=== PATIENT | female | born 1935 | race Caucasian/White ===

== ENCOUNTER 2017-02-15 19:11 | Inpatient (IN) | payer MEDICARE ==
[2017-02-15] MEDS ORDERED: SODIUM CHLORIDE 0.9% 1,000 ML IV ONE ×3 (19:53→21:36)
[2017-02-15 20:24] LABS: Anisocytosis Slight; Basophils % (A) 0 %; CH 28.4; CHCM 32.6; Eosinophils % (A) 0 %; HCT 46.2 % (34.0-46.0); HDW 2.64; HGB 14.6 gm/dL (11.4-16.0); Luc % (Auto) 2; Lymphocytes % (A) 6 %; MCH 27.6 pg (25.0-35.0); MCHC 31.5 g/dL (31.0-37.0); MCV 87.7 fL (80.0-100.0); Mean Platelet Volume 8.2; Monocytes % (A) 6 %; Neutrophils # (A) 14.2 k/uL (1.3-7.7); Neutrophils % (A) 86 %; RBC 5.27 m/uL (3.80-5.40); RDW 16.7 % (11.5-15.5); WBC 16.5 k/uL (3.8-10.6); WBC (Perox) 15.99
[2017-02-15 20:32] LABS: INR 1.3 (<1.2); Prothrombin Time 12.4 sec (9.0-12.0)
[2017-02-15 20:34] LABS: Calcium 10.7 mg/dL (8.4-10.2); Magnesium 2.3 mg/dL (1.6-2.3); Potassium 3.7 mmol/L (3.5-5.1); Total Bilirubin 1.1 mg/dL (0.2-1.3); Total Protein 6.6 g/dL (6.3-8.2)
--- NOTE | 2017-02-15 20:35 | CT ---
EXAMINATION TYPE: CT brain lety ni DATE OF EXAM: 02/15/2017 COMPARISON: NONE HISTORY: Fall CT DLP: 1633 mGycm Automated exposure control for dose reduction was used. TECHNIQUE: CT scan of the head and cervical spine are performed without contrast. FINDINGS: There is cerebral cortical atrophy. There is no mass effect nor midline shift. There is n o sign of intracranial hemorrhage. The calvarium is intact. There is mucosal thickening in the maxill jennifer sinuses. There is deformity of the right lobe. There is a few millimeter anterior subluxation of C3 in relation to C4. There is moderate narrowing o f C3-4 C4-5 disc spaces with spurring of the endplates. There is mild hypertrophic facet arthropathy. The skull base is intact. Posterior elements are intact. IMPRESSION: Cerebral atrophy. No acute intracranial abnormality. Mild chronic small vessel ischemia. Sinusitis. Spondylotic changes in the cervical spine. No fracture.
--- NOTE | 2017-02-15 20:36 | XR ---
EXAMINATION TYPE: XR pelvis AP view DATE OF EXAM: 02/15/2017 COMPARISON: NONE HISTORY: Pain TECHNIQUE: Single view FINDINGS: Pelvic ring is intact. Proximal femurs are intact. I see no fracture. Sacroiliac joints are intact. IMPRESSION: No fracture.
--- NOTE | 2017-02-15 20:37 | XR ---
EXAMINATION TYPE: XR chest 2V DATE OF EXAM: 02/15/2017 COMPARISON: NONE HISTORY: Fall. Chest pain. TECHNIQUE: Frontal and lateral views of the chest are obtained. FINDINGS: There is hiatal hernia. There is no heart failure. Heart size is normal. Costophrenic angl es are clear. There is no sign of pleural effusion or pneumothorax. There is severe right shoulder ten int subacromial joint space narrowing. IMPRESSION: Hiatal hernia. No active cardiopulmonary disease.
[2017-02-15 20:48] LABS: Partial Thromboplastin Time 21.7 sec (22.0-30.0)
[2017-02-15 20:56] LABS: Creatine Kinase MB 2.9 ng/mL (0.0-2.4); Troponin I 0.071 ng/mL (0.000-0.034)
[2017-02-15 21:09] LABS: Appearance,Urine Turbid (Clear); Bacteria,Urine Many /hpf; Bilirubin,Urine Negative (Negative); Glucose,Urine (UA) Negative (Negative); Ketones,Urine Negative (Negative); Leukocyte Esterase,Urine Large (Negative); Nitrite,Urine Negative (Negative); PH, Urine 5.5 (5.0-8.0); Particle Count 18113; Protein,Urine 2+ (Negative); RBC,Urine 3 /hpf (0-5); Specific Gravity,Urine 1.012 (1.001-1.035); Squamous Epithelial Cell,Urine 2 /hpf (0-4); UA Billing (MACRO vs. MICRO) MICRO; Urobilinogen,Urine <2.0 mg/dL (<2.0); WBC,Urine >182 /hpf (0-5)
[2017-02-15] MEDS ORDERED: SODIUM CHLORIDE 0.9% 1,000 ML IV SCH (21:45)
[2017-02-15] MEDS ORDERED: ASPIRIN 81 MG PO STA (22:07)
[2017-02-15] MEDS ORDERED: LEVOFLOXACIN 750MG-D5W PMX 750 MG in DEXTROSE/WATER 1 150ML.BAG IVPB STA (22:07)
[2017-02-15] MEDS ORDERED: HEPARIN SODIUM,PORCINE 5,000 UNIT/ML 1 ML VIAL IV ONE (22:07)
[2017-02-15] MEDS ORDERED: HEPARIN SODIUM,PORCINE/D5W PMX 25,000 UNIT in DEXTROSE/WATER 1 500ML.BAG IV SCH (22:15)
--- NOTE | 2017-02-15 22:31 | ED ---
Fall HPI - General Chief Complaint: Fall Stated Complaint: Fall Time Seen by Provider: 02/15/17 19:20 Source: EMS, RN notes reviewed, old records reviewed Mode of arrival: EMS - History of Present Illness Initial Comments: This is an 81-year-old female presenting to emergency Department after being found by her daughter after laying in her living room for the past 2 days. Apparently patient fell. She was found with her head resting on the back of her recliner. Patient started reports that she laid down her and did laying in her feces and urine. Patient's daughter reports she is extremely dehydrated and thirsty when they arrived. Patient denies any pain. She is extremely hard of hearing. Known history of kidney disease. She states that she's had no cardiac abnormalities. She denies any chest pain shortness of breath, denies any leg or hip pain or headache. - Related Data Home Medications Medication Instructions Recorded Confirmed Loratadine [Claritin] 10 mg PO DAILY 02/15/17 02/15/17 ALPRAZolam [Xanax] 0.5 mg PO TID 02/16/17 02/16/17 Albuterol Inhaler [Ventolin Hfa 2 puff INHALATION RT-Q4H PRN 02/16/17 02/16/17 Inhaler] Allopurinol [Zyloprim] 300 mg PO DAILY 02/16/17 02/16/17 Dicyclomine HCl 10 mg PO QID 02/16/17 02/16/17 Fluticasone Nasal [place] [Flonase 1 spray EA NOSTRIL DAILY 02/16/17 02/16/17 Nasal [place]] Hydrocodone/Acetaminophen [[place] 1 tab PO Q6HR PRN 02/16/17 02/16/17 5-325] Levothyroxine Sodium [Synthroid] 25 mcg PO DAILY 02/16/17 02/16/17 Potassium Chloride [K-Tab ER] 10 meq PO DAILY 02/16/17 02/16/17 Ranitidine HCl [Zantac] 150 mg PO BID 02/16/17 02/16/17 Allergies Allergy/AdvReac Type Severity Reaction Status Date / Time No Known Allergies Allergy Verified 02/15/17 20:23 Review of Systems ROS Statement: Those systems with pertinent positive or pertinent negative responses have been documented in the HPI. ROS Other: All systems not noted in ROS Statement are negative. Past Medical History Past Medical History: Dementia History of Any Multi-Drug Resistant Organisms: None Reported Past Surgical History: No Surgical Hx Reported Past Psychological History: No Psychological Hx Reported Smoking Status: Never smoker Past Alcohol Use History: None Reported Past Drug Use History: None Reported - Past Family History Father Family Medical History: No Reported History Mother Family Medical History: No Reported History, Osteoarthritis (OA), Rheumatoid Arthritis (RA) Additional Family Medical History / Comment(s): kidney problems, specific type unknown General Exam - General Exam Comments Initial Comments: Pleasant 81-year-old female. Patient is extremely hard of hearing. Limitations: no limitations General appearance: alert, in no apparent distress Head exam: Present: atraumatic, normocephalic, normal inspection Eye exam: Present: normal appearance, PERRL, EOMI. Absent: scleral icterus, conjunctival injection, periorbital swelling ENT exam: Present: normal exam, mucous membranes moist Neck exam: Present: normal inspection. Absent: tenderness, meningismus, lymphadenopathy Respiratory exam: Present: normal lung sounds bilaterally. Absent: respiratory distress, wheezes, rales, rhonchi, stridor Course Vital Signs 02/15/17 02/15/17 19:14 23:07 Temperature 97.8 F 97.8 F Pulse Rate 78 78 Respiratory 18 16 Rate Blood Pressure 101/58 125/79 O2 Sat by Pulse 98 99 Oximetry Medical Decision Making - Medical Decision Making 9-year-old female presents or urgency department on her living room laying on the floor for 2 days. She is lingering her own feces and stool. Patient has a known history of kidney disease. Patient labwork was reviewed, evidence of urinary tract infection, pelvis of leukocytosis. Patient's chest x-ray KUB completed CT brain and C-spine were negative for any acute process. Patient also had elevated lactic acid. Patient does appear to be very dehydrated elevated BUN/creatinine. Patient was given 2 L fluids, started on Rocephin for her urinary tract infection, as well as noted elevated troponin. We'll repeat the troponin care. Patient be admitted at this time. - Lab Data Result diagrams: 02/17/17 06:02 02/17/17 06:02 Lab Results 02/15/17 02/15/17 02/15/17 Range/Units 20:05 20:05 20:05 WBC 16.5 H (3.8-10.6) k/uL RBC 5.27 (3.80-5.40) m/uL Hgb 14.6 (11.4-16.0) gm/dL Hct 46.2 H (34.0-46.0) % MCV 87.7 (80.0-100.0) fL MCH 27.6 (25.0-35.0) pg MCHC 31.5 (31.0-37.0) g/dL RDW 16.7 H (11.5-15.5) % Plt Count 359 (150-450) k/uL Neutrophils % 86 % Lymphocytes % 6 % Monocytes % 6 % Eosinophils % 0 % Basophils % 0 % Neutrophils # 14.2 H (1.3-7.7) k/uL Lymphocytes # 1.0 (1.0-4.8) k/uL Monocytes # 1.0 (0-1.0) k/uL Eosinophils # 0.0 (0-0.7) k/uL Basophils # 0.0 (0-0.2) k/uL Anisocytosis Slight PT 12.4 H (9.0-12.0) sec INR 1.3 H (<1.2) APTT 21.7 L (22.0-30.0) sec Sodium 146 H (137-145) mmol/L Potassium 3.7 (3.5-5.1) mmol/L Chloride 103 (98-107) mmol/L Carbon Dioxide 29 (22-30) mmol/L Anion Gap 14 mmol/L BUN 91 H* (7-17) mg/dL Creatinine 2.80 H (0.52-1.04) mg/dL Est GFR (MDRD) Af Amer 20 (>60 ml/min/1.73 sqM) Est GFR (MDRD) Non-Af 16 (>60 ml/min/1.73 sqM) Glucose 120 H (74-99) mg/dL Lactic Ac Sepsis Rflx Plasma Lactic Acid Kuldip (0.7-2.0) mmol/L Calcium 10.7 H (8.4-10.2) mg/dL Magnesium 2.3 (1.6-2.3) mg/dL Total Bilirubin 1.1 (0.2-1.3) mg/dL AST 58 H (14-36) U/L ALT 27 (9-52) U/L Alkaline Phosphatase 82 (38-126) U/L Creatine Kinase 389 H (30-135) U/L Total Creatine Kinase (30-135) U/L CK-MB (CK-2) (0.0-2.4) ng/mL CK-MB (CK-2) Rel Index Troponin I (0.000-0.034) ng/mL Total Protein 6.6 (6.3-8.2) g/dL Albumin 3.6 (3.5-5.0) g/dL Urine Color Urine Appearance (Clear) Urine pH (5.0-8.0) Ur Specific [place] (1.001-1.035) Urine Protein (Negative) Urine Glucose (UA) (Negative) Urine Ketones (Negative) Urine Blood (Negative) Urine Nitrite (Negative) Urine Bilirubin (Negative) Urine Urobilinogen (<2.0) mg/dL Ur Leukocyte Esterase (Negative) Urine RBC (0-5) /hpf Urine WBC (0-5) /hpf Urine WBC Clumps (None) /hpf Ur Squamous Epith Cells (0-4) /hpf Urine Bacteria (None) /hpf Hyaline Casts (0-2) /lpf Urine Yeast (Budding) (None) /hpf 02/15/17 02/15/17 02/15/17 Range/Units 20:05 20:05 20:47 WBC (3.8-10.6) k/uL RBC (3.80-5.40) m/uL Hgb (11.4-16.0) gm/dL Hct (34.0-46.0) % MCV (80.0-100.0) fL MCH (25.0-35.0) pg MCHC (31.0-37.0) g/dL RDW (11.5-15.5) % Plt Count (150-450) k/uL Neutrophils % % Lymphocytes % % Monocytes % % Eosinophils % % Basophils % % Neutrophils # (1.3-7.7) k/uL Lymphocytes # (1.0-4.8) k/uL Monocytes # (0-1.0) k/uL Eosinophils # (0-0.7) k/uL Basophils # (0-0.2) k/uL Anisocytosis PT (9.0-12.0) sec INR (<1.2) APTT (22.0-30.0) sec Sodium (137-145) mmol/L Potassium (3.5-5.1) mmol/L Chloride (98-107) mmol/L Carbon Dioxide (22-30) mmol/L Anion Gap mmol/L BUN (7-17) mg/dL Creatinine (0.52-1.04) mg/dL Est GFR (MDRD) Af Amer (>60 ml/min/1.73 sqM) Est GFR (MDRD) Non-Af (>60 ml/min/1.73 sqM) Glucose (74-99) mg/dL Lactic Ac Sepsis Rflx Y Plasma Lactic Acid Kuldip 3.0 H* (0.7-2.0) mmol/L Calcium (8.4-10.2) mg/dL Magnesium (1.6-2.3) mg/dL Total Bilirubin (0.2-1.3) mg/dL AST (14-36) U/L ALT (9-52) U/L Alkaline Phosphatase (38-126) U/L Creatine Kinase (30-135) U/L Total Creatine Kinase 368 H (30-135) U/L CK-MB (CK-2) 2.9 H* (0.0-2.4) ng/mL CK-MB (CK-2) Rel Index 0.8 Troponin I 0.071 H* (0.000-0.034) ng/mL Total Protein (6.3-8.2) g/dL Albumin (3.5-5.0) g/dL Urine Color Urine Appearance (Clear) Urine pH (5.0-8.0) Ur Specific [place] (1.001-1.035) Urine Protein (Negative) Urine Glucose (UA) (Negative) Urine Ketones (Negative) Urine Blood (Negative) Urine Nitrite (Negative) Urine Bilirubin (Negative) Urine Urobilinogen (<2.0) mg/dL Ur Leukocyte Esterase (Negative) Urine RBC (0-5) /hpf Urine WBC (0-5) /hpf Urine WBC Clumps (None) /hpf Ur Squamous Epith Cells (0-4) /hpf Urine Bacteria (None) /hpf Hyaline Casts (0-2) /lpf Urine Yeast (Budding) (None) /hpf 02/15/17 Range/Units 20:50 WBC (3.8-10.6) k/uL RBC (3.80-5.40) m/uL Hgb (11.4-16.0) gm/dL Hct (34.0-46.0) % MCV (80.0-100.0) fL MCH (25.0-35.0) pg MCHC (31.0-37.0) g/dL RDW (11.5-15.5) % Plt Count (150-450) k/uL Neutrophils % % Lymphocytes % % Monocytes % % Eosinophils % % Basophils % % Neutrophils # (1.3-7.7) k/uL Lymphocytes # (1.0-4.8) k/uL Monocytes # (0-1.0) k/uL Eosinophils # (0-0.7) k/uL Basophils # (0-0.2) k/uL Anisocytosis PT (9.0-12.0) sec INR (<1.2) APTT (22.0-30.0) sec Sodium (137-145) mmol/L Potassium (3.5-5.1) mmol/L Chloride (98-107) mmol/L Carbon Dioxide (22-30) mmol/L Anion Gap mmol/L BUN (7-17) mg/dL Creatinine (0.52-1.04) mg/dL Est GFR (MDRD) Af Amer (>60 ml/min/1.73 sqM) Est GFR (MDRD) Non-Af (>60 ml/min/1.73 sqM) Glucose (74-99) mg/dL Lactic Ac Sepsis Rflx Plasma Lactic Acid Kuldip (0.7-2.0) mmol/L Calcium (8.4-10.2) mg/dL Magnesium (1.6-2.3) mg/dL Total Bilirubin (0.2-1.3) mg/dL AST (14-36) U/L ALT (9-52) U/L Alkaline Phosphatase (38-126) U/L Creatine Kinase (30-135) U/L Total Creatine Kinase (30-135) U/L CK-MB (CK-2) (0.0-2.4) ng/mL CK-MB (CK-2) Rel Index Troponin I (0.000-0.034) ng/mL Total Protein (6.3-8.2) g/dL Albumin (3.5-5.0) g/dL Urine Color Yellow Urine Appearance Turbid H (Clear) Urine pH 5.5 (5.0-8.0) Ur Specific [place] 1.012 (1.001-1.035) Urine Protein 2+ H (Negative) Urine Glucose (UA) Negative (Negative) Urine Ketones Negative (Negative) Urine Blood Small H (Negative) Urine Nitrite Negative (Negative) Urine Bilirubin Negative (Negative) Urine Urobilinogen <2.0 (<2.0) mg/dL Ur Leukocyte Esterase Large H (Negative) Urine RBC 3 (0-5) /hpf Urine WBC >182 H (0-5) /hpf Urine WBC Clumps Many H (None) /hpf Ur Squamous Epith Cells 2 (0-4) /hpf Urine Bacteria Many H (None) /hpf Hyaline Casts 15 H (0-2) /lpf Urine Yeast (Budding) Few H (None) /hpf 02/15/17 22:31 EKG performed at 1924 shows normal sinus rhythm. Evidence of inferior infarct. Ventricular rate 78 beats were noted. AK interval 1:30. To ascertain 6 segs. QT QTc is 41 seconds. - Radiology Data Radiology results: report reviewed Chest x-ray was reviewed and negative for any acute process, pelvis x-ray was negative for any fracture. CT brainand showed no acute abnormality's, evidence of spinal changes. Disposition Clinical Impression: Fall, Renal insufficiency, Elevated troponin, [place] (hard of hearing), Dehydration, UTI (urinary tract infection) Disposition: ADMITTED IP TO THIS [facility] Time of Disposition: 22:31
[2017-02-15] MEDS ORDERED: NALOXONE 0.4 MG/ML 1 ML VIAL IV PRN (22:34)
[2017-02-16] MEDS ORDERED: MELATONIN 3 MG TABLET PO PRN (00:02)
[2017-02-16] MEDS ORDERED: ACETAMINOPHEN TAB 325 MG TAB PO PRN (00:02)
[2017-02-16 00:25] VITALS: BMI 28.0
--- NOTE | 2017-02-16 00:26 | P.HPIM ---
History of Present Illness H&P Date: 02/16/17 Chief Complaint: Fall This is a 9-year-old female with history of dementia no home medications Colazal and her home. Patient is very hard of hearing so is being quite a few difficulties obtaining history from her. Apparently patient was brought in by family will follow patient at her house on the floor. Last time they contacted the patient most 2 days prior to this admission and apparently she was in her usual state of health. Today when they come over to her home to take her out she was sitting down on the floor but urine all over and not able to get up but nothing apparent distress and awake. Patient states that she fell down on the floor may be even slowly lower herself and she cannot describe any circumstances or with her happened. Patient is currently in no any apparent distress. She denies any headache, shortness of breath or cough, chest pain, abdominal pain, diarrhea, dysuria, fever or chills. In the emergency department blood work was significant for leukocytosis elevated creatinine and BUNs and more than 100 of 80 WBCs in her urine with large leukocyte esterase. Patient vital signs were stable she was afebrile on admission but she did have elevated lactic acid up to 3 and mild elevation in her troponin. Patient states that she lives alone in her house with her family occasionally visiting. Review of Systems Constitutional: Denies chills, Denies fever Ears: bilateral: decreased hearing Cardiovascular: Denies chest pain, Denies shortness of breath Respiratory: Denies cough Gastrointestinal: Denies abdominal pain, Denies diarrhea, Denies nausea, Denies vomiting Genitourinary: Denies dysuria, Denies flank pain, Denies hematuria, Denies urgency, Denies urinary frequency Integumentary: Denies rash Neurological: Reports hearing difficulties Psychiatric: Reports memory loss, Denies anxiety Endocrine: Denies cold intolerance, Denies heat intolerance, Denies polyuria Past Medical History Past Medical History: Dementia History of Any Multi-Drug Resistant Organisms: None Reported Past Surgical History: No Surgical Hx Reported Past Psychological History: No Psychological Hx Reported Smoking Status: Never smoker Past Alcohol Use History: None Reported Past Drug Use History: None Reported Medications and Allergies Home Medications Medication Instructions Recorded Confirmed Type Loratadine [Claritin] 10 mg PO DAILY 02/15/17 02/15/17 History Allergies Allergy/AdvReac Type Severity Reaction Status Date / Time No Known Allergies Allergy Verified 02/15/17 20:23 Physical Exam Vitals: Vital Signs Temp Pulse Resp BP Pulse Ox 02/15/17 23:07 97.8 F 78 16 125/79 99 02/15/17 19:14 97.8 F 78 18 101/58 98 Intake and Output 02/15/17 02/15/17 02/16/17 14:59 22:59 06:59 Other: Weight 72.575 kg Patient Weight 02/16/17 06:59 Weight 72.575 kg - Constitutional General appearance: cooperative, no acute distress - EENT Right eye cataract Eyes: no scleral icterus ENT: hard of hearing, normal oropharynx - Neck Neck: no lymphadenopathy, normal ROM, no thyromegaly - Respiratory Respiratory: bilateral: CTA - Cardiovascular Rhythm: regular Heart sounds: normal: S1, S2 - Gastrointestinal Right costal vertebral angle tenderness present General gastrointestinal: normal bowel sounds, no organomegaly, soft, no tenderness - Integumentary Integumentary: no cellulitis, no rash - Neurologic Neurologic: CNII-XII intact - Musculoskeletal Musculoskeletal: no generalized weakness, strength equal bilaterally Neurological examination cranial nerves seem to be intact with limitation of patient level of cooperation Motor in upper and lower extremities 5 out of 5 proximally and distally DTRs are 1+ and symmetrical in patellar No clonus Plantar is flexor Results CBC & Chem 7: 02/15/17 20:05 02/15/17 20:05 Labs: Abnormal Lab Results - Last 24 Hours (Table) 02/15/17 02/15/17 02/15/17 Range/Units 20:05 20:05 20:05 WBC 16.5 H (3.8-10.6) k/uL Hct 46.2 H (34.0-46.0) % RDW 16.7 H (11.5-15.5) % Neutrophils # 14.2 H (1.3-7.7) k/uL PT 12.4 H (9.0-12.0) sec INR 1.3 H (<1.2) APTT 21.7 L (22.0-30.0) sec Sodium 146 H (137-145) mmol/L BUN 91 H* (7-17) mg/dL Creatinine 2.80 H (0.52-1.04) mg/dL Glucose 120 H (74-99) mg/dL Plasma Lactic Acid Kuldip (0.7-2.0) mmol/L Calcium 10.7 H (8.4-10.2) mg/dL AST 58 H (14-36) U/L Creatine Kinase 389 H (30-135) U/L Total Creatine Kinase (30-135) U/L CK-MB (CK-2) (0.0-2.4) ng/mL Troponin I (0.000-0.034) ng/mL Urine Appearance (Clear) Urine Protein (Negative) Urine Blood (Negative) Ur Leukocyte Esterase (Negative) Urine WBC (0-5) /hpf Urine WBC Clumps (None) /hpf Urine Bacteria (None) /hpf Hyaline Casts (0-2) /lpf Urine Yeast (Budding) (None) /hpf 02/15/17 02/15/17 02/15/17 Range/Units 20:05 20:05 20:50 WBC (3.8-10.6) k/uL Hct (34.0-46.0) % RDW (11.5-15.5) % Neutrophils # (1.3-7.7) k/uL PT (9.0-12.0) sec INR (<1.2) APTT (22.0-30.0) sec Sodium (137-145) mmol/L BUN (7-17) mg/dL Creatinine (0.52-1.04) mg/dL Glucose (74-99) mg/dL Plasma Lactic Acid Kuldip 3.0 H* (0.7-2.0) mmol/L Calcium (8.4-10.2) mg/dL AST (14-36) U/L Creatine Kinase (30-135) U/L Total Creatine Kinase 368 H (30-135) U/L CK-MB (CK-2) 2.9 H* (0.0-2.4) ng/mL Troponin I 0.071 H* (0.000-0.034) ng/mL Urine Appearance Turbid H (Clear) Urine Protein 2+ H (Negative) Urine Blood Small H (Negative) Ur Leukocyte Esterase Large H (Negative) Urine WBC >182 H (0-5) /hpf Urine WBC Clumps Many H (None) /hpf Urine Bacteria Many H (None) /hpf Hyaline Casts 15 H (0-2) /lpf Urine Yeast (Budding) Few H (None) /hpf Thrombosis Risk Factor Assmnt - DVT/VTE Prophylaxis DVT/VTE Prophylaxis: Pharmacologic Prophylaxis ordered Assessment and Plan (1) UTI (urinary tract infection) Narrative/Plan: Patient exhibits evidence of urinary tract infection with 30 for leukocytosis and elevated lactic acid consistent with sepsis She has a right CVA tenderness and I'm worried about acute pyelonephritis She was given levofloxacin in the emergency department Plan he is to start her on ceftriaxone I will also obtain urine and blood cultures Repeat lactic acid Continue IV fluids Check postvoiding residuals to rule out urinary retention as etiology of urinary tract infection Status: Acute (2) AVERY (acute kidney injury) Narrative/Plan: Favor pre-renal nonoliguric C PK mildly elevated and does not explain Check post voiding residuals to rule out urinary retention Monitor urine output and recheck BUNs/creatinine the morning Status: Acute (3) Elevated troponin Narrative/Plan: Suspect due to acute kidney injury No complaint of chest pain or shortness of breath Repeat troponin has been ordered and pending Status: Acute (4) Fall Narrative/Plan: Fall with dementia and home situation Patient definitely needs more support and likely will need penitentiary placement at the time of discharge Consults social work Consult physical and occupational therapy Status: Acute Time with Patient: Greater than 30
[2017-02-16 01:34] LABS: Cholesterol 106 mg/dL (<200); HDL Cholesterol 52 mg/dL (40-60)
[2017-02-16 02:21] LABS: Creatine Kinase MB 3.2 ng/mL (0.0-2.4); Troponin I 0.054 ng/mL (0.000-0.034)
[2017-02-16] MEDS ORDERED: SODIUM CHLORIDE 0.45% 1,000 ML IV SCH (06:30)
[2017-02-16 08:20] LABS: CH 27.3; CHCM 30.7; HCT 41.1 % (34.0-46.0); Hypochromasia Slight; MCH 28.3 pg (25.0-35.0); MCHC 31.6 g/dL (31.0-37.0); MCV 89.5 fL (80.0-100.0); Mean Platelet Volume 7.1; RBC 4.59 m/uL (3.80-5.40); RDW 15.5 % (11.5-15.5); WBC 12.7 k/uL (3.8-10.6)
[2017-02-16 08:24] LABS: Calcium 9.4 mg/dL (8.4-10.2); Magnesium 1.8 mg/dL (1.6-2.3); Total Bilirubin 0.5 mg/dL (0.2-1.3); Total Protein 5.5 g/dL (6.3-8.2)
[2017-02-16 08:49] LABS: Creatine Kinase MB 4.5 ng/mL (0.0-2.4); Troponin I 0.064 ng/mL (0.000-0.034)
--- NOTE | 2017-02-16 10:07 | P.PN ---
Subjective Principal diagnosis: Fall, weakness Patient is an 81-year-old female with history of dementia and ALLERGIC rhinitis who was brought in by family after being found covered in urine and feces on the floor for house. Her last known normal had been 2 days prior. In the emergency department she underwent an extensive evaluation. She was found to have a urinary tract infection with elevated lactic acid and was started on IV fluids and antibiotics. Her troponin was found to be slightly elevated. Arrangements were made for her to get admitted to the selective care unit. Upon admission her antibiotics were maintained. She was found to have a candidal infection of the left abdominal fold and nystatin was ordered. Patient seen and examined at bedside. She is extremely hard of hearing conversation is difficult. She states she has had diarrhea for a few days. She is also recently been treated for an urinary tract infection with antibiotics. She thought her urinary tract infection may not have been resolved and called her PCP but he was out of the office for one week. She denies any chest pain, shortness of breath, or nausea. Objective - Vital Signs Vital signs: Vital Signs Temp 98.6 F 02/16/17 04:00 Pulse 82 02/16/17 04:00 Resp 18 02/16/17 04:00 BP 120/59 02/16/17 04:00 Pulse Ox 97 02/16/17 04:00 Intake & Output 02/15/17 02/16/17 02/16/17 18:59 06:59 18:59 Intake Total 300 Balance 300 Weight 71.5 kg Intake: Oral 300 Other: Voiding Method Bedpan - Exam General: non toxic, no distress, appears at stated age Derm: no rashes, no lesions Head: atraumatic, normocephalic, symmetric Eyes: EOMI, no lid lag, anicteric sclera ENT: no post nasal drip, no thrush Mouth: no lip lesion, dry membranes moist Cardiovascular: S1S2 reg, no murmur, positive posterior tibial pulse bilateral, Lungs: CTA bilateral, no rhonchi, no rales , no accessory muscle use Abdominal: soft, nontender to palpation, no guarding, no appreciable organomegaly Ext: no gross muscle atrophy, no edema, no contractures Neuro: CN II-XI grossly intact, no focal neuro deficits Psych: Alert, oriented, appropriate affect - Labs CBC & Chem 7: 02/16/17 07:54 02/16/17 07:54 Labs: Abnormal Lab Results - Last 24 Hours (Table) 02/15/17 02/15/17 02/15/17 Range/Units 20:05 20:05 20:05 WBC 16.5 H (3.8-10.6) k/uL Hct 46.2 H (34.0-46.0) % RDW 16.7 H (11.5-15.5) % Neutrophils # 14.2 H (1.3-7.7) k/uL PT 12.4 H (9.0-12.0) sec INR 1.3 H (<1.2) APTT 21.7 L (22.0-30.0) sec Sodium 146 H (137-145) mmol/L Potassium (3.5-5.1) mmol/L BUN 91 H* (7-17) mg/dL Creatinine 2.80 H (0.52-1.04) mg/dL Glucose 120 H (74-99) mg/dL Plasma Lactic Acid Kuldip (0.7-2.0) mmol/L Calcium 10.7 H (8.4-10.2) mg/dL AST 58 H (14-36) U/L Creatine Kinase 389 H (30-135) U/L Total Creatine Kinase (30-135) U/L CK-MB (CK-2) (0.0-2.4) ng/mL Troponin I (0.000-0.034) ng/mL Total Protein (6.3-8.2) g/dL Albumin (3.5-5.0) g/dL Urine Appearance (Clear) Urine Protein (Negative) Urine Blood (Negative) Ur Leukocyte Esterase (Negative) Urine WBC (0-5) /hpf Urine WBC Clumps (None) /hpf Urine Bacteria (None) /hpf Hyaline Casts (0-2) /lpf Urine Yeast (Budding) (None) /hpf 02/15/17 02/15/17 02/15/17 Range/Units 20:05 20:05 20:50 WBC (3.8-10.6) k/uL Hct (34.0-46.0) % RDW (11.5-15.5) % Neutrophils # (1.3-7.7) k/uL PT (9.0-12.0) sec INR (<1.2) APTT (22.0-30.0) sec Sodium (137-145) mmol/L Potassium (3.5-5.1) mmol/L BUN (7-17) mg/dL Creatinine (0.52-1.04) mg/dL Glucose (74-99) mg/dL Plasma Lactic Acid Kuldip 3.0 H* (0.7-2.0) mmol/L Calcium (8.4-10.2) mg/dL AST (14-36) U/L Creatine Kinase (30-135) U/L Total Creatine Kinase 368 H (30-135) U/L CK-MB (CK-2) 2.9 H* (0.0-2.4) ng/mL Troponin I 0.071 H* (0.000-0.034) ng/mL Total Protein (6.3-8.2) g/dL Albumin (3.5-5.0) g/dL Urine Appearance Turbid H (Clear) Urine Protein 2+ H (Negative) Urine Blood Small H (Negative) Ur Leukocyte Esterase Large H (Negative) Urine WBC >182 H (0-5) /hpf Urine WBC Clumps Many H (None) /hpf Urine Bacteria Many H (None) /hpf Hyaline Casts 15 H (0-2) /lpf Urine Yeast (Budding) Few H (None) /hpf 02/16/17 02/16/17 02/16/17 Range/Units 01:09 07:33 07:54 WBC (3.8-10.6) k/uL Hct (34.0-46.0) % RDW (11.5-15.5) % Neutrophils # (1.3-7.7) k/uL PT (9.0-12.0) sec INR (<1.2) APTT (22.0-30.0) sec Sodium (137-145) mmol/L Potassium 3.0 L* (3.5-5.1) mmol/L BUN 68 H (7-17) mg/dL Creatinine 2.30 H (0.52-1.04) mg/dL Glucose (74-99) mg/dL Plasma Lactic Acid Kuldip (0.7-2.0) mmol/L Calcium (8.4-10.2) mg/dL AST 41 H (14-36) U/L Creatine Kinase (30-135) U/L Total Creatine Kinase 342 H 337 H (30-135) U/L CK-MB (CK-2) 3.2 H* 4.5 H* (0.0-2.4) ng/mL Troponin I 0.054 H* 0.064 H* (0.000-0.034) ng/mL Total Protein 5.5 L (6.3-8.2) g/dL Albumin 2.9 L (3.5-5.0) g/dL Urine Appearance (Clear) Urine Protein (Negative) Urine Blood (Negative) Ur Leukocyte Esterase (Negative) Urine WBC (0-5) /hpf Urine WBC Clumps (None) /hpf Urine Bacteria (None) /hpf Hyaline Casts (0-2) /lpf Urine Yeast (Budding) (None) /hpf 02/16/17 Range/Units 07:54 WBC 12.7 H (3.8-10.6) k/uL Hct (34.0-46.0) % RDW (11.5-15.5) % Neutrophils # (1.3-7.7) k/uL PT (9.0-12.0) sec INR (<1.2) APTT (22.0-30.0) sec Sodium (137-145) mmol/L Potassium (3.5-5.1) mmol/L BUN (7-17) mg/dL Creatinine (0.52-1.04) mg/dL Glucose (74-99) mg/dL Plasma Lactic Acid Kuldip (0.7-2.0) mmol/L Calcium (8.4-10.2) mg/dL AST (14-36) U/L Creatine Kinase (30-135) U/L Total Creatine Kinase (30-135) U/L CK-MB (CK-2) (0.0-2.4) ng/mL Troponin I (0.000-0.034) ng/mL Total Protein (6.3-8.2) g/dL Albumin (3.5-5.0) g/dL Urine Appearance (Clear) Urine Protein (Negative) Urine Blood (Negative) Ur Leukocyte Esterase (Negative) Urine WBC (0-5) /hpf Urine WBC Clumps (None) /hpf Urine Bacteria (None) /hpf Hyaline Casts (0-2) /lpf Urine Yeast (Budding) (None) /hpf Assessment and Plan Plan: #UTI, present on admission, not related to Urban catheter -Continue with Rocephin -Await blood and urine cultures -IV fluids #Elevated lactic acid, improved -Continue with IV fluids #Acute kidney injury with probable baseline chronic kidney disease -Avoid nephrotoxic agents -Related to dehydration -IV fluids -Follow basic metabolic profile #Elevated troponin -Secondary to acute kidney injury, flat, no EKG changes -Check echocardiogram, if normal no additional investigation needed #Hypercalcemia, likely secondary to dehydration -Improved after IV fluid resuscitation #Hypokalemia -Replace and recheck #Fall -PT/OT evaluation, may need placement on discharge #Possible dementia -Safe and supportive environment DVT prophylaxis: Heparin Discussed with: Patient, nursing, awaiting for family to arrive Anticipated discharge: 48-[address] A total of 45 minutes was spent on the care of this complex patient more than 50 % of the time was spent in counseling and care coordination.
[2017-02-16] MEDS: POTASSIUM CHLORIDE 20 MEQ, LIDOCAINE 2% INJ 20 MG in SODIUM CHLORIDE 0.9% 100 ML IVPB SCH ×2 (10:31→12:51)
[2017-02-16] MEDS ORDERED: ONDANSETRON 4 MG/2 ML VIAL IVP PRN (11:34)
[2017-02-16] MEDS: HEPARIN SODIUM,PORCINE 5,000 UNIT/ML 1 ML VIAL SQ SCH ×2 (12:51→21:05)
[2017-02-16] MEDS ORDERED: ALBUTEROL NEBULIZED 2.5 MG/3 ML INHALATION PRN (13:31)
[2017-02-16] MEDS ORDERED: HYDROcodone/APAP 5-325MG 1 EACH TAB PO PRN (13:31)
[2017-02-16] MEDS: DICYCLOMINE 10 MG CAP PO SCH ×2 (17:44→21:04)
[2017-02-16] MEDS: LORATADINE 10 MG TAB PO SCH (17:44)
[2017-02-16] MEDS: ALPRAZolam 0.5 MG TAB PO SCH ×2 (17:45→21:04)
[2017-02-16] MEDS: NYSTATIN 100,000 UNIT/GM POWD 15 GM TOPICAL SCH (21:04)
[2017-02-17 06:15] LABS: Anisocytosis Slight; CH 28.3; CHCM 32.1; HDW 2.61; HGB 11.4 gm/dL (11.4-16.0); MCH 27.2 pg (25.0-35.0); MCHC 30.7 g/dL (31.0-37.0); MCV 88.7 fL (80.0-100.0); Mean Platelet Volume 8.7; RBC 4.18 m/uL (3.80-5.40); RDW 16.6 % (11.5-15.5); WBC 9.2 k/uL (3.8-10.6)
[2017-02-17] MEDS: LEVOTHYROXINE 25 MCG TAB PO SCH (06:17)
[2017-02-17 06:21] LABS: Calcium 9.4 mg/dL (8.4-10.2); Magnesium 1.7 mg/dL (1.6-2.3); Potassium 3.3 mmol/L (3.5-5.1); Total Bilirubin 0.3 mg/dL (0.2-1.3); Total Protein 4.9 g/dL (6.3-8.2)
[2017-02-17] MEDS ORDERED: POTASSIUM CHLORIDE ORAL LIQUID 40 MEQ/30 ML CUP PO ONE (08:00)
--- NOTE | 2017-02-17 08:56 | P.PN ---
Subjective Principal diagnosis: Fall, weakness Patient is an 81-year-old female with history of dementia, HTN, CHF, and allergic rhinitis who was brought in by family after being found covered in urine and feces on the floor of her house. Her last known normal had been 2 days prior. In the emergency department she underwent an extensive evaluation. She was found to have a urinary tract infection with elevated lactic acid and was started on IV fluids and antibiotics. Her troponin was found to be slightly elevated. She was admitted to the selective care unit. Upon admission her antibiotics were maintained. She was found to have a candidal infection of the left abdominal fold and nystatin was ordered. She had a rapid improvement in her WBC count. She only wanted to be seen for 1 thing and did not want a more thorough investigation, she did not want to discuss code status. Patient seen and examined at bedside. She is extremely hard of hearing conversation is difficult, everything is communicated in writing. No nausea, no vomiting, diarrhea is getting better, no sob. Objective - Vital Signs Vital signs: Vital Signs Temp 98.3 F 02/17/17 04:00 Pulse 103 H 02/17/17 08:00 Resp 18 02/17/17 08:00 BP 137/78 02/17/17 08:00 Pulse Ox 99 02/17/17 08:00 Intake & Output 02/16/17 02/17/17 02/17/17 18:59 06:59 18:59 Intake Total 772 1200 Output Total 500 Balance 772 700 Weight 71.5 kg 72.5 kg 72.5 kg Intake: IV 1200 Sodium Chloride 0.45% 1, 1200 000 ml @ 75 mls/hr IV . [id number] [facility] Rx#:[id number] Oral 772 Output: Urine 500 Other: Voiding Method Bedpan Bedpan Bedpan Incontinent Incontinent # Voids 3 1 - Exam General: non toxic, no distress, appears at stated age Derm: rash left groin with erythema, excoriation and cream discharge. Head: atraumatic, normocephalic, symmetric Eyes: EOMI, no lid lag, anicteric sclera ENT: [place] [facility], no post nasal drip, no thrush Mouth: no lip lesion, dry membranes moist Cardiovascular: S1S2 reg, no murmur, positive posterior tibial pulse bilateral, Lungs: CTA bilateral, no rhonchi, no rales , no accessory muscle use Abdominal: soft, nontender to palpation, no guarding, no appreciable organomegaly Ext: no gross muscle atrophy, no edema, no contractures Neuro: CN II-XI grossly intact, no focal neuro deficits Psych: Alert, oriented, appropriate affect - Labs CBC & Chem 7: 02/17/17 06:02 02/17/17 06:02 Labs: Abnormal Lab Results - Last 24 Hours (Table) 02/17/17 02/17/17 Range/Units 06:02 06:02 MCHC 30.7 L (31.0-37.0) g/dL RDW 16.6 H (11.5-15.5) % Potassium 3.3 L (3.5-5.1) mmol/L Chloride 108 H (98-107) mmol/L BUN 52 H (7-17) mg/dL Creatinine 2.00 H (0.52-1.04) mg/dL Total Protein 4.9 L (6.3-8.2) g/dL Albumin 2.5 L (3.5-5.0) g/dL Microbiology - Last 24 Hours (Table) 02/16/17 13:00 Urine Culture - Preliminary Urine,Voided Assessment and Plan Plan: #UTI, present on admission, not related to Urban catheter -Continue with Rocephin -Await blood and urine cultures -IV fluids #Niya intertrigo - Nystatin powder #Acute kidney injury with probable baseline chronic kidney disease -Avoid nephrotoxic agents -Related to dehydration -IV fluids -Follow basic metabolic profile, following with Dr. Can has CKD Stage IV per daughter #Elevated troponin -Secondary to acute kidney injury, flat, no EKG changes -Check echocardiogram 02/18, if normal no additional investigation needed #Hypokalemia -Replace and recheck #Fall -PT/OT evaluation, may need placement on discharge and social work is consulted #Possible dementia -Safe and supportive environment Resolved: Elevated lactic acid Hypercalcemia Transfer to medical floor DVT prophylaxis: Heparin Discussed with: Patient, nursing, Anticipated discharge: 48-[address]: senior living facility A total of 45 minutes was spent on the care of this complex patient more than 50 % of the time was spent in counseling and care coordination.
[2017-02-17] MEDS: ALPRAZolam 0.5 MG TAB PO SCH ×3 (10:41→21:56)
[2017-02-17] MEDS: FAMOTIDINE 20 MG TAB PO SCH (10:42)
[2017-02-17] MEDS: DICYCLOMINE 10 MG CAP PO SCH ×4 (10:42→21:56)
[2017-02-17] MEDS: ALLOPURINOL 300 MG TAB PO SCH (10:42)
[2017-02-17] MEDS: HEPARIN SODIUM,PORCINE 5,000 UNIT/ML 1 ML VIAL SQ SCH ×2 (10:42→21:56)
[2017-02-17] MEDS: LORATADINE 10 MG TAB PO SCH (10:42)
[2017-02-17] MEDS: POTASSIUM CHLORIDE ER 10 MEQ TAB.ER.PRT PO SCH (10:43)
[2017-02-17] MEDS: FLUTICASONE 50MCG/SPRAY NASAL 16GM EA NOSTRIL SCH (10:44)
[2017-02-17] MEDS: NYSTATIN 100,000 UNIT/GM POWD 15 GM TOPICAL SCH ×2 (10:45→21:56)
[2017-02-18] MEDS: LEVOTHYROXINE 25 MCG TAB PO SCH (06:58)
[2017-02-18 07:08] LABS: CHCM 30.3; HCT 35.4 % (34.0-46.0); HDW 2.52; HGB 11.3 gm/dL (11.4-16.0); Hypochromasia Moderate; MCH 28.6 pg (25.0-35.0); MCHC 31.8 g/dL (31.0-37.0); MCV 89.8 fL (80.0-100.0); Mean Platelet Volume 7.6; RBC 3.94 m/uL (3.80-5.40); RDW 15.8 % (11.5-15.5); WBC 8.2 k/uL (3.8-10.6)
[2017-02-18 07:29] LABS: Calcium 9.8 mg/dL (8.4-10.2); Magnesium 1.6 mg/dL (1.6-2.3); Potassium 4.6 mmol/L (3.5-5.1); Total Bilirubin 0.3 mg/dL (0.2-1.3); Total Protein 5.2 g/dL (6.3-8.2)
[2017-02-18] MEDS: POTASSIUM CHLORIDE ER 10 MEQ TAB.ER.PRT PO SCH (08:49)
[2017-02-18] MEDS: DICYCLOMINE 10 MG CAP PO SCH ×4 (08:49→21:06)
[2017-02-18] MEDS: LORATADINE 10 MG TAB PO SCH (08:49)
[2017-02-18] MEDS: HEPARIN SODIUM,PORCINE 5,000 UNIT/ML 1 ML VIAL SQ SCH ×2 (08:49→21:05)
[2017-02-18] MEDS: FAMOTIDINE 20 MG TAB PO SCH (08:49)
[2017-02-18] MEDS: ALLOPURINOL 300 MG TAB PO SCH (08:49)
[2017-02-18] MEDS: FLUTICASONE 50MCG/SPRAY NASAL 16GM EA NOSTRIL SCH (08:49)
[2017-02-18] MEDS: NYSTATIN 100,000 UNIT/GM POWD 15 GM TOPICAL SCH ×2 (08:49→21:06)
[2017-02-18] MEDS: ALPRAZolam 0.5 MG TAB PO SCH ×3 (08:53→23:17)
--- NOTE | 2017-02-18 18:08 | P.PN ---
Subjective Principal diagnosis: patient is seen and examined , in follow up for UTI 81 year old female with history of dementia, CHF, HTN presented after being found at home covered in urine and feces on the floor. She was found to have urinary tract infection and started on empiric antibiotics. patient is hard of hearing and communication carried on with writing. she denies any new complaint, doing well, denies any chest pain or trouble breathing. patient requests to be sent home. . Objective - Vital Signs Vital signs: Vital Signs Temp 97.4 F L 02/18/17 15:00 Pulse 101 H 02/18/17 16:00 Resp 16 02/18/17 16:00 BP 154/94 02/18/17 15:00 Pulse Ox 97 02/18/17 15:00 Intake & Output 02/17/17 02/18/17 02/18/17 18:59 06:59 18:59 Intake Total 240 840 710 Output Total 500 Balance 240 840 210 Weight 72.5 kg 74.5 kg 74.5 kg Intake: Intake, IV Titration 50 100 Amount cefTRIAXone 1,000 mg In 50 100 Sodium Chloride 0.9% 50 ml @ 100 mls/hr IVPB Q24H [facility] Rx#:[id number] Oral 240 790 610 Output: Urine 500 Other: Voiding Method Bedpan Bedpan Incontinent Incontinent Incontinent # Voids 1 2 3 - Exam Constitutional: vital signs stable, Not in acute distress, pleasant, conversant Lungs: Clear to auscultation bilaterally, clear to percussion, normal respiratory effort no use of accessory muscles Cardiovascular: Regular rate and rhythm, no murmurs, no gallops, no rubs, no peripheral edema Gastrointestinal: Soft, no tenderness to palpation, no palpable hepatosplenomegally, bowel sounds positive Extremities: No digital cyanosis or clubbing, peripheral pulses palpable and equal over bilateral radial arteries and dorsalis pedis artery, no calf muscle tenderness Psych: Alert , deaf - Labs CBC & Chem 7: 02/18/17 06:28 02/18/17 06:28 Labs: Abnormal Lab Results - Last 24 Hours (Table) 02/18/17 02/18/17 Range/Units 06:28 06:28 Hgb 11.3 L (11.4-16.0) gm/dL RDW 15.8 H (11.5-15.5) % Chloride 111 H (98-107) mmol/L BUN 42 H (7-17) mg/dL Creatinine 2.01 H (0.52-1.04) mg/dL Total Protein 5.2 L (6.3-8.2) g/dL Albumin 2.7 L (3.5-5.0) g/dL Microbiology - Last 24 Hours (Table) 02/16/17 12:34 Blood Culture - Preliminary Blood No Growth after 48 hours 02/16/17 13:00 Urine Culture - Final Urine,Voided Assessment and Plan (1) UTI (urinary tract infection) Status: Acute (2) Dementia Status: Acute (3) AVERY (acute kidney injury) Status: Acute (4) Elevated troponin Status: Acute (5) Fall Status: Acute Plan: patient with UTI present with admission , no parmar catheter cultures negative to date on rocephine , will discontinue, patient received 3 days elevated trops most likely 2/2 CKD and AVERY denies any chest pain or trouble breathing AVERY on CKD avoid nephrotoxic meds patient lives alone and was found on the floor covered with feces and urine, dehydrated dementia, frailty and advanced age patient evaluated by PT/OT I recommend placement, foster care social worker assisting in that matter, await placement for discharge DVT PPX on heparin sc continue with supportive care
[2017-02-19] MEDS: LEVOTHYROXINE 25 MCG TAB PO SCH (07:04)
[2017-02-19 08:26] LABS: Basophils % (A) 0 %; CH 26.8; CHCM 30.6; Eosinophils # (A) 0.3 k/uL (0-0.7); Eosinophils % (A) 4 %; HCT 38.1 % (34.0-46.0); HDW 2.58; HGB 12.1 gm/dL (11.4-16.0); Hypochromasia Moderate; Luc # (Auto) 0.15; Luc % (Auto) 2; Lymphocytes % (A) 12 %; MCH 28.1 pg (25.0-35.0); MCHC 31.9 g/dL (31.0-37.0); MCV 88.2 fL (80.0-100.0); Mean Platelet Volume 7.3; Monocytes # (A) 0.4 k/uL (0-1.0); Monocytes % (A) 4 %; Neutrophils # (A) 6.3 k/uL (1.3-7.7); Neutrophils % (A) 78 %; RBC 4.32 m/uL (3.80-5.40); RDW 15.9 % (11.5-15.5); WBC 8.1 k/uL (3.8-10.6); WBC (Perox) 8.58
[2017-02-19] MEDS: ALPRAZolam 0.5 MG TAB PO SCH ×3 (08:26→23:33)
[2017-02-19] MEDS: ALLOPURINOL 300 MG TAB PO SCH (08:27)
[2017-02-19] MEDS: FAMOTIDINE 20 MG TAB PO SCH (08:27)
[2017-02-19] MEDS: DICYCLOMINE 10 MG CAP PO SCH ×3 (08:27→23:32)
[2017-02-19] MEDS: POTASSIUM CHLORIDE ER 10 MEQ TAB.ER.PRT PO SCH (08:27)
[2017-02-19 08:29] LABS: Calcium 9.6 mg/dL (8.4-10.2); Magnesium 1.8 mg/dL (1.6-2.3); Total Bilirubin 0.6 mg/dL (0.2-1.3); Total Protein 5.7 g/dL (6.3-8.2)
[2017-02-19] MEDS: LORATADINE 10 MG TAB PO SCH (08:29)
[2017-02-19] MEDS: FLUTICASONE 50MCG/SPRAY NASAL 16GM EA NOSTRIL SCH (08:29)
[2017-02-19] MEDS: NYSTATIN 100,000 UNIT/GM POWD 15 GM TOPICAL SCH ×2 (08:31→23:34)
[2017-02-19] MEDS: HEPARIN SODIUM,PORCINE 5,000 UNIT/ML 1 ML VIAL SQ SCH ×2 (08:32→23:32)
[2017-02-19 08:33] LABS: Potassium 4.9 mmol/L (3.5-5.1)
--- NOTE | 2017-02-19 10:32 | P.CRDCN ---
History of Present Illness History of present illness: Patient interviewed. She is deaf. I had to write out my questions. She denied chest discomfort shortness of breath dizziness. She remains in atrial flutter with RVR vitals stable high risk for anticoagulation she had recent falls did discussed with the hospitalist. Suggest oral beta blockers, transferred to 6 E. for rate control final decision regarding anticoagulation per admitting physicians, TSH level check. Please see full dictation by nurse practitioner Past Medical History Past Medical History: Dementia History of Any Multi-Drug Resistant Organisms: None Reported Past Surgical History: No Surgical Hx Reported Additional Past Surgical History / Comment(s): pt states hse has a lot of problems with her ears, nose and throat. Past Anesthesia/Blood Transfusion Reactions: No Reported Reaction Past Psychological History: No Psychological Hx Reported Smoking Status: Never smoker Past Alcohol Use History: None Reported Past Drug Use History: None Reported - Past Family History Father Family Medical History: No Reported History Mother Family Medical History: No Reported History, Osteoarthritis (OA), Rheumatoid Arthritis (RA) Additional Family Medical History / Comment(s): kidney problems, specific type unknown Medications and Allergies Home Medications Medication Instructions Recorded Confirmed Type Loratadine [Claritin] 10 mg PO DAILY 02/15/17 02/15/17 History ALPRAZolam [Xanax] 0.5 mg PO TID 02/16/17 02/16/17 History Albuterol Inhaler [Ventolin Hfa 2 puff INHALATION RT-Q4H PRN 02/16/17 02/16/17 History Inhaler] Allopurinol [Zyloprim] 300 mg PO DAILY 02/16/17 02/16/17 History Dicyclomine HCl 10 mg PO QID 02/16/17 02/16/17 History Fluticasone Nasal [place] [Flonase 1 spray EA NOSTRIL DAILY 02/16/17 02/16/17 History Nasal [place]] Hydrocodone/Acetaminophen [Alma 1 tab PO Q6HR PRN 02/16/17 02/16/17 History 5-325] Levothyroxine Sodium [Synthroid] 25 mcg PO DAILY 02/16/17 02/16/17 History Potassium Chloride [K-Tab ER] 10 meq PO DAILY 02/16/17 02/16/17 History Ranitidine HCl [Zantac] 150 mg PO BID 02/16/17 02/16/17 History Allergies Allergy/AdvReac Type Severity Reaction Status Date / Time No Known Allergies Allergy Verified 02/15/17 20:23 Physical Exam Vitals: Vital Signs Temp Pulse Resp BP Pulse Ox 02/19/17 08:00 114 H 02/19/17 07:00 97.8 F 114 H 20 146/72 92 L 02/18/17 21:52 97.2 F L 109 H 20 156/76 96 02/18/17 16:00 101 H 16 02/18/17 15:00 97.4 F L 101 H 16 154/94 97 Intake and Output 02/18/17 02/19/17 02/19/17 22:59 06:59 14:59 Intake Total 50 Output Total 500 Balance -500 50 Intake: Intake, IV Titration 50 Amount cefTRIAXone 1,000 mg In 50 Sodium Chloride 0.9% 50 ml @ 100 mls/hr IVPB Q24H [facility] Rx#:[id number] Output: Urine 500 Other: Voiding Method Incontinent Incontinent Diaper Incontinent # Voids 1 1 Weight 74.5 kg 76 kg Results 02/19/17 07:35 02/19/17 07:35 Cardiac Enzymes 02/19/17 Range/Units 07:35 AST 29 (14-36) U/L CBC 02/19/17 Range/Units 07:35 WBC 8.1 (3.8-10.6) k/uL RBC 4.32 (3.80-5.40) m/uL Hgb 12.1 (11.4-16.0) gm/dL Hct 38.1 (34.0-46.0) % Plt Count 209 (150-450) k/uL Comprehensive Metabolic Panel 02/19/17 Range/Units 07:35 Sodium 137 (137-145) mmol/L Potassium 4.9 (3.5-5.1) mmol/L Chloride 107 (98-107) mmol/L Carbon Dioxide 19 L (22-30) mmol/L BUN 34 H (7-17) mg/dL Creatinine 1.75 H (0.52-1.04) mg/dL Glucose 79 (74-99) mg/dL Calcium 9.6 (8.4-10.2) mg/dL AST 29 (14-36) U/L ALT 24 (9-52) U/L Alkaline Phosphatase 68 (38-126) U/L Total Protein 5.7 L (6.3-8.2) g/dL Albumin 2.8 L (3.5-5.0) g/dL Current Medications Generic Name Dose Route Start Last Admin Trade Name Freq PRN Reason Stop Dose Admin Acetaminophen 650 mg 02/16/17 00:02 02/17/17 17:45 Tylenol Tab PO 650 mg Q6HR PRN Administration Mild Pain or Fever > 100.5 Hydrocodone Bitart/Acetaminophen 1 each 02/16/17 13:31 02/17/17 14:36 Alma 5-325 PO 1 each Q6HR PRN Administration Moderate Pain Albuterol Sulfate 2.5 mg 02/16/17 13:31 Ventolin Nebulized INHALATION RT-Q4H PRN Shortness Of Breath Allopurinol 300 mg 02/17/17 09:00 02/19/17 08:27 Zyloprim PO 300 mg DAILY DEEPTI Administration Alprazolam 0.5 mg 02/16/17 16:00 02/19/17 08:26 Xanax PO 0.5 mg TID DEEPTI Administration Dicyclomine HCl 10 mg 02/16/17 18:00 02/19/17 08:27 Bentyl PO 10 mg QID DEEPTI Administration Famotidine 20 mg 02/17/17 09:00 02/19/17 08:27 Pepcid PO 20 mg DAILY DEEPTI Administration Fluticasone Propionate 1 spray 02/17/17 09:00 02/19/17 08:29 Flonase Nasal [place] EA NOSTRIL 1 spray DAILY DEEPTI Administration Heparin Sodium (Porcine) 5,000 unit 02/16/17 09:00 02/19/17 08:32 Heparin SQ 5,000 unit Q12HR DEEPTI Administration Ceftriaxone Sodium 1,000 mg/ 50 mls @ 100 mls/hr 02/16/17 22:00 02/18/17 21: 06 Sodium Chloride IVPB 100 mls/hr Q24H DEEPTI Administration Levothyroxine Sodium 25 mcg 02/17/17 06:30 02/19/17 07:04 Synthroid PO 25 mcg DAILY@0630 DEEPTI Administration Loratadine 10 mg 02/16/17 13:45 02/19/17 08:29 Claritin PO 10 mg DAILY DEEPTI Administration Melatonin 3 mg 02/16/17 00:02 Melatonin PO HS PRN Insomnia Metoprolol Tartrate 50 mg 02/19/17 10:15 Lopressor PO BID DEEPTI Naloxone HCl 0.2 mg 02/15/17 22:34 Narcan IV Q2M PRN Opioid Reversal Nystatin 1 applic 02/16/17 21:00 02/19/17 08:31 Mycostatin Powder TOPICAL 1 applic BID DEEPTI Administration Ondansetron HCl 4 mg 02/16/17 11:34 Zofran IVP Q6HR PRN Nausea And Vomiting Potassium Chloride 10 meq 02/17/17 09:00 02/19/17 08:27 K-Dur 10 PO 10 meq DAILY DEEPTI Administration Intake and Output 02/18/17 02/19/17 02/19/17 22:59 06:59 14:59 Intake Total 50 Output Total 500 Balance -500 50 Intake: Intake, IV Titration 50 Amount cefTRIAXone 1,000 mg In 50 Sodium Chloride 0.9% 50 ml @ 100 mls/hr IVPB Q24H [facility] Rx#:[id number] Output: Urine 500 Other: Voiding Method Incontinent Incontinent Diaper Incontinent # Voids 1 1 Weight 74.5 kg 76 kg 02/19/17 07:35 02/19/17 07:35
[2017-02-19] MEDS: METOPROLOL TARTRATE 50 MG TAB PO SCH ×2 (10:49→23:35)
--- NOTE | 2017-02-19 12:15 | P.CRDCN ---
History of Present Illness Consult date: 02/19/17 History of present illness: This is a 81-year-old pleasant female. Patient presented to the hospital on the after her daughter found her laying in the living room. They last saw her 2 days prior. She was found saturated in urine and feces and unable to get up. We have been asked to see this patient in consultation because of atrial flutter with a rapid ventricular response noticed this morning on the electronic device monitor. Patient is an extremely poor historian and deaf. Communication is done through writing. Review of the previous notes indicate she has a past medical history significant for kidney disease and dementia. She is currently being treated for urinary tract infection leading to sepsis and was found to have mildly elevated troponins. His troponin values have remained flat with no acute ST or T wave abnormalities noted on admission EKG. This is most likely secondary to chronic kidney disease not indicative of an acute coronary event. There are no previous records within the last Hospital system to evaluate nor is this patient ever been seen at our office. She denies chest pain, shortness of breath, palpitations or dizziness. She is seen sitting up in bed reading a magazine in no acute distress. EKG done this morning shows atrial flutter with rapid ventricular rate. Review of Systems Extensive review of systems performed, negative except mentioned in HPI. Past Medical History Past Medical History: Dementia History of Any Multi-Drug Resistant Organisms: None Reported Past Surgical History: No Surgical Hx Reported Additional Past Surgical History / Comment(s): pt states hse has a lot of problems with her ears, nose and throat. Past Anesthesia/Blood Transfusion Reactions: No Reported Reaction Past Psychological History: No Psychological Hx Reported Smoking Status: Never smoker Past Alcohol Use History: None Reported Past Drug Use History: None Reported - Past Family History Father Family Medical History: No Reported History Mother Family Medical History: No Reported History, Osteoarthritis (OA), Rheumatoid Arthritis (RA) Additional Family Medical History / Comment(s): kidney problems, specific type unknown Medications and Allergies Home Medications Medication Instructions Recorded Confirmed Type Loratadine [Claritin] 10 mg PO DAILY 02/15/17 02/15/17 History ALPRAZolam [Xanax] 0.5 mg PO TID 02/16/17 02/16/17 History Albuterol Inhaler [Ventolin Hfa 2 puff INHALATION RT-Q4H PRN 02/16/17 02/16/17 History Inhaler] Allopurinol [Zyloprim] 300 mg PO DAILY 02/16/17 02/16/17 History Dicyclomine HCl 10 mg PO QID 02/16/17 02/16/17 History Fluticasone Nasal Rush [Flonase 1 spray EA NOSTRIL DAILY 02/16/17 02/16/17 History Nasal Rush] Hydrocodone/Acetaminophen [[place] 1 tab PO Q6HR PRN 02/16/17 02/16/17 History 5-325] Levothyroxine Sodium [Synthroid] 25 mcg PO DAILY 02/16/17 02/16/17 History Potassium Chloride [K-Tab ER] 10 meq PO DAILY 02/16/17 02/16/17 History Ranitidine HCl [Zantac] 150 mg PO BID 02/16/17 02/16/17 History Allergies Allergy/AdvReac Type Severity Reaction Status Date / Time No Known Allergies Allergy Verified 02/15/17 20:23 Physical Exam Vitals: Vital Signs Temp Pulse Resp BP Pulse Ox 02/19/17 08:00 114 H 02/19/17 07:00 97.8 F 114 H 20 146/72 92 L 02/18/17 21:52 97.2 F L 109 H 20 156/76 96 02/18/17 16:00 101 H 16 02/18/17 15:00 97.4 F L 101 H 16 154/94 97 Intake and Output 02/18/17 02/19/17 02/19/17 22:59 06:59 14:59 Intake Total 50 Output Total 500 Balance -500 50 Intake: Intake, IV Titration 50 Amount cefTRIAXone 1,000 mg In 50 Sodium Chloride 0.9% 50 ml @ 100 mls/hr IVPB Q24H [facility] Rx#:[id number] Output: Urine 500 Other: Voiding Method Incontinent Incontinent Diaper Incontinent # Voids 1 1 Weight 74.5 kg 76 kg GENERAL: This is a 81-year-old female in no apparent distress at the time of my examination. HEENT: Head is atraumatic, normocephalic. Right eye cloudy. Sclerae anicteric. Mucous membranes of the mouth are moist. Neck is supple. There is no jugular venous distention. No carotid bruit is heard. LUNGS: Clear to auscultation no wheezes, rales or rhonchi. No chest wall tenderness is noted on palpation or with deep breathing. HEART: Regular rate. Tachy rhythm without murmurs, rubs or gallops. S1 and S2 heard. ABDOMEN: Soft, nontender. Bowel sounds are heard. No organomegaly noted. EXTREMITIES: 2+ peripheral pulses with no evidence of peripheral edema and no calf tenderness noted. NEUROLOGIC: Patient is awake, alert and oriented x3. Results 02/19/17 07:35 02/19/17 07:35 Cardiac Enzymes 02/19/17 Range/Units 07:35 AST 29 (14-36) U/L CBC 02/19/17 Range/Units 07:35 WBC 8.1 (3.8-10.6) k/uL RBC 4.32 (3.80-5.40) m/uL Hgb 12.1 (11.4-16.0) gm/dL Hct 38.1 (34.0-46.0) % Plt Count 209 (150-450) k/uL Comprehensive Metabolic Panel 02/19/17 Range/Units 07:35 Sodium 137 (137-145) mmol/L Potassium 4.9 (3.5-5.1) mmol/L Chloride 107 (98-107) mmol/L Carbon Dioxide 19 L (22-30) mmol/L BUN 34 H (7-17) mg/dL Creatinine 1.75 H (0.52-1.04) mg/dL Glucose 79 (74-99) mg/dL Calcium 9.6 (8.4-10.2) mg/dL AST 29 (14-36) U/L ALT 24 (9-52) U/L Alkaline Phosphatase 68 (38-126) U/L Total Protein 5.7 L (6.3-8.2) g/dL Albumin 2.8 L (3.5-5.0) g/dL Current Medications Generic Name Dose Route Start Last Admin Trade Name Freq PRN Reason Stop Dose Admin Acetaminophen 650 mg 02/16/17 00:02 02/17/17 17:45 Tylenol Tab PO 650 mg Q6HR PRN Administration Mild Pain or Fever > 100.5 Hydrocodone Bitart/Acetaminophen 1 each 02/16/17 13:31 02/17/17 14:36 [place] 5-325 PO 1 each Q6HR PRN Administration Moderate Pain Albuterol Sulfate 2.5 mg 02/16/17 13:31 Ventolin Nebulized INHALATION RT-Q4H PRN Shortness Of Breath Allopurinol 300 mg 02/17/17 09:00 02/19/17 08:27 Zyloprim PO 300 mg DAILY [facility]EE[facility] Administration Alprazolam 0.5 mg 02/16/17 16:00 02/19/17 08:26 Xanax PO 0.5 mg TID DEEPTI Administration Dicyclomine HCl 10 mg 02/16/17 18:00 02/19/17 08:27 Bentyl PO 10 mg QID DEEPTI Administration Famotidine 20 mg 02/17/17 09:00 02/19/17 08:27 Pepcid PO 20 mg DAILY DEEPTI Administration Fluticasone Propionate 1 spray 02/17/17 09:00 02/19/17 08:29 Flonase Nasal Rush EA NOSTRIL 1 spray DAILY DEEPTI Administration Heparin Sodium (Porcine) 5,000 unit 02/16/17 09:00 02/19/17 08:32 Heparin SQ 5,000 unit Q12HR [facility] Administration Ceftriaxone Sodium 1,000 mg/ 50 mls @ 100 mls/hr 02/16/17 22:00 02/18/17 21: 06 Sodium Chloride IVPB 100 mls/hr Q24H [facility]EE[facility] Administration Levothyroxine Sodium 25 mcg 02/17/17 06:30 02/19/17 07:04 Synthroid PO 25 mcg DAILY@0630 DEEPTI Administration Loratadine 10 mg 02/16/17 13:45 02/19/17 08:29 Claritin PO 10 mg DAILY DEEPTI Administration Melatonin 3 mg 02/16/17 00:02 Melatonin PO HS PRN Insomnia Metoprolol Tartrate 50 mg 02/19/17 10:15 02/19/17 10:49 Lopressor PO 50 mg BID DEEPTI Administration Naloxone HCl 0.2 mg 02/15/17 22:34 Narcan IV Q2M PRN Opioid Reversal Nystatin 1 applic 02/16/17 21:00 02/19/17 08:31 Mycostatin Powder TOPICAL 1 applic BID DEEPTI Administration Ondansetron HCl 4 mg 02/16/17 11:34 Zofran IVP Q6HR PRN Nausea And Vomiting Potassium Chloride 10 meq 02/17/17 09:00 02/19/17 08:27 K-Dur 10 PO 10 meq DAILY DEEPTI Administration Intake and Output 02/18/17 02/19/17 02/19/17 22:59 06:59 14:59 Intake Total 50 Output Total 500 Balance -500 50 Intake: Intake, IV Titration 50 Amount cefTRIAXone 1,000 mg In 50 Sodium Chloride 0.9% 50 ml @ 100 mls/hr IVPB Q24H [facility] Rx#:[id number] Output: Urine 500 Other: Voiding Method Incontinent Incontinent Diaper Incontinent # Voids 1 1 Weight 74.5 kg 76 kg 02/19/17 07:35 02/19/17 07:35 EKG Interpretations (text) EKG indicates atrial flutter with a rapid ventricular response. Assessment and Plan Plan: ASSESSMENT 1. New-onset atrial flutter with a rapid ventricular response 2. Sepsis secondary to urinary tract infection 3. Elevated troponin 4. Chronic kidney disease PLAN Obtain 2-D echocardiogram to assess left ventricular function. TSH level. Begin metoprolol 50 mg by mouth twice a day. Long-term anticoagulation will not be initiated at this time due to patient's history of falls. She should be transferred to [facility] care for closer cardiac monitoring. Thank you kindly for this consultation. We will follow closely with this patient and further recommendations will be based upon clinical course. Nurse Practitioner note has been reviewed, I agree with a documented findings and plan of care. Patient was seen and examined.
--- NOTE | 2017-02-19 12:48 | P.PN ---
Subjective Principal diagnosis: patient is seen and examined in follow up for UTI, new onset atrial flutter 81 year old female with history of dementia, CHF, HTN presented after being found at home covered in urine and feces on the floor. Patient lives alone in her small apartment and has two daughters that visit couple times a week. She was last seen normal about 2 days prior to being found down at home soiled with her own urine and feces. Patient does remember the event, and reports that she remained down as no one was visiting her. She was found to have urinary tract infection and started on empiric antibiotics. This morning she was found to be in atrial flutter with rapid ventricular response, she reported some associated chest heaviness but no trouble breathing at that time, at the time of my interview , she denies any chest pain or trouble breathing at this time. patient is hard of hearing and communication carried on with writing. Despite my counseling, patient requests to be sent home and reports that she will hire aids to help her out. demand planning manager discussed with the daughter our recommendations to be placed at rehab and that possibly patient would benefit from permanent placement, she seems to be in agreement but will discuss with the rest of the family Objective - Vital Signs Vital signs: Vital Signs Temp 97.8 F 02/19/17 07:00 Pulse 114 H 02/19/17 08:00 Resp 20 02/19/17 07:00 BP 146/72 02/19/17 07:00 Pulse Ox 92 L 02/19/17 07:00 Intake & Output 02/18/17 02/19/17 02/19/17 18:59 06:59 18:59 Intake Total 710 50 Output Total 500 Balance 210 50 Weight 74.5 kg 76 kg Intake: Intake, IV Titration 100 50 Amount cefTRIAXone 1,000 mg In 100 50 Sodium Chloride 0.9% 50 ml @ 100 mls/hr IVPB Q24H [facility] Rx#:[id number] Oral 610 Output: Urine 500 Other: Voiding Method Incontinent Incontinent Diaper Incontinent # Voids 3 1 - Exam Constitutional: Not in acute distress, pleasant, conversant Lungs: Clear to auscultation bilaterally, clear to percussion, normal respiratory effort no use of accessory muscles Cardiovascular: Regular rate and rhythm, no murmurs, no gallops, no rubs, no peripheral edema Gastrointestinal: Soft, no tenderness to palpation, no palpable hepatosplenomegally, bowel sounds positive Extremities: No digital cyanosis or clubbing, peripheral pulses palpable and equal over bilateral radial arteries and dorsalis pedis artery, no calf muscle tenderness Psych: Alert , deaf - Labs CBC & Chem 7: 02/19/17 07:35 02/19/17 07:35 Labs: Abnormal Lab Results - Last 24 Hours (Table) 02/19/17 02/19/17 Range/Units 07:35 07:35 RDW 15.9 H (11.5-15.5) % Carbon Dioxide 19 L (22-30) mmol/L BUN 34 H (7-17) mg/dL Creatinine 1.75 H (0.52-1.04) mg/dL Total Protein 5.7 L (6.3-8.2) g/dL Albumin 2.8 L (3.5-5.0) g/dL Microbiology - Last 24 Hours (Table) 02/16/17 12:34 Blood Culture - Preliminary Blood No Growth after 48 hours Assessment and Plan (1) Atrial flutter with rapid ventricular response Narrative/Plan: new onset check TSH check 2 D echo denies any chest pain or trouble breathing cardiology consulted started on metoprolol 50 mg BID not a good candidate for oral anticoagulation due to fall risk and advanced age check electrolytes Status: Acute (2) UTI (urinary tract infection) Narrative/Plan: currently afebrile , urine cultures negative , will discontinue antibiotics Status: Acute (3) Dementia Status: Chronic (4) AVERY (acute kidney injury) Narrative/Plan: with history of CKD prerenal ATN 2/2 dehydration improving avoid nephrotoxic meds monitor urine output Status: Acute (5) Elevated troponin Narrative/Plan: stable , no chest pain , no EKG changes cardiology following this was thougth to be most likely 2/2 CKD Status: Acute (6) Fall Narrative/Plan: PT/OT recommendation for placement at rehab , and possibly to consider permanent placement Status: Acute Plan: ocial worker assisting with placement for discharge DVT PPX on heparin sc continue with supportive care patient transferred to [facility] care, for close cardiac monitoring I anticipate patient to remain hospitalized for another 48 hours to get all workup done and heart rate under control
--- NOTE | 2017-02-19 18:35 | ECHOF ---
Referral Reason:new arrhythmia MEASUREMENTS -------- HEIGHT: 160.0 cm WEIGHT: 75.8 kg BP: 136/74 RVIDd: 2.7 cm (< 3.3) IVSd: 1.2 cm (0.6 - 1.1) LVIDd: 3.4 cm (3.9 - 5.3) LVPWd: 1.3 cm (0.6 - 1.1) IVSs: 1.6 cm LVIDs: 2.2 cm LVPWs: 1.4 cm LA Diam: 2.9 cm (2.7 - 3.8) LAESV Index (A-L): 33.69 ml/m Ao Diam: 3.0 cm (2.0 - 3.7) AV Cusp: 1.8 cm (1.5 - 2.6) MV EXCURSION: 13.970 mm (> 18.000) MV EF SLOPE: 25 mm/s (70 - 150) EPSS: 0.4 cm MV E Dilan: 1.00 m/s MV DecT: 246 ms MV A Dilan: 1.20 m/s MV E/A Ratio: 0.84 RAP: 5.00 mmHg RVSP: 21.56 mmHg FINDINGS -------- Sinus rhythm. This was a technically adequate study. The left ventricular size is normal. There is mild concentric left ventricular hypertrophy. Overall left ventricular systolic function is normal with, an EF between 60 - 65 %. The right ventricle is normal in size. LA is midly dilated 29-33ml/m2. The right atrium is normal in size. There is mild aortic valve sclerosis. Moderate mitral annular calcification present. Mild tricuspid regurgitation present. Right ventricular systolic pressure is normal at < 35 mmHg. Trace/mild (physiologic) pulmonic regurgitation. The aortic root size is normal. The inferior vena cava is mildly dilated. There is no pericardial effusion. CONCLUSIONS -------- 1. Sinus rhythm. 2. Moderate mitral annular calcification present. 3. Mild tricuspid regurgitation present. 4. Right ventricular systolic pressure is normal at < 35 mmHg. 5. Trace/mild (physiologic) pulmonic regurgitation. 6. The aortic root size is normal. 7. The inferior vena cava is mildly dilated. 8. There is no pericardial effusion. 9. This was a technically adequate study. 10. The left ventricular size is normal. 11. There is mild concentric left ventricular hypertrophy. 12. Overall left ventricular systolic function is normal with, an EF between 60 - 65 %. 13. The right ventricle is normal in size. 14. LA is midly dilated 29-33ml/m2. 15. The right atrium is normal in size. 16. There is mild aortic valve sclerosis. INFANTRY ASSAULTMAN: Shasha Kuhn RDCS
[2017-02-20 06:34] LABS: Calcium 9.9 mg/dL (8.4-10.2); Magnesium 1.9 mg/dL (1.6-2.3); Potassium 4.9 mmol/L (3.5-5.1)
[2017-02-20] MEDS: DICYCLOMINE 10 MG CAP PO SCH ×5 (06:40→21:00)
[2017-02-20] MEDS: LEVOTHYROXINE 25 MCG TAB PO SCH (06:41)
[2017-02-20] MEDS: METOPROLOL TARTRATE 50 MG TAB PO SCH ×2 (08:38→21:01)
[2017-02-20] MEDS: FAMOTIDINE 20 MG TAB PO SCH (08:38)
[2017-02-20] MEDS: LORATADINE 10 MG TAB PO SCH (08:38)
[2017-02-20] MEDS: POTASSIUM CHLORIDE ER 10 MEQ TAB.ER.PRT PO SCH (08:38)
[2017-02-20] MEDS: FLUTICASONE 50MCG/SPRAY NASAL 16GM EA NOSTRIL SCH (08:38)
[2017-02-20] MEDS: HEPARIN SODIUM,PORCINE 5,000 UNIT/ML 1 ML VIAL SQ SCH ×2 (08:38→21:01)
[2017-02-20] MEDS: ALLOPURINOL 300 MG TAB PO SCH (08:38)
[2017-02-20] MEDS: ALPRAZolam 0.5 MG TAB PO SCH ×3 (08:38→21:00)
[2017-02-20] MEDS: NYSTATIN 100,000 UNIT/GM POWD 15 GM TOPICAL SCH ×2 (08:41→21:01)
--- NOTE | 2017-02-20 10:30 | P.DS ---
Providers Date of admission: 02/15/17 23:07 Expected date of discharge: 02/20/17 Attending physician: Serge Corbett MD Consults: 02/19/17 07:44 Consult Physician Urgent Consulting Provider: Peña Jane Consult Reason/Comments: new onset AFIB Do you want consulting provider notified?: Yes Primary care physician: Howard Banda - Discharge Diagnosis(es) (1) Atrial flutter with rapid ventricular response Current Visit: Yes Status: Acute (2) UTI (urinary tract infection) Current Visit: Yes Status: Suspected Priority: High (3) Dementia Current Visit: Yes Status: Chronic (4) AVERY (acute kidney injury) Current Visit: Yes Status: Acute Priority: High (5) Elevated troponin Current Visit: Yes Status: Acute Priority: High (6) Fall Current Visit: Yes Status: Acute Priority: High Hospital Course: 81 year old female with PMHx of dementia, Hypertension and diastolic CHF. patient presented to the hospital after being found down at home covered with urine and stool. She lives alone and her family checks on her every 2-3 days. she was last seen normal 2 days prior to this incident. Upon presentation to the hospital she was suspected to have a urinary tract infection and was started on ABx however, urine cultures turned out to be negative. She was also found to have acute kidney injury due to dehydration which has improved with rehydration. Elevated troponins which thought to be due to CKD, and was trending down, without any chest pain or trouble breathing. patient also developed new onset atrial flutter with rapid ventricular response cardiology evaluated the patient and she was transferred to critical care unit for close monitoring , electrolytes and TSH were unremarkable. 2 D echocardiogram was unremarkable with LVEF 60-65%. patient heart rate was controlled with metoprolol. Patient is not a good candidate for blood thinners and anticoagulation for stroke prophylaxis due to fall risk. patient was seen and examined, she is doing well, no new complaints, denies any dizziness, ,chest pain, or trouble breathing Constitutional: vital signs stable, Not in acute distress, pleasant, conversant Lungs: Clear to auscultation bilaterally, clear to percussion, normal respiratory effort Cardiovascular: Regular rate and rhythm, no murmurs, no gallops, no rubs, no peripheral edema Extremities: No digital cyanosis or clubbing, peripheral pulses palpable and equal over bilateral radial arteries , no calf muscle tenderness Psych: Alert, oriented to place, person and time patient would benefit from short term rehab, our recommendations is to consider 24/ supervision with permanent placement More than 35 minutes were spent discharging this patient, and more than 50% of the time was spent in counseling the patient and family and in coordinating care. The Plan - Discharge Summary New Discharge Prescriptions: New Acetaminophen Tab [Tylenol] 650 mg PO Q6HR PRN tab PRN Reason: Mild Pain Or Fever > 100.5 Famotidine [Pepcid] 20 mg PO DAILY tab Heparin Sodium,Porcine [Heparin Sodium] 5,000 unit SQ Q12HR vial Metoprolol Tartrate [Lopressor] 50 mg PO BID tab Nystatin 100,000 Unit/gm Powd [Mycostatin Powder] 1 applic TOPICAL BID dose Continue Potassium Chloride [K-Tab ER] 10 meq PO DAILY Levothyroxine Sodium [Synthroid] 25 mcg PO DAILY ALPRAZolam [Xanax] 0.5 mg PO TID Dicyclomine HCl 10 mg PO QID Allopurinol [Zyloprim] 300 mg PO DAILY Fluticasone Nasal [place] [Flonase Nasal [place]] 1 spray EA NOSTRIL DAILY Albuterol Inhaler [Ventolin Hfa Inhaler] 2 puff INHALATION RT-Q4H PRN PRN Reason: Shortness Of Breath Discontinued Loratadine [Claritin] 10 mg PO DAILY Hydrocodone/Acetaminophen [[place] 5-325] 1 tab PO Q6HR PRN PRN Reason: Pain Ranitidine HCl [Zantac] 150 mg PO BID Discharge Medication List ALPRAZolam [Xanax] 0.5 mg PO TID 02/16/17 [History] Albuterol Inhaler [Ventolin Hfa Inhaler] 2 puff INHALATION RT-Q4H PRN 02/16/17 [ History] Allopurinol [Zyloprim] 300 mg PO DAILY 02/16/17 [History] Dicyclomine HCl 10 mg PO QID 02/16/17 [History] Fluticasone Nasal [place] [Flonase Nasal [place]] 1 spray EA NOSTRIL DAILY 02/16/17 [History] Levothyroxine Sodium [Synthroid] 25 mcg PO DAILY 02/16/17 [History] Potassium Chloride [K-Tab ER] 10 meq PO DAILY 02/16/17 [History] Acetaminophen Tab [Tylenol] 650 mg PO Q6HR PRN tab 02/20/17 [Rx] Famotidine [Pepcid] 20 mg PO DAILY tab 02/20/17 [Rx] Heparin Sodium,Porcine [Heparin Sodium] 5,000 unit SQ Q12HR vial 02/20/17 [Rx] Metoprolol Tartrate [Lopressor] 50 mg PO BID tab 02/20/17 [Rx] Nystatin 100,000 Unit/gm Powd [Mycostatin Powder] 1 applic TOPICAL BID dose [Rx] Follow up Appointment(s)/Referral(s): Peña Jane MD [STAFF PHYSICIAN] - 1 Week Howard Banda DO [Primary Care Provider] - 1-2 days Patient Instructions/Handouts: Atrial Flutter (GEN), Urinary Tract Infection in Women (GEN), Fall Prevention for Older Adults (GEN), Fall Prevention (GEN) Activity/Diet/Wound Care/Special Instructions: resume pre admission diet activity as tolerated patient would benefit from permanent placement, as she is a fall risk and would be unsafe for her to live alone, she requires 24/ supervision Discharge Disposition: TRANSFER TO SNF/ECF
--- NOTE | 2017-02-20 12:01 | P.PN ---
Subjective Principal diagnosis: Atrial flutter This is an 81-year-old female who initially was brought to the hospital after being found on the floor by her daughter. Cardiology consultation was requested because of atrial flutter with rapid ventricular response. She was transferred to the telemetry unit, currently in normal sinus rhythm this morning. Patient does have history of dementia as well as the fact that she is deaf. We are currently treating her for urinary tract infection, she was also noted to have mildly abnormal troponins not consistent with acute coronary syndrome. Patient was recommended by the primary care doctor to go to extended care facility for a period of time however she requested to be sent home. Plan is for her to be discharged home today. Echocardiogram with Doppler study was performed which revealed normal left ventricular systolic function. Objective - Vital Signs Vital signs: Vital Signs Temp 96.7 F L 02/20/17 08:38 Pulse 102 H 02/20/17 08:38 Resp 18 02/20/17 08:38 BP 142/72 02/20/17 09:52 Pulse Ox 97 02/20/17 08:38 Intake & Output 02/19/17 02/20/17 02/20/17 18:59 06:59 18:59 Intake Total 354 200 118 Balance 354 200 118 Intake: Oral 354 200 118 Other: Voiding Method Diaper Diaper Diaper Incontinent Incontinent Incontinent # Voids 1 4 # Bowel Movements 1 - Exam PHYSICAL EXAMINATION: HEENT: Head is atraumatic, normocephalic. Right eye cloudy. Sclerae intact. Neck is supple. There is no elevated jugular venous pressure. HEART EXAMINATION: Heart S1, S2 normal. No murmur or gallop heard. CHEST EXAMINATION: Lungs are clear to auscultation and precussion. No chest wall tenderness is noted on palpation or with deep breathing. ABDOMEN: Soft, nontender. Bowel sounds are heard. No organomegaly noted. EXTREMITIES: 2+ peripheral pulses with no evidence of peripheral edema and no calf tenderness noted. NEUROLOGIC patient is awake, alert and oriented -3. . - Labs CBC & Chem 7: 02/19/17 07:35 02/20/17 05:49 Labs: Abnormal Lab Results - Last 24 Hours (Table) 02/20/17 Range/Units 05:49 Chloride 111 H (98-107) mmol/L BUN 35 H (7-17) mg/dL Creatinine 1.90 H (0.52-1.04) mg/dL Microbiology - Last 24 Hours (Table) 02/16/17 12:34 Blood Culture - Preliminary Blood No Growth after 72 hours Assessment and Plan (1) Atrial flutter, paroxysmal Status: Acute (2) Atypical atrial flutter Status: Acute (3) Chronic kidney disease Status: Acute (4) Elevated troponin Status: Acute (5) Fall Status: Acute (6) Renal insufficiency Status: Acute (7) Dementia Status: Chronic (8) UTI (urinary tract infection) Status: Suspected Plan: Arrangements are being made for the patient to be discharged home today. SHe' ll follow-up with her primary care doctor post discharge. We will make her a follow-up appointment in the office post discharge as well. Is not a candidate for anticoagulation because of frequent falls. DNP note has been reviewed, I agree with a documented findings and plan of care. Patient was seen and examined.
[2017-02-21] MEDS: LEVOTHYROXINE 25 MCG TAB PO SCH (06:36)
[2017-02-21 07:54] VITALS: BP 128/67; PULSE 74; RESP 16; TEMP 97.6
[2017-02-21] MEDS: ALPRAZolam 0.5 MG TAB PO SCH (08:06)
[2017-02-21] MEDS: ALLOPURINOL 300 MG TAB PO SCH (08:06)
[2017-02-21] MEDS: LORATADINE 10 MG TAB PO SCH (08:06)
[2017-02-21] MEDS: DICYCLOMINE 10 MG CAP PO SCH ×2 (08:06→12:34)
[2017-02-21] MEDS: POTASSIUM CHLORIDE ER 10 MEQ TAB.ER.PRT PO SCH (08:06)
[2017-02-21] MEDS: METOPROLOL TARTRATE 50 MG TAB PO SCH (08:06)
[2017-02-21] MEDS: HEPARIN SODIUM,PORCINE 5,000 UNIT/ML 1 ML VIAL SQ SCH (08:06)
[2017-02-21] MEDS: FLUTICASONE 50MCG/SPRAY NASAL 16GM EA NOSTRIL SCH (08:06)
[2017-02-21] MEDS: FAMOTIDINE 20 MG TAB PO SCH (08:06)
[2017-02-21] MEDS: NYSTATIN 100,000 UNIT/GM POWD 15 GM TOPICAL SCH (08:07)
[2017-02-22] MEDS ORDERED: ALLOPURINOL 100 MG TAB PO SCH (09:00)
--- NOTE | 2017-02-25 08:51 | CDI ---
In responding to this query, please exercise your independent professional judgment. The [facility] Coding Staff and Clinical Documentation Specialists appreciate your assistance in clarifying documentation, maintaining compliance with coding guidelines, accurately documenting patients condition and capturing severity of illness. The fact that a question is asked does not imply that any particular answer is desired or expected. Communication forms are a method of clarifying documentation and are not made part of the Legal Health Record. Thank you in advance for your clarification. Last Revision, April 2015 Saundra Cline [address] [facility] [place] [address] Documentation Clarification Form Date: 02/25/2017 8:36:00 AM From: Brittany Mitchell Admit Date: 02/15/2017 11:07:00 PM Patient Name: Franko Sawyer Visit Number: [id number] Discharge Date: 02/25/17 Dr. Margot Regan, Conflicting documentation has been found in the medical record. In H&P by Dr Hendricks and 02/19 consult by Reinaldo Garibay - all document that patient had sepsis. Clinical Indicators: lactic acid Rflx Y - 3.0 (H), WBC 16.2 (H), neutrophils 14.2 (H), BP 101/58 on 02/15 Treatment: IV Rocephin, IV Levaquin Please clarify if the patient had sepsis? Sepsis on admission Sepsis ruled out OTHER explanation of clinical findings Unable to determine (no explanation for clinical findings) Please document addendum in your discharge summary in order to capture severity of illness and risk of mortality. Include clinical findings that support your diagnosis. FYI: Press F11 to launch patient chart. If you have a question about this query, please contact Tamiko Ray, Quantitative Researcher, Saundra Cline at [phone] between 8am and 5pm. KELLIE
--- NOTE | 2017-03-07 08:48 | CDI ---
In responding to this query, please exercise your independent professional judgment. The [facility] Coding Staff and Clinical Documentation Specialists appreciate your assistance in clarifying documentation, maintaining compliance with coding guidelines, accurately documenting patients condition and capturing severity of illness. The fact that a question is asked does not imply that any particular answer is desired or expected. Communication forms are a method of clarifying documentation and are not made part of the Legal Health Record. Thank you in advance for your clarification. Last Revision, April 2015 Saundra Cline [address] [facility] [place] [address] Documentation Clarification Form Date: 02/25/2017 8:36:00 AM From: Brittany Mitchell Admit Date: 02/15/2017 11:07:00 PM Patient Name: Franko Sawyer Visit Number: [id number] Discharge Date: 02/21/17 Dr. Margot Regan Conflicting documentation has been found in the medical record. In H&P by Dr Hendricks and 02/19 consult by Reinaldo Garibay - all document that patient had sepsis. Clinical Indicators: lactic acid Rflx Y - 3.0 (H), WBC 16.2 (H), neutrophils 14.2 (H), BP 101/58 on 02/15 Treatment: IV Rocephin, IV Levaquin Please clarify if the patient had sepsis? Sepsis on admission Sepsis ruled out OTHER explanation of clinical findings Unable to determine (no explanation for clinical findings) Please document addendum in your discharge summary in order to capture severity of illness and risk of mortality. Include clinical findings that support your diagnosis. FYI: Press F11 to launch patient chart. If you have a question about this query, please contact Tamiko Ray, Slicing Machine Operator/Tender, Saundra Cline at [phone] between 8am and 5pm. KELLIE
== END 2017-02-21 14:05 | DRG 689 ==
LOC: EC 19:11 → 6SEL 23:07 → 5MS5E 02-17 13:14 → 6SEL 02-19 10:37 → 4MS4W 02-20 15:04
PROVIDERS: ADMIT Hospitalist; ATTEND Hospitalist
DX: N39.0 Urinary tract infection, site not specified (principal); N17.0 Acute kidney failure with tubular necrosis; I13.0 Hypertensive heart and chronic kidney disease with heart failure and stage 1 through stage 4 chronic kidney disease, or unspecified chronic kidney disease; I50.32 Chronic diastolic (congestive) heart failure; I48.4 Atypical atrial flutter; N18.4 Chronic kidney disease, stage 4 (severe); E83.52 Hypercalcemia; E86.0 Dehydration; F03.90 Unspecified dementia, unspecified severity, without behavioral disturbance, psychotic disturbance, mood disturbance, and anxiety; B37.2 Candidiasis of skin and nail; E87.6 Hypokalemia; H91.90 Unspecified hearing loss, unspecified ear; J30.9 Allergic rhinitis, unspecified; W19.XXXA Unspecified fall, initial encounter; Y92.009 Unspecified place in unspecified non-institutional (private) residence as the place of occurrence of the external cause
CPT/HCPCS: 36415; 70450; 71020; 72125; 72170; 80048; 80053; 80061; 81001; 82550; 82553; 83605; 83735; 84443; 84484; 85025; 85027; 85610; 85730; 87040; 87086; 93005; 93306; 96361; 96365; 96367; 99285

== ENCOUNTER 2017-04-12 07:50 | Inpatient (IN) | payer MEDICARE ==
[2017-04-12] MEDS: HYDROmorphone 1 MG/ML 1 ML SYRINGE IVP STA ×2 (08:15→10:04)
--- NOTE | 2017-04-12 08:17 | ED ---
General Adult HPI - General Stated complaint: FALL, POSS LEFT HIP Fx Time Seen by Provider: 04/12/17 07:50 Source: patient, RN notes reviewed Mode of arrival: EMS Limitations: no limitations - History of Present Illness Initial comments: This is a 81-year-old female with a history of multiple medical problems was seen in this emergency department 2 weeks ago after a fall who is sent back today because of a reported left hip fracture was found on x-rays done in a residential. Patient is complaining of left-sided hip pain she denies any fevers chills or sweats she is hard of hearing can only hear out of her left ear. Workup at the time of the initial emergency department visit including CAT scans of the head neck and x-rays of the pelvis. - Related Data Home Medications Medication Instructions Recorded Confirmed Allopurinol [Zyloprim] 300 mg PO DAILY 02/16/17 04/12/17 Dicyclomine HCl 10 mg PO Q6H 02/16/17 04/12/17 Fluticasone Nasal [place] [Flonase 1 spray EA NOSTRIL DAILY 02/16/17 04/12/17 Nasal [place]] Levothyroxine Sodium [Synthroid] 25 mcg PO DAILY 02/16/17 04/12/17 ALPRAZolam [Xanax] 0.25 mg PO BID PRN 04/12/17 04/12/17 Albuterol Nebulized [Ventolin 2.5 mg INHALATION RT-Q4H PRN 04/12/17 04/12/17 Nebulized] Atorvastatin [Lipitor] 10 mg PO HS 04/12/17 04/12/17 Buprenorphine [Butrans 10 MCG/HOUR] 1 patch TRANSDERM TU 04/12/17 04/12/17 Clotrimazole/Betamethasone Dip 1 applic TOPICAL BID 04/12/17 04/12/17 [Lotrisone Cream] Ergocalciferol (Vitamin D2) 50,000 unit PO Q90D 04/12/17 04/12/17 [Vitamin D2] Furosemide [Lasix] 40 mg PO BID 04/12/17 04/12/17 HYDROcodone/APAP 5-325MG [[place] 1 tab PO Q4HR PRN 04/12/17 04/12/17 5-325] Lactose-Reduced Food [Ensure Plus] 1 can PO BID 04/12/17 04/12/17 Loratadine [Claritin] 10 mg PO DAILY PRN 04/12/17 04/12/17 Metolazone [Zaroxolyn] 5 mg PO MOTH 04/12/17 04/12/17 Metoprolol Tartrate [Lopressor] 50 mg PO DAILY 04/12/17 04/12/17 Potassium Chloride [Klor-Con 20] 20 meq PO BID 04/12/17 04/12/17 Ranitidine HCl [Zantac] 150 mg PO BID 04/12/17 04/12/17 guaiFENesin [guaiFENesin Oral 200 mg PO Q4HR PRN 04/12/17 04/12/17 Solution] hydrALAZINE HCL [Apresoline] 50 mg PO TID 04/12/17 04/12/17 prednisoLONE ACETATE [Pred Forte 2 drop LEFT EYE DAILY 04/12/17 04/12/17 1%] Previous Rx's Medication Instructions Recorded Acetaminophen Tab [Tylenol] 650 mg PO Q6HR PRN tab 02/20/17 Allergies Allergy/AdvReac Type Severity Reaction Status Date / Time No Known Allergies Allergy Verified 04/12/17 07:55 Review of Systems ROS Statement: Those systems with pertinent positive or pertinent negative responses have been documented in the HPI. ROS Other: All systems not noted in ROS Statement are negative. Past Medical History Past Medical History: Dementia, Myocardial Infarction ([place]) Additional Past Medical History / Comment(s): blind in the right eye, hard of hearing. History of Any Multi-Drug Resistant Organisms: None Reported Past Surgical History: No Surgical Hx Reported Additional Past Surgical History / Comment(s): pt states hse has a lot of problems with her ears, nose and throat. Past Anesthesia/Blood Transfusion Reactions: No Reported Reaction Past Psychological History: No Psychological Hx Reported Smoking Status: Never smoker Past Alcohol Use History: None Reported Past Drug Use History: None Reported - Past Family History Father Family Medical History: No Reported History Mother Family Medical History: No Reported History, Osteoarthritis (OA), Rheumatoid Arthritis (RA) Additional Family Medical History / Comment(s): kidney problems, specific type unknown General Exam - General Exam Comments Initial Comments: This is a well-developed well-nourished awake alert female she can only hear out of her left ear. She does demonstrate ecchymosis over the entire face especially inferior orbits she also demonstrates some drainage from the right eye which is somewhat. In nature yellow in color. Limitations: no limitations General appearance: alert, in no apparent distress Head exam: Present: normocephalic (Multiple bruises noted over the face as described the air in the very states of healing.) ENT exam: Present: normal oropharynx, mucous membranes moist, other (The patient is blind in the right eye there is exudate mentioned above.) Neck exam: Present: normal inspection. Absent: tenderness, meningismus, lymphadenopathy Respiratory exam: Present: normal lung sounds bilaterally. Absent: respiratory distress, wheezes, rales, rhonchi, stridor Cardiovascular Exam: Present: regular rate, normal rhythm, normal heart sounds. Absent: systolic murmur, diastolic murmur, rubs, gallop, clicks GI/Abdominal exam: Present: soft, normal bowel sounds. Absent: distended, tenderness, guarding, rebound, rigid Extremities exam: Present: tenderness, normal capillary refill, other ( Tenderness over the left hip. Is evidence of shortening and lateral rotation left lower extremity patient does have wraps on both lower extremities). Absent : full ROM Neurological exam: Present: alert, oriented X3, other (Right eye blindness and inability here of the right ear otherwise unremarkable) Psychiatric exam: Present: normal affect, normal mood Skin exam: Present: warm, dry, other (Patient does demonstrate pressure sores to the coccyx and left buttock erythema to the coccyx region likely stage II the left buttock.) Course Vital Signs 04/12/17 04/12/17 04/12/17 08:03 08:54 10:07 Temperature 98.0 F Pulse Rate 91 104 H 101 H Respiratory 18 20 18 Rate Blood Pressure 168/77 166/69 O2 Sat by Pulse 94 L 95 98 Oximetry 04/12/17 10:24 Temperature Pulse Rate 103 H Respiratory 18 Rate Blood Pressure 170/70 O2 Sat by Pulse 98 Oximetry Medical Decision Making - Medical Decision Making I did discuss findings with the patient and with a family member was present. Patient will be admitted I did discuss the case with Leila Linder who is covering for Dr. Mcguire I also did discuss the case with Juhi who is covering Dr. Diehl who normally sees Dr. Carroll's patients. Patient will be admitted with consultation for clearance for surgery. - Lab Data Result diagrams: 04/12/17 08:09 04/12/17 08:09 Lab Results 04/12/17 04/12/17 04/12/17 Range/Units 08:09 08:09 08:09 WBC 7.3 (3.8-10.6) k/uL RBC 4.25 (3.80-5.40) m/uL Hgb 11.4 (11.4-16.0) gm/dL Hct 37.2 (34.0-46.0) % MCV 87.7 (80.0-100.0) fL MCH 26.8 (25.0-35.0) pg MCHC 30.6 L (31.0-37.0) g/dL RDW 15.5 (11.5-15.5) % Plt Count 292 (150-450) k/uL Neutrophils % 78 % Lymphocytes % 9 % Monocytes % 7 % Eosinophils % 3 % Basophils % 0 % Neutrophils # 5.7 (1.3-7.7) k/uL Lymphocytes # 0.7 L (1.0-4.8) k/uL Monocytes # 0.5 (0-1.0) k/uL Eosinophils # 0.2 (0-0.7) k/uL Basophils # 0.0 (0-0.2) k/uL Hypochromasia Moderate PT 9.8 (9.0-12.0) sec INR 1.0 (<1.2) APTT 20.8 L (22.0-30.0) sec Sodium (137-145) mmol/L Potassium (3.5-5.1) mmol/L Chloride (98-107) mmol/L Carbon Dioxide (22-30) mmol/L Anion Gap mmol/L BUN (7-17) mg/dL Creatinine (0.52-1.04) mg/dL Est GFR (MDRD) Af Amer (>60 ml/min/1.73 sqM) Est GFR (MDRD) Non-Af (>60 ml/min/1.73 sqM) Glucose (74-99) mg/dL Calcium (8.4-10.2) mg/dL Magnesium (1.6-2.3) mg/dL Total Bilirubin (0.2-1.3) mg/dL AST (14-36) U/L ALT (9-52) U/L Alkaline Phosphatase (38-126) U/L Total Creatine Kinase 22 L (30-135) U/L CK-MB (CK-2) 0.5 (0.0-2.4) ng/mL CK-MB (CK-2) Rel Index 2.3 Total Protein (6.3-8.2) g/dL Albumin (3.5-5.0) g/dL 04/12/17 Range/Units 08:09 WBC (3.8-10.6) k/uL RBC (3.80-5.40) m/uL Hgb (11.4-16.0) gm/dL Hct (34.0-46.0) % MCV (80.0-100.0) fL MCH (25.0-35.0) pg MCHC (31.0-37.0) g/dL RDW (11.5-15.5) % Plt Count (150-450) k/uL Neutrophils % % Lymphocytes % % Monocytes % % Eosinophils % % Basophils % % Neutrophils # (1.3-7.7) k/uL Lymphocytes # (1.0-4.8) k/uL Monocytes # (0-1.0) k/uL Eosinophils # (0-0.7) k/uL Basophils # (0-0.2) k/uL Hypochromasia PT (9.0-12.0) sec INR (<1.2) APTT (22.0-30.0) sec Sodium 135 L (137-145) mmol/L Potassium 3.7 (3.5-5.1) mmol/L Chloride 89 L (98-107) mmol/L Carbon Dioxide 35 H (22-30) mmol/L Anion Gap 11 mmol/L BUN 60 H (7-17) mg/dL Creatinine 2.12 H (0.52-1.04) mg/dL Est GFR (MDRD) Af Amer 27 (>60 ml/min/1.73 sqM) Est GFR (MDRD) Non-Af 22 (>60 ml/min/1.73 sqM) Glucose 97 (74-99) mg/dL Calcium 11.0 H (8.4-10.2) mg/dL Magnesium 1.4 L (1.6-2.3) mg/dL Total Bilirubin 0.6 (0.2-1.3) mg/dL AST 26 (14-36) U/L ALT 33 (9-52) U/L Alkaline Phosphatase 107 (38-126) U/L Total Creatine Kinase (30-135) U/L CK-MB (CK-2) (0.0-2.4) ng/mL CK-MB (CK-2) Rel Index Total Protein 6.5 (6.3-8.2) g/dL Albumin 3.3 L (3.5-5.0) g/dL - Radiology Data Radiology results: report reviewed (I did review the imaging and report and discussed this with radiologist patient does demonstrate a left hip fracture.), image reviewed Disposition Clinical Impression: Fracture of hip, Renal insufficiency syndrome, Hypomagnesemia Disposition: ADMITTED IP TO THIS [facility] Condition: Stable Referrals: Howard Banda DO [Primary Care Provider] - 1-2 days
[2017-04-12 08:20] LABS: Basophils % (A) 0 %; CHCM 30.8; Eosinophils # (A) 0.2 k/uL (0-0.7); Eosinophils % (A) 3 %; HCT 37.2 % (34.0-46.0); HDW 2.64; HGB 11.4 gm/dL (11.4-16.0); Hypochromasia Moderate; Luc # (Auto) 0.18; Luc % (Auto) 2; Lymphocytes # (A) 0.7 k/uL (1.0-4.8); Lymphocytes % (A) 9 %; MCH 26.8 pg (25.0-35.0); MCHC 30.6 g/dL (31.0-37.0); MCV 87.7 fL (80.0-100.0); Monocytes # (A) 0.5 k/uL (0-1.0); Monocytes % (A) 7 %; Neutrophils # (A) 5.7 k/uL (1.3-7.7); Neutrophils % (A) 78 %; RBC 4.25 m/uL (3.80-5.40); RDW 15.5 % (11.5-15.5); WBC 7.3 k/uL (3.8-10.6); WBC (Perox) 7.54
[2017-04-12 08:29] LABS: Prothrombin Time 9.8 sec (9.0-12.0)
[2017-04-12 08:32] LABS: Magnesium 1.4 mg/dL (1.6-2.3); Potassium 3.7 mmol/L (3.5-5.1); Total Bilirubin 0.6 mg/dL (0.2-1.3); Total Protein 6.5 g/dL (6.3-8.2)
[2017-04-12 08:46] LABS: Partial Thromboplastin Time 20.8 sec (22.0-30.0)
[2017-04-12 08:49] LABS: Creatine Kinase MB 0.5 ng/mL (0.0-2.4)
--- NOTE | 2017-04-12 09:05 | XR ---
EXAMINATION TYPE: XR chest 1V portable DATE OF EXAM: 04/12/2017 COMPARISON: Prior chest x-ray 03/28/2017 HISTORY: Pain, trauma, shortness of breath TECHNIQUE: Single frontal view of the chest is obtained. FINDINGS: Patient is rotated. High riding right shoulder persists. No evident pneumothorax or sizabl e effusion. The heart is enlarged. Interstitium is increased. Pulmonary artery is prominent, central vascularity increased. IMPRESSION: Correlate for pulmonary venous hypertension and interstitial edema. There may be underly ing pulmonary artery hypertension.
--- NOTE | 2017-04-12 10:01 | CT ---
EXAMINATION TYPE: CT pelvis wo con DATE OF EXAM: 04/12/2017 COMPARISON: Left hip radiographs dated 04/12/2017 HISTORY: Fall CT DLP: 388.3 mGycm Automated exposure control for dose reduction was used. FINDINGS: There is a transcervical left femoral hip fracture with cephalad displacement of the distal fracture fragment of approximately 2.4 cm and Vertex anterior angulation. There is also approximately 4 mm imp action without comminution. Bony productive changes seen around the left hip joint from osteoarthropa thy. There is also joint space loss and subchondral cartilaginous loss in the posterior cephalad posi tion of both hips without subchondral cysts compatible with mild arthropathy. Surrounding the left hi p fracture there is a small joint effusion and surrounding inflammatory change. Muscle volume appears relatively symmetric to the right with no evidence of intramuscular hematoma although myositis is red spected as there is slight difference in attenuation. Sigmoid diverticula are noted although the bowel is nonenlarged. Urinary bladder and prostate gland a re unremarkable. No adenopathy is appreciated within the visualized pelvis. Moderate calcific changes are seen of the abdominal aorta and its branches. Degenerative changes of the lumbosacral junction a re present. There is no evidence of dislocation of the left hip. Acetabulum appears intact. Sacroilia c joints are symmetric. There is mild osseous demineralization throughout. IMPRESSION: MINIMALLY IMPACTED, CEPHALAD DISTRACTED, NONCOMMINUTED LEFT TRANSCERVICAL ACUTE FEMORAL HIP FRACTURE WITH SMALL SURROUNDING HEMARTHROSIS AND MYOSITIS OF THE SURROUNDING MUSCULATURE. Findings were communicating to the ordering physician Dr. Headley at 9:58 AM on 04/12/[address] Chester.
[2017-04-12] MEDS ORDERED: SODIUM CHLORIDE 0.9% 1,000 ML IV STA (10:05)
[2017-04-12] MEDS ORDERED: MAGNESIUM SULFATE-D5W PMX 1 GM in DEXTROSE/WATER 1 100ML.BAG IVPB ONE (10:05)
[2017-04-12] MEDS ORDERED: SODIUM CHLORIDE 0.9% 500 ML IV STA (10:05)
[2017-04-12] MEDS ORDERED: ONDANSETRON 4 MG/2 ML VIAL IVP PRN (10:48)
[2017-04-12] MEDS ORDERED: NALOXONE 0.4 MG/ML 1 ML VIAL IV PRN (10:48)
[2017-04-12 10:57] LABS: Appearance,Urine Cloudy (Clear); Bacteria,Urine Rare /hpf; Bilirubin,Urine Negative (Negative); Glucose,Urine (UA) Negative (Negative); Ketones,Urine Negative (Negative); Leukocyte Esterase,Urine Large (Negative); Nitrite,Urine Negative (Negative); Particle Count 4161; Protein,Urine Trace (Negative); Specific Gravity,Urine 1.006 (1.001-1.035); UA Billing (MACRO vs. MICRO) MICRO; Urobilinogen,Urine <2.0 mg/dL (<2.0); WBC,Urine >182 /hpf (0-5)
[2017-04-12 11:58] LABS: Appearance,Urine Turbid (Clear); Bacteria,Urine Rare /hpf; Bilirubin,Urine Negative (Negative); Glucose,Urine (UA) Negative (Negative); Ketones,Urine Negative (Negative); Leukocyte Esterase,Urine Large (Negative); Nitrite,Urine Negative (Negative); Particle Count 24718; Protein,Urine 2+ (Negative); RBC,Urine 23 /hpf (0-5); UA Billing (MACRO vs. MICRO) MICRO; Urobilinogen,Urine <2.0 mg/dL (<2.0); WBC,Urine >182 /hpf (0-5)
[2017-04-12 12:01] LABS: Specific Gravity,Urine 1.006 (1.001-1.035)
--- NOTE | 2017-04-12 12:21 | P.HPOR ---
History of Present Illness H&P Date: 04/12/17 Chief Complaint: Left hip fracture This is a 81 year old white female who presents with left hip fracture. The patient lives in an extended care facility and fell a few weeks ago. At this time, x-rays were negative for a fracture. The patient has been ambulating with pain. Past Medical History Past Medical History: Heart Failure, COPD, Dementia, GERD/Reflux, Hyperlipidemia , Hypertension, Renal Disease, Respiratory Disorder, Thyroid Disorder Additional Past Medical History / Comment(s): Pt was born with cleft palate and other physical problems with facial structures including nasal passages and ear canals and festus at bedside states that the ear canals are collapsing. 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 Last Myocardial Infarction Date:: unknown History of Any Multi-Drug Resistant Organisms: None Reported Past Surgical History: Bladder Surgery, Joint Replacement, Orthopedic Surgery Additional Past Surgical History / Comment(s): Pt has had multiple surgeries for defects affecting mouth, nose and ears, total L knee arthroplasty, bladder sling, fistula L arm. Past Anesthesia/Blood Transfusion Reactions: No Reported Reaction Past Psychological History: No Psychological Hx Reported Additional Psychological History / Comment(s): Pt now resides at [facility]. She was getting around in a wheelchair. She wears O2 at 3L/NC. She gets updraft treatments 4 times a day. She is on a regular thin consistency diet and ensure plus bwice a day. Smoking Status: Former smoker Past Alcohol Use History: None Reported Additional Past Alcohol Use History / Comment(s): Pt quit smoking in 1966. Past Drug Use History: None Reported - Past Family History Father Family Medical History: Cancer Additional Family Medical History / Comment(s): Father prior to age 60 yrs with esophageal cancer. He was a smoker and a drinker. Mother Family Medical History: Osteoarthritis (OA), Renal Disease, Rheumatoid Arthritis (RA) Additional Family Medical History / Comment(s): kidney problems, specific type unknown Medications and Allergies Home Medications Medication Instructions Recorded Confirmed Type Allopurinol [Zyloprim] 300 mg PO DAILY 02/16/17 04/12/17 History Dicyclomine HCl 10 mg PO Q6H 02/16/17 04/12/17 History Fluticasone Nasal [place] [Flonase 1 spray EA NOSTRIL DAILY 02/16/17 04/12/17 History Nasal [place]] Levothyroxine Sodium [Synthroid] 25 mcg PO DAILY 02/16/17 04/12/17 History Acetaminophen Tab [Tylenol] 650 mg PO Q6HR PRN tab 02/20/17 04/12/17 Rx ALPRAZolam [Xanax] 0.25 mg PO BID PRN 04/12/17 04/12/17 History Albuterol Nebulized [Ventolin 2.5 mg INHALATION RT-Q4H PRN 04/12/17 04/12/17 History Nebulized] Atorvastatin [Lipitor] 10 mg PO HS 04/12/17 04/12/17 History Buprenorphine [Butrans 10 MCG/HOUR] 1 patch TRANSDERM TU 04/12/17 04/12/17 History Clotrimazole/Betamethasone Dip 1 applic TOPICAL BID 04/12/17 04/12/17 History [Lotrisone Cream] Ergocalciferol (Vitamin D2) 50,000 unit PO Q90D 04/12/17 04/12/17 History [Vitamin D2] Furosemide [Lasix] 40 mg PO BID 04/12/17 04/12/17 History HYDROcodone/APAP 5-325MG [[place] 1 tab PO Q4HR PRN 04/12/17 04/12/17 History 5-325] Lactose-Reduced Food [Ensure Plus] 1 can PO BID 04/12/17 04/12/17 History Loratadine [Claritin] 10 mg PO DAILY PRN 04/12/17 04/12/17 History Metolazone [Zaroxolyn] 5 mg PO MOTH 04/12/17 04/12/17 History Metoprolol Tartrate [Lopressor] 50 mg PO DAILY 04/12/17 04/12/17 History Potassium Chloride [Klor-Con 20] 20 meq PO BID 04/12/17 04/12/17 History Ranitidine HCl [Zantac] 150 mg PO BID 04/12/17 04/12/17 History guaiFENesin [guaiFENesin Oral 200 mg PO Q4HR PRN 04/12/17 04/12/17 History Solution] hydrALAZINE HCL [Apresoline] 50 mg PO TID 04/12/17 04/12/17 History prednisoLONE ACETATE [Pred Forte 2 drop LEFT EYE DAILY 04/12/17 04/12/17 History 1%] Allergies Allergy/AdvReac Type Severity Reaction Status Date / Time No Known Allergies Allergy Verified 04/12/17 07:55 Physical Examination This is an 81 year old female in no acute distress. She is alert and oriented but significantly hearing impaired. Skin: Periorbital ecchymosis noted bilaterally and worse surrounding left eye. There is swelling on the medial forehead. HEENT: The patient is unable to hear without hearing aids. Musculoskeletal: Neck, bilateral wrists and arms have full ROM. The left leg is shorter than the right. Pain at hip with movement of left leg. No lower extremity edema or other extremity deformities noted. Vascular: Grossly intact. Dorsalis pedis pulses equal and 2+ bilaterally. Neurologic: Grossly intact. Results CT scan of pelvis and left hip reveal a displaced subcapital fracture of left hip. No other acute findings noted. - Labs Labs: Abnormal Lab Results - Last 24 Hours (Table) 04/12/17 04/12/17 04/12/17 Range/Units 08:09 08:09 08:09 MCHC 30.6 L (31.0-37.0) g/dL Lymphocytes # 0.7 L (1.0-4.8) k/uL APTT 20.8 L (22.0-30.0) sec Sodium (137-145) mmol/L Chloride (98-107) mmol/L Carbon Dioxide (22-30) mmol/L BUN (7-17) mg/dL Creatinine (0.52-1.04) mg/dL Calcium (8.4-10.2) mg/dL Magnesium (1.6-2.3) mg/dL Total Creatine Kinase 22 L (30-135) U/L Albumin (3.5-5.0) g/dL Urine Appearance (Clear) Urine Protein (Negative) Urine Blood (Negative) Ur Leukocyte Esterase (Negative) Urine RBC (0-5) /hpf Urine WBC (0-5) /hpf Urine WBC Clumps (None) /hpf Urine Bacteria (None) /hpf 04/12/17 04/12/17 04/12/17 Range/Units 08:09 10:10 11:30 MCHC (31.0-37.0) g/dL Lymphocytes # (1.0-4.8) k/uL APTT (22.0-30.0) sec Sodium 135 L (137-145) mmol/L Chloride 89 L (98-107) mmol/L Carbon Dioxide 35 H (22-30) mmol/L BUN 60 H (7-17) mg/dL Creatinine 2.12 H (0.52-1.04) mg/dL Calcium 11.0 H (8.4-10.2) mg/dL Magnesium 1.4 L (1.6-2.3) mg/dL Total Creatine Kinase (30-135) U/L Albumin 3.3 L (3.5-5.0) g/dL Urine Appearance Cloudy H Turbid H (Clear) Urine Protein Trace H 2+ H (Negative) Urine Blood Moderate H (Negative) Ur Leukocyte Esterase Large H Large H (Negative) Urine RBC 23 H (0-5) /hpf Urine WBC >182 H >182 H (0-5) /hpf Urine WBC Clumps Many H Many H (None) /hpf Urine Bacteria Rare H Rare H (None) /hpf H & H 04/12/17 Range/Units 08:09 Hgb 11.4 (11.4-16.0) gm/dL Hct 37.2 (34.0-46.0) % Coagulation 04/12/17 Range/Units 08:09 INR 1.0 (<1.2) Result Diagrams: 04/12/17 08:09 04/12/17 08:09 Assessment and Plan (1) Fracture of femoral neck, left Current Visit: Yes Status: Acute Code(s): S72.002A - FRACTURE OF UNSP PART OF NECK OF LEFT FEMUR, INIT SNOMED Code(s): 6201502 (2) Fracture of hip Current Visit: Yes Status: Acute Code(s): S72.009A - FRACTURE OF UNSP PART OF NECK OF UNSP FEMUR, INIT SNOMED Code(s): 267785854 Plan: The clinical and x-ray findings are discussed with the patient and her daughters. It is recommended that she undergo hemiarthroplasty of the left hip. The surgical procedure was discussed in detail including the possible risks associated with the procedure and anesthesia. After discussion and consideration , they elect to proceed with surgery. Pre-surgical clearance is pending.
[2017-04-12] MEDS ORDERED: METOPROLOL TARTRATE 25 MG TAB PO STA (13:16)
[2017-04-12] MEDS ORDERED: METOPROLOL TARTRATE 50 MG TAB PO SCH (13:30)
[2017-04-12] MEDS: hydrALAZINE HCL 50 MG TAB PO SCH ×3 (13:54→21:56)
--- NOTE | 2017-04-12 13:55 | CONS ---
CONSULTATION DATE OF CONSULTATION: 04/12/2017 REASON FOR CONSULTATION: Medical management requested by Dr. Tolliver. CONSULTATION: This is a 81-year-old patient followed by Dr. Howard Carroll. Chronic stable medical conditions include atrial fibrillation, dementia, COPD, hyperlipidemia, hypertension. The patient is deaf in the right ear and also got chronic kidney disease. The patient is on home oxygen 3 L. The patient's daughter, Corinne Cabrera is at the bedside is also patient's POA. States the patient fell about 2 weeks ago, is complaining of pain in the left hip and it was discovered that she has a left femoral neck fracture and is going to proceed for surgery. The patient has known atrial fibrillation and patient bruises very easily. Hence, because of falls, it was decided not to anticoagulate the patient. The patient normally uses a wheelchair to get about. Her appetite has not been very good. The patient is able to answer simple questions. 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 Patient also got bruising on the left side of the face from the fall 10 days ago. REVIEW OF SYSTEMS: Difficult to obtain as the patient does not speak too well. PAST MEDICAL HISTORY: Atrial fibrillation, not for anticoagulation because of heavy bruising, dementia, COPD, hyperlipidemia, hypertension, deaf in the right ear, chronic kidney disease, left arm fistula, home oxygen 3 L, hypothyroid, gait dysfunction. PAST SURGICAL HISTORY: Bladder surgery, joint replacement, multiple surgery for defect affecting the mouth, nose and ears, total left knee arthroplasty, bladder sling, fistula in the left arm. SOCIAL HISTORY: Patient is a resident of [facility]. Uses a wheelchair and oxygen 3 L. The patient is on a thin consistency diet, Ensure Plus twice a day. FAMILY HISTORY: Father had esophageal cancer, age of 60. HOME MEDICATIONS: 1. Prednisone Forte 1% 2 drops left eye daily. 2. Hydralazine 50 mg p.o. t.i.d. 3. Guaifenesin 200 mg p.o. q.8h p.r.n. 4. Zantac 150 mg p.o. b.i.d. 5. Potassium 20 mEq p.o. b.i.d. 6. Lopressor 50 mg p.o. daily. 7. Zaroxolyn 5 mg p.o. Mondays and . 8. Claritin 10 mg p.o. daily p.r.n. 9. Synthroid 25 mcg p.o. daily. 10.Ensure Plus 1 can p.o. b.i.d. 11.[place] 5 one tab q.4 p.r.n. 12.Lasix 40 mg p.o. b.i.d. 13.Flonase 1 spray each nostril daily. 14.Vitamin D2 50,000 units p.o. q.90 days. 15.Dicyclomine 10 mg p.o. q.6. 16.Lotrisone cream topical b.i.d. 17.Butrans 10 mcg an hour 1 patch on Tuesdays. 18.Lipitor 10 mg p.o. q.h.s. 19.Allopurinol 10 mg p.o. daily. 20.Ventolin 2.5 nebulizer q.4h p.r.n. 21.Tylenol 650 mg q.6h p.r.n. 22.Xanax 0.25 p.o. b.i.d. p.r.n. ALLERGIES: None. PHYSICAL EXAMINATION: Temperature 97.6, pulse 115, respirations 16, blood pressure 150/74, pulse ox 97% on 2 L. GENERAL APPEARANCE: Average built, BMI 32.4, lying in bed, tired appearing. EYES: Pupils equal, conjunctivae normal. HEENT: Extensive bruising on the left side of the face. Patient also wearing eyeglasses. Oral cavity missing dentition. Decreased hearing. NECK: JVD unable to assess. Mass not palpable. RESPIRATORY: Effort normal. Lungs, diminished breath sounds. CARDIOVASCULAR: Heart sounds irregular, no edema. ABDOMEN: Soft, nontender. Liver and spleen not palpable. LYMPHATIC: No lymph nodes palpable in neck or axillae. PSYCHIATRY: Patient able answer simple questions. Mood and affect slightly low. NEUROLOGICAL: Pupils equal. Cranial nerves grossly intact. Limited range of motion of the left hip at the fracture site. MUSCULOSKELETAL: Again limited range of motion of the left hip. 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 INVESTIGATIONS: White count 7.3, hemoglobin 11.4, potassium 1, BUN 60, creatinine 2.12. UA positive for leuko esterase, WBC. Pelvic x-ray shows minimally impacted cephalad distracted noncommunicated left transcervical femoral neck fracture. Chest x-ray, no specific findings. ASSESSMENT: 1. Acute femoral neck fracture from a fall about 10 days ago. 2. Excessive bruising on the left side of the face from a fall recently. 3. Atrial flutter fibrillation, chronic, persistent, not a candidate for anticoagulation. Patient bruises very easily. 4. Alzheimer's dementia with psychosis. 5. Chronic obstructive pulmonary disease. 6. Hyperlipidemia. 7. Essential hypertension. 8. Deaf in the right ear and decreased hearing in the left ear. 9. Chronic kidney disease, stage 4, probably from hypertensive nephrosclerosis. 10.Chronic hypoxic respiratory failure on 3 L of oxygen. 11.Hypothyroid. 12.Acute urinary tract infection. 13.Chronic hypoxic respiratory failure, probably from underlying chronic obstructive pulmonary disease. 14.Patient's code status DNR as discussed with the daughter. PLAN: Spoke to the patient's daughter at the bedside. She does understand the patient is a high risk for surgery given her multiple comorbidities, but she understands the same. I also conveyed this to Dr. Tolliver's PA. Patient meantime is to continue with the medications. We will give the patient IV ceftriaxone for the UTI. MMODL / IJN: [id number] /
[2017-04-12] MEDS: ATORVASTATIN 10 MG TAB PO SCH (20:28)
[2017-04-13] MEDS: HYDROmorphone 1 MG/ML 1 ML SYRINGE IVP PRN ×4 (02:18→22:40)
[2017-04-13] MEDS: LEVOTHYROXINE 25 MCG TAB PO SCH (05:37)
[2017-04-13] MEDS: hydrALAZINE HCL 50 MG TAB PO SCH ×3 (08:47→20:22)
[2017-04-13] MEDS: TRANEXAMIC ACID 1,000 MG in SODIUM CHLORIDE 0.9% 100 ML IVPB SCH (08:48)
[2017-04-13] MEDS ORDERED: METOPROLOL TARTRATE 50 MG TAB PO SCH (09:00)
[2017-04-13] MEDS: FLUTICASONE 50MCG/SPRAY NASAL 16GM EA NOSTRIL SCH (09:56)
[2017-04-13] MEDS ORDERED: DILTIAZEM 125 MG in SODIUM CHLORIDE 0.9% 100 ML IV SCH (10:00)
[2017-04-13] MEDS ORDERED: HYDROmorphone 1 MG/ML 1 ML SYRINGE IVP PRN ×3 (11:52)
[2017-04-13] MEDS ORDERED: NALOXONE 0.4 MG/ML 1 ML VIAL IV PRN (11:52)
[2017-04-13] MEDS ORDERED: MAGNESIUM HYDROXIDE 2,400 MG/10 ML CUP PO PRN (11:52)
[2017-04-13] MEDS ORDERED: PHENYLEPHRINE-0.9% NACL SYG 1 MG/10 ML SYRINGE ONE (11:55)
[2017-04-13] MEDS ORDERED: TRANEXAMIC ACID 1,000 MG/10 ML VIAL ONE (11:55)
[2017-04-13] MEDS ORDERED: SODIUM CHLORIDE 0.9% 100 ML BAG ONE (11:55)
[2017-04-13] MEDS ORDERED: MIDAZOLAM 2 MG/2 ML VIAL ONE (11:55)
[2017-04-13] MEDS ORDERED: IV FLUID CONTINUATION 1,000 ML IV ONE (11:55)
[2017-04-13] MEDS ORDERED: KETAMINE 10 MG/ML 20 ML VIAL ONE (11:55)
[2017-04-13] MEDS ORDERED: SODIUM CHLORIDE 0.9% 100 ML with ceFAZolin 2,000 MG IV ONE ×2 (12:30)
[2017-04-13 12:36] VITALS: BMI 32.4
[2017-04-13] MEDS ORDERED: ceFAZolin 3,000 MG in SODIUM CHLORIDE 0.9% IRRIGATIO 3,000 ML IRRIGATION ONE (12:44)
--- NOTE | 2017-04-13 12:44 | CONS ---
CONSULTATION This is an 81-year-old lady with a history of atrial fibrillation and uncontrolled ventricular rate, dementia, COPD, who is also hard of hearing. She was here in February, seen by Dr. aJne. At that time, she was found to be in atrial flutter fibrillation, rate control was advised but because she was a fall risk, she was not anticoagulated. They were trying to find a placement for her, and again in March, she had a episode of fall with her oxygen tube and she got tangled with it and she fell down on her face and she hurt herself and also fell on her left side as well. At that time, she had a femoral neck fracture, which was discovered somewhat late and she was sent to the ER yesterday. She has a normal systolic function by echo in February. We do not know of any details about her a stress test in the recent or remote past. Patient is quite sedentary, but with her limited activity. She does not have any symptoms of chest pain. This patient is very hard of hearing and history was obtained through her daughter with written messages. She is comfortable, hemodynamically stable. Denies any chest discomfort at the time of my evaluation. She remains in atrial fibrillation. The rate is about 120 per minute. PAST MEDICAL HISTORY: 1. History of atrial fibrillation, rapid ventricular rate, without anticoagulation because of fall risk. 2. Chronic kidney disease. 3. Dementia. 4. COPD. 5. History of gait dysfunction. 6. Patient is hard of hearing. MEDICATIONS AT HOME: Include prednisone drops, hydralazine, potassium supplements, Lopressor, Zaroxolyn, Lasix, Ensure, Flonase, Lipitor, Tylenol. ALLERGIES: None. PHYSICAL EXAMINATION: On examination, blood pressure is 140/80, pulse rate is about 120, irregular. HEENT reveals multiple bruises on the face. There is extensive bruising noted and there is also some tenderness. NECK: Supple. I cannot appreciate JVD. I cannot assess JVD. There is no carotid bruit. Heart exam reveals S1, S2 with tachycardia. No significant murmurs. Lungs revealed decent air entry. Abdomen is soft, nontender. Lower extremities reveal palpable pulses. No significant edema. Detailed exam was not performed. EKG revealed atrial fib, moderately rapid ventricular rate, nonspecific ST-T changes. IMPRESSION: 1. History of fall and fracture about 2 weeks ago of the left femoral neck, going for surgery today. 2. Extensive bruising on the face from a recent fall. 3. Atrial fib with rapid rate, not a candidate for anticoagulation. 4. Patient is hard of hearing. 5. Hypertension. 6. History of chronic hypoxemia. 7. Chronic kidney disease. RECOMMENDATION: I am recommending that we a continue the beta ulysses, Lopressor 50 mg b.i.d. I also advised that we should use intravenous Cardizem if necessary preoperatively. Her LV function was normal in February. The overall risk is high given her multiple comorbid conditions. Advised cautious fluid administration and optimal blood pressure control perioperatively and rate control with IV Cardizem. Prognosis remains guarded. Risk is high and patient and daughter are fully aware of this. Thank you very much for the consult. CLAUDIA / MEGHANNN: [id number] /
[2017-04-13] MEDS ORDERED: SODIUM CHLORIDE 0.9% 500 ML IV ONE (14:15)
--- NOTE | 2017-04-13 14:28 | P.OP ---
Date of Procedure: 04/13/17 Procedure(s) Performed: PREOPERATIVE DIAGNOSIS: Left hip femoral neck fracture POSTOPERATIVE DIAGNOSIS: Left hip femoral neck fracture OPERATION: Left hip cemented unipolar hemiarthroplasty, metallic femoral head. ANESTHESIA: Spinal ESTIMATED BLOOD LOSS: 150 ml. CAR DRIVER: none COMPLICATIONS: None apparent. COMPONENTS IMPLANTED: Gabriel LDFx cemented femoral stem; unipolar femoral head; neck extension augments as needed. INDICATIONS: Mrs. Sawyer is an 81 year old female with a history of dementia and kidney disease with a history of falling and sustaining a femoral neck fracture. This fracture may have actually started in February but was not detected until recently. I have recommended surgical treatment with a cemented unipolar hemiarthroplasty. I have discussed this procedure in detail and explained the potential risks and complications as being inclusive of, but not limited to: Bleeding, infection, scarring, discomfort, blood vessel and/or nerve damage, limb length inequality, gait disturbance, blood clot, pulmonary embolism, , and other risks. The consent form has been signed. PROCEDURE: After appropriate consent was obtained, the patient was taken to the operating room and placed in supine position. Spinal anesthetic was administered and after confirmation of adequate anesthesia, the patient was placed into the lateral decubitus position with the affected side up. Care was taken to make sure that all pressure points were adequately padded and a [place] hip positioner was utilized for positioning. The hip was prepped and draped in the usual aseptic fashion using a combination of Chloraprep and alcohol. [place] drape was used for the case and the patient received intravenous antibiotics prior to the incision. The incision was created directly over the greater trochanter and carried slightly posteriorly for a posterior approach to the hip. The incision was then deepened down to subcutaneous tissue and fascia angel. Fascia angel was split in line with the incision and split proximally along the fibers of the gluteus venkat. The underlying fibers of the muscle were teased apart using finger dissection and bleeding vessels were picked up and coagulated. Retractor was then placed posteriorly consisting of a blunt [place]. The short external rotators and capsule were exposed and good visualization of the attachment of the external rotators to the femur was established. The short external rotators and capsule were released using electrocautery from their femoral attachments. A hockey stick shaped incision was created in the capsule. Joint fluid and hemarthrosis was evacuated and the patient's hip was internally rotated to expose the fracture site. The femoral neck cut was created approximately 1 cm superior to the lesser trochanter using a reciprocating saw. The femoral head and neck fragment was removed and visualization and palpation of the acetabular vault showed intact hyaline cartilage with no bone exposure or significant degeneration. Attention was then directed back to the proximal femur. Retractors were placed around the proximal femur and box osteotome was used followed by canal finder and trochanteric reamer. Cylindrical reaming was performed. Progressive broaching was then performed starting with a #10 broach and progressing final size, in a position of 10-15 degrees anteversion. [place] anteversion was within 5 degrees of stem position. The final size broach had excellent fit and fill of the patient's metaphysis and diaphysis. Calcar planing was performed. Trial reduction was then performed starting with appropriately sized femoral head and various neck extensions to evaluate stability, limb length equality, and soft tissue tension. Once these parameters were satisfactory, the corresponding final components were then called for. Trial components were removed. The femoral canal was sized for the centralizer and cement plug. Once the cement plug had been inserted distal to the planned length of the femoral component, the canal was pulse lavaged and brushed to remove any unstable bone. It was then dried with a lap sponge. Cement was mixed under vacuum conditions to decrease porosity and inserted into a cement gun. Distal centralizer was placed onto the femoral component with a bit of cement. The cement was allowed to reach a slightly doughy consistency and then the canal was filled retrograde with the cement gun. Thumb pressurization was performed three times. The femoral component was then inserted with the previously determined degree of anteversion. Excess cement was removed before it hardened completely. The femoral head was then impacted onto the [place] taper. Blood and debris were removed from the acetabular socket and the hip was then reduced and checked for stability, limb length and soft tissue tension. These parameters were found to be satisfactory; the wound was then thoroughly irrigated with normal saline. Final hemostasis was obtained using electrocautery and IV tranexamic acid, 1 g given at the time of prepping and draping, and another 1 g given at the time of closure. Closure of the capsule was performed meticulously using #3 Vicryl suture. Four [id number] sutures were placed in the posterior capsule along with repair of the external rotators. The fascia angel was then repaired using combination of #3 Vicryl suture in interrupted fashion and [place] and running fashion. 2-0 Vicryl suture was used for the subcutaneous tissues and 3-0 strata fix for the skin. Dermabond tape was then applied. The patient tolerated the procedure well. There were no complications and the wound bed was dry and there was no need for drain placement. Sterile dressing was then applied and the patient was carefully removed from the operating room table, placed on the stretcher and was taken to the recovery room in stable condition. Sponge and needle counts were correct.
--- NOTE | 2017-04-13 14:47 | XR ---
EXAMINATION TYPE: XR Hip Limited LT DATE OF EXAM: 04/13/2017 COMPARISON: 03/28/2017 HISTORY: Postop TECHNIQUE: Single view FINDINGS: There is a left hip prosthesis. Components appear in anatomic position. IMPRESSION: Left hip prosthesis. No complicating process seen.
[2017-04-13] MEDS: ceFAZolin IN SWFI 2 GM/20 ML SYRINGE IVP SCH ×2 (16:15→23:07)
[2017-04-13 16:27] LABS: Basophils % (A) 0 %; CH 26.9; CHCM 30.8; Eosinophils # (A) 0.2 k/uL (0-0.7); Eosinophils % (A) 2 %; HDW 2.65; HGB 11.7 gm/dL (11.4-16.0); Hypochromasia Moderate; Luc # (Auto) 0.18; Luc % (Auto) 2; Lymphocytes # (A) 0.7 k/uL (1.0-4.8); Lymphocytes % (A) 5 %; MCH 26.3 pg (25.0-35.0); MCHC 30.1 g/dL (31.0-37.0); MCV 87.6 fL (80.0-100.0); Mean Platelet Volume 7.1; Monocytes # (A) 1.1 k/uL (0-1.0); Monocytes % (A) 9 %; Neutrophils # (A) 9.9 k/uL (1.3-7.7); Neutrophils % (A) 82 %; RBC 4.45 m/uL (3.80-5.40); RDW 15.4 % (11.5-15.5); WBC 12.1 k/uL (3.8-10.6); WBC (Perox) 12.41
[2017-04-13] MEDS ORDERED: WARFARIN 5 MG TAB PO ONE (18:00)
[2017-04-13] MEDS: LACTATED RINGERS 1,000 ML IV SCH ×2 (18:18→22:21)
--- NOTE | 2017-04-13 18:20 | P.PN ---
Progress Note - Text Progress Note Date: 04/13/17 DATE OF SERVICE: 04/13/2017 PRESENTING COMPLAINT: Hip fracture HISTORY OF PRESENT ILLNESS: 81-year-old female who fell about 2 weeks ago complaining of pain in her left hip discovered she had a left femoral neck fracture and is now status post left unipolar hemiarthroplasty. INTERVAL HISTORY: 04/13/2017: Patient was seen in the PACU holding area, appears comfortable lying flat not very communicative as she doesn't have her hearing aids in. Vital signs are stable, REVIEW OF SYSTEMS: Unable to assess due to patient's current condition CURRENT MEDICATIONS [place], Lipitor,, hydralazine 50 mg by mouth 3 times a day, Dilaudid, Synthroid 25 g by mouth daily, milk of magnesia, Lopressor 50 by mouth twice a day, ondansetron 4 mg IV push every 8 hours, Senokot S2 tablets by mouth at bedtime. PHYSICAL EXAM VITAL SIGNS: Temperature 98.8, pulse 88, respiratory rate 14, blood pressure 124/66, oxygen saturation 96% on 3 L area GENERAL APPEARANCE: Lying in bed, not in distress. EYES: Pupils equal. Conjunctiva normal. NECK: JVD not raised. Mass not palpable. RESPIRATORY: Respiratory effort normal. Lungs diminished to auscultation. CARDIOVASCULAR: First and second sounds normal. No edema. ABDOMEN: Soft. Liver and spleen not palpable. No tenderness. No mass palpable. PSYCHIATRY: Unable to assess due to patient's current condition INTEGUMENT: Multiple ecchymoses noted to the patient's face left eye, right eye forehead severely ecchymotic. Left hip incision covered with a dry surgical dressing no drainage noted. INVESTIGATIONS: White blood cell count 12.1, ASSESSMENT: -Acute femoral neck fracture from a fall about 10 days ago. -Excessive bruising on the left side of the face from fall recently. -Atrial flutter fibrillation chronic persistent not a candidate for anticoagulation. Patient bruises very easily. -Alzheimer's dementia with psychoses. -Chronic obstructive pulmonary disease. -Hyperlipidemia. -Essential hypertension. 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 -Chronic kidney disease, stage IV probably from hypertensive nephrosclerosis. -Chronic hypoxic respiratory failure on 3 L of oxygen. -Hypothyroidism. -Acute urinary tract infection -Chronic hypoxic respiratory failure probably from underlying chronic obstructive pulmonary disease. -Patient CODE STATUS DO NOT RESUSCITATE as discussed with the daughter. PLAN: Continue IV ceftriaxone for patient's UTI. Continue current medication and treatment plan, Continue supportive care in the postoperative period. We will continue to monitor closely. IT SALES EXECUTIVE statement: Patient was seen and examined by nurse practitioner Juhi Richard and all elements of the case discussed with attending Dr. Diehl
[2017-04-13] MEDS: HYDROcodone/APAP 5-325MG 1 EACH TAB PO PRN (18:23)
[2017-04-13] MEDS: METOPROLOL TARTRATE 50 MG TAB PO SCH (20:22)
[2017-04-13] MEDS: ATORVASTATIN 10 MG TAB PO SCH (20:22)
[2017-04-13] MEDS: SENNOSIDES-DOCUSATE SODIUM 1 EACH TAB PO SCH (20:23)
[2017-04-13] MEDS: cefTRIAXone IN SWFI 1,000 MG/10 ML SYRINGE IVP SCH (20:53)
--- NOTE | 2017-04-13 23:02 | PN ---
PROGRESS NOTE DATE OF SERVICE: 04/13/17 ATTENDING NOTE: The patient was seen and examined by me. I discussed with nurse practitioner Ms. Richard. The patient is status post left hip hemiarthroplasty. Tired. Lying in bed. EXAM: Lungs decreased breath sounds. Cardiovascular heart sounds irregular. ABDOMEN: Soft. White count 12.1. Urine culture growing gram-negative bacilli. ASSESSMENT: 1. Status post left hip surgery. 2. . PLAN: Continue current medication and treatment plan including antibiotics. MMODL / IJN: [id number] /
[2017-04-14] MEDS: HYDROcodone/APAP 5-325MG 1 EACH TAB PO PRN ×3 (04:17→17:25)
[2017-04-14] MEDS: LEVOTHYROXINE 25 MCG TAB PO SCH (04:27)
[2017-04-14 07:36] LABS: INR 1.4 (<1.2); Prothrombin Time 13.9 sec (9.0-12.0)
[2017-04-14] MEDS: FLUTICASONE 50MCG/SPRAY NASAL 16GM EA NOSTRIL SCH (08:50)
[2017-04-14] MEDS: METOPROLOL TARTRATE 50 MG TAB PO SCH ×2 (08:51→21:16)
[2017-04-14] MEDS: hydrALAZINE HCL 50 MG TAB PO SCH ×3 (08:51→22:56)
--- NOTE | 2017-04-14 10:32 | PN ---
PROGRESS NOTE Mrs. Sawyer has her hip surgery uneventfully. She is resting comfortably without symptoms. Blood pressure today is 118/70, pulse rate is about 90, irregular. No JVD. S1-S2 heard normally. Short systolic murmur noted. Regular rate and rhythm noted. Lungs reveal improved air entry. Abdomen is soft. Lower extremity exam was deferred. Plan is decrease IV fluids to 75 mL/hour. Continue all other medications including beta blockers. I will continue to see her during her hospitalization as needed. MMODL / IJN: [id number] /
[2017-04-14] MEDS: LACTATED RINGERS 1,000 ML IV SCH (10:35)
--- NOTE | 2017-04-14 10:55 | P.PN ---
Subjective Progress Note Date: 04/14/17 Principal diagnosis: Femoral neck fracture left hip. Status post hemiarthroplasty left hip. This is an 81-year-old female who is status post hemiarthroplasty of the left hip for femoral neck fracture. She is doing well from an orthopedic standpoint. She has no new complaints or concerns today. Vital signs are stable. Objective - Vital Signs Vital signs: Vital Signs Temp 98.1 F 04/14/17 08:47 Pulse 97 04/14/17 08:47 Resp 16 04/14/17 08:47 BP 114/63 04/14/17 08:47 Pulse Ox 92 L 04/14/17 08:47 Intake & Output 04/13/17 04/14/17 04/14/17 18:59 06:59 18:59 Intake Total 551 1600 720 Output Total 675 325 Balance -124 1275 720 Weight 75.296 kg Intake: IV 551 Intake, IV Titration 1600 Amount Lactated Ringers 1,000 ml 1600 @ 100 mls/hr IV .Q10H DEEPTI Rx#:[id number] Oral 720 Output: Urine 525 325 Estimated Blood Loss 150 Other: Voiding Method Indwelling Catheter Indwelling Catheter Indwelling Catheter - Exam This is a pleasant 81-year-old female in no acute distress. She is alert and oriented at this time. She is significantly hearing-impaired with no hearing in place. Her daughter is present at bedside. Exam of the left hip reveals that the dressing is clean, dry and intact. She has full foot and ankle motion without difficulty or pain. Neurovascular status to the lower extremity is intact. - Labs CBC & Chem 7: 04/13/17 16:02 04/12/17 08:09 Labs: Abnormal Lab Results - Last 24 Hours (Table) 04/13/17 04/14/17 Range/Units 16:02 06:55 WBC 12.1 H (3.8-10.6) k/uL MCHC 30.1 L (31.0-37.0) g/dL Neutrophils # 9.9 H (1.3-7.7) k/uL Lymphocytes # 0.7 L (1.0-4.8) k/uL Monocytes # 1.1 H (0-1.0) k/uL PT 13.9 H (9.0-12.0) sec INR 1.4 H (<1.2) Microbiology - Last 24 Hours (Table) 04/12/17 11:30 Urine Culture - Preliminary Urine,Catheterized Gram Neg Bacilli Assessment and Plan (1) Fracture of femoral neck, left Current Visit: Yes Status: Acute Code(s): S72.002A - FRACTURE OF UNSP PART OF NECK OF LEFT FEMUR, INIT SNOMED Code(s): 4244117 (2) Fracture of hip Current Visit: Yes Status: Acute Code(s): S72.009A - FRACTURE OF UNSP PART OF NECK OF UNSP FEMUR, INIT SNOMED Code(s): 825098637 Plan: The clinical and x-ray findings are discussed with the patient and her daughter. We will continue physical therapy. We're planning discharge to inpatient rehab Saturday versus Saturday if cleared medically.
[2017-04-14] MEDS: SODIUM CHLORIDE 0.9% 1,000 ML IV SCH ×2 (17:25→22:56)
[2017-04-14] MEDS ORDERED: WARFARIN 5 MG TAB PO ONE (18:00)
--- NOTE | 2017-04-14 18:35 | PN ---
PROGRESS NOTE DATE OF SERVICE: 04/14/17 The patient is seen and examined by me. I discussed with my nurse practitioner, Ms. Richard. The patient is status post left hip hemiarthroplasty, awake, talking. The patient did throw up once. Some pain at the operative site noted at the bedside. PHYSICAL EXAMINATION: Temperature 98.1, pulse 92, respiration 17, blood pressure 95/56. Lying in bed, awake. LUNGS: Decreased breath sounds. Cardiovascular first and second sounds irregular. Facial bruising present on admission. INVESTIGATIONS: INR 1.4. Urine culture, gram-negative bacilli. ASSESSMENT: 1. Status post left hip surgery. 2. Acute urinary tract infection from E coli. Care was discussed with the daughter at the bedside. The patient is already on IV ceftriaxone. Follow. MMODL / IJN: [id number] /
--- NOTE | 2017-04-14 19:54 | P.PN ---
Progress Note - Text Progress Note Date: 04/14/17 DATE OF SERVICE: 04/14/2017 PRESENTING COMPLAINT: Hip fracture HISTORY OF PRESENT ILLNESS: 81-year-old female who fell about 2 weeks ago complaining of pain in her left hip discovered she had a left femoral neck fracture and is now status post left hip hemiarthroplasty. INTERVAL HISTORY: 04/14/2017: Patient seen in follow-up, has some difficulty communicating and she's continues to not be able to hear hearing aid is missing. Left leg hurts her, pain medications do seem to work but causing nausea. Is tolerating a little bit of her diet, has not been out of bed yet. Family at the bedside. 04/13/2017: Patient was seen in the PACU holding area, appears comfortable lying flat not very communicative as she doesn't have her hearing aids in. Vital signs are stable, Vomited once, has some pain at the operative site. REVIEW OF SYSTEMS: Unable to assess patient is very hard of hearing and hearing answer not currently in CURRENT MEDICATIONS [place], Lipitor,, hydralazine 50 mg by mouth 3 times a day, Dilaudid, Synthroid 25 g by mouth daily, milk of magnesia, Lopressor 50 by mouth twice a day, ondansetron 4 mg IV push every 8 hours, Senokot S2 tablets by mouth at bedtime. PHYSICAL EXAM VITAL SIGNS: Temperature 98.1, pulse 97, respirations 16, blood pressure 114/63, oxygen saturation 92% on 2 L. GENERAL APPEARANCE: Lying in bed, not in distress. EYES: Pupils equal. Conjunctiva normal. NECK: JVD not raised. Mass not palpable. RESPIRATORY: Respiratory effort normal. Lungs diminished to auscultation. CARDIOVASCULAR: First and second sounds normal. No edema. ABDOMEN: Soft. Liver and spleen not palpable. No tenderness. No mass palpable. PSYCHIATRY: Unable to assess due to patient's current condition INTEGUMENT: Multiple ecchymoses noted to the patient's face left eye, right eye forehead severely ecchymotic. Left hip incision covered with a dry surgical dressing no drainage noted. INVESTIGATIONS: INR 1.4 ASSESSMENT: -Acute femoral neck fracture from a fall about 10 days ago. -Acute urinary tract infection from E. coli -Excessive bruising on the left side of the face from fall recently. -Atrial flutter fibrillation chronic persistent not a candidate for anticoagulation. Patient bruises very easily. -Alzheimer's dementia with psychoses. -Chronic obstructive pulmonary disease. -Hyperlipidemia. -Essential hypertension. 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 -Chronic kidney disease, stage IV probably from hypertensive nephrosclerosis. -Chronic hypoxic respiratory failure on 3 L of oxygen. -Hypothyroidism. -Acute urinary tract infection -Chronic hypoxic respiratory failure probably from underlying chronic obstructive pulmonary disease. -Patient CODE STATUS DO NOT RESUSCITATE as discussed with the daughter. PLAN: Continue IV ceftriaxone for patient's UTI. Continue current medication and treatment plan, Continue supportive care in the postoperative period. We will continue to monitor closely. [employer] P[employer] statement: Patient was seen and examined by nurse practitioner Juhi Richard and all elements of the case discussed with attending Dr. Diehl
[2017-04-14] MEDS: cefTRIAXone IN SWFI 1,000 MG/10 ML SYRINGE IVP SCH (21:16)
[2017-04-14] MEDS: ATORVASTATIN 10 MG TAB PO SCH (21:16)
[2017-04-14] MEDS: SENNOSIDES-DOCUSATE SODIUM 1 EACH TAB PO SCH (21:17)
[2017-04-15] MEDS: LEVOTHYROXINE 25 MCG TAB PO SCH (05:31)
[2017-04-15 07:07] LABS: Calcium 10.2 mg/dL (8.4-10.2); Potassium 3.1 mmol/L (3.5-5.1)
[2017-04-15 07:35] LABS: Basophils % (A) 0 %; CH 26.8; Eosinophils # (A) 0.1 k/uL (0-0.7); Eosinophils % (A) 1 %; HCT 31.9 % (34.0-46.0); HDW 2.52; Hypochromasia Marked; Luc # (Auto) 0.15; Luc % (Auto) 2; Lymphocytes # (A) 0.5 k/uL (1.0-4.8); Lymphocytes % (A) 7 %; MCH 26.3 pg (25.0-35.0); MCHC 29.3 g/dL (31.0-37.0); MCV 89.6 fL (80.0-100.0); Monocytes # (A) 0.4 k/uL (0-1.0); Monocytes % (A) 5 %; Neutrophils % (A) 84 %; RBC 3.56 m/uL (3.80-5.40); RDW 15.4 % (11.5-15.5); WBC 7.2 k/uL (3.8-10.6); WBC (Perox) 7.14
[2017-04-15 07:43] LABS: HGB 9.3 gm/dL (11.4-16.0)
--- NOTE | 2017-04-15 07:52 | P.PN ---
Subjective Progress Note Date: 04/15/17 Principal diagnosis: Femoral neck fracture left hip. Status post hemiarthroplasty left hip. This is an 81-year-old female who is status post hemiarthroplasty of the left hip for femoral neck fracture. She is doing well from an orthopedic standpoint. She has no new complaints or concerns today. Vital signs are stable. Objective - Vital Signs Vital signs: Vital Signs Temp 97.7 F 04/15/17 01:51 Pulse 93 04/15/17 01:51 Resp 16 04/15/17 01:51 BP 129/73 04/15/17 01:51 Pulse Ox 98 04/15/17 01:51 Intake & Output 04/14/17 04/15/17 04/15/17 18:59 06:59 18:59 Intake Total 1360 Output Total 325 Balance 1035 Weight 75.296 kg Intake: Intake, IV Titration 400 Amount Sodium Chloride 0.9% 1, 400 000 ml @ 75 mls/hr IV . [id number] Rx#:[id number] Oral 960 Output: Urine 325 Other: Voiding Method Indwelling Catheter Incontinent # Voids 1 - Exam This is a pleasant 81-year-old female in no acute distress. She is alert and oriented at this time. She is significantly hearing-impaired with no hearing in place. Exam of the left hip reveals that the dressing is clean, dry and intact. She has full foot and ankle motion without difficulty or pain. Neurovascular status to the lower extremity is intact. - Labs CBC & Chem 7: 04/15/17 06:33 04/15/17 06:33 Labs: Abnormal Lab Results - Last 24 Hours (Table) 04/15/17 04/15/17 Range/Units 06:33 06:33 RBC 3.56 L (3.80-5.40) m/uL Hgb 9.3 L D (11.4-16.0) gm/dL Hct 31.9 L (34.0-46.0) % MCHC 29.3 L (31.0-37.0) g/dL Lymphocytes # 0.5 L (1.0-4.8) k/uL Sodium 133 L (137-145) mmol/L Potassium 3.1 L (3.5-5.1) mmol/L Chloride 94 L (98-107) mmol/L Carbon Dioxide 33 H (22-30) mmol/L BUN 41 H (7-17) mg/dL Creatinine 1.60 H (0.52-1.04) mg/dL Assessment and Plan (1) Fracture of femoral neck, left Current Visit: Yes Status: Acute Code(s): S72.002A - FRACTURE OF UNSP PART OF NECK OF LEFT FEMUR, INIT SNOMED Code(s): 8307194 (2) Fracture of hip Current Visit: Yes Status: Acute Code(s): S72.009A - FRACTURE OF UNSP PART OF NECK OF UNSP FEMUR, INIT SNOMED Code(s): 384359310
[2017-04-15] MEDS: METOPROLOL TARTRATE 50 MG TAB PO SCH ×2 (09:21→22:11)
[2017-04-15] MEDS: hydrALAZINE HCL 50 MG TAB PO SCH ×3 (09:22→22:12)
[2017-04-15] MEDS: FLUTICASONE 50MCG/SPRAY NASAL 16GM EA NOSTRIL SCH (09:22)
[2017-04-15] MEDS ORDERED: Potassium Replacement Protocol 1 EACH MISC MISCELLANE PRN (10:31)
[2017-04-15] MEDS: POTASSIUM CHLORIDE ER 20 MEQ TAB.ER PO SCH ×2 (11:35→13:19)
[2017-04-15] MEDS: SODIUM CHLORIDE 0.9% 1,000 ML IV SCH (15:50)
--- NOTE | 2017-04-15 16:28 | P.DS ---
Providers Date of admission: 04/12/17 10:50 Expected date of discharge: 04/15/17 Attending physician: Martinez Tolliver Consults: 04/12/17 10:49 Consult Physician Urgent Consulting Provider: Tony Diehl Consult Reason/Comments: Medical clearance for surgery Do you want consulting provider notified?: Already Contacted Primary care physician: Howard Banda - Discharge Diagnosis(es) (1) Fracture of femoral neck, left Current Visit: Yes Status: Acute (2) Fracture of hip Current Visit: Yes Status: Acute Hospital Course: This is an 81-year-old female admitted on 04/12/17 with a femoral neck fracture of the left hip. There is suspicion that her fracture was old. She has had a couple of falls within the last month. She was admitted to our service for surgical intervention and care. The patient was taken to surgery on 04/13/17 for hemiarthroplasty of the left hip. The procedure was performed without complication or sequela. She is doing well on post op day #2 and is stable for discharge. The patient is [facility] to [facility] in stable condition. Please see med rec for accurate list of home meds. Patient Condition at Discharge: Stable Plan - Discharge Summary Discharge Rx Participant: No New Discharge Prescriptions: New HYDROcodone/APAP 5-325MG [[place] 5-325] 1 - 2 each PO Q4-6H PRN #90 tab PRN Reason: Pain Sennosides-Docusate Sodium [Senokot-S] 1 tab PO BID #60 tablet Warfarin [Coumadin] 2.5 mg PO DAILY #30 tab Magnesium Hydroxide [Milk of Magnesia Concentrate] 2,400 mg PO DAILY PRN ml PRN Reason: Constipation Cefuroxime Axetil [Ceftin] 500 mg PO DAILY #10 tab Continue Levothyroxine Sodium [Synthroid] 25 mcg PO DAILY Dicyclomine HCl 10 mg PO Q6H Allopurinol [Zyloprim] 300 mg PO DAILY Fluticasone Nasal [place] [Flonase Nasal [place]] 1 spray EA NOSTRIL DAILY Acetaminophen Tab [Tylenol] 650 mg PO Q6HR PRN tab PRN Reason: Mild Pain Or Fever > 100.5 ALPRAZolam [Xanax] 0.25 mg PO BID PRN PRN Reason: Anxiety guaiFENesin [guaiFENesin Oral Solution] 200 mg PO Q4HR PRN PRN Reason: Cough Loratadine [Claritin] 10 mg PO DAILY PRN PRN Reason: Allergy Symptoms Albuterol Nebulized [Ventolin Nebulized] 2.5 mg INHALATION RT-Q4H PRN PRN Reason: COPD hydrALAZINE HCL [Apresoline] 50 mg PO TID Ranitidine HCl [Zantac] 150 mg PO BID Potassium Chloride [Klor-Con 20] 20 meq PO BID Furosemide [Lasix] 40 mg PO BID prednisoLONE ACETATE [Pred Forte 1%] 2 drop LEFT EYE DAILY Lactose-Reduced Food [Ensure Plus] 1 can PO BID Metoprolol Tartrate [Lopressor] 50 mg PO DAILY Metolazone [Zaroxolyn] 5 mg PO MOTH Buprenorphine [Butrans 10 MCG/HOUR] 1 patch TRANSDERM TU Atorvastatin [Lipitor] 10 mg PO HS Clotrimazole/Betamethasone Dip [Lotrisone Cream] 1 applic TOPICAL BID Discontinued HYDROcodone/APAP 5-325MG [[place] 5-325] 1 tab PO Q4HR PRN PRN Reason: Pain No Action Ergocalciferol (Vitamin D2) [Vitamin D2] 50,000 unit PO Q90D Discharge Medication List Allopurinol [Zyloprim] 300 mg PO DAILY 02/16/17 [History] Dicyclomine HCl 10 mg PO Q6H 02/16/17 [History] Fluticasone Nasal [place] [Flonase Nasal [place]] 1 spray EA NOSTRIL DAILY 02/16/17 [History] Levothyroxine Sodium [Synthroid] 25 mcg PO DAILY 02/16/17 [History] Acetaminophen Tab [Tylenol] 650 mg PO Q6HR PRN tab 02/20/17 [Rx] ALPRAZolam [Xanax] 0.25 mg PO BID PRN 04/12/17 [History] Albuterol Nebulized [Ventolin Nebulized] 2.5 mg INHALATION RT-Q4H PRN 04/12/17 [ History] Atorvastatin [Lipitor] 10 mg PO HS 04/12/17 [History] Buprenorphine [Butrans 10 MCG/HOUR] 1 patch TRANSDERM TU 04/12/17 [History] Clotrimazole/Betamethasone Dip [Lotrisone Cream] 1 applic TOPICAL BID 04/12/17 [ History] Ergocalciferol (Vitamin D2) [Vitamin D2] 50,000 unit PO Q90D 04/12/17 [History] Furosemide [Lasix] 40 mg PO BID 04/12/17 [History] Lactose-Reduced Food [Ensure Plus] 1 can PO BID 04/12/17 [History] Loratadine [Claritin] 10 mg PO DAILY PRN 04/12/17 [History] Metolazone [Zaroxolyn] 5 mg PO MOTH 04/12/17 [History] Metoprolol Tartrate [Lopressor] 50 mg PO DAILY 04/12/17 [History] Potassium Chloride [Klor-Con 20] 20 meq PO BID 04/12/17 [History] Ranitidine HCl [Zantac] 150 mg PO BID 04/12/17 [History] guaiFENesin [guaiFENesin Oral Solution] 200 mg PO Q4HR PRN 04/12/17 [History] hydrALAZINE HCL [Apresoline] 50 mg PO TID 04/12/17 [History] prednisoLONE ACETATE [Pred Forte 1%] 2 drop LEFT EYE DAILY 04/12/17 [History] Cefuroxime Axetil [Ceftin] 500 mg PO DAILY #10 tab 04/15/17 [Rx] HYDROcodone/APAP 5-325MG [[place] 5-325] 1 - 2 each PO Q4-6H PRN #90 tab 04/15/17 [Rx] Magnesium Hydroxide [Milk of Magnesia Concentrate] 2,400 mg PO DAILY PRN ml [Rx] Sennosides-Docusate Sodium [Senokot-S] 1 tab PO BID #60 tablet 04/15/17 [Rx] Warfarin [Coumadin] 2.5 mg PO DAILY #30 tab 04/15/17 [Rx] Follow up Appointment(s)/Referral(s): Howard Banda DO [Primary Care Provider] - As Needed [facility] [place], [NON-STAFF] - As Needed Martinez Tolliver MD [STAFF PHYSICIAN] - 4 Weeks Ambulatory/Diagnostic Orders: Prothrombin Time INR [LAB.AMB] Location: Determined By Patient Activity/Diet/Wound Care/Special Instructions: May bear weight as tolerated with walker. May shower if no drainage from incision. Maintain hip precautions. Discharge Disposition: TRANSFER TO SNF/ECF
--- NOTE | 2017-04-15 17:31 | PN ---
PROGRESS NOTE DATE OF SERVICE: April 15, 2017. ATTENDING NOTE: This patient was seen and examined by me. I discussed with nurse practitioner, Ms. Richard. The patient is lying in bed, did tolerate some diet. Pain is controlled. PHYSICAL EXAMINATION: Temperature 98.3. Pulse 94, respiration 16, blood pressure 117/54. Pulse ox 97% on 3 L. Lying in bed, awake, appears comfortable. Residual bruising on the left side of the face present. Lungs decreased breath sounds. Cardiovascular first and second sounds normal. ABDOMEN: Soft. The patient is answering following commands. INVESTIGATIONS: Hemoglobin 9.3, white count 7.2, potassium 3.1, repeat 3.7, creatinine 1.60. Urine culture is growing E coli that is ESBL. Cultures are pending. Care was discussed with the daughter at the bedside. The patient is doing rather good for what she has gone through. Will DC the IV fluids. MMODL / IJN: [id number] /
[2017-04-15] MEDS: HYDROcodone/APAP 5-325MG 1 EACH TAB PO PRN (17:51)
[2017-04-15] MEDS ORDERED: WARFARIN 5 MG TAB PO ONE (18:00)
[2017-04-15] MEDS ORDERED: POTASSIUM CHLORIDE ER 20 MEQ TAB.ER PO STA (18:54)
--- NOTE | 2017-04-15 19:03 | P.PN ---
Progress Note - Text Progress Note Date: 04/15/17 DATE OF SERVICE: 04/15/2017 PRESENTING COMPLAINT: Hip fracture HISTORY OF PRESENT ILLNESS: 81-year-old female who fell about 2 weeks ago complaining of pain in her left hip discovered she had a left femoral neck fracture and is now status post left hip hemiarthroplasty. INTERVAL HISTORY: 04/15/2017: Patient seen in follow-up continues to have difficulty Indicating due to her missing hearing aid. Left leg continues to pain her pain medication does help. No further nausea. Tolerating about 20-30% of her diet work with physical therapy today. Family at the bedside. Tentative plan for discharge today. 04/14/2017: Patient seen in follow-up, has some difficulty communicating and she's continues to not be able to hear hearing aid is missing. Left leg hurts her, pain medications do seem to work but causing nausea. Is tolerating a little bit of her diet, has not been out of bed yet. Family at the bedside. 04/13/2017: Patient was seen in the PACU holding area, appears comfortable lying flat not very communicative as she doesn't have her hearing aids in. Vital signs are stable, Vomited once, has some pain at the operative site. REVIEW OF SYSTEMS: Unable to assess patient is very hard of hearing and hearing answer not currently in CURRENT MEDICATIONS [place], Lipitor,, hydralazine 50 mg by mouth 3 times a day, Dilaudid, Synthroid 25 g by mouth daily, milk of magnesia, Lopressor 50 by mouth twice a day, ondansetron 4 mg IV push every 8 hours, Senokot S2 tablets by mouth at bedtime. PHYSICAL EXAM VITAL SIGNS: Temperature 98.3, pulse 94, respiratory rate 16, blood pressure 117/64, oxygen saturation 97% on 3 L. GENERAL APPEARANCE: Lying in bed, not in distress. EYES: Pupils equal. Conjunctiva normal. NECK: JVD not raised. Mass not palpable. RESPIRATORY: Respiratory effort normal. Lungs diminished to auscultation. CARDIOVASCULAR: First and second sounds normal. No edema. ABDOMEN: Soft. Liver and spleen not palpable. No tenderness. No mass palpable. PSYCHIATRY: Awake and alert, can answer some questions that are written down. INTEGUMENT: Multiple ecchymoses noted to the patient's face left eye, right eye forehead severely ecchymotic. Left hip incision covered with a dry surgical dressing no drainage noted. INVESTIGATIONS: Hemoglobin 9.3, sodium 133, potassium 3.1, BUN 41, creatinine 1.60, ASSESSMENT: -Acute femoral neck fracture from a fall about 10 days ago. -Acute urinary tract infection from E. coli -Excessive bruising on the left side of the face from fall recently. -Atrial flutter fibrillation chronic persistent not a candidate for anticoagulation. Patient bruises very easily. -Alzheimer's dementia with psychoses. -Chronic obstructive pulmonary disease. -Hyperlipidemia. -Essential hypertension. 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 -Chronic kidney disease, stage IV probably from hypertensive nephrosclerosis. -Chronic hypoxic respiratory failure on 3 L of oxygen. -Hypothyroidism. -Acute urinary tract infection -Chronic hypoxic respiratory failure probably from underlying chronic obstructive pulmonary disease. -Patient CODE STATUS DO NOT RESUSCITATE as discussed with the daughter. PLAN: Switched IV ceftriaxone to Ceftin 500 mg daily for 10 days for patient's UTI, continue to await sensitivities. Tentative discharge plan for tomorrow to [facility]. LOTUS NOTES ADMINISTRATOR statement: Patient was seen and examined by nurse practitioner Juhi Richard and all elements of the case discussed with attending Dr. Diehl
[2017-04-15] MEDS: cefTRIAXone IN SWFI 1,000 MG/10 ML SYRINGE IVP SCH (21:57)
[2017-04-15] MEDS: SENNOSIDES-DOCUSATE SODIUM 1 EACH TAB PO SCH (22:04)
[2017-04-15] MEDS: ATORVASTATIN 10 MG TAB PO SCH (22:05)
[2017-04-16] MEDS: HYDROcodone/APAP 5-325MG 1 EACH TAB PO PRN ×3 (01:23→15:32)
[2017-04-16] MEDS: LEVOTHYROXINE 25 MCG TAB PO SCH (06:17)
[2017-04-16 07:47] LABS: Calcium 10.5 mg/dL (8.4-10.2)
[2017-04-16] MEDS: hydrALAZINE HCL 50 MG TAB PO SCH ×2 (08:30→15:32)
[2017-04-16] MEDS: FLUTICASONE 50MCG/SPRAY NASAL 16GM EA NOSTRIL SCH (08:30)
[2017-04-16] MEDS: METOPROLOL TARTRATE 50 MG TAB PO SCH (08:30)
[2017-04-16] MEDS ORDERED: NITROFURANTOIN MONOHYD/M-CRYST 100 MG CAP PO SCH (12:00)
--- NOTE | 2017-04-16 12:53 | PN ---
PROGRESS NOTE DATE OF SERVICE: 04/16/2017 PRESENTING COMPLAINT: Hip surgery. INTERVAL HISTORY: Patient is status post hip surgery, is lying in bed. Daughter is at the bedside. Patient tolerated most of her breakfast. Pain is reasonably controlled. No new issues. REVIEW OF SYSTEMS: Review of systems done for constitutional, cardiovascular, GI, pulmonary; relevant findings as above. CURRENT MEDICATIONS: Current medications are reviewed that include IV ceftriaxone. PHYSICAL EXAMINATION: On examination, temperature 98.3, pulse 98, respiration 14, blood pressure 100/68, pulse ox 95% on 3 L. GENERAL APPEARANCE: Lying in bed, awake. EYES: Pupils equal. Conjunctivae normal. FACE: Bruising on the left side of the face. RESPIRATOR: Effort normal. LUNGS: Decreased breath sounds. CARDIOVASCULAR: Heart sounds irregular. No edema. ABDOMEN: Soft, nontender. Liver and spleen not palpable. PSYCHIATRY: Awake, answering questions. NEUROLOGICAL: Patient has got a nasal tone to her voice at the baseline. INVESTIGATIONS: Potassium 4. BUN 49, creatinine 1.73. Urine cultures growing ESBL. ASSESSMENT: 1. Acute left femoral neck fracture followed by hemiarthroplasty. 2. Acute urinary tract infection from ESBL/Escherichia coli. 3. Extensive bruising on the left side of the face, slowly improving from a fall recently. 4. Persistent atrial flutter, fibrillation. 5. Alzheimer's dementia, late onset type. 6. Chronic obstructive pulmonary disease. 7. Hyperlipidemia. 8. Essential hypertension. 9. 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 10.Chronic kidney disease stage 4 probably from hypertensive nephrosclerosis. 11.Chronic hypoxic respiratory failure on 3 L of oxygen. 12.Hypothyroidism. 13.CODE STATUS: DNR. The patient will be treated for the ESBL with nitrofurantoin 100 mg p.o. b.i.d. for next seven days. MMODL / IJN: [id number] /
[2017-04-16 15:29] VITALS: RESP 16; TEMP 98.7
[2017-04-16 19:46] VITALS: BP 138/69; PULSE 104
== END 2017-04-16 19:49 | DRG 470 ==
LOC: EC 07:50 → 3SUR 10:50
PROVIDERS: ADMIT Orthopaedic Surgery; ATTEND Orthopaedic Surgery
PROC: 0SRS019 Replacement of Left Hip Joint, Femoral Surface with Metal Synthetic Substitute, Cemented, Open Approach (ICD-10-PCS; principal; 2017-04-12)
DX: S72.002A Fracture of unspecified part of neck of left femur, initial encounter for closed fracture (principal); J96.11 Chronic respiratory failure with hypoxia; N18.4 Chronic kidney disease, stage 4 (severe); I48.92 Unspecified atrial flutter; I13.0 Hypertensive heart and chronic kidney disease with heart failure and stage 1 through stage 4 chronic kidney disease, or unspecified chronic kidney disease; I50.9 Heart failure, unspecified; M25.00 Hemarthrosis, unspecified joint; N39.0 Urinary tract infection, site not specified; E83.42 Hypomagnesemia; G30.1 Alzheimer's disease with late onset; F02.80 Dementia in other diseases classified elsewhere, unspecified severity, without behavioral disturbance, psychotic disturbance, mood disturbance, and anxiety; B96.20 Unspecified Escherichia coli [E. coli] as the cause of diseases classified elsewhere; W19.XXXA Unspecified fall, initial encounter; E03.9 Hypothyroidism, unspecified; E78.5 Hyperlipidemia, unspecified; F06.30 Mood disorder due to known physiological condition, unspecified; H40.9 Unspecified glaucoma; H54.61 Unqualified visual loss, right eye, normal vision left eye; H91.91 Unspecified hearing loss, right ear; I48.91 Unspecified atrial fibrillation; J44.9 Chronic obstructive pulmonary disease, unspecified; K21.9 Gastro-esophageal reflux disease without esophagitis; S00.83XA Contusion of other part of head, initial encounter; Z66 Do not resuscitate; Z79.899 Other long term (current) drug therapy; Z80.0 Family history of malignant neoplasm of digestive organs; Z87.730 Personal history of (corrected) cleft lip and palate; I25.2 Old myocardial infarction; Z87.891 Personal history of nicotine dependence; Z91.81 History of falling; Z99.81 Dependence on supplemental oxygen; Z16.12 Extended spectrum beta lactamase (ESBL) resistance
CPT/HCPCS: 36415; 71010; 72192; 73501; 80048; 80053; 81001; 82550; 82553; 83735; 84132; 85025; 85610; 85730; 87077; 87086; 87186; 88305; 88311; 93005; 94760; 96360; 96365; 96375; 99285

== ENCOUNTER → 2017-09-25 | Outpatient (CLI) | payer MEDICARE ==
--- NOTE | 2017-09-25 12:09 | FL ---
EXAMINATION TYPE: FL barium swallow w video DATE OF EXAM: 09/25/2017 MODIFIED SWALLOW / DEGLUTITION STUDY CLINICAL HISTORY: Dysphagia with wet cough and choking sensation. Abnormal weight loss. TECHNIQUE: Deglutition study is performed utilizing cracker, nectar, honey, and thin barium. 1 minut e and 54 seconds of fluoroscopy time was utilized with 0 images saved as the exam was video recorded. COMPARISON: None. FINDINGS: The oral and pharyngeal phases show satisfactory initiation and propagation with all modali ties tested. Normal mastication is seen with solid modalities tested within the limitations of this edentulous patient. Persistent large or penetration is seen with the thin barium consistency, deep a nd the second trial. This resolves with the chin tuck maneuver. There is no evidence of aspiration wi th any modality tested. Vallecular retention with solid consistency and vallecular/piriform retentio n with remaining administered consistencies was then applied. No significant pharyngeal residue was a ppreciated. IMPRESSION: 1. Persistent laryngeal penetration with the thin barium consistency resolved with the chin tuck charley uver. 2. Vallecular and piriform retention throughout the examination. Please refer to speech therapist not es for further details if necessary.
== END | disposition home or self-care (01) ==
LOC: RADFLMAIN 10:19
PROVIDERS: ATTEND Family Medicine
DX: R93.8 Abnormal findings on diagnostic imaging of other specified body structures (principal)
CPT/HCPCS: 74230

== ENCOUNTER 2017-09-29 16:58 | Inpatient (IN) | payer MEDICARE ==
--- NOTE | 2017-09-29 17:16 | ED ---
Fever HPI - General Stated Complaint: Sepsis Time Seen by Provider: 09/29/17 17:07 Source: patient Limitations: altered mental status - History of Present Illness Initial Comments: This patient is an 81-year-old woman [facility] after she had developed fever. It is reported that the patient also was appearing agitated, and that her heart rate was elevated. Here the patient is not able to give much in the way of useful history. I suspect that there is some underlying dementia and that the patient is delirious as well. She is denying pain. She denies dyspnea. Otherwise, patient is not really answering questions. MD Complaint: fever -: unknown - Related Data Home Medications Medication Instructions Recorded Confirmed Allopurinol [Zyloprim] 300 mg PO DAILY 02/16/17 04/12/17 Dicyclomine HCl 10 mg PO Q6H 02/16/17 04/12/17 Fluticasone Nasal [place] [Flonase 1 spray EA NOSTRIL DAILY 02/16/17 04/12/17 Nasal [place]] Levothyroxine Sodium [Synthroid] 25 mcg PO DAILY 02/16/17 04/12/17 ALPRAZolam [Xanax] 0.25 mg PO BID PRN 04/12/17 04/12/17 Albuterol Nebulized [Ventolin 2.5 mg INHALATION RT-Q4H PRN 04/12/17 04/12/17 Nebulized] Atorvastatin [Lipitor] 10 mg PO HS 04/12/17 04/12/17 Buprenorphine [Butrans 10 MCG/HOUR] 1 patch TRANSDERM TU 04/12/17 04/12/17 Clotrimazole/Betamethasone Dip 1 applic TOPICAL BID 04/12/17 04/12/17 [Lotrisone Cream] Ergocalciferol (Vitamin D2) 50,000 unit PO Q90D 04/12/17 04/12/17 [Vitamin D2] Furosemide [Lasix] 40 mg PO BID 04/12/17 04/12/17 Lactose-Reduced Food [Ensure Plus] 1 can PO BID 04/12/17 04/12/17 Loratadine [Claritin] 10 mg PO DAILY PRN 04/12/17 04/12/17 Metolazone [Zaroxolyn] 5 mg PO MOTH 04/12/17 04/12/17 Metoprolol Tartrate [Lopressor] 50 mg PO DAILY 04/12/17 04/12/17 Potassium Chloride [Klor-Con 20] 20 meq PO BID 04/12/17 04/12/17 Ranitidine HCl [Zantac] 150 mg PO BID 04/12/17 04/12/17 guaiFENesin [guaiFENesin Oral 200 mg PO Q4HR PRN 04/12/17 04/12/17 Solution] hydrALAZINE HCL [Apresoline] 50 mg PO TID 04/12/17 04/12/17 prednisoLONE ACETATE [Pred Forte 2 drop LEFT EYE DAILY 04/12/17 04/12/17 1%] Previous Rx's Medication Instructions Recorded Acetaminophen Tab [Tylenol] 650 mg PO Q6HR PRN tab 02/20/17 HYDROcodone/APAP 5-325MG [Globe 1 - 2 each PO Q4-6H PRN #90 tab 04/15/17 5-325] Magnesium Hydroxide [Milk of 2,400 mg PO DAILY PRN ml 04/15/17 Magnesia Concentrate] Sennosides-Docusate Sodium 1 tab PO BID #60 tablet 04/15/17 [Senokot-S] Warfarin [Coumadin] 2.5 mg PO DAILY #30 tab 04/15/17 Nitrofurantoin Monohyd/M-Cryst 100 mg PO BID #14 cap 04/16/17 [Macrobid] Allergies Allergy/AdvReac Type Severity Reaction Status Date / Time No Known Allergies Allergy Verified 04/12/17 07:55 Review of Systems ROS Statement: Those systems with pertinent positive or pertinent negative responses have been documented in the HPI. ROS Other: All systems not noted in ROS Statement are negative. Limitations: ROS unobtainable due to patients medical condition Constitutional: Reports: as per HPI, fever Respiratory: Denies: dyspnea Cardiovascular: Denies: chest pain Gastrointestinal: Denies: abdominal pain Neurological: Denies: headache Past Medical History Past Medical History: Heart Failure, COPD, Dementia, GERD/Reflux, Hyperlipidemia , Hypertension, Renal Disease, Respiratory Disorder, Thyroid Disorder Additional Past Medical History / Comment(s): Pt was born with cleft palate and other physical problems with facial structures including nasal passages and ear canals and festus at bedside states that the ear canals are collapsing. 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 Last Myocardial Infarction Date:: unknown History of Any Multi-Drug Resistant Organisms: ESBL Date of last positivie culture/infection: 08/03/17 MDRO Source:: ESBL URINE Past Surgical History: Bladder Surgery, Joint Replacement, Orthopedic Surgery Additional Past Surgical History / Comment(s): Pt has had multiple surgeries for defects affecting mouth, nose and ears, total L knee arthroplasty, bladder sling, fistula L arm. Past Anesthesia/Blood Transfusion Reactions: No Reported Reaction Past Psychological History: No Psychological Hx Reported Additional Psychological History / Comment(s): Pt now resides at [facility] on [facility]. She was getting around in a wheelchair. She wears O2 at 3L/NC. She gets updraft treatments 4 times a day. She is on a regular thin consistency diet and ensure plus bwice a day. Smoking Status: Former smoker Past Alcohol Use History: None Reported Additional Past Alcohol Use History / Comment(s): Pt quit smoking in 1966. Past Drug Use History: None Reported - Past Family History Father Family Medical History: Cancer Additional Family Medical History / Comment(s): Father prior to age 60 yrs with esophageal cancer. He was a smoker and a drinker. Mother Family Medical History: Osteoarthritis (OA), Renal Disease, Rheumatoid Arthritis (RA) Additional Family Medical History / Comment(s): kidney problems, specific type unknown General Exam General appearance: alert, in distress Head exam: Present: atraumatic, normocephalic Eye exam: Present: EOMI, other (Right cornea clouded). Absent: scleral icterus , conjunctival injection ENT exam: Present: mucous membranes dry Neck exam: Present: full ROM. Absent: tenderness, meningismus Respiratory exam: Present: respiratory distress (Tachypnea), rhonchi. Absent: wheezes, rales, chest wall tenderness, accessory muscle use, decreased breath sounds, prolonged expiratory Cardiovascular Exam: Present: normal rhythm, tachycardia, normal heart sounds. Absent: systolic murmur, diastolic murmur, rubs, gallop GI/Abdominal exam: Present: soft. Absent: distended, tenderness, guarding, rebound, mass Extremities exam: Present: normal inspection, normal capillary refill. Absent: pedal edema, calf tenderness Back exam: Absent: CVA tenderness (R), CVA tenderness (L) Neurological exam: Present: alert, CN II-XII intact, other (Patient is alert, but only oriented to person. GCS 14 (E=4, V=4, M=6). She is not able to comply with the neurologic exam but is moving 4 extremities without focal deficit.). Absent: oriented X3, motor sensory deficit Skin exam: Present: warm, dry, intact, normal color Course Vital Signs 09/29/17 09/29/17 09/29/17 17:02 17:59 19:11 Temperature 97.2 F L 101.8 F H Pulse Rate 144 H 136 H 128 H Respiratory 28 H 22 18 Rate Blood Pressure 161/74 181/94 154/68 O2 Sat by Pulse 91 L 98 98 Oximetry 09/29/17 09/29/17 20:00 20:53 Temperature 100.5 F H 96.7 F L Pulse Rate 106 H 110 H Respiratory 18 18 Rate Blood Pressure 107/53 110/89 O2 Sat by Pulse 98 96 Oximetry Medical Decision Making - Lab Data Result diagrams: 09/29/17 17:30 09/29/17 17:30 Lab Results 09/29/17 09/29/17 09/29/17 Range/Units 17:30 17:30 17:30 WBC 13.4 H (3.8-10.6) k/uL RBC 4.78 (3.80-5.40) m/uL Hgb 13.2 (11.4-16.0) gm/dL Hct 41.3 (34.0-46.0) % MCV 86.5 (80.0-100.0) fL MCH 27.6 (25.0-35.0) pg MCHC 31.9 (31.0-37.0) g/dL RDW 17.0 H (11.5-15.5) % Plt Count 219 (150-450) k/uL Neutrophils % 95 % Lymphocytes % 1 % Monocytes % 3 % Eosinophils % 1 % Basophils % 0 % Neutrophils # 12.7 H (1.3-7.7) k/uL Lymphocytes # 0.2 L (1.0-4.8) k/uL Monocytes # 0.4 (0-1.0) k/uL Eosinophils # 0.1 (0-0.7) k/uL Basophils # 0.0 (0-0.2) k/uL Manual Slide Review Performed Anisocytosis Slight PT (9.0-12.0) sec INR (<1.2) APTT (22.0-30.0) sec Sodium 138 (137-145) mmol/L Potassium 4.4 (3.5-5.1) mmol/L Chloride 101 (98-107) mmol/L Carbon Dioxide 24 (22-30) mmol/L Anion Gap 13 mmol/L BUN 41 H (7-17) mg/dL Creatinine 1.53 H (0.52-1.04) mg/dL Est GFR (CKD-EPI)AfAm 37 (>60 ml/min/1.73 sqM) Est GFR (CKD-EPI)NonAf 32 (>60 ml/min/1.73 sqM) Glucose 122 H (74-99) mg/dL Plasma Lactic Acid Kuldip 1.5 (0.7-2.0) mmol/L Calcium 10.2 (8.4-10.2) mg/dL Total Bilirubin 0.9 (0.2-1.3) mg/dL AST 164 H (14-36) U/L ALT 158 H (9-52) U/L Alkaline Phosphatase 255 H (38-126) U/L Troponin I (0.000-0.034) ng/mL NT-Pro-B Natriuret Pep pg/mL Total Protein 6.0 L (6.3-8.2) g/dL Albumin 3.4 L (3.5-5.0) g/dL Urine Color Urine Appearance (Clear) Urine pH (5.0-8.0) Ur Specific [place] (1.001-1.035) Urine Protein (Negative) Urine Glucose (UA) (Negative) Urine Ketones (Negative) Urine Blood (Negative) Urine Nitrite (Negative) Urine Bilirubin (Negative) Urine Urobilinogen (<2.0) mg/dL Ur Leukocyte Esterase (Negative) Urine RBC (0-5) /hpf Urine WBC (0-5) /hpf Urine WBC Clumps (None) /hpf Ur Squamous Epith Cells (0-4) /hpf Amorphous Sediment (None) /hpf Urine Bacteria (None) /hpf 09/29/17 09/29/17 09/29/17 Range/Units 17:30 17:30 17:30 WBC (3.8-10.6) k/uL RBC (3.80-5.40) m/uL Hgb (11.4-16.0) gm/dL Hct (34.0-46.0) % MCV (80.0-100.0) fL MCH (25.0-35.0) pg MCHC (31.0-37.0) g/dL RDW (11.5-15.5) % Plt Count (150-450) k/uL Neutrophils % % Lymphocytes % % Monocytes % % Eosinophils % % Basophils % % Neutrophils # (1.3-7.7) k/uL Lymphocytes # (1.0-4.8) k/uL Monocytes # (0-1.0) k/uL Eosinophils # (0-0.7) k/uL Basophils # (0-0.2) k/uL Manual Slide Review Anisocytosis PT 49.9 H (9.0-12.0) sec INR 5.5 H* (<1.2) APTT 30.9 H (22.0-30.0) sec Sodium (137-145) mmol/L Potassium (3.5-5.1) mmol/L Chloride (98-107) mmol/L Carbon Dioxide (22-30) mmol/L Anion Gap mmol/L BUN (7-17) mg/dL Creatinine (0.52-1.04) mg/dL Est GFR (CKD-EPI)AfAm (>60 ml/min/1.73 sqM) Est GFR (CKD-EPI)NonAf (>60 ml/min/1.73 sqM) Glucose (74-99) mg/dL Plasma Lactic Acid Kuldip (0.7-2.0) mmol/L Calcium (8.4-10.2) mg/dL Total Bilirubin (0.2-1.3) mg/dL AST (14-36) U/L ALT (9-52) U/L Alkaline Phosphatase (38-126) U/L Troponin I 0.015 (0.000-0.034) ng/mL NT-Pro-B Natriuret Pep 6380 pg/mL Total Protein (6.3-8.2) g/dL Albumin (3.5-5.0) g/dL Urine Color Urine Appearance (Clear) Urine pH (5.0-8.0) Ur Specific [place] (1.001-1.035) Urine Protein (Negative) Urine Glucose (UA) (Negative) Urine Ketones (Negative) Urine Blood (Negative) Urine Nitrite (Negative) Urine Bilirubin (Negative) Urine Urobilinogen (<2.0) mg/dL Ur Leukocyte Esterase (Negative) Urine RBC (0-5) /hpf Urine WBC (0-5) /hpf Urine WBC Clumps (None) /hpf Ur Squamous Epith Cells (0-4) /hpf Amorphous Sediment (None) /hpf Urine Bacteria (None) /hpf 09/29/17 Range/Units 18:45 WBC (3.8-10.6) k/uL RBC (3.80-5.40) m/uL Hgb (11.4-16.0) gm/dL Hct (34.0-46.0) % MCV (80.0-100.0) fL MCH (25.0-35.0) pg MCHC (31.0-37.0) g/dL RDW (11.5-15.5) % Plt Count (150-450) k/uL Neutrophils % % Lymphocytes % % Monocytes % % Eosinophils % % Basophils % % Neutrophils # (1.3-7.7) k/uL Lymphocytes # (1.0-4.8) k/uL Monocytes # (0-1.0) k/uL Eosinophils # (0-0.7) k/uL Basophils # (0-0.2) k/uL Manual Slide Review Anisocytosis PT (9.0-12.0) sec INR (<1.2) APTT (22.0-30.0) sec Sodium (137-145) mmol/L Potassium (3.5-5.1) mmol/L Chloride (98-107) mmol/L Carbon Dioxide (22-30) mmol/L Anion Gap mmol/L BUN (7-17) mg/dL Creatinine (0.52-1.04) mg/dL Est GFR (CKD-EPI)AfAm (>60 ml/min/1.73 sqM) Est GFR (CKD-EPI)NonAf (>60 ml/min/1.73 sqM) Glucose (74-99) mg/dL Plasma Lactic Acid Kuldip (0.7-2.0) mmol/L Calcium (8.4-10.2) mg/dL Total Bilirubin (0.2-1.3) mg/dL AST (14-36) U/L ALT (9-52) U/L Alkaline Phosphatase (38-126) U/L Troponin I (0.000-0.034) ng/mL NT-Pro-B Natriuret Pep pg/mL Total Protein (6.3-8.2) g/dL Albumin (3.5-5.0) g/dL Urine Color Yellow Urine Appearance Cloudy H (Clear) Urine pH 5.5 (5.0-8.0) Ur Specific [place] 1.017 (1.001-1.035) Urine Protein 1+ H (Negative) Urine Glucose (UA) Negative (Negative) Urine Ketones Negative (Negative) Urine Blood Moderate H (Negative) Urine Nitrite Positive H (Negative) Urine Bilirubin Negative (Negative) Urine Urobilinogen <2.0 (<2.0) mg/dL Ur Leukocyte Esterase Large H (Negative) Urine RBC 23 H (0-5) /hpf Urine WBC 167 H (0-5) /hpf Urine WBC Clumps Many H (None) /hpf Ur Squamous Epith Cells 1 (0-4) /hpf Amorphous Sediment Rare H (None) /hpf Urine Bacteria Many H (None) /hpf - EKG Data -: EKG Interpreted by [place] EKG shows normal: axis (Normal), intervals (Normal) Rate: tachycardia (Rate approximately 146 bpm) Interpretation: nonspecific ST-T wave changes, other (Atrial fibrillation) Disposition Clinical Impression: Pneumonia, Urinary tract infection, CHF exacerbation, Atrial fibrillation with RVR, Coumadin toxicity Disposition: ADMITTED IP TO THIS HOSP Condition: Poor Is patient prescribed a controlled substance at d/c from ED?: No Referrals: Molina Phan MD [Primary Care Provider] - 1-2 days
[2017-09-29 17:55] LABS: Anisocytosis Slight; Basophils % (A) 0 %; Eosinophils # (A) 0.1 k/uL (0-0.7); Eosinophils % (A) 1 %; HCT 41.3 % (34.0-46.0); HGB 13.2 gm/dL (11.4-16.0); Lymphocytes # (A) 0.2 k/uL (1.0-4.8); MCH 27.6 pg (25.0-35.0); MCHC 31.9 g/dL (31.0-37.0); MCV 86.5 fL (80.0-100.0); Mean Platelet Volume 7.3; Monocytes # (A) 0.4 k/uL (0-1.0); Monocytes % (A) 3 %; Neutrophils # (A) 12.7 k/uL (1.3-7.7); Neutrophils % (A) 95 %; Platelet Count 219 k/uL (150-450); RBC 4.78 m/uL (3.80-5.40); WBC 13.4 k/uL (3.8-10.6)
[2017-09-29 17:56] LABS: Partial Thromboplastin Time 30.9 sec (22.0-30.0); Prothrombin Time 49.9 sec (9.0-12.0)
[2017-09-29 17:57] LABS: Albumin 3.4 g/dL (3.5-5.0); Calcium 10.2 mg/dL (8.4-10.2); Potassium 4.4 mmol/L (3.5-5.1); Total Bilirubin 0.9 mg/dL (0.2-1.3)
[2017-09-29] MEDS ORDERED: LEVOFLOXACIN 750MG-D5W PMX 750 MG in DEXTROSE/WATER 1 150ML.BAG IVPB STA (18:12)
[2017-09-29] MEDS ORDERED: NITROGLYCERIN OINT 1 INCH/GM PACKET TOPICAL STA (18:14)
[2017-09-29] MEDS ORDERED: ACETAMINOPHEN TAB 325 MG TAB PO STA (18:14)
[2017-09-29] MEDS ORDERED: DILTIAZEM 5 MG/1 ML (25ML VIAL) IV STA (18:15)
[2017-09-29] MEDS ORDERED: DILTIAZEM 50 MG in SODIUM CHLORIDE 0.9% 40 ML IV ONE (18:15)
[2017-09-29 18:19] LABS: Lymphocytes % (A) 1 %
--- NOTE | 2017-09-29 18:22 | XR ---
EXAMINATION TYPE: XR chest 1V portable DATE OF EXAM: 09/29/2017 COMPARISON: April 12, 2017 HISTORY: Fever TECHNIQUE: Single frontal view of the chest is obtained. FINDINGS: The new airspace opacity at the right lung base. There is also mild cephalization of the p ulmonary vessels. No definite pneumothorax or sizable pleural effusion is identified. The cardiac edgardo houette is within normal limits. IMPRESSION: Pneumonia suspected in the right lower lobe. There are also findings consistent with at least mild CHF.
[2017-09-29 18:25] LABS: INR 5.5 (<1.2)
[2017-09-29] MEDS ORDERED: PIPERACILLIN-TAZOBACTAM 3.375 GM in DEXTROSE/WATER 1 50ML.BAG IVPB STA (18:26)
[2017-09-29 19:00] LABS: Amorphous Sediment,Urine Rare /hpf; Appearance,Urine Cloudy (Clear); Bacteria,Urine Many /hpf; Bilirubin,Urine Negative (Negative); Blood,Urine Moderate (Negative); Color,Urine Yellow; Glucose,Urine (UA) Negative (Negative); Ketones,Urine Negative (Negative); Leukocyte Esterase,Urine Large (Negative); Nitrite,Urine Positive (Negative); PH, Urine 5.5 (5.0-8.0); Protein,Urine 1+ (Negative); RBC,Urine 23 /hpf (0-5); Specific Gravity,Urine 1.017 (1.001-1.035); Squamous Epithelial Cell,Urine 1 /hpf (0-4); Urobilinogen,Urine <2.0 mg/dL (<2.0); WBC,Urine 167 /hpf (0-5)
[2017-09-29] MEDS ORDERED: PNEUMONIA PROTOCOL UTILIZED 1 EACH MISC PO PRN (21:51)
[2017-09-29] MEDS ORDERED: HYDROcodone/APAP 5-325MG 1 EACH TAB PO PRN (21:54)
[2017-09-29] MEDS ORDERED: MAGNESIUM HYDROXIDE 2,400 MG/10 ML CUP PO PRN (21:54)
[2017-09-29] MEDS ORDERED: ALBUTEROL NEBULIZED 2.5 MG/3 ML INHALATION PRN (21:54)
[2017-09-29] MEDS: hydrALAZINE HCL 50 MG TAB PO SCH (23:53)
[2017-09-29] MEDS: SODIUM CHLORIDE 0.9% 1,000 ML IV SCH (23:53)
[2017-09-30] MEDS: LEVOTHYROXINE 25 MCG TAB PO SCH (06:32)
[2017-09-30] MEDS: PIPERACILLIN-TAZOBACTAM 3.375 GM in DEXTROSE/WATER 1 50ML.BAG IVPB SCH ×2 (08:32→20:38)
[2017-09-30] MEDS: FUROSEMIDE 40 MG TAB PO SCH ×2 (08:35→20:38)
[2017-09-30] MEDS: hydrALAZINE HCL 50 MG TAB PO SCH ×3 (08:35→20:39)
[2017-09-30] MEDS: ALLOPURINOL 300 MG TAB PO SCH (08:35)
[2017-09-30] MEDS: METOLAZONE 5 MG TAB PO SCH (08:35)
[2017-09-30] MEDS: NITROFURANTOIN MONOHYD/M-CRYST 100 MG CAP PO SCH ×2 (08:36→20:38)
[2017-09-30] MEDS: METOPROLOL TARTRATE 50 MG TAB PO SCH (08:36)
[2017-09-30] MEDS: prednisoLONE ACETATE 1% OPHTH DROPS 5 ML BTL LEFT EYE SCH (08:36)
[2017-09-30] MEDS: POTASSIUM CHLORIDE ER 20 MEQ TAB.ER PO SCH ×2 (08:36→20:39)
[2017-09-30] MEDS: SENNOSIDES-DOCUSATE SODIUM 1 EACH TAB PO SCH ×2 (08:37→20:39)
[2017-09-30] MEDS ORDERED: FAMOTIDINE 20 MG TAB PO SCH (09:00)
[2017-09-30 09:03] LABS: Prothrombin Time 59.5 sec (9.0-12.0)
[2017-09-30 09:08] LABS: INR 6.5 (<1.2)
[2017-09-30] MEDS ORDERED: PHYTONADIONE ORAL 5 MG/5 ML ORAL.SYRG PO STA (15:03)
--- NOTE | 2017-09-30 16:24 | P.HPIM ---
History of Present Illness H&P Date: 09/30/17 Chief Complaint: Feeling sick Mrs. Casillas done as an 81-year-old female with a past medical history of COPD, Dementia, GERD/Reflux, Hyperlipidemia, Hypertension, Renal Disease, Respiratory Disorder, Thyroid Disorder, hard of hearing, right eye blindness sent from her longterm for fever and agitation. Patient is very hard of hearing and so most of the history is taken from the ED note and nursing staff report. Patient states that she has been feeling sick but could not give me the details. She denies having any chest pain any difficulty in breathing or palpitations. She denies having any abdominal pain nausea vomiting or diarrhea. Denies having any dysuria or hematuria. She states that she was feeling sick. In the ED the patient was found to have atrial fibrillation with rapid ventricular rate was started on IV Cardizem drip. The drip has been discontinued this morning and the patient's heart rate is in between 90s to 100s. She was also found to have urine positive for nitrates and the chest x-ray positive for an infiltrate for which she has been started on Zosyn and Levaquin. Review of Systems REVIEW OF SYSTEMS: PSYCH: Normal psychiatric exam HEENT: Patient very hard of hearing NEURO:No c/o weakness of the extremties, No facial droop, No speech abnormalities. VASCULAR: Peripheral nervous system within the normal limits no edema HEMATOLOGIC: No history of easy bleeding and bruising . No recent infections . RESPIRATORY: No cough, No SOB, No chest discomfort. 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 GI: No abdominal pain, Nausea or vomiting. No constipation or diarrhea. Past Medical History Past Medical History: Heart Failure, COPD, Dementia, GERD/Reflux, Hyperlipidemia , Hypertension, Renal Disease, Respiratory Disorder, Thyroid Disorder Additional Past Medical History / Comment(s): Pt was born with cleft palate and other physical problems with facial structures including nasal passages and ear canals and festus at bedside states that the ear canals are collapsing. 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 Last Myocardial Infarction Date:: unknown History of Any Multi-Drug Resistant Organisms: ESBL Date of last positivie culture/infection: 08/03/17 MDRO Source:: ESBL URINE Past Surgical History: Bladder Surgery, Joint Replacement, Orthopedic Surgery Additional Past Surgical History / Comment(s): Pt has had multiple surgeries for defects affecting mouth, nose and ears, total L knee arthroplasty, bladder sling, fistula L arm. Past Anesthesia/Blood Transfusion Reactions: No Reported Reaction Past Psychological History: No Psychological Hx Reported Additional Psychological History / Comment(s): Pt now resides at [facility] on the [place]. She was getting around in a wheelchair. She wears O2 at 3L/NC. She gets updraft treatments 4 times a day. She is on a regular thin consistency diet and ensure plus bwice a day. Smoking Status: Former smoker Past Alcohol Use History: None Reported Additional Past Alcohol Use History / Comment(s): Pt quit smoking in 1966. Past Drug Use History: None Reported - Past Family History Father Family Medical History: Cancer Additional Family Medical History / Comment(s): Father prior to age 60 yrs with esophageal cancer. He was a smoker and a drinker. Mother Family Medical History: Osteoarthritis (OA), Renal Disease, Rheumatoid Arthritis (RA) Additional Family Medical History / Comment(s): kidney problems, specific type unknown Medications and Allergies Home Medications Medication Instructions Recorded Confirmed Type Allopurinol [Zyloprim] 300 mg PO DAILY 02/16/17 09/30/17 History Dicyclomine HCl 10 mg PO Q6H 02/16/17 09/30/17 History Fluticasone Nasal [place] [Flonase 1 spray EA NOSTRIL Q12H 02/16/17 09/30/17 History Nasal [place]] Levothyroxine Sodium [Synthroid] 25 mcg PO DAILY@0600 02/16/17 09/30/17 History Acetaminophen Tab [Tylenol] 650 mg PO Q6HR PRN tab 02/20/17 09/30/17 Rx ALPRAZolam [Xanax] 0.25 mg PO HS 04/12/17 09/30/17 History Albuterol Nebulized [Ventolin 2.5 mg INHALATION RT-Q4H PRN 04/12/17 09/29/17 History Nebulized] Atorvastatin [Lipitor] 10 mg PO HS 04/12/17 09/30/17 History Buprenorphine [Butrans 10 MCG/HOUR] 1 patch TRANSDERM TU 04/12/17 09/30/17 History Ergocalciferol (Vitamin D2) 50,000 unit PO Q30D 04/12/17 09/30/17 History [Vitamin D2] Loratadine [Claritin] 10 mg PO DAILY PRN 04/12/17 09/30/17 History Metolazone [Zaroxolyn] 5 mg PO MOTH 04/12/17 09/30/17 History Metoprolol Tartrate [Lopressor] 50 mg PO BID@0900,1700 04/12/17 09/30/17 History Potassium Chloride [Klor-Con 20] 20 meq PO BID@0900,1700 04/12/17 09/30/17 History Ranitidine HCl [Zantac] 150 mg PO BID@0600,1700 04/12/17 09/30/17 History guaiFENesin [guaiFENesin Oral 200 mg PO Q4HR PRN 04/12/17 09/30/17 History Solution] hydrALAZINE HCL [Apresoline] 50 mg PO TID 04/12/17 09/30/17 History prednisoLONE ACETATE [Pred Forte 2 drop LEFT EYE DAILY 04/12/17 09/30/17 History 1%] Magnesium Hydroxide [Milk of 2,400 mg PO DAILY PRN ml 04/15/17 09/30/17 Rx Magnesia Concentrate] Sennosides-Docusate Sodium 1 tab PO BID #60 tablet 04/15/17 09/30/17 Rx [Senokot-S] Ferrous Sulfate [Feosol] 325 mg PO BID@0900,1700 09/30/17 09/30/17 History Furosemide [Lasix] 20 mg PO DAILY@0600 09/30/17 09/30/17 History HYDROcodone/APAP 5-325MG [[place] 1 - 2 tab PO Q4HR PRN 09/30/17 09/30/17 History 5-325] Latanoprost [Xalatan 0.005%] 1 drop LEFT EYE HS 09/30/17 09/30/17 History Melatonin 3 mg PO HS PRN 09/30/17 09/30/17 History SILVER sulfADIAZINE CREAM 1 applic TOPICAL BID 09/30/17 09/30/17 History [Silvadene Cream] Triad Hydrophilic Wound Paste 1 applic TOPICAL Q12H 09/30/17 09/30/17 History Vit C/E/Zn/Coppr/Lutein/Zeaxan 1 cap PO BID 09/30/17 09/30/17 History [Preservision Areds 2 Softgel] Warfarin [Coumadin] 2 mg PO MOTUWEFRSA 09/30/17 09/30/17 History acetaZOLAMIDE [Diamox] 250 mg PO TU 09/30/17 09/30/17 History Allergies Allergy/AdvReac Type Severity Reaction Status Date / Time No Known Allergies Allergy Verified 09/30/17 09:38 Physical Exam Vitals: Vital Signs Temp Pulse Pulse Resp BP BP Pulse Ox 09/30/17 11:10 97.0 F L 91 18 126/69 95 09/30/17 07:55 97.3 F L 108 H 18 127/68 95 09/30/17 07:15 97 09/30/17 04:00 97.6 F 118 H 18 158/78 98 09/30/17 00:00 112 H 18 09/29/17 23:30 97.0 F L 112 H 18 120/31 96 09/29/17 22:36 98.3 F 96 16 124/59 97 09/29/17 20:53 96.7 F L 110 H 18 110/89 96 09/29/17 20:00 100.5 F H 106 H 18 107/53 98 09/29/17 19:11 128 H 18 154/68 98 09/29/17 17:59 101.8 F H 136 H 22 181/94 98 09/29/17 17:02 97.2 F L 144 H 28 H 161/74 91 L Intake and Output 09/30/17 09/30/17 09/30/17 06:59 14:59 22:59 Intake Total 160 Balance 160 Intake: Intake, IV Titration 160 Amount Sodium Chloride 0.9% 1, 160 000 ml @ 20 mls/hr IV . Q24H [facility] Rx#:[id number] Other: Voiding Method Toilet Toilet Weight 77.7 kg GENERAL EXAM GEN. APPEARANCE: alert, in no apparent distress HEAD EXAM: atraumatic, normocephalic, normal inspection EYE EXAM: right eye is completely white ENT EXAM: normal exam, mucous membranes moist NECK EXAM: normal inspection. Absent: tenderness, meningismus, full ROM, lymphadenopathy RESPIRATORY EXAM: decaresed breath sounds in all lung jaime. No crackles at the lower lung bases CARDIOVASCULAR EXAM: Irregularly irregular GI/ABDOMINAL EXAM: soft, normal bowel sounds. Absent: distended, tenderness, guarding, rebound, rigid EXTREMITIES EXAM: mild Bilateral pitting edema NEUROLOGICAL EXAM: alert, oriented X3, no focal deficits on gross exam PSYCHIATRIC EXAM: normal affect, normal mood SKIN EXAM: warm, dry, intact, normal color. Absent: rash Results CBC & Chem 7: 09/29/17 17:30 09/29/17 17:30 Labs: Abnormal Lab Results - Last 24 Hours (Table) 09/29/17 09/29/17 09/29/17 Range/Units 17:30 17:30 17:30 WBC 13.4 H (3.8-10.6) k/uL RDW 17.0 H (11.5-15.5) % Neutrophils # 12.7 H (1.3-7.7) k/uL Lymphocytes # 0.2 L (1.0-4.8) k/uL PT 49.9 H (9.0-12.0) sec INR 5.5 H* (<1.2) APTT 30.9 H (22.0-30.0) sec BUN 41 H (7-17) mg/dL Creatinine 1.53 H (0.52-1.04) mg/dL Glucose 122 H (74-99) mg/dL AST 164 H (14-36) U/L ALT 158 H (9-52) U/L Alkaline Phosphatase 255 H (38-126) U/L Total Protein 6.0 L (6.3-8.2) g/dL Albumin 3.4 L (3.5-5.0) g/dL Urine Appearance (Clear) Urine Protein (Negative) Urine Blood (Negative) Urine Nitrite (Negative) Ur Leukocyte Esterase (Negative) Urine RBC (0-5) /hpf Urine WBC (0-5) /hpf Urine WBC Clumps (None) /hpf Amorphous Sediment (None) /hpf Urine Bacteria (None) /hpf 09/29/17 09/30/17 Range/Units 18:45 08:40 WBC (3.8-10.6) k/uL RDW (11.5-15.5) % Neutrophils # (1.3-7.7) k/uL Lymphocytes # (1.0-4.8) k/uL PT 59.5 H (9.0-12.0) sec INR 6.5 H* (<1.2) APTT (22.0-30.0) sec BUN (7-17) mg/dL Creatinine (0.52-1.04) mg/dL Glucose (74-99) mg/dL AST (14-36) U/L ALT (9-52) U/L Alkaline Phosphatase (38-126) U/L Total Protein (6.3-8.2) g/dL Albumin (3.5-5.0) g/dL Urine Appearance Cloudy H (Clear) Urine Protein 1+ H (Negative) Urine Blood Moderate H (Negative) Urine Nitrite Positive H (Negative) Ur Leukocyte Esterase Large H (Negative) Urine RBC 23 H (0-5) /hpf Urine WBC 167 H (0-5) /hpf Urine WBC Clumps Many H (None) /hpf Amorphous Sediment Rare H (None) /hpf Urine Bacteria Many H (None) /hpf Microbiology - Last 24 Hours (Table) 09/29/17 17:37 Blood Culture Gram Stain - Preliminary Blood 09/29/17 17:30 Blood Culture - Final Blood 09/29/17 18:45 Urine Culture - Preliminary Urine,Catheterized Thrombosis Risk Factor Assmnt - Choose All That Apply Any of the Below Risk Factors Present?: Yes Each Factor Represents 1 point: Abnormal pulmonary function (COPD) Other Risk Factors: Yes Each Risk Factor Represents 3 Points: Age 75 years or older Other congenital or acquired thrombophilia - If yes, enter type in comment: No Thrombosis Risk Factor Assessment Total Risk Factor Score: 4 Thrombosis Risk Factor Assessment Level: Moderate Risk Assessment and Plan Assessment: ASSESSMENT Sepsis secondary to pneumonia and UTI Right lower lobe pneumonia Urinary tract infection possibly gram-negative organisms Atrial fibrillation with rapid ventricular rate Supra-Therapeutic INR - no signs of active bleeding Elevated liver function tests - can be secondary to hypotension Acute kidney injury - prerenal Mild protein calorie malnutrition PLAN Patient has been started on IV Zosyn and Levaquin for her UTI and pneumonia which will be continued. Will start on IV fluids normal saline at 75 mL per output for her acute kidney injury. Vitamin K 10 mg by mouth for supratherapeutic INR. Patient's atrial fibrillation is rate controlled now we' ll continue with Lopressor and have cardiology on board. We'll continue with the rest of her home medication regimen. Patient is a DO NOT RESUSCITATE. Further recommendations to follow depending on the progress of the patient.
[2017-09-30] MEDS: SODIUM CHLORIDE 0.9% 1,000 ML IV SCH ×2 (16:58→20:43)
[2017-09-30] MEDS ORDERED: LEVOFLOXACIN 750MG-D5W PMX 750 MG in DEXTROSE/WATER 1 150ML.BAG IVPB SCH (19:00)
[2017-09-30] MEDS: ATORVASTATIN 10 MG TAB PO SCH (20:38)
[2017-10-01] MEDS: DILTIAZEM 50 MG in SODIUM CHLORIDE 0.9% 40 ML IV SCH ×2 (01:12→08:54)
[2017-10-01] MEDS: LEVOTHYROXINE 25 MCG TAB PO SCH (06:00)
[2017-10-01] MEDS: SODIUM CHLORIDE 0.9% 1,000 ML IV SCH ×2 (06:01→22:45)
[2017-10-01 06:49] LABS: Anisocytosis Slight; Basophils % (A) 0 %; Eosinophils # (A) 0.1 k/uL (0-0.7); Eosinophils % (A) 1 %; HCT 33.9 % (34.0-46.0); HGB 10.4 gm/dL (11.4-16.0); Hypochromasia Slight; Lymphocytes # (A) 0.6 k/uL (1.0-4.8); Lymphocytes % (A) 6 %; MCH 26.9 pg (25.0-35.0); MCHC 30.6 g/dL (31.0-37.0); MCV 87.9 fL (80.0-100.0); Mean Platelet Volume 8.1; Monocytes # (A) 0.6 k/uL (0-1.0); Monocytes % (A) 7 %; Neutrophils # (A) 7.5 k/uL (1.3-7.7); Neutrophils % (A) 83 %; Platelet Count 179 k/uL (150-450); RBC 3.86 m/uL (3.80-5.40); RDW 16.8 % (11.5-15.5); WBC 9.1 k/uL (3.8-10.6)
[2017-10-01 06:51] LABS: INR 1.5 (<1.2); Prothrombin Time 13.9 sec (9.0-12.0)
[2017-10-01 06:59] LABS: Calcium 9.7 mg/dL (8.4-10.2); Potassium 3.8 mmol/L (3.5-5.1)
[2017-10-01] MEDS: hydrALAZINE HCL 50 MG TAB PO SCH (08:47)
[2017-10-01] MEDS: FUROSEMIDE 40 MG TAB PO SCH (08:47)
[2017-10-01] MEDS: POTASSIUM CHLORIDE ER 20 MEQ TAB.ER PO SCH ×2 (08:47→19:51)
[2017-10-01] MEDS: ALLOPURINOL 300 MG TAB PO SCH (08:48)
[2017-10-01] MEDS: prednisoLONE ACETATE 1% OPHTH DROPS 5 ML BTL LEFT EYE SCH (08:48)
[2017-10-01] MEDS: FAMOTIDINE 20 MG TAB PO SCH (08:48)
[2017-10-01] MEDS: NITROFURANTOIN MONOHYD/M-CRYST 100 MG CAP PO SCH ×2 (08:48→19:51)
[2017-10-01] MEDS: METOPROLOL TARTRATE 50 MG TAB PO SCH ×2 (08:48→19:52)
[2017-10-01] MEDS: SENNOSIDES-DOCUSATE SODIUM 1 EACH TAB PO SCH ×2 (08:49→19:51)
[2017-10-01] MEDS: PIPERACILLIN-TAZOBACTAM 3.375 GM in DEXTROSE/WATER 1 50ML.BAG IVPB SCH ×2 (08:53→20:40)
--- NOTE | 2017-10-01 09:11 | P.CRDCN ---
History of Present Illness Consult date: 10/01/17 Requesting physician: Molly Castillo Consult reason: atrial fibrillation Chief complaint: Fever and agitation History of present illness: Is is a pleasant 81-year-old female who resides at an extended care facility. She was brought to the hospital because of fever and mild agitation. Patient has a known history of paroxysmal atrial fibrillation, dementia mild, blindness in the right eye, COPD, GERD, hypertension, hyperlipidemia, renal disease, hypothyroidism, she is quite hard of hearing however to speak loudly she answers appropriately. EKG on arrival here showed atrial fibrillation with a rapid ventricular response and nonspecific ST-T wave changes. Chest x-ray reveals suspicion of pneumonia in the right lower lobe and findings consistent with mild congestive heart failure. The pressure on arrival 160/70 with a heart rate of 144, 91% on room air. Temperature did go up to 101.8. Blood culture positive for gram-negative bacilli. Urine culture positive for gram- negative bacilli. White blood cell count yesterday 13.4, 9.1 this morning. Hemoglobin 13.2 with a hemoglobin of 10.2 this morning. Platelet count 179. INR on admission 5.5, subsequent 6.5, 1.5 this morning. Sodium 137, potassium 3.8, BUN 49, creatinine 1.8. AST 164, ALT 158, alk phos 255. Troponin 0.015, BNP 6380. Positive UTI. At the time of my examination this morning, patient continues to be in atrial fibrillation with a heart rate of 1:30. She denies palpitations at present but states when she exerts herself she can really feel her heart going fast. Breathing overall according to her has been stable. Patient was initiated on IV Cardizem in the emergency room she continues to be on at this time. Echocardiogram with Doppler study performed in February 2017 revealed an ejection fraction of 60-65%. Past Medical History Past Medical History: Heart Failure, COPD, Dementia, GERD/Reflux, Hyperlipidemia , Hypertension, Renal Disease, Respiratory Disorder, Thyroid Disorder Additional Past Medical History / Comment(s): Pt was born with cleft palate and other physical problems with facial structures including nasal passages and ear canals and festus at bedside states that the ear canals are collapsing. 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 Last Myocardial Infarction Date:: unknown History of Any Multi-Drug Resistant Organisms: ESBL Date of last positivie culture/infection: 08/03/17 MDRO Source:: ESBL URINE Past Surgical History: Bladder Surgery, Joint Replacement, Orthopedic Surgery Additional Past Surgical History / Comment(s): Pt has had multiple surgeries for defects affecting mouth, nose and ears, total L knee arthroplasty, bladder sling, fistula L arm. Past Anesthesia/Blood Transfusion Reactions: No Reported Reaction Past Psychological History: No Psychological Hx Reported Additional Psychological History / Comment(s): Pt now resides at [facility] on the [place]. She was getting around in a wheelchair. She wears O2 at 3L/NC. She gets updraft treatments 4 times a day. She is on a regular thin consistency diet and ensure plus bwice a day. Smoking Status: Former smoker Past Alcohol Use History: None Reported Additional Past Alcohol Use History / Comment(s): Pt quit smoking in 1966. Past Drug Use History: None Reported - Past Family History Father Family Medical History: Cancer Additional Family Medical History / Comment(s): Father prior to age 60 yrs with esophageal cancer. He was a smoker and a drinker. Mother Family Medical History: Osteoarthritis (OA), Renal Disease, Rheumatoid Arthritis (RA) Additional Family Medical History / Comment(s): kidney problems, specific type unknown Medications and Allergies Home Medications Medication Instructions Recorded Confirmed Type Allopurinol [Zyloprim] 300 mg PO DAILY 02/16/17 09/30/17 History Dicyclomine HCl 10 mg PO Q6H 02/16/17 09/30/17 History Fluticasone Nasal [place] [Flonase 1 spray EA NOSTRIL Q12H 02/16/17 09/30/17 History Nasal [place]] Levothyroxine Sodium [Synthroid] 25 mcg PO DAILY@0600 02/16/17 09/30/17 History Acetaminophen Tab [Tylenol] 650 mg PO Q6HR PRN tab 02/20/17 09/30/17 Rx ALPRAZolam [Xanax] 0.25 mg PO HS 04/12/17 09/30/17 History Albuterol Nebulized [Ventolin 2.5 mg INHALATION RT-Q4H PRN 04/12/17 09/29/17 History Nebulized] Atorvastatin [Lipitor] 10 mg PO HS 04/12/17 09/30/17 History Buprenorphine [Butrans 10 MCG/HOUR] 1 patch TRANSDERM TU 04/12/17 09/30/17 History Ergocalciferol (Vitamin D2) 50,000 unit PO Q30D 04/12/17 09/30/17 History [Vitamin D2] Loratadine [Claritin] 10 mg PO DAILY PRN 04/12/17 09/30/17 History Metolazone [Zaroxolyn] 5 mg PO MOTH 04/12/17 09/30/17 History Metoprolol Tartrate [Lopressor] 50 mg PO BID@0900,1700 04/12/17 09/30/17 History Potassium Chloride [Klor-Con 20] 20 meq PO BID@0900,1700 04/12/17 09/30/17 History Ranitidine HCl [Zantac] 150 mg PO BID@0600,1700 04/12/17 09/30/17 History guaiFENesin [guaiFENesin Oral 200 mg PO Q4HR PRN 04/12/17 09/30/17 History Solution] hydrALAZINE HCL [Apresoline] 50 mg PO TID 04/12/17 09/30/17 History prednisoLONE ACETATE [Pred Forte 2 drop LEFT EYE DAILY 04/12/17 09/30/17 History 1%] Magnesium Hydroxide [Milk of 2,400 mg PO DAILY PRN ml 04/15/17 09/30/17 Rx Magnesia Concentrate] Sennosides-Docusate Sodium 1 tab PO BID #60 tablet 04/15/17 09/30/17 Rx [Senokot-S] Ferrous Sulfate [Feosol] 325 mg PO BID@0900,1700 09/30/17 09/30/17 History Furosemide [Lasix] 20 mg PO DAILY@0600 09/30/17 09/30/17 History HYDROcodone/APAP 5-325MG [[place] 1 - 2 tab PO Q4HR PRN 09/30/17 09/30/17 History 5-325] Latanoprost [Xalatan 0.005%] 1 drop LEFT EYE HS 09/30/17 09/30/17 History Melatonin 3 mg PO HS PRN 09/30/17 09/30/17 History SILVER sulfADIAZINE CREAM 1 applic TOPICAL BID 09/30/17 09/30/17 History [Silvadene Cream] Triad Hydrophilic Wound Paste 1 applic TOPICAL Q12H 09/30/17 09/30/17 History Vit C/E/Zn/Coppr/Lutein/Zeaxan 1 cap PO BID 09/30/17 09/30/17 History [Preservision Areds 2 Softgel] Warfarin [Coumadin] 2 mg PO MOTUWEFRSA 09/30/17 09/30/17 History acetaZOLAMIDE [Diamox] 250 mg PO TU 09/30/17 09/30/17 History Allergies Allergy/AdvReac Type Severity Reaction Status Date / Time No Known Allergies Allergy Verified 09/30/17 09:38 Physical Exam Vitals: Vital Signs Temp Pulse Resp BP Pulse Ox 10/01/17 08:42 95 10/01/17 04:00 97.0 F L 113 H 18 140/89 95 10/01/17 01:30 108 H 100 10/01/17 00:00 97.1 F L 151 H 18 146/93 92 L 09/30/17 20:00 98.7 F 109 H 20 145/77 100 09/30/17 16:25 97.0 F L 98 16 149/89 92 L 09/30/17 11:10 97.0 F L 91 18 126/69 95 Intake and Output 09/30/17 10/01/17 10/01/17 22:59 06:59 14:59 Intake Total 600 Balance 600 Intake: Intake, IV Titration 600 Amount Sodium Chloride 0.9% 1, 600 000 ml @ 75 mls/hr IV . [id number] [facility] Rx#:[id number] Other: Voiding Method Toilet Toilet # Voids 2 6 Weight 76.7 kg PHYSICAL EXAMINATION: 81-year-old female in no apparent distress at the time of my examination HEENT: Head is atraumatic, normocephalic. Right eye partially close, cloudy. Neck is supple. There is no elevated jugular venous pressure. HEART EXAMINATION: Heart S1 and S2 irregularly irregular CHEST EXAMINATION: Lungs are clear with mild diminished air entry to the bases fine crackles heard to the right posterior base. ABDOMEN: Soft, nontender. Bowel sounds are heard. No organomegaly noted. EXTREMITIES: 2+ peripheral pulses with evidence of peripheral edema and no calf tenderness noted. NEUROLOGIC patient is awake, alert and oriented -2. . Results 10/01/17 05:56 10/01/17 05:56 Coagulation 09/30/17 10/01/17 Range/Units 08:40 05:56 PT 59.5 H 13.9 H (9.0-12.0) sec CBC 10/01/17 Range/Units 05:56 WBC 9.1 (3.8-10.6) k/uL RBC 3.86 (3.80-5.40) m/uL Hgb 10.4 L (11.4-16.0) gm/dL Hct 33.9 L (34.0-46.0) % Plt Count 179 (150-450) k/uL Comprehensive Metabolic Panel 10/01/17 Range/Units 05:56 Sodium 137 (137-145) mmol/L Potassium 3.8 (3.5-5.1) mmol/L Chloride 102 (98-107) mmol/L Carbon Dioxide 22 (22-30) mmol/L BUN 49 H (7-17) mg/dL Creatinine 1.88 H (0.52-1.04) mg/dL Glucose 95 (74-99) mg/dL Calcium 9.7 (8.4-10.2) mg/dL Current Medications Generic Name Dose Route Start Last Admin Trade Name Freq PRN Reason Stop Dose Admin Acetaminophen 650 mg 09/29/17 21:54 Tylenol Tab PO Q6HR PRN Mild Pain or Fever > 100.5 Hydrocodone Bitart/Acetaminophen 1 each 09/29/17 21:54 [place] 5-325 PO Q6H PRN Moderate Pain Albuterol Sulfate 2.5 mg 09/29/17 21:54 Ventolin Nebulized INHALATION RT-Q4H PRN COPD Allopurinol 300 mg 09/30/17 09:00 09/30/17 08:35 Zyloprim PO 300 mg DAILY [facility] Administration Alprazolam 0.25 mg 09/29/17 21:54 Xanax PO BID PRN Anxiety Atorvastatin Calcium 10 mg 09/30/17 21:00 09/30/17 20:38 Lipitor PO 10 mg HS DEEPTI Administration Famotidine 20 mg 10/01/17 09:00 Pepcid PO DAILY DEEPTI Furosemide 40 mg 09/30/17 09:00 09/30/17 20:38 Lasix PO 40 mg BID DEEPTI Administration Hydralazine HCl 50 mg 09/29/17 22:00 09/30/17 20:39 Apresoline PO 50 mg TID DEEPTI Administration Piperacillin/Tazobactam/ 50 mls @ 12.5 mls/hr 09/30/17 09:00 09/30/17 20:38 Dextrose 3.375 gm/ IV Solution IVPB 12.5 mls/hr Q12HR [facility] Administration Sodium Chloride 1,000 mls @ 20 mls/hr 09/29/17 22:00 09/30/17 20:43 Saline 0.9% IV Not Given .Q24H [facility] Levofloxacin 750 mg/ IV 150 mls @ 100 mls/hr 10/01/17 19:00 Solution IVPB Q48H [facility] Sodium Chloride 1,000 mls @ 75 mls/hr 09/30/17 15:00 10/01/17 06:01 Saline 0.9% IV 75 mls/hr .[id number] [facility] Administration Diltiazem HCl 50 mg/ Sodium 50 mls @ 5 mls/hr 10/01/17 00:45 10/01/17 01:12 Chloride IV 5 mg/hr .Q10H [facility] 5 mls/hr Protocol Administration 5 MG/HR Levothyroxine Sodium 25 mcg 09/30/17 06:30 10/01/17 06:00 Synthroid PO 25 mcg 0630 [facility]EE[facility] Administration Magnesium Hydroxide 2,400 mg 09/29/17 21:54 Milk Of Magnesia PO DAILY PRN Constipation Metolazone 5 mg 09/30/17 09:00 09/30/17 08:35 Zaroxolyn PO 5 mg MOTH [facility] Administration Metoprolol Tartrate 50 mg 09/30/17 09:00 09/30/17 08:36 Lopressor PO 50 mg DAILY [facility]EE[facility]I Administration Miscellaneous Information 1 each 09/29/17 21:51 Pneumonia Protocol Utilized PO ONCE PRN Per Protocol Nitrofurantoin Macrocrystals 100 mg 09/30/17 09:00 09/30/17 20:38 Macrobid PO 100 mg BID [facility] Administration Non-Formulary Medication 1 patch 10/01/17 09:00 Buprenorphine [Butrans 10 Mcg/Hour] TRANSDERM TU [facility] Potassium Chloride 20 meq 09/30/17 09:00 09/30/17 20:39 K-Dur 20 PO 20 meq BID [facility] Administration Prednisolone Acetate 2 drops 09/30/17 09:00 09/30/17 08:36 Pred Forte 1% LEFT EYE 2 drops DAILY [facility]EEPTI Administration Senna/Docusate Sodium 1 each 09/30/17 09:00 09/30/17 20:39 Senokot-S PO 1 each BID [facility]EE[facility]I Administration Intake and Output 09/30/17 10/01/17 10/01/17 22:59 06:59 14:59 Intake Total 600 Balance 600 Intake: Intake, IV Titration 600 Amount Sodium Chloride 0.9% 1, 600 000 ml @ 75 mls/hr IV . [id number] [facility] Rx#:[id number] Other: Voiding Method Toilet Toilet # Voids 2 6 Weight 76.7 kg 10/01/17 05:56 10/01/17 05:56 EKG Interpretations (text) EKG shows atrial fibrillation with a rapid ventricular response Assessment and Plan Plan: Assessment and plan #1 fever with evidence of UTI, positive blood cultures positive urine cultures early on antibiotics. #2 atrial fibrillation with rapid ventricular response #3 history of paroxysmal atrial fibrillation on Coumadin for anticoagulation, INR 5.5 on admission, 1.5 morning. #4 hypertension Number 5 hyperlipidemia #6 acute on chronic renal insufficiency #7 congestive cardiac failure, could be secondary to atrial fibrillation with rapid ventricular response, likely diastolic in nature. LV function normal in February 2017. #8 abnormal liver enzymes, could be secondary to congestion. Plan Will obtain a repeat echocardiogram with Doppler study, initiate some IV Lasix. We will also increase the dose of beta ulysses for more optimal heart rate control. Obtain free T4 and TSH level. Further recommendations to follow. DNP note has been reviewed, I agree with a documented findings and plan of care. Patient was seen and examined.
[2017-10-01] MEDS: BUPRENORPHINE TRANSDERM SCH (09:15)
[2017-10-01] MEDS ORDERED: METOPROLOL TARTRATE 50 MG TAB PO SCH (09:15)
--- NOTE | 2017-10-01 11:01 | CDI ---
Last Revision, May 2017 Documentation Clarification Form Date: 10/01/2017 10:50:00 AM From: Lisa AmosCLAIR, CCDS Admit Date: 09/29/2017 9:51:00 PM Patient Name: Franko Sawyer Visit Number: [id number] Discharge Date: ATTENTION: The Clinical Documentation Specialists (CDI) and [facility] Coding Staff appreciate your assistance in clarifying documentation. Please respond to the clarification below the line at the bottom and electronically sign. The CDI & [facility] Coding staff will review the response and follow-up if needed. Please note: Queries are made part of the Legal Health Record. If you have any questions, please contact the author of this message via ITS. Dr. Naz Vee: 81 yo female, presented from [place] with fever, agitation, elevated heart rate, diagnosed with Sepsis with UTI & pneumonia, AVERY and atrial fibrillation. History: Home O2 3Lnc ATC, CHF, COPD, Hypertension, CKD stage IV. Receives updates 4 times daily. Tobacco use: Former smoker. Clinical Indicators: Vital signs: T 97.2*, P 144^, R 28, BP 161/74, PO 91 RA, 98 2Lnc. Lung/Breathing assessment: SOB Treatment: O2 2Lnc, IV Levaquin, Nitropaste, IV Cardizem (dc'd), IV Zosyn, Albuterol Neb txs. In your professional opinion, can you please clarify if these findings signify one of the following conditions? Acuity: o Acute o Chronic o Acute on Chronic Specificity: Respiratory Failure, further specify (if known): o With hypercapnia? o With hypoxia? o Respiratory Insufficiency o Other Diagnosis, please specify o Unable to determine Please continue to document in your progress notes and discharge summary in order to capture severity of illness and risk of mortality. Include clinical findings that support your diagnosis. MTDD
[2017-10-01] MEDS: FUROSEMIDE 10 MG/ML 4 ML VIAL IV SCH ×2 (11:17→19:51)
--- NOTE | 2017-10-01 12:27 | ECHOF ---
Referral Reason:afib MEASUREMENTS -------- HEIGHT: 154.9 cm WEIGHT: 76.7 kg BP: 140/89 RVIDd: 3.0 cm (< 3.3) IVSd: 1.0 cm (0.6 - 1.1) LVIDd: 3.7 cm (3.9 - 5.3) LVPWd: 1.1 cm (0.6 - 1.1) IVSs: 1.6 cm LVIDs: 2.5 cm LVPWs: 1.4 cm LAESV Index (A-L): 37.49 ml/m Ao Diam: 2.5 cm (2.0 - 3.7) AV Cusp: 1.4 cm (1.5 - 2.6) LA Diam: 4.5 cm (2.7 - 3.8) EPSS: 0.7 cm MV E Dilan: 1.40 m/s MV DecT: 166 ms MV A Dilan: 0.00 m/s MV E/A Ratio: [id number] RAP: 5.00 mmHg RVSP: 51.70 mmHg MV EF SLOPE: 127.39 mm/s (70 - 150) MV EXCURSION: 2.08 cm (> 18.000) FINDINGS -------- Atrial fibrillation. This was a technically adequate study. The left ventricular size is normal. Left ventricular wall thickness is normal. Overall left vent ricular systolic function is normal with, an EF between 55 - 60 %. The right ventricle is mildly enlarged. LA is moderately dilated 34-39 ml/m2 The right atrium is markedly enlarged. There is mild to moderate aortic valve sclerosis. There is no evidence of aortic regurgitation. T here is no evidence of aortic stenosis. Mild mitral annular calcification present. There is trace to mild mitral regurgitation. Moderate to severe tricuspid regurgitation present. There is mild to moderate pulmonary hypertensio n. The right ventricular systolic pressure, as measured by Doppler, is 51.70mmHg. The pulmonic valve was not well visualized. The aortic root size is normal. Normal inferior vena cava with normal inspiratory collapse consistent with estimated right atrial pre ssure of 5 mmHg. There is no pericardial effusion. CONCLUSIONS -------- 1. Atrial fibrillation. 2. This was a technically adequate study. 3. The left ventricular size is normal. 4. Left ventricular wall thickness is normal. 5. Overall left ventricular systolic function is normal with, an EF between 55 - 60 %. 6. The right ventricle is mildly enlarged. 7. LA is moderately dilated 34-39 ml/m2 8. The right atrium is markedly enlarged. 9. There is mild to moderate aortic valve sclerosis. 10. Mild mitral annular calcification present. 11. There is trace to mild mitral regurgitation. 12. Moderate to severe tricuspid regurgitation present. 13. There is mild to moderate pulmonary hypertension. 14. The right ventricular systolic pressure, as measured by Doppler, is 51.70mmHg. 15. The pulmonic valve was not well visualized. 16. The aortic root size is normal. 17. There is no pericardial effusion. FLEET TECHNICIAN: Meño Easley RDCS
[2017-10-01] MEDS ORDERED: LEVOFLOXACIN 750 MG TAB PO SCH (19:00)
[2017-10-01] MEDS ORDERED: LEVOFLOXACIN 750MG-D5W PMX 750 MG in DEXTROSE/WATER 1 150ML.BAG IVPB SCH (19:00)
[2017-10-01] MEDS: ATORVASTATIN 10 MG TAB PO SCH (19:51)
[2017-10-01] MEDS: DILTIAZEM ORAL 60 MG TAB PO SCH (19:53)
[2017-10-01] MEDS: ACETAMINOPHEN TAB 325 MG TAB PO PRN (20:39)
[2017-10-02] MEDS: ACETAMINOPHEN TAB 325 MG TAB PO PRN (03:37)
[2017-10-02] MEDS: WARFARIN 2 MG TAB PO SCH ×2 (03:37→19:11)
[2017-10-02] MEDS: LEVOTHYROXINE 25 MCG TAB PO SCH (06:35)
[2017-10-02 07:22] LABS: Anisocytosis Slight; Basophils % (A) 0 %; Eosinophils # (A) 0.1 k/uL (0-0.7); Eosinophils % (A) 2 %; HCT 32.7 % (34.0-46.0); HGB 10.3 gm/dL (11.4-16.0); Hypochromasia Slight; Lymphocytes # (A) 0.6 k/uL (1.0-4.8); Lymphocytes % (A) 9 %; MCH 26.9 pg (25.0-35.0); MCHC 31.4 g/dL (31.0-37.0); MCV 85.9 fL (80.0-100.0); Mean Platelet Volume 8.5; Monocytes # (A) 0.9 k/uL (0-1.0); Monocytes % (A) 15 %; Neutrophils # (A) 4.5 k/uL (1.3-7.7); Neutrophils % (A) 70 %; Platelet Count 175 k/uL (150-450); RBC 3.81 m/uL (3.80-5.40); RDW 16.8 % (11.5-15.5); WBC 6.4 k/uL (3.8-10.6)
[2017-10-02 07:25] LABS: Albumin 2.7 g/dL (3.5-5.0); Calcium 9.8 mg/dL (8.4-10.2); Potassium 3.4 mmol/L (3.5-5.1); Total Protein 5.1 g/dL (6.3-8.2)
[2017-10-02] MEDS ORDERED: NITROFURANTOIN MONOHYD/M-CRYST 100 MG CAP PO SCH (09:00)
[2017-10-02] MEDS: prednisoLONE ACETATE 1% OPHTH DROPS 5 ML BTL LEFT EYE SCH (09:16)
[2017-10-02] MEDS: SENNOSIDES-DOCUSATE SODIUM 1 EACH TAB PO SCH ×2 (09:17→20:19)
[2017-10-02] MEDS: POTASSIUM CHLORIDE ER 20 MEQ TAB.ER PO SCH ×2 (09:17→20:20)
[2017-10-02] MEDS: DILTIAZEM ORAL 60 MG TAB PO SCH ×3 (09:17→20:20)
[2017-10-02] MEDS: METOPROLOL TARTRATE 50 MG TAB PO SCH ×2 (09:17→20:19)
[2017-10-02] MEDS: ALLOPURINOL 300 MG TAB PO SCH (09:17)
[2017-10-02] MEDS: FAMOTIDINE 20 MG TAB PO SCH (09:17)
[2017-10-02] MEDS: PIPERACILLIN-TAZOBACTAM 3.375 GM in DEXTROSE/WATER 1 50ML.BAG IVPB SCH ×2 (09:18→20:21)
[2017-10-02] MEDS: FUROSEMIDE 10 MG/ML 4 ML VIAL IV SCH (09:18)
--- NOTE | 2017-10-02 15:04 | P.PN ---
Subjective Progress Note Date: 10/02/17 ThIs is a pleasant 81-year-old female who resides at an extended care facility. She was brought to the hospital because of fever and mild agitation. Patient has a known history of paroxysmal atrial fibrillation, dementia mild, blindness in the right eye, COPD, GERD, hypertension, hyperlipidemia, renal disease, hypothyroidism, she is quite hard of hearing however to speak loudly she answers appropriately. EKG on arrival here showed atrial fibrillation with a rapid ventricular response and nonspecific ST-T wave changes. Chest x-ray reveals suspicion of pneumonia in the right lower lobe and findings consistent with mild congestive heart failure. The pressure on arrival 160/70 with a heart rate of 144, 91% on room air. Temperature did go up to 101.8. Blood culture positive for gram-negative bacilli. Urine culture positive for gram- negative bacilli. White blood cell count yesterday 13.4, 9.1 this morning. Hemoglobin 13.2 with a hemoglobin of 10.2 this morning. Platelet count 179. INR on admission 5.5, subsequent 6.5, 1.5 this morning. Sodium 137, potassium 3.8, BUN 49, creatinine 1.8. AST 164, ALT 158, alk phos 255. Troponin 0.015, BNP 6380. Positive UTI. At the time of my examination this morning, patient continues to be in atrial fibrillation with a heart rate of 1:30. She denies palpitations at present but states when she exerts herself she can really feel her heart going fast. Breathing overall according to her has been stable. Patient was initiated on IV Cardizem in the emergency room she continues to be on at this time. Echocardiogram with Doppler study performed in February 2017 revealed an ejection fraction of 60-65%. 10/02/2017 Patient seen and examined this morning, does state that her breathing is improving overall. Diuresing a minimally on Lasix, weight is up a kilogram today according to the documentation. IV Lasix discontinued and patient was changed to oral diuretics. Creatinine 2.1, BUN 51, potassium 3.4. INR today is subtherapeutic at 1.5. Blood pressure 113/66 today. Echocardiogram with Doppler study shows an ejection fraction of 55-60%. Objective - Vital Signs Vital signs: Vital Signs Temp 97.8 F 10/02/17 11:22 Pulse 64 10/02/17 11:22 Resp 18 10/02/17 11:22 BP 113/61 10/02/17 11:22 Pulse Ox 96 10/02/17 11:22 Intake & Output 10/01/17 10/02/17 10/02/17 18:59 06:59 18:59 Intake Total 518.5 480 Output Total 400 1 200 Balance 118.5 -1 280 Weight 77.9 kg Intake: Intake, IV Titration 38.5 Amount Diltiazem 50 mg In Sodium 38.5 Chloride 0.9% 40 ml @ 5 MG/HR 5 mls/hr IV .Q10H [facility] Rx#:[id number] Oral 480 480 Output: Urine 400 200 Urine/Stool Mix 1 Other: Voiding Method Toilet Toilet # Voids 1 1 2 # Bowel Movements 0 0 - Exam PHYSICAL EXAMINATION: 81-year-old female in no apparent distress at the time of my examination HEENT: Head is atraumatic, normocephalic. Right eye partially close, cloudy. Neck is supple. There is no elevated jugular venous pressure. HEART EXAMINATION: Heart S1 and S2 irregularly irregular CHEST EXAMINATION: Lungs are clear with mild diminished air entry to the bases fine crackles heard to the right posterior base. ABDOMEN: Soft, nontender. Bowel sounds are heard. No organomegaly noted. EXTREMITIES: 2+ peripheral pulses with evidence of peripheral edema and no calf tenderness noted. NEUROLOGIC patient is awake, alert and oriented -2. - Labs CBC & Chem 7: 10/02/17 05:42 10/02/17 05:42 Labs: Abnormal Lab Results - Last 24 Hours (Table) 10/02/17 10/02/17 Range/Units 05:42 05:42 Hgb 10.3 L (11.4-16.0) gm/dL Hct 32.7 L (34.0-46.0) % RDW 16.8 H (11.5-15.5) % Lymphocytes # 0.6 L (1.0-4.8) k/uL Potassium 3.4 L (3.5-5.1) mmol/L Chloride 96 L (98-107) mmol/L BUN 51 H (7-17) mg/dL Creatinine 2.11 H (0.52-1.04) mg/dL AST 59 H (14-36) U/L ALT 87 H (9-52) U/L Alkaline Phosphatase 181 H (38-126) U/L Total Protein 5.1 L (6.3-8.2) g/dL Albumin 2.7 L (3.5-5.0) g/dL Microbiology - Last 24 Hours (Table) 09/29/17 17:37 Blood Culture Gram Stain - Final Blood Blood Culture - Final Escherichia coli 09/29/17 18:45 Urine Culture - Final Urine,Catheterized Escherichia coli Assessment and Plan Plan: Assessment and plan #1 fever with evidence of UTI, positive blood cultures positive urine cultures early on antibiotics. #2 atrial fibrillation with rapid ventricular response #3 history of paroxysmal atrial fibrillation on Coumadin for anticoagulation, INR 5.5 on admission, 1.5 morning. #4 hypertension Number 5 hyperlipidemia #6 acute on chronic renal insufficiency #7 congestive cardiac failure, could be secondary to atrial fibrillation with rapid ventricular response, likely diastolic in nature. LV function normal in February 2017. #8 abnormal liver enzymes, could be secondary to congestion. Plan From cardiology's perspective, we will continue current dose of oral diuretics. We will follow her along with you now on an as-needed basis only, please don' t hesitate to call with any questions. DNP note has been reviewed, I agree with a documented findings and plan of care. Patient was seen and examined.
[2017-10-02] MEDS: ATORVASTATIN 10 MG TAB PO SCH (20:20)
[2017-10-02] MEDS: SODIUM CHLORIDE 0.9% 1,000 ML IV SCH (20:21)
[2017-10-03 00:07] LABS: INR 1.2 (<1.2); Prothrombin Time 11.3 sec (9.0-12.0)
[2017-10-03] MEDS: LEVOTHYROXINE 25 MCG TAB PO SCH (06:04)
[2017-10-03 06:26] LABS: Anisocytosis Slight; HCT 33.1 % (34.0-46.0); HGB 10.4 gm/dL (11.4-16.0); MCH 26.4 pg (25.0-35.0); MCHC 31.3 g/dL (31.0-37.0); MCV 84.2 fL (80.0-100.0); Mean Platelet Volume 7.6; Platelet Count 188 k/uL (150-450); RBC 3.93 m/uL (3.80-5.40); RDW 16.6 % (11.5-15.5); WBC 5.7 k/uL (3.8-10.6)
[2017-10-03 06:35] LABS: Calcium 9.9 mg/dL (8.4-10.2); Potassium 3.1 mmol/L (3.5-5.1)
[2017-10-03 06:47] LABS: Eosinophils # (M) 0.06 k/uL (0-0.7); Lymphocytes # (M) 1.14 k/uL (1.0-4.8); Monocytes # (M) 0.63 k/uL (0-1.0); Neutrophils # (M) 3.88 k/uL (1.3-7.7); Neutrophils % (M) 68 %; Nucleated Red Blood Cells 0 /100 WBC (0-0); Total Cells Counted 100
[2017-10-03] MEDS: DILTIAZEM ORAL 60 MG TAB PO SCH ×3 (07:52→20:15)
[2017-10-03] MEDS: METOPROLOL TARTRATE 50 MG TAB PO SCH ×2 (07:52→20:15)
[2017-10-03] MEDS: METOLAZONE 5 MG TAB PO SCH (07:52)
[2017-10-03] MEDS: ALLOPURINOL 300 MG TAB PO SCH (07:52)
[2017-10-03] MEDS: FAMOTIDINE 20 MG TAB PO SCH (07:52)
[2017-10-03] MEDS: SENNOSIDES-DOCUSATE SODIUM 1 EACH TAB PO SCH ×2 (07:52→20:15)
[2017-10-03] MEDS: FUROSEMIDE 40 MG TAB PO SCH (07:52)
[2017-10-03] MEDS: prednisoLONE ACETATE 1% OPHTH DROPS 5 ML BTL LEFT EYE SCH (07:53)
[2017-10-03] MEDS: POTASSIUM CHLORIDE ER 20 MEQ TAB.ER PO SCH ×2 (07:53→20:15)
[2017-10-03] MEDS: PIPERACILLIN-TAZOBACTAM 3.375 GM in DEXTROSE/WATER 1 50ML.BAG IVPB SCH ×2 (07:59→20:15)
--- NOTE | 2017-10-03 09:11 | CDI ---
Last Revision, May 2017 Documentation Clarification Form Date: 10/03/2017 8:59:00 AM From: Lisa AmosCLAIR, CCDS Admit Date: 09/29/2017 9:51:00 PM Patient Name: Franko Sawyer Visit Number: [id number] Discharge Date: 10/08/2017 ATTENTION: The Clinical Documentation Specialists (CDI) and [facility] Coding Staff appreciate your assistance in clarifying documentation. Please respond to the clarification below the line at the bottom and electronically sign. The CDI & [facility] Coding staff will review the response and follow-up if needed. Please note: Queries are made part of the Legal Health Record. If you have any questions, please contact the author of this message via ITS. Dr. Anisa Benton: Per your 10/02 progress note: "Congestive cardiac failure, could be secondary to atrial fibrillation with rapid ventricular response, likely diastolic in nature. LV function normal in February 2017." History/Risk Factors: Paroxysmal Atrial Fibrillation, COPD, GERD, Hypertension, Hyperlipidemia.. Clinical Indicators: VS: T 97.2, P 144, R 28, BP 161/74, PO 91 RA BNP: 6380 Echocardiogram Results: Left ventricular systolic function is normal with EF between 55-60%. Chest X Ray: Pneumonia RLL, also findings consistent with mild CHF Treatment: po Lasix, IV Lasix 40 mg x1, IV Levaquin, Nitropaste, IV Cardizem, IV Zosyn, Albuterol INH, O2 2Lnc In your professional opinion, can you please clarify the acuity and type of CHF if known? Diastolic Heart Failure: o Acute o Chronic o Acute on Chronic o Unable to Determine o Other, please specify Please continue to document in your progress notes and discharge summary in order to capture severity of illness and risk of mortality. Include clinical findings that support your diagnosis. MTDD
--- NOTE | 2017-10-03 11:31 | P.PN ---
Subjective Progress Note Date: 10/01/17 Ms. Sawyer is an 81-year-old female with a past medical history of COPD, Dementia, GERD/Reflux, Hyperlipidemia, Hypertension, Renal Disease, Respiratory Disorder, Thyroid Disorder, hard of hearing, right eye blindness sent from her intermediate for fever and agitation. Patient is very hard of hearing and so most of the history is taken from the ED note and nursing staff report. Patient states that she has been feeling sick but could not give the details. She stated that she was feeling sick. In the ED the patient was found to have atrial fibrillation with rapid ventricular rate was started on IV Cardizem drip. The drip has been discontinued as patient's heart rate is in between 90s to 100s. She was also found to have urine positive for nitrates and the chest x-ray positive for an infiltrate for which she has been started on Zosyn and Levaquin. On 10/01/17 - Patient's blood culture and urine cultures have been positive for E. coli. She is lying comfortably in the bed. Overnight no acute events as per nursing staff report. Patient states that she feels much better compared to yesterday. Review of Systems REVIEW OF SYSTEMS: HEENT: Patient very hard of hearing NEURO:No c/o weakness of the extremties, No facial droop, No speech abnormalities. RESPIRATORY: No cough, No SOB, No chest discomfort. OPHTHALMOLOGIC: She is blind in the right eye : No dysuria or hematuria CARDIAC: Patient mentions that she has palpitations when she gets up and moves around GI: No abdominal pain, Nausea or vomiting. No constipation or diarrhea. Objective - Vital Signs Vital signs: Vital Signs Temp 98.1 F 10/01/17 20:00 Pulse 94 10/01/17 20:00 Resp 18 10/01/17 20:00 BP 160/72 10/01/17 20:00 Pulse Ox 94 L 10/01/17 20:00 Intake & Output 10/01/17 10/01/17 10/02/17 06:59 18:59 06:59 Intake Total 600 518.5 Output Total 400 1 Balance 600 118.5 -1 Weight 76.7 kg Intake: Intake, IV Titration 600 38.5 Amount Diltiazem 50 mg In Sodium 38.5 Chloride 0.9% 40 ml @ 5 MG/HR 5 mls/hr IV .Q10H [facility] Rx#:[id number] Sodium Chloride 0.9% 1, 600 000 ml @ 75 mls/hr IV . [id number] [facility] Rx#:[id number] Oral 480 Output: Urine 400 Urine/Stool Mix 1 Other: Voiding Method Toilet Toilet Toilet # Voids 6 1 1 # Bowel Movements 0 - Exam GEN. APPEARANCE: alert, in no apparent distress HEAD EXAM: atraumatic, normocephalic, normal inspection EYE EXAM: right eye is completely white ENT EXAM: normal exam, mucous membranes moist NECK EXAM: normal inspection. Absent: tenderness, meningismus, full ROM, lymphadenopathy RESPIRATORY EXAM: decaresed breath sounds in all lung jaime. No crackles at the lower lung bases CARDIOVASCULAR EXAM: Irregularly irregular GI/ABDOMINAL EXAM: soft, normal bowel sounds. Absent: distended, tenderness, guarding, rebound, rigid EXTREMITIES EXAM: mild Bilateral pitting edema NEUROLOGICAL EXAM: alert, oriented X3, no focal deficits on gross exam PSYCHIATRIC EXAM: normal affect, normal mood SKIN EXAM: warm, dry, intact, normal color. Absent: rash - Labs CBC & Chem 7: 10/01/17 05:56 10/01/17 05:56 Labs: Abnormal Lab Results - Last 24 Hours (Table) 10/01/17 10/01/17 10/01/17 Range/Units 05:56 05:56 05:56 Hgb 10.4 L (11.4-16.0) gm/dL Hct 33.9 L (34.0-46.0) % MCHC 30.6 L (31.0-37.0) g/dL RDW 16.8 H (11.5-15.5) % Lymphocytes # 0.6 L (1.0-4.8) k/uL PT 13.9 H (9.0-12.0) sec INR 1.5 H (<1.2) BUN 49 H (7-17) mg/dL Creatinine 1.88 H (0.52-1.04) mg/dL Microbiology - Last 24 Hours (Table) 09/29/17 17:37 Blood Culture Gram Stain - Final Blood Blood Culture - Final Escherichia coli 09/29/17 18:45 Urine Culture - Final Urine,Catheterized Escherichia coli Assessment and Plan Assessment: ASSESSMENT Sepsis secondary to pneumonia and UTI Right lower lobe pneumonia Acute on chronic hypoxic respiratory insufficiency Urinary tract infection possibly gram-negative organisms Atrial fibrillation with rapid ventricular rate Sub-Therapeutic INR - at 1.5 - resume Coumadin and follow PT/INR Elevated liver function tests - can be secondary to hypotension Acute kidney injury - prerenal Mild protein calorie malnutrition PLAN Patient has been started on IV Zosyn and Levaquin for her UTI and pneumonia which will be continued. Patient's blood culture and urine cultures have been positive for E. coli. . Vitamin K 10 mg was given yesterday as her INR was 6.5 butt today it is 1.5, so will resume her Coumadin . Patient's atrial fibrillation is rate controlled now, Cardiology following . We'll continue with the rest of her home medication regimen. Patient is a DO NOT RESUSCITATE. Further recommendations to follow depending on the progress of the patient.
--- NOTE | 2017-10-03 11:34 | P.PN ---
Subjective Progress Note Date: 10/02/17 Principal diagnosis: Sepsis Ms. Sawyer is an 81-year-old female with a past medical history of COPD, Dementia, GERD/Reflux, Hyperlipidemia, Hypertension, Renal Disease, Respiratory Disorder, Thyroid Disorder, hard of hearing, right eye blindness sent from her [facility] for fever and agitation. Patient is very hard of hearing and so most of the history is taken from the ED note and nursing staff report. Patient states that she has been feeling sick but could not give the details. She stated that she was feeling sick. In the ED the patient was found to have atrial fibrillation with rapid ventricular rate was started on IV Cardizem drip. The drip has been discontinued as patient's heart rate is in between 90s to 100s. She was also found to have urine positive for nitrates and the chest x-ray positive for an infiltrate for which she has been started on Zosyn and Levaquin. On 10/01/17 - Patient's blood culture and urine cultures have been positive for E. coli. She is lying comfortably in the bed. Overnight no acute events as per nursing staff report. Patient states that she feels much better compared to yesterday. On 10/02/17 - Patient is lying in the bed comfortably. She does not have any active complaints. Overnight no active issues.She states that her difficulty in breathing has improved . Patient's creatinine has been increased most likely because she has been getting high doses of IV Lasix. chnaged to PO for tomorrow./ Her heart rate is under much better controlled compared to yesterday. PT/OT consult and possible discharge in next 24 hrs with renal function improvement. Review of Systems REVIEW OF SYSTEMS: HEENT: Patient very hard of hearing NEURO:No c/o weakness of the extremties, No facial droop, No speech abnormalities. RESPIRATORY: No cough, No SOB, No chest discomfort. OPHTHALMOLOGIC: She is blind in the right eye : No dysuria or hematuria CARDIAC: Patient mentions that she has palpitations when she gets up and moves around GI: No abdominal pain, Nausea or vomiting. No constipation or diarrhea. Objective - Vital Signs Vital signs: Vital Signs Temp 97.8 F 10/02/17 11:22 Pulse 64 10/02/17 11:22 Resp 18 10/02/17 11:22 BP 113/61 10/02/17 11:22 Pulse Ox 96 10/02/17 11:22 Intake & Output 10/01/17 10/02/17 10/02/17 18:59 06:59 18:59 Intake Total 518.5 605 Output Total 400 1 200 Balance 118.5 -1 405 Weight 77.9 kg Intake: Intake, IV Titration 38.5 Amount Diltiazem 50 mg In Sodium 38.5 Chloride 0.9% 40 ml @ 5 MG/HR 5 mls/hr IV .Q10H [facility] Rx#:[id number] Oral 480 605 Output: Urine 400 200 Urine/Stool Mix 1 Other: Voiding Method Toilet Toilet # Voids 1 1 5 # Bowel Movements 0 0 - Exam GEN. APPEARANCE: alert, in no apparent distress HEAD EXAM: atraumatic, normocephalic, normal inspection EYE EXAM: right eye is completely white ENT EXAM: normal exam, mucous membranes moist NECK EXAM: normal inspection. Absent: tenderness, meningismus, full ROM, lymphadenopathy RESPIRATORY EXAM: decaresed breath sounds in all lung jaime. few crackles at the lower lung bases CARDIOVASCULAR EXAM: Irregularly irregular GI/ABDOMINAL EXAM: soft, normal bowel sounds. Absent: distended, tenderness, guarding, rebound, rigid EXTREMITIES EXAM: mild Bilateral pitting edema NEUROLOGICAL EXAM: alert, oriented X3, no focal deficits on gross exam PSYCHIATRIC EXAM: normal affect, normal mood SKIN EXAM: warm, dry, intact, normal color. Absent: rash - Labs CBC & Chem 7: 10/03/17 05:31 10/03/17 05:31 Labs: Abnormal Lab Results - Last 24 Hours (Table) 10/02/17 10/02/17 Range/Units 05:42 05:42 Hgb 10.3 L (11.4-16.0) gm/dL Hct 32.7 L (34.0-46.0) % RDW 16.8 H (11.5-15.5) % Lymphocytes # 0.6 L (1.0-4.8) k/uL Potassium 3.4 L (3.5-5.1) mmol/L Chloride 96 L (98-107) mmol/L BUN 51 H (7-17) mg/dL Creatinine 2.11 H (0.52-1.04) mg/dL AST 59 H (14-36) U/L ALT 87 H (9-52) U/L Alkaline Phosphatase 181 H (38-126) U/L Total Protein 5.1 L (6.3-8.2) g/dL Albumin 2.7 L (3.5-5.0) g/dL Microbiology - Last 24 Hours (Table) 09/29/17 17:37 Blood Culture Gram Stain - Final Blood Blood Culture - Final Escherichia coli 09/29/17 18:45 Urine Culture - Final Urine,Catheterized Escherichia coli Assessment and Plan Assessment: ASSESSMEN Sepsis secondary to pneumonia and UTI Right lower lobe pneumonia Acute on chronic hypoxic respiratory insufficiency Urinary tract infection possibly gram-negative organisms Atrial fibrillation with rapid ventricular rate/controlled now. Sub-Therapeutic INR - at 1.5 - resume Coumadin and follow PT/INR Elevated liver function tests - can be secondary to hypotension Acute kidney injury - prerenal - worsened due to overt diuresis Mild protein calorie malnutrition PLAN Will c/w IV Zosyn and Levaquin for her UTI and pneumonia. Patient's blood culture and urine cultures have been positive for E. coli. . Patient's creatinine has been trending up most likely secondary to IV Lasix. Today her dose has been decreased. Overall patient shows significant improvement in her symptoms. Vitamin K 10 mg was given as her INR was 6.5 , yesterday it is 1.5, so resumed her 2 mg Coumadin. Will monitor PT/INR . Patient's atrial fibrillation is rate controlled now, Cardiology following . We'll continue with the rest of her home medication regimen. Patient is a DO NOT RESUSCITATE. Further recommendations to follow depending on the progress of the patient. Time with Patient: Greater than 30
[2017-10-03 13:53] LABS: INR 1.1 (<1.2); Prothrombin Time 10.9 sec (9.0-12.0)
[2017-10-03] MEDS ORDERED: Potassium Replacement Protocol 1 EACH MISC MISCELLANE PRN (15:51)
[2017-10-03] MEDS ORDERED: POTASSIUM CHLORIDE ER 20 MEQ TAB.ER PO SCH (16:00)
[2017-10-03] MEDS: WARFARIN 2 MG TAB PO SCH (16:53)
[2017-10-03] MEDS ORDERED: LEVOFLOXACIN 500 MG TAB PO SCH (20:00)
[2017-10-03] MEDS: SODIUM CHLORIDE 0.9% 1,000 ML IV SCH (20:11)
[2017-10-03] MEDS: ATORVASTATIN 10 MG TAB PO SCH (20:15)
--- NOTE | 2017-10-03 20:40 | PN ---
PROGRESS NOTE Remains on multiple drugs: Levaquin, Zosyn. Cardiology saw the patient, ordered an echo. She was found to have atrial fibrillation, rapid ventricular response. She has been placed on Cardizem drip. Ejection fraction was 55-60. Creatinine is over 2. CARDIOVASCULAR: Irregular irregular rhythm. LUNGS: Transmitted upper sounds. HEMATOLOGY: Negative Homans'. PSYCH: Fair mood and affect. ASSESSMENT: 1. Atrial fibrillation rapid ventricular response. 2. Chronic renal disease, stage 3, worsening renal function overnight. 3. Chronic obstructive pulmonary disease. 4. Dementia. 5. Gastroesophageal reflux disease. 6. Dyslipidemia. 7. Hypertension. 8. Renal disease. 9. Hypothyroidism. 10.Hard of hearing. 11.Diastolic congestive heart failure. 12.Being treated for empiric pneumonia, long term acquired on Zosyn and Levaquin. 13.Blood cultures and urine cultures positive for Escherichia coli. She has p.o. antibiotics tomorrow most likely. Possible discharge home soon to the rehab center. 14.Sepsis secondary to pneumonia. 15.Urinary tract infection. 16.Right lower lobe pneumonia. 17.Acute on chronic and. 18.Hypoxemic respiratory insufficiency. 19.Atrial fibrillation. 20.Subtherapeutic INR. 21.Elevated liver enzymes. 22.Acute kidney injury. 23.Mild protein-calorie malnutrition. PLAN: Continue with IV Zosyn, Levaquin. Vitamin K was given for her high INR. Resume her 2 mg of Coumadin. Further orders please see in the chart. MMODL / IJN: [id number] /
[2017-10-03] MEDS: ERTAPENEM 1 GM in SODIUM CHLORIDE 0.9% 50 ML IVPB SCH (22:09)
[2017-10-03] MEDS: ACETAMINOPHEN TAB 325 MG TAB PO PRN (22:17)
[2017-10-04] MEDS: ALPRAZolam 0.25 MG TAB PO PRN ×2 (02:09→20:49)
[2017-10-04 06:26] LABS: Anisocytosis Slight; Basophils % (A) 0 %; Eosinophils # (A) 0.2 k/uL (0-0.7); Eosinophils % (A) 4 %; HCT 33.8 % (34.0-46.0); HGB 10.3 gm/dL (11.4-16.0); Hypochromasia Slight; Lymphocytes % (A) 20 %; MCHC 30.4 g/dL (31.0-37.0); MCV 85.7 fL (80.0-100.0); Monocytes # (A) 0.5 k/uL (0-1.0); Monocytes % (A) 10 %; Neutrophils # (A) 3.1 k/uL (1.3-7.7); Neutrophils % (A) 62 %; Platelet Count 197 k/uL (150-450); RBC 3.95 m/uL (3.80-5.40); RDW 16.6 % (11.5-15.5); WBC 4.9 k/uL (3.8-10.6)
[2017-10-04] MEDS: LEVOTHYROXINE 25 MCG TAB PO SCH (06:39)
[2017-10-04 06:44] LABS: Albumin 2.7 g/dL (3.5-5.0); Potassium 3.4 mmol/L (3.5-5.1); Total Bilirubin 0.3 mg/dL (0.2-1.3)
--- NOTE | 2017-10-04 08:23 | US ---
EXAMINATION TYPE: US renals and bladder DATE OF EXAM: 10/04/2017 COMPARISON: NONE CLINICAL HISTORY: UTI/Bacteremia. EXAM MEASUREMENTS: Right Kidney: 6.4 x 2.9 x 2.9 cm Left Kidney: 9.9 x 4.3 x 3.3 cm Patient unable to cooperate with examiner. Right Kidney: atrophied Left Kidney: partially obscured by overlying bowel gas, portions visualized wnl Bladder: wnl No obvious hydronephrosis or nephrolithiasis. IMPRESSION: Limited exam as discussed above demonstrates atrophic change involving the right kidney.
[2017-10-04] MEDS: METOPROLOL TARTRATE 50 MG TAB PO SCH ×2 (08:42→20:39)
[2017-10-04] MEDS: ALLOPURINOL 100 MG TAB PO SCH (08:42)
[2017-10-04] MEDS: POTASSIUM CHLORIDE ER 20 MEQ TAB.ER PO SCH ×2 (08:42→20:39)
[2017-10-04] MEDS: DILTIAZEM ORAL 60 MG TAB PO SCH ×3 (08:42→20:39)
[2017-10-04] MEDS: FAMOTIDINE 20 MG TAB PO SCH (08:42)
[2017-10-04] MEDS: FUROSEMIDE 40 MG TAB PO SCH (08:42)
[2017-10-04] MEDS: SENNOSIDES-DOCUSATE SODIUM 1 EACH TAB PO SCH ×2 (08:43→20:39)
[2017-10-04] MEDS: prednisoLONE ACETATE 1% OPHTH DROPS 5 ML BTL LEFT EYE SCH (08:43)
[2017-10-04] MEDS: ERTAPENEM 1 GM in SODIUM CHLORIDE 0.9% 50 ML IVPB SCH (09:59)
--- NOTE | 2017-10-04 10:38 | P.NPCON ---
History of Present Illness - Reason for Consult chronic renal failure - History of Present Illness Patient is a 81-year-old white female who has history of chronic kidney disease NKF stage IIIB secondary to nephrosclerosis and asymmetric kidneys with atrophic right kidney. Baseline creatinine about 1.6-1.7 mg/dL. Patient is very hard of hearing and does not have her hearing aid batteries therefore it is difficult to communicate with her. Patient was admitted to the hospital as she was feeling sick. She was found to be in A. fib with RVR and was maintained on IV Cardizem. It is now oral. Serum creatinine has been about 2-2.1 mg/dL. Patient's blood pressure is not low. She is not maintained on any nephrotoxic medications. Patient is currently on oral Lasix and Zaroxolyn. Review of Systems As per HPI other systems negative Past Medical History Past Medical History: Heart Failure, COPD, Dementia, GERD/Reflux, Hyperlipidemia , Hypertension, Renal Disease, Respiratory Disorder, Thyroid Disorder Additional Past Medical History / Comment(s): Pt was born with cleft palate and other physical problems with facial structures including nasal passages and ear canals and festus at bedside states that the ear canals are collapsing. 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 Last Myocardial Infarction Date:: unknown History of Any Multi-Drug Resistant Organisms: ESBL Date of last positivie culture/infection: 09/29/17 MDRO Source:: ESBL URINE Past Surgical History: Bladder Surgery, Joint Replacement, Orthopedic Surgery Additional Past Surgical History / Comment(s): Pt has had multiple surgeries for defects affecting mouth, nose and ears, total L knee arthroplasty, bladder sling, fistula L arm. Past Anesthesia/Blood Transfusion Reactions: No Reported Reaction Past Psychological History: No Psychological Hx Reported Additional Psychological History / Comment(s): Pt now resides at [facility] on the [place]. She was getting around in a wheelchair. She wears O2 at 3L/NC. She gets updraft treatments 4 times a day. She is on a regular thin consistency diet and ensure plus bwice a day. Smoking Status: Former smoker Past Alcohol Use History: None Reported Additional Past Alcohol Use History / Comment(s): Pt quit smoking in 1966. Past Drug Use History: None Reported - Past Family History Father Family Medical History: Cancer Additional Family Medical History / Comment(s): Father prior to age 60 yrs with esophageal cancer. He was a smoker and a drinker. Mother Family Medical History: Osteoarthritis (OA), Renal Disease, Rheumatoid Arthritis (RA) Additional Family Medical History / Comment(s): kidney problems, specific type unknown Medications and Allergies Home Medications Medication Instructions Recorded Confirmed Type Allopurinol [Zyloprim] 300 mg PO DAILY 02/16/17 09/30/17 History Dicyclomine HCl 10 mg PO Q6H 02/16/17 09/30/17 History Fluticasone Nasal [place] [Flonase 1 spray EA NOSTRIL Q12H 02/16/17 09/30/17 History Nasal [place]] Levothyroxine Sodium [Synthroid] 25 mcg PO DAILY@0600 02/16/17 09/30/17 History Acetaminophen Tab [Tylenol] 650 mg PO Q6HR PRN tab 02/20/17 09/30/17 Rx ALPRAZolam [Xanax] 0.25 mg PO HS 04/12/17 09/30/17 History Albuterol Nebulized [Ventolin 2.5 mg INHALATION RT-Q4H PRN 04/12/17 09/29/17 History Nebulized] Atorvastatin [Lipitor] 10 mg PO HS 04/12/17 09/30/17 History Buprenorphine [Butrans 10 MCG/HOUR] 1 patch TRANSDERM TU 04/12/17 09/30/17 History Ergocalciferol (Vitamin D2) 50,000 unit PO Q30D 04/12/17 09/30/17 History [Vitamin D2] Loratadine [Claritin] 10 mg PO DAILY PRN 04/12/17 09/30/17 History Metolazone [Zaroxolyn] 5 mg PO MOTH 04/12/17 09/30/17 History Metoprolol Tartrate [Lopressor] 50 mg PO BID@0900,1700 04/12/17 09/30/17 History Potassium Chloride [Klor-Con 20] 20 meq PO BID@0900,1700 04/12/17 09/30/17 History Ranitidine HCl [Zantac] 150 mg PO BID@0600,1700 04/12/17 09/30/17 History guaiFENesin [guaiFENesin Oral 200 mg PO Q4HR PRN 04/12/17 09/30/17 History Solution] hydrALAZINE HCL [Apresoline] 50 mg PO TID 04/12/17 09/30/17 History prednisoLONE ACETATE [Pred Forte 2 drop LEFT EYE DAILY 04/12/17 09/30/17 History 1%] Magnesium Hydroxide [Milk of 2,400 mg PO DAILY PRN ml 04/15/17 09/30/17 Rx Magnesia Concentrate] Sennosides-Docusate Sodium 1 tab PO BID #60 tablet 04/15/17 09/30/17 Rx [Senokot-S] Ferrous Sulfate [Feosol] 325 mg PO BID@0900,1700 09/30/17 09/30/17 History Furosemide [Lasix] 20 mg PO DAILY@0600 09/30/17 09/30/17 History HYDROcodone/APAP 5-325MG [[place] 1 - 2 tab PO Q4HR PRN 09/30/17 09/30/17 History 5-325] Latanoprost [Xalatan 0.005%] 1 drop LEFT EYE HS 09/30/17 09/30/17 History Melatonin 3 mg PO HS PRN 09/30/17 09/30/17 History SILVER sulfADIAZINE CREAM 1 applic TOPICAL BID 09/30/17 09/30/17 History [Silvadene Cream] Triad Hydrophilic Wound Paste 1 applic TOPICAL Q12H 09/30/17 09/30/17 History Vit C/E/Zn/Coppr/Lutein/Zeaxan 1 cap PO BID 09/30/17 09/30/17 History [Preservision Areds 2 Softgel] Warfarin [Coumadin] 2 mg PO MOTUWEFRSA 09/30/17 09/30/17 History acetaZOLAMIDE [Diamox] 250 mg PO TU 09/30/17 09/30/17 History Allergies Allergy/AdvReac Type Severity Reaction Status Date / Time No Known Allergies Allergy Verified 09/30/17 09:38 Physical Exam Vitals: Vital Signs Temp Pulse Resp BP Pulse Ox 10/04/17 08:00 97.3 F L 77 18 152/85 10/04/17 04:00 98.8 F 86 17 150/91 92 L 10/04/17 00:00 98.0 F 61 17 146/73 96 10/03/17 20:00 97.9 F 67 17 136/80 97 10/03/17 16:00 97.8 F 72 16 117/68 99 10/03/17 12:12 97.7 F 69 16 122/67 96 Intake and Output 10/03/17 10/04/17 10/04/17 22:59 06:59 14:59 Intake Total 125 100 118 Balance 125 100 118 Intake: IV 100 Ertapenem 1 gm In Sodium 50 Chloride 0.9% 50 ml @ 100 mls/hr IVPB DAILY DEEPTI Rx #:[id number] Sodium Chloride 0.9% 1, 50 000 ml @ 20 mls/hr IV . Q24H DEEPTI Rx#:[id number] Oral 125 118 Other: Voiding Method Toilet Toilet # Voids 1 1 1 # Bowel Movements 1 Weight 61 kg On examination patient is comfortable awake she is not in any acute distress blood pressure 152/85 heart rate 77/m. She is afebrile Examination of the heart S1 and S2 Exertion lungs bilateral breath sounds are heard Abdomen is soft nontender Examination lower extremity shows no significant edema. 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 Acute kidney injury currently nonoliguric secondary to hemodynamic instability with A. fib with RVR and from sepsis currently with stable renal function. Serum creatinine has been staying at about 2-2.1 mg/dL. I will continue with current doses of diuretics. Patient will need to continue to follow-up as outpatient. 2. Chronic kidney disease NKF stage IIIB with baseline creatinine about 1.7 mg/ dL etiology is nephrosclerosis and right renal atrophy. 3. E. coli urinary tract infection and bacteremia and sepsis currently improved 4. Hypokalemia secondary to diuretics will replace 5. COPD currently stable 6. A. fib with RVR status post IV Cardizem currently maintained on oral Cardizem and Lopressor with heart rate staying in the 90s Plan Replace potassium continue current dose of diuretics. Continue to maintain follow-up as outpatient for CK D. Check magnesium level. thank you for the consultation we'll continue to follow the patient with you during her hospitalization
--- NOTE | 2017-10-04 16:02 | CONS ---
CONSULTATION DATE OF SERVICE: 10/04/2017. REASON FOR CONSULTATION: ESBL E coli bacteremia and urinary tract infection infection. HISTORY OF PRESENT ILLNESS: The patient is an 81-year-old female who was sent to the hospital from the [place] [facility] for evaluation of a new fever with mental status changes. Apparently the patient apparently appeared agitated and noticed to have elevated heart rate. Patient on arrival to the ER did have a fever of 101.8 degrees Fahrenheit. The patient was tachycardic with heart rate in the 140s to 110s and the patient did have an elevated white count 13.4, with features of sepsis. The patient has been admitted to hospital with significantly positive UA the patient has been treated with Zosyn and Levaquin. Infectious Disease was not consulted until last evening when the culture came back positive for ESBL E coli both in the blood and in the urine. The patient was seen on rounds this morning. The patient is very hard of hearing and told me that she does not have batteries for hearing aid and was not able to hear me. It was very hard to communicate with her. Most of the information has been obtained from thorough review of the chart. REVIEW OF SYSTEMS: Could not be reliably obtained. The positive points have been mentioned in HPI. PAST MEDICAL HISTORY: Significant for heart failure, COPD, dementia, gastroesophageal reflux disease, hyperlipidemia, hypertension, renal insufficiency, hypothyroidism, previous history of ESBL UTI. PAST SURGICAL HISTORY: Bladder surgery, multiple defects, left knee arthroplasty, left arm fistula. SOCIAL HISTORY: Remote history of smoking. Quit back in . No drinking or drug use. FAMILY HISTORY: Father with a history of esophageal cancer. Mother with history of osteoarthritis and rheumatoid arthritis. ALLERGIES: No known drug allergies. MEDICATION: Medications include the patient is currently on Tylenol, [place], Ventolin, Zyloprim, Xanax, Lipitor, Cardizem, ertapenem, Pepcid, Lasix, Synthroid, Zaroxolyn, Lopressor, K- Dur, Senokot, Coumadin. EXAMINATION: Blood pressure is 156/70 with a pulse of 72, temperature 98.2, she is 98% on room air. General description is an elderly female, lying in bed in no distress. No tachypnea or accessory muscles of respiration use. HEENT: Shows slight pallor. No scleral icterus. Oral mucosa membranes are dry. No pharyngeal erythema or thrush. Neck trachea central. No thyromegaly. Lungs unlabored breathing, clear to auscultation anteriorly. No wheeze or crackles. Heart S1, S2. Irregular rhythm. ABDOMEN: Soft, no tenderness. No guarding or rigidity. EXTREMITIES: No edema of feet. Skin examination: No rash or mass palpable. Neurologic: Very hard to communicate hence orientation could not be determined. LABS: Hemoglobin 10.3, white count 4.7, admission white count 13.4 with a BUN of 45, creatinine 2.10. Potassium 3.4. Liver enzymes are normal. Urine was positive in a patient with moderate with many bacteria. Cultures with an ESBL E coli. Blood culture positive for ESBL E coli. DIAGNOSTIC IMPRESSION AND PLAN: Patient admitted to the hospital with sepsis, source is ESBL E coli urinary tract infection in a patient who did have a previous history of the same. We did order an ultrasound last night infectious abnormality. Ultrasound did show some medical renal disease, but no evidence of any hydronephrosis or stones. The patient is currently afebrile and white count has normalized. PLAN: 1. We will ordered a Medline for her as the patient needs to be on IV Invanz for at least 2 weeks from negative blood culture. 2. Blood culture has been ordered last night to document clearance of her bacteremia. 3. Once the patient gets the Medline as the patient at [facility] resident, she can go back to finish her antibiotic therapy at the [facility]. Thank you for this consultation. We will follow this patient along with you. MMODL / IJN: [id number] /
[2017-10-04] MEDS: WARFARIN 2 MG TAB PO SCH (16:24)
[2017-10-04] MEDS: ATORVASTATIN 10 MG TAB PO SCH (20:39)
[2017-10-04] MEDS: SODIUM CHLORIDE 0.9% 1,000 ML IV SCH (20:40)
[2017-10-05] MEDS: LEVOTHYROXINE 25 MCG TAB PO SCH (06:17)
[2017-10-05 07:47] LABS: INR 1.3 (<1.2); Prothrombin Time 12.3 sec (9.0-12.0)
[2017-10-05 09:31] LABS: Calcium 9.9 mg/dL (8.4-10.2); Potassium 3.5 mmol/L (3.5-5.1)
--- NOTE | 2017-10-05 09:48 | PN ---
PROGRESS NOTE DATE OF SERVICE: 10/04/17 SUBJECTIVE: 81-year-old white female admitted with pneumonia, urinary tract infection. Dr. Alejandre consult he is waiting to get final cultures to determine IV antibiotics. Otherwise, she may be able to get discharged home soon or to the rehab center. Cardiovascular S1, S2. Lungs clear. GI soft. Hematology negative Homans. Hearing is poor. ASSESSMENT: 1. Healthcare acquired pneumonia. 2. Acute hypoxemic respiratory failure secondary to above. 3. Diastolic congestive heart failure. 4. Generalized weakness. Please see further orders. Possible discharge home next 24-48 hours on IV antibiotics versus oral pending Dr. Alejandre's recommendation. MMODL / IJN: [id number] /
--- NOTE | 2017-10-05 09:48 | PN ---
PROGRESS NOTE Patient is seen for followup for acute kidney injury on top of chronic kidney disease. She has ESBL and E coli a UTI and bacteremia. The patient is maintained on Ertapenem. She feels fairly well. The patient does not have a hearing aid and it is very difficult hard for her to hear. Currently, she is maintained on oral Lasix and Zaroxolyn. PHYSICAL EXAMINATION: Blood pressure is 159/87, heart rate 80 per minute. Patient is afebrile. Examination of the heart S1, S2. Examination lungs bilateral breath sounds are heard. Abdomen is soft, nontender. Examination lower extremity shows no significant edema. 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 LABS: Not available from today. Serum creatinine was 2.1 yesterday. ASSESSMENT: 1. Acute kidney injury secondary to sepsis, currently stable. The repeat labs today. 2. Chronic kidney disease stage 3 secondary to nephrosclerosis and a solitary kidney and at baseline creatinine about 1.5-1.7 mg/dL. 3. Right renal atrophy. 4. E coli, which is ESBL sepsis with the urinary tract infection and bacteremia, being followed by ID. 5. Chronic obstructive pulmonary disease, currently stable. 6. Atrial fibrillation with RVR, status post IV Cardizem, maintained on Lopressor and oral Cardizem. 7. Hypokalemia secondary to diuretics, status post replacement. PLAN: Check labs today. Continue current dose of diuretics. Continue antibiotics. MMODL / IJN: [id number] /
[2017-10-05] MEDS: METOPROLOL TARTRATE 50 MG TAB PO SCH ×2 (11:59→20:50)
[2017-10-05] MEDS: POTASSIUM CHLORIDE ER 20 MEQ TAB.ER PO SCH ×2 (11:59→20:50)
[2017-10-05] MEDS: ALLOPURINOL 100 MG TAB PO SCH (11:59)
[2017-10-05] MEDS: ERTAPENEM 1 GM in SODIUM CHLORIDE 0.9% 50 ML IVPB SCH (11:59)
[2017-10-05] MEDS: DILTIAZEM ORAL 60 MG TAB PO SCH ×3 (11:59→20:51)
[2017-10-05] MEDS: prednisoLONE ACETATE 1% OPHTH DROPS 5 ML BTL LEFT EYE SCH (12:00)
[2017-10-05] MEDS: FAMOTIDINE 20 MG TAB PO SCH (12:00)
[2017-10-05] MEDS: FUROSEMIDE 40 MG TAB PO SCH (12:00)
[2017-10-05] MEDS: SENNOSIDES-DOCUSATE SODIUM 1 EACH TAB PO SCH ×2 (12:00→20:51)
--- NOTE | 2017-10-05 17:06 | PN ---
PROGRESS NOTE SUBJECTIVE: An 81-year-old white female with acute kidney injury on top of chronic kidney disease. She has ESBL, E coli UTI and bacteremia, is on Ertapenem. She has had difficulty hearing. She needs a hearing aid. She is on oral Lasix, Zaroxolyn. Ultrasound of the renal system did not show any significant findings. The lungs are essentially clear. HEART: S1, S2. PSYCH: Fair mood and affect. GI: Soft. ASSESSMENT: 1. Acute kidney injury secondary to sepsis, chronic kidney disease stage III. Solitary kidney, baseline is 1.5 to 1.7, right renal atrophy, Escherichia coli, ESBL. 2. Chronic obstructive pulmonary disease. 3. Atrial fibrillation with rapid ventricular response. 4. Hypokalemia. PLAN: Will check her labs. Current dose diuretics. Continue antibiotics. PICC line will need to be placed and she will be transferred home in the next 48 [facility] with a PICC line for the next 2 weeks for IV antibiotics. MMODL / IJN: [id number] /
[2017-10-05] MEDS: WARFARIN 2 MG TAB PO SCH (17:11)
[2017-10-05] MEDS: ALPRAZolam 0.25 MG TAB PO PRN (17:11)
[2017-10-05] MEDS: ATORVASTATIN 10 MG TAB PO SCH (20:50)
[2017-10-05] MEDS: SODIUM CHLORIDE 0.9% 1,000 ML IV SCH (20:52)
[2017-10-06] MEDS: LEVOTHYROXINE 25 MCG TAB PO SCH (06:11)
[2017-10-06 06:48] LABS: Anisocytosis Slight; Basophils % (A) 0 %; Eosinophils # (A) 0.4 k/uL (0-0.7); Eosinophils % (A) 5 %; HCT 37.8 % (34.0-46.0); HGB 11.3 gm/dL (11.4-16.0); Hypochromasia Moderate; Lymphocytes # (A) 1.1 k/uL (1.0-4.8); Lymphocytes % (A) 15 %; MCH 26.2 pg (25.0-35.0); MCV 87.3 fL (80.0-100.0); Mean Platelet Volume 7.9; Monocytes # (A) 0.2 k/uL (0-1.0); Monocytes % (A) 2 %; Neutrophils # (A) 5.5 k/uL (1.3-7.7); Neutrophils % (A) 76 %; Platelet Count 212 k/uL (150-450); RBC 4.33 m/uL (3.80-5.40); RDW 16.7 % (11.5-15.5); WBC 7.3 k/uL (3.8-10.6)
[2017-10-06 07:16] LABS: Albumin 2.9 g/dL (3.5-5.0); Calcium 10.3 mg/dL (8.4-10.2); Total Bilirubin 0.3 mg/dL (0.2-1.3); Total Protein 5.4 g/dL (6.3-8.2)
[2017-10-06 08:47] LABS: INR 1.5 (<1.2); Prothrombin Time 14.1 sec (9.0-12.0)
[2017-10-06] MEDS: ERTAPENEM 1 GM in SODIUM CHLORIDE 0.9% 50 ML IVPB SCH (09:13)
[2017-10-06] MEDS: POTASSIUM CHLORIDE ER 20 MEQ TAB.ER PO SCH ×2 (09:14→20:25)
[2017-10-06] MEDS: METOPROLOL TARTRATE 50 MG TAB PO SCH ×2 (09:14→20:25)
[2017-10-06] MEDS: prednisoLONE ACETATE 1% OPHTH DROPS 5 ML BTL LEFT EYE SCH (09:14)
[2017-10-06] MEDS: DILTIAZEM ORAL 60 MG TAB PO SCH ×3 (09:14→20:25)
[2017-10-06] MEDS: FAMOTIDINE 20 MG TAB PO SCH (09:14)
[2017-10-06] MEDS: ALLOPURINOL 100 MG TAB PO SCH (09:14)
[2017-10-06] MEDS: FUROSEMIDE 40 MG TAB PO SCH (09:14)
[2017-10-06] MEDS: SENNOSIDES-DOCUSATE SODIUM 1 EACH TAB PO SCH ×2 (09:15→20:25)
--- NOTE | 2017-10-06 12:40 | PN ---
PROGRESS NOTE The patient is seen for followup for acute kidney injury and chronic kidney disease. Her renal function has been stable with creatinine staying at about 2 mg/dL. This morning when patient was seen, she was sleeping comfortably. She was easily arousable. Patient is very hard of hearing. She denies any significant complaints. EXAMINATION: Blood pressure is 144/88, heart rate 76 per minute. She is afebrile. Examination of the heart: S1, S2. Examination lungs: Bilateral breath sounds are heard. Abdomen is soft, nontender. Examination lower extremity shows no significant edema. 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 LABS: Sodium 138, potassium 4.0, chloride 96, BUN 40, serum creatinine 2.1, calcium 10.3, albumin 2.9. ASSESSMENT: 1. Chronic kidney disease stage III secondary to nephrosclerosis and solitary functioning kidney. Baseline creatinine about 1.5-1.7 mg/dL. Patient has an atrophic right kidney. 2. Acute kidney injury secondary to sepsis. Renal function is stable. No nephrotoxic agents on board. Patient is maintained on oral Lasix which we can continue for now. Encourage increased oral intake. 3. Sepsis with ESBL E coli urinary tract infection and bacteremia. 4. Chronic obstructive pulmonary disease, currently stable. 5. Atrial fibrillation with a RVR, currently with controlled ventricular response, maintained on Lopressor and Cardizem. 6. Hypokalemia, status post supplementation. PLAN: Continue oral Lasix. Encourage increased oral intake. The patient will follow up as outpatient. MMODL / IJN: [id number] /
[2017-10-06] MEDS: WARFARIN 2 MG TAB PO SCH (16:49)
--- NOTE | 2017-10-06 18:49 | PN ---
PROGRESS NOTE SUBJECTIVE: 81-year-old white female who remains with a ESBL and drug-resistant UTI with acute kidney injury. The creatinine stayed around 2, blood pressure 140s over 80s, heart rate 70s, respiratory rate 12 to 14. Lungs: Clear. GI: Soft. Hematologic: Negative Homans'. Sodium 138, potassium 4.0, BUN is 40, creatinine 2.1. ASSESSMENT: 1. Chronic kidney disease stage III due to solitary functioning kidney. 2. Sepsis making acute kidney injury worse. Continue with Lasix per Renal. 3. Sepsis with ESBL E coli urinary tract infection bacteremia. 4. Chronic obstructive pulmonary disease. 5. Atrial fibrillation with rapid ventricular response. 6. Hyperkalemia. IV antibiotics will be given. Potassium replacement will be given. Fluid rehydration will be given. A PICC line placement and then back to the rehab center is the plan. CLAUDIA / MIRTA: [id number] /
[2017-10-06] MEDS: ATORVASTATIN 10 MG TAB PO SCH (20:25)
[2017-10-06] MEDS: ACETAMINOPHEN TAB 325 MG TAB PO PRN (20:25)
--- NOTE | 2017-10-06 23:10 | PN ---
PROGRESS NOTE DATE OF SERVICE: 10/06/2017 REASON FOR FOLLOWUP: ESBL E. coli UTI and bacteremia. INTERVAL HISTORY: The patient is afebrile. She is currently breathing comfortably. Denies having any chest pain, cough. No nausea, vomiting or diarrhea. EXAMINATION: Her blood pressure is 156/73 with a pulse of 96, temperature 98. She is 93% on room air. General description is an elderly female lying in bed in no distress. RESPIRATORY SYSTEM: Unlabored breathing, clear to auscultation anteriorly. HEART: S1, S2. Regular rate and rhythm. ABDOMEN: Soft, no tenderness. LABS: Hemoglobin 11.2, white count 7.3. BUN of 40, creatinine 2.10. Blood culture repeat from 10/03/2017 has been negative. DIAGNOSTIC IMPRESSION AND PLAN: Patient with an ESBL E. coli bacteremia secondary to urinary source with repeat blood culture has been negative. The patient will need to continue on Invanz 1 g daily to finish a total 2 week course of therapy from negative blood culture because of her bacteremia. Continue with supportive care. MMODL / MEGHANNN: [id number] /
[2017-10-06] MEDS: SODIUM CHLORIDE 0.9% 1,000 ML IV SCH (23:47)
[2017-10-07] MEDS: ALPRAZolam 0.25 MG TAB PO PRN ×2 (01:16→23:15)
[2017-10-07] MEDS: LEVOTHYROXINE 25 MCG TAB PO SCH (06:24)
[2017-10-07] MEDS: FAMOTIDINE 20 MG TAB PO SCH (09:27)
[2017-10-07] MEDS: FUROSEMIDE 40 MG TAB PO SCH (09:27)
[2017-10-07] MEDS: SENNOSIDES-DOCUSATE SODIUM 1 EACH TAB PO SCH ×2 (09:27→21:22)
[2017-10-07] MEDS: DILTIAZEM ORAL 60 MG TAB PO SCH ×3 (09:27→21:22)
[2017-10-07] MEDS: METOPROLOL TARTRATE 50 MG TAB PO SCH ×2 (09:27→21:22)
[2017-10-07] MEDS: METOLAZONE 5 MG TAB PO SCH (09:27)
[2017-10-07] MEDS: POTASSIUM CHLORIDE ER 20 MEQ TAB.ER PO SCH ×2 (09:27→21:22)
[2017-10-07] MEDS: ALLOPURINOL 100 MG TAB PO SCH (09:27)
[2017-10-07] MEDS: ERTAPENEM 1 GM in SODIUM CHLORIDE 0.9% 50 ML IVPB SCH (09:28)
[2017-10-07] MEDS: prednisoLONE ACETATE 1% OPHTH DROPS 5 ML BTL LEFT EYE SCH (09:28)
--- NOTE | 2017-10-07 12:32 | PN ---
PROGRESS NOTE DATE OF SERVICE: 10/07/2017 REASON FOR FOLLOWUP: ESBL E coli bacteremia and UTI. INTERVAL HISTORY: The patient is afebrile. He is currently waiting for the midline placement. Denies having any chest pain. No cough. No abdominal pain and no diarrhea has been noticed. PHYSICAL EXAMINATION: Blood pressure 134/60 with a pulse of 79, temperature 97, she is 94% on room air. General description is an elderly female, lying in bed in no distress. RESPIRATORY SYSTEM: Unlabored breathing, clear to auscultation anteriorly. HEART: S1, S2. Regular rate and rhythm. ABDOMEN: Soft, no tenderness. LABS: No new labs been obtained today. Blood culture repeat 10/03 has been negative. DIAGNOSTIC IMPRESSION AND PLAN: Patient ESBL Escherichia coli bacteremia secondary to urinary source. She is currently on Invanz 0.5 g daily. She will continue for another 10 days to finish a 2-week course of therapy. Continue supportive care. MMODL / IJN: [id number] /
[2017-10-07] MEDS: WARFARIN 2 MG TAB PO SCH (14:20)
--- NOTE | 2017-10-07 19:35 | PN ---
PROGRESS NOTE Patient is sitting up on a bedside chair. She is currently comfortable. She denies any significant complaints. EXAMINATION: Blood pressure is 134/68, heart rate 75 per minute. Patient is afebrile. Examination of the heart: S1, S2. Examination lungs: Bilateral breath sounds are heard. Decreased breath sounds at bases. Abdomen is soft, nontender. Examination lower extremity shows trace edema bilaterally. 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 LABS: Not available from today. Serum creatinine was 2.1 yesterday. ASSESSMENT: 1. Chronic kidney disease stage III secondary to nephrosclerosis and solitary functioning kidney with baseline creatinine 1.5 to 1.7. The patient has an atrophic right kidney. 2. Acute kidney injury secondary to sepsis. Renal function stable with creatinine staying at about 2 mg/dL. No nephrotoxic agents on board. Patient is maintained on oral Lasix. 3. Sepsis with ESBL E coli urinary tract infection and bacteremia, currently improved significantly. 4. Chronic obstructive pulmonary disease. 5. Atrial fibrillation with rapid ventricular response on initial admission, currently with controlled ventricular response. 6. Hypokalemia, status post replacement. PLAN: Continue with the metolazone and current dose of Lasix. Followup as outpatient. MMODL / IJN: [id number] /
--- NOTE | 2017-10-07 21:20 | PN ---
PROGRESS NOTE SUBJECTIVE: 81-year-old white female with ESBL E coli bacteremia and UTI. PICC line in place. Awaiting Invanz 0.5 g daily for another 10 days for 2 week course of the PICC line. Blood cultures been negative. She is sitting up in bed. Blood pressure 134/60, pulse 79, respiratory 17, O2 94% on room air. Cardiovascular S1, S2. Lungs clear. GI soft. Hematology negative Homans. ASSESSMENT: ESBL E coli bacteremia secondary to urinary source. Continue on IV Invanz 0.5 g daily for another 10 days. PICC line placed today. Discharge home in the next 24 hours to a residential. MMODL / IJN: [id number] /
[2017-10-07] MEDS: ATORVASTATIN 10 MG TAB PO SCH (21:22)
--- NOTE | 2017-10-07 22:07 | DS ---
DISCHARGE SUMMARY DISCHARGE MEDICATIONS: 1. Ventolin nebulizer 2.5 mg q.4 hours p.r.n. 2. Zyloprim 200 mg daily. 3. Xanax 0.25 mg q.h.s. 4. Lipitor 10 mg daily. 5. Cardizem 60 mg b.i.d. 6. Ertapenem 0.5 g IV daily, IV piggyback. 7. Pepcid 20 mg daily. 8. Lasix 40 mg daily. 9. [place] 5/325 1 every 6 hours p.r.n. 10.Synthroid 25 mcg daily. 11.Zaroxolyn 5 mg p.o. Saturday, . 12.Lopressor 50 mg b.i.d. 13.K-Dur 20 mEq b.i.d. 14.Pred Forte 2 drops left eye daily. 15.Senna 1 tab p.o. b.i.d. 16.Coumadin 2 mg daily. 17.Silvadene cream b.i.d. to any wounds. 18.Pred Forte 1% 2 drops left eye daily. 19.Melatonin 3 mg q.h.s. p.r.n. 20.Claritin 10 mg daily. 21.Xalatan 1 drop left eye daily. 22.Vitamin D 50,000 units weekly. 23.Butrans patch 10 mcg/hour. 1 patch transdermal once a week. 24.Coumadin 2 mg daily. CONDITION: Stable. PROGNOSIS: Guarded. Ambulate as tolerated. DISCHARGE DIAGNOSES: 1. ESBL urinary tract infection. 2. Atrial fibrillation, rapid ventricular response. 3. Chronic renal disease stage III. 4. Acute kidney injury secondary to sepsis secondary to urinary tract infection. 5. Sepsis with ESBL E coli urinary tract infection. 6. Chronic obstructive pulmonary disease. 7. Hypokalemia. The patient was treated with IV antibiotics for multiple days, Cardizem drip switched to oral medicine for atrial fibrillation. Sepsis is treated acutely. PICC line was placed. Ten more days of IV Dr. Pablo Dooley's care. Medications for diuretics were kept the same. Potassium was readjusted. Regular diet. Condition stable. Prognosis guarded. MMODL / IJN: [id number] /
[2017-10-07] MEDS: SODIUM CHLORIDE 0.9% 1,000 ML IV SCH (22:39)
[2017-10-08] MEDS: LEVOTHYROXINE 25 MCG TAB PO SCH (06:28)
[2017-10-08 06:59] LABS: INR 1.8 (<1.2); Prothrombin Time 16.2 sec (9.0-12.0)
[2017-10-08] MEDS ORDERED: ERTAPENEM 0.5 GM in SODIUM CHLORIDE 0.9% 50 ML IVPB SCH (09:00)
[2017-10-08] MEDS: BUPRENORPHINE TRANSDERM SCH (09:19)
[2017-10-08] MEDS: ALLOPURINOL 100 MG TAB PO SCH (09:24)
[2017-10-08] MEDS: FAMOTIDINE 20 MG TAB PO SCH (09:24)
[2017-10-08] MEDS: FUROSEMIDE 40 MG TAB PO SCH (09:24)
[2017-10-08] MEDS: DILTIAZEM ORAL 60 MG TAB PO SCH (09:25)
[2017-10-08] MEDS: prednisoLONE ACETATE 1% OPHTH DROPS 5 ML BTL LEFT EYE SCH (09:25)
[2017-10-08] MEDS: METOPROLOL TARTRATE 50 MG TAB PO SCH (09:25)
[2017-10-08] MEDS: SENNOSIDES-DOCUSATE SODIUM 1 EACH TAB PO SCH (09:25)
[2017-10-08] MEDS: POTASSIUM CHLORIDE ER 20 MEQ TAB.ER PO SCH (09:25)
[2017-10-08 09:33] VITALS: BP 154/71; PULSE 84; RESP 16; TEMP 97.6
[2017-10-08 09:59] VITALS: BMI 32.4
[2017-10-08] MEDS ORDERED: LIDOCAINE 2% INJ 20 MG/ML (20 ML MDV) ONE (10:21)
[2017-10-08] MEDS ORDERED: LIDOCAINE 2% INJ 20 MG/ML SQ ONE (10:25)
--- NOTE | 2017-10-08 11:10 | IR ---
PICC LINE PLACEMENT: HISTORY: Infection requiring long-term antibiotic therapy PROCEDURE: Ultrasound and fluoroscopic guidance of PICC line placement. COMPLICATIONS: None ANESTHESIA: 1. 1% Lidocaine locally. FINDINGS/TECHNIQUE: The procedure was explained to the patient. The risks, complications, benefits and alternatives were discussed and any questions were answered. Informed consent was obtained. The patient was placed supine on the fluoroscopic table and prepped and draped in the usual sterile [facility] ion. Utilizing a 21 gauge needle and sonographic and fluoroscopic guidance, access in the vein was achieved and there is placement of a 0.018 guidewire. The vein is patent. A 4-F sheath was placed o anna the guidewire. The guidewire and dilator were removed and a 4-F. PICC line was placed through th e sheath with the tip at the level of the SVC. The sheath was removed, the catheter was flushed and sutured into position. The patient was stable throughout the procedure and remained stable upon disc harge from the Department of Radiology. The vein puncture was patent under ultrasound. A geronimo scale image was obtained to document patency of the vein punctured. All elements of the maximal barrier technique were utilized. FLUOROSCOPY TIME: 0.2 minute IMPRESSION: Successful PICC line placement under ultrasound and fluoroscopic guidance.
--- NOTE | 2017-10-08 16:09 | PN ---
PROGRESS NOTE DATE OF SERVICE: 10/08/2017. REASON FOR FOLLOWUP: ESBL E coli bacteremia and UTI. INTERVAL HISTORY: The patient is afebrile. The patient did get her PICC line as the IV team was unable to place midline. Denies having any chest pain, shortness of breath, cough, no abdominal pain or diarrhea. EXAMINATION: Blood pressure 154/71 with a pulse of 84, temperature 97.6. She is 94% on room air. General description is an elderly female lying in bed in no distress. Respiratory system: Unlabored breathing. Clear to auscultation anteriorly. Heart S1, S2. Regular rate and rhythm. Abdomen soft, no tenderness. LABS: White count 7.3. Blood culture repeat has been negative. DIAGNOSTIC IMPRESSION AND PLAN: Patient with a ESBL E coli infection with secondary bacteremia. Ultrasound abnormality. Plan to finish therapy with IV Invanz 500 mg daily for another 10 days. Daughter was present at bedside. All her questions were answered. MMODL / IJN: [id number] /
--- NOTE | 2017-10-08 17:33 | PN ---
PROGRESS NOTE Patient is seen for followup for chronic kidney disease. She did have a kidney injury. Renal function has been stable. Last creatinine was 2.1 on 10/06/2017. The patient's INR was subtherapeutic and that is now 1.8. She will be discharged today. PHYSICAL EXAMINATION: Blood pressure is 154/71, heart rate 84 per minute. She is afebrile. Examination of the heart S1, S2. Examination lungs bilateral breath sounds are heard. Abdomen is soft, nontender. Exam of lower extremities shows edema 2+ bilaterally. CAR TRIMMER exam is grossly intact. LAB: Labs are not available from today. ASSESSMENT: 1. Acute kidney injury secondary to sepsis. Urine tract infection. Renal function fairly stable. 2. Chronic kidney disease stage 3 secondary to nephrosclerosis and solitary functioning kidney with baseline creatinine 1.5-1.7. Patient has an atrophic right kidney. 3. Sepsis with ESBL and E. coli urinary tract infection and bacteremia, now improved. 4. Chronic obstructive pulmonary disease. 5. Atrial fibrillation with a rapid ventricular response on initial admission. Currently with controlled ventricular response, maintained on Coumadin. INR is therapeutic today. 6. Hypokalemia, status post replacement. PLAN: The patient will need follow up as outpatient with her certified health education specialist. Continue antibiotics per ID. MMODL / IJN: [id number] /
--- NOTE | 2017-10-14 15:33 | P.PN ---
Progress Note - Text Progress Note Date: 10/14/17 This is an addendum to the cardiology progress note dictated. Patient has diastolic congestive heart failure acute on chronic. DNP note has been reviewed, I agree with a documented findings and plan of care. Patient was seen and examined.
== END 2017-10-08 14:56 | DRG 871 ==
LOC: EC 16:58 → 6SEL 21:51
PROVIDERS: ADMIT Family Medicine; ATTEND Family Medicine
PROC: 02HV33Z Insertion of Infusion Device into Superior Vena Cava, Percutaneous Approach (ICD-10-PCS; principal; 2017-10-08 10:00)
DX: A41.51 Sepsis due to Escherichia coli [E. coli] (principal); J18.9 Pneumonia, unspecified organism; J96.01 Acute respiratory failure with hypoxia; I50.33 Acute on chronic diastolic (congestive) heart failure; N39.0 Urinary tract infection, site not specified; I13.0 Hypertensive heart and chronic kidney disease with heart failure and stage 1 through stage 4 chronic kidney disease, or unspecified chronic kidney disease; N18.4 Chronic kidney disease, stage 4 (severe); N17.9 Acute kidney failure, unspecified; E44.1 Mild protein-calorie malnutrition; J44.0 Chronic obstructive pulmonary disease with (acute) lower respiratory infection; I48.0 Paroxysmal atrial fibrillation; F03.90 Unspecified dementia, unspecified severity, without behavioral disturbance, psychotic disturbance, mood disturbance, and anxiety; R65.20 Severe sepsis without septic shock; Z66 Do not resuscitate; E78.5 Hyperlipidemia, unspecified; Y95 Nosocomial condition; K21.9 Gastro-esophageal reflux disease without esophagitis; H91.91 Unspecified hearing loss, right ear; H54.61 Unqualified visual loss, right eye, normal vision left eye; H40.9 Unspecified glaucoma; E03.9 Hypothyroidism, unspecified; E87.6 Hypokalemia; R79.1 Abnormal coagulation profile; T45.515A Adverse effect of anticoagulants, initial encounter; T50.2X5A Adverse effect of carbonic-anhydrase inhibitors, benzothiadiazides and other diuretics, initial encounter; R74.8 Abnormal levels of other serum enzymes; Z99.81 Dependence on supplemental oxygen; Z16.24 Resistance to multiple antibiotics; Z16.12 Extended spectrum beta lactamase (ESBL) resistance; Z79.01 Long term (current) use of anticoagulants; Z79.890 Hormone replacement therapy; Z79.51 Long term (current) use of inhaled steroids; Z79.899 Other long term (current) drug therapy; Z87.730 Personal history of (corrected) cleft lip and palate; Z96.652 Presence of left artificial knee joint; Z97.4 Presence of external hearing-aid; Z87.891 Personal history of nicotine dependence; Z80.0 Family history of malignant neoplasm of digestive organs; Z81.2 Family history of tobacco abuse and dependence; Z81.1 Family history of alcohol abuse and dependence; Z82.61 Family history of arthritis; Z84.1 Family history of disorders of kidney and ureter
CPT/HCPCS: 36415; 36569; 71045; 76770; 76937; 77001; 80048; 80053; 81001; 83605; 83880; 84443; 84484; 85025; 85610; 85730; 87040; 87077; 87086; 87186; 93005; 93306; 94760; 96365; 96366; 96367; 96376; 99285

== ENCOUNTER 2018-02-05 12:23 | Inpatient (IN) | payer MEDICARE, OTHER ==
[2018-02-05] MEDS ORDERED: IPRATROPIUM-ALBUTEROL 3 ML NEB INHALATION STA (12:28)
--- NOTE | 2018-02-05 12:32 | ED ---
Fall HPI - General Stated Complaint: fall, altered mental status Time Seen by Provider: 02/05/18 12:23 Source: patient, EMS, RN notes reviewed, old records reviewed - History of Present Illness Initial Comments: This is a 82-year-old female who is brought in by EMS [facility] a local [facility] after she was found on the floor in the bathroom. She when asked, stated she did not fall but she had evidence of some bruising above her left eye. Additionally she's started demonstrating some confusion and garbled speech which is apparently not her norm. She had a skin tear on her right lower extremity she was brought here for evaluation. She is a poor historian. Later found that she his DO NOT RESUSCITATE status. Last couple scale was 13 this does appear to be her baseline MD Complaint: fall - Related Data Home Medications Medication Instructions Recorded Confirmed Fluticasone Nasal [place] [Flonase 1 spray EA NOSTRIL Q12H 02/16/17 02/05/18 Nasal [place]] Levothyroxine Sodium [Synthroid] 25 mcg PO DAILY@0600 02/16/17 02/05/18 ALPRAZolam [Xanax] 0.25 mg PO HS 04/12/17 02/05/18 Albuterol Nebulized [Ventolin 2.5 mg INHALATION RT-Q4H PRN 04/12/17 02/05/18 Nebulized] Atorvastatin [Lipitor] 10 mg PO HS@2100 04/12/17 02/05/18 Buprenorphine [Butrans 10 MCG/HOUR] 1 patch TRANSDERM TU 04/12/17 02/05/18 Ergocalciferol (Vitamin D2) 50,000 unit PO Q30D 04/12/17 02/05/18 [Vitamin D2] Loratadine [Claritin] 10 mg PO DAILY PRN 04/12/17 02/05/18 Metolazone [Zaroxolyn] 5 mg PO MOTH 04/12/17 02/05/18 Potassium Chloride [Klor-Con 20] 20 meq PO BID@0900,1700 04/12/17 02/05/18 Ranitidine HCl [Zantac] 150 mg PO BID@0600,1700 04/12/17 02/05/18 guaiFENesin [guaiFENesin Oral 200 mg PO Q4HR PRN 04/12/17 02/05/18 Solution] prednisoLONE ACETATE [Pred Forte 2 drop BOTH EYES DAILY 04/12/17 02/05/18 1%] Ferrous Sulfate [Feosol] 325 mg PO BID@0900,1700 09/30/17 02/05/18 Latanoprost [Xalatan 0.005%] 1 drop LEFT EYE HS 09/30/17 02/05/18 Melatonin 3 mg PO HS 09/30/17 02/05/18 Triad Hydrophilic Wound Paste 1 applic TOPICAL Q12H 09/30/17 02/05/18 Vit C/E/Zn/Coppr/Lutein/Zeaxan 1 cap PO BID 09/30/17 02/05/18 [Preservision Areds 2 Softgel] acetaZOLAMIDE [Diamox] 250 mg PO TU 09/30/17 02/05/18 Clotrimazole/Betamethasone Dip 1 applic TOPICAL BID 02/05/18 02/05/18 [Lotrisone Cream] Furosemide [Lasix] 20 mg PO BID 02/05/18 02/05/18 HYDROcodone/APAP 5-325MG [[place] 1 tab PO Q8H PRN 02/05/18 02/05/18 5-325] Losartan [Cozaar] 50 mg PO DAILY 02/05/18 02/05/18 Ztubkxhc-Ofrvmwphl-Zhmnmpsy 1 applic LEFT EYE TID 02/05/18 02/05/18 [Maxitrol Ophth Oint] Warfarin [Coumadin] 2 mg PO SUSA 02/05/18 02/05/18 Previous Rx's Medication Instructions Recorded Acetaminophen Tab [Tylenol] 650 mg PO Q6HR PRN tab 02/20/17 Magnesium Hydroxide [Milk of 2,400 mg PO DAILY PRN ml 04/15/17 Magnesia Concentrate] Sennosides-Docusate Sodium 1 tab PO BID #60 tablet 04/15/17 [Senokot-S] Diltiazem Oral [Cardizem*] 60 mg PO TID tab 10/07/17 Metoprolol Tartrate [Lopressor] 50 mg PO BID tab 10/07/17 Allopurinol [Zyloprim] 200 mg PO DAILY tab 10/08/17 Allergies Allergy/AdvReac Type Severity Reaction Status Date / Time No Known Allergies Allergy Verified 02/05/18 12:36 Review of Systems ROS Statement: Those systems with pertinent positive or pertinent negative responses have been documented in the HPI. ROS Other: All systems not noted in ROS Statement are negative. Limitations: ROS unobtainable due to patients medical condition Past Medical History Past Medical History: Heart Failure, COPD, Dementia, GERD/Reflux, Hyperlipidemia , Hypertension, Renal Disease, Respiratory Disorder, Thyroid Disorder Additional Past Medical History / Comment(s): Pt was born with cleft palate and other physical problems with facial structures including nasal passages and ear canals and festus at bedside states that the ear canals are collapsing. 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 Last Myocardial Infarction Date:: unknown History of Any Multi-Drug Resistant Organisms: ESBL Date of last positivie culture/infection: 09/29/17 MDRO Source:: ESBL URINE Past Surgical History: Bladder Surgery, Joint Replacement, Orthopedic Surgery Additional Past Surgical History / Comment(s): Pt has had multiple surgeries for defects affecting mouth, nose and ears, total L knee arthroplasty, bladder sling, fistula L arm. Past Anesthesia/Blood Transfusion Reactions: No Reported Reaction Past Psychological History: No Psychological Hx Reported Additional Psychological History / Comment(s): Pt now resides at [facility] on the [place]. She was getting around in a wheelchair. She wears O2 at 3L/NC. She gets updraft treatments 4 times a day. She is on a regular thin consistency diet and ensure plus bwice a day. Smoking Status: Former smoker Past Alcohol Use History: None Reported Additional Past Alcohol Use History / Comment(s): Pt quit smoking in 1966. Past Drug Use History: None Reported - Past Family History Father Family Medical History: Cancer Additional Family Medical History / Comment(s): Father prior to age 60 yrs with esophageal cancer. He was a smoker and a drinker. Mother Family Medical History: Osteoarthritis (OA), Renal Disease, Rheumatoid Arthritis (RA) Additional Family Medical History / Comment(s): kidney problems, specific type unknown General Exam - General Exam Comments Initial Comments: This is a well-developed well-nourished awake alert but confused female Limitations: altered mental status General appearance: alert Head exam: Present: normocephalic, other (Ecchymosis seen over the right eyebrow no open wounds.) Eye exam: Present: EOMI, other (Right cornea is opacified) ENT exam: Present: mucous membranes dry Neck exam: Present: normal inspection, full ROM. Absent: tenderness, meningismus, lymphadenopathy Respiratory exam: Present: wheezes, decreased breath sounds Cardiovascular Exam: Present: regular rate, normal rhythm, normal heart sounds. Absent: systolic murmur, diastolic murmur, rubs, gallop, clicks GI/Abdominal exam: Present: soft, normal bowel sounds. Absent: distended, tenderness, guarding, rebound, rigid Rectal exam: Present: deferred Extremities exam: Present: full ROM, normal capillary refill, other (Anterior to the right anterior priest). Absent: tenderness Back exam: Present: normal inspection Neurological exam: Present: altered, motor sensory deficit (Right cornea is opacified there is evidence of some garbled speech). Absent: oriented X3, CN II -XII intact Skin exam: Present: warm, normal color. Absent: intact Course Vital Signs 02/05/18 02/05/18 02/05/18 12:26 12:51 13:26 Temperature 97.2 F L Pulse Rate 96 97 96 Respiratory 20 20 Rate Blood Pressure 186/86 175/72 O2 Sat by Pulse 97 Oximetry 02/05/18 02/05/18 02/05/18 13:35 14:35 15:30 Temperature 99.1 F Pulse Rate 98 96 99 Respiratory 18 20 Rate Blood Pressure 131/95 143/64 O2 Sat by Pulse 96 97 Oximetry 02/05/18 17:46 Temperature Pulse Rate 110 H Respiratory 18 Rate Blood Pressure 177/80 O2 Sat by Pulse 98 Oximetry Medical Decision Making - Medical Decision Making I did discuss the findings with the patient and family members patient will be admitted urinary tract infection and COPD exacerbation dehydration renal failure syndrome and fall - Lab Data Result diagrams: 02/05/18 12:34 02/05/18 12:34 Lab Results 02/05/18 02/05/18 02/05/18 Range/Units 12:33 12:34 12:34 WBC (3.8-10.6) k/uL RBC (3.80-5.40) m/uL Hgb (11.4-16.0) gm/dL Hct (34.0-46.0) % MCV (80.0-100.0) fL MCH (25.0-35.0) pg MCHC (31.0-37.0) g/dL RDW (11.5-15.5) % Plt Count (150-450) k/uL Neutrophils % % Lymphocytes % % Monocytes % % Eosinophils % % Basophils % % Neutrophils # (1.3-7.7) k/uL Lymphocytes # (1.0-4.8) k/uL Monocytes # (0-1.0) k/uL Eosinophils # (0-0.7) k/uL Basophils # (0-0.2) k/uL Hypochromasia Anisocytosis PT 11.1 (9.0-12.0) sec INR 1.2 H (<1.2) APTT 23.3 (22.0-30.0) sec Sodium (137-145) mmol/L Potassium (3.5-5.1) mmol/L Chloride (98-107) mmol/L Carbon Dioxide (22-30) mmol/L Anion Gap mmol/L BUN (7-17) mg/dL Creatinine (0.52-1.04) mg/dL Est GFR (CKD-EPI)AfAm (>60 ml/min/1.73 sqM) Est GFR (CKD-EPI)NonAf (>60 ml/min/1.73 sqM) Glucose (74-99) mg/dL POC Glucose (mg/dL) 129 H (75-99) mg/dL POC Glu Club Director Navi Fine Plasma Lactic Acid Kuldip (0.7-2.0) mmol/L Calcium (8.4-10.2) mg/dL Magnesium (1.6-2.3) mg/dL Total Bilirubin (0.2-1.3) mg/dL AST (14-36) U/L ALT (9-52) U/L Alkaline Phosphatase (38-126) U/L Ammonia (<30) umol/L Total Creatine Kinase (30-135) U/L CK-MB (CK-2) (0.0-2.4) ng/mL CK-MB (CK-2) Rel Index Troponin I (0.000-0.034) ng/mL NT-Pro-B Natriuret Pep 6590 pg/mL Total Protein (6.3-8.2) g/dL Albumin (3.5-5.0) g/dL Urine Color Urine Appearance (Clear) Urine pH (5.0-8.0) Ur Specific [place] (1.001-1.035) Urine Protein (Negative) Urine Glucose (UA) (Negative) Urine Ketones (Negative) Urine Blood (Negative) Urine Nitrite (Negative) Urine Bilirubin (Negative) Urine Urobilinogen (<2.0) mg/dL Ur Leukocyte Esterase (Negative) Urine RBC (0-5) /hpf Urine WBC (0-5) /hpf Ur Squamous Epith Cells (0-4) /hpf Urine Bacteria (None) /hpf 02/05/18 02/05/18 02/05/18 Range/Units 12:34 12:34 12:34 WBC 5.7 (3.8-10.6) k/uL RBC 4.23 (3.80-5.40) m/uL Hgb 11.3 L (11.4-16.0) gm/dL Hct 36.8 (34.0-46.0) % MCV 87.0 (80.0-100.0) fL MCH 26.8 (25.0-35.0) pg MCHC 30.8 L (31.0-37.0) g/dL RDW 16.3 H (11.5-15.5) % Plt Count 201 (150-450) k/uL Neutrophils % 69 % Lymphocytes % 12 % Monocytes % 9 % Eosinophils % 6 % Basophils % 0 % Neutrophils # 4.0 (1.3-7.7) k/uL Lymphocytes # 0.7 L (1.0-4.8) k/uL Monocytes # 0.5 (0-1.0) k/uL Eosinophils # 0.4 (0-0.7) k/uL Basophils # 0.0 (0-0.2) k/uL Hypochromasia Moderate Anisocytosis Slight PT (9.0-12.0) sec INR (<1.2) APTT (22.0-30.0) sec Sodium (137-145) mmol/L Potassium (3.5-5.1) mmol/L Chloride (98-107) mmol/L Carbon Dioxide (22-30) mmol/L Anion Gap mmol/L BUN (7-17) mg/dL Creatinine (0.52-1.04) mg/dL Est GFR (CKD-EPI)AfAm (>60 ml/min/1.73 sqM) Est GFR (CKD-EPI)NonAf (>60 ml/min/1.73 sqM) Glucose (74-99) mg/dL POC Glucose (mg/dL) (75-99) mg/dL POC Glu Club Director ID Plasma Lactic Acid Kuldip 1.1 (0.7-2.0) mmol/L Calcium (8.4-10.2) mg/dL Magnesium (1.6-2.3) mg/dL Total Bilirubin (0.2-1.3) mg/dL AST (14-36) U/L ALT (9-52) U/L Alkaline Phosphatase (38-126) U/L Ammonia 24 (<30) umol/L Total Creatine Kinase 43 (30-135) U/L CK-MB (CK-2) 1.0 (0.0-2.4) ng/mL CK-MB (CK-2) Rel Index 2.3 Troponin I <0.012 (0.000-0.034) ng/mL NT-Pro-B Natriuret Pep pg/mL Total Protein (6.3-8.2) g/dL Albumin (3.5-5.0) g/dL Urine Color Urine Appearance (Clear) Urine pH (5.0-8.0) Ur Specific [place] (1.001-1.035) Urine Protein (Negative) Urine Glucose (UA) (Negative) Urine Ketones (Negative) Urine Blood (Negative) Urine Nitrite (Negative) Urine Bilirubin (Negative) Urine Urobilinogen (<2.0) mg/dL Ur Leukocyte Esterase (Negative) Urine RBC (0-5) /hpf Urine WBC (0-5) /hpf Ur Squamous Epith Cells (0-4) /hpf Urine Bacteria (None) /hpf 02/05/18 02/05/18 Range/Units 12:34 12:51 WBC (3.8-10.6) k/uL RBC (3.80-5.40) m/uL Hgb (11.4-16.0) gm/dL Hct (34.0-46.0) % MCV (80.0-100.0) fL MCH (25.0-35.0) pg MCHC (31.0-37.0) g/dL RDW (11.5-15.5) % Plt Count (150-450) k/uL Neutrophils % % Lymphocytes % % Monocytes % % Eosinophils % % Basophils % % Neutrophils # (1.3-7.7) k/uL Lymphocytes # (1.0-4.8) k/uL Monocytes # (0-1.0) k/uL Eosinophils # (0-0.7) k/uL Basophils # (0-0.2) k/uL Hypochromasia Anisocytosis PT (9.0-12.0) sec INR (<1.2) APTT (22.0-30.0) sec Sodium 139 (137-145) mmol/L Potassium 3.9 (3.5-5.1) mmol/L Chloride 99 (98-107) mmol/L Carbon Dioxide 28 (22-30) mmol/L Anion Gap 12 mmol/L BUN 76 H (7-17) mg/dL Creatinine 2.99 H (0.52-1.04) mg/dL Est GFR (CKD-EPI)AfAm 16 (>60 ml/min/1.73 sqM) Est GFR (CKD-EPI)NonAf 14 (>60 ml/min/1.73 sqM) Glucose 113 H (74-99) mg/dL POC Glucose (mg/dL) (75-99) mg/dL POC Glu Club Director ID Plasma Lactic Acid Kuldip (0.7-2.0) mmol/L Calcium 10.1 (8.4-10.2) mg/dL Magnesium 1.9 (1.6-2.3) mg/dL Total Bilirubin 0.5 (0.2-1.3) mg/dL AST 19 (14-36) U/L ALT 22 (9-52) U/L Alkaline Phosphatase 110 (38-126) U/L Ammonia (<30) umol/L Total Creatine Kinase (30-135) U/L CK-MB (CK-2) (0.0-2.4) ng/mL CK-MB (CK-2) Rel Index Troponin I (0.000-0.034) ng/mL NT-Pro-B Natriuret Pep pg/mL Total Protein 6.5 (6.3-8.2) g/dL Albumin 3.5 (3.5-5.0) g/dL Urine Color Light Yellow Urine Appearance Clear (Clear) Urine pH 7.0 (5.0-8.0) Ur Specific [place] 1.009 (1.001-1.035) Urine Protein Trace H (Negative) Urine Glucose (UA) Negative (Negative) Urine Ketones Negative (Negative) Urine Blood Negative (Negative) Urine Nitrite Positive H (Negative) Urine Bilirubin Negative (Negative) Urine Urobilinogen <2.0 (<2.0) mg/dL Ur Leukocyte Esterase Large H (Negative) Urine RBC 1 (0-5) /hpf Urine WBC 46 H (0-5) /hpf Ur Squamous Epith Cells 2 (0-4) /hpf Urine Bacteria Moderate H (None) /hpf - EKG Data -: EKG Interpreted by Me (Atrial fibrillation rate was 92 QRS 100 QT since QTC 352/[address]-T ) - Radiology Data Radiology results: report reviewed (Review the imaging shows no definite acute findings.), image reviewed Critical Care Time Critical Care Time: Yes Critical Care Time: 33 minutes of critical care time which includes monitoring the EMS discussed with paramedics history physical labs x-rays several reevaluation the patient discussed with the patient family regarding findings discussion with the admitting physician admission orders and documentation of the above Disposition Clinical Impression: COPD exacerbation, Urinary tract infection, Renal failure syndrome, Dehydration , Fall, Facial contusion Disposition: ADMITTED IP TO THIS [facility] Condition: Stable Referrals: Pablo Dooley MD [Primary Care Provider] - 1-2 days
--- NOTE | 2018-02-05 12:50 | XR ---
EXAMINATION TYPE: XR chest 1V portable DATE OF EXAM: 02/05/2018 COMPARISON: 09/29/2017 HISTORY: Pain TECHNIQUE: Single frontal view of the chest is obtained. FINDINGS: Subsegmental consolidation at the right lung base. There is also mild cephalization of the pulmonary vessels. No definite pneumothorax or sizable pleural effusion is identified. Mild cardiome rudy. Subsegmental changes at the left lung base. Diffuse osteopenia and arthropathy of the shoulders . Atherosclerotic change aorta. IMPRESSION: 1. Bilateral subsegmental atelectasis or infiltrate. 2. Interstitium remains prominent likely the basis of pulmonary fibrosis. Superimposed pneumonitis or venous congestion not excluded.
[2018-02-05 12:52] LABS: Anisocytosis Slight; Basophils % (A) 0 %; Eosinophils # (A) 0.4 k/uL (0-0.7); Eosinophils % (A) 6 %; HCT 36.8 % (34.0-46.0); HGB 11.3 gm/dL (11.4-16.0); Hypochromasia Moderate; Lymphocytes # (A) 0.7 k/uL (1.0-4.8); Lymphocytes % (A) 12 %; MCH 26.8 pg (25.0-35.0); MCHC 30.8 g/dL (31.0-37.0); Mean Platelet Volume 7.4; Monocytes # (A) 0.5 k/uL (0-1.0); Monocytes % (A) 9 %; Neutrophils % (A) 69 %; Platelet Count 201 k/uL (150-450); RBC 4.23 m/uL (3.80-5.40); RDW 16.3 % (11.5-15.5); WBC 5.7 k/uL (3.8-10.6)
[2018-02-05 12:59] LABS: INR 1.2 (<1.2); Partial Thromboplastin Time 23.3 sec (22.0-30.0); Prothrombin Time 11.1 sec (9.0-12.0)
[2018-02-05 13:00] LABS: Albumin 3.5 g/dL (3.5-5.0); Calcium 10.1 mg/dL (8.4-10.2); Magnesium 1.9 mg/dL (1.6-2.3); Potassium 3.9 mmol/L (3.5-5.1); Total Bilirubin 0.5 mg/dL (0.2-1.3); Total Protein 6.5 g/dL (6.3-8.2)
[2018-02-05 13:12] LABS: Creatine Kinase 43 U/L (30-135)
[2018-02-05 13:23] LABS: Appearance,Urine Clear (Clear); Bacteria,Urine Moderate /hpf; Bilirubin,Urine Negative (Negative); Blood,Urine Negative (Negative); Color,Urine Light Yellow; Glucose,Urine (UA) Negative (Negative); Ketones,Urine Negative (Negative); Leukocyte Esterase,Urine Large (Negative); Nitrite,Urine Positive (Negative); Protein,Urine Trace (Negative); RBC,Urine 1 /hpf (0-5); Specific Gravity,Urine 1.009 (1.001-1.035); Squamous Epithelial Cell,Urine 2 /hpf (0-4); Urobilinogen,Urine <2.0 mg/dL (<2.0); WBC,Urine 46 /hpf (0-5)
[2018-02-05 13:25] LABS: Troponin I <0.012 ng/mL (0.000-0.034)
[2018-02-05 13:29] LABS: Lactic Acid, Venous 1.1 mmol/L (0.7-2.0)
--- NOTE | 2018-02-05 13:34 | CT ---
EXAMINATION TYPE: CT brain danieline wo con DATE OF EXAM: 02/05/2018 COMPARISON: 03/28/2017 HISTORY: Fall, AMS CT DLP: 1502 mGycm, Automated exposure control for dose reduction was used. CONTRAST: Patient injected with 0 mL of Isovue 300. CT of the brain is performed utilizing 3 mm thick sections through the posterior fossa and 3 mm thick sections through the remaining calvarium. Study is performed within 24 hours of arrival to the hospital. No abnormal hyperdensity is present to suggest an acute intracranial hemorrhage. No mass lesion is evident. No acute infarcts are evident. There is mild periventricular white matter hypodensity, likely on the basis of chronic white matter ischemic changes. Ventricles and sulci are appropriate for the patient age. No acute fractures are evident. Mild soft tissue swelling is over the left orbit. There is motion art ifact present and nasal bone evaluation is somewhat limited. There are air-fluid levels or retention cysts within the maxillary sinuses. Air-fluid levels within the sphenoid sinus. IMPRESSIONS: 1. Age-related atrophy with periventricular white matter ischemic type changes CT cervical spine. COMPARISON: 03/28/2017 CT of the cervical spine is performed in the axial plane at 2 mm thick sections. Reconstructed image s in the coronal, and sagittal plane are reviewed on the computer. No acute fractures are evident. Straightened There is loss of disc height C3-4 C4-5. Posterior endplate spurring is present from C4 with proximall y 4 mm posterior impression on the thecal sac. Disc space narrowing is also present C6-6-7 posterior spinal lamellar line appears intact. Vertebral body heights are preserved. No spinal canal stenosis is evident. No significant foraminal narrowing is present. Exam appears stable from comparison IMPRESSIONS: 1. Degenerative disc changes with some endplate spurring. 2. No acute osseous abnormality
[2018-02-05 13:38] LABS: Glucose,Whole Blood 129 mg/dL (75-99)
[2018-02-05] MEDS ORDERED: cefTRIAXone IN SWFI 1,000 MG/10 ML SYRINGE IVP STA (17:48)
[2018-02-05] MEDS ORDERED: MAGNESIUM HYDROXIDE 2,400 MG/10 ML CUP PO PRN (17:59)
[2018-02-05] MEDS ORDERED: LORATADINE 10 MG TAB PO PRN (17:59)
[2018-02-05] MEDS ORDERED: HYDROcodone/APAP 5-325MG 1 EACH TAB PO PRN (17:59)
[2018-02-05] MEDS ORDERED: ACETAMINOPHEN TAB 325 MG TAB PO PRN (17:59)
[2018-02-05] MEDS ORDERED: guaiFENesin SYRUP 100MG/5ML 200 MG/10 ML CUP PO PRN (17:59)
[2018-02-05] MEDS: IPRATROPIUM-ALBUTEROL 3 ML NEB INHALATION SCH ×2 (19:50→23:33)
[2018-02-05] MEDS: NEOMYCIN-POLYMYXIN-DEXAMETH OINT 3.5 GM TUBE LEFT EYE SCH (21:47)
[2018-02-05] MEDS: MINERAL OIL-WHITE PETROLATUM 120 GM JAR TOPICAL SCH (21:47)
[2018-02-05] MEDS: SENNOSIDES-DOCUSATE SODIUM 1 EACH TAB PO SCH (21:47)
[2018-02-05] MEDS: MELATONIN 3 MG TABLET PO SCH (21:47)
[2018-02-05] MEDS: FLUTICASONE 50MCG/SPRAY NASAL 16GM EA NOSTRIL SCH (21:47)
[2018-02-05] MEDS: CLOTRIMAZOLE/BETAMETH 1-0.05% CREAM 45 GM TUBE TOPICAL SCH (21:47)
[2018-02-05] MEDS: VIT A,C & E-LUTEIN-MINERALS 1 EACH TAB PO SCH (21:47)
[2018-02-05] MEDS: FUROSEMIDE 20 MG TAB PO SCH (21:47)
[2018-02-05] MEDS: methylPREDNISolone SOD SUCCI 125 MG/2 ML VIAL IV SCH (21:48)
[2018-02-05] MEDS: DILTIAZEM ORAL 60 MG TAB PO SCH (21:48)
[2018-02-05] MEDS: ATORVASTATIN 10 MG TAB PO SCH (21:49)
[2018-02-05] MEDS: METOPROLOL TARTRATE 50 MG TAB PO SCH (21:49)
[2018-02-05] MEDS: LATANOPROST 0.005% OPHTH DROPS 2.5 ML BTL LEFT EYE SCH (21:49)
[2018-02-05] MEDS: ALPRAZolam 0.25 MG TAB PO SCH (21:52)
[2018-02-06] MEDS: methylPREDNISolone SOD SUCCI 125 MG/2 ML VIAL IV SCH ×4 (00:44→18:46)
[2018-02-06] MEDS: SODIUM CHLORIDE 0.9% 1,000 ML IV SCH ×3 (00:49→12:14)
[2018-02-06] MEDS: IPRATROPIUM-ALBUTEROL 3 ML NEB INHALATION SCH ×5 (03:35→19:45)
[2018-02-06] MEDS ORDERED: FAMOTIDINE 20 MG TAB PO SCH (06:00)
[2018-02-06] MEDS: FUROSEMIDE 20 MG TAB PO SCH (06:12)
[2018-02-06] MEDS: LEVOTHYROXINE 25 MCG TAB PO SCH (06:12)
[2018-02-06] MEDS: FLUTICASONE 50MCG/SPRAY NASAL 16GM EA NOSTRIL SCH ×2 (06:15→17:36)
[2018-02-06] MEDS: MINERAL OIL-WHITE PETROLATUM 120 GM JAR TOPICAL SCH ×2 (06:17→17:36)
--- NOTE | 2018-02-06 07:39 | HP ---
HISTORY AND PHYSICAL CHIEF COMPLAINT: An 82-year-old white female brought from a longterm, was found on the floor. She has some bruising over her left eye. She has some confusion, garbled speech. She was found to be a poor historian. Do not resuscitate. She is admitted due to fall and contusion and possible urosepsis. MEDICATIONS: Fluticasone, Synthroid, Xanax, Ventolin, Lipitor, Butrans patch, Zaroxolyn, Claritin, Zantac, Pred Forte, Feosol, Xalatan, Diamox, Lotrisone cream, Clover, Cozaar, Maxitrol, Coumadin. ALLERGIES: Negative. REVIEW OF SYSTEMS: Fourteen-point review of systems negative except for as mentioned in HPI. PAST MEDICAL HISTORY: Heart failure, COPD, dementia, GERD, dyslipidemia, hypertension, renal disease, chronic respiratory disorder, hypothyroidism. She was born with a cleft palate and had facial fractures, nasal passages, ear canals. Hears some with her left ear, deaf in her right ear. 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 She has glaucoma, chronic renal disease stage IV. She had an appointment with a renal physician, but has not seen her yet. She has a left arm fistula with no hemodialysis. Frequent UTI. She wears oxygen at 3 L. She has frequent falls. Hypothyroidism. Has ESBL in the urine. PAST SURGICAL HISTORY: Bladder surgery, joint replacement, orthopedic surgery, multiple surgery with defects affecting mouth, nose and ears. Left knee arthroplasty, bladder sling, fistula left arm. She lives at [facility] on the [place]. She wears 3 L of oxygen at this time. SOCIAL HISTORY: She is a former smoker. No alcohol. No illicit drugs. FAMILY HISTORY: Father with esophageal cancer. Mother with osteoarthritis, renal disease and rheumatoid arthritis. PHYSICAL EXAM: A well-developed, well-nourished white female in no acute distress. HEENT: Normocephalic, atraumatic. OPHTHALMOLOGIC: Pupils equal, round, and reactive on the left. RESPIRATORY: Some wheezes, decreased breath sounds. NECK: Supple. No lymphadenopathy. CARDIOVASCULAR: S1, S2 without any murmurs, rubs or gallops. ABDOMEN: Soft, nontender. Normal bowel sounds. EXTREMITIES: Full range of motion. Normal capillary refill. BACK: Normal inspection. NEUROLOGIC: Cranial nerves are intact. SKIN: Warm, dry. Temp 97.2, pulse is 95 to 97, respiratory rate 20 to 22, blood pressure is 170s to 180s over 70s to 80s, O2 of 97% on room air. Hemoglobin is 11.2, white count 5.7. BUN 76, creatinine 2.99. UA shows positive nitrates. EKG sinus rhythm, atrial fibrillation. ASSESSMENT: 1. Chronic obstructive pulmonary disease exacerbation. 2. Urinary tract infection. 3. Renal failure syndrome. 4. Dehydration. 5. Frequent falls. 6. Facial contusion. PLAN: Urology consult. Hematology and Infectious Disease consult. Please see further orders. Continue with broad-spectrum antibiotics. Rocephin will be given until urine culture is back. Please see further orders. MMODL / IJN: [id number] /
[2018-02-06] MEDS ORDERED: METOLAZONE 5 MG TAB PO SCH (09:00)
[2018-02-06] MEDS: VIT A,C & E-LUTEIN-MINERALS 1 EACH TAB PO SCH ×2 (09:46→17:36)
[2018-02-06] MEDS: METOPROLOL TARTRATE 50 MG TAB PO SCH ×2 (09:46→21:49)
[2018-02-06] MEDS: SENNOSIDES-DOCUSATE SODIUM 1 EACH TAB PO SCH ×2 (09:47→21:49)
[2018-02-06] MEDS: DILTIAZEM ORAL 60 MG TAB PO SCH ×3 (09:47→21:49)
[2018-02-06] MEDS: POTASSIUM CHLORIDE ER 20 MEQ TAB.ER PO SCH ×2 (09:47→18:51)
[2018-02-06] MEDS: FERROUS SULFATE 325 MG TAB PO SCH ×2 (09:47→18:06)
[2018-02-06] MEDS: NEOMYCIN-POLYMYXIN-DEXAMETH OINT 3.5 GM TUBE LEFT EYE SCH ×3 (09:48→21:51)
[2018-02-06] MEDS: prednisoLONE ACETATE 1% OPHTH DROPS 5 ML BTL BOTH EYES SCH (09:49)
[2018-02-06] MEDS: CLOTRIMAZOLE/BETAMETH 1-0.05% CREAM 45 GM TUBE TOPICAL SCH ×2 (09:50→21:51)
[2018-02-06] MEDS: LOSARTAN 50 MG TAB PO SCH (10:43)
[2018-02-06] MEDS: ALLOPURINOL 100 MG TAB PO SCH (10:43)
[2018-02-06] MEDS: DEXTROSE 5%-0.9% NACL 1,000 ML IV SCH (12:14)
--- NOTE | 2018-02-06 13:06 | ECHOF ---
Referral Reason:chf MEASUREMENTS -------- HEIGHT: 160.0 cm WEIGHT: 73.9 kg BP: 159/81 RVIDd: 2.8 cm (< 3.3) IVSd: 1.2 cm (0.6 - 1.1) LVIDd: 3.2 cm (3.9 - 5.3) LVPWd: 1.2 cm (0.6 - 1.1) IVSs: 1.6 cm LVIDs: 2.3 cm LVPWs: 1.5 cm LA Diam: 3.8 cm (2.7 - 3.8) LAESV Index (A-L): 37.03 ml/m Ao Diam: 2.6 cm (2.0 - 3.7) AV Cusp: 1.6 cm (1.5 - 2.6) MV EXCURSION: 22.213 mm (> 18.000) MV EF SLOPE: 148 mm/s (70 - 150) EPSS: 0.8 cm RAP: 5.00 mmHg RVSP: 45.94 mmHg FINDINGS -------- Atrial fibrillation. This was a technically adequate study. The left ventricular size is normal. There is borderline concentric left ventricular hypertrophy. Overall left ventricular systolic function is low-normal with, an EF between 50 - 55 %. The right ventricle is normal in size. LA is moderately dilated 34-39 ml/m2 The right atrium is normal in size. There is mild aortic valve sclerosis. Trace to mild aortic regurgitation. Mild mitral annular calcification present. There is trace to mild mitral regurgitation. Jrug-uv-eoqjjbsi tricuspid regurgitation present. There is mild to moderate pulmonary hypertension. The right ventricular systolic pressure, as measured by Doppler, is 45.94mmHg. Trace/mild (physiologic) pulmonic regurgitation. The aortic root size is normal. There is no pericardial effusion. CONCLUSIONS -------- 1. Atrial fibrillation. 2. This was a technically adequate study. 3. The left ventricular size is normal. 4. There is borderline concentric left ventricular hypertrophy. 5. Overall left ventricular systolic function is low-normal with, an EF between 50 - 55 %. 6. The right ventricle is normal in size. 7. LA is moderately dilated 34-39 ml/m2 8. The right atrium is normal in size. 9. There is mild aortic valve sclerosis. 10. Trace to mild aortic regurgitation. 11. Mild mitral annular calcification present. 12. There is trace to mild mitral regurgitation. 13. Ushc-nh-bjvlpozk tricuspid regurgitation present. 14. There is mild to moderate pulmonary hypertension. 15. The right ventricular systolic pressure, as measured by Doppler, is 45.94mmHg. 16. Trace/mild (physiologic) pulmonic regurgitation. 17. The aortic root size is normal. 18. There is no pericardial effusion. DEATH CLAIM EXAMINER: Shasha Kuhn RDCS
--- NOTE | 2018-02-06 13:36 | P.NPCON ---
History of Present Illness - Reason for Consult acute renal failure - History of Present Illness Reason for consultation: Acute kidney injury on chronic kidney disease History of present illness: Patient is a 82-year-old female seen in renal consultation for acute kidney injury on chronic kidney disease. Patient has chronic kidney disease stage IIIB with baseline creatinine in the range of 1.62 secondary to nephrosclerosis and right renal atrophy. Patient presented to the hospital after sustaining a fall. She was also noted to be more confused and subsequently sent to the hospital for further care. Patient is very hard of hearing. She is currently awake and alert. Denies chest pain or shortness of breath. Oral intake is poor. Diuretics are held and she is maintained on normal saline at 75 mL an hour. She has history of diastolic CHF with moderate to severe tricuspid regurgitation and mild to moderate pulmonary hypertension. No edema at this time. Creatinine was 2.19 on admission. Labs from today are pending at this time. Hemodynamically she stable. Vital signs are stable. General: The patient appeared well nourished and normally developed. HEENT: Head exam is unremarkable. Neck is without jugular venous distension. LUNGS: Lungs are clear to auscultation and percussion. Breath sounds decreased. HEART: Rate and Rhythm are regular. First and second heart sounds normal. No murmurs, rubs or gallops. ABDOMEN: Abdominal exam reveals normal bowel sounds. Non-tender and non- distended. No evidence of peritonitis. EXTREMITITES: No clubbing, cyanosis, or edema. Past Medical History Past Medical History: Heart Failure, COPD, Dementia, GERD/Reflux, Hyperlipidemia , Hypertension, Pneumonia, Renal Disease, Respiratory Disorder, Thyroid Disorder Additional Past Medical History / Comment(s): Pt was born with cleft palate and other physical problems with facial structures including nasal passages and ear canals and festus at bedside states that the ear canals are collapsing. 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 Last Myocardial Infarction Date:: unknown History of Any Multi-Drug Resistant Organisms: ESBL Date of last positivie culture/infection: 09/29/17 MDRO Source:: ESBL URINE Past Surgical History: Bladder Surgery, Hysterectomy, Joint Replacement, Orthopedic Surgery Additional Past Surgical History / Comment(s): Pt has had multiple surgeries for defects affecting mouth, nose and ears, total L knee arthroplasty, bladder sling, fistula L arm.PARTIAL HYSTERECTOMY, PICC LINE-SINCE REMOVED Past Anesthesia/Blood Transfusion Reactions: No Reported Reaction Smoking Status: Former smoker - Past Family History Father Family Medical History: Cancer Additional Family Medical History / Comment(s): Father prior to age 60 yrs with esophageal cancer. He was a smoker and a drinker. Mother Family Medical History: Osteoarthritis (OA), Renal Disease, Rheumatoid Arthritis (RA) Additional Family Medical History / Comment(s): kidney problems, specific type unknown Medications and Allergies Home Medications Medication Instructions Recorded Confirmed Type Fluticasone Nasal [place] [Flonase 1 spray EA NOSTRIL Q12H 02/16/17 02/05/18 History Nasal [place]] Levothyroxine Sodium [Synthroid] 25 mcg PO DAILY@0600 02/16/17 02/05/18 History Acetaminophen Tab [Tylenol] 650 mg PO Q6HR PRN tab 02/20/17 02/05/18 Rx ALPRAZolam [Xanax] 0.25 mg PO HS 04/12/17 02/05/18 History Albuterol Nebulized [Ventolin 2.5 mg INHALATION RT-Q4H PRN 04/12/17 02/05/18 History Nebulized] Atorvastatin [Lipitor] 10 mg PO HS@2100 04/12/17 02/05/18 History Buprenorphine [Butrans 10 MCG/HOUR] 1 patch TRANSDERM TU 04/12/17 02/05/18 History Ergocalciferol (Vitamin D2) 50,000 unit PO Q30D 04/12/17 02/05/18 History [Vitamin D2] Loratadine [Claritin] 10 mg PO DAILY PRN 04/12/17 02/05/18 History Metolazone [Zaroxolyn] 5 mg PO MOTH 04/12/17 02/05/18 History Potassium Chloride [Klor-Con 20] 20 meq PO BID@0900,1700 04/12/17 02/05/18 History Ranitidine HCl [Zantac] 150 mg PO BID@0600,1700 04/12/17 02/05/18 History guaiFENesin [guaiFENesin Oral 200 mg PO Q4HR PRN 04/12/17 02/05/18 History Solution] prednisoLONE ACETATE [Pred Forte 2 drop BOTH EYES DAILY 04/12/17 02/05/18 History 1%] Magnesium Hydroxide [Milk of 2,400 mg PO DAILY PRN ml 04/15/17 02/05/18 Rx Magnesia Concentrate] Sennosides-Docusate Sodium 1 tab PO BID #60 tablet 04/15/17 02/05/18 Rx [Senokot-S] Ferrous Sulfate [Feosol] 325 mg PO BID@0900,1700 09/30/17 02/05/18 History Latanoprost [Xalatan 0.005%] 1 drop LEFT EYE HS 09/30/17 02/05/18 History Melatonin 3 mg PO HS 09/30/17 02/05/18 History Triad Hydrophilic Wound Paste 1 applic TOPICAL Q12H 09/30/17 02/05/18 History Vit C/E/Zn/Coppr/Lutein/Zeaxan 1 cap PO BID 09/30/17 02/05/18 History [Preservision Areds 2 Softgel] acetaZOLAMIDE [Diamox] 250 mg PO TU 09/30/17 02/05/18 History Diltiazem Oral [Cardizem*] 60 mg PO TID tab 10/07/17 02/05/18 Rx Metoprolol Tartrate [Lopressor] 50 mg PO BID tab 10/07/17 02/05/18 Rx Allopurinol [Zyloprim] 200 mg PO DAILY tab 10/08/17 02/05/18 Rx Clotrimazole/Betamethasone Dip 1 applic TOPICAL BID 02/05/18 02/05/18 History [Lotrisone Cream] Furosemide [Lasix] 20 mg PO BID 02/05/18 02/05/18 History HYDROcodone/APAP 5-325MG [Zaleski 1 tab PO Q8H PRN 02/05/18 02/05/18 History 5-325] Losartan [Cozaar] 50 mg PO DAILY 02/05/18 02/05/18 History Xxcubygp-Upjnqjpkw-Uxcravsp 1 applic LEFT EYE TID 02/05/18 02/05/18 History [Maxitrol Ophth Oint] Warfarin [Coumadin] 2 mg PO SUSA 02/05/18 02/05/18 History Allergies Allergy/AdvReac Type Severity Reaction Status Date / Time No Known Allergies Allergy Verified 02/05/18 12:36 Physical Exam Vitals: Vital Signs Temp Pulse Pulse Resp BP BP Pulse Ox 02/06/18 11:19 88 02/06/18 11:10 88 02/06/18 11:06 88 02/06/18 07:15 84 02/06/18 07:05 82 98 02/06/18 06:56 96.9 F L 83 20 159/81 96 02/06/18 03:04 20 02/05/18 23:44 94 02/05/18 23:36 93 02/05/18 23:00 97.1 F L 98 20 169/73 92 L 02/05/18 20:09 92 02/05/18 19:50 94 97 02/05/18 18:35 98.5 F 101 H 20 182/89 96 02/05/18 17:46 110 H 18 177/80 98 02/05/18 15:30 99.1 F 99 20 143/64 97 02/05/18 14:35 96 18 131/95 96 02/05/18 13:35 98 Intake and Output 02/05/18 02/06/18 02/06/18 22:59 06:59 14:59 Other: Voiding Method Diaper Incontinent # Voids 4 # Bowel Movements 0 Results - Lab Results Most recent lab results Calcium 10.1 mg/dL (8.4-10.2) 02/05/18 12:34 Magnesium 1.9 mg/dL (1.6-2.3) 02/05/18 12:34 02/05/18 12:34 02/05/18 12:34 Assessment and Plan Plan: Assessment: 1. Nonoliguric acute kidney injury mostly prerenal from diuretics and poor oral intake. Creatinine 2.99 on admission. Labs from today are pending at this time. 2. Status post fall. 3. Chronic kidney disease stage IIIB secondary to nephrosclerosis and right renal atrophy with baseline creatinine in the range of 1.6-2. 4. UTI maintained on antibiotics. Urine culture pending. 5. Hypertension with chronic kidney disease. Controlled. Plan: Continue normal saline at 75 mL an hour for now - can likely Hep-Lock tomorrow. Follow-up cultures. Follow-up echocardiogram and chest x-ray. Encourage oral intake. Avoid nephrotoxic agents and hypotensive episodes. Diuretics currently held. Thank you for the consultation. I will continue to follow the patient with you during her hospital stay.
--- NOTE | 2018-02-06 13:36 | XR ---
EXAMINATION TYPE: XR chest 1V portable DATE OF EXAM: 02/06/2018 COMPARISON: Prior chest 02/05/2018 HISTORY: Pneumonia, cough TECHNIQUE: Single frontal view of the chest is obtained. FINDINGS: Patient is rotated. Heart is stable and enlarged. Interstitium is increased. No evident pn eumothorax or sizable effusion. Retrocardiac hiatal hernia suspected. High riding right shoulder comp atible with chronic rotator cuff tear. IMPRESSION: Correlate for possible pulmonary venous hypertension and interstitial edema. Rotated exa m. Follow-up PA and lateral chest x-ray recommended.
[2018-02-06 13:39] LABS: Calcium 10.4 mg/dL (8.4-10.2); Potassium 3.3 mmol/L (3.5-5.1)
--- NOTE | 2018-02-06 14:27 | P.CRDCN ---
History of Present Illness History of present illness: Mrs. Sawyer is a pleasant 82-year-old female past medical history significant for paroxysmal atrial fibrillation on terminal operator anticoagulation with coumadin, diastolic congestive heart failure, hypertension, dyslipidemia, dementia, COPD and chronic kidney disease. We have been asked to see her in consultation for heart failure. She presented to the hospital yesterday after being found on the bathroom floor with increased confusion and garbled speech. She was found to have a UTI on admission. She is seen and examined laying comfortably in bed in no acute distress and is rather sleepy. She will not wake up to answer questions. Information is obtained from the medical record. CT obtained on admission reveals chronic atrophic changes with white matter changes. EKG reveals a-fib with controlled ventricular response. Chest xray with pulmonary fibrosis, no overt heart failure. Laboratory data reviewed, hemoglobin 11.3, platelets 201, sodium 139, potassium 3.3, magnesium 1.9, creatinine on admission 2.9 and repeat a 2.19, cardiac enzymes negative 1, NT proBNP 6590 last admission greater than 6000 as well. Current daily cardiac medications include atorvastatin 10 mg daily, Cardizem 60 mg 3 times a day, Lasix 20 mg twice a day, losartan 50 mg daily, Zaroxolyn 5 mg Saturday and , Lopressor 50 mg twice a day and Diamox 250 mg Saturday. She is also been seen in consultation by nephrology. Diuretics are currently being held. She is being hydrated with normal saline at 75 mL an hour. She was recently admitted 10/2017 with pneumonia, a-fib with RVR, positive blood cultures and positive urine cultures as well. At that time she was treated with IV lasix for diastolic heart failure and beta blockers were increased. Review of Systems ROS unobtainable: due to mental status Past Medical History Past Medical History: Heart Failure, COPD, Dementia, GERD/Reflux, Hyperlipidemia , Hypertension, Pneumonia, Renal Disease, Respiratory Disorder, Thyroid Disorder Additional Past Medical History / Comment(s): Pt was born with cleft palate and other physical problems with facial structures including nasal passages and ear canals and festus at bedside states that the ear canals are collapsing. 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 Last Myocardial Infarction Date:: unknown History of Any Multi-Drug Resistant Organisms: ESBL Date of last positivie culture/infection: 09/29/17 MDRO Source:: ESBL URINE Past Surgical History: Bladder Surgery, Hysterectomy, Joint Replacement, Orthopedic Surgery Additional Past Surgical History / Comment(s): Pt has had multiple surgeries for defects affecting mouth, nose and ears, total L knee arthroplasty, bladder sling, fistula L arm.PARTIAL HYSTERECTOMY, PICC LINE-SINCE REMOVED Past Anesthesia/Blood Transfusion Reactions: No Reported Reaction Smoking Status: Former smoker - Past Family History Father Family Medical History: Cancer Additional Family Medical History / Comment(s): Father prior to age 60 yrs with esophageal cancer. He was a smoker and a drinker. Mother Family Medical History: Osteoarthritis (OA), Renal Disease, Rheumatoid Arthritis (RA) Additional Family Medical History / Comment(s): kidney problems, specific type unknown Medications and Allergies Home Medications Medication Instructions Recorded Confirmed Type Fluticasone Nasal [place] [Flonase 1 spray EA NOSTRIL Q12H 02/16/17 02/05/18 History Nasal [place]] Levothyroxine Sodium [Synthroid] 25 mcg PO DAILY@0600 02/16/17 02/05/18 History Acetaminophen Tab [Tylenol] 650 mg PO Q6HR PRN tab 02/20/17 02/05/18 Rx ALPRAZolam [Xanax] 0.25 mg PO HS 04/12/17 02/05/18 History Albuterol Nebulized [Ventolin 2.5 mg INHALATION RT-Q4H PRN 04/12/17 02/05/18 History Nebulized] Atorvastatin [Lipitor] 10 mg PO HS@2100 04/12/17 02/05/18 History Buprenorphine [Butrans 10 MCG/HOUR] 1 patch TRANSDERM TU 04/12/17 02/05/18 History Ergocalciferol (Vitamin D2) 50,000 unit PO Q30D 04/12/17 02/05/18 History [Vitamin D2] Loratadine [Claritin] 10 mg PO DAILY PRN 04/12/17 02/05/18 History Metolazone [Zaroxolyn] 5 mg PO MOTH 04/12/17 02/05/18 History Potassium Chloride [Klor-Con 20] 20 meq PO BID@0900,1700 04/12/17 02/05/18 History Ranitidine HCl [Zantac] 150 mg PO BID@0600,1700 04/12/17 02/05/18 History guaiFENesin [guaiFENesin Oral 200 mg PO Q4HR PRN 04/12/17 02/05/18 History Solution] prednisoLONE ACETATE [Pred Forte 2 drop BOTH EYES DAILY 04/12/17 02/05/18 History 1%] Magnesium Hydroxide [Milk of 2,400 mg PO DAILY PRN ml 04/15/17 02/05/18 Rx Magnesia Concentrate] Sennosides-Docusate Sodium 1 tab PO BID #60 tablet 04/15/17 02/05/18 Rx [Senokot-S] Ferrous Sulfate [Feosol] 325 mg PO BID@0900,1700 09/30/17 02/05/18 History Latanoprost [Xalatan 0.005%] 1 drop LEFT EYE HS 09/30/17 02/05/18 History Melatonin 3 mg PO HS 09/30/17 02/05/18 History Triad Hydrophilic Wound Paste 1 applic TOPICAL Q12H 09/30/17 02/05/18 History Vit C/E/Zn/Coppr/Lutein/Zeaxan 1 cap PO BID 09/30/17 02/05/18 History [Preservision Areds 2 Softgel] acetaZOLAMIDE [Diamox] 250 mg PO TU 09/30/17 02/05/18 History Diltiazem Oral [Cardizem*] 60 mg PO TID tab 10/07/17 02/05/18 Rx Metoprolol Tartrate [Lopressor] 50 mg PO BID tab 10/07/17 02/05/18 Rx Allopurinol [Zyloprim] 200 mg PO DAILY tab 10/08/17 02/05/18 Rx Clotrimazole/Betamethasone Dip 1 applic TOPICAL BID 02/05/18 02/05/18 History [Lotrisone Cream] Furosemide [Lasix] 20 mg PO BID 02/05/18 02/05/18 History HYDROcodone/APAP 5-325MG [Maxbass 1 tab PO Q8H PRN 02/05/18 02/05/18 History 5-325] Losartan [Cozaar] 50 mg PO DAILY 02/05/18 02/05/18 History Yrkpssrr-Huudcbqjl-Oyrekxju 1 applic LEFT EYE TID 02/05/18 02/05/18 History [Maxitrol Ophth Oint] Warfarin [Coumadin] 2 mg PO SUSA 02/05/18 02/05/18 History Allergies Allergy/AdvReac Type Severity Reaction Status Date / Time No Known Allergies Allergy Verified 02/05/18 12:36 Physical Exam Vitals: Vital Signs Temp Pulse Pulse Resp BP BP Pulse Ox 02/06/18 11:19 88 02/06/18 11:10 88 02/06/18 11:06 88 02/06/18 07:15 84 02/06/18 07:05 82 98 02/06/18 06:56 96.9 F L 83 20 159/81 96 02/06/18 03:04 20 02/05/18 23:44 94 02/05/18 23:36 93 02/05/18 23:00 97.1 F L 98 20 169/73 92 L 02/05/18 20:09 92 02/05/18 19:50 94 97 02/05/18 18:35 98.5 F 101 H 20 182/89 96 02/05/18 17:46 110 H 18 177/80 98 02/05/18 15:30 99.1 F 99 20 143/64 97 02/05/18 14:35 96 18 131/95 96 Intake and Output 02/05/18 02/06/18 02/06/18 22:59 06:59 14:59 Other: Voiding Method Diaper Incontinent # Voids 4 # Bowel Movements 0 Blood pressure 159/81 heart rate 83 afebrile maintaining oxygen saturation on room air GENERAL: This is a 82-year-old female in no apparent distress at the time of my examination. HEENT: Head is atraumatic, normocephalic. Pupils are equal, round. Sclerae anicteric. Conjunctivae are clear. Mucous membranes of the mouth are moist. Neck is supple. There is no jugular venous distention. No carotid bruit is heard. LUNGS: Clear to auscultation no wheezes, rales or rhonchi. No chest wall tenderness is noted on palpation or with deep breathing. HEART: Irregular rate and rhythm with systolic ejection murmur, no rubs or gallops. S1 and S2 heard. ABDOMEN: Soft, nontender. Bowel sounds are heard. No organomegaly noted. EXTREMITIES: No evidence of peripheral edema and no calf tenderness noted. VASCULAR: Radial and dorsalis pedis pulses palpated, no evidence of clubbing. NEUROLOGIC: Patient is awake, alert and oriented x3. Results 02/05/18 12:34 02/06/18 13:00 Comprehensive Metabolic Panel 02/06/18 Range/Units 13:00 Sodium 139 (137-145) mmol/L Potassium 3.3 L (3.5-5.1) mmol/L Chloride 102 (98-107) mmol/L Carbon Dioxide 24 (22-30) mmol/L BUN 66 H (7-17) mg/dL Creatinine 2.19 H (0.52-1.04) mg/dL Glucose 162 H (74-99) mg/dL Calcium 10.4 H (8.4-10.2) mg/dL Current Medications Generic Name Dose Route Start Last Admin Trade Name Freq PRN Reason Stop Dose Admin Acetaminophen 650 mg 02/05/18 17:59 Tylenol Tab PO Q6HR PRN Mild Pain or Fever > 100.5 Hydrocodone Bitart/Acetaminophen 1 each 02/05/18 17:59 Maxbass 5-325 PO Q8H PRN Pain Albuterol/Ipratropium 3 ml 02/05/18 20:00 02/06/18 11:09 Duoneb 0.5 Mg-3 Mg/3 Ml Soln INHALATION 3 ml RT-Q4H DEEPTI Administration Allopurinol 200 mg 02/06/18 09:00 02/06/18 10:43 Zyloprim PO 200 mg DAILY DEEPTI Administration Alprazolam 0.25 mg 02/05/18 21:00 02/05/18 21:52 Xanax PO 0.25 mg HS DEEPTI Administration Apixaban 2.5 mg 02/06/18 21:00 Eliquis PO BID DEEPTI Atorvastatin Calcium 10 mg 02/05/18 21:00 02/05/18 21:49 Lipitor PO 10 mg HS@2100 DEEPTI Administration Betamethasone/Clotrimazole 1 applic 02/05/18 21:00 02/06/18 09:50 Lotrisone TOPICAL 1 applic BID DEEPTI Administration Ceftriaxone Sodium 1,000 mg 02/06/18 18:00 Rocephin IVP Q24H [facility] Diltiazem HCl 60 mg 02/05/18 22:00 02/06/18 09:47 Cardizem Oral PO 60 mg TID [facility] Administration Ergocalciferol 50,000 unit 02/07/18 09:00 Vitamin D2 PO Q30D DEEPTI Famotidine 20 mg 02/06/18 06:00 02/06/18 06:16 Pepcid PO 20 mg BID@0600,1700 [facility] Administration Ferrous Sulfate 325 mg 02/06/18 09:00 02/06/18 09:47 Feosol PO 325 mg BID@0900,1700 [facility] Administration Fluticasone Propionate 1 spray 02/05/18 18:00 02/06/18 06:15 Flonase Nasal Grulla EA NOSTRIL 1 spray Q12H [facility] Administration Guaifenesin 200 mg 02/05/18 17:59 Robitussin PO Q4HR PRN Cough Sodium Chloride 1,000 mls @ 100 mls/hr 02/05/18 18:00 02/06/18 12:14 Saline 0.9% IV Not Given .Q10H DEEPTI Dextrose/Sodium Chloride 1,000 mls @ 75 mls/hr 02/06/18 11:15 02/06/18 12:14 Dextrose 5%-Ns Iv Soln IV 75 mls/hr .[id number] [facility] Administration Latanoprost 1 drops 02/05/18 21:00 02/05/18 21:49 Xalatan 0.005% LEFT EYE 1 drops HS DEEPTI Administration Levothyroxine Sodium 25 mcg 02/06/18 06:00 02/06/18 06:12 Synthroid PO 25 mcg DAILY@0600 DEEPTI Administration Loratadine 10 mg 02/05/18 17:59 Claritin PO DAILY PRN Allergy Symptoms Losartan Potassium 50 mg 02/06/18 09:00 02/06/18 10:43 Cozaar PO 50 mg DAILY DEEPTI Administration Magnesium Hydroxide 2,400 mg 02/05/18 17:59 Milk Of Magnesia PO DAILY PRN Constipation Melatonin 3 mg 02/05/18 21:00 02/05/18 21:47 Melatonin PO 3 mg HS DEEPTI Administration Methylprednisolone Sodium Succinate 60 mg 02/05/18 18:30 02/06/18 12:13 Solu-Medrol IV 60 mg Q6HR DEEPTI Administration Metoprolol Tartrate 50 mg 02/05/18 21:00 02/06/18 09:46 Lopressor PO 50 mg BID DEEPTI Administration Multi-Ingred Cream/Lotion/Oil/Oint 1 applic 02/05/18 18:00 02/06/18 06:17 Eucerin Cream TOPICAL 1 applic Q12H DEEPTI Administration Multivitamins/Minerals 1 each 02/05/18 20:00 02/06/18 09:46 Ivite PO 1 each BID@1200,1800 DEEPTI Administration Neomycin/Polymyxin/Dexamethasone 1 applic 02/05/18 22:00 02/06/18 09:48 Maxitrol Ophth Oint LEFT EYE 1 applic TID DEEPTI Administration Non-Formulary Medication 1 patch 02/11/18 12:00 Buprenorphine [Butrans 10 Mcg/Hour] TRANSDERM TU DEEPTI Potassium Chloride 20 meq 02/06/18 09:00 02/06/18 09:47 K-Dur 20 PO 20 meq BID@0900,1700 DEEPTI Administration Prednisolone Acetate 2 drops 02/06/18 09:00 02/06/18 09:49 Pred Forte 1% BOTH EYES 2 drops DAILY DEEPTI Administration Senna/Docusate Sodium 1 each 02/05/18 21:00 02/06/18 09:47 Senokot-S PO 1 each BID DEEPTI Administration Intake and Output 02/05/18 02/06/18 02/06/18 22:59 06:59 14:59 Other: Voiding Method Diaper Incontinent # Voids 4 # Bowel Movements 0 02/05/18 12:34 02/06/18 13:00 Assessment and Plan Assessment: ASSESSMENT Altered mental status status post fall Urinary tract infection Chronic diastolic dysfunction currently euvolemic. Pulmonary fibrosis Pulmonary hypertension, RVSP 45.94 mmHg Acute on chronic kidney disease, GFR on admission 14. PLAN Echocardiogram obtained reveals preserved left ventricular systolic function with ejection fraction 50-55%, moderately dilated left atrium, mild to moderate TR, mild to moderate pulmonary hypertension with an RVSP of 45.94 mmHg. Hold diuretics. Gentle hydration. Change anticoagulation to Eliquis 2.5 mg daily. We will check for coverage. Further recommendations to follow based on clinical course. Thank you kindly for this consultation. Nurse Practitioner note has been reviewed, I agree with a documented findings and plan of care. Patient was seen and examined.
--- NOTE | 2018-02-06 14:57 | CDI ---
Last Revision, May 2017 Documentation Clarification Form Date: 02/06/2018 2:41:17 PM From: Deborah Bui RN, CCDS Admit Date: 02/05/2018 5:55:00 PM Patient Name: Franko Sawyer Visit Number: [id number] ATTENTION: The Clinical Documentation Specialists (CDI) and [facility] Coding Staff appreciate your assistance in clarifying documentation. Please respond to the clarification below the line at the bottom and electronically sign. The CDI & [facility] Coding staff will review the response and follow-up if needed. Please note: Queries are made part of the Legal Health Record. If you have any questions, please contact the author of this message via ITS. 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 Stated Complaint: fall, altered mental status 02/06 H&P: "She has some confusion" Labs: BUN 76/66, Creatinine 2.99/2.19, U/A: + 02/05 CXR: "possible pulmonary venous hypertension and interstitial edema." 02/05 CT Brain: "Age-related atrophy with periventricular white matter ischemic type changes. Treatment: Rocephin 1 gm IVP Q 24 hrs D5.45 @ 75 cc/hr In your professional opinion, please clarify the etiology of the altered mental status, if known. Encephalopathy (specify Type- Metabolic, Toxic, Etc. and Underlying Medical Illness) Dementia (if know, specify Type and if with/without Behavioral Disturbance) Other condition (please specify) Unable to determine Please continue to document in your progress notes and discharge summary in order to capture severity of illness and risk of mortality. Include clinical findings that support your diagnosis. MTDD
--- NOTE | 2018-02-06 15:13 | CDI ---
Last Revision, May 2017 Documentation Clarification Form Date: 02/06/2018 2:59:02 PM From: Deborah Bui RN, CCDS Admit Date: 02/05/2018 5:55:00 PM Patient Name: Franko Sawyer Visit Number: [id number] ATTENTION: The Clinical Documentation Specialists (CDI) and [facility] Coding Staff appreciate your assistance in clarifying documentation. Please respond to the clarification below the line at the bottom and electronically sign. The CDI & [facility] Coding staff will review the response and follow-up if needed. Please note: Queries are made part of the Legal Health Record. If you have any questions, please contact the author of this message via ITS. Pablo Gillespie MD History/Risk Factors: CHF, COPD, Pneumonia, CRF stage 4 Tobacco use: ex-smoker Home oxygen: 3L nasal cannula Clinical Indicators: Vital signs: Temp 97.2, HR 96, RR 20, B/P 186/86, Spo2 97% ra Pulse oximetry: 2l NC 02/06 Nephro Lung/Breathing assessment: "LUNGS: Lungs are clear to auscultation and percussion." Treatment: Breathing TX: Duoneb Q 4 hrs INH Pulse ox: per unit protocol O2: 2l nasal cannula In your professional opinion, can you please clarify if these findings signify one of the following conditions? Chronic hypoxic respiratory failure Chronic hypercapnic respiratory failure Other Diagnosis, please specify Unable to determine Please continue to document in your progress notes and discharge summary in order to capture severity of illness and risk of mortality. Include clinical findings that support your diagnosis. MTDD
[2018-02-06] MEDS: cefTRIAXone IN SWFI 1,000 MG/10 ML SYRINGE IVP SCH (18:48)
--- NOTE | 2018-02-06 20:45 | P.CNNES ---
History of Present Illness Consult date: 02/06/18 History of Present Illness: The patient is an 82-year-old female who is a resident of an on the [facility]. Apparently the patient had a fall in the bathroom. Arden was found to have bruising and wounds on her body and was taken to [facility] emergency room on 02/05/2018. The patient is a poor historian. He denies any pain or headache. Arden has difficulty with speech due to cleft palate and other facial and nasal impairments. So has some deafness in the right ear. She was admitted to the hospital with urinary tract infection and COPD exacerbation as well as dehydration and renal failure syndrome and fall. Neurology is requested to see the patient regarding fall. Patient does not recall falling. Rarely the patient was found on the floor the bathroom and had some scrapes on her body. At a CAT scan of the brain in the emergency room which showed age-related atrophy and she had a CAT scan of the cervical spine in the emergency room which showed degenerative disc changes. Review of Systems ROS unobtainable: due to mental status Past Medical History Past Medical History: Heart Failure, COPD, Dementia, GERD/Reflux, Hyperlipidemia , Hypertension, Pneumonia, Renal Disease, Respiratory Disorder, Thyroid Disorder Additional Past Medical History / Comment(s): Pt was born with cleft palate and other physical problems with facial structures including nasal passages and ear canals and festus at bedside states that the ear canals are collapsing. 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 Last Myocardial Infarction Date:: unknown History of Any Multi-Drug Resistant Organisms: ESBL Date of last positivie culture/infection: 09/29/17 MDRO Source:: ESBL URINE Past Surgical History: Bladder Surgery, Hysterectomy, Joint Replacement, Orthopedic Surgery Additional Past Surgical History / Comment(s): Pt has had multiple surgeries for defects affecting mouth, nose and ears, total L knee arthroplasty, bladder sling, fistula L arm.PARTIAL HYSTERECTOMY, PICC LINE-SINCE REMOVED Past Anesthesia/Blood Transfusion Reactions: No Reported Reaction Smoking Status: Former smoker - Past Family History Father Family Medical History: Cancer Additional Family Medical History / Comment(s): Father prior to age 60 yrs with esophageal cancer. He was a smoker and a drinker. Mother Family Medical History: Osteoarthritis (OA), Renal Disease, Rheumatoid Arthritis (RA) Additional Family Medical History / Comment(s): kidney problems, specific type unknown Medications and Allergies Home Medications Medication Instructions Recorded Confirmed Type Fluticasone Nasal [place] [Flonase 1 spray EA NOSTRIL Q12H 02/16/17 02/05/18 History Nasal [place]] Levothyroxine Sodium [Synthroid] 25 mcg PO DAILY@0600 02/16/17 02/05/18 History Acetaminophen Tab [Tylenol] 650 mg PO Q6HR PRN tab 02/20/17 02/05/18 Rx ALPRAZolam [Xanax] 0.25 mg PO HS 04/12/17 02/05/18 History Albuterol Nebulized [Ventolin 2.5 mg INHALATION RT-Q4H PRN 04/12/17 02/05/18 History Nebulized] Atorvastatin [Lipitor] 10 mg PO HS@2100 04/12/17 02/05/18 History Buprenorphine [Butrans 10 MCG/HOUR] 1 patch TRANSDERM TU 04/12/17 02/05/18 History Ergocalciferol (Vitamin D2) 50,000 unit PO Q30D 04/12/17 02/05/18 History [Vitamin D2] Loratadine [Claritin] 10 mg PO DAILY PRN 04/12/17 02/05/18 History Metolazone [Zaroxolyn] 5 mg PO MOTH 04/12/17 02/05/18 History Potassium Chloride [Klor-Con 20] 20 meq PO BID@0900,1700 04/12/17 02/05/18 History Ranitidine HCl [Zantac] 150 mg PO BID@0600,1700 04/12/17 02/05/18 History guaiFENesin [guaiFENesin Oral 200 mg PO Q4HR PRN 04/12/17 02/05/18 History Solution] prednisoLONE ACETATE [Pred Forte 2 drop BOTH EYES DAILY 04/12/17 02/05/18 History 1%] Magnesium Hydroxide [Milk of 2,400 mg PO DAILY PRN ml 04/15/17 02/05/18 Rx Magnesia Concentrate] Sennosides-Docusate Sodium 1 tab PO BID #60 tablet 04/15/17 02/05/18 Rx [Senokot-S] Ferrous Sulfate [Feosol] 325 mg PO BID@0900,1700 09/30/17 02/05/18 History Latanoprost [Xalatan 0.005%] 1 drop LEFT EYE HS 09/30/17 02/05/18 History Melatonin 3 mg PO HS 09/30/17 02/05/18 History Triad Hydrophilic Wound Paste 1 applic TOPICAL Q12H 09/30/17 02/05/18 History Vit C/E/Zn/Coppr/Lutein/Zeaxan 1 cap PO BID 09/30/17 02/05/18 History [Preservision Areds 2 Softgel] acetaZOLAMIDE [Diamox] 250 mg PO TU 09/30/17 02/05/18 History Diltiazem Oral [Cardizem*] 60 mg PO TID tab 10/07/17 02/05/18 Rx Metoprolol Tartrate [Lopressor] 50 mg PO BID tab 10/07/17 02/05/18 Rx Allopurinol [Zyloprim] 200 mg PO DAILY tab 10/08/17 02/05/18 Rx Clotrimazole/Betamethasone Dip 1 applic TOPICAL BID 02/05/18 02/05/18 History [Lotrisone Cream] Furosemide [Lasix] 20 mg PO BID 02/05/18 02/05/18 History HYDROcodone/APAP 5-325MG [[place] 1 tab PO Q8H PRN 02/05/18 02/05/18 History 5-325] Losartan [Cozaar] 50 mg PO DAILY 02/05/18 02/05/18 History Ulmqlntk-Npnjbilwa-Ufpjspgo 1 applic LEFT EYE TID 02/05/18 02/05/18 History [Maxitrol Ophth Oint] Warfarin [Coumadin] 2 mg PO SUSA 02/05/18 02/05/18 History Allergies Allergy/AdvReac Type Severity Reaction Status Date / Time No Known Allergies Allergy Verified 02/05/18 12:36 Physical Examination - Vital Signs Vital Signs: Vital Signs Temp Pulse Pulse Resp BP Pulse Ox 02/06/18 19:55 85 02/06/18 19:46 86 20 02/06/18 19:45 84 02/06/18 15:00 98.1 F 89 16 171/84 97 02/06/18 11:19 88 02/06/18 11:10 88 02/06/18 11:06 88 02/06/18 07:15 84 02/06/18 07:05 82 98 02/06/18 06:56 96.9 F L 83 20 159/81 96 02/06/18 03:04 20 02/05/18 23:44 94 02/05/18 23:36 93 02/05/18 23:00 97.1 F L 98 20 169/73 92 L Intake and Output 02/06/18 02/06/18 02/06/18 06:59 14:59 22:59 Other: Voiding Method Diaper Diaper Diaper Incontinent Incontinent Incontinent # Voids 4 1 # Bowel Movements 0 - Constitutional General appearance: cooperative - EENT EENT: hearing diminished - Respiratory Respiratory: lungs clear - Cardiovascular Cardiovascular: regular rate - Neurologic Neurologic examination Mental status: Patient was partially deaf. She had difficulty following commands but she did follow some commands especially with visual cue. He had a speech impediment and has cleft palate. Cranial nerve examination: other (The patient has some facial asymmetry on the right. She has cleft palate and some facial nasal passage reconstruction. She has apparently some partial blindness from glaucoma in the right eye. Right cornea is opacified Her hearing is impaired.) Fundoscopic examination: other Speech examination: other (She does have a speech impediment likely related to cleft palate) Detailed motor examination: other (She was able to move all 4 extremities well) - Psychiatric Psychiatric: cooperative Results - Laboratory Findings CBC and BMP: 02/05/18 12:34 02/06/18 13:00 Abnormal Lab Findings: Abnormal Labs 02/05/18 02/05/18 02/05/18 12:33 12:34 12:34 Hgb 11.3 L MCHC 30.8 L RDW 16.3 H Lymphocytes # 0.7 L INR 1.2 H Potassium BUN Creatinine Glucose POC Glucose (mg/dL) 129 H Calcium Urine Protein Urine Nitrite Ur Leukocyte Esterase Urine WBC Urine Bacteria 02/05/18 02/05/18 02/06/18 12:34 12:51 13:00 Hgb MCHC RDW Lymphocytes # INR Potassium 3.3 L BUN 76 H 66 H Creatinine 2.99 H 2.19 H Glucose 113 H 162 H POC Glucose (mg/dL) Calcium 10.4 H Urine Protein Trace H Urine Nitrite Positive H Ur Leukocyte Esterase Large H Urine WBC 46 H Urine Bacteria Moderate H Assessment and Plan (1) Fall Current Visit: Yes Status: Acute Priority: High SNOMED Code(s): 9975398 (2) Dehydration Current Visit: Yes Status: Acute SNOMED Code(s): 48491134 (3) Facial contusion Current Visit: Yes Status: Acute SNOMED Code(s): 183542916 Plan: The patient is an 82-year-old woman who resides at a shelter. Apparently she had a fall in the bathroom. The patient is a poor historian. She does have a history of dementia. Recommend further evaluation of fall with carotid ultrasound and EEG. Patient did have a CT brain in the emergency room which did not show any acute abnormalities.
[2018-02-06] MEDS: MELATONIN 3 MG TABLET PO SCH (21:49)
[2018-02-06] MEDS: ATORVASTATIN 10 MG TAB PO SCH (21:49)
[2018-02-06] MEDS: LATANOPROST 0.005% OPHTH DROPS 2.5 ML BTL LEFT EYE SCH (21:50)
[2018-02-06] MEDS: APIXABAN 2.5 MG TABLET PO SCH (21:50)
[2018-02-06] MEDS: ALPRAZolam 0.25 MG TAB PO SCH (21:50)
[2018-02-07] MEDS ORDERED: IPRATROPIUM-ALBUTEROL 3 ML NEB INHALATION PRN (00:49)
[2018-02-07] MEDS: IPRATROPIUM-ALBUTEROL 3 ML NEB INHALATION SCH ×5 (00:51→19:56)
[2018-02-07] MEDS: methylPREDNISolone SOD SUCCI 125 MG/2 ML VIAL IV SCH ×4 (00:51→17:47)
[2018-02-07] MEDS: DEXTROSE 5%-0.9% NACL 1,000 ML IV SCH (01:03)
--- NOTE | 2018-02-07 06:13 | CONS ---
CONSULTATION DATE OF SERVICE: 02/06/2018. REASON FOR CONSULTATION: Urinary tract infection. HISTORY OF PRESENT ILLNESS: The patient is an 82-year-old female who was brought into the ER by the [facility] from a [facility] after the patient was found to be on the floor in the bathroom. The patient apparently did not fall. May have had some bruising on her left eye. The patient was noticing some confusion and garbled speech. Subsequently the patient was evaluated by the ER physician. She did have x-rays of the head and cervical spine with no acute bleed. Chest x-ray was negative. The patient did have mild low-grade fever of 99.1, however, white count was normal. The patient did have a positive UA with large leukocyte esterases, 46 WBC. The patient has been admitted hospital for management of underlying condition and concern for possibly UTI. Infectious Disease was consulted for further recommendation of antibiotic therapy. The patient also has a rash in bilateral groin area as well as on the leg. The patient overall is not a very good historian so most of the information has been obtained from prior review of the chart. REVIEW OF SYSTEMS: Could not be reliably obtained, though the positive points have been mentioned in the HPI. PAST MEDICAL HISTORY: Significant for heart failure, COPD, dementia, gastroesophageal reflux disease, hypertension, hyperlipidemia, chronic renal insufficiency, hypothyroidism, pneumonia, previous history of ESBL E. coli urinary tract infection. PAST SURGICAL HISTORY: Hysterectomy, total knee arthroplasty and multiple surgeries for defect. SOCIAL HISTORY: Remote history of smoking. No drinking. No drug use. 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 FAMILY HISTORY: Father from esophageal cancer. Mother with history osteoarthritis and renal insufficiency, rheumatoid arthritis. ALLERGIES: No known drug allergies. MEDICATION: Currently include the patient is on Tylenol, [place], DuoNeb, Zyloprim, Xanax, Eliquis, Lipitor, Lotrimin cream, Rocephin, Cardizem, Pepcid iron sulfate, Flonase, Robitussin, Synthroid, Claritin, Cozaar, melatonin, Solu-Medrol, Senokot. EXAMINATION: Blood pressure 129/62 with a pulse of 105, temperature of 98.2. She is 98% on room air. General description is an elderly female, lying in bed in no distress. No tachypnea or accessory muscle of respiration use. HEENT: Shows no pallor or scleral icterus. Oral mucosa is dry. No pharyngeal erythema or thrush. NECK: Trachea central. No thyromegaly. LUNGS: Unlabored breathing. Clear to auscultation anteriorly. No wheeze or crackle. HEART: S1, S2. Regular rate and rhythm. ABDOMEN: Soft, no tenderness, no guarding or rigidity. Examination of the bilateral groin area in the presence of the RN did show evidence of a erythematous rash suggestive of cutaneous candidiasis, but no cellulitis. NEUROLOGICAL: Patient is awake, alert, oriented x1. Mood and affect normal. LABS: BUN of 66, creatinine is 2.19, hemoglobin is 7.8, white count 5.7. Urine has been positive with nitrite and leukocyte esterase positive, 46 WBC. DIAGNOSTIC IMPRESSION AND PLAN: 1. Patient brought to the hospital after the patient did have a fall and was noticed to be in bathroom, patient who did have evidence of a positive UA with underlying urinary tract infection not entirely excluded. The patient is not a very good historian. 2. The patient did have evidence of bilateral groin rash, could be cutaneous candidiasis, but no active cellulitis. PLAN: 1. Rocephin 1 g IV piggyback daily. 2. Nystatin powder to bilateral groin area twice a day. 3. We will follow up on clinical condition as well as cultures to further adjust medication if needed. Thank you for this consultation. Will follow the patient with you. HARESHL / MEGHANNN: [id number] / MTDD
[2018-02-07] MEDS: FLUTICASONE 50MCG/SPRAY NASAL 16GM EA NOSTRIL SCH ×2 (06:36→17:47)
[2018-02-07] MEDS: FAMOTIDINE 20 MG TAB PO SCH (06:36)
[2018-02-07] MEDS: LEVOTHYROXINE 25 MCG TAB PO SCH (06:36)
[2018-02-07] MEDS: MINERAL OIL-WHITE PETROLATUM 120 GM JAR TOPICAL SCH ×2 (06:37→17:47)
[2018-02-07] MEDS: METOPROLOL TARTRATE 50 MG TAB PO SCH ×3 (08:14→20:51)
[2018-02-07] MEDS: APIXABAN 2.5 MG TABLET PO SCH ×3 (08:14→20:52)
[2018-02-07] MEDS: LOSARTAN 50 MG TAB PO SCH (08:14)
[2018-02-07] MEDS: DILTIAZEM ORAL 60 MG TAB PO SCH ×4 (08:14→20:51)
[2018-02-07] MEDS: ALLOPURINOL 100 MG TAB PO SCH (08:14)
[2018-02-07] MEDS: FERROUS SULFATE 325 MG TAB PO SCH ×2 (08:14→17:20)
[2018-02-07] MEDS: SENNOSIDES-DOCUSATE SODIUM 1 EACH TAB PO SCH ×3 (08:15→20:51)
[2018-02-07] MEDS: POTASSIUM CHLORIDE ER 20 MEQ TAB.ER PO SCH ×4 (08:15→20:39)
[2018-02-07] MEDS: CLOTRIMAZOLE/BETAMETH 1-0.05% CREAM 45 GM TUBE TOPICAL SCH ×2 (08:16→20:41)
[2018-02-07] MEDS: prednisoLONE ACETATE 1% OPHTH DROPS 5 ML BTL BOTH EYES SCH (08:16)
[2018-02-07] MEDS: NEOMYCIN-POLYMYXIN-DEXAMETH OINT 3.5 GM TUBE LEFT EYE SCH ×3 (08:16→20:41)
[2018-02-07 08:57] LABS: Calcium 10.4 mg/dL (8.4-10.2)
[2018-02-07] MEDS ORDERED: ERGOCALCIFEROL 50,000 UNIT CAP PO SCH (09:00)
--- NOTE | 2018-02-07 11:46 | US ---
EXAMINATION TYPE: US carotid duplex BILAT DATE OF EXAM: 02/07/2018 COMPARISON: NONE CLINICAL HISTORY: Fall. patient confused and unable to answer question EXAM MEASUREMENTS: RIGHT: Peak Systolic Velocity (PSV) cm/sec ----- Right CCA: 83.1 ----- Right ICA: 129.7 ----- Right ECA: 133.2 ICA/CCA ratio: 1.6 RIGHT: End Diastole cm/sec ----- Right CCA: 12.8 ----- Right ICA: 24.7 ----- Right ECA: 0.0 LEFT: Peak Systolic Velocity (PSV) cm/sec ----- Left CCA: 57.8 ----- Left ICA: 131.9 ----- Left ECA: 106.9 ICA/CCA ratio: 2.3 LEFT: End Diastole cm/sec ----- Left CCA: 11.7 ----- Left ICA: 15.6 ----- Left ECA: 5.3 VERTEBRALS (direction of flow): Right Vertebral: Antegrade Left Vertebral: Antegrade Rhythm: Arrhythmia mild heterogenous plaque with increased velocities noted at left proximal ICA Grayscale, color Doppler, spectral Doppler imaging performed of the carotid arteries. Waveform analys is does not show significant stenosis of the proximal internal carotid artery on the right however st enosis of the proximal internal carotid artery on the left suggests the range of 50-69% diameter red uction. IMPRESSION: There is a cardiac arrhythmia. Findings suggest possible hemodynamic significant stenosis of the proximal internal carotid artery on the left responding to 50-69% diameter reduction by Doppl er criteria, an indirect measurement of carotid stenosis, CTA or MRA may be of benefit.
[2018-02-07] MEDS: VIT A,C & E-LUTEIN-MINERALS 1 EACH TAB PO SCH ×2 (12:24→17:49)
--- NOTE | 2018-02-07 12:28 | P.PN ---
Subjective Mrs. Sawyer is seen and examined sitting up in bed. Past medical history significant for paroxysmal atrial fibrillation on prison anticoagulation with coumadin, diastolic congestive heart failure, hypertension, dyslipidemia, dementia, COPD and chronic kidney disease. She has been seen in consultation by neurology services and they have recommended obtaining carotid Dopplers as well as EEG. Findings suggest possible hemodynamic significant stenosis of the proximal internal carotid artery on the left responding to 50-69% diameter reduction by Doppler criteria. Recommend CTA or MRA. She denies symptoms of chest pain, shortness of breath, dizziness or palpitations. Blood pressure prior to a.m. medications 179/76 heart rate 89 afebrile maintaining oxygen saturation on nasal cannula. Laboratory data reviewed, sodium 142, potassium 3.0, creatinine 2.07. Objective - Vital Signs Vital signs: Vital Signs Temp 97.9 F 02/07/18 05:55 Pulse 82 02/07/18 08:40 Resp 17 02/07/18 05:55 BP 179/76 02/07/18 05:55 Pulse Ox 98 02/07/18 05:55 Intake & Output 02/06/18 02/07/18 02/07/18 18:59 06:59 18:59 Other: Voiding Method Diaper Diaper Diaper Incontinent Incontinent Incontinent # Voids 1 2 1 # Bowel Movements 1 - Exam GENERAL: Well-appearing, well-nourished and in no acute distress. NECK: Supple without JVD or thyromegaly. LUNGS: Breath sounds clear to auscultation bilaterally. Respiration equal and unlabored. No wheezes, rales or rhonchi. HEART: Irregular rate and rhythm with systolic ejection murmur, no rubs or gallops. S1 and S2 heard. EXTREMITIES: Normal range of motion, no edema. No clubbing or cyanosis. Peripheral pulses intact. - Labs CBC & Chem 7: 02/05/18 12:34 02/07/18 07:48 Labs: Abnormal Lab Results - Last 24 Hours (Table) 02/06/18 02/07/18 Range/Units 13:00 07:48 Potassium 3.3 L 3.0 L (3.5-5.1) mmol/L BUN 66 H 60 H (7-17) mg/dL Creatinine 2.19 H 2.07 H (0.52-1.04) mg/dL Glucose 162 H 144 H (74-99) mg/dL Calcium 10.4 H 10.4 H (8.4-10.2) mg/dL Microbiology - Last 24 Hours (Table) 02/06/18 17:00 Urine Culture - Preliminary Urine,Catheterized Assessment and Plan Assessment: ASSESSMENT Altered mental status status post fall Urinary tract infection Chronic diastolic dysfunction currently euvolemic. Pulmonary fibrosis Pulmonary hypertension, RVSP 45.94 mmHg Acute on chronic kidney disease, GFR on admission 14. PLAN Creatinine is improving. If okay with nephrology we recommend she be discharged home on a small dose of Lasix. We will continue to follow as needed, please feel free to call with further questions or concerns. Nurse Practitioner note has been reviewed, I agree with a documented findings and plan of care. Patient was seen and examined.
--- NOTE | 2018-02-07 14:04 | PN ---
PROGRESS NOTE DATE OF SERVICE: 02/07/2018 REASON FOR FOLLOWUP: 1. Urinary tract infection. 2. Bilateral groin area cutaneous candidiasis. INTERVAL HISTORY: The patient is currently afebrile. She is awake, alert, up in the chair, eating her lunch. No significant chest pain, shortness of breath or cough. She complained of some pain to the groin area. Not able to clarify any further. PHYSICAL EXAMINATION: Blood pressure 179/76, pulse of 89, temperature 97.9. She is 98% on 2 L nasal cannula. General description is an elderly female, up in the chair in no distress. RESPIRATORY SYSTEM: Unlabored breathing, clear to auscultation anteriorly. HEART: S1, S2. Regular rate and rhythm. ABDOMEN: Soft, no tenderness. EXTREMITIES: No edema of the feet. LABS: BUN of 60, creatinine 2.07. Urine culture currently pending. DIAGNOSTIC IMPRESSION AND PLAN: 1. Patient admitted to the hospital with mental status changes and did have a fall with concern for possible urinary tract infection in view of positive UA. She is currently covered with Rocephin. Will be continued while waiting for the culture to finalize. 2. Patient with bilateral groin area cutaneous candidiasis, currently being treated with nystatin powder to continue. Continue supportive care. MMODL / IJN: [id number] /
--- NOTE | 2018-02-07 16:37 | PN ---
PROGRESS NOTE Patient is seen for followup for chronic kidney disease and acute kidney injury. She is currently maintained on IV fluids. Renal function has improved with creatinine down to 2.0 from 2.9 on initial admission. Patient does have CKD with baseline creatinine close to 1.8 to 2 mg/dL. She was admitted to the hospital with mental status changes. CT did not show any acute changes. Patient has been evaluated by Neurology as well. Currently patient is not on any medications to predispose to confusion. She has [employer] ordered, but I do not believe she has received any recently. On examination today, blood pressure was 179/76, heart rate 89 per minute. Previous blood pressure was 129/62. The patient is comfortable, awake. She is not in any acute distress. Her speech remains garbled. She is not able to follow instructions for SITE SAFETY COORDINATOR exam and checking for muscle strength. Patient, however, is moving all 4 extremities. Labs show sodium 142, potassium 3.0, BUN 60, serum creatinine 2.0. Hemoglobin was 11.3 g/dL. Serum calcium 10.4. ASSESSMENT: 1. Acute kidney injury, prerenal, currently improved. Patient is status post IV fluids. 2. Hypertension. Blood pressure was high this morning. Patient is maintained on Cozaar, which I will continue for now. She is also on Cardizem. 3. Hypokalemia, currently being replaced. 4. Mental status changes, status post evaluation by Neurology. 5. Facial contusion, status post fall. 6. Mild hypercalcemia. Patient is not on any calcitriol or calcium. I will check a PTH level and vitamin D level. She is maintained on vitamin D2 once a month. PLAN: Check PTH levels. Check vitamin D level. Encourage increased oral intake. Follow up with Neurology. Continue with Cozaar for now. Repeat labs in a.m. MMODL / IJN: [id number] /
[2018-02-07] MEDS ORDERED: Potassium Replacement Protocol 1 EACH MISC MISCELLANE PRN (17:22)
[2018-02-07] MEDS: cefTRIAXone IN SWFI 1,000 MG/10 ML SYRINGE IVP SCH (17:45)
[2018-02-07] MEDS: ALPRAZolam 0.25 MG TAB PO SCH ×2 (20:39→20:50)
[2018-02-07] MEDS: LATANOPROST 0.005% OPHTH DROPS 2.5 ML BTL LEFT EYE SCH (20:40)
[2018-02-07] MEDS: ATORVASTATIN 10 MG TAB PO SCH ×2 (20:40→20:50)
[2018-02-07] MEDS: MELATONIN 3 MG TABLET PO SCH ×2 (20:40→20:50)
[2018-02-08] MEDS: methylPREDNISolone SOD SUCCI 125 MG/2 ML VIAL IV SCH ×3 (00:23→11:16)
[2018-02-08] MEDS: FAMOTIDINE 20 MG TAB PO SCH (05:12)
[2018-02-08] MEDS: MINERAL OIL-WHITE PETROLATUM 120 GM JAR TOPICAL SCH ×2 (05:12→16:15)
[2018-02-08] MEDS: FLUTICASONE 50MCG/SPRAY NASAL 16GM EA NOSTRIL SCH ×2 (05:12→16:15)
[2018-02-08] MEDS: LEVOTHYROXINE 25 MCG TAB PO SCH (05:12)
[2018-02-08] MEDS: APIXABAN 2.5 MG TABLET PO SCH ×2 (07:57→20:38)
[2018-02-08] MEDS: ALLOPURINOL 100 MG TAB PO SCH (07:57)
[2018-02-08] MEDS: FERROUS SULFATE 325 MG TAB PO SCH ×2 (07:58→16:13)
[2018-02-08] MEDS: DILTIAZEM ORAL 60 MG TAB PO SCH ×3 (07:58→20:39)
[2018-02-08] MEDS: LOSARTAN 50 MG TAB PO SCH (07:58)
[2018-02-08] MEDS: METOPROLOL TARTRATE 50 MG TAB PO SCH ×2 (07:58→20:39)
[2018-02-08] MEDS: POTASSIUM CHLORIDE ER 20 MEQ TAB.ER PO SCH ×4 (07:58→16:13)
[2018-02-08] MEDS: SENNOSIDES-DOCUSATE SODIUM 1 EACH TAB PO SCH ×2 (07:59→20:39)
[2018-02-08] MEDS: CLOTRIMAZOLE/BETAMETH 1-0.05% CREAM 45 GM TUBE TOPICAL SCH ×2 (08:02→20:39)
[2018-02-08] MEDS: prednisoLONE ACETATE 1% OPHTH DROPS 5 ML BTL BOTH EYES SCH (08:03)
[2018-02-08 08:09] LABS: Calcium 10.8 mg/dL (8.4-10.2); Potassium 3.3 mmol/L (3.5-5.1)
[2018-02-08] MEDS: IPRATROPIUM-ALBUTEROL 3 ML NEB INHALATION SCH ×2 (08:40→08:42)
[2018-02-08] MEDS: NEOMYCIN-POLYMYXIN-DEXAMETH OINT 3.5 GM TUBE LEFT EYE SCH ×3 (09:14→20:39)
[2018-02-08] MEDS ORDERED: Potassium Replacement Protocol 1 EACH MISC MISCELLANE PRN (10:51)
[2018-02-08] MEDS: VIT A,C & E-LUTEIN-MINERALS 1 EACH TAB PO SCH ×2 (11:16→16:14)
--- NOTE | 2018-02-08 12:02 | PN ---
PROGRESS NOTE DATE OF SERVICE: 02/07/2018 SUBJECTIVE: An 82-year-old white female who is more with it today. She is responding and more alert today. She has been started on antifungal cream for some wounds and Infectious Disease consult is recommended. She has also had a low potassium level. Her creatinine is improved from 2.99 to 1.95. CARDIOVASCULAR: S1-S2. LUNGS: Clear. GI: Soft. HEMATOLOGY: Negative Homans. ASSESSMENT: 1. Prerenal renal failure, urinary tract infection, tinea cruris, acute kidney injury. 2. Hypertension. 3. Hypokalemia. 4. Facial contusion. 5. Mild hypercalcemia. Parathyroid level has been checked. Patient is stabilizing. Possible discharge home in the next couple days. MMODL / IJN: [id number] /
[2018-02-08] MEDS: methylPREDNISolone SOD SUCCI 40 MG/ML 1 ML VIAL IV SCH ×2 (16:03→23:30)
[2018-02-08] MEDS: cefTRIAXone IN SWFI 1,000 MG/10 ML SYRINGE IVP SCH (16:12)
[2018-02-08] MEDS ORDERED: WARFARIN 2 MG TAB PO SCH (18:00)
[2018-02-08] MEDS: ALPRAZolam 0.25 MG TAB PO SCH (20:38)
[2018-02-08] MEDS: LATANOPROST 0.005% OPHTH DROPS 2.5 ML BTL LEFT EYE SCH (20:39)
[2018-02-08] MEDS: ATORVASTATIN 10 MG TAB PO SCH (20:39)
[2018-02-08] MEDS: MELATONIN 3 MG TABLET PO SCH (20:39)
--- NOTE | 2018-02-08 22:11 | PN ---
PROGRESS NOTE Patient is seen for followup for acute kidney injury. Her renal function continues to improve. The serum creatinine is 1.9. She was 2.0 yesterday. The patient has received IV fluids. She also had altered mentation at the time of admission, which is slightly better. The patient is being followed by Neurology. CT scan was negative for acute changes. PHYSICAL EXAMINATION: Blood pressure is 145/88, heart rate 101 per minute. She is afebrile. Examination of the heart S1, S2. Examination lungs bilateral breath sounds are heard. Abdomen is soft, nontender. Examination lower extremities shows no significant edema. LAB: Show sodium 142, potassium 3.3, chloride 104, BUN 62, serum creatinine 1.95. ASSESSMENT: 1. Acute kidney injury, prerenal, currently improved. 2. Chronic kidney disease and NKF stage IV with baseline creatinine about 1.8-2 mg/dL. Renal function currently at baseline. 3. Hypokalemia. Will replace. 4. Hypercalcemia. Serum calcium is actually increasing. Vitamin D was not elevated and the PTH is pending. I will add a urine immunofixation as well, and if the PTH is elevated, I will start the patient on Sensipar. MMODL / IJN: [id number] /
--- NOTE | 2018-02-08 22:59 | PN ---
PROGRESS NOTE SUBJECTIVE: 82-year-old white female with COPD, UTI, pulmonary fibrosis, dehydration, chronic renal disease stage III. Creatinine is now down below 2 to 1.9 something down from 2.99. She is up more alert, being treated for UTI with IV Rocephin. Physical therapy will work with her. CARDIOVASCULAR: S1, S2. LUNGS: Clear. GI: Soft. Speech is little slurred per daughter and wants neurology to evaluate her. ASSESSMENT: 1. Chronic obstructive pulmonary disease. 2. Urinary tract infection. 3. Dehydration. 4. Renal insufficiency. Await neurology and speech therapy evaluation. Continue with broad-spectrum antibiotics. Follow up in next 24 to 48 hours. MMODL / IJN: [id number] /
[2018-02-09] MEDS: LEVOTHYROXINE 25 MCG TAB PO SCH (06:03)
[2018-02-09] MEDS: FLUTICASONE 50MCG/SPRAY NASAL 16GM EA NOSTRIL SCH ×2 (06:03→17:28)
[2018-02-09] MEDS: MINERAL OIL-WHITE PETROLATUM 120 GM JAR TOPICAL SCH ×2 (06:03→17:29)
[2018-02-09] MEDS: FAMOTIDINE 20 MG TAB PO SCH (06:03)
[2018-02-09 07:10] LABS: Anisocytosis Slight; Basophils % (A) 0 %; Eosinophils % (A) 0 %; HCT 41.5 % (34.0-46.0); HGB 12.6 gm/dL (11.4-16.0); Hypochromasia Slight; Lymphocytes # (A) 0.5 k/uL (1.0-4.8); Lymphocytes % (A) 5 %; MCH 25.8 pg (25.0-35.0); MCHC 30.3 g/dL (31.0-37.0); MCV 85.2 fL (80.0-100.0); Mean Platelet Volume 7.4; Monocytes # (A) 0.6 k/uL (0-1.0); Monocytes % (A) 6 %; Neutrophils % (A) 87 %; Platelet Count 210 k/uL (150-450); RBC 4.87 m/uL (3.80-5.40); RDW 16.4 % (11.5-15.5); WBC 9.2 k/uL (3.8-10.6)
[2018-02-09 07:23] LABS: Albumin 3.4 g/dL (3.5-5.0); Calcium 10.9 mg/dL (8.4-10.2); Potassium 3.8 mmol/L (3.5-5.1); Total Bilirubin 0.5 mg/dL (0.2-1.3); Total Protein 6.4 g/dL (6.3-8.2)
[2018-02-09] MEDS: methylPREDNISolone SOD SUCCI 40 MG/ML 1 ML VIAL IV SCH ×3 (08:29→23:53)
[2018-02-09] MEDS: DILTIAZEM ORAL 60 MG TAB PO SCH ×3 (08:30→20:34)
[2018-02-09] MEDS: FERROUS SULFATE 325 MG TAB PO SCH ×2 (08:30→17:28)
[2018-02-09] MEDS: POTASSIUM CHLORIDE ER 20 MEQ TAB.ER PO SCH ×2 (08:31→17:28)
[2018-02-09] MEDS: ALLOPURINOL 100 MG TAB PO SCH (08:31)
[2018-02-09] MEDS: CLOTRIMAZOLE/BETAMETH 1-0.05% CREAM 45 GM TUBE TOPICAL SCH ×2 (08:31→20:35)
[2018-02-09] MEDS: APIXABAN 2.5 MG TABLET PO SCH ×2 (08:31→20:34)
[2018-02-09] MEDS: prednisoLONE ACETATE 1% OPHTH DROPS 5 ML BTL BOTH EYES SCH (08:32)
[2018-02-09] MEDS: SENNOSIDES-DOCUSATE SODIUM 1 EACH TAB PO SCH ×2 (08:32→20:34)
[2018-02-09] MEDS: LOSARTAN 50 MG TAB PO SCH (08:32)
[2018-02-09] MEDS: METOPROLOL TARTRATE 50 MG TAB PO SCH ×2 (08:32→20:34)
[2018-02-09] MEDS: NEOMYCIN-POLYMYXIN-DEXAMETH OINT 3.5 GM TUBE LEFT EYE SCH ×3 (08:32→20:34)
[2018-02-09] MEDS: VIT A,C & E-LUTEIN-MINERALS 1 EACH TAB PO SCH ×2 (08:33→17:29)
[2018-02-09] MEDS ORDERED: amLODIPine 5 MG TAB PO STA (14:51)
--- NOTE | 2018-02-09 15:04 | PN ---
PROGRESS NOTE Creatinine is down to 1.92. She is up eating and drinking. Dr. Wylie has seen her for possible speech slurring but she sounds like she normally does to me. CARDIOVASCULAR: S1, S2. LUNGS: Clear. GI: Soft. ASSESSMENT: 1. Tinea cruris. 2. Urinary tract infection. 3. Dehydration. 4. Prerenal renal failure. 5. Chronic obstructive pulmonary disease. Continue current treatment. Possible discharge back to skilled nursing tomorrow. Lasix has been withheld due to renal insufficiency. Oral hydration is very important when she goes back to skilled nursing tomorrow. MMODL / IJN: [id number] /
[2018-02-09] MEDS: CINACALCET 30 MG TAB PO SCH (15:27)
--- NOTE | 2018-02-09 15:49 | PN ---
PROGRESS NOTE HISTORY: Patient is seen for followup for acute kidney injury on chronic kidney disease. Currently she is sitting up in a bedside chair. Patient is having her breakfast. She denies any significant complaints. She is off of IV fluids. Renal function has improved and back to baseline. PHYSICAL EXAMINATION: On examination today, blood pressure was 152/87, this morning 171/73, heart rate 105 per minute. She is afebrile. Examination of the heart S1, S2. Examination of lungs, bilateral breath sounds are heard. Abdomen is soft, nontender. Exam of lower extremities shows trace edema bilaterally. TITLE SEARCHER exam is grossly intact. LABS: Show sodium 141, potassium 3.8, BUN 64, serum creatinine 1.92, hemoglobin 12.6, calcium was 10.9. ASSESSMENT: 1. Acute kidney injury, prerenal, currently improved. 2. Hypercalcemia associated with hyperparathyroidism, which appears to be primary since the PTH is significantly elevated as well. Vitamin D level was not too high. I will start the patient on Sensipar. She is not a candidate for surgery given her advanced age unless the hypercalcemia does not improve with Sensipar. 3. Hypokalemia, status post replacement. 4. Hypertension, controlled. Continue with the Cozaar. 5. Mental status changes, somewhat improved. The patient is being followed by Neurology. PLAN: 1. Start Sensipar for hypercalcemia. 2. Avoid calcium supplements. MMODL / IJN: [id number] /
[2018-02-09] MEDS: cefTRIAXone IN SWFI 1,000 MG/10 ML SYRINGE IVP SCH (17:28)
--- NOTE | 2018-02-09 19:49 | P.PN ---
Subjective Progress Note Date: 02/09/18 The patient is a 82-year-old woman who resides at a group home who presented to the hospital after a fall. Patient is sitting up in a chair and is fully alert. She is very hard of hearing. She denies any headache or new weakness. has had a CAT scan of the brain and cervical spine in the emergency room. CAT scan of the brain showed atrophy and CAT scan of the cervical spine showed degenerative changes. She has had a carotid ultrasound during her hospital stay which shows arrhythmia as well as left ICA stenosis of 50-69%. Objective - Vital Signs Vital signs: Vital Signs Temp 97.4 F L 02/09/18 14:17 Pulse 107 H 02/09/18 14:17 Resp 20 02/09/18 14:17 BP 137/91 02/09/18 17:25 Pulse Ox 98 02/09/18 14:17 Intake & Output 02/09/18 02/09/18 02/10/18 06:59 18:59 06:59 Intake Total 100 120 Output Total 1 Balance 99 120 Weight 73.936 kg Intake: Oral 100 120 Output: Urine/Stool Mix 1 Other: Voiding Method Toilet # Voids 2 1 # Bowel Movements 1 0 - Constitutional General appearance: Present: average body habitus - EENT ENT: Present: hard of hearing - Respiratory Respiratory: bilateral: CTA - Cardiovascular Rhythm: regular - Neurologic Neurologic: Present: focal deficits (Patient does have some facial asymmetry due to 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.) - Musculoskeletal Musculoskeletal: Present: strength equal bilaterally - Labs CBC & Chem 7: 02/09/18 06:37 02/09/18 06:37 Labs: Abnormal Lab Results - Last 24 Hours (Table) 02/08/18 02/09/18 02/09/18 Range/Units 07:41 06:37 06:37 MCHC 30.3 L (31.0-37.0) g/dL RDW 16.4 H (11.5-15.5) % Neutrophils # 8.0 H (1.3-7.7) k/uL Lymphocytes # 0.5 L (1.0-4.8) k/uL BUN 64 H (7-17) mg/dL Creatinine 1.92 H (0.52-1.04) mg/dL Glucose 120 H (74-99) mg/dL Calcium 10.9 H (8.4-10.2) mg/dL Albumin 3.4 L (3.5-5.0) g/dL PTH Intact 259.9 H (14.0-72.0) pg/mL Assessment and Plan (1) Fall Current Visit: Yes Status: Acute Priority: High SNOMED Code(s): 4939816 (2) Dehydration Current Visit: Yes Status: Acute SNOMED Code(s): 06009805 (3) Facial contusion Current Visit: Yes Status: Acute SNOMED Code(s): 833942573 Plan: The patient is an 82-year-old woman who resides at a group home. Apparently she had a fall in the bathroom. The patient is a poor historian. She does have a history of dementia. She has had a carotid ultrasound which shows left ICA stenosis of 50-69%. This can be followed up outpatient . The patient is currently on Eliquis and is a fall risk.
[2018-02-09] MEDS: ALPRAZolam 0.25 MG TAB PO SCH (20:34)
[2018-02-09] MEDS: ATORVASTATIN 10 MG TAB PO SCH (20:34)
[2018-02-09] MEDS: MELATONIN 3 MG TABLET PO SCH (20:34)
[2018-02-09] MEDS: LATANOPROST 0.005% OPHTH DROPS 2.5 ML BTL LEFT EYE SCH (20:35)
[2018-02-09] MEDS: amLODIPine 5 MG TAB PO SCH (21:10)
[2018-02-09 23:07] VITALS: RESP 18
--- NOTE | 2018-02-09 23:43 | PN ---
PROGRESS NOTE DATE OF SERVICE: 02/09/2018. REASON FOR FOLLOWUP: Urinary tract infection. INTERVAL HISTORY: The patient is afebrile. She is more awake and alert. She is breathing comfortably. No chest pain. No abdominal pain. No diarrhea. EXAMINATION: Blood pressure 137/91 with a pulse of 107, temperature 97.4, she is 98% on room air. GENERAL DESCRIPTION: An elderly female up in the chair in no distress. RESPIRATORY SYSTEM: Unlabored breathing. Clear to auscultation anteriorly. HEART: S1, S2. Regular rate and rhythm. ABDOMEN: Soft, no tenderness. LABS: Hemoglobin is 12.3, white count 9.2, BUN of 64, creatinine is 1.92. Urine culture so far negative. DIAGNOSTIC IMPRESSION AND PLAN: 1-Patient admitted to the hospital with mental status changes, multifactorial, with possible component of urinary tract infection and the patient did have positive UA. So far culture has been negative. He is currently on Rocephin. That can be safely discontinued on discharge. 2-Bilateral groin area cutenous candidasis-- continue with nystatin powder twice daily x 7 days 3-Continue supportive care. MMODL / IJN: [id number] / MTDD
[2018-02-10] MEDS: FLUTICASONE 50MCG/SPRAY NASAL 16GM EA NOSTRIL SCH (06:19)
[2018-02-10] MEDS: LEVOTHYROXINE 25 MCG TAB PO SCH (06:19)
[2018-02-10] MEDS: FAMOTIDINE 20 MG TAB PO SCH (06:19)
[2018-02-10] MEDS: MINERAL OIL-WHITE PETROLATUM 120 GM JAR TOPICAL SCH (06:19)
[2018-02-10] MEDS: ALLOPURINOL 100 MG TAB PO SCH (07:55)
[2018-02-10] MEDS: CINACALCET 30 MG TAB PO SCH (07:55)
[2018-02-10] MEDS: FERROUS SULFATE 325 MG TAB PO SCH (07:56)
[2018-02-10] MEDS: POTASSIUM CHLORIDE ER 20 MEQ TAB.ER PO SCH (07:56)
[2018-02-10] MEDS: METOPROLOL TARTRATE 50 MG TAB PO SCH (07:56)
[2018-02-10] MEDS: amLODIPine 5 MG TAB PO SCH (07:56)
[2018-02-10] MEDS: methylPREDNISolone SOD SUCCI 40 MG/ML 1 ML VIAL IV SCH (07:57)
[2018-02-10] MEDS: APIXABAN 2.5 MG TABLET PO SCH (07:57)
[2018-02-10] MEDS: SENNOSIDES-DOCUSATE SODIUM 1 EACH TAB PO SCH (07:57)
[2018-02-10] MEDS: DILTIAZEM ORAL 60 MG TAB PO SCH (07:57)
[2018-02-10] MEDS: prednisoLONE ACETATE 1% OPHTH DROPS 5 ML BTL BOTH EYES SCH (07:58)
[2018-02-10] MEDS: NEOMYCIN-POLYMYXIN-DEXAMETH OINT 3.5 GM TUBE LEFT EYE SCH (07:58)
[2018-02-10] MEDS: CLOTRIMAZOLE/BETAMETH 1-0.05% CREAM 45 GM TUBE TOPICAL SCH (07:58)
[2018-02-10] MEDS ORDERED: LOSARTAN 50 MG TAB PO SCH (09:00)
[2018-02-10] MEDS: VIT A,C & E-LUTEIN-MINERALS 1 EACH TAB PO SCH (13:03)
--- NOTE | 2018-02-10 15:17 | PN ---
PROGRESS NOTE DATE OF SERVICE: 02/10/2018. REASON FOR FOLLOWUP: 1. Possible UTI. 2. Bilateral groin area cutaneous candidiasis. INTERVAL HISTORY: The patient is afebrile. The patient is breathing comfortably. Denies any chest pain, cough, abdominal pain. No diarrhea reported. EXAMINATION: Blood pressure 152/86 with a pulse of 96, temperature 97.9. She is 95% on room air. General description is an elderly female up in the chair in no distress. RESPIRATORY SYSTEM: Unlabored breathing. Decreased breath sounds at the bases. No wheeze. HEART: S1, S2. Regular rate and rhythm. ABDOMEN: Soft, no tenderness. EXTREMITIES: Right leg with cut, but no cellulitis. LABS: Hemoglobin 12.2, white count 9.2, BUN 64, creatinine 1.92. Urine culture so far negative. DIAGNOSTIC IMPRESSION/PLAN: 1. Patient admitted to the hospital with mental status changes likely multifactorial, possibly component of urinary tract infection. Urine culture has been negative. Rocephin to be discontinued on discharge. 2. Patient bilateral groin area cutaneous candidiasis. Nystatin powder twice a day for about a week. 3. Right leg wound from a cut. Local care with Aquacel Silver. Dressing to be changed q.48 hours. MMODL / IJN: [id number] /
[2018-02-10 15:36] VITALS: BP 144/84; PULSE 81; TEMP 97.4
--- NOTE | 2018-02-10 16:05 | DS ---
DISCHARGE SUMMARY 82-year-old white female came in with acute dehydration, acute renal insufficiency, urinary tract infection was treated with IV antibiotics, Lotrisone cream to the wounds on her left leg and left groin. IV antibiotics were given right up to discharge at which time she was sent home in stable condition after urinary tract infection was resolved. Taken off Lasix. Her creatinine greatly and improved due to she is admitted with dehydration. She will continue with current medications, off Lasix. in the snf. Urinary tract infection was treated and improved mental status on discharge. COPD exacerbation was treated with steroids, which is improved. Facial contusion was negative for any fractures and . PT/OT will be needed in the snf. MMODL / IJN: [id number] /
--- NOTE | 2018-02-10 18:56 | PN ---
PROGRESS NOTE Patient is seen for followup for acute kidney injury on top of chronic kidney disease. Patient's mentation seems to have improved. She is currently off of IV fluids. She has been tolerating oral intake. PHYSICAL EXAMINATION: On examination, blood pressure was 152/86, heart rate 96 per minute. She is afebrile. Examination of the heart S1, S2. Examination of the lungs bilateral breath sounds are heard. Abdomen is soft, nontender. Examination of lower extremities shows trace edema. CROWN IRONER exam is grossly intact. LAB: Show sodium 141, potassium 3.8, BUN 64, serum creatinine 1.92, hemoglobin 12.6 g/dL. Calcium is 10.9. ASSESSMENT: 1. Acute kidney injury on prerenal currently improved. 2. Chronic kidney disease stage 4. Renal function at baseline. 3. Hypercalcemia associated with hyperparathyroidism. PTH is significantly elevated at 259. The patient has been started on Sensipar. PLAN: Continue with Sensipar. May need to increase the dose as outpatient. Repeat labs in a.m. MMODL / IJN: [id number] /
[2018-02-10] MEDS ORDERED: NYSTATIN 100,000 UNIT/GM POWD 15 GM TOPICAL SCH (21:00)
[2018-02-11] MEDS ORDERED: acetaZOLAMIDE 250 MG TAB PO SCH (09:00)
[2018-02-11] MEDS ORDERED: BUPRENORPHINE TRANSDERM SCH (12:00)
--- NOTE | 2018-02-12 09:19 | CDI ---
Last Revision, May 2017 Documentation Clarification Form 2nd Request Date: 02/06/2018 2:41:17 PM From: Deborah Bui RN, CCDS Admit Date: 02/05/2018 5:55:00 PM Patient Name: Franko Sawyer Visit Number: [id number] ATTENTION: The Clinical Documentation Specialists (CDI) and [facility] Coding Staff appreciate your assistance in clarifying documentation. Please respond to the clarification below the line at the bottom and electronically sign. The CDI & [facility] Coding staff will review the response and follow-up if needed. Please note: Queries are made part of the Legal Health Record. If you have any questions, please contact the author of this message via ITS. 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 Stated Complaint: fall, altered mental status 02/06 H&P: "She has some confusion" Labs: BUN 76/66, Creatinine 2.99/2.19, U/A: + 02/05 CXR: "possible pulmonary venous hypertension and interstitial edema." 02/05 CT Brain: "Age-related atrophy with periventricular white matter ischemic type changes. Treatment: Rocephin 1 gm IVP Q 24 hrs D5.45 @ 75 cc/hr In your professional opinion, please clarify the etiology of the altered mental status, if known. Encephalopathy (specify Type- Metabolic, Toxic, Etc. and Underlying Medical Illness) Dementia (if know, specify Type and if with/without Behavioral Disturbance) Other condition (please specify) Unable to determine Please continue to document in your progress notes and discharge summary in order to capture severity of illness and risk of mortality. Include clinical findings that support your diagnosis. MTDD
--- NOTE | 2018-02-12 09:22 | CDI ---
Last Revision, May 2017 Documentation Clarification Form 2nd Request Date: 02/06/2018 2:59:02 PM From: Deborah Bui RN, CCDS Admit Date: 02/05/2018 5:55:00 PM Patient Name: Franko Sawyer Visit Number: [id number] ATTENTION: The Clinical Documentation Specialists (CDI) and [facility] Coding Staff appreciate your assistance in clarifying documentation. Please respond to the clarification below the line at the bottom and electronically sign. The CDI & [facility] Coding staff will review the response and follow-up if needed. Please note: Queries are made part of the Legal Health Record. If you have any questions, please contact the author of this message via ITS. Pablo Gillespie MD History/Risk Factors: CHF, COPD, Pneumonia, CRF stage 4 Tobacco use: ex-smoker Home oxygen: 3L nasal cannula Clinical Indicators: Vital signs: Temp 97.2, HR 96, RR 20, B/P 186/86, Spo2 97% ra Pulse oximetry: 2l NC 02/06 Nephro Lung/Breathing assessment: "LUNGS: Lungs are clear to auscultation and percussion." Treatment: Breathing TX: Duoneb Q 4 hrs INH Pulse ox: per unit protocol O2: 2l nasal cannula In your professional opinion, can you please clarify if these findings signify one of the following conditions? Chronic hypoxic respiratory failure Chronic hypercapnic respiratory failure Other Diagnosis, please specify Unable to determine Please continue to document in your progress notes and discharge summary in order to capture severity of illness and risk of mortality. Include clinical findings that support your diagnosis. MTDD
--- NOTE | 2018-02-25 11:18 | CDI ---
Last Revision, May 2017 Documentation Clarification Form 3rd Request Date: 02/06/2018 2:41:00 PM From: Deborah Bui RN, CCDS Admit Date: 02/05/2018 5:55:00 PM Patient Name: Franko Sawyer Visit Number: [id number] ATTENTION: The Clinical Documentation Specialists (CDI) and [facility] Coding Staff appreciate your assistance in clarifying documentation. Please respond to the clarification below the line at the bottom and electronically sign. The CDI & [facility] Coding staff will review the response and follow-up if needed. Please note: Queries are made part of the Legal Health Record. If you have any questions, please contact the author of this message via ITS. 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 Stated Complaint: fall, altered mental status 02/06 H&P: "She has some confusion" Labs: BUN 76/66, Creatinine 2.99/2.19, U/A: + 02/05 CXR: "possible pulmonary venous hypertension and interstitial edema." 02/05 CT Brain: "Age-related atrophy with periventricular white matter ischemic type changes. Treatment: Rocephin 1 gm IVP Q 24 hrs D5.45 @ 75 cc/hr In your professional opinion, please clarify the etiology of the altered mental status, if known. Encephalopathy (specify Type- Metabolic, Toxic, Etc. and Underlying Medical Illness) Dementia (if know, specify Type and if with/without Behavioral Disturbance) Other condition (please specify) Unable to determine Please continue to document in your progress notes and discharge summary in order to capture severity of illness and risk of mortality. Include clinical findings that support your diagnosis. MTDD
--- NOTE | 2018-02-25 11:30 | CDI ---
Last Revision, May 2017 Documentation Clarification Form 3rd Request Date: 02/06/2018 2:59:00 PM From: Deborah Bui RN, CCDS Admit Date: 02/05/2018 5:55:00 PM Patient Name: Franko Sawyer Visit Number: [id number] ATTENTION: The Clinical Documentation Specialists (CDI) and [facility] Coding Staff appreciate your assistance in clarifying documentation. Please respond to the clarification below the line at the bottom and electronically sign. The CDI & [facility] Coding staff will review the response and follow-up if needed. Please note: Queries are made part of the Legal Health Record. If you have any questions, please contact the author of this message via ITS. Pablo Weber MD History/Risk Factors: CHF, COPD, Pneumonia, CRF stage 4 Tobacco use: ex-smoker Home oxygen: 3L nasal cannula Clinical Indicators: Vital signs: Temp 97.2, HR 96, RR 20, B/P 186/86, Spo2 97% ra Pulse oximetry: 2l NC 02/06 Nephro Lung/Breathing assessment: "LUNGS: Lungs are clear to auscultation and percussion." Treatment: Breathing TX: Duoneb Q 4 hrs INH Pulse ox: per unit protocol O2: 2l nasal cannula In your professional opinion, can you please clarify if these findings signify one of the following conditions? Chronic hypoxic respiratory failure Chronic hypercapnic respiratory failure Other Diagnosis, please specify Unable to determine Please continue to document in your progress notes and discharge summary in order to capture severity of illness and risk of mortality. Include clinical findings that support your diagnosis. MTDD
--- NOTE | 2018-02-26 07:42 | DS ---
DISCHARGE SUMMARY Please add to the discharge summary: Metabolic encephalopathy. MMODL / IJN: [id number] /
--- NOTE | 2018-02-26 07:45 | DS ---
DISCHARGE SUMMARY Please add to the discharge summary: Chronic hypoxemic respiratory failure. MMODL / IJN: [id number] /
--- NOTE | 2018-02-26 11:27 | EEG ---
ELECTROENCEPHALOGRAM REPORT DATE OF EE02/07/2018 ELECTROENCEPHALOGRAPHIC EXAMINATION REPORT: INDICATION FOR EXAMINATION: This patient is an 82-year-old female with history of multiple falls. AGE: [age]. EEG FINDINGS: A routine 21 channel awake digital EEG recording was accomplished utilizing the 10-20 international system with bipolar and referential montages. The background activity in the most alert resting state consists of a low to medium amplitude, poorly developed and poorly sustained 5-6 Hz activity over the posterior head region. This posterior rhythm attenuates minimally to eye opening. There was an excessive amount of low amplitude beta activity seen in a generalized fashion throughout the tracing. No activation procedures were performed. No epileptiform discharges were seen. IMPRESSION: This EEG gives evidence of a severe widespread diffuse disturbance in cerebral function. The EEG failed to reveal any focal, lateralized, or epileptiform abnormalities. If clinically indicated a followup EEG is recommended. Clinical correlation is recommended. CLAUDIA / MEGHANNN: [id number] /
== END 2018-02-10 16:31 | DRG 190 ==
LOC: EC 12:23 → 4MS4W 17:55
PROVIDERS: ADMIT Family Medicine; ATTEND Family Medicine
DX: J44.1 Chronic obstructive pulmonary disease with (acute) exacerbation (principal); G93.41 Metabolic encephalopathy; I50.32 Chronic diastolic (congestive) heart failure; I13.0 Hypertensive heart and chronic kidney disease with heart failure and stage 1 through stage 4 chronic kidney disease, or unspecified chronic kidney disease; N18.4 Chronic kidney disease, stage 4 (severe); N17.9 Acute kidney failure, unspecified; N39.0 Urinary tract infection, site not specified; J96.11 Chronic respiratory failure with hypoxia; I27.20 Pulmonary hypertension, unspecified; I48.0 Paroxysmal atrial fibrillation; E86.0 Dehydration; J84.10 Pulmonary fibrosis, unspecified; S81.811A Laceration without foreign body, right lower leg, initial encounter; I07.1 Rheumatic tricuspid insufficiency; I65.22 Occlusion and stenosis of left carotid artery; F03.90 Unspecified dementia, unspecified severity, without behavioral disturbance, psychotic disturbance, mood disturbance, and anxiety; S00.83XA Contusion of other part of head, initial encounter; Z66 Do not resuscitate; E03.9 Hypothyroidism, unspecified; E87.6 Hypokalemia; K21.9 Gastro-esophageal reflux disease without esophagitis; R29.6 Repeated falls; E21.0 Primary hyperparathyroidism; E78.5 Hyperlipidemia, unspecified; B37.2 Candidiasis of skin and nail; B35.6 Tinea cruris; H40.9 Unspecified glaucoma; H91.93 Unspecified hearing loss, bilateral; H54.61 Unqualified visual loss, right eye, normal vision left eye; Z99.81 Dependence on supplemental oxygen; Z79.01 Long term (current) use of anticoagulants; Z79.890 Hormone replacement therapy; Z79.51 Long term (current) use of inhaled steroids; Z79.891 Long term (current) use of opiate analgesic; Z79.899 Other long term (current) drug therapy; Z87.440 Personal history of urinary (tract) infections; Z86.19 Personal history of other infectious and parasitic diseases; Z96.652 Presence of left artificial knee joint; Z87.730 Personal history of (corrected) cleft lip and palate; Z90.710 Acquired absence of both cervix and uterus; Z87.891 Personal history of nicotine dependence; Z87.01 Personal history of pneumonia (recurrent); Z97.4 Presence of external hearing-aid; W19.XXXA Unspecified fall, initial encounter; Y92.002 Bathroom of unspecified non-institutional (private) residence as the place of occurrence of the external cause; Z80.0 Family history of malignant neoplasm of digestive organs; Z84.1 Family history of disorders of kidney and ureter; Z82.61 Family history of arthritis
CPT/HCPCS: 36415; 70450; 71045; 72125; 80048; 80053; 81001; 82140; 82306; 82550; 82553; 83605; 83735; 83880; 83970; 84484; 85025; 85610; 85730; 86335; 87086; 93005; 93306; 93880; 94640; 94760; 95816; 96374; 99291

== ENCOUNTER 2018-02-24 12:50 | Inpatient (IN) | payer MEDICARE ==
[2018-02-24] MEDS ORDERED: guaiFENesin SYRUP 100MG/5ML 200 MG/10 ML CUP PO PRN (23:29)
[2018-02-24] MEDS ORDERED: MAGNESIUM HYDROXIDE 2,400 MG/10 ML CUP PO PRN (23:29)
[2018-02-24] MEDS ORDERED: IPRATROPIUM-ALBUTEROL 3 ML NEB INHALATION PRN (23:29)
[2018-02-24] MEDS ORDERED: ACETAMINOPHEN TAB 325 MG TAB PO PRN (23:29)
[2018-02-24] MEDS ORDERED: HYDROcodone/APAP 5-325MG 1 EACH TAB PO PRN (23:29)
[2018-02-25] MEDS: CINACALCET 30 MG TAB PO SCH (05:55)
[2018-02-25] MEDS: DILTIAZEM ORAL 60 MG TAB PO SCH ×3 (05:55→22:30)
[2018-02-25] MEDS: LEVOTHYROXINE 25 MCG TAB PO SCH (05:55)
[2018-02-25] MEDS ORDERED: BUPRENORPHINE TRANSDERM SCH (06:00)
[2018-02-25 07:43] LABS: Anisocytosis Slight; Basophils % (A) 0 %; Eosinophils # (A) 0.1 k/uL (0-0.7); Eosinophils % (A) 2 %; HCT 33.1 % (34.0-46.0); HGB 10.3 gm/dL (11.4-16.0); Hypochromasia Slight; Lymphocytes # (A) 0.4 k/uL (1.0-4.8); Lymphocytes % (A) 5 %; MCH 26.7 pg (25.0-35.0); MCHC 31.2 g/dL (31.0-37.0); MCV 85.6 fL (80.0-100.0); Mean Platelet Volume 7.2; Monocytes # (A) 0.4 k/uL (0-1.0); Monocytes % (A) 6 %; Neutrophils # (A) 6.4 k/uL (1.3-7.7); Neutrophils % (A) 86 %; Platelet Count 160 k/uL (150-450); RBC 3.87 m/uL (3.80-5.40); RDW 17.2 % (11.5-15.5); WBC 7.5 k/uL (3.8-10.6)
[2018-02-25 08:07] LABS: Albumin 2.7 g/dL (3.5-5.0); Calcium 9.6 mg/dL (8.4-10.2); Potassium 5.1 mmol/L (3.5-5.1); Total Bilirubin 0.8 mg/dL (0.2-1.3); Total Protein 5.3 g/dL (6.3-8.2)
[2018-02-25] MEDS ORDERED: NON-FORMULARY DRUG (Vit C/E/Zn/Coppr/Lutein/Zeaxan [Preservision Areds 2 Softgel] 1 CAP) PO SCH (09:00)
[2018-02-25] MEDS ORDERED: acetaZOLAMIDE 250 MG TAB PO SCH (09:00)
[2018-02-25] MEDS: METOPROLOL TARTRATE 50 MG TAB PO SCH ×2 (09:20→22:00)
--- NOTE | 2018-02-25 09:42 | HP ---
HISTORY AND PHYSICAL SUBJECTIVE: This is an 82-year-old white female admitted with slurred speech and altered mental status. HISTORY OF PRESENT ILLNESS: An 82-year-old white female, admitted with altered mental status, mainly a change in personality since she fell and hit her head 2 to 3 weeks ago with a concussion. She had a neurologic workup a week ago which was normal, but family is concerned that her personality is completely changed since she fell and she has got slurred speech that she never had before and they cannot understand her. They are worried about a stroke. She was admitted for stroke workup and psychiatric consult for change in personality since the fall and slurred speech workup. Neurology and Psychiatry are consulted. She is also being treated with low-grade urinary tract infection, which family states is not related to her slurred speech or change in her personality. She has just been taking Levaquin for this, which she is sensitive to. PAST MEDICAL HISTORY: She had pulmonary fibrosis, diastolic CHF, and she recently had some renal insufficiency which improved with rehydration as she was dehydrated on last admission. MEDICATIONS: See old list. FAMILY HISTORY: See old list. SOCIAL HISTORY: She does not smoke or drink. She lives at [facility]. REVIEW OF SYSTEMS: A 14-point review of systems is negative except for as mentioned in HPI. PHYSICAL EXAM: Temperature 97, pulse rate low 100s, respiratory rate 17 to 20. She is 93% on room air. Blood pressure is 150s over 110s. Possibly some tachycardia. CARDIOVASCULAR: S1, S2. Slightly tachy. LUNGS: Wheezes x4. HEMATOLOGY: Negative Homans. PSYCH: She answers questions appropriately. She has some slurring of her speech, but she is answering things like she normally does in my opinion, but her personality is definitely changed. She has a more pleasant affect compared to before. LUNGS: Scattered wheeze x4. HEMATOLOGY: 2+ pedal edema. GI: Soft, distended, obesity. LUNGS: Transmitted upper airway sounds. ASSESSMENT: 1. Chronic renal disease stage III. 2. Urinary tract infection. 3. Slurred speech, unclear etiology. 4. Tachycardia, possibly rule out atrial fibrillation. PLAN: We will do a CT scan of the brain with contrast. Await for neurology's opinion and psychiatric opinion as mentioned above for altered mental status and slurred speech. Continue with Levaquin for antibiotic. MMODL / IJN: [id number] /
--- NOTE | 2018-02-25 11:33 | CT ---
EXAMINATION TYPE: CT brain wo con DATE OF EXAM: 02/25/2018 COMPARISON: 02/05/2018 HISTORY: AMS CT DLP: 994.7 mGycm Automated exposure control for dose reduction was used. FINDINGS: Abnormal soft tissue attenuation is noted within the paranasal sinuses and within the nasal airway. C hronic deformity of the right maxillary sinus. Abnormal attenuation the sphenoid sinus. Findings are suggestive of sinusitis. Previous surgery involving the right orbit. There is an area of abnormal attenuation within the left temporal lobe which appears more well-defined on today's exam. Extends into the left parietal lobe. F indings are suspicious for acute or subacute ischemia. Generalized degenerative changes seen and there is nonspecific periventricular low attenuation most t ypical remote microvascular ischemia. Previous changes of right mastoidectomy noted. Intracranial ath erosclerotic changes noted. IMPRESSION: 1. FINDINGS SUGGESTIVE OF A ACUTE TO SUBACUTE AREA OF ISCHEMIA INVOLVING THE LEFT TEMPORAL AND PARIE MICKEY LOBE. MRI RECOMMENDED TO EXCLUDE OTHER ETIOLOGIES INCLUDING NEOPLASM GIVEN THE EDEMA PATTERN. REP ORT CALLED TO THE PATIENT'S NURSE WITH RECOMMENDATION OF STAT MRI. 2. NO MIDLINE SHIFT OR 3 DEGENERATIVE AND NONSPECIFIC WHITE MATTER CHANGES MOST TYPICAL REMOTE ISCHEM IA. 3. CHANGES OF HANDS SINUSITIS.
[2018-02-25] MEDS: amLODIPine 5 MG TAB PO SCH (12:33)
[2018-02-25] MEDS: ALLOPURINOL 100 MG TAB PO SCH (12:33)
[2018-02-25] MEDS: FERROUS SULFATE 325 MG TAB PO SCH ×2 (12:33→18:00)
[2018-02-25] MEDS: FAMOTIDINE 20 MG TAB PO SCH ×2 (12:33→17:59)
[2018-02-25] MEDS: APIXABAN 2.5 MG TABLET PO SCH ×2 (12:33→22:00)
[2018-02-25] MEDS: LOSARTAN 50 MG TAB PO SCH (12:34)
[2018-02-25] MEDS: FLUTICASONE 50MCG/SPRAY NASAL 16GM EA NOSTRIL SCH ×2 (12:34→22:00)
[2018-02-25] MEDS: POTASSIUM CHLORIDE ER 20 MEQ TAB.ER PO SCH ×2 (12:34→18:00)
[2018-02-25] MEDS: LORATADINE 10 MG TAB PO SCH (12:34)
[2018-02-25] MEDS: SENNOSIDES-DOCUSATE SODIUM 1 EACH TAB PO SCH ×2 (12:34→22:00)
--- NOTE | 2018-02-25 14:19 | P.CRDCN ---
History of Present Illness History of present illness: Mrs. 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 We have been asked to see her in consultation for tachycardia. She was sent into the hospital per her PCP for altered mental status, slurred speech and personality changes. She is confused and a poor historian. All information is obtained from the chart and nursing staff. She lives at an [facility] and apparently suffered a fall with a head injury 2- 3 weeks ago and per the family has been behaving abnormally ever since. CT of the brain on admission and the case findings suggestive of an acute to subacute area of ischemia involving the left temporal parietal lobe. MRI recommended to exclude other etiologies such as neoplasm. There is no evidence of midline shift. Heart rate on admission was 117-145. There is no EKG or telemetry tracings to indicate the rhythm. EKG has been obtained per our request this morning which indicates atrial fibrillation with controlled ventricular response. She is seen and examined resting comfortably flat in bed in no acute distress oxygenating on room air. Per nursing staff she is refusing meds intermittently and not responding to questions appropriately. Laboratory data reviewed, hemoglobin 10.3, platelets 160, sodium 135, potassium 5.1, creatinine 2.01, AST 55, ALT 70, TSH 3.02, and he proBNP 8180, alkaline phosphatase 149. Current cardiac medications include Eliquis 2.5 mg twice a day, atorvastatin 10 mg daily, diltiazem 60 mg 3 times a day, losartan 100 mg daily, Lopressor 50 mg twice a day, amlodipine 5 mg daily and Diamox 250 mg Tuesdays at 9 AM. Echocardiogram obtained on previous admission earlier this month reveals preserved left ventricular systolic function with ejection fraction 50-55%, moderately dilated left atrium, mild to moderate pulmonary hypertension with an RVSP of 45.84 mmHg and mild to moderate TR. Review of Systems ROS unobtainable: due to mental status Past Medical History Past Medical History: Heart Failure, COPD, Dementia, GERD/Reflux, Hyperlipidemia , Hypertension, Pneumonia, Renal Disease, Respiratory Disorder, Thyroid Disorder Additional Past Medical History / Comment(s): Pt was born with cleft palate and other physical problems with facial structures including nasal passages and ear canals(has metal ) and festus at bedside states that the ear canals are collapsing. 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 Last Myocardial Infarction Date:: unknown History of Any Multi-Drug Resistant Organisms: ESBL Date of last positivie culture/infection: 02/21/18 MDRO Source:: ESBL URINE Past Surgical History: Bladder Surgery, Hysterectomy, Joint Replacement, Orthopedic Surgery Additional Past Surgical History / Comment(s): Pt has had multiple surgeries for defects affecting mouth, nose and ears, total L knee arthroplasty, bladder sling, fistula L arm.PARTIAL HYSTERECTOMY, PICC LINE-SINCE REMOVED Past Anesthesia/Blood Transfusion Reactions: No Reported Reaction Smoking Status: Former smoker - Past Family History Father Family Medical History: Cancer Additional Family Medical History / Comment(s): Father prior to age 60 yrs with esophageal cancer. He was a smoker and a drinker. Mother Family Medical History: Osteoarthritis (OA), Renal Disease, Rheumatoid Arthritis (RA) Additional Family Medical History / Comment(s): kidney problems, specific type unknown Medications and Allergies Home Medications Medication Instructions Recorded Confirmed Type Fluticasone Nasal [place] [Flonase 1 spray EA NOSTRIL BID@02/16/17 02/24/18 History Nasal [place]] Levothyroxine Sodium [Synthroid] 25 mcg PO DAILY@0600 02/16/17 02/24/18 History Acetaminophen Tab [Tylenol] 650 mg PO Q6HR PRN tab 02/20/17 02/24/18 Rx ALPRAZolam [Xanax] 0.25 mg PO HS@209904/12/17 02/24/18 History Atorvastatin [Lipitor] 10 mg PO HS@2100 04/12/17 02/24/18 History Buprenorphine [Butrans 10 MCG/HOUR] 1 patch TRANSDERM TU@0600 04/12/17 02/24/18 History Ergocalciferol (Vitamin D2) 50,000 unit PO Q30D 04/12/17 02/24/18 History [Vitamin D2] Loratadine [Claritin] 10 mg PO DAILY@0900 04/12/17 02/24/18 History Potassium Chloride [Klor-Con 20] 20 meq PO BID@0900,1700 04/12/17 02/24/18 History Ranitidine HCl [Zantac] 150 mg PO BID@0900,1700 04/12/17 02/24/18 History guaiFENesin [guaiFENesin Oral 200 mg PO Q4HR PRN 04/12/17 02/24/18 History Solution] prednisoLONE ACETATE [Pred Forte 2 drop BOTH EYES HS@209904/12/17 02/24/18 History 1%] Magnesium Hydroxide [Milk of 2,400 mg PO DAILY PRN ml 04/15/17 02/24/18 Rx Magnesia Concentrate] Ferrous Sulfate [Feosol] 325 mg PO BID@0900,1700 09/30/17 02/24/18 History Latanoprost [Xalatan 0.005%] 1 drop LEFT EYE HS@209909/30/17 02/24/18 History Melatonin 3 mg PO HS@209909/30/17 02/24/18 History Vit C/E/Zn/Coppr/Lutein/Zeaxan 1 cap PO BID@09/30/17 02/24/18 History [Preservision Areds 2 Softgel] acetaZOLAMIDE [Diamox] 250 mg PO TU@89909/30/17 02/24/18 History HYDROcodone/APAP 5-325MG [[place] 1 tab PO Q8H PRN 02/05/18 02/24/18 History 5-325] Allopurinol [Zyloprim] 200 mg PO DAILY@89902/24/18 02/24/18 History Apixaban [Eliquis] 2.5 mg PO BID@02/24/18 02/24/18 History Cinacalcet [Sensipar] 30 mg PO DAILY@59902/24/18 02/24/18 History Diltiazem Oral [Cardizem*] 60 mg PO TID@,,02/24/18 02/24/18 History Ipratropium-Albuterol Nebulize 3 ml INHALATION RT-BID@02/24/18 02/24/18 History [Duoneb 0.5 mg-3 mg/3 ml Soln] Ipratropium-Albuterol Nebulize 3 ml INHALATION RT-Q6H PRN 02/24/18 02/24/18 History [Duoneb 0.5 mg-3 mg/3 ml Soln] Levofloxacin [Levaquin] 500 mg PO HS@2100 02/24/18 02/24/18 History Losartan Potassium 100 mg PO DAILY@89902/24/18 02/24/18 History Metoprolol Tartrate [Lopressor] 50 mg PO BID@02/24/18 02/24/18 History Sennosides-Docusate Sodium 1 tab PO BID@02/24/18 02/24/18 History [Senokot-S] amLODIPine [Norvasc] 5 mg PO DAILY@89902/24/18 02/24/18 History Allergies Allergy/AdvReac Type Severity Reaction Status Date / Time No Known Allergies Allergy Verified 02/24/18 17:36 Physical Exam Vitals: Vital Signs Temp Pulse Resp BP Pulse Ox 02/25/18 12:41 96.7 F L 80 15 124/75 94 L 02/25/18 05:00 99.5 F 145 H 17 152/110 93 L 02/25/18 00:00 17 02/24/18 21:38 97 F L 142 H 17 121/84 92 L Intake and Output 02/24/18 02/25/18 02/25/18 22:59 06:59 14:59 Intake Total 240 Balance 240 Intake: Oral 240 Other: Voiding Method Diaper Incontinent # Voids 1 1 Weight 79 kg Blood pressure 124/75 heart rate 88 afebrile maintaining oxygen saturation on room air GENERAL: This is a 82-year-old female in no apparent distress at the time of my examination. HEENT: Head is atraumatic, normocephalic. Sclerae anicteric. Right eyelid droop. Conjunctivae are clear. Mucous membranes of the mouth are moist. Neck is supple. There is no jugular venous distention. No carotid bruit is heard. LUNGS: Bibasilar rales and rhonchi noted. No wheezes. No chest wall tenderness is noted on palpation or with deep breathing. HEART: Irregular rate and rhythm without murmurs, rubs or gallops. S1 and S2 heard. ABDOMEN: Soft, nontender. Bowel sounds are heard. No organomegaly noted. EXTREMITIES: No evidence of peripheral edema and no calf tenderness noted. VASCULAR: Radial and dorsalis pedis pulses palpated, no evidence of clubbing. NEUROLOGIC: Patient is awake, alert and disoriented. Results 02/25/18 07:19 02/25/18 07:19 Cardiac Enzymes 02/25/18 Range/Units 07:19 AST 55 H (14-36) U/L CBC 02/25/18 Range/Units 07:19 WBC 7.5 (3.8-10.6) k/uL RBC 3.87 (3.80-5.40) m/uL Hgb 10.3 L (11.4-16.0) gm/dL Hct 33.1 L (34.0-46.0) % Plt Count 160 (150-450) k/uL Comprehensive Metabolic Panel 02/25/18 Range/Units 07:19 Sodium 135 L (137-145) mmol/L Potassium 5.1 (3.5-5.1) mmol/L Chloride 108 H (98-107) mmol/L Carbon Dioxide 19 L (22-30) mmol/L BUN 39 H (7-17) mg/dL Creatinine 2.01 H (0.52-1.04) mg/dL Glucose 114 H (74-99) mg/dL Calcium 9.6 (8.4-10.2) mg/dL AST 55 H (14-36) U/L ALT 70 H (9-52) U/L Alkaline Phosphatase 149 H (38-126) U/L Total Protein 5.3 L (6.3-8.2) g/dL Albumin 2.7 L (3.5-5.0) g/dL Current Medications Generic Name Dose Route Start Last Admin Trade Name Freq PRN Reason Stop Dose Admin Acetaminophen 650 mg 02/24/18 23:29 Tylenol Tab PO Q6HR PRN Mild Pain or Fever > 100.5 Hydrocodone Bitart/Acetaminophen 1 each 02/24/18 23:29 [place] 5-325 PO Q8H PRN Pain Acetazolamide 250 mg 02/25/18 09:00 02/25/18 12:33 Diamox PO 250 mg TU@0900 DEEPTI Administration Albuterol/Ipratropium 3 ml 02/24/18 23:29 Duoneb 0.5 Mg-3 Mg/3 Ml Soln INHALATION RT-Q6H PRN COPD Allopurinol 200 mg 02/25/18 09:00 02/25/18 12:33 Zyloprim PO 200 mg DAILY@0900 [facility] Administration Alprazolam 0.25 mg 02/25/18 21:00 Xanax PO HS@2100 [facility] Amlodipine Besylate 5 mg 02/25/18 09:00 02/25/18 12:33 Norvasc PO 5 mg DAILY@09 [facility] Administration Apixaban 2.5 mg 02/25/18 09:00 02/25/18 12:33 Eliquis PO 2.5 mg BID@ [facility] Administration Atorvastatin Calcium 10 mg 02/25/18 21:00 Lipitor PO HS@2100 [facility] Cinacalcet 30 mg 02/25/18 06:00 02/25/18 05:55 Sensipar PO 30 mg DAILY@0600 [facility] Administration Diltiazem HCl 60 mg 02/25/18 06:00 02/25/18 05:55 Cardizem Oral PO 60 mg TID@,, [facility] Administration Ergocalciferol 50,000 unit 03/13/18 09:00 Vitamin D2 PO Q30D [facility] Famotidine 20 mg 02/25/18 09:00 02/25/18 12:33 Pepcid PO 20 mg BID@0900,1700 [facility] Administration Ferrous Sulfate 325 mg 02/25/18 09:00 02/25/18 12:33 Feosol PO 325 mg BID@0900,1700 [facility] Administration Fluticasone Propionate 1 spray 02/25/18 09:00 02/25/18 12:34 Flonase Nasal [place] EA NOSTRIL Not Given BID@ [facility] Guaifenesin 200 mg 02/24/18 23:29 Robitussin PO Q4HR PRN Cough Sodium Chloride 1,000 mls @ 50 mls/hr 02/25/18 08:45 Saline 0.9% IV .Q20H [facility] Latanoprost 1 drops 02/25/18 21:00 Xalatan 0.005% LEFT EYE HS@2100 [facility] Levofloxacin 500 mg 02/25/18 21:00 Levaquin PO Q48H [facility] Levothyroxine Sodium 25 mcg 02/25/18 06:00 02/25/18 05:55 Synthroid PO 25 mcg DAILY@0600 [facility] Administration Loratadine 10 mg 02/25/18 09:00 02/25/18 12:34 Claritin PO 10 mg DAILY@0900 [facility] Administration Losartan Potassium 100 mg 02/25/18 09:00 02/25/18 12:34 Cozaar PO 100 mg DAILY@0900 [facility] Administration Magnesium Hydroxide 2,400 mg 02/24/18 23:29 Milk Of Magnesia PO DAILY PRN Constipation Melatonin 3 mg 02/25/18 21:00 Melatonin PO HS@2100 [facility] Metoprolol Tartrate 50 mg 02/25/18 09:00 02/25/18 09:20 Lopressor PO 50 mg BID@ [facility] Administration Buprenorphine [ 1 patch 02/25/18 06:00 02/25/18 05:55 Butrans 10 Mcg/Hour] TRANSDERM Not Given 1 Patch TU@0600 [facility] Potassium Chloride 20 meq 02/25/18 09:00 02/25/18 12:34 K-Dur 20 PO Not Given BID@0900,1700 [facility] Prednisolone Acetate 2 drops 02/25/18 21:00 Pred Forte 1% BOTH EYES HS@2100 [facility] Senna/Docusate Sodium 1 each 02/25/18 09:00 02/25/18 12:34 Senokot-S PO 1 each BID@ [facility] Administration Intake and Output 02/24/18 02/25/18 02/25/18 22:59 06:59 14:59 Intake Total 240 Balance 240 Intake: Oral 240 Other: Voiding Method Diaper Incontinent # Voids 1 1 Weight 79 kg 02/25/18 07:19 02/25/18 07:19 Assessment and Plan Assessment: ASSESSMENT 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 Acute left tempora and parietal lobe infarct Chronic diastolic heart failure. Pulmonary hypertension Tricuspid regurgitation Hypertension Dyslipidemia COPD Dementia Hypothyroidism Chronic kidney disease, GFR 23 Stage 4 PLAN Obtain chest xray. Apply pvc monitor. Continue with cardizem and lopressor for rate control. Tachycardia may have been atrial fibrillation with rapid ventricular response, however no EKG or telemetry tracings to review. Consider adding a small dose of lasix if chest xray is indicative of fluid overload if ok with nephrology. Thank you kindly for this consultation. Nurse Practitioner note has been reviewed, I agree with a documented findings and plan of care. Patient was seen and examined.
[2018-02-25] MEDS: SODIUM CHLORIDE 0.9% 1,000 ML IV SCH (14:25)
--- NOTE | 2018-02-25 15:39 | P.HP ---
Psychiatric H&P - . H&P Date: 02/25/18 History & Physical: Allergies Allergy/AdvReac Type Severity Reaction Status Date / Time No Known Allergies Allergy Verified 02/24/18 17:36 Vital Signs Temp 96.7 F L 02/25/18 12:41 Pulse 80 02/25/18 12:41 Resp 15 02/25/18 12:41 BP 124/75 02/25/18 12:41 Pulse Ox 94 L 02/25/18 12:41 Intake & Output 02/24/18 02/25/18 02/25/18 18:59 06:59 18:59 Intake Total 240 Balance 240 Weight 79 kg Intake: Oral 240 Other: Voiding Method Diaper Incontinent # Voids 1 Laboratory Last Values WBC 7.5 k/uL (3.8-10.6) 02/25/18 07:19 RBC 3.87 m/uL (3.80-5.40) 02/25/18 07:19 Hgb 10.3 gm/dL (11.4-16.0) L 02/25/18 07:19 Hct 33.1 % (34.0-46.0) L 02/25/18 07:19 MCV 85.6 fL (80.0-100.0) 02/25/18 07:19 MCH 26.7 pg (25.0-35.0) 02/25/18 07:19 MCHC 31.2 g/dL (31.0-37.0) 02/25/18 07:19 RDW 17.2 % (11.5-15.5) H 02/25/18 07:19 Plt Count 160 k/uL (150-450) 02/25/18 07:19 Neutrophils % 86 % 02/25/18 07:19 Lymphocytes % 5 % 02/25/18 07:19 Monocytes % 6 % 02/25/18 07:19 Eosinophils % 2 % 02/25/18 07:19 Basophils % 0 % 02/25/18 07:19 Neutrophils # 6.4 k/uL (1.3-7.7) 02/25/18 07:19 Lymphocytes # 0.4 k/uL (1.0-4.8) L 02/25/18 07:19 Monocytes # 0.4 k/uL (0-1.0) 09/25/18 07:19 Eosinophils # 0.1 k/uL (0-0.7) 02/25/18 07:19 Basophils # 0.0 k/uL (0-0.2) 02/25/18 07:19 Hypochromasia Slight 02/25/18 07:19 Anisocytosis Slight 02/25/18 07:19 Sodium 135 mmol/L (137-145) L 02/25/18 07:19 Potassium 5.1 mmol/L (3.5-5.1) 02/25/18 07:19 Chloride 108 mmol/L (98-107) H 02/25/18 07:19 Carbon Dioxide 19 mmol/L (22-30) L 02/25/18 07:19 Anion Gap 8 mmol/L 02/25/18 07:19 BUN 39 mg/dL (7-17) H 02/25/18 07:19 Creatinine 2.01 mg/dL (0.52-1.04) H 02/25/18 07:19 Est GFR (CKD-EPI)AfAm 26 (>60 ml/min/1.73 sqM) 02/25/18 07:19 Est GFR (CKD-EPI)NonAf 23 (>60 ml/min/1.73 sqM) 02/25/18 07:19 Glucose 114 mg/dL (74-99) H 02/25/18 07:19 Calcium 9.6 mg/dL (8.4-10.2) 02/25/18 07:19 Total Bilirubin 0.8 mg/dL (0.2-1.3) 02/25/18 07:19 AST 55 U/L (14-36) H 02/25/18 07:19 ALT 70 U/L (9-52) H 02/25/18 07:19 Alkaline Phosphatase 149 U/L (38-126) H 02/25/18 07:19 NT-Pro-B Natriuret Pep 8180 pg/mL 02/25/18 07:19 Total Protein 5.3 g/dL (6.3-8.2) L 02/25/18 07:19 Albumin 2.7 g/dL (3.5-5.0) L 02/25/18 07:19 TSH 3.020 mIU/L (0.465-4.680) 02/25/18 07:19 Past Medical History Past Medical History: Heart Failure, COPD, Dementia, GERD/Reflux, Hyperlipidemia , Hypertension, Pneumonia, Renal Disease, Respiratory Disorder, Thyroid Disorder Additional Past Medical History / Comment(s): Pt was born with cleft palate and other physical problems with facial structures including nasal passages and ear canals(has metal ) and festus at bedside states that the ear canals are collapsing. 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 Last Myocardial Infarction Date:: unknown History of Any Multi-Drug Resistant Organisms: ESBL Date of last positivie culture/infection: 02/21/18 MDRO Source:: ESBL URINE Past Surgical History: Bladder Surgery, Hysterectomy, Joint Replacement, Orthopedic Surgery Additional Past Surgical History / Comment(s): Pt has had multiple surgeries for defects affecting mouth, nose and ears, total L knee arthroplasty, bladder sling, fistula L arm.PARTIAL HYSTERECTOMY, PICC LINE-SINCE REMOVED Past Anesthesia/Blood Transfusion Reactions: No Reported Reaction Smoking Status: Former smoker Brain CT: I evaluated the CT and reviewed report:Of particular interest is hypofronatality and middle cerebral artery dysfucntion with loss left greater than right temporal and parietal loss which would indicated acute and chronic cerebral vascular disease 02/25/18 14:54 02/25/18 14:57 Assessment and Plan (1) Major neurocognitive disorder due to another medical condition with behavioral disturbance Current Visit: Yes Status: Acute Code(s): F02.81 - DEMENTIA IN OTH DISEASES CLASSD [id number] W BEHAVIORAL DISTURB SNOMED Code(s): 647088474 (2) Altered mental status Current Visit: Yes Status: Acute Code(s): R41.82 - ALTERED MENTAL STATUS, UNSPECIFIED SNOMED Code(s): 629797686 Plan: Chief Complaint: [Consult reason is due to change in personality after closed head injury] History of Present Illness: [Recent changes and personality after an 82-year- old female with slurred speech and altered mental status. She had a neurological workup a week ago which is normal but family is concerned that her personality is completely changed since she fell. She has got slurred speech at times she had never had before and they cannot understand her. They're worried about her stroke and is being evaluated for current time.] Past Psychiatric History: [None] Drug/Alcohol Abuse History: [None] Medical History: [Includes pulmonary fibrosis, diastolic congestive heart., And recently had some renal insufficiency with improved with rehydration] Allergies: [NO KNOWN DRUG ALLERGIES] Social History: [She lives at [facility]] Current Medications: see current list] Constitutional Review: [Altered mental status] Mental Status Examination - General Appearance: [appears older than stated age with an inability to understand and have to talk to her her ears and close distance] Speech/Language: [Garbled words salad and soft, disconnected auditory and motor cortex] Attitude/Behavior: [withdrawn, indifferent, other] Mood: [Unable to answer] Affect: [ blunted constricted, other] Orientation: [Sponsor to person, not place situation] Thought Content: [Unable to answer] Risk Factors: [Unable to answer] Perception: [Unable to answer] Thought Processes: [ concrete, circumstantial, tangential,] Concentration/Attention Span: [Severely impaired] [Per observation and interview with the patient] Recent Memory: Severely impaired] [ out of 3 in 3 minutes] Remote Memory: [wnl, impaired] [past events, as related history] Intelligence: [below average] [based on history, based on vocabulary, syntax, grammar, and content] Judgement: [poor] [per patient's behavior/history of present illness] Insight: [poor [understanding severity of illness/history of present illness] Admitting Diagnosis: [Dementia and neurocognitive disorder] Initial Plan of Care: [Psychiatric impression neurocognitive disorder] Prognosis: guarded] Psychiatric recommendations: Continue current medical workup and no need of further psychiatric care Ricki Taylor DO PhD and psychiatrist at [facility] unit and professor of english [facility]
--- NOTE | 2018-02-25 20:18 | XR ---
EXAMINATION: XR chest 2V DATE AND TIME: 02/25/2018 7:28 PM CLINICAL INDICATION: elevated proBNP TECHNIQUE: AP and lateral COMPARISON: 02/06/2018 FINDINGS: There is marked obscuration of the pulmonary vasculature by a fine reticular pattern of increased den sity region periphery of septal lines, along with a few scattered small areas of focal airspace space filling process. Findings are consistent with advanced interstitial phase and alveolar phase pulmona ry edema, presumably cardiogenic etiology due to the moderate marked cardiac silhouette enlargement. Pleural spaces are unremarkable. No definite acute skeletal or soft tissue findings. IMPRESSION: MARKED PULMONARY EDEMA.
[2018-02-25] MEDS ORDERED: ATORVASTATIN 10 MG TAB PO SCH (21:00)
[2018-02-25] MEDS ORDERED: LEVOFLOXACIN 500 MG TAB PO SCH (21:00)
[2018-02-25] MEDS: ALPRAZolam 0.25 MG TAB PO SCH (22:00)
[2018-02-25] MEDS: MELATONIN 3 MG TABLET PO SCH (22:00)
[2018-02-25] MEDS: prednisoLONE ACETATE 1% OPHTH DROPS 5 ML BTL BOTH EYES SCH (22:01)
[2018-02-25] MEDS: LATANOPROST 0.005% OPHTH DROPS 2.5 ML BTL LEFT EYE SCH (22:02)
--- NOTE | 2018-02-25 22:59 | CONS ---
CONSULTATION DATE OF CONSULTATION: 02/25/2018. CHIEF COMPLAINT: Stroke. HISTORY OF PRESENT ILLNESS: Mrs. Sawyer is a pleasant 82-year-old female, who is being evaluated by the neurology service per the request of Dr. Pablo Dooley for a stroke. The patient was brought into [facility] Emergency Room after her family noticed that she was slurring her speech and not making sense when she is talking. It is unclear when the symptoms began and the patient is a poor historian. According to the chart, the patient had a fall approximately 2 weeks ago and had a head injury with a concussion. She was worked up at that time and was discharged. Soon after that, the above- mentioned symptoms began. In the emergency room, a CT scan of the brain was done, which showed evidence of an acute versus subacute ischemic stroke involving the left temporoparietal region. Her CBC showed anemia with a hemoglobin of 10.3 and hematocrit of 31%. Her comprehensive metabolic profile showed mild hyponatremia at 135, renal insufficiency with a BUN of 39 and creatinine of 2.01, and elevated liver enzymes with an AST of 55 and ALT of 70. At the time of my evaluation, the patient is lying in her bed and appears to be in no acute distress. She denies any actual neurological complaints but appears to be having significant receptive aphasia. PAST MEDICAL HISTORY: Pulmonary fibrosis, congestive heart failure, previous history of renal insufficiency, dementia, gastroesophageal reflux disease, dyslipidemia, hypertension, hypothyroidism, chronic obstructive pulmonary disease, history of bladder surgery, hysterectomy, joint replacement surgery. SOCIAL HISTORY: The patient is a former smoker. There is no history of any alcohol or drug use. FAMILY HISTORY: Unknown. HOME MEDICATIONS: Reviewed in the chart. ALLERGIES: No known drug allergies. REVIEW OF SYSTEMS: Unable to obtain due to receptive aphasia. PHYSICAL EXAM: Vital signs show a temperature of 96.7, pulse 80, respiration 15, blood pressure 124/75. GENERAL APPEARANCE: The patient is a well-developed, elderly female who appears to be in no acute distress. HEENT: Normocephalic, atraumatic, no obvious facial drooping is seen. NECK: Supple with no masses felt. CARDIOVASCULAR: Regular rate and rhythm. ABDOMEN: Nontender, nondistended. Extremities showed trace edema with no clubbing seen. Neurological exam: The patient is awake and oriented to person. She appears to be having significant receptive aphasia. Speech is mildly dysarthric. She does move all 4 extremities spontaneously with no obvious lateralizing weakness seen. Sensory exam appears to be normal to light touch in all 4 extremities. No obvious facial asymmetry is seen on cranial nerve testing. IMPRESSION: 1. Acute ischemic stroke, left temporoparietal region. 2. Receptive aphasia/Wernicke aphasia. 3. Dysarthria. 4. Renal insufficiency. 5. Hepatic insufficiency. 6. Anemia. RECOMMENDATION: The patient does appear to have suffered an acute ischemic stroke as mentioned above. She does have significant receptive aphasia and mild dysarthria on my examination. Continue Eliquis for anticoagulation therapy. Continue IV hydration as tolerated. I will order a carotid Doppler, EEG, fasting lipid panel, and serum homocystine level. I will consult speech therapy to evaluate and treat. Continue GI prophylaxis and DVT prophylaxis. Continue neuro checks. I will continue to follow with you. Further recommendations to follow. Thank you, Dr. Dooley, for allowing me to participate in the care of your patient. If you have any questions, please feel free to contact me. Please send a copy of this dictation to Dr. Pablo Dooley and to my office. MMODL / IJN: [id number] /
[2018-02-26] MEDS: SODIUM CHLORIDE 0.9% 1,000 ML IV SCH (04:12)
[2018-02-26] MEDS: LEVOTHYROXINE 25 MCG TAB PO SCH (06:03)
[2018-02-26] MEDS: CINACALCET 30 MG TAB PO SCH (06:03)
[2018-02-26] MEDS: DILTIAZEM ORAL 60 MG TAB PO SCH ×2 (06:04→22:07)
[2018-02-26 08:26] LABS: Albumin 2.6 g/dL (3.5-5.0); Calcium 9.3 mg/dL (8.4-10.2); Potassium 5.1 mmol/L (3.5-5.1); Total Bilirubin 0.6 mg/dL (0.2-1.3); Total Protein 5.2 g/dL (6.3-8.2)
[2018-02-26 08:31] LABS: Anisocytosis Slight; Basophils % (A) 0 %; Eosinophils # (A) 0.3 k/uL (0-0.7); Eosinophils % (A) 5 %; HCT 35.4 % (34.0-46.0); HGB 10.5 gm/dL (11.4-16.0); Hypochromasia Marked; Lymphocytes # (A) 0.5 k/uL (1.0-4.8); Lymphocytes % (A) 7 %; MCH 26.8 pg (25.0-35.0); MCHC 29.6 g/dL (31.0-37.0); MCV 90.5 fL (80.0-100.0); Mean Platelet Volume 7.2; Monocytes # (A) 0.4 k/uL (0-1.0); Monocytes % (A) 6 %; Neutrophils # (A) 5.6 k/uL (1.3-7.7); Neutrophils % (A) 81 %; Platelet Count 205 k/uL (150-450); RBC 3.91 m/uL (3.80-5.40); RDW 17.4 % (11.5-15.5); WBC 6.9 k/uL (3.8-10.6)
[2018-02-26] MEDS: LOSARTAN 50 MG TAB PO SCH (08:40)
[2018-02-26] MEDS: METOPROLOL TARTRATE 50 MG TAB PO SCH ×2 (08:40→22:06)
[2018-02-26] MEDS: amLODIPine 5 MG TAB PO SCH (08:40)
[2018-02-26] MEDS: POTASSIUM CHLORIDE ER 20 MEQ TAB.ER PO SCH ×3 (08:40→16:41)
[2018-02-26] MEDS: APIXABAN 2.5 MG TABLET PO SCH ×2 (08:40→22:05)
[2018-02-26] MEDS ORDERED: FUROSEMIDE 10 MG/ML 4 ML VIAL IV STA (10:07)
--- NOTE | 2018-02-26 10:28 | US ---
EXAMINATION TYPE: US carotid duplex RT DATE OF EXAM: 02/26/2018 COMPARISON: Previous exam 02/07/2018 CLINICAL HISTORY: CVA. Hx of stroke x 1 week ago. Poor historian Limited/Suboptimal exam due to patient unable to be still and not talk. During exam, patient jose me combative and had to stop. Only partial right CCA was performed due to the above. EXAM MEASUREMENTS: RIGHT: Peak Systolic Velocity (PSV) cm/sec ----- Right CCA: 80.1 ----- Right ICA: 129.1 ----- Right ECA: Not performed ICA/CCA ratio: 1.6 RIGHT: End Diastole cm/sec ----- Right CCA: 21.9 ----- Right ICA: 20.8 ----- Right ECA: Not performed VERTEBRALS (direction of flow): Right Vertebral not performed Rhythm: Arrhythmia Plaque seen in right bulb. No wall thickening and significant stenosis seen in right CCA. Slightly e levated proximal right ICA. IMPRESSION: Limited exam. Cardiac arrhythmia noted.
--- NOTE | 2018-02-26 11:28 | P.NPCON ---
History of Present Illness - Reason for Consult acute renal failure, chronic renal failure - History of Present Illness reason for consultation: Acute kidney injury on chronic kidney disease History of present illness: Patient is a 82-year-old female seen in renal consultation for acute kidney injury on chronic kidney disease. Patient has chronic kidney disease stage III with baseline creatinine near 2. Creatinine was 2.01 on admission and is up to 2.22 today. Patient presented to the hospital with altered mental status and slurring of speech. CAT scan of the brain is suggestive of acute ischemia in the left temporal and parietal lobe. Neurology is following. She also has history of diastolic CHF with moderate to severe tricuspid regurgitation and mild to moderate pulmonary hypertension. Chest x-ray suggestive of pulmonary edema. Patient's currently resting in bed. Denies chest pain or shortness of breath. No vomiting or diarrhea. Oral intake is poor. No hematuria or dysuria. Hemodynamically stable. Vital signs are stable. General: The patient appeared well nourished and normally developed. HEENT: Head exam is unremarkable. Neck is without jugular venous distension. LUNGS: Breath sounds decreased. HEART: Rate and Rhythm are regular. First and second heart sounds normal. No murmurs, rubs or gallops. ABDOMEN: Abdominal exam reveals normal bowel sounds. Non-tender and non- distended. No evidence of peritonitis. EXTREMITITES: No clubbing, cyanosis, or edema. Past Medical History Past Medical History: Heart Failure, COPD, Dementia, GERD/Reflux, Hyperlipidemia , Hypertension, Pneumonia, Renal Disease, Respiratory Disorder, Thyroid Disorder Additional Past Medical History / Comment(s): Pt was born with cleft palate and other physical problems with facial structures including nasal passages and ear canals(has metal ) and festus at bedside states that the ear canals are collapsing. 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 Last Myocardial Infarction Date:: unknown History of Any Multi-Drug Resistant Organisms: ESBL Date of last positivie culture/infection: 02/21/18 MDRO Source:: ESBL URINE Past Surgical History: Bladder Surgery, Hysterectomy, Joint Replacement, Orthopedic Surgery Additional Past Surgical History / Comment(s): Pt has had multiple surgeries for defects affecting mouth, nose and ears, total L knee arthroplasty, bladder sling, fistula L arm.PARTIAL HYSTERECTOMY, PICC LINE-SINCE REMOVED Past Anesthesia/Blood Transfusion Reactions: No Reported Reaction Smoking Status: Former smoker - Past Family History Father Family Medical History: Cancer Additional Family Medical History / Comment(s): Father prior to age 60 yrs with esophageal cancer. He was a smoker and a drinker. Mother Family Medical History: Osteoarthritis (OA), Renal Disease, Rheumatoid Arthritis (RA) Additional Family Medical History / Comment(s): kidney problems, specific type unknown Medications and Allergies Home Medications Medication Instructions Recorded Confirmed Type RX: Fluticasone Nasal [place] 1 spray EA NOSTRIL BID@02/16/17 02/24/18 History [Flonase Nasal [place]] RX: Levothyroxine Sodium 25 mcg PO DAILY@0600 02/16/17 02/24/18 History [Synthroid] RX: Acetaminophen Tab [Tylenol] 650 mg PO Q6HR PRN tab 02/20/17 02/24/18 Rx RX: ALPRAZolam [Xanax] 0.25 mg PO HS@2100 04/12/17 02/24/18 History RX: Atorvastatin [Lipitor] 10 mg PO HS@2100 04/12/17 02/24/18 History RX: Buprenorphine [Butrans 10 1 patch TRANSDERM TU@0600 04/12/17 02/24/18 History MCG/HOUR] RX: Ergocalciferol (Vitamin D2) 50,000 unit PO Q30D 04/12/17 02/24/18 History [Vitamin D2] RX: Loratadine [Claritin] 10 mg PO DAILY@0900 04/12/17 02/24/18 History RX: Potassium Chloride [Klor-Con 20 meq PO BID@0900,1700 04/12/17 02/24/18 History 20] RX: Ranitidine HCl [Zantac] 150 mg PO BID@0900,1700 04/12/17 02/24/18 History RX: guaiFENesin [guaiFENesin Oral 200 mg PO Q4HR PRN 04/12/17 02/24/18 History Solution] RX: prednisoLONE ACETATE [Pred 2 drop BOTH EYES HS@209904/12/17 02/24/18 History Forte 1%] RX: Magnesium Hydroxide [Milk of 2,400 mg PO DAILY PRN ml 04/15/17 02/24/18 Rx Magnesia Concentrate] RX: Ferrous Sulfate [Feosol] 325 mg PO BID@0900,1700 09/30/17 02/24/18 History RX: Latanoprost [Xalatan 0.005%] 1 drop LEFT EYE HS@209909/30/17 02/24/18 History RX: Melatonin 3 mg PO HS@209909/30/17 02/24/18 History RX: Vit C/E/Zn/Coppr/Lutein/Zeaxan 1 cap PO BID@09/30/17 02/24/18 History [Preservision Areds 2 Softgel] RX: acetaZOLAMIDE [Diamox] 250 mg PO TU@89909/30/17 02/24/18 History RX: HYDROcodone/APAP 5-325MG 1 tab PO Q8H PRN 02/05/18 02/24/18 History [[place] 5-325] Ipratropium-Albuterol Nebulize 3 ml INHALATION RT-Q6H PRN 02/24/18 02/24/18 History [Duoneb 0.5 mg-3 mg/3 ml Soln] Levofloxacin [Levaquin] 500 mg PO HS@209902/24/18 02/24/18 History RX: Allopurinol [Zyloprim] 200 mg PO DAILY@89902/24/18 02/24/18 History RX: Apixaban [Eliquis] 2.5 mg PO BID@02/24/18 02/24/18 History RX: Cinacalcet [Sensipar] 30 mg PO DAILY@59902/24/18 02/24/18 History RX: Diltiazem Oral [Cardizem*] 60 mg PO TID@,,02/24/18 02/24/18 History RX: Ipratropium-Albuterol Nebulize 3 ml INHALATION RT-BID@,02/24/18 History [Duoneb 0.5 mg-3 mg/3 ml Soln] RX: Losartan Potassium 100 mg PO DAILY@89902/24/18 02/24/18 History RX: Metoprolol Tartrate [Lopressor] 50 mg PO BID@,02/24/18 02/24/18 History RX: Sennosides-Docusate Sodium 1 tab PO BID@,02/24/18 02/24/18 History [Senokot-S] RX: amLODIPine [Norvasc] 5 mg PO DAILY@89902/24/18 02/24/18 History Allergies Allergy/AdvReac Type Severity Reaction Status Date / Time No Known Allergies Allergy Verified 02/24/18 17:36 Physical Exam Vitals: Vital Signs Temp Pulse Pulse Resp BP Pulse Ox 02/26/18 08:29 82 02/26/18 08:14 82 02/26/18 04:30 97.9 F 82 17 135/61 94 L 02/25/18 23:48 16 02/25/18 21:00 97.6 F 87 16 135/47 96 02/25/18 16:00 80 15 02/25/18 12:41 96.7 F L 80 15 124/75 94 L Intake and Output 02/25/18 02/26/18 02/26/18 22:59 06:59 14:59 Intake Total 240 400 Balance 240 400 Intake: Intake, IV Titration 400 Amount Sodium Chloride 0.9% 1, 400 000 ml @ 50 mls/hr IV . Q20H [facility] Rx#:[id number] Oral 240 Other: Voiding Method Diaper Diaper Incontinent Incontinent # Voids 1 1 # Bowel Movements 1 1 Results - Lab Results Most recent lab results Calcium 9.3 mg/dL (8.4-10.2) 02/26/18 07:35 02/26/18 07:35 02/26/18 07:35 Assessment and Plan Plan: assessment: 1.nonoliguric acute kidney injury secondary to ATN secondary to cardiorenal syndrome. Creatinine 2.22 today. 2. Chronic kidney disease stage IIIb/4 secondary tonephrosclerosis and cardiorenal syndrome with baseline creatinine near 2. 3. Pulmonary edema. 4. Diastolic CHF with moderate to severe tricuspid regurgitation. 5. Mild to moderate pulmonary hypertension. 6. Acute CVA. CAT scan suggestive of left temporal and parietal lobe ischemia. 7. Hypertension with chronic kidney disease. Controlled. 8. Metabolic acidosis secondary to acute kidney injury. Plan: Lasix 40 mg IV once daily. Hep-Lock IV fluids. Add oral sodium bicarbonate. Avoid nephrotoxins. Continue losartan for now as blood pressure is stable. Repeat electrolytes in the morning. Thank you for the consultation. I will continue to follow patient with you during her hospital stay.
[2018-02-26] MEDS: LORATADINE 10 MG TAB PO SCH (12:47)
[2018-02-26] MEDS: SENNOSIDES-DOCUSATE SODIUM 1 EACH TAB PO SCH ×2 (12:47→22:07)
[2018-02-26] MEDS: FLUTICASONE 50MCG/SPRAY NASAL 16GM EA NOSTRIL SCH ×2 (12:48→22:06)
[2018-02-26] MEDS: FERROUS SULFATE 325 MG TAB PO SCH ×3 (12:48→16:40)
[2018-02-26] MEDS: ALLOPURINOL 100 MG TAB PO SCH (12:48)
[2018-02-26] MEDS: SODIUM BICARBONATE TAB 650 MG TAB PO SCH ×2 (13:00→22:07)
--- NOTE | 2018-02-26 13:05 | P.PN ---
Subjective Mrs. Sawyer is seen and examined resting comfortably laying flat in bed in no respiratory distress. Chest xray obtained yesterday indicates pulmonary edema. Compared to old films looks to be consistent for her. Currently not on any diuretics secondary to renal function. One dose of IV lasix ordered this morning and nephrology consult placed for further diuretic recommendations. Renal function slightly worse today. Hemoglobin 10.5, platelets 205, sodium 137 , potassium 5.1, creatinine 2.2, GFR 20, AST 38, ALT 68, alkaline phosphatase 142. Blood pressure 122/54 heart rate 72 afebrile maintaining oxygen saturation on room air. Objective - Vital Signs Vital signs: Vital Signs Temp 97.9 F 02/26/18 04:30 Pulse 82 02/26/18 08:29 Resp 17 02/26/18 04:30 BP 135/61 02/26/18 04:30 Pulse Ox 94 L 02/26/18 04:30 Intake & Output 02/25/18 02/26/18 02/26/18 18:59 06:59 18:59 Intake Total 200 640 Balance 200 640 Intake: Intake, IV Titration 200 400 Amount Sodium Chloride 0.9% 1, 200 400 000 ml @ 50 mls/hr IV . Q20H [facility] Rx#:[id number] Oral 240 Other: Voiding Method Diaper Diaper Incontinent Incontinent # Voids 1 1 # Bowel Movements 2 1 - Exam GENERAL: Well-appearing, well-nourished and in no acute distress. NECK: Supple without JVD or thyromegaly. LUNGS: Bibasilar rales or rhonchi noted. No wheezes. Respiration equal and unlabored. HEART: Irregular rate and rhythm without murmurs, rubs or gallops. S1 and S2 heard. EXTREMITIES: Normal range of motion, no edema. No clubbing or cyanosis. Peripheral pulses intact. Dressing in place to right lower extremity. - Labs CBC & Chem 7: 02/26/18 07:35 02/26/18 07:35 Labs: Abnormal Lab Results - Last 24 Hours (Table) 02/26/18 02/26/18 Range/Units 07:35 07:35 Hgb 10.5 L (11.4-16.0) gm/dL MCHC 29.6 L (31.0-37.0) g/dL RDW 17.4 H (11.5-15.5) % Lymphocytes # 0.5 L (1.0-4.8) k/uL Chloride 110 H (98-107) mmol/L Carbon Dioxide 19 L (22-30) mmol/L BUN 41 H (7-17) mg/dL Creatinine 2.22 H (0.52-1.04) mg/dL AST 38 H (14-36) U/L ALT 68 H (9-52) U/L Alkaline Phosphatase 142 H (38-126) U/L Total Protein 5.2 L (6.3-8.2) g/dL Albumin 2.6 L (3.5-5.0) g/dL Microbiology - Last 24 Hours (Table) 02/25/18 19:50 Urine Culture - Preliminary Urine,Voided Assessment and Plan Assessment: ASSESSMENT Chronic persistent atrial fibrillation on prison anticoagulation. Acute left temporal and parietal lobe infarct Acute on chronic diastolic heart failure. Pulmonary hypertension Tricuspid regurgitation Hypertension Dyslipidemia COPD Dementia Hypothyroidism Chronic kidney disease, GFR 23 Stage 4 Elevated liver enzymes, unknown etiology. PLAN Give dose of IV Lasix 40 mg 1 now. Consult nephrology for diuretic therapy guidance secondary to acute on chronic kidney injury. Obtain daily weights and accurate intake and output. Repeat kidney function and electrolytes in the morning. Discontinue atorvastatin secondary to elevated liver enzymes. We will continue to follow. Nurse Practitioner note has been reviewed, I agree with a documented findings and plan of care. Patient was seen and examined.
[2018-02-26] MEDS ORDERED: SERTRALINE 25 MG TAB PO PRN (15:19)
--- NOTE | 2018-02-26 21:19 | P.PN ---
Subjective Progress Note Date: 02/26/18 Principal diagnosis: Stroke Neurology is following in an 22-fcfr-czo-year-old female for stroke. Patient was brought to the emergency room when the family noticed she was slurring her speech and her speech was not making sense. It was unclear when the symptoms began the patient is a poor historian. Patient is noted to have a fall approximately 2 weeks ago and a head injury with a concussion. She was worked up at that time and discharged. Soon after the incident she began having symptoms. In the emergency room, CT of the brain was done which showed evidence of an acute versus subacute ischemic stroke involving the left tempo parietal region CBC showed anemia. CMP showed hyponatremia, renal insufficiency and elevated liver enzymes. Time of evaluation, patient was in the room, no acute distress alert, anxious and appeared visibly frustrated and at times agitated. Objective - Vital Signs Vital signs: Vital Signs Temp 96.7 F L 02/26/18 12:04 Pulse 72 02/26/18 16:00 Resp 16 02/26/18 16:00 BP 122/54 02/26/18 12:04 Pulse Ox 94 L 02/26/18 12:04 Intake & Output 02/26/18 02/26/18 02/27/18 06:59 18:59 06:59 Intake Total 640 Balance 640 Intake: Intake, IV Titration 400 Amount Sodium Chloride 0.9% 1, 400 000 ml @ 50 mls/hr IV . Q20H [facility] Rx#:[id number] Oral 240 Other: Voiding Method Diaper Diaper Incontinent Incontinent # Voids 1 1 # Bowel Movements 1 - Exam General appearance: Alert & oriented, no apparent distress. Head: Atraumatic, normocephalic, normal inspection Eyes: Well appearance, PERRLA, EOMI. Absent scleral icterus, conjunctival injection, nystagmus, periorbital swelling. Ear, nose and throat: Normal exam, mucous membranes moist Neck: Normal inspection, absent tenderness, lymphadenopathy. Respiratory: No increased work of breathing Cardiovascular: Regular rate, rhythm GI/abdominal: No guarding Extremities: Moves all 4 extremities Neurological: No obvious facial asymmetry no lateralizing weakness no seizure activity noted on physical exam no pronator drift and no nystagmus. Significant receptive aphasia Each mildly dysarthric Strength is equal and symmetrical in all 4 extremities Sensation: Normal 4 Psychological: Vacillates and ranges from extremely calm to extremely frustrated with intermittent anger and frustration consistent with possible pseudobulbar affect. Psych has evaluated the patient and deemed the patients actions to be consistent with post brain injury. - Labs CBC & Chem 7: 02/26/18 07:35 02/26/18 07:35 Labs: Abnormal Lab Results - Last 24 Hours (Table) 02/26/18 02/26/18 Range/Units 07:35 07:35 Hgb 10.5 L (11.4-16.0) gm/dL MCHC 29.6 L (31.0-37.0) g/dL RDW 17.4 H (11.5-15.5) % Lymphocytes # 0.5 L (1.0-4.8) k/uL Chloride 110 H (98-107) mmol/L Carbon Dioxide 19 L (22-30) mmol/L BUN 41 H (7-17) mg/dL Creatinine 2.22 H (0.52-1.04) mg/dL AST 38 H (14-36) U/L ALT 68 H (9-52) U/L Alkaline Phosphatase 142 H (38-126) U/L Total Protein 5.2 L (6.3-8.2) g/dL Albumin 2.6 L (3.5-5.0) g/dL Microbiology - Last 24 Hours (Table) 02/25/18 19:50 Urine Culture - Preliminary Urine,Voided Assessment and Plan (1) Acute ischemic stroke Current Visit: Yes Status: Acute Code(s): I63.9 - CEREBRAL INFARCTION, UNSPECIFIED SNOMED Code(s): 376352299 (2) Receptive aphasia Current Visit: Yes Status: Acute Code(s): R47.01 - APHASIA SNOMED Code(s) : 920213269 (3) Dysarthria Current Visit: Yes Status: Acute Code(s): R47.1 - DYSARTHRIA AND ANARTHRIA SNOMED Code(s): 5176429 (4) PBA (pseudobulbar affect) Current Visit: Yes Status: Acute Code(s): F48.2 - PSEUDOBULBAR AFFECT SNOMED Code(s): 20036783 Plan: Patient does appear to have experienced a documented ischemic stroke with significant Aphasia. Continue antiplatelet therapy, continue antihyperlipidemic therapy. Based on psychiatric consultation note, patient does also appear to have symptoms consistent with possible pseudobulbar affect secondary to brain injury related to head trauma approximately 2 weeks ago. Hospital pharmacy does not carry on formulary Nudexta. Pharmacy recommends substituting with Zoloft 12.5 mg daily for patient's symptoms. Order placed in patient's chart if needed should symptoms increase. Nursing expressed concern related to patient's significant mood swings and agitation throughout the day prior to rounding. Review of CT brain noted recommendation for MRI brain, requested MRI brain to further investigate imaging findings. MRI with and without contrast ordered. Further recommendations based on the results of the MRI. Neurology to be notified with any neurological status changes. Status: Neurology will continue to follow and provide update as needed or warranted. I have discussed the plan of care with the physician prior to implementation and he agrees with the plan as implemented.
[2018-02-26] MEDS: ALPRAZolam 0.25 MG TAB PO SCH (22:05)
[2018-02-26] MEDS: MELATONIN 3 MG TABLET PO SCH (22:05)
[2018-02-26] MEDS: prednisoLONE ACETATE 1% OPHTH DROPS 5 ML BTL BOTH EYES SCH (22:06)
[2018-02-26] MEDS: LATANOPROST 0.005% OPHTH DROPS 2.5 ML BTL LEFT EYE SCH (22:06)
[2018-02-26] MEDS: FAMOTIDINE 20 MG TAB PO SCH (23:03)
[2018-02-27] MEDS: LEVOTHYROXINE 25 MCG TAB PO SCH (05:42)
[2018-02-27] MEDS: CINACALCET 30 MG TAB PO SCH (05:42)
[2018-02-27] MEDS: DILTIAZEM ORAL 60 MG TAB PO SCH ×3 (05:43→21:04)
[2018-02-27] MEDS ORDERED: LORazepam 2 MG/ML INJ IV ONE (07:00)
[2018-02-27 08:10] LABS: Calcium 9.2 mg/dL (8.4-10.2); Phosphorus 3.6 mg/dL (2.5-4.5)
[2018-02-27] MEDS: METOPROLOL TARTRATE 50 MG TAB PO SCH ×2 (08:50→20:47)
[2018-02-27] MEDS: LORATADINE 10 MG TAB PO SCH (08:50)
[2018-02-27] MEDS: FAMOTIDINE 20 MG TAB PO SCH (08:50)
[2018-02-27] MEDS: LOSARTAN 50 MG TAB PO SCH (08:50)
[2018-02-27] MEDS: ALLOPURINOL 100 MG TAB PO SCH (08:50)
[2018-02-27] MEDS: FERROUS SULFATE 325 MG TAB PO SCH ×2 (08:50→16:59)
[2018-02-27] MEDS: amLODIPine 5 MG TAB PO SCH (08:51)
[2018-02-27] MEDS: POTASSIUM CHLORIDE ER 20 MEQ TAB.ER PO SCH (08:51)
[2018-02-27] MEDS: SODIUM BICARBONATE TAB 650 MG TAB PO SCH ×2 (08:51→20:47)
[2018-02-27] MEDS: FUROSEMIDE 10 MG/ML 4 ML VIAL IV SCH (08:51)
[2018-02-27] MEDS: FLUTICASONE 50MCG/SPRAY NASAL 16GM EA NOSTRIL SCH ×2 (08:51→20:47)
[2018-02-27] MEDS: APIXABAN 2.5 MG TABLET PO SCH ×2 (08:51→20:46)
[2018-02-27] MEDS: SENNOSIDES-DOCUSATE SODIUM 1 EACH TAB PO SCH ×2 (09:06→20:47)
--- NOTE | 2018-02-27 10:48 | P.PN ---
Subjective Patient is seen in follow-up for acute kidney injury on chronic kidney disease. Patient has chronic kidney disease stage III with baseline creatinine near 2. Creatinine up to 2.56 today. Patient appears quite congested. She is maintained on Lasix 40 mg IV once daily. Urine culture positive for gram- negative bacilli. Patient is hard of hearing. She is nonoliguric. Vital signs are stable. General: The patient appeared well nourished and normally developed. HEENT: Head exam is unremarkable. Neck is without jugular venous distension. LUNGS: Scattered wheezing. Breath sounds decreased. HEART: Rate and Rhythm are regular. First and second heart sounds normal. No murmurs, rubs or gallops. ABDOMEN: Abdominal exam reveals normal bowel sounds. Non-tender and non- distended. No evidence of peritonitis. EXTREMITITES: No clubbing, cyanosis, or edema. Objective - Vital Signs Vital signs: Vital Signs Temp 97.8 F 02/27/18 05:00 Pulse 94 02/27/18 05:00 Resp 22 02/27/18 05:00 BP 131/64 02/27/18 05:00 Pulse Ox 94 L 02/27/18 05:00 Intake & Output 02/26/18 02/27/18 02/27/18 18:59 06:59 18:59 Intake Total 120 30 Balance 120 30 Weight 70 kg Intake: Oral 120 30 Other: Voiding Method Diaper Diaper Diaper Incontinent Incontinent Incontinent # Voids 1 1 - Labs CBC & Chem 7: 02/26/18 07:35 02/27/18 07:04 Labs: Abnormal Lab Results - Last 24 Hours (Table) 02/27/18 Range/Units 07:04 Chloride 111 H (98-107) mmol/L Carbon Dioxide 19 L (22-30) mmol/L BUN 51 H (7-17) mg/dL Creatinine 2.56 H (0.52-1.04) mg/dL Glucose 108 H (74-99) mg/dL Microbiology - Last 24 Hours (Table) 02/25/18 19:50 Urine Culture - Preliminary Urine,Voided Gram Neg Bacilli Assessment and Plan Plan: assessment: 1. Nonoliguric acute kidney injury secondary to ATN secondary to cardiorenal syndrome. Creatinine 2.56 today. 2. Chronic kidney disease stage IIIb/4 secondary tonephrosclerosis and cardiorenal syndrome with baseline creatinine near 2. 3. Pulmonary edema. 4. Diastolic CHF with moderate to severe tricuspid regurgitation. 5. Mild to moderate pulmonary hypertension. 6. Acute CVA. CAT scan suggestive of left temporal and parietal lobe ischemia. MRI pending. 7. Hypertension with chronic kidney disease. Controlled. 8. Metabolic acidosis secondary to acute kidney injury. 9. UTI. Urine culture positive for gram-negative bacilli. Plan: Maintain Lasix 40 mg IV once daily. Continue oral sodium bicarbonate. Avoid nephrotoxins. Continue losartan for now as blood pressure is stable. Repeat electrolytes in the morning. Add breathing treatments every 4 hours. Check urinalysis. Add Rocephin 1 g once daily.
[2018-02-27] MEDS: IPRATROPIUM-ALBUTEROL 3 ML NEB INHALATION SCH ×5 (11:05→23:51)
--- NOTE | 2018-02-27 13:17 | P.PN ---
Subjective Mrs. Sawyer is seen and examined sleeping comfortably laying flat in bed oxygenating on room air. She denies chest pain or shortness of breath. Blood pressure 131/64 heart rate 94. Laboratory data reviewed, sodium 138, potassium 5.0, creatinine 2.56. Nephrology is managing her diuretic therapy. She continues on lasix 40 mg IV daily. Weight is documented down 9 kg with no output due to incontinence. Objective - Vital Signs Vital signs: Vital Signs Temp 97.8 F 02/27/18 05:00 Pulse 80 02/27/18 11:19 Resp 22 02/27/18 05:00 BP 131/64 02/27/18 05:00 Pulse Ox 94 L 02/27/18 05:00 Intake & Output 02/26/18 02/27/18 02/27/18 18:59 06:59 18:59 Intake Total 120 30 Balance 120 30 Weight 70 kg Intake: Oral 120 30 Other: Voiding Method Diaper Diaper Diaper Incontinent Incontinent Incontinent # Voids 1 1 - Exam GENERAL: Well-appearing, well-nourished and in no acute distress. NECK: Supple without JVD or thyromegaly. LUNGS: Faint bibasilar rales, no wheezes or rhonchi noted. Respiration equal and unlabored. HEART: Irregular rate and rhythm without murmurs, rubs or gallops. S1 and S2 heard. EXTREMITIES: Normal range of motion, no edema. No clubbing or cyanosis. Peripheral pulses intact. Dressing in place to right lower extremity. - Labs CBC & Chem 7: 02/26/18 07:35 02/27/18 07:04 Labs: Abnormal Lab Results - Last 24 Hours (Table) 02/27/18 Range/Units 07:04 Chloride 111 H (98-107) mmol/L Carbon Dioxide 19 L (22-30) mmol/L BUN 51 H (7-17) mg/dL Creatinine 2.56 H (0.52-1.04) mg/dL Glucose 108 H (74-99) mg/dL Microbiology - Last 24 Hours (Table) 02/25/18 19:50 Urine Culture - Preliminary Urine,Voided Gram Neg Bacilli Assessment and Plan Assessment: ASSESSMENT Chronic persistent atrial fibrillation on terminal carman anticoagulation. Acute left temporal and parietal lobe infarct Acute on chronic diastolic heart failure. Pulmonary hypertension Tricuspid regurgitation Hypertension Dyslipidemia COPD Dementia Hypothyroidism Chronic kidney disease, GFR 23 Stage 4 Elevated liver enzymes, unknown etiology. PLAN Continue with diuresis per nephrology. Obtain daily weights and accurate intake and output. Repeat kidney function and electrolytes in the morning. We will continue to follow. Nurse Practitioner note has been reviewed, I agree with a documented findings and plan of care. Patient was seen and examined.
--- NOTE | 2018-02-27 13:43 | PN ---
PROGRESS NOTE DATE OF SERVICE: 02/26/2018 SUBJECTIVE: An 82-year-old white female seen by neurologist, found to have an acute stroke versus subacute ischemic stroke in the left temporoparietal region. She had some anemia, hyponatremia, renal insufficiency, elevated liver enzymes. Psychiatry saw her and diagnosed receptive aphasia, acute ischemic stroke, dysarthria and pseudobulbar affect, recommended antiplatelet and antilipidemic therapy and possible pseudobulbar affect secondary to acute brain injury possibly use Nuedexta, they state if she gets back to the intermediate once stabilization from the stroke is done. Cardiology saw the patient also and their assessment was chronic persistent atrial fibrillation on long- term anticoagulation, acute left temporal and parietal infarct, acute on chronic diastolic heart failure, pulmonary hypertension, tricuspid regurgitation, dyslipidemia, hypertension, COPD, dementia, hypothyroidism, chronic kidney disease stage 4. They want to give some IV Lasix and get Nephrology involved. Nephrology saw the patient. Urine culture is negative for gram-negative bacilli. She is given Lasix 40 IV daily. Hemoglobin is 10.3. BUN is 51, creatinine 2.56, which is up from 2.0 on admission and their assessment was nonoliguric acute kidney injury secondary to ATN secondary to cardiorenal syndrome, chronic kidney disease stage 3B to 4, pulmonary edema, diastolic CHF, moderate to severe tricuspid regurgitation, mild to moderate pulmonary hypertension, acute CVA, hypertension, chronic kidney disease, metabolic acidosis, UTI. They recommend continued Lasix 40 IV daily, oral bicarbonate, continue losartan, continue with IV antibiotics for urinary tract infection, but have not changed any of her long-term medications as a significant point of this time. CARDIOVASCULAR: S1, S2. Lungs reveal scattered wheeze x4. She has a history of pulmonary fibrosis. : Nontender. HEMATOLOGIC: She has 2+ pedal edema. ASSESSMENT: Possibly untreated pseudobulbar affect, we may use Nuedexta when she gets to the intermediate. Continue current recommendations for medications. Switch her Lasix to oral in the next day or 2. Continue her Diamox, Zyloprim, her Xanax, Norvasc, Eliquis, Butrans patch, Rocephin for UTI, Sensipar for kidney function, oral Cardizem for hypertension, Pepcid, iron pills, nasal sprays, Lasix daily through the IV, probably switch to oral next day or 2. Monitor electrolytes. Continue with Rocephin until urine cultures are back. Take her off her Levaquin at this time. Continue on sodium bicarbonate 650 b.i.d. Please see further orders. MMODL / IJN: [id number] /
--- NOTE | 2018-02-27 17:23 | CT ---
EXAMINATION TYPE: CT brain wo con DATE OF EXAM: 02/27/2018 COMPARISON: 02/25/2018 INDICATION: ams, confusion DLP: 1064 mGycm, Automated exposure control for dose reduction was used. CONTRAST: None CT of the brain is performed utilizing 3 mm thick sections through the posterior fossa and 3 mm thick sections through the remaining calvarium. Study is not performed within 24 hours of arrival to the hospital. No abnormal hyperdensity is present to suggest an acute intracranial hemorrhage. There is an area of hyperdensity within the left inferior parietal lobe with surrounding hypodensity suggestive for underlying mass. MRI with contrast recommended for additional evaluation. Mass effect on the adjacent lateral ventricle is not evident. There does appear to be some local sulci effacement . No midline shift is evident. This was present previously. This may reflect some subacute ischemic change. Periventricular white matter hypodensity is present. Ventricles appear appropriate. Sulci on the right appear appropriate for the patient age. There is opacification of the maxillary sinuses. Some mild mucosal thickening within posterior right ethmoid air cells. IMPRESSIONS: 1. Findings suspicious for underlying mass left parietal lobe or subacute ischemic change. MRI with contrast is recommended for additional evaluation. This was present 02/25/2018 appear stable over the interval.
--- NOTE | 2018-02-27 20:25 | P.PN ---
Subjective Progress Note Date: 02/27/18 Principal diagnosis: Stroke Neurology is following in an [id number]-year-old female for stroke. Patient was brought to the emergency room when the family noticed she was slurring her speech and her speech was not making sense. It was unclear when the symptoms began the patient is a poor historian. Patient is noted to have a fall approximately 2 weeks ago and a head injury with a concussion. She was worked up at that time and discharged. Soon after the incident she began having symptoms. In the emergency room, CT of the brain was done which showed evidence of an acute versus subacute ischemic stroke involving the left tempo parietal region CBC showed anemia. CMP showed hyponatremia, renal insufficiency and elevated liver enzymes. Time of evaluation, patient was in the room, no acute distress alert, anxious and appeared visibly frustrated and at times agitated. Interval update 02/27/18: Neurology is continuing to follow in an 81-year-old female for possible stroke with abnormal CT finding suggestive of possible mass. patient appears much more calm today. However, patient would not actively allow provider to conduct a full physical exam. Patient was observed to be seated in bedside chair and appears to be alert. She will converse with nursing staff however will answer inappropriately as expected with patient's known Wernicke's aphasia. patient does not appear to be in any acute distress. Provider did order Zoloft 12.5 mg to be used if patient's anxiety and agitation increased yesterday in place of Nudexta or possible pseudobulbar affect but patient did not require medication to be used. MRI of the brain was previously ordered as suggested and CT brain of 02/25/18. However, radiology advises the patient does have metal fragments which make MRI contraindicated at this time. Updated CT of the brain was requested. CT brain notes "there is an area of hyperdensity within the left inferior parietal lobe with surrounding hypodensity suggestive for underlying mass." Impression notes that findings are suspicious for underlying mass in the left parietal lobe or subacute ischemic changes. It does recommend MRI which has previously noted is unable to be obtained. Imaging appears stable over the previous interval. Objective - Vital Signs Vital signs: Vital Signs Temp 97.8 F 02/27/18 05:00 Pulse 80 02/27/18 19:30 Resp 20 02/27/18 19:19 BP 131/64 02/27/18 05:00 Pulse Ox 94 L 02/27/18 05:00 Intake & Output 02/27/18 02/27/18 02/28/18 06:59 18:59 06:59 Intake Total 120 30 Balance 120 30 Intake: Oral 120 30 Other: Voiding Method Diaper Diaper Incontinent Incontinent # Voids 1 - Exam General appearance: Alert & oriented, no apparent distress. Head: Atraumatic, normocephalic, normal inspection Eyes: Well appearance, PERRLA, EOMI. Absent scleral icterus, conjunctival injection, nystagmus, periorbital swelling. Ear, nose and throat: Normal exam, mucous membranes moist Neck: Normal inspection, absent tenderness, lymphadenopathy. Respiratory: No increased work of breathing Cardiovascular: Regular rate, rhythm GI/abdominal: No guarding Extremities: Moves all 4 extremities Neurological: No obvious facial asymmetry no lateralizing weakness no seizure activity noted on physical exam no pronator drift and no nystagmus. Significant receptive aphasia Each mildly dysarthric Strength is equal and symmetrical in all 4 extremities Sensation: Normal 4 Psychological: Vacillates and ranges from extremely calm to extremely frustrated with intermittent anger and frustration consistent with possible pseudobulbar affect. Psych has evaluated the patient and deemed the patients actions to be consistent with post brain injury. - Labs CBC & Chem 7: 02/26/18 07:35 02/27/18 07:04 Labs: Abnormal Lab Results - Last 24 Hours (Table) 02/27/18 Range/Units 07:04 Chloride 111 H (98-107) mmol/L Carbon Dioxide 19 L (22-30) mmol/L BUN 51 H (7-17) mg/dL Creatinine 2.56 H (0.52-1.04) mg/dL Glucose 108 H (74-99) mg/dL Microbiology - Last 24 Hours (Table) 02/25/18 19:50 Urine Culture - Preliminary Urine,Voided Gram Neg Bacilli Assessment and Plan (1) Acute ischemic stroke Current Visit: Yes Status: Acute Code(s): I63.9 - CEREBRAL INFARCTION, UNSPECIFIED SNOMED Code(s): 187356336 (2) Receptive aphasia Current Visit: Yes Status: Acute Code(s): R47.01 - APHASIA SNOMED Code(s) : 642537282 (3) Dysarthria Current Visit: Yes Status: Acute Code(s): R47.1 - DYSARTHRIA AND ANARTHRIA SNOMED Code(s): 0514844 (4) PBA (pseudobulbar affect) Current Visit: Yes Status: Acute Code(s): F48.2 - PSEUDOBULBAR AFFECT SNOMED Code(s): 09232501 (5) Mass of left parietal lobe Current Visit: Yes Status: Acute Code(s): G93.9 - DISORDER OF BRAIN, UNSPECIFIED SNOMED Code(s): 429119847 Plan: Although the original CT brain was more suggestive for ischemic stroke with significant Aphasia, updated CT of the brain at this point is highly suspicious for mass within the left inferior parietal lobe after review by supervising physician. Recommend oncology consult at this time for further evaluation of the patient as well as imaging findings as noted. Continue antiplatelet therapy, continue antihyperlipidemic therapy. Based on psychiatric consultation note, patient does also appear to have symptoms consistent with possible pseudobulbar affect. Nursing can implement Zoloft 12.5 mg daily for patient's symptoms if necessary. Order placed in patient's chart if needed should symptoms increase. Nursing expressed concern related to patient's significant mood swings and agitation times. If the Zoloft is implemented, nursing must notify neurology at time of implementation. Neurology to be notified with any neurological status changes. Status: Neurology will continue to follow and provide update as needed or warranted. I have discussed the plan of care with the physician prior to implementation and he agrees with the plan as implemented.
[2018-02-27] MEDS: ALPRAZolam 0.25 MG TAB PO SCH (20:46)
[2018-02-27] MEDS: MELATONIN 3 MG TABLET PO SCH (20:47)
[2018-02-27] MEDS: prednisoLONE ACETATE 1% OPHTH DROPS 5 ML BTL BOTH EYES SCH (20:55)
[2018-02-27] MEDS: LATANOPROST 0.005% OPHTH DROPS 2.5 ML BTL LEFT EYE SCH (20:55)
[2018-02-27] MEDS: ERTAPENEM 0.5 GM in SODIUM CHLORIDE 0.9% 50 ML IVPB SCH (23:25)
[2018-02-28] MEDS: IPRATROPIUM-ALBUTEROL 3 ML NEB INHALATION SCH ×6 (00:04→23:35)
[2018-02-28] MEDS: CINACALCET 30 MG TAB PO SCH (05:14)
[2018-02-28] MEDS: LEVOTHYROXINE 25 MCG TAB PO SCH (05:14)
[2018-02-28] MEDS: DILTIAZEM ORAL 60 MG TAB PO SCH ×4 (05:14→22:03)
[2018-02-28 07:13] LABS: Anisocytosis Slight; Basophils % (A) 0 %; Eosinophils # (A) 0.2 k/uL (0-0.7); Eosinophils % (A) 5 %; HCT 33.2 % (34.0-46.0); HGB 10.2 gm/dL (11.4-16.0); Hypochromasia Marked; Lymphocytes # (A) 0.3 k/uL (1.0-4.8); Lymphocytes % (A) 7 %; MCHC 30.7 g/dL (31.0-37.0); Mean Platelet Volume 7.1; Monocytes # (A) 0.3 k/uL (0-1.0); Monocytes % (A) 7 %; Neutrophils # (A) 3.8 k/uL (1.3-7.7); Neutrophils % (A) 80 %; Platelet Count 232 k/uL (150-450); RBC 3.77 m/uL (3.80-5.40); RDW 17.4 % (11.5-15.5); WBC 4.8 k/uL (3.8-10.6)
[2018-02-28 07:28] LABS: Albumin 2.5 g/dL (3.5-5.0); Calcium 8.8 mg/dL (8.4-10.2); Magnesium 1.9 mg/dL (1.6-2.3); Potassium 4.5 mmol/L (3.5-5.1); Total Bilirubin 0.3 mg/dL (0.2-1.3)
[2018-02-28] MEDS: FLUTICASONE 50MCG/SPRAY NASAL 16GM EA NOSTRIL SCH ×2 (08:36→20:58)
[2018-02-28] MEDS: LOSARTAN 50 MG TAB PO SCH (08:36)
[2018-02-28] MEDS: ALLOPURINOL 100 MG TAB PO SCH (08:36)
[2018-02-28] MEDS: SODIUM BICARBONATE TAB 650 MG TAB PO SCH ×2 (08:36→20:37)
[2018-02-28] MEDS: LORATADINE 10 MG TAB PO SCH (08:37)
[2018-02-28] MEDS: FERROUS SULFATE 325 MG TAB PO SCH ×2 (08:37→17:49)
[2018-02-28] MEDS: METOPROLOL TARTRATE 50 MG TAB PO SCH ×2 (08:37→20:37)
[2018-02-28] MEDS: amLODIPine 5 MG TAB PO SCH ×2 (08:37→20:37)
[2018-02-28] MEDS: FUROSEMIDE 10 MG/ML 4 ML VIAL IV SCH (08:37)
[2018-02-28] MEDS: FAMOTIDINE 20 MG TAB PO SCH (08:37)
[2018-02-28] MEDS: APIXABAN 2.5 MG TABLET PO SCH ×2 (08:37→20:36)
[2018-02-28] MEDS: SENNOSIDES-DOCUSATE SODIUM 1 EACH TAB PO SCH ×2 (08:56→20:50)
--- NOTE | 2018-02-28 09:14 | P.PN ---
Subjective Patient is seen in follow-up for acute kidney injury on chronic kidney disease. Patient has chronic kidney disease stage III with baseline creatinine near 2. Renal function worsening the last few days with creatinine up to 2.7 today. Patient was quite congested the last few days. She is maintained on Lasix 40 mg IV once daily. Dyspnea is better today. Urine culture positive for ESBL E. coli. Patient is hard of hearing. She is nonoliguric but incontinent. Vital signs are stable. General: The patient appeared well nourished and normally developed. HEENT: Head exam is unremarkable. Neck is without jugular venous distension. LUNGS: Breath sounds decreased. HEART: Rate and Rhythm are regular. First and second heart sounds normal. No murmurs, rubs or gallops. ABDOMEN: Abdominal exam reveals normal bowel sounds. Non-tender and non- distended. No evidence of peritonitis. EXTREMITITES: No clubbing, cyanosis, or edema. Objective - Vital Signs Vital signs: Vital Signs Temp 97.5 F L 02/28/18 05:00 Pulse 84 02/28/18 08:10 Resp 15 02/28/18 05:00 BP 145/61 02/28/18 05:00 Pulse Ox 97 02/28/18 05:00 Intake & Output 02/27/18 02/28/18 02/28/18 18:59 06:59 18:59 Intake Total 30 410 Balance 30 410 Weight 79 kg Intake: Intake, IV Titration 50 Amount Ertapenem 0.5 gm In 50 Sodium Chloride 0.9% 50 ml @ 100 mls/hr IVPB Q24H [facility] Rx#:[id number] Oral 30 360 Other: Voiding Method Diaper Diaper Incontinent Incontinent # Voids 1 1 - Labs CBC & Chem 7: 02/28/18 06:44 02/28/18 06:44 Labs: Abnormal Lab Results - Last 24 Hours (Table) 02/28/18 02/28/18 Range/Units 06:44 06:44 RBC 3.77 L (3.80-5.40) m/uL Hgb 10.2 L (11.4-16.0) gm/dL Hct 33.2 L (34.0-46.0) % MCHC 30.7 L (31.0-37.0) g/dL RDW 17.4 H (11.5-15.5) % Lymphocytes # 0.3 L (1.0-4.8) k/uL Chloride 112 H (98-107) mmol/L Carbon Dioxide 19 L (22-30) mmol/L BUN 50 H (7-17) mg/dL Creatinine 2.70 H (0.52-1.04) mg/dL Glucose 122 H (74-99) mg/dL Alkaline Phosphatase 128 H (38-126) U/L Total Protein 5.0 L (6.3-8.2) g/dL Albumin 2.5 L (3.5-5.0) g/dL Microbiology - Last 24 Hours (Table) 02/25/18 19:50 Urine Culture - Final Urine,Voided Escherichia coli Assessment and Plan Plan: assessment: 1. Nonoliguric acute kidney injury secondary to ATN secondary to cardiorenal syndrome and UTI. Also on Cozaar. Creatinine up to 2.7 today. 2. Chronic kidney disease stage IIIb/4 secondary tonephrosclerosis and cardiorenal syndrome with baseline creatinine near 2. 3. Pulmonary edema maintained on IV Lasix. 4. Diastolic CHF with moderate to severe tricuspid regurgitation. 5. Mild to moderate pulmonary hypertension. 6. Acute CVA. CAT scan suggestive of left temporal and parietal lobe ischemia. Neurology following. 7. Hypertension with chronic kidney disease. Controlled. 8. Metabolic acidosis secondary to acute kidney injury. 9. UTI. Urine culture positive for ESBL E. coli. Maintained on IV antibiotics per infectious disease. Plan: I will change Lasix to 40 mg orally once daily. Discontinue Cozaar. Increase amlodipine to 5 mg twice daily. Continue oral sodium bicarbonate. Avoid nephrotoxins. Repeat electrolytes in the morning. Repeat chest x-ray.
[2018-02-28 13:57] LABS: Appearance,Urine Clear (Clear); Bacteria,Urine Rare /hpf; Bilirubin,Urine Negative (Negative); Blood,Urine Trace (Negative); Color,Urine Yellow; Glucose,Urine (UA) Negative (Negative); Ketones,Urine Negative (Negative); Leukocyte Esterase,Urine Negative (Negative); Mucus,Urine Rare /hpf; Nitrite,Urine Negative (Negative); Protein,Urine Negative (Negative); RBC,Urine 7 /hpf (0-5); Specific Gravity,Urine 1.008 (1.001-1.035); Squamous Epithelial Cell,Urine <1 /hpf (0-4); Urobilinogen,Urine <2.0 mg/dL (<2.0)
--- NOTE | 2018-02-28 14:59 | P.PN ---
Subjective Pt is seen and examined sitting up in the chair with her feet elevated on a stool watching TV. She is using oxygen and is audibly wheezing. She denies chest pain, shortness of breath, dizziness or palpitations. Blood pressure 141/ 77 heart rate 86 afebrile. Laboratory data reviewed, hgb 10.2, plt 232, sodium 139, potassium 4.5, creatinine 2.7. She has been transitioned to PO lasix per nephrology. Lower extremity edema has improved since admission. No weight documented for today and inaccurate output due to incontinence. Neurology has performed a repeat CT brain and is now concerned about a possible mass and is requesting oncology consult. Objective - Vital Signs Vital signs: Vital Signs Temp 98.1 F 02/28/18 12:04 Pulse 86 02/28/18 12:04 Resp 16 02/28/18 12:04 BP 141/77 02/28/18 12:04 Pulse Ox 98 02/28/18 12:04 Intake & Output 02/27/18 02/28/18 02/28/18 18:59 06:59 18:59 Intake Total 30 410 Balance 30 410 Weight 79 kg Intake: Intake, IV Titration 50 Amount Ertapenem 0.5 gm In 50 Sodium Chloride 0.9% 50 ml @ 100 mls/hr IVPB Q24H [facility] Rx#:[id number] Oral 30 360 Other: Voiding Method Diaper Diaper Diaper Incontinent Incontinent Incontinent # Voids 1 1 - Exam GENERAL: Well-appearing, well-nourished and in no acute distress. NECK: Supple without JVD or thyromegaly. LUNGS: Expiratory wheezes noted throughout. No rales or rhonchi. Respiration equal and unlabored. HEART: Irregular rate and rhythm without murmurs, rubs or gallops. S1 and S2 heard. EXTREMITIES: Normal range of motion, no edema. No clubbing or cyanosis. Peripheral pulses intact. Dressing in place to right lower extremity. - Labs CBC & Chem 7: 02/28/18 06:44 02/28/18 06:44 Labs: Abnormal Lab Results - Last 24 Hours (Table) 02/28/18 02/28/18 02/28/18 Range/Units 06:44 06:44 13:35 RBC 3.77 L (3.80-5.40) m/uL Hgb 10.2 L (11.4-16.0) gm/dL Hct 33.2 L (34.0-46.0) % MCHC 30.7 L (31.0-37.0) g/dL RDW 17.4 H (11.5-15.5) % Lymphocytes # 0.3 L (1.0-4.8) k/uL Chloride 112 H (98-107) mmol/L Carbon Dioxide 19 L (22-30) mmol/L BUN 50 H (7-17) mg/dL Creatinine 2.70 H (0.52-1.04) mg/dL Glucose 122 H (74-99) mg/dL Alkaline Phosphatase 128 H (38-126) U/L Total Protein 5.0 L (6.3-8.2) g/dL Albumin 2.5 L (3.5-5.0) g/dL Urine Blood Trace H (Negative) Urine RBC 7 H (0-5) /hpf Urine Bacteria Rare H (None) /hpf Urine Mucus Rare H (None) /hpf Microbiology - Last 24 Hours (Table) 02/25/18 19:50 Urine Culture - Final Urine,Voided Escherichia coli Assessment and Plan Assessment: ASSESSMENT 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 Acute left temporal and parietal lobe infarct vs mass Acute on chronic diastolic heart failure. Pulmonary hypertension Tricuspid regurgitation Hypertension Dyslipidemia COPD Dementia Hypothyroidism Chronic kidney disease, GFR 23 Stage 4 Elevated liver enzymes, unknown etiology. PLAN Stable from a cardiac perspective. Ongoing medical management of acute CVA vs mass. We will continue to follow as needed for the remainder of this hospitalization. Nurse Practitioner note has been reviewed, I agree with a documented findings and plan of care. Patient was seen and examined.
--- NOTE | 2018-02-28 20:30 | CONS ---
CONSULTATION DATE OF SERVICE: 02/28/2018. REASON FOR CONSULTATION: ESBL E coli UTI infection. HISTORY OF PRESENT ILLNESS: The patient is an 82-year-old female who has been admitted hospital 02/24/2018 for management of slurred speech and altered mental status and the patient has been evaluated by Cardiology and Neurology services. The patient was brought into the ER after the family noticed that she was having slurred speech and not making sense when she was talking though not very clear when exactly the symptoms started. The patient was evaluated in the hospital. The patient did have a CT of the brain that was suggestive of acute to subacute area of ischemia involving the left temporal and parietal lobe. The patient has been afebrile during this hospital stay and her white count has been normal. The patient did have a urine cultures obtained without any UA and those cultures were finalized last night with an ESBL E coli. I was contacted by the patient nurse after midnight for antibiotic recommendations. The patient was getting treated with Rocephin by her physicians on this admission. Rocephin was discontinued. The patient started on Invanz pending evaluation this morning. The patient was evaluated. The patient is not a very good historian and very hard of hearing but not specifically for any urinary symptoms. She would not answer yes or no, however, talking to nursing staff the patient did have a problem with incontinence of urine and is currently wearing Depends. When asked specifically the patient denies having nausea, no vomiting or any diarrhea. No chest pain, shortness of breath or cough. However, the history remains to be limited as most of the information has been from asking leading questions and review of her chart. REVIEW OF SYSTEMS: Could not be reliably obtained. The positive points have been mentioned in the HPI. PAST MEDICAL HISTORY: Significant for recurrent urinary tract infection, heart failure, COPD, dementia, gastroesophageal reflux disease, hypertension, hyperlipidemia, chronic insufficiency, hypothyroidism, pneumonia, and previous history of ESBL E coli UTI. PAST SURGICAL HISTORY: Hysterectomy, total knee arthroplasty and multiple surgeries after for defect. SOCIAL HISTORY: No history of smoking, drinking or drug use. Currently a senior living resident. FAMILY HISTORY: Father from esophageal cancer. Mother has insufficiency and rheumatoid arthritis. ALLERGIES: No known drug allergies. MEDICATION: Currently include the patient is on Zoloft, Senokot, Lopressor, melatonin, milk of magnesia, Claritin. Synthroid, Robitussin, Lasix, Flonase, iron sulfate, ertapenem dose has been adjusted down to 3.5 g daily by the pharmacy, diltiazem, Sensipar, Eliquis, Norvasc, Zyloprim, DuoNeb. EXAMINATION: Blood pressure is 141/77with pulse of 83, temperature 98.1. She is 98% on 2 L nasal cannula. General description is an elderly female up in the chair in no distress. No tachypnea or accessory muscle of respiration use. HEENT: Shows slight pallor. No scleral icterus. Oral mucosa is dry. No pharyngeal erythema or thrush. NECK: Trachea central. No thyromegaly. LUNGS: Unlabored breathing. Clear to auscultation anteriorly. No wheeze or crackle. HEART: S1, S2. Regular rate and rhythm. ABDOMEN: Soft, no tenderness. No guarding, no rigidity. EXTREMITIES: No edema. SKIN EXAMINATION: No rash or mass palpable. NEUROLOGIC: The patient is awake, alert, oriented x1. Mood and affect normal. LABS: Hemoglobin 10.8, white count 4.8 with a BUN of 15, creatinine 0.70. No UA was done, however, the urine culture showing more than 100,000 colonies of the ESBL E coli. DIAGNOSTIC IMPRESSION AND PLAN: Patient with a positive urine culture with an ESBL E coli with a question of possible mild cystitis. Clinically doubt deep infection versus colonization/contamination as the patient is currently not running any fever or elevated white count and it is very hard to get any history from this patient regarding urinary symptoms. However, the RN did mention a urinary incontinence. PLAN: 1. We will try to obtain a straight cath UA and cultures to rule out contamination or colonization. 2. We will keep the patient on ertapenem 3.5 g IV piggyback daily while the repeat urine culture finalized. 3. We will follow up on clinical condition and further adjust medication if needed. Thank you for this consultation. I will follow this patient along with you. MMODL / IJN: [id number] /
[2018-02-28] MEDS: ALPRAZolam 0.25 MG TAB PO SCH (20:36)
[2018-02-28] MEDS: MELATONIN 3 MG TABLET PO SCH (20:37)
[2018-02-28] MEDS: prednisoLONE ACETATE 1% OPHTH DROPS 5 ML BTL BOTH EYES SCH (20:38)
[2018-02-28] MEDS: LATANOPROST 0.005% OPHTH DROPS 2.5 ML BTL LEFT EYE SCH (20:50)
--- NOTE | 2018-02-28 21:02 | P.PN ---
Subjective Principal diagnosis: Stroke Neurology is following in an 43-[id number]-gjb-year-old female for stroke. Patient was brought to the emergency room when the family noticed she was slurring her speech and her speech was not making sense. It was unclear when the symptoms began the patient is a poor historian. Patient is noted to have a fall approximately 2 weeks ago and a head injury with a concussion. She was worked up at that time and discharged. Soon after the incident she began having symptoms. In the emergency room, CT of the brain was done which showed evidence of an acute versus subacute ischemic stroke involving the left tempo parietal region CBC showed anemia. CMP showed hyponatremia, renal insufficiency and elevated liver enzymes. Time of evaluation, patient was in the room, no acute distress alert, anxious and appeared visibly frustrated and at times agitated. Interval update 02/27/18: Neurology is continuing to follow in an 81-year-old female for possible stroke with abnormal CT finding suggestive of possible mass. patient appears much more calm today. However, patient would not actively allow provider to conduct a full physical exam. Patient was observed to be seated in bedside chair and appears to be alert. She will converse with nursing staff however will answer inappropriately as expected with patient's known Wernicke's aphasia. patient does not appear to be in any acute distress. Provider did order Zoloft 12.5 mg to be used if patient's anxiety and agitation increased yesterday in place of Nudexta or possible pseudobulbar affect but patient did not require medication to be used. MRI of the brain was previously ordered as suggested and CT brain of 02/25/18. However, radiology advises the patient does have metal fragments which make MRI contraindicated at this time. Updated CT of the brain was requested. CT brain notes "there is an area of hyperdensity within the left inferior parietal lobe with surrounding hypodensity suggestive for underlying mass." Impression notes that findings are suspicious for underlying mass in the left parietal lobe or subacute ischemic changes. It does recommend MRI which has previously noted is unable to be obtained. Imaging appears stable over the previous interval. Interval update 02/28/18: Neurology is continuing to follow in an 81-year-old female for possible stroke with abnormal CT finding suggestive of possible mass. Patient appears unchanged.Patient would not actively allow provider to conduct a full physical exam. Patient was observed to be seated in bedside chair and appears to be alert. She will converse with nursing staff however will answer inappropriately as expected with patient's known Wernicke's aphasia. Patient does not appear to be in any acute distress. Zoloft 12.5 mg has still not had to be used for anxiety and agitation. oncology has been recommended for consult on this patient as it is possible that the patient's changes noted on CT and repeat CT of the brain are more suggestive of parietal lobe mass versus ischemia. Objective - Vital Signs Vital signs: Vital Signs Temp 98.1 F 02/28/18 12:04 Pulse 86 02/28/18 12:04 Resp 16 02/28/18 12:04 BP 141/77 02/28/18 12:04 Pulse Ox 98 02/28/18 12:04 Intake & Output 02/28/18 02/28/18 03/01/18 06:59 18:59 06:59 Intake Total 410 Balance 410 Weight 73.5 kg Intake: Intake, IV Titration 50 Amount Ertapenem 0.5 gm In 50 Sodium Chloride 0.9% 50 ml @ 100 mls/hr IVPB Q24H [facility] Rx#:[id number] Oral 360 Other: Voiding Method Diaper Diaper Incontinent Incontinent # Voids 1 - Exam General appearance: Alert & oriented, no apparent distress. Head: Atraumatic, normocephalic, normal inspection Eyes: Well appearance, PERRLA, EOMI. Absent scleral icterus, conjunctival injection, nystagmus, periorbital swelling. Ear, nose and throat: Normal exam, mucous membranes moist Neck: Normal inspection, absent tenderness, lymphadenopathy. Respiratory: No increased work of breathing Cardiovascular: Regular rate, rhythm GI/abdominal: No guarding Extremities: Moves all 4 extremities Neurological: No obvious facial asymmetry no lateralizing weakness no seizure activity noted on physical exam no pronator drift and no nystagmus. Significant receptive aphasia Each mildly dysarthric Strength is equal and symmetrical in all 4 extremities Sensation: Normal 4 Psychological: Vacillates and ranges from extremely calm to extremely frustrated with intermittent anger and frustration consistent with possible pseudobulbar affect. Psych has evaluated the patient and deemed the patients actions to be consistent with post brain injury. - Labs CBC & Chem 7: 02/28/18 06:44 02/28/18 06:44 Labs: Abnormal Lab Results - Last 24 Hours (Table) 02/28/18 02/28/18 02/28/18 Range/Units 06:44 06:44 13:35 RBC 3.77 L (3.80-5.40) m/uL Hgb 10.2 L (11.4-16.0) gm/dL Hct 33.2 L (34.0-46.0) % MCHC 30.7 L (31.0-37.0) g/dL RDW 17.4 H (11.5-15.5) % Lymphocytes # 0.3 L (1.0-4.8) k/uL Chloride 112 H (98-107) mmol/L Carbon Dioxide 19 L (22-30) mmol/L BUN 50 H (7-17) mg/dL Creatinine 2.70 H (0.52-1.04) mg/dL Glucose 122 H (74-99) mg/dL Alkaline Phosphatase 128 H (38-126) U/L Total Protein 5.0 L (6.3-8.2) g/dL Albumin 2.5 L (3.5-5.0) g/dL Urine Blood Trace H (Negative) Urine RBC 7 H (0-5) /hpf Urine Bacteria Rare H (None) /hpf Urine Mucus Rare H (None) /hpf Microbiology - Last 24 Hours (Table) 02/25/18 19:50 Urine Culture - Final Urine,Voided Escherichia coli Assessment and Plan (1) Acute ischemic stroke Current Visit: Yes Status: Acute Code(s): I63.9 - CEREBRAL INFARCTION, UNSPECIFIED SNOMED Code(s): 707611675 (2) Receptive aphasia Current Visit: Yes Status: Acute Code(s): R47.01 - APHASIA SNOMED Code(s) : 379831921 (3) Dysarthria Current Visit: Yes Status: Acute Code(s): R47.1 - DYSARTHRIA AND ANARTHRIA SNOMED Code(s): 5759606 (4) PBA (pseudobulbar affect) Current Visit: Yes Status: Acute Code(s): F48.2 - PSEUDOBULBAR AFFECT SNOMED Code(s): 49522114 (5) Mass of left parietal lobe Current Visit: Yes Status: Acute Code(s): G93.9 - DISORDER OF BRAIN, UNSPECIFIED SNOMED Code(s): 088353585 Plan: Although the original CT brain was more suggestive for ischemic stroke with significant Aphasia, updated CT of the brain at this point is highly suspicious for mass within the left inferior parietal lobe after review by supervising physician. Recommend oncology consult at this time for further evaluation of the patient as well as imaging findings as noted. Continue antiplatelet therapy, continue antihyperlipidemic therapy. Based on psychiatric consultation note, patient does also appear to have symptoms consistent with possible pseudobulbar affect. Nursing can implement Zoloft 12.5 mg daily for patient's symptoms if necessary. Order placed in patient's chart if needed should symptoms increase. Nursing expressed concern related to patient's significant mood swings and agitation times. If the Zoloft is implemented, nursing must notify neurology at time of implementation. Neurology to be notified with any neurological status changes. Status: Neurology will defer treatment to primary team and oncology. Patient can be cleared for discharge and placement in rehabilitation facility from a neurological standpoint. Neurology will remain available for reconsult if needed in the future. Patient to follow up with neurology within 14 days of discharge I have discussed the plan of care with the physician prior to implementation and he agrees with the plan as implemented.
[2018-02-28] MEDS: ERTAPENEM 0.5 GM in SODIUM CHLORIDE 0.9% 50 ML IVPB SCH (22:01)
--- NOTE | 2018-02-28 22:03 | PN ---
PROGRESS NOTE SUBJECTIVE: 82-year-old white female with altered mental status changes, possibly acute CVA and aphasia. Possibly receptive in expressive aphasia. Although I can understand what she is saying now. She has ESBL/UTI awaiting Dr. Alejandre's recommendations for IV antibiotics to go home. Cardiovascular S1, S2. Lungs clear. Oral facial function, but family wants on regular diet at this time as she is refusing a swallow eval. She has dementia. Continue home medications. Diastolic heart failure. Continue home medications. Please see further orders. She has end stage, stage IV renal disease which is slowly worsening. We will have to follow it closely. Possible discharge to long term on Saturday. MMODL / IJN: [id number] /
[2018-02-28] MEDS ORDERED: IPRATROPIUM-ALBUTEROL 3 ML NEB INHALATION PRN (23:37)
[2018-03-01] MEDS: LEVOTHYROXINE 25 MCG TAB PO SCH (05:25)
[2018-03-01] MEDS: DILTIAZEM ORAL 60 MG TAB PO SCH ×3 (05:25→21:57)
[2018-03-01] MEDS: CINACALCET 30 MG TAB PO SCH (05:25)
[2018-03-01] MEDS: IPRATROPIUM-ALBUTEROL 3 ML NEB INHALATION SCH ×4 (07:06→19:20)
[2018-03-01 07:42] LABS: Calcium 9.1 mg/dL (8.4-10.2); Potassium 4.4 mmol/L (3.5-5.1)
[2018-03-01] MEDS: FUROSEMIDE 40 MG TAB PO SCH (10:34)
[2018-03-01] MEDS: METOPROLOL TARTRATE 50 MG TAB PO SCH ×2 (10:34→21:56)
[2018-03-01] MEDS ORDERED: IOPAMIDOL-300 CONTRAST 30 ML VIAL (ORAL USE) PO PRN (11:52)
--- NOTE | 2018-03-01 12:03 | P.CONS ---
History of Present Illness - Reason for Consult Consult date: 02/28/18 possible left brain mass - History of Present Illness Ms. Sawyer is an 82-year-old with multiple medical problems. The patient has a known history of atrial fibrillation and is on anticoagulation. She is an [facility] resident and had apparently fallen and hurt her head about 2-3 weeks ago. She had not lost consciousness but according to her family, since then, had developed major changes in mental status. She had been more lethargic, sleepy, and irritable with marked forgetfulness and confusion. It does appear that there is some underlying dementia previously, but her current condition was a definite change from before. She was therefore brought into the emergency room , and had a CT scan of the brain done, without contrast. This was initially read as possible new ischemic changes in the left temporal area. The patient was seen by neurology, and had repeat CT scan of the brain done today. This revealed this area to have vasogenic edema, with, now, an appearance more suspicious for an underlying mass. Therefore consultfor further evaluation and recommendations. The patient at the time of exam was lethargic, irritable, and agitated. She was unable to provide any history. History was obtained from the EMR. Family will also be contacted subsequently. Review of Systems patient unable to provide. Obtained from EMR Constitutional: Reports poor appetite, Reports weakness Eyes: right decreased vision, right loss of vision Ears: deny: decreased hearing, ear discharge, earache, tinnitus Ears, nose, mouth and throat: Denies headache, Denies sore throat Cardiovascular: Reports irregular heart beat Respiratory: Denies cough Gastrointestinal: Denies abdominal pain, Denies diarrhea, Denies nausea, Denies vomiting Genitourinary: Denies dysuria, Denies hematuria Menstruation: Reports postmenopausal Musculoskeletal: Reports muscle weakness Integumentary: Denies pruritus, Denies rash Neurological: Reports as per HPI, Reports change in mentation, Reports change in speech, Reports memory loss Psychiatric: Reports confusion, Reports irritability Endocrine: Reports fatigue Hematologic/Lymphatic: Reports as per HPI Past Medical History Past Medical History: Heart Failure, COPD, Dementia, GERD/Reflux, Hyperlipidemia , Hypertension, Pneumonia, Renal Disease, Respiratory Disorder, Thyroid Disorder Additional Past Medical History / Comment(s): Pt was born with cleft palate and other physical problems with facial structures including nasal passages and ear canals(has metal ) and festus at bedside states that the ear canals are collapsing. 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 Last Myocardial Infarction Date:: unknown History of Any Multi-Drug Resistant Organisms: ESBL Year Discovered:: 02/21/18 MDRO Source:: ESBL URINE Past Surgical History: Bladder Surgery, Hysterectomy, Joint Replacement, Orthopedic Surgery Additional Past Surgical History / Comment(s): Pt has had multiple surgeries for defects affecting mouth, nose and ears, total L knee arthroplasty, bladder sling, fistula L arm.PARTIAL HYSTERECTOMY, PICC LINE-SINCE REMOVED Past Anesthesia/Blood Transfusion Reactions: No Reported Reaction Smoking Status: Former smoker - Past Family History Father Family Medical History: Cancer Additional Family Medical History / Comment(s): Father prior to age 60 yrs with esophageal cancer. He was a smoker and a drinker. Mother Family Medical History: Osteoarthritis (OA), Renal Disease, Rheumatoid Arthritis (RA) Additional Family Medical History / Comment(s): kidney problems, specific type unknown Medications and Allergies Home Medications Medication Instructions Recorded Confirmed Type Fluticasone Nasal [place] [Flonase 1 spray EA NOSTRIL BID@02/16/17 02/24/18 History Nasal [place]] Levothyroxine Sodium [Synthroid] 25 mcg PO DAILY@0602/16/17 02/24/18 History Acetaminophen Tab [Tylenol] 650 mg PO Q6HR PRN tab 02/20/17 02/24/18 Rx ALPRAZolam [Xanax] 0.25 mg PO HS@2100 04/12/17 02/24/18 History Atorvastatin [Lipitor] 10 mg PO HS@2100 04/12/17 02/24/18 History Buprenorphine [Butrans 10 MCG/HOUR] 1 patch TRANSDERM TU@0600 04/12/17 02/24/18 History Ergocalciferol (Vitamin D2) 50,000 unit PO Q30D 04/12/17 02/24/18 History [Vitamin D2] Loratadine [Claritin] 10 mg PO DAILY@0900 04/12/17 02/24/18 History Potassium Chloride [Klor-Con 20] 20 meq PO BID@0900,1700 04/12/17 02/24/18 History Ranitidine HCl [Zantac] 150 mg PO BID@0900,1700 04/12/17 02/24/18 History guaiFENesin [guaiFENesin Oral 200 mg PO Q4HR PRN 04/12/17 02/24/18 History Solution] prednisoLONE ACETATE [Pred Forte 2 drop BOTH EYES HS@209904/12/17 02/24/18 History 1%] Magnesium Hydroxide [Milk of 2,400 mg PO DAILY PRN ml 04/15/17 02/24/18 Rx Magnesia Concentrate] Ferrous Sulfate [Feosol] 325 mg PO BID@0900,1700 09/30/17 02/24/18 History Latanoprost [Xalatan 0.005%] 1 drop LEFT EYE HS@209909/30/17 02/24/18 History Melatonin 3 mg PO HS@209909/30/17 02/24/18 History Vit C/E/Zn/Coppr/Lutein/Zeaxan 1 cap PO BID@09/30/17 02/24/18 History [Preservision Areds 2 Softgel] acetaZOLAMIDE [Diamox] 250 mg PO TU@89909/30/17 02/24/18 History HYDROcodone/APAP 5-325MG [[place] 1 tab PO Q8H PRN 02/05/18 02/24/18 History 5-325] Allopurinol [Zyloprim] 200 mg PO DAILY@89902/24/18 02/24/18 History Apixaban [Eliquis] 2.5 mg PO BID@02/24/18 02/24/18 History Cinacalcet [Sensipar] 30 mg PO DAILY@59902/24/18 02/24/18 History Diltiazem Oral [Cardizem*] 60 mg PO TID@06,,02/24/18 02/24/18 History Ipratropium-Albuterol Nebulize 3 ml INHALATION RT-BID@02/24/18 02/24/18 History [Duoneb 0.5 mg-3 mg/3 ml Soln] Ipratropium-Albuterol Nebulize 3 ml INHALATION RT-Q6H PRN 02/24/18 02/24/18 History [Duoneb 0.5 mg-3 mg/3 ml Soln] Levofloxacin [Levaquin] 500 mg PO HS@2100 02/24/18 02/24/18 History Losartan Potassium 100 mg PO DAILY@89902/24/18 02/24/18 History Metoprolol Tartrate [Lopressor] 50 mg PO BID@02/24/18 02/24/18 History Sennosides-Docusate Sodium 1 tab PO BID@02/24/18 02/24/18 History [Senokot-S] amLODIPine [Norvasc] 5 mg PO DAILY@89902/24/18 02/24/18 History Allergies Allergy/AdvReac Type Severity Reaction Status Date / Time No Known Allergies Allergy Verified 02/24/18 17:36 Physical Exam Vitals: Vital Signs Temp Pulse Pulse Pulse Resp BP Pulse Ox 02/28/18 21:00 98.6 F 112 H 97 14 141/74 94 L 02/28/18 12:04 98.1 F 86 16 141/77 98 02/28/18 08:10 84 02/28/18 08:02 84 02/28/18 05:00 97.5 F L 98 15 145/61 97 02/28/18 00:03 80 02/27/18 23:51 80 Intake and Output 02/28/18 02/28/18 02/28/18 06:59 14:59 22:59 Intake Total 410 Balance 410 Intake: Intake, IV Titration 50 Amount Ertapenem 0.5 gm In 50 Sodium Chloride 0.9% 50 ml @ 100 mls/hr IVPB Q24H [facility] Rx#:[id number] Oral 360 Other: Voiding Method Diaper Diaper Diaper Incontinent Incontinent Incontinent # Voids 1 Weight 73.5 kg the patient was lethargic, but irritable and easily agitated. She was resistant to physical exam, and therefore only a limited exam was possible. Lymph node exam, chest/CVS exam was not possible to perform due to the patient' s uncle - Constitutional General appearance: no acute distress - EENT loss of vision right eye, with atrophied eyeball and scarring of sclera ENT: hearing grossly normal - Neck Neck: no lymphadenopathy Thyroid: bilateral: normal size - Cardiovascular Rhythm: irregularly irregular - Gastrointestinal General gastrointestinal: normal bowel sounds, soft - Integumentary Integumentary: normal - Neurologic right-sided vision loss. Strength in the extremities diminished generally, but symmetric - Musculoskeletal Musculoskeletal: generalized weakness, strength equal bilaterally - Psychiatric confused, poor recall, agitated. Able to follow some commands. Results CBC & Chem 7: 02/28/18 06:44 03/01/18 06:32 Labs: Abnormal Lab Results - Last 24 Hours (Table) 02/28/18 02/28/18 02/28/18 Range/Units 06:44 06:44 13:35 RBC 3.77 L (3.80-5.40) m/uL Hgb 10.2 L (11.4-16.0) gm/dL Hct 33.2 L (34.0-46.0) % MCHC 30.7 L (31.0-37.0) g/dL RDW 17.4 H (11.5-15.5) % Lymphocytes # 0.3 L (1.0-4.8) k/uL Chloride 112 H (98-107) mmol/L Carbon Dioxide 19 L (22-30) mmol/L BUN 50 H (7-17) mg/dL Creatinine 2.70 H (0.52-1.04) mg/dL Glucose 122 H (74-99) mg/dL Alkaline Phosphatase 128 H (38-126) U/L Total Protein 5.0 L (6.3-8.2) g/dL Albumin 2.5 L (3.5-5.0) g/dL Urine Blood Trace H (Negative) Urine RBC 7 H (0-5) /hpf Urine Bacteria Rare H (None) /hpf Urine Mucus Rare H (None) /hpf Microbiology - Last 24 Hours (Table) 02/25/18 19:50 Urine Culture - Final Urine,Voided Escherichia coli Chest x-ray: report reviewed CT Scan - head: report reviewed Assessment and Plan (1) Brain mass Narrative/Plan: the patient was initially felt to have an ischemic stroke. However subsequent imaging indicates that the left-sided lesion is more likely to be a mass. she has had a noncontrast CAT scan of the brain, which is not very sensitive or specific for a mass. Unfortunately more specific imaging cannot be ordered at this point. Her creatinine is too high to allow contrast study with either CT scan or MRI. MRI without contrast also is not an option, as the patient has some metal from previous surgery in her skull. Therefore at this time we will empirically start steroids, and monitor her response to the same I will also order CT scans of the chest abdomen and pelvis, with oral contrast only. If these show evidence of malignancy, then metastatic disease in the brain becomes more likely. The patient herself, at this time is unable to provide any history, or make decisions. Depending on her response, and additional findings, we will need to discuss with the family Re: Additional investigations especially if invasive procedure such as biopsies are felt to be required Current Visit: Yes Status: Acute Code(s): G93.9 - DISORDER OF BRAIN, UNSPECIFIED SNOMED Code(s): 422589708 (2) AVERY (acute kidney injury) Narrative/Plan: nephrology is following. Follow kidney function. However it appears that her baseline creatinine is in the 2 range and therefore it is unlikely to improve to a point where contrast would be safe to administer. if we have a situation where construct contrast administration is felt to be absolutely necessary, then we will coordinate with nephrology to see if it be possible to perform, with additional protection such as hydration and Mucomyst. Current Visit: No Status: Acute Priority: High Code(s): N17.9 - ACUTE KIDNEY FAILURE, UNSPECIFIED SNOMED Code(s): 05644699 Plan: the patient has multiple other medical problems. Refer to the admitting service and other consultants for management of the above
--- NOTE | 2018-03-01 12:12 | P.PN ---
Subjective Progress Note Date: 03/01/18 Principal diagnosis: This is a 82-year-old female seen in consultation because of acute kidney injury secondary to congestive heart failure and chronic kidney disease. Her creatinine continues to remain elevated. She was changed from IV Lasix to by mouth Lasix yesterday. It is difficult to understand her as her speech is slurred and there is computed tomography scan of the head showing a mass in the left temporal and parietal lobe.. She is audibly wheezing. She is also has had ESBL E. coli urine culture. History of present illness: Patient is a 82-year-old female seen in renal consultation for acute kidney injury on chronic kidney disease. Patient has chronic kidney disease stage III with baseline creatinine near 2. Creatinine was 2.01 on admission and is up to 2.22 today. Patient presented to the hospital with altered mental status and slurring of speech. CAT scan of the brain is suggestive of acute ischemia in the left temporal and parietal lobe. Neurology is following. She also has history of diastolic CHF with moderate to severe tricuspid regurgitation and mild to moderate pulmonary hypertension. Chest x-ray suggestive of pulmonary edema. Patient's currently resting in bed. Denies chest pain or shortness of breath. No vomiting or diarrhea. Oral intake is poor. No hematuria or dysuria. Hemodynamically stable. Objective - Vital Signs Vital signs: Vital Signs Temp 97.9 F 03/01/18 05:00 Pulse 100 03/01/18 11:37 Resp 18 03/01/18 11:37 BP 142/68 03/01/18 05:00 Pulse Ox 97 03/01/18 07:07 Intake & Output 02/28/18 03/01/18 03/01/18 18:59 06:59 18:59 Intake Total 50 Balance 50 Weight 73.5 kg Intake: Intake, IV Titration 50 Amount Ertapenem 0.5 gm In 50 Sodium Chloride 0.9% 50 ml @ 100 mls/hr IVPB Q24H [facility] Rx#:[id number] Other: Voiding Method Diaper Diaper Incontinent Incontinent # Voids 2 1 On examination she is awake alert. Difficult to figure out her orientation because of her speech impediment HEENT exam no JVP neck is supple no facial asymmetry Lungs are significant for bilateral wheezing which is fairly audible. Air entry is unremarkable and nearly normal Heart sounds are difficult to hear because of the audible wheezing. Abdomen is soft nontender non-distended no masses felt Extremity exam trace edema The right leg is bandaged. Neurologically awake alert but difficult to understand her speech. Moves all her activities. She is known with dementia in the past for the past medical history noted in the chart. She's had cleft palate in the past. - Labs CBC & Chem 7: 02/28/18 06:44 03/01/18 06:32 Labs: Abnormal Lab Results - Last 24 Hours (Table) 02/28/18 03/01/18 Range/Units 13:35 06:32 Chloride 112 H (98-107) mmol/L Carbon Dioxide 20 L (22-30) mmol/L BUN 48 H (7-17) mg/dL Creatinine 2.61 H (0.52-1.04) mg/dL Glucose 111 H (74-99) mg/dL Urine Blood Trace H (Negative) Urine RBC 7 H (0-5) /hpf Urine Bacteria Rare H (None) /hpf Urine Mucus Rare H (None) /hpf Assessment and Plan Assessment: Impression 1. Acute kidney injury secondary to cardiorenal syndrome and slightly better today after discontinuation of Cozaar and change of Lasix to oral from IV. Creatinine went down from 2.7-2.61. 2. Chronic kidney disease stage IIIB, etiology is nephrosclerosis. 3. Congestive heart failure. Continuing to have wheezing. 4. ESBL E. coli UTI. 5. Acute CVA, computed tomography scan shows left parietal lobe mass or ischemic change. 6. Mild non-gap acidosis with bicarb of 20. 7. Anemia hemoglobin is 10.2 Recommendation. 1. Check postvoid residual bladder scan. 2. Check orthostatic changes. 3. Maintain diuretic regimen for right now
[2018-03-01] MEDS: FLUTICASONE 50MCG/SPRAY NASAL 16GM EA NOSTRIL SCH ×2 (13:16→21:58)
[2018-03-01] MEDS: FERROUS SULFATE 325 MG TAB PO SCH ×2 (13:16→18:12)
[2018-03-01] MEDS: DEXAMETHASONE SOD PHOSPHATE 4 MG/ML 1 ML VIAL IV SCH ×3 (13:18→23:27)
[2018-03-01] MEDS: SENNOSIDES-DOCUSATE SODIUM 1 EACH TAB PO SCH ×2 (13:21→21:58)
[2018-03-01] MEDS: ALLOPURINOL 100 MG TAB PO SCH (13:21)
[2018-03-01] MEDS: amLODIPine 5 MG TAB PO SCH ×2 (13:22→21:57)
[2018-03-01] MEDS: APIXABAN 2.5 MG TABLET PO SCH ×2 (13:22→21:58)
[2018-03-01] MEDS: SODIUM BICARBONATE TAB 650 MG TAB PO SCH ×2 (13:23→21:58)
[2018-03-01] MEDS: LORATADINE 10 MG TAB PO SCH (13:23)
[2018-03-01] MEDS: FAMOTIDINE 20 MG TAB PO SCH (13:23)
--- NOTE | 2018-03-01 17:20 | XR ---
EXAMINATION TYPE: XR chest 2V DATE OF EXAM: 03/01/2018 COMPARISON: 02/25/2018 INDICATION: Short of breath TECHNIQUE: Frontal and lateral views of the chest are obtained. FINDINGS: The heart size is normal. The pulmonary vasculature is prominent. Diffuse increased lung markings are present. There is some silhouetting of the right diaphragm. Findi ngs are worsening. IMPRESSION: 1. Clinical correlation recommended for congestive heart failure and pulmonary edema.
--- NOTE | 2018-03-01 20:37 | PN ---
PROGRESS NOTE SUBJECTIVE: 82-year-old white female who has possibly a brain mass versus intracranial hemorrhage. Has been placed on IV steroids. CT scan of the abdomen has been ordered with contrast, which she will not tolerate. She is refusing medicines this morning. She has ESBL UTI. She is on IV antibiotics for this. She is swallowing okay. She has some aphasia and expressively but does say hi and is close to her baseline in my opinion. VITAL SIGNS: Stable. Afebrile. CARDIOVASCULAR: S1, S2. LUNGS: Scattered rhonchi. HEMATOLOGY: Negative Homans. OPHTHALMOLOGIC: Pupils equal, round, reactive to light and accommodation. ASSESSMENT: 1. Possible brain mass. 2. CT scan of the abdomen. 3. ESBL urinary tract infection. 4. Altered mental status. 5. Pseudobulbar aphasia. 6. Depression. 7. Diastolic congestive heart failure. Please see further orders. MMODL / IJN: [id number] /
--- NOTE | 2018-03-01 20:46 | PN ---
PROGRESS NOTE DATE OF SERVICE: 03/01/2018. REASON FOR FOLLOWUP: ESBL E coli UTI. INTERVAL HISTORY: The patient is currently afebrile. She is breathing comfortably. Hemodynamically stable. No nausea or vomiting has been noticed or any diarrhea. She was unable to provide reliable history though. EXAMINATION: Blood pressure 152/84 with a pulse of 104. Temperature 97.9. She is 90% on room air. General description is an elderly female lying in bed in no distress. RESPIRATORY SYSTEM: Unlabored breathing. Clear to auscultation anteriorly. HEART: S1, S2. Regular rate and rhythm. ABDOMEN: Soft, no tenderness. LABS: BUN of 48, creatinine is 2.61. Repeat urine is not significantly positive. DIAGNOSTIC IMPRESSION AND PLAN: Patient with ESBL E coli and positive urine culture. Unfortunately no UA was done on this but urine culture with question of possible mild cystitis versus a colonizer contaminant. Recommend only a 3 day course of IV Invanz and should be discontinued afterwards and continue monitoring patient closely on antibiotic therapy. Continue supportive care. MMODL / IJN: [id number] /
[2018-03-01] MEDS: LATANOPROST 0.005% OPHTH DROPS 2.5 ML BTL LEFT EYE SCH (21:57)
[2018-03-01] MEDS: prednisoLONE ACETATE 1% OPHTH DROPS 5 ML BTL BOTH EYES SCH (21:57)
[2018-03-01] MEDS: ALPRAZolam 0.25 MG TAB PO SCH (21:57)
[2018-03-01] MEDS: MELATONIN 3 MG TABLET PO SCH (21:57)
[2018-03-01] MEDS: ERTAPENEM 0.5 GM in SODIUM CHLORIDE 0.9% 50 ML IVPB SCH (23:26)
[2018-03-02] MEDS: LEVOTHYROXINE 25 MCG TAB PO SCH (05:35)
[2018-03-02] MEDS: DILTIAZEM ORAL 60 MG TAB PO SCH ×3 (05:35→23:24)
[2018-03-02] MEDS: CINACALCET 30 MG TAB PO SCH (05:36)
[2018-03-02] MEDS: IPRATROPIUM-ALBUTEROL 3 ML NEB INHALATION SCH ×4 (07:21→19:24)
[2018-03-02] MEDS: METOPROLOL TARTRATE 50 MG TAB PO SCH ×2 (09:08→20:15)
[2018-03-02] MEDS: FUROSEMIDE 40 MG TAB PO SCH (09:08)
[2018-03-02] MEDS: amLODIPine 5 MG TAB PO SCH ×2 (09:08→20:16)
[2018-03-02] MEDS: DEXAMETHASONE SOD PHOSPHATE 4 MG/ML 1 ML VIAL IV SCH ×2 (09:08→17:49)
[2018-03-02] MEDS: APIXABAN 2.5 MG TABLET PO SCH ×2 (09:08→20:16)
[2018-03-02] MEDS: FAMOTIDINE 20 MG TAB PO SCH (10:46)
[2018-03-02] MEDS: ALLOPURINOL 100 MG TAB PO SCH (10:46)
[2018-03-02] MEDS: FERROUS SULFATE 325 MG TAB PO SCH ×2 (10:47→17:39)
[2018-03-02] MEDS: SODIUM BICARBONATE TAB 650 MG TAB PO SCH ×2 (10:47→20:17)
[2018-03-02] MEDS: SENNOSIDES-DOCUSATE SODIUM 1 EACH TAB PO SCH ×2 (10:47→20:17)
[2018-03-02] MEDS: FLUTICASONE 50MCG/SPRAY NASAL 16GM EA NOSTRIL SCH ×2 (10:47→20:16)
[2018-03-02] MEDS: LORATADINE 10 MG TAB PO SCH (10:47)
--- NOTE | 2018-03-02 13:38 | P.PN ---
Subjective Progress Note Date: 03/02/18 Principal diagnosis: This is a 82-year-old female seen in consultation because of acute kidney injury secondary to congestive heart failure and chronic kidney disease. Her creatinine continues to remain elevated. She was changed from IV Lasix to by mouth Lasix day before yesterday. It is difficult to understand her as her speech is slurred and there is computed tomography scan of the head showing a mass in the left temporal and parietal lobe, although this morning not garbled anymore. She is able to speak. She is remains confused though. She is also has had ESBL E. coli urine culture. She had a bladder scan yesterday which was in the 380 mL of urine but repeat was unremarkable. Therefore a catheter was not placed. Her intake is rather minimal. She has difficulty swallowing and is on a thickened liquid. History of present illness: Patient is a 82-year-old female seen in renal consultation for acute kidney injury on chronic kidney disease. Patient has chronic kidney disease stage III with baseline creatinine near 2. Creatinine was 2.01 on admission and is up to 2.22 today. Patient presented to the hospital with altered mental status and slurring of speech. CAT scan of the brain is suggestive of acute ischemia in the left temporal and parietal lobe. Neurology is following. She also has history of diastolic CHF with moderate to severe tricuspid regurgitation and mild to moderate pulmonary hypertension. Chest x-ray suggestive of pulmonary edema. Patient's currently resting in bed. Denies chest pain or shortness of breath. No vomiting or diarrhea. Oral intake is poor. No hematuria or dysuria. Hemodynamically stable. Objective - Vital Signs Vital signs: Vital Signs Temp 96.7 F L 03/02/18 12:22 Pulse 89 03/02/18 12:22 Resp 18 03/02/18 12:22 BP 133/75 03/02/18 12:22 Pulse Ox 95 03/02/18 12:22 Intake & Output 03/01/18 03/02/18 03/02/18 18:59 06:59 18:59 Intake Total 80 Output Total 775 Balance -775 80 Weight 79 kg Intake: Intake, IV Titration 50 Amount Ertapenem 0.5 gm In 50 Sodium Chloride 0.9% 50 ml @ 100 mls/hr IVPB Q24H [facility] Rx#:[id number] Oral 30 Output: Post Void Residual 775 Other: Voiding Method Diaper Diaper Diaper Incontinent Incontinent Incontinent # Voids 1 1 1 On examination she is awake alert today compared to yesterday. She is disoriented HEENT exam no JVP neck is supple no facial asymmetry Lungs are clear to auscultation fair air entry bilaterally Heart sounds are unremarkable no murmur rub gallop Abdomen soft nontender Extremity exam was minimal edema Neurologically awake alert but disoriented. Moves all her extremities. - Labs CBC & Chem 7: 02/28/18 06:44 03/01/18 06:32 Assessment and Plan Assessment: Impression 1. Acute kidney injury secondary to cardiorenal syndrome and slightly better today after discontinuation of Cozaar and change of Lasix to oral from IV. Creatinine went down from 2.7-2.61, as of yesterday no labs are available this morning.. 2. Chronic kidney disease stage IIIB, etiology is nephrosclerosis. 3. Congestive heart failure. Breathing is improved compared to yesterday when she had wheezing. Chest x-ray today shows worsening as of yesterday 03/01/2018 , on Lasix 40 mg by mouth daily 4. ESBL E. coli UTI. 5. Acute CVA, computed tomography scan shows left parietal lobe mass or ischemic change. 6. Mild non-gap acidosis with bicarb of 20. 7. Anemia hemoglobin is 10.2 8. Recommendation. 1. Give her extra dose of 40 mg Lasix today 2. Check orthostatic changes.
[2018-03-02] MEDS ORDERED: FUROSEMIDE 40 MG TAB PO STA (13:40)
--- NOTE | 2018-03-02 18:07 | P.PN ---
Subjective Progress Note Date: 03/02/18 Principal diagnosis: esbl uti brain mass crd 4 encephalopathy pulmonary fibrosis less garbled speech today thickened liquids iv ivanz for esbl uti Objective - Vital Signs Vital signs: Vital Signs Temp 96.7 F L 03/02/18 12:22 Pulse 89 03/02/18 12:22 Resp 18 03/02/18 12:22 BP 133/75 03/02/18 12:22 Pulse Ox 95 03/02/18 12:22 Intake & Output 03/01/18 03/02/18 03/02/18 18:59 06:59 18:59 Intake Total 80 Output Total 775 Balance -775 80 Weight 79 kg 78.5 kg Intake: Intake, IV Titration 50 Amount Ertapenem 0.5 gm In 50 Sodium Chloride 0.9% 50 ml @ 100 mls/hr IVPB Q24H [facility] Rx#:[id number] Oral 30 Output: Post Void Residual 775 Other: Voiding Method Diaper Diaper Diaper Incontinent Incontinent Incontinent # Voids 1 1 1 - Constitutional General appearance: Present: no acute distress, obese - EENT ENT: Present: hearing grossly normal - Neck Thyroid: bilateral: normal size - Respiratory Respiratory: left: wheezing - Cardiovascular Heart sounds: normal: S1, S2 - Gastrointestinal General gastrointestinal: Present: normal bowel sounds - Musculoskeletal Musculoskeletal: Present: generalized weakness - Labs CBC & Chem 7: 02/28/18 06:44 03/01/18 06:32 Assessment and Plan Assessment: crd4 brain mass pulmonary fibrosis uti esbl Plan: iv antibiotics oral lasix labs in am residential tomorrow Time with Patient: Less than 30
--- NOTE | 2018-03-02 19:17 | CT ---
EXAMINATION TYPE: CT ChestAbdPelvis wo con DATE OF EXAM: 03/02/2018 COMPARISON: None HISTORY: POSSIBLE METS chest and abdominal pain CT DLP: 946.7 mGycm. Automated Exposure Control for Dose Reduction was Utilized. TECHNIQUE: CT scan of the thorax, abdomen and pelvis is performed without IV contrast. FINDINGS: There are bilateral pleural effusions. There is some infiltrate and atelectasis at the lung bases adj acent to the pleural fluid. There is atherosclerotic vascular calcification. There is large hiatal he rnia. Liver shows no focal defect. Spleen appears normal. There is no evidence of a pancreatic mass. There is no adrenal mass. There is renal atrophy and worse on the right side. There is no hydronephro sis. Abdominal aorta is atheromatous. There is no retroperitoneal adenopathy. There is no mesenteric edema or adenopathy. I see no intestinal wall thickening. There are no dilated loops. There are sigmo id multiple diverticula. There is some free fluid in the cul-de-sac. Latter distends smoothly. There is no inguinal hernia. There is left hip prosthesis. There is subcutaneous edema around the abdomen. There is some spurring in the thoracic and lumbar spine. There is no compression fracture. There is o steopenia. I see no focal bone destruction. Bony pelvis appears intact. IMPRESSION: Pleural effusions and cardiomegaly consistent with congestive heart failure. Basilar atelectasis. Sub cutaneous edema. Renal atrophy. Large hiatal hernia. I see no evidence of metastatic disease. Sigmoid diverticulosis.
--- NOTE | 2018-03-02 19:50 | PN ---
PROGRESS NOTE DATE OF SERVICE: 03/02/2018. REASON FOR FOLLOWUP: ESBL E coli positive culture, possible cystitis. INTERVAL HISTORY: The patient is afebrile. She is more awake and alert. She is breathing comfortably. Denies any chest pain, cough, abdominal pain, diarrhea. EXAMINATION: Blood pressure 133/75 with a pulse of 89, temperature 96.7, she is 95% on room air. General description is an elderly female lying in bed in no distress. Respiratory system: Unlabored breathing. Clear to auscultation anteriorly. Heart S1, S2. Regular rate and rhythm. Abdomen soft, no tenderness. EXTREMITIES: No edema of the feet. LABS: No new labs have been obtained today. was 2.6 yesterday. DIAGNOSTIC IMPRESSION AND PLAN: Patient with positive urine culture with ESBL E coli however no UA was done on that specimen. Repeat UA is not significantly positive. Patient remains still has been incontinence with a question of possible cystitis versus colonization/contamination. She will continue on a short course of Invanz that will be discontinued on discharge. Continue supportive care. MMODL / IJN: [id number] /
[2018-03-02] MEDS: LATANOPROST 0.005% OPHTH DROPS 2.5 ML BTL LEFT EYE SCH (20:16)
[2018-03-02] MEDS: prednisoLONE ACETATE 1% OPHTH DROPS 5 ML BTL BOTH EYES SCH (20:16)
[2018-03-02] MEDS: ALPRAZolam 0.25 MG TAB PO SCH (20:16)
[2018-03-02] MEDS: MELATONIN 3 MG TABLET PO SCH (20:16)
[2018-03-02 22:07] VITALS: RESP 16
[2018-03-03] MEDS: ERTAPENEM 0.5 GM in SODIUM CHLORIDE 0.9% 50 ML IVPB SCH (00:12)
[2018-03-03] MEDS: DEXAMETHASONE SOD PHOSPHATE 4 MG/ML 1 ML VIAL IV SCH ×2 (00:13→07:55)
[2018-03-03] MEDS: LEVOTHYROXINE 25 MCG TAB PO SCH (05:24)
[2018-03-03] MEDS: CINACALCET 30 MG TAB PO SCH (05:24)
[2018-03-03] MEDS: DILTIAZEM ORAL 60 MG TAB PO SCH ×2 (05:25→14:42)
[2018-03-03] MEDS: IPRATROPIUM-ALBUTEROL 3 ML NEB INHALATION SCH ×4 (07:47→15:18)
[2018-03-03] MEDS: ALLOPURINOL 100 MG TAB PO SCH (07:56)
[2018-03-03] MEDS: APIXABAN 2.5 MG TABLET PO SCH (07:57)
[2018-03-03] MEDS: amLODIPine 5 MG TAB PO SCH (07:57)
[2018-03-03] MEDS: FERROUS SULFATE 325 MG TAB PO SCH (07:58)
[2018-03-03] MEDS: FAMOTIDINE 20 MG TAB PO SCH (07:58)
[2018-03-03] MEDS: LORATADINE 10 MG TAB PO SCH (07:59)
[2018-03-03] MEDS: FLUTICASONE 50MCG/SPRAY NASAL 16GM EA NOSTRIL SCH (08:00)
[2018-03-03] MEDS: FUROSEMIDE 40 MG TAB PO SCH (08:00)
[2018-03-03] MEDS: SODIUM BICARBONATE TAB 650 MG TAB PO SCH (08:01)
[2018-03-03] MEDS: METOPROLOL TARTRATE 50 MG TAB PO SCH (08:01)
[2018-03-03] MEDS: SENNOSIDES-DOCUSATE SODIUM 1 EACH TAB PO SCH (08:06)
[2018-03-03 08:37] LABS: Anisocytosis Slight; Basophils % (A) 0 %; Eosinophils % (A) 0 %; HCT 36.1 % (34.0-46.0); Hypochromasia Moderate; Lymphocytes # (A) 0.3 k/uL (1.0-4.8); Lymphocytes % (A) 5 %; MCH 26.5 pg (25.0-35.0); MCHC 30.4 g/dL (31.0-37.0); Mean Platelet Volume 6.3; Monocytes # (A) 0.2 k/uL (0-1.0); Monocytes % (A) 3 %; Neutrophils # (A) 5.3 k/uL (1.3-7.7); Neutrophils % (A) 91 %; Platelet Count 370 k/uL (150-450); RBC 4.15 m/uL (3.80-5.40); RDW 17.3 % (11.5-15.5); WBC 5.8 k/uL (3.8-10.6)
[2018-03-03 08:55] LABS: Albumin 2.7 g/dL (3.5-5.0); Calcium 9.2 mg/dL (8.4-10.2); Potassium 4.5 mmol/L (3.5-5.1); Total Bilirubin 0.2 mg/dL (0.2-1.3); Total Protein 5.3 g/dL (6.3-8.2)
[2018-03-03 12:36] VITALS: BP 138/70; PULSE 92; TEMP 96.7
--- NOTE | 2018-03-03 14:22 | DS ---
DISCHARGE SUMMARY DISCHARGE MEDICATIONS: 1. Invanz 0.5 mg IV piggyback q.24 hours, length of duration as per Dr. Alejandre's recommendation. 2. Lasix 40 mg daily. 3. DuoNeb q.i.d. 4. Zoloft 12.5 mg daily. 5. Sodium bicarbonate 650 b.i.d. 6. Synthroid 25 mcg daily. 7. Fluticasone nasal spray b.i.d. 8. Tylenol 650 q.6 hours p.r.n. for pain. 9. Xanax 0.25 q.h.s. 10.Guaifenesin oral solution 20 mg q.4 hours p.r.n. for cough. 11.Claritin 10 mg daily. 12.Zantac 150 mg p.o. b.i.d. 13.Prednisone acetate, Pred Forte 1% 2 drops both eyes q.h.s. 14.Vitamin D 50,000 units every month. 15.Butrans patch 10 mcg/hour. 16.Transdermal patch once a week on Saturday. 17.Lipitor 10 mg q.h.s. 18.Mag oxide 2400 mg daily. 19.Melatonin 3 mg q.h.s. 20.Ferrous sulfate 325 b.i.d.. 21.Latanoprost. 22.Xalatan eye drops daily. 23.Diamox 250 on Tuesdays at 9 am. 24.Healy 10/324 one every 8 hours p.r.n. for pain. 25.Losartan 100 mg daily. 26.Zyloprim 200 mg daily. 27.Eliquis 2.5 mg b.i.d. 28.Sensipar 30 mg daily. 29.Cardizem 60 mg p.o. t.i.d. 30.Lopressor 50 mg b.i.d. 31.Senokot 1 tab b.i.d. CONDITION: Stable. PROGNOSIS: Guarded. Ambulate as tolerated. HOSPITAL COURSE OF EVENTS: This is an 82-year-old white female who was admitted with slurred speech, altered mental status. Found to have a urinary tract infection with metabolic encephalopathy, was also found to have possible brain mass in the left parietal lobe versus subacute ischemic changes. MRI was not able to be done due to patient's metal in her face. CAT scan abdomen, chest, pelvis was done to rule out cancer. None of it showed any cancer. Patient is still with IV antibiotics and medication was adjusted for end-stage chronic renal disease stage IV. Patient improved her renal function while in the hospital. She had some noncompliance refusing medications and tested at different times, but she will continue with IV antibiotics per Dr. Alejandre's recommendations on discharge and then will follow up with Dr. Dooley at the senior living. No plans for treatment of the brain masses was done per family and patient as she has dementia. She has a large hiatal hernia. She has pulmonary fibrosis and diastolic heart failure and everything was stabilized while in the hospital. Continue with IV antibiotics and she had intermittent slurred speech at different times with will probably her new normal. Will follow up with her at the senior living. MMBRYSONL / MEGHANNN: [id number] /
--- NOTE | 2018-03-03 14:55 | PN ---
PROGRESS NOTE DATE OF SERVICE: 03/03/2018 REASON FOR FOLLOWUP: ESBL E. coli cystitis. INTERVAL HISTORY: The patient is currently afebrile. She is breathing comfortably. Denies having any chest pain, shortness of breath. No cough, no abdominal pain, or any diarrhea. PHYSICAL EXAMINATION: Blood pressure is 132/70 with a pulse of 90, temperature 96.7, she is 95% on room air. General description is an elderly female, lying in bed in no distress. RESPIRATORY SYSTEM: Unlabored breathing, clear to auscultation anteriorly. HEART: S1, S2. Regular rate and rhythm. ABDOMEN: Soft, no tenderness. LABS: Hemoglobin is 11, white count of 5.8. BUN of 15, creatinine 1.8. DIAGNOSTIC IMPRESSION AND PLAN: Patient with ESBL Escherichia coli, positive urine culture more than colonies. No urine within the specimen. Repeat urine positive, possible [QAMARKER] for further antibiotics. Antibiotics will be discontinued. Continue supportive care. MMODL / IJN: [id number] /
--- NOTE | 2018-03-03 14:58 | CDI ---
Last Revision, May 2017 Documentation Clarification Form Date: 03/03/18 From: Lidia Galvan RN Admit Date: 02/24/2018 5:18:00 PM Patient Name: Franko Sawyer Visit Number: [id number] ATTENTION: The Clinical Documentation Specialists (CDI) and [facility] Coding Staff appreciate your assistance in clarifying documentation. Please respond to the clarification below the line at the bottom and electronically sign. The CDI & [facility] Coding staff will review the response and follow-up if needed. Please note: Queries are made part of the Legal Health Record. If you have any questions, please contact the author of this message via ITS. Dr. Pablo Dooley MD, Documentation of COPD is located in the Chart from 02/25 - 02/28. Pt. admitted with possible CVA. History/Risk Factors: pulmonary fibrosis, diastolic CHF, renal insufficiency, paroxysmal a fib, ESBL Clinical Indicators: CXR: Clinical correlation recommended for congestive heart failure and pulmonary edema. Vital Signs on admission: T 97, P 142, R 17, 121/84, 92% RA Lung and Respiratory Assessment: wheezed x 4 Treatment: Nebulizers: Duoneb Steroids: Decadron O2 @ 2 liters PRN Antibiotics: Ceftriaxone IVPB, Ertapenem IVPB, Levaquin PO In your professional opinion, can you please clarify if the above findings and treatment signify any of the following? Acute Exacerbation of Chronic Obstructive Pulmonary Disease (COPD) Acute on Chronic Obstructive Asthma Acute on chronic bronchitis Chronic obstructive pulmonary disease with acute lower respiratory infection Emphysema Other condition, please specify Unable to determine MTDD
[2018-03-03] MEDS ORDERED: ERTAPENEM 0.5 GM in SODIUM CHLORIDE 0.9% 50 ML IVPB ONE (15:00)
--- NOTE | 2018-03-03 15:08 | CDI ---
Documentation Clarification Form Date: 03/03/18 CDS: Lidia Galvan RN Admit Date: 02/10/18 Patient Name: Cony Sawyer ATTENTION: The Clinical Documentation Specialists (CDI) and [facility] Coding Staff appreciate your assistance in clarifying documentation. Please respond to the clarification below the line at the bottom and electronically sign. The CDI & [facility] Coding staff will review the response and follow-up if needed. Please note: Queries are made part of the Legal Health Record. If you have any questions, please contact the author of this message via ITS. Dr. Pablo Dooley MD, A diagnosis of anemia lacks specificity to accurately reflect your patients severity of condition and clarification is needed. Pt. was admitted with possible CVA. History/Risk Factors: pulmonary fibrosis, diastolic CHF, renal insufficiency, paroxysmal a fib, ESBL Clinical indicators: Hemoglobin: 10.3 Hematocrit: 33.1 Anemia is charted in the history throughout the chart Treatment: Daily Feosol PO Daily H&H In order to capture the severity of condition, please clarify the type of anemia and etiology if known: Acute blood loss anemia Iron deficiency anemia Nutritional anemia Anemia of chronic kidney disease Unable to determine Other, please specify MTDD
--- NOTE | 2018-03-03 15:18 | P.PN ---
Subjective Progress Note Date: 03/03/18 Principal diagnosis: Mental Status Changes Still disoriented, no changes noted Objective - Vital Signs Vital signs: Vital Signs Temp 96.7 F L 03/03/18 12:36 Pulse 92 03/03/18 12:36 Resp 16 03/03/18 12:36 BP 138/70 03/03/18 12:36 Pulse Ox 95 03/03/18 12:36 Intake & Output 03/02/18 03/03/18 03/03/18 18:59 06:59 18:59 Intake Total 260 Balance 260 Weight 78.5 kg Intake: Intake, IV Titration 50 Amount Ertapenem 0.5 gm In 50 Sodium Chloride 0.9% 50 ml @ 100 mls/hr IVPB Q24H [facility] Rx#:[id number] Oral 210 Other: Voiding Method Diaper Diaper Diaper Incontinent Incontinent Incontinent # Voids 1 3 - Exam GEN: lethargic, but irritable and easily agitated. - Constitutional General appearance: no acute distress - EENT loss of vision right eye, with atrophied eyeball and scarring of sclera ENT: hearing grossly normal - Neck Neck: no lymphadenopathy Thyroid: bilateral: normal size - Cardiovascular Rhythm: irregularly irregular - Gastrointestinal General gastrointestinal: normal bowel sounds, soft - Integumentary Integumentary: normal - Neurologic right-sided vision loss. Strength in the extremities diminished generally, but symmetric - Musculoskeletal Musculoskeletal: generalized weakness, strength equal bilaterally - Psychiatric confused, poor recall, agitated. Able to follow some commands. - Labs CBC & Chem 7: 03/03/18 07:36 03/03/18 07:36 Labs: Abnormal Lab Results - Last 24 Hours (Table) 03/03/18 03/03/18 Range/Units 07:36 07:36 Hgb 11.0 L (11.4-16.0) gm/dL MCHC 30.4 L (31.0-37.0) g/dL RDW 17.3 H (11.5-15.5) % Lymphocytes # 0.3 L (1.0-4.8) k/uL Chloride 110 H (98-107) mmol/L BUN 50 H (7-17) mg/dL Creatinine 1.98 H (0.52-1.04) mg/dL Glucose 151 H (74-99) mg/dL Total Protein 5.3 L (6.3-8.2) g/dL Albumin 2.7 L (3.5-5.0) g/dL Assessment and Plan Plan: Chest x-ray: report reviewed CT Scan - head: report reviewed Assessment and Plan (1) Brain mass Narrative/Plan: the patient was initially felt to have an ischemic stroke. However subsequent imaging indicates that the left-sided lesion is more likely to be a mass. she has had a noncontrast CAT scan of the brain, which is not very sensitive or specific for a mass. Unfortunately more specific imaging cannot be ordered at this point. Her creatinine is too high to allow contrast study with either CT scan or MRI. MRI without contrast also is not an option, as the patient has some metal from previous surgery in her skull. Therefore at this time we will empirically start steroids, and monitor her response to the same I will also order CT scans of the chest abdomen and pelvis, with oral contrast only. If these show evidence of malignancy, then metastatic disease in the brain becomes more likely. The patient herself, at this time is unable to provide any history, or make decisions. - There is no family at bedside during assessment. - Depending on her response, and additional findings, we will need to discuss with the family Re: Additional investigations especially if invasive procedure such as biopsies are felt to be required - Will go forward with non contrast CT of head as discussed with Primary team today. Current Visit: Yes Status: Acute Code(s): G93.9 - DISORDER OF BRAIN, UNSPECIFIED SNOMED Code(s): 107615172 (2) AVERY (acute kidney injury) Narrative/Plan: nephrology is following. Follow kidney function. Current Visit: No Status: Acute Priority: High Code(s): N17.9 - ACUTE KIDNEY FAILURE, UNSPECIFIED SNOMED Code(s): 09051165 Plan: the patient has multiple other medical problems. Refer to the admitting service and other consultants for management of the above
--- NOTE | 2018-03-03 18:34 | PN ---
PROGRESS NOTE The patient is seen for followup for chronic kidney disease. Her renal function is fairly stable with creatinine actually lower than usual. A CT of the brain with IV contrast is requested by Heme-Onc to rule out any brain lesion. The patient has been refusing medications and IVs. She is currently comfortable. She is not in any acute distress. Blood pressure 126/68. This morning heart rate 84 per minute patient is afebrile. Examination of the heart S1, S2. Examination lungs bilateral breath sounds are heard. Abdomen is soft, nontender. Examination lower extremity shows no significant edema. PROVIDER ENROLLMENT SPECIALIST exam shows patient moving all 4 extremities. LAB: Show sodium 141, potassium 4.5, chloride 110, BUN 50, serum creatinine 1.98, hemoglobin 11.0. ASSESSMENT: 1. Chronic kidney disease and NKF stage IV. Renal function slightly better. The creatinine down to 1.9. Okay to proceed with CTA with IV contrast if needed from oncology standpoint. 2. Chronic kidney disease stage IIIB secondary to nephrosclerosis. 3. Congestive heart failure/volume overload. Currently improved. 4. ESBL E coli urinary tract infection. 5. Acute CVA with possible left parietal lobe mass. CT with IV contrast has been ordered by Oncology. Okay to proceed with it. 6. Anemia. PLAN: May proceed with CT with IV contrast if the patient allows. She will need to continue to maintain outpatient followup. MMODL / IJN: [id number] /
--- NOTE | 2018-03-05 07:36 | DS ---
DISCHARGE SUMMARY ADDENDUM: Please add: DISCHARGE DIAGNOSES: Acute on chronic respiratory failure secondary to pulmonary fibrosis. MMODL / IJN: [id number] /
--- NOTE | 2018-03-05 07:42 | DS ---
DISCHARGE SUMMARY ADDENDUM: Please add: Anemia of chronic disease to the discharge summary. MMODL / IJN: [id number] /
[2018-03-13] MEDS ORDERED: ERGOCALCIFEROL 50,000 UNIT CAP PO SCH (09:00)
== END 2018-03-03 16:15 | DRG 64 ==
LOC: 5MS5E 17:18 → EEVIPCON 17:18
PROVIDERS: ADMIT Family Medicine; ATTEND Family Medicine
DX: I63.9 Cerebral infarction, unspecified (principal); N17.0 Acute kidney failure with tubular necrosis; G93.6 Cerebral edema; J96.20 Acute and chronic respiratory failure, unspecified whether with hypoxia or hypercapnia; I50.33 Acute on chronic diastolic (congestive) heart failure; G93.41 Metabolic encephalopathy; F01.51 Vascular dementia, unspecified severity, with behavioral disturbance; I13.0 Hypertensive heart and chronic kidney disease with heart failure and stage 1 through stage 4 chronic kidney disease, or unspecified chronic kidney disease; N18.4 Chronic kidney disease, stage 4 (severe); E87.2 Acidosis; S06.0X9A Concussion with loss of consciousness of unspecified duration, initial encounter; E87.1 Hypo-osmolality and hyponatremia; I07.1 Rheumatic tricuspid insufficiency; R13.10 Dysphagia, unspecified; J84.10 Pulmonary fibrosis, unspecified; K72.90 Hepatic failure, unspecified without coma; I48.2 Chronic atrial fibrillation; I27.20 Pulmonary hypertension, unspecified; R47.01 Aphasia; J44.9 Chronic obstructive pulmonary disease, unspecified; N30.90 Cystitis, unspecified without hematuria; D63.8 Anemia in other chronic diseases classified elsewhere; R47.1 Dysarthria and anarthria; R40.2363 Coma scale, best motor response, obeys commands, at hospital admission; R40.2143 Coma scale, eyes open, spontaneous, at hospital admission; R40.2243 Coma scale, best verbal response, confused conversation, at hospital admission; F48.2 Pseudobulbar affect; R47.81 Slurred speech; B96.20 Unspecified Escherichia coli [E. coli] as the cause of diseases classified elsewhere; K21.9 Gastro-esophageal reflux disease without esophagitis; E78.5 Hyperlipidemia, unspecified; F32.9 Major depressive disorder, single episode, unspecified; H91.92 Unspecified hearing loss, left ear; E03.9 Hypothyroidism, unspecified; H40.9 Unspecified glaucoma; H54.7 Unspecified visual loss; R32 Unspecified urinary incontinence; Z16.12 Extended spectrum beta lactamase (ESBL) resistance; Z79.01 Long term (current) use of anticoagulants; Z79.890 Hormone replacement therapy; Z79.51 Long term (current) use of inhaled steroids; Z79.899 Other long term (current) drug therapy; Z87.730 Personal history of (corrected) cleft lip and palate; Z97.4 Presence of external hearing-aid; Z90.710 Acquired absence of both cervix and uterus; Z96.652 Presence of left artificial knee joint; Z87.891 Personal history of nicotine dependence; Z87.440 Personal history of urinary (tract) infections; Z87.721 Personal history of (corrected) congenital malformations of ear; Z87.75 Personal history of (corrected) congenital malformations of respiratory system; Z86.19 Personal history of other infectious and parasitic diseases; W19.XXXA Unspecified fall, initial encounter; Z91.14 Patient's other noncompliance with medication regimen; Z91.19 Patient's noncompliance with other medical treatment and regimen; Z80.0 Family history of malignant neoplasm of digestive organs; Z82.61 Family history of arthritis; Z84.1 Family history of disorders of kidney and ureter; Z81.1 Family history of alcohol abuse and dependence; Z81.2 Family history of tobacco abuse and dependence
CPT/HCPCS: 70450; 71046; 71250; 74176; 80048; 80053; 80061; 81001; 82607; 83090; 83735; 83880; 84100; 84443; 85025; 87077; 87086; 87186; 93005; 94640; 94760

== ENCOUNTER 2018-06-09 01:46 | Inpatient (IN) | payer MEDICARE, OTHER ==
[2018-06-09] MEDS ORDERED: FUROSEMIDE 10 MG/ML 4 ML VIAL IV STA (01:59)
--- NOTE | 2018-06-09 02:02 | ED ---
SOB HPI - General Stated Complaint: altered mental status Time Seen by Provider: 06/09/18 01:59 - History of Present Illness Initial Comments: Franko is an 82 yo female brought to the ED via EMS from intermediate facility for altered mental status. Her caregivers at the care facility the patient is supposed to be on oxygen 2-3 L by nasal cannula. She's been agitated unwilling to wear her oxygen finding with caregivers. Patient does have advanced dementia and is usually alert and oriented 2 however she seems to be more agitated and only alert and oriented 1 today. Patient provides no meaningful history. She is agitated and combative with staff. - Related Data Home Medications Medication Instructions Recorded Confirmed Fluticasone Nasal [place] [Flonase 1 spray EA NOSTRIL BID@899,209902/16/1706/09 Nasal [place]] Levothyroxine Sodium [Synthroid] 25 mcg PO DAILY@0600 02/16/17 06/09/18 ALPRAZolam [Xanax] 0.25 mg PO HS@209904/12/17 06/09/18 Buprenorphine [Butrans 10 MCG/HOUR] 1 patch TRANSDERM TU@59904/12/17 06/09/18 Ergocalciferol (Vitamin D2) 50,000 unit PO Q30D 04/12/17 06/09/18 [Vitamin D2] Loratadine [Claritin] 10 mg PO DAILY@0900 04/12/17 06/09/18 guaiFENesin [guaiFENesin Oral 200 mg PO Q4HR PRN 04/12/17 06/09/18 Solution] prednisoLONE ACETATE [Pred Forte 2 drop BOTH EYES HS@209904/12/17 06/09/18 1%] Ferrous Sulfate [Feosol] 325 mg PO BID@00,209909/30/17 06/09/18 Latanoprost [Xalatan 0.005%] 1 drop LEFT EYE HS@209909/30/17 06/09/18 acetaZOLAMIDE [Diamox] 250 mg PO TU@00 09/30/17 06/09/18 HYDROcodone/APAP 5-325MG [Jackson 1 tab PO Q8H PRN 02/05/18 06/09/18 5-325] Apixaban [Eliquis] 2.5 mg PO BID@0900,209902/24/18 06/09/18 Cinacalcet [Sensipar] 30 mg PO DAILY@0602/24/18 06/09/18 Metoprolol Tartrate [Lopressor] 50 mg PO BID@0900,209902/24/18 06/09/18 Diltiazem Cd [Cardizem Cd] 240 mg PO DAILY@0906/09/18 06/09/18 Ensure Clear 1 can PO TID-W/MEALS 06/09/18 06/09/18 Furosemide [Lasix] 40 mg PO DAILY@59906/09/18 06/09/18 Mirtazapine 7.5 mg PO HS@209906/09/18 06/09/18 Sodium Bicarbonate Tab 650 mg PO BID@09,17006/09/18 06/09/18 Previous Rx's Medication Instructions Recorded Acetaminophen Tab [Tylenol] 650 mg PO Q6HR PRN tab 02/20/17 Magnesium Hydroxide [Milk of 2,400 mg PO DAILY PRN ml 04/15/17 Magnesia Concentrate] Ipratropium-Albuterol Nebulize 3 ml INHALATION RT-QID ampul.neb 03/03/18 [Duoneb 0.5 mg-3 mg/3 ml Soln] predniSONE 10 mg PO DAILY #30 tab 03/03/18 Allergies Allergy/AdvReac Type Severity Reaction Status Date / Time No Known Allergies Allergy Verified 06/09/18 06:40 Review of Systems ROS Statement: Those systems with pertinent positive or pertinent negative responses have been documented in the HPI. ROS Other: All systems not noted in ROS Statement are negative. Past Medical History Past Medical History: Heart Failure, COPD, Dementia, GERD/Reflux, Hyperlipidemia , Hypertension, Pneumonia, Renal Disease, Respiratory Disorder, Thyroid Disorder Additional Past Medical History / Comment(s): Pt was born with cleft palate and other physical problems with facial structures including nasal passages and ear canals(has metal ) and festus at bedside states that the ear canals are collapsing. 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 Last Myocardial Infarction Date:: unknown History of Any Multi-Drug Resistant Organisms: ESBL Date of last positivie culture/infection: 05/06/18 MDRO Source:: ESBL URINE Past Surgical History: Bladder Surgery, Hysterectomy, Joint Replacement, Orthopedic Surgery Additional Past Surgical History / Comment(s): Pt has had multiple surgeries for defects affecting mouth, nose and ears, total L knee arthroplasty, bladder sling, fistula L arm.PARTIAL HYSTERECTOMY, PICC LINE-SINCE REMOVED Past Anesthesia/Blood Transfusion Reactions: No Reported Reaction Smoking Status: Former smoker - Past Family History Father Family Medical History: Cancer Additional Family Medical History / Comment(s): Father prior to age 60 yrs with esophageal cancer. He was a smoker and a drinker. Mother Family Medical History: Osteoarthritis (OA), Renal Disease, Rheumatoid Arthritis (RA) Additional Family Medical History / Comment(s): kidney problems, specific type unknown General Exam - General Exam Comments Initial Comments: GENERAL: Demented, in acute respiratory distress HENT: Normocephalic, Atraumatic. EYES: PERRL PULMONARY: audible crackles in all lung jaime CARDIOVASCULAR: Tachycardic, irregularly irregular ABDOMEN: Soft and nontender with normal bowel sounds. SKIN: Pale NEUROLOGIC: Oriented to self MUSCULOSKELETAL: Normal extremities with adequate strength and full range of motion. No lower extremity swelling or edema. No calf tenderness. LYMPHATICS: No significant lymphadenopathy is noted PSYCHIATRIC: Normal psychiatric evaluation. Limitations: no limitations Course Vital Signs 06/09/18 06/09/18 06/09/18 02:14 02:33 03:29 Temperature 97.7 F Pulse Rate 123 H 115 H Pulse Rate [ 123 H Credit And Collection Manager ] Respiratory 28 H 30 H 23 Rate Blood Pressure 166/103 169/99 O2 Sat by Pulse 93 L 95 Oximetry 06/09/18 06/09/18 05:08 06:03 Temperature Pulse Rate 105 H 108 H Pulse Rate [ Credit And Collection Manager ] Respiratory 24 26 H Rate Blood Pressure 156/99 159/96 O2 Sat by Pulse 100 96 Oximetry Medical Decision Making - Medical Decision Making The patient was seen and evaluated history is obtained from EMS and medical record Physical exam there is concern for over congestive heart failure. Patient has audible crackles even without a stethoscope. She appears to be fluid overloaded Patient does have a signed DO NOT RESUSCITATE, therefore we attempted treatment with BiPAP however the patient would not tolerate Labs and imaging were ordered Chest x-ray concerning for overt heart failure Labs with evidence of acute kidney injury suggestive of intravascular fluid deficit despite overt pulmonary fluid overload Patient continues to refuse BiPAP next line we will treat the CHF with Lasix Evidence of urinary tract infection, review of previous microbiology reveals the patient has had ESBL. Appropriate antibiotics ordered Patient care was discussed with her primary care physician Dr. Dooley who accepts admission for altered mental status, UTI, CHF and respiratory distress - Lab Data Result diagrams: 06/09/18 02:10 06/09/18 02:10 Lab Results 06/09/18 06/09/18 06/09/18 Range/Units 02:10 02:10 02:10 WBC 14.1 H (3.8-10.6) k/uL RBC 4.97 (3.80-5.40) m/uL Hgb 12.5 (11.4-16.0) gm/dL Hct 42.4 (34.0-46.0) % MCV 85.2 (80.0-100.0) fL MCH 25.2 (25.0-35.0) pg MCHC 29.6 L (31.0-37.0) g/dL RDW 16.8 H (11.5-15.5) % Plt Count 269 (150-450) k/uL Neutrophils % 91 % Lymphocytes % 3 % Monocytes % 4 % Eosinophils % 0 % Basophils % 0 % Neutrophils # 12.9 H (1.3-7.7) k/uL Lymphocytes # 0.4 L (1.0-4.8) k/uL Monocytes # 0.6 (0-1.0) k/uL Eosinophils # 0.0 (0-0.7) k/uL Basophils # 0.0 (0-0.2) k/uL Hypochromasia Slight Anisocytosis Slight PT (9.0-12.0) sec INR (<1.2) APTT (22.0-30.0) sec Sodium 135 L (137-145) mmol/L Potassium 4.9 (3.5-5.1) mmol/L Chloride 97 L (98-107) mmol/L Carbon Dioxide 26 (22-30) mmol/L Anion Gap 12 mmol/L BUN 60 H (7-17) mg/dL Creatinine 3.48 H (0.52-1.04) mg/dL Est GFR (CKD-EPI)AfAm 14 (>60 ml/min/1.73 sqM) Est GFR (CKD-EPI)NonAf 12 (>60 ml/min/1.73 sqM) Glucose 114 H (74-99) mg/dL Plasma Lactic Acid Kuldip (0.7-2.0) mmol/L Calcium 9.6 (8.4-10.2) mg/dL Magnesium 1.9 (1.6-2.3) mg/dL Total Bilirubin 0.8 (0.2-1.3) mg/dL AST 34 (14-36) U/L ALT 34 (9-52) U/L Alkaline Phosphatase 97 (38-126) U/L Total Creatine Kinase 25 L (30-135) U/L CK-MB (CK-2) 0.6 (0.0-2.4) ng/mL CK-MB (CK-2) Rel Index 2.4 Troponin I 0.033 (0.000-0.034) ng/mL NT-Pro-B Natriuret Pep pg/mL Total Protein 6.7 (6.3-8.2) g/dL Albumin 3.7 (3.5-5.0) g/dL Urine Color Urine Appearance (Clear) Urine pH (5.0-8.0) Ur Specific [place] (1.001-1.035) Urine Protein (Negative) Urine Glucose (UA) (Negative) Urine Ketones (Negative) Urine Blood (Negative) Urine Nitrite (Negative) Urine Bilirubin (Negative) Urine Urobilinogen (<2.0) mg/dL Ur Leukocyte Esterase (Negative) Urine RBC (0-5) /hpf Urine WBC (0-5) /hpf Urine WBC Clumps (None) /hpf 06/09/18 06/09/18 06/09/18 Range/Units 02:10 02:10 02:25 WBC (3.8-10.6) k/uL RBC (3.80-5.40) m/uL Hgb (11.4-16.0) gm/dL Hct (34.0-46.0) % MCV (80.0-100.0) fL MCH (25.0-35.0) pg MCHC (31.0-37.0) g/dL RDW (11.5-15.5) % Plt Count (150-450) k/uL Neutrophils % % Lymphocytes % % Monocytes % % Eosinophils % % Basophils % % Neutrophils # (1.3-7.7) k/uL Lymphocytes # (1.0-4.8) k/uL Monocytes # (0-1.0) k/uL Eosinophils # (0-0.7) k/uL Basophils # (0-0.2) k/uL Hypochromasia Anisocytosis PT (9.0-12.0) sec INR (<1.2) APTT (22.0-30.0) sec Sodium (137-145) mmol/L Potassium (3.5-5.1) mmol/L Chloride (98-107) mmol/L Carbon Dioxide (22-30) mmol/L Anion Gap mmol/L BUN (7-17) mg/dL Creatinine (0.52-1.04) mg/dL Est GFR (CKD-EPI)AfAm (>60 ml/min/1.73 sqM) Est GFR (CKD-EPI)NonAf (>60 ml/min/1.73 sqM) Glucose (74-99) mg/dL Plasma Lactic Acid Kuldip 1.8 (0.7-2.0) mmol/L Calcium (8.4-10.2) mg/dL Magnesium (1.6-2.3) mg/dL Total Bilirubin (0.2-1.3) mg/dL AST (14-36) U/L ALT (9-52) U/L Alkaline Phosphatase (38-126) U/L Total Creatine Kinase (30-135) U/L CK-MB (CK-2) (0.0-2.4) ng/mL CK-MB (CK-2) Rel Index Troponin I (0.000-0.034) ng/mL NT-Pro-B Natriuret Pep 27612 pg/mL Total Protein (6.3-8.2) g/dL Albumin (3.5-5.0) g/dL Urine Color Yellow Urine Appearance Turbid H (Clear) Urine pH 5.5 (5.0-8.0) Ur Specific [place] 1.018 (1.001-1.035) Urine Protein 2+ H (Negative) Urine Glucose (UA) Negative (Negative) Urine Ketones Negative (Negative) Urine Blood Small H (Negative) Urine Nitrite Negative (Negative) Urine Bilirubin Negative (Negative) Urine Urobilinogen <2.0 (<2.0) mg/dL Ur Leukocyte Esterase Large H (Negative) Urine RBC 17 H (0-5) /hpf Urine WBC >182 H (0-5) /hpf Urine WBC Clumps Many H (None) /hpf 06/09/18 Range/Units 02:26 WBC (3.8-10.6) k/uL RBC (3.80-5.40) m/uL Hgb (11.4-16.0) gm/dL Hct (34.0-46.0) % MCV (80.0-100.0) fL MCH (25.0-35.0) pg MCHC (31.0-37.0) g/dL RDW (11.5-15.5) % Plt Count (150-450) k/uL Neutrophils % % Lymphocytes % % Monocytes % % Eosinophils % % Basophils % % Neutrophils # (1.3-7.7) k/uL Lymphocytes # (1.0-4.8) k/uL Monocytes # (0-1.0) k/uL Eosinophils # (0-0.7) k/uL Basophils # (0-0.2) k/uL Hypochromasia Anisocytosis PT 10.5 (9.0-12.0) sec INR 1.0 (<1.2) APTT 25.1 (22.0-30.0) sec Sodium (137-145) mmol/L Potassium (3.5-5.1) mmol/L Chloride (98-107) mmol/L Carbon Dioxide (22-30) mmol/L Anion Gap mmol/L BUN (7-17) mg/dL Creatinine (0.52-1.04) mg/dL Est GFR (CKD-EPI)AfAm (>60 ml/min/1.73 sqM) Est GFR (CKD-EPI)NonAf (>60 ml/min/1.73 sqM) Glucose (74-99) mg/dL Plasma Lactic Acid Kuldip (0.7-2.0) mmol/L Calcium (8.4-10.2) mg/dL Magnesium (1.6-2.3) mg/dL Total Bilirubin (0.2-1.3) mg/dL AST (14-36) U/L ALT (9-52) U/L Alkaline Phosphatase (38-126) U/L Total Creatine Kinase (30-135) U/L CK-MB (CK-2) (0.0-2.4) ng/mL CK-MB (CK-2) Rel Index Troponin I (0.000-0.034) ng/mL NT-Pro-B Natriuret Pep pg/mL Total Protein (6.3-8.2) g/dL Albumin (3.5-5.0) g/dL Urine Color Urine Appearance (Clear) Urine pH (5.0-8.0) Ur Specific [place] (1.001-1.035) Urine Protein (Negative) Urine Glucose (UA) (Negative) Urine Ketones (Negative) Urine Blood (Negative) Urine Nitrite (Negative) Urine Bilirubin (Negative) Urine Urobilinogen (<2.0) mg/dL Ur Leukocyte Esterase (Negative) Urine RBC (0-5) /hpf Urine WBC (0-5) /hpf Urine WBC Clumps (None) /hpf - EKG Data -: EKG Interpreted by Me EKG Comments: EKG obtained at 1:55 AM rhythm is atrial fibrillation rate is 129, there is normal axis, QRS is 72 QTc is 418, there is significant respiratory variation but no acute ST elevations or depressions no evidence of acute extreme air infarction. Disposition Clinical Impression: AVERY (acute kidney injury), Atrial fibrillation with RVR, CHF exacerbation, Urinary tract infection, Dementia Disposition: ADMITTED IP TO THIS HOSP
[2018-06-09 02:46] LABS: Anisocytosis Slight; Basophils % (A) 0 %; Eosinophils % (A) 0 %; HCT 42.4 % (34.0-46.0); HGB 12.5 gm/dL (11.4-16.0); Hypochromasia Slight; Lymphocytes # (A) 0.4 k/uL (1.0-4.8); Lymphocytes % (A) 3 %; MCH 25.2 pg (25.0-35.0); MCHC 29.6 g/dL (31.0-37.0); MCV 85.2 fL (80.0-100.0); Mean Platelet Volume 7.2; Monocytes # (A) 0.6 k/uL (0-1.0); Monocytes % (A) 4 %; Neutrophils # (A) 12.9 k/uL (1.3-7.7); Neutrophils % (A) 91 %; Platelet Count 269 k/uL (150-450); RBC 4.97 m/uL (3.80-5.40); RDW 16.8 % (11.5-15.5); WBC 14.1 k/uL (3.8-10.6)
[2018-06-09 02:57] LABS: Appearance,Urine Turbid (Clear); Bilirubin,Urine Negative (Negative); Blood,Urine Small (Negative); Color,Urine Yellow; Glucose,Urine (UA) Negative (Negative); Ketones,Urine Negative (Negative); Leukocyte Esterase,Urine Large (Negative); Nitrite,Urine Negative (Negative); PH, Urine 5.5 (5.0-8.0); Protein,Urine 2+ (Negative); RBC,Urine 17 /hpf (0-5); Specific Gravity,Urine 1.018 (1.001-1.035); Urobilinogen,Urine <2.0 mg/dL (<2.0); WBC,Urine >182 /hpf (0-5)
[2018-06-09 02:57] LABS: Partial Thromboplastin Time 25.1 sec (22.0-30.0); Prothrombin Time 10.5 sec (9.0-12.0)
[2018-06-09 02:59] LABS: Albumin 3.7 g/dL (3.5-5.0); Calcium 9.6 mg/dL (8.4-10.2); Magnesium 1.9 mg/dL (1.6-2.3); Potassium 4.9 mmol/L (3.5-5.1); Total Bilirubin 0.8 mg/dL (0.2-1.3); Total Protein 6.7 g/dL (6.3-8.2)
--- NOTE | 2018-06-09 02:59 | XR ---
EXAMINATION TYPE: XR chest 1V portable DATE OF EXAM: 06/09/2018 COMPARISON: 03/01/2018 HISTORY: Dyspnea hypoxemia TECHNIQUE: Single frontal view of the chest is obtained. FINDINGS: There is pulmonary edema. Heart is enlarged. Thoracic aorta is atheromatous. There are brynn st leads. There is slight blunting of the costophrenic angles. There are chest leads. IMPRESSION: Congestive heart failure. Patchy pulmonary infiltrates. RDS is possible. Chest appears s lightly worse than last exam.
[2018-06-09 03:20] LABS: Creatine Kinase MB 0.6 ng/mL (0.0-2.4); Troponin I 0.033 ng/mL (0.000-0.034)
[2018-06-09] MEDS ORDERED: PIPERACILLIN-TAZOBACTAM 3.375 GM in SODIUM CHLORIDE 0.9% 100 ML IVPB STA (03:38)
[2018-06-09] MEDS ORDERED: NALOXONE 0.4 MG/ML 1 ML VIAL IV PRN (03:40)
[2018-06-09] MEDS ORDERED: LORazepam 2 MG/ML INJ IV STA (05:33)
[2018-06-09] MEDS: FUROSEMIDE 10 MG/ML 4 ML VIAL IV SCH ×3 (05:45→22:10)
[2018-06-09 07:30] LABS: Creatine Kinase MB 0.6 ng/mL (0.0-2.4)
[2018-06-09] MEDS ORDERED: MAGNESIUM HYDROXIDE 2,400 MG/10 ML CUP PO PRN (09:59)
[2018-06-09] MEDS ORDERED: guaiFENesin SYRUP 100MG/5ML 200 MG/10 ML CUP PO PRN (09:59)
[2018-06-09] MEDS ORDERED: ACETAMINOPHEN TAB 325 MG TAB PO PRN (09:59)
[2018-06-09] MEDS ORDERED: HYDROcodone/APAP 5-325MG 1 EACH TAB PO PRN (09:59)
[2018-06-09] MEDS: IPRATROPIUM-ALBUTEROL 3 ML NEB INHALATION SCH ×3 (12:11→20:23)
[2018-06-09] MEDS: predniSONE 10 MG TAB PO SCH (16:01)
[2018-06-09] MEDS: PIPERACILLIN-TAZOBACTAM 3.375 GM in SODIUM CHLORIDE 0.9% 100 ML IVPB SCH (16:13)
[2018-06-09 16:45] LABS: Creatine Kinase MB 0.8 ng/mL (0.0-2.4); Troponin I 0.038 ng/mL (0.000-0.034)
[2018-06-09] MEDS: SODIUM BICARBONATE TAB 650 MG TAB PO SCH (22:10)
[2018-06-09] MEDS: FERROUS SULFATE 325 MG TAB PO SCH (22:10)
[2018-06-09] MEDS: ALPRAZolam 0.25 MG TAB PO SCH (22:10)
[2018-06-09] MEDS: METOPROLOL TARTRATE 50 MG TAB PO SCH (22:10)
[2018-06-09] MEDS: MIRTAZAPINE 15 MG TAB PO SCH (22:10)
[2018-06-09] MEDS: APIXABAN 2.5 MG TABLET PO SCH (22:10)
[2018-06-09] MEDS: FLUTICASONE 50MCG/SPRAY NASAL 16GM EA NOSTRIL SCH (22:48)
[2018-06-09] MEDS: prednisoLONE ACETATE 1% OPHTH DROPS 5 ML BTL BOTH EYES SCH (22:49)
[2018-06-09] MEDS: LATANOPROST 0.005% OPHTH DROPS 2.5 ML BTL LEFT EYE SCH (22:49)
--- NOTE | 2018-06-10 00:11 | HP ---
HISTORY AND PHYSICAL CHIEF COMPLAINT: An 82-year-old white female came in for altered mental status, on 2 to 3 L oxygen. She was found to have UTI with sepsis and healthcare-acquired pneumonia. She has a history of agitated advanced dementia and a possible brain tumor. HOME MEDICINES: Includes Synthroid, fluticasone, Xanax, Butrans patch, Claritin, vitamin D, Pred Forte, Xalatan, Diamox, Meigs, Eliquis, Sensipar, Lopressor, Cardizem CD, Lasix, mirtazapine, sodium bicarbonate. PAST MEDICAL HISTORY: Heart failure, COPD, dementia, GERD, dyslipidemia, hypertension, pneumonia, renal disease, respiratory disorder, hypothyroidism, hearing aid, deaf, she is blind and glaucoma in the right eye. PAST SURGICAL HISTORY: Bladder surgery, hysterectomy, joint replacement, orthopedic surgery, umbilical surgeries. PHYSICAL EXAM: LUNGS: Show scattered rhonchi in all lung jaime. HEART: Irregular regular rhythm. Tachycardia. ABDOMEN: Soft. SKIN: Dry. NEUROLOGIC: Alert and oriented x3. MUSCULOSKELETAL: Range of motion x4 extremities. PSYCH: She appears anxious, loud, and nervous. OPHTHALMOLOGIC: Pupils equal, round, reactive to light. VITAL SIGNS: Pulse is 115 and 123, respiratory 18 to 30, blood pressure 160/99 to 103, O2 of 93 and 95% on 2 L. ASSESSMENT: 1. Sepsis. 2. Healthcare-acquired pneumonia. 3. Urinary tract infection. 4. Urosepsis. 5. Acute on chronic renal insufficiency. 6. Dehydration. 7. Leukocytosis secondary to above. 8. Atrial fibrillation with rapid ventricular response. PLAN: Continue current treatments with broad-spectrum antibiotics. Await Infectious Disease and Pulmonary consult. Atrial fibrillation with rapid ventricular response will also be treated with medications for atrial fibrillation. MMODL / IJN: [id number] /
[2018-06-10] MEDS: FUROSEMIDE 10 MG/ML 4 ML VIAL IV SCH ×3 (03:31→19:32)
[2018-06-10] MEDS: PIPERACILLIN-TAZOBACTAM 3.375 GM in SODIUM CHLORIDE 0.9% 100 ML IVPB SCH ×2 (05:31→17:21)
[2018-06-10] MEDS: BUPRENORPHINE TRANSDERM SCH (06:28)
[2018-06-10] MEDS: predniSONE 10 MG TAB PO SCH (08:04)
[2018-06-10] MEDS: FERROUS SULFATE 325 MG TAB PO SCH ×2 (08:04→17:21)
[2018-06-10] MEDS: METOPROLOL TARTRATE 50 MG TAB PO SCH ×2 (08:04→19:32)
[2018-06-10] MEDS: acetaZOLAMIDE 250 MG TAB PO SCH (08:04)
[2018-06-10] MEDS: SODIUM BICARBONATE TAB 650 MG TAB PO SCH ×2 (08:04→17:21)
[2018-06-10] MEDS: DILTIAZEM CD 240 MG CAP.ER.24H PO SCH (08:04)
[2018-06-10] MEDS: APIXABAN 2.5 MG TABLET PO SCH ×2 (08:05→19:32)
[2018-06-10] MEDS: LEVOTHYROXINE 25 MCG TAB PO SCH (08:05)
[2018-06-10] MEDS: LORATADINE 10 MG TAB PO SCH (08:05)
[2018-06-10] MEDS: FLUTICASONE 50MCG/SPRAY NASAL 16GM EA NOSTRIL SCH ×2 (08:05→19:33)
[2018-06-10] MEDS: CINACALCET 30 MG TAB PO SCH (08:43)
[2018-06-10] MEDS: IPRATROPIUM-ALBUTEROL 3 ML NEB INHALATION SCH ×4 (09:44→21:06)
--- NOTE | 2018-06-10 10:11 | P.CNPUL ---
History of Present Illness Consult date: 06/10/18 Reason for consult: dyspnea, cough, COPD, pneumonia Chief complaint: Cough shortness of breath and wheezing with brown sputum production History of present illness: 82-year-old female with history of prior CVA with significant aphasia patient has some residual weakness in the extremity a patient is a resident of [facility] care facility she was noted to be more short of breath as well as started having cough with thick purulent sputum production with those problem patient was brought into emergency department for further evaluation has been admitted into the hospital, her admitted chest x-ray suggestive of patchy bilateral infiltrate, both lungs and wall more so on the right side compared to the left side, urine culture and blood culture have been negative, patient is currently being treated with Zosyn, her labs are reviewed, labs white cell count is 14,000 , BUN/creatinine 60 and 3.48 slight worsening from previous renal functions have been noted, Review of Systems All systems: negative Past Medical History Past Medical History: Atrial Fibrillation, Heart Failure, COPD, Dementia, GERD/ Reflux, Hyperlipidemia, Hypertension, Pneumonia, Renal Disease, Respiratory Disorder, Thyroid Disorder Additional Past Medical History / Comment(s): Pt was born with cleft palate and other physical problems with facial structures including nasal passages and ear canals(has metal ) and yan at bedside states that the ear canals are collapsing. 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 Yan states pt may have had a CVA or a brain mass but unable to have MRI d/t metal in ear. Last Myocardial Infarction Date:: unknown History of Any Multi-Drug Resistant Organisms: ESBL Date of last positivie culture/infection: 05/06/18 MDRO Source:: ESBL URINE Past Surgical History: Bladder Surgery, Hysterectomy, Joint Replacement, Orthopedic Surgery Additional Past Surgical History / Comment(s): Pt has had multiple surgeries for defects affecting mouth, nose and ears, total L knee arthroplasty, bladder sling, fistula L arm.PARTIAL HYSTERECTOMY, PICC LINE-SINCE REMOVED, L hip cemented hemiarthroplasty. Past Anesthesia/Blood Transfusion Reactions: No Reported Reaction Smoking Status: Former smoker - Past Family History Father Family Medical History: Cancer Additional Family Medical History / Comment(s): Father prior to age 60 yrs with esophageal cancer. He was a smoker and a drinker. Mother Family Medical History: Osteoarthritis (OA), Renal Disease Additional Family Medical History / Comment(s): kidney problems, specific type unknown Medications and Allergies Home Medications Medication Instructions Recorded Confirmed Type Fluticasone Nasal [place] [Flonase 1 spray EA NOSTRIL BID@0900,209902/16/1706/09 History Nasal [place]] Levothyroxine Sodium [Synthroid] 25 mcg PO DAILY@0600 02/16/17 06/09/18 History Acetaminophen Tab [Tylenol] 650 mg PO Q6HR PRN tab 02/20/17 06/09/18 Rx ALPRAZolam [Xanax] 0.25 mg PO HS@209904/12/17 06/09/18 History Buprenorphine [Butrans 10 MCG/HOUR] 1 patch TRANSDERM TU@59904/12/17 06/09/18 History Ergocalciferol (Vitamin D2) 50,000 unit PO Q30D 04/12/17 06/09/18 History [Vitamin D2] Loratadine [Claritin] 10 mg PO DAILY@89904/12/17 06/09/18 History guaiFENesin [guaiFENesin Oral 200 mg PO Q4HR PRN 04/12/17 06/09/18 History Solution] prednisoLONE ACETATE [Pred Forte 2 drop BOTH EYES HS@209904/12/17 06/09/18 History 1%] Magnesium Hydroxide [Milk of 2,400 mg PO DAILY PRN ml 04/15/17 06/09/18 Rx Magnesia Concentrate] Ferrous Sulfate [Feosol] 325 mg PO BID@00,209909/30/17 06/09/18 History Latanoprost [Xalatan 0.005%] 1 drop LEFT EYE HS@209909/30/17 06/09/18 History acetaZOLAMIDE [Diamox] 250 mg PO TU@0900 09/30/17 06/09/18 History HYDROcodone/APAP 5-325MG [[place] 1 tab PO Q8H PRN 02/05/18 06/09/18 History 5-325] Apixaban [Eliquis] 2.5 mg PO BID@0900,2100 02/24/18 06/09/18 History Cinacalcet [Sensipar] 30 mg PO DAILY@0600 02/24/18 06/09/18 History Metoprolol Tartrate [Lopressor] 50 mg PO BID@0900,2100 02/24/18 06/09/18 History Ipratropium-Albuterol Nebulize 3 ml INHALATION RT-QID ampul.neb 03/03/18 Rx [Duoneb 0.5 mg-3 mg/3 ml Soln] predniSONE 10 mg PO DAILY #30 tab 03/03/18 06/09/18 Rx Diltiazem Cd [Cardizem Cd] 240 mg PO DAILY@0906/09/18 06/09/18 History Ensure Clear 1 can PO TID-W/MEALS 06/09/18 06/09/18 History Furosemide [Lasix] 40 mg PO DAILY@0606/09/18 06/09/18 History Mirtazapine 7.5 mg PO HS@209906/09/18 06/09/18 History Sodium Bicarbonate Tab 650 mg PO BID@0900,1700 06/09/18 06/09/18 History Allergies Allergy/AdvReac Type Severity Reaction Status Date / Time No Known Allergies Allergy Verified 06/09/18 06:40 Physical Exam Vitals: Vital Signs Temp Pulse Pulse Resp BP BP Pulse Ox 06/10/18 09:56 92 94 L 06/10/18 09:44 88 06/10/18 08:00 97.4 F L 117 H 18 184/81 86 L 06/10/18 03:44 104 H 24 154/97 88 L 06/10/18 00:00 104 H 20 162/94 85 L 06/09/18 23:23 81 18 06/09/18 21:35 98.9 F 06/09/18 21:31 100 17 165/90 96 06/09/18 17:02 100 06/09/18 16:51 102 H 06/09/18 16:00 98.1 F 129 H 16 169/95 95 06/09/18 14:41 112 H 06/09/18 13:00 98.1 F 108 H 22 169/96 95 06/09/18 12:19 114 H 06/09/18 12:12 112 H Intake and Output 06/09/18 06/10/18 06/10/18 22:59 06:59 14:59 Intake Total 180 Output Total 300 1000 Balance -300 -1000 180 Intake: Oral 180 Output: Urine 300 1000 Other: Voiding Method Indwelling Catheter Indwelling Catheter Indwelling Catheter Weight 75 kg - Constitutional General appearance: average body habitus, cooperative, disheveled, mild distress - EENT Eyes: anicteric sclerae, EOMI, PERRLA, poor dentition ENT: hard of hearing, normal oropharynx Ears: bilateral: normal - Neck Carotids: bilateral: upstroke normal Thyroid: bilateral: normal size - Respiratory Respiratory: bilateral: CTA, wheezing, prolonged expiration, negative: dullness , rales, rhonchi - Cardiovascular Rhythm: regular Heart sounds: normal: S1, S2 - Gastrointestinal General gastrointestinal: decreased bowel sounds, normal bowel sounds, soft - Neurologic Neurologic: CNII-XII intact - Musculoskeletal Musculoskeletal: gait normal, generalized weakness, strength equal bilaterally - Psychiatric Due to stroke significant speech impairment noted Psychiatric: A&O x's 3, appropriate affect, intact judgment & insight Results - Laboratory Findings CBC and BMP: 06/09/18 02:10 06/09/18 02:10 PT/INR, D-dimer PT 10.5 sec (9.0-12.0) 06/09/18 02:26 INR 1.0 (<1.2) 06/09/18 02:26 Abnormal lab findings: Abnormal Labs 06/09/18 06/09/18 06/09/18 02:10 02:10 02:10 WBC 14.1 H MCHC 29.6 L RDW 16.8 H Neutrophils # 12.9 H Lymphocytes # 0.4 L Sodium 135 L Chloride 97 L BUN 60 H Creatinine 3.48 H Glucose 114 H Total Creatine Kinase 25 L Troponin I Urine Appearance Urine Protein Urine Blood Ur Leukocyte Esterase Urine RBC Urine WBC Urine WBC Clumps 06/09/18 06/09/18 06/09/18 02:25 05:59 05:59 WBC MCHC RDW Neutrophils # Lymphocytes # Sodium Chloride BUN Creatinine Glucose Total Creatine Kinase 21 L Troponin I 0.045 H* Urine Appearance Turbid H Urine Protein 2+ H Urine Blood Small H Ur Leukocyte Esterase Large H Urine RBC 17 H Urine WBC >182 H Urine WBC Clumps Many H 06/09/18 15:25 WBC MCHC RDW Neutrophils # Lymphocytes # Sodium Chloride BUN Creatinine Glucose Total Creatine Kinase 23 L Troponin I 0.038 H* Urine Appearance Urine Protein Urine Blood Ur Leukocyte Esterase Urine RBC Urine WBC Urine WBC Clumps - Diagnostic Findings Chest x-ray: report reviewed, image reviewed (Bilateral diffuse infiltrates are present) Assessment and Plan Assessment: Acute hypoxic respiratory failure Bilateral pneumonia Acute on chronic renal failure, stage III History of CVA UTI Elevated troponins occurred [place] non-ST segment elevated cannot be excluded given that the BNP is elevated associated congestive heart failure remains an issue Plan: Continue Zosyn Agree with cardiovascular evaluation and obtaining echocardiogram Will check a sputum for Gram stain and culture also sent nasopharyngeal swab for influenza A and B Continue breathing treatments We will add IV steroids, and DC oral prednisone Repeat chest x-ray in a.m. Other recommendations pending plan of care as per clinical response of the patient Time with Patient: Greater than 30
--- NOTE | 2018-06-10 12:35 | CONS ---
CONSULTATION Franko is an 82-year-old lady with history of COPD, hypothyroidism, hypertension, renal insufficiency, who presented to hospital with altered mental status and Cardiology had been consulted because of mild elevation in troponin. She is a poor historian. Her BNP is also elevated. She denies chest pain, but has some shortness of breath. PAST MEDICAL HISTORY: Significant for CVA, COPD, atrial fibrillation, dementia, heart failure, hypertension, dyslipidemia. MEDICATIONS: At home included Synthroid Xanax, vitamin D, Claritin, magnesium, Xalatan, Eliquis 2.5 b.i.d., metoprolol 50 b.i.d., DuoNeb, Cardizem CD, Lasix 40 mg daily. ALLERGIES: There are no known drug allergies. FAMILY HISTORY: Negative for premature coronary artery disease. SOCIAL HISTORY: She denies current smoking. REVIEW OF SYSTEMS: HEENT is significant for is confusion. CARDIAC: Significant atrial fibrillation. RESPIRATORY: Shortness of breath. GI: Negative. GENITOURINARY: Negative. ALLERGY/IMMUNOLOGY: Negative. SKIN: Negative. MUSCULOSKELETAL: Significant for arthritis. PSYCHOSOCIAL: Negative. ENDOCRINE: Negative. DERMATOLOGICAL: Negative. CONSTITUTIONAL: Negative. ONCOLOGICAL: Negative. Rest of the system review is not relevant. PHYSICAL EXAM: Patient is afebrile. Heart rate is 100 beats per minute, irregular. Blood pressure is 155/96, respiratory rate is 18. Chest exam reveals diminished air entry at the bases with occasional rhonchi. Heart exam reveals first and second heart sounds. Irregular rhythm. Abdomen is soft. Exam of extremities did reveal trace edema. Peripheral pulses are palpable EKG shows atrial fibrillation with poorly-controlled ventricular rate. ASSESSMENT: 1. Chronic atrial fibrillation with poorly-controlled ventricular rate. 2. Hypertension. 3. Chronic obstructive pulmonary disease. PLAN: I will obtain a 2D echo to document her LV function, resume the Eliquis, use Cardizem CD and metoprolol for rate control. If necessary, go up on the dose of the metoprolol. MMODL / IJN: [id number] /
[2018-06-10] MEDS: ALPRAZolam 0.25 MG TAB PO SCH (19:32)
[2018-06-10] MEDS: MIRTAZAPINE 15 MG TAB PO SCH (19:32)
[2018-06-10] MEDS: prednisoLONE ACETATE 1% OPHTH DROPS 5 ML BTL BOTH EYES SCH (19:33)
[2018-06-10] MEDS: LATANOPROST 0.005% OPHTH DROPS 2.5 ML BTL LEFT EYE SCH (19:33)
--- NOTE | 2018-06-11 03:13 | CONS ---
CONSULTATION DATE OF SERVICE: 06/10/2018. REASON FOR CONSULTATION: Urinary tract infection. HISTORY OF PRESENT ILLNESS: The patient is an 82-year-old female who was brought into the ER at [facility] by the EMS from the [facility] facility for mental status changes. According to the caregiver at that facility, the patient has been agitation and unwilling to be on oxygen. Symptoms had been getting worse from that. No clear history of any fevers, rigors, or chills. No history of any nausea, vomiting, or any diarrhea. With these symptoms, the patient was evaluated by the ER physician on 06/09/2018. On arrival, the patient has been afebrile. She did have a white count of 14.1 on admission. Creatinine was elevated at 3.48. She did have a UA done which was large leukocyte esterase, more than 1 to 2 WBC. Culture now showing gram-negative bacilli, group D Enterococcus. Blood culture has been negative. Infectious Disease was consulted for further recommendation regarding antibiotic therapy. The patient herself is not a very good historian. Most of the information has been obtained from . The RN mentioned that the patient was not placed BiPAP or any oxygen. Did not seem to be but in distress. REVIEW OF SYSTEMS: Could not be reliably obtained. Positive points have been mentioned in HPI. MEDICAL HISTORY: COPD, dementia, hyperlipidemia, hypertension, pneumonia, hypothyroidism. Previous history of PE. PAST SURGICAL HISTORY: Hysterectomy, bladder surgery, left knee arthroplasty. SOCIAL HISTORY: Remote history of smoking. No drinking or drug use. FAMILY HISTORY: Father of esophageal cancer. Mother history of osteoarthritis and rheumatoid arthritis. ALLERGIES: No known drug allergies. MEDICATIONS: Currently on Tylenol, [place], Diamox, DuoNeb, Xanax, Eliquis, Sensipar, Cardizem, iron sulfate, Lasix, Robitussin, Synthroid, Claritin, Lopressor, Remeron, Narcan and Zosyn. PHYSICAL EXAMINATION: Blood pressure 139/75, pulse of 90, temperature 98, she is 100% on 3 L nasal cannula. GENERAL DESCRIPTION: An elderly female, up in the bed in no distress. No tachypnea or accessory muscle of respiration use. HEENT: Shows no pallor. No scleral icterus. Oral mucosa is dry. No pharyngeal erythema. NECK: Trachea central. No thyromegaly. LUNGS: Unlabored breathing with decreased breath sounds in the bases. HEART: S1, S2. Regular rate and rhythm. ABDOMEN: Soft, no tenderness. EXTREMITIES: No edema of the feet. NEUROLOGICAL: The patient is awake, alert, oriented. No agitation was noticed today. LABS: Hemoglobin is 12.5, white count 14.1 with a BUN of 16, creatinine of 3.48. Liver enzymes are normal. UA has been positive. DIAGNOSTIC IMPRESSION AND PLAN: Patient admitted to the hospital with mental status changes, agitation, in this patient who has multiple factors that could be responsible for the underlying symptomatology including possible metabolic with elevated BUN and creatinine and dehydration. She also has significant positive underlying UTI not entirely excluded. However, it was really hard to get any history from this patient as for as urinary symptoms are concerned. PLAN: 1. Gentle IV fluid. 2. Zosyn 3.75 should provide adequate cover for gram-negative urinary tract infection. 3. We will repeat CBC and BMP tomorrow. 4. We will follow up on clinical condition and further adjust medication if needed. Thank you for this consultation. Will follow this patient along with you. MMODL / IJN: [id number] /
[2018-06-11] MEDS ORDERED: FUROSEMIDE 10 MG/ML 4 ML VIAL ONE (03:45)
[2018-06-11] MEDS: FUROSEMIDE 10 MG/ML 4 ML VIAL IV SCH ×3 (04:54→21:23)
[2018-06-11] MEDS: PIPERACILLIN-TAZOBACTAM 3.375 GM in SODIUM CHLORIDE 0.9% 100 ML IVPB SCH (04:55)
[2018-06-11 06:35] LABS: Anisocytosis Slight; Basophils % (A) 0 %; Eosinophils % (A) 0 %; HCT 39.7 % (34.0-46.0); HGB 12.2 gm/dL (11.4-16.0); Hypochromasia Moderate; Lymphocytes # (A) 0.7 k/uL (1.0-4.8); Lymphocytes % (A) 6 %; MCH 26.7 pg (25.0-35.0); MCHC 30.8 g/dL (31.0-37.0); MCV 86.6 fL (80.0-100.0); Mean Platelet Volume 7.6; Monocytes # (A) 0.5 k/uL (0-1.0); Monocytes % (A) 5 %; Neutrophils # (A) 9.5 k/uL (1.3-7.7); Neutrophils % (A) 87 %; Platelet Count 243 k/uL (150-450); RBC 4.58 m/uL (3.80-5.40); RDW 16.8 % (11.5-15.5); WBC 10.8 k/uL (3.8-10.6)
[2018-06-11] MEDS: CINACALCET 30 MG TAB PO SCH (06:37)
[2018-06-11] MEDS: FERROUS SULFATE 325 MG TAB PO SCH ×2 (06:37→16:32)
[2018-06-11] MEDS: LEVOTHYROXINE 25 MCG TAB PO SCH (06:37)
[2018-06-11 06:54] LABS: Calcium 9.2 mg/dL (8.4-10.2); Potassium 3.8 mmol/L (3.5-5.1)
[2018-06-11] MEDS: IPRATROPIUM-ALBUTEROL 3 ML NEB INHALATION SCH ×4 (07:46→21:12)
[2018-06-11] MEDS: LORATADINE 10 MG TAB PO SCH (08:12)
[2018-06-11] MEDS: DILTIAZEM CD 240 MG CAP.ER.24H PO SCH (08:12)
[2018-06-11] MEDS: FLUTICASONE 50MCG/SPRAY NASAL 16GM EA NOSTRIL SCH ×2 (08:12→21:23)
[2018-06-11] MEDS: APIXABAN 2.5 MG TABLET PO SCH ×3 (08:12→22:46)
[2018-06-11] MEDS: METOPROLOL TARTRATE 50 MG TAB PO SCH ×4 (08:12→22:45)
[2018-06-11] MEDS: predniSONE 10 MG TAB PO SCH (08:12)
[2018-06-11] MEDS: SODIUM BICARBONATE TAB 650 MG TAB PO SCH ×2 (08:13→16:32)
--- NOTE | 2018-06-11 08:41 | XR ---
EXAMINATION TYPE: XR chest 1V portable DATE OF EXAM: 06/11/2018 COMPARISON: 06/09/2018 HISTORY: Shortness of breath FINDINGS: There are bilateral pleural effusions with bibasilar infiltrate. There is a diffuse interstitial pa ttern. Heart size stable. No pneumothorax. Diffuse osteopenia. IMPRESSION: 1. Bilateral infiltrate and pleural effusion correlate for CHF versus pulmonary edema. Findings monica mendez.
--- NOTE | 2018-06-11 10:22 | CDI ---
Documentation Clarification Form Date: 06/11/2018 10:11:48 AM From: Lisa AmsoCLAIR, CCDS Admit Date: 06/09/2018 3:42:00 AM Patient Name: Franko Sawyer Visit Number: [id number] Discharge Date: ATTENTION: The Clinical Documentation Specialists (CDI) and [facility] Coding Staff appreciate your assistance in clarifying documentation. Please respond to the clarification below the line at the bottom and electronically sign. The CDI & [facility] Coding staff will review the response and follow-up if needed. Please note: Queries are made part of the Legal Health Record. If you have any questions, please contact the author of this message via ITS. Dr. Pablo Dooley: Per the History & Physical, the patient is diagnosed with sepsis, healthcare acquired pneumonia & UTI. Per the floor nursing note: "pt came from [facility] with parmar catheter in place, may be chronic, history of ESBL in urine, contact precautions initiated." History/Risk Factors: ESBL Urine infection, CKD stage IV, Hypertension with Hypertensive CHF & CKD, Dementia, previous pneumonia, O2 dependent, glaucoma with blindness, previous CVA w/residual aphasia & weakness, from SNF. Clinical Indicators: From SNF with altered mental status, combative & agitated, not wearing O2, Incontinent. Urinalysis: Yellow, Turbid, 2+ protein, small blood, large esterase, RBC 17, WBC >182 Urine culture: Gm Neg Bacilli, Group D enterococcus. Blood culture: negative @ 48 hrs. Lab results: WBC 14.1^, Neut 12.9^, Na 135*, BUN 60^, Cr 3.48^, Elev trops 2/3. Treatment: IV Zosyn, IV Lasix, IV Ativan, Albuterol INH, Blood, sputum & urine cultures & ID, Pulmonary & Cardiology consults. In your professional opinion, can you please clarify the etiology of the UTI, if known? UTI related to Parmar catheter UTI not related to catheter Other condition, please specify Unable to determine If an infective organism is present, please specify cause and effect relationship if applicable. (Last Revision: September 2017) MTDD
--- NOTE | 2018-06-11 10:32 | CDI ---
Documentation Clarification Form Date: 06/11/2018 10:24:58 AM From: Lisa AmosCLAIR, CCDS Admit Date: 06/09/2018 3:42:00 AM Patient Name: Franko Sawyer Visit Number: [id number] Discharge Date: ATTENTION: The Clinical Documentation Specialists (CDI) and [facility] Coding Staff appreciate your assistance in clarifying documentation. Please respond to the clarification below the line at the bottom and electronically sign. The CDI & [facility] Coding staff will review the response and follow-up if needed. Please note: Queries are made part of the Legal Health Record. If you have any questions, please contact the author of this message via ITS. Dr. Pablo Dooley: Per the H & P: the patient is diagnosed with sepsis, healthcare acquired pneumonia & UTI. History/Risk Factors: Previous CVA w/residual aphasia & weakness, from SNF. ESBL Urine infection, CKD stage IV, Hypertension with Hypertensive CHF & CKD, Dementia, previous pneumonia, O2 dependent, glaucoma with blindness, previous CVA w/residual aphasia & weakness, from SNF. Clinical Indicators: From SNF with altered mental status, combative & agitated, not wearing O2, Incontinent. Urinalysis: Yellow, Turbid, 2+ protein, small blood, large esterase, RBC 17, WBC >182 Urine culture: Gm Neg Bacilli, Group D enterococcus. Blood culture: negative @ 48 hrs. Lab results: WBC 14.1^, Neut 12.9^, Na 135*, BUN 60^, Cr 3.48^, Elev trops 2/3. RAD: CXR: CHF, patchy pulmonary infiltrates. RDS possible, worse than previous exam. Treatment: IV Zosyn, IV Lasix, IV Ativan, Albuterol INH. In order to capture the severity of condition, please clarify if the condition possibly signifies and you are treating for: Aspiration Pneumonia, identify if: o Due to solids or liquids Bacterial Pneumonia, specify causal organism (if known) (Blood culture is currently pending final) o Gram Negative Pneumonia o Due to Strep o Due to Staph o Due to E. Coli o Other bacteria (please specify) Viral Pneumonia, specify casual organism (if known) Healthcare Acquired Pneumonia/Pneumonia, unspecified Other, please specify Unable to determine (Last Revision: September 2017) MTDD
--- NOTE | 2018-06-11 10:40 | CDI ---
Documentation Clarification Form Date: 06/11/2018 10:33:04 AM From: Lisa AmosCLAIR, CCDS Admit Date: 06/09/2018 3:42:00 AM Patient Name: Franko Sawyer Visit Number: [id number] Discharge Date: ATTENTION: The Clinical Documentation Specialists (CDI) and [facility] Coding Staff appreciate your assistance in clarifying documentation. Please respond to the clarification below the line at the bottom and electronically sign. The CDI & [facility] Coding staff will review the response and follow-up if needed. Please note: Queries are made part of the Legal Health Record. If you have any questions, please contact the author of this message via ITS. Dr. Ulisses Sutherland: Per the H & P: the patient is diagnosed with sepsis, healthcare acquired pneumonia & UTI. Per the Pulmonary Consult, the patient is also diagnosed with acute respiratory failure. History/Risk Factors: O2 dependent, Previous CVA w/residual aphasia & weakness, from SNF. ESBL Urine infection, CKD stage IV, Hypertension with Hypertensive CHF & CKD, Dementia, previous pneumonia, glaucoma with blindness, previous CVA w /residual aphasia & weakness, from SNF. Clinical Indicators: From SNF with altered mental status, combative & agitated, SOB & not wearing O2, Incontinent. Urinalysis: Positive with positive culture: Gm Neg Bacilli, Group D enterococcus. Blood culture: negative @ 48 hrs. Lab results: WBC 14.1^, Neut 12.9^, Na 135*, Cl 97*, BUN 60^, Cr 3.48^, Elev trops 2/3, RAD: CXR: CHF, patchy pulmonary infiltrates. RDS possible, worse than previous exam. Treatment: IV Zosyn, IV Lasix, IV Ativan, Albuterol INH. In order to capture the severity of condition, please clarify the acuity and the cause of the patient's condition you are treating: Acute hypoxic respiratory failure (documented in 06/10 pulmonary consult) Chronic respiratory failure with specificity Acute on Chronic hypoxic respiratory failure Acute on Chronic respiratory with other specificity Other respiratory disease or type of failure Unable to determine (Last Revision: September 2017) MTDD
--- NOTE | 2018-06-11 10:46 | CDI ---
Documentation Clarification Form Date: 06/11/2018 10:41:14 AM From: Lisa Amos, CLAIR, CCDS Admit Date: 06/09/2018 3:42:00 AM Patient Name: Franko Sawyer Visit Number: [id number] Discharge Date: ATTENTION: The Clinical Documentation Specialists (CDI) and [facility] Coding Staff appreciate your assistance in clarifying documentation. Please respond to the clarification below the line at the bottom and electronically sign. The CDI & [facility] Coding staff will review the response and follow-up if needed. Please note: Queries are made part of the Legal Health Record. If you have any questions, please contact the author of this message via ITS. Dr. Pablo Dooley: Per the H & P: the patient is diagnosed with sepsis, healthcare acquired pneumonia, UTI and advanced dementia. History/Risk Factors: O2 dependent, Previous CVA w/residual aphasia & weakness, from SNF. ESBL Urine infection, CKD stage IV, Hypertension with Hypertensive CHF & CKD, Dementia, previous pneumonia, glaucoma with blindness, previous CVA w /residual aphasia & weakness, from SNF. Clinical Indicators: From SNF with altered mental status, more combative & agitated than usual, SOB & not wearing O2, Incontinent. Urinalysis: Positive with positive culture: Gm Neg Bacilli, Group D enterococcus. Blood culture: negative @ 48 hrs. Lab results: WBC 14.1^, Neut 12.9^, Na 135*, Cl 97*, BUN 60^, Cr 3.48^, Elev trops 2/3, RAD: CXR: CHF, patchy pulmonary infiltrates. RDS possible, worse than previous exam. Treatment: IV Zosyn, IV Lasix, IV Ativan, Albuterol INH. In your professional opinion, can you please clarify the specific type of Encephalopathy, if known? Anoxic Encephalopathy Hypertensive Encephalopathy Metabolic Encephalopathy Septic Encephalopathy Other, please specify Unable to determine (Last Revision: September 2017) MTDD
--- NOTE | 2018-06-11 12:44 | P.PN ---
Subjective Progress Note Date: 06/11/18 6 is an 82-year-old female with history of COPD, hypothyroidism, hypertension, renal insufficiency, hypothyroidism who presented to the hospital with symptoms of altered mental status changes. Cardiology consultation was requested because of abnormality in troponin. Patient was also noted to have a significantly elevated BNP level. BNP 24,800. Patient also noted to have a positive UTI, influenza A and B were negative. Troponin 0.03, 0.04, 0.03. Patient was seen and examined this morning, chest x-ray showed congestive heart failure. She is on IV Lasix and has been diuresing well through the night last night. Her weight today is down 4 kg, she continues to be in atrial fibrillation with a heart rate in the 90s to low 100s, blood pressure 154/88. Objective - Vital Signs Vital signs: Vital Signs Temp 97.3 F L 06/11/18 11:38 Pulse 99 06/11/18 11:38 Resp 20 06/11/18 11:38 BP 154/90 06/11/18 11:38 Pulse Ox 91 L 06/11/18 11:38 Intake & Output 06/10/18 06/11/18 06/11/18 18:59 06:59 18:59 Intake Total 500 322 Output Total 1974 1299 1400 Balance -8235 -1655 -4496 Weight 71 kg Intake: Intake, IV Titration 200 100 Amount Piperacillin-Tazobactam 3 200 100 .375 gm In Sodium Chloride 0.9% 100 ml @ 25 mls/hr IVPB Q12H [facility] Rx# :[id number] Oral 300 222 Output: Urine 1974 1299 1400 Other: Voiding Method Indwelling Catheter Indwelling Catheter Indwelling Catheter # Voids 3 - Exam PHYSICAL EXAMINATION: GENERAL: 82-year-old female in no acute distress at the time of my examination HEENT: Head is atraumatic, normocephalic. Pupils equal, round. Sclera anicteric. Conjunctiva are clear. Mucous membranes of the mouth are moist. Neck is supple. There is elevated jugular venous pressure. No carotid bruit is heard. HEART EXAMINATION: Heart S1 and S2 irregularly irregular a systolic murmur is heard. CHEST EXAMINATION: Revealed decreased air entry to bilateral bases with rales noted to the bases bilaterally. ABDOMEN: Soft, nontender. Bowel sounds are heard. No organomegaly noted. EXTREMITIES: 2+ peripheral pulses with evidence of peripheral edema and no calf tenderness noted. NEUROLOGIC patient is awake, alert and oriented 1 . . - Labs CBC & Chem 7: 06/11/18 05:27 06/11/18 05:27 Labs: Abnormal Lab Results - Last 24 Hours (Table) 06/11/18 06/11/18 Range/Units 05:27 05:27 WBC 10.8 H (3.8-10.6) k/uL MCHC 30.8 L (31.0-37.0) g/dL RDW 16.8 H (11.5-15.5) % Neutrophils # 9.5 H (1.3-7.7) k/uL Lymphocytes # 0.7 L (1.0-4.8) k/uL Carbon Dioxide 31 H (22-30) mmol/L BUN 62 H (7-17) mg/dL Creatinine 3.11 H (0.52-1.04) mg/dL Glucose 122 H (74-99) mg/dL Microbiology - Last 24 Hours (Table) 06/09/18 02:10 Blood Culture - Preliminary Blood No Growth after 48 hours 06/09/18 02:25 Urine Culture - Preliminary Urine,Catheterized Gram Neg Bacilli Group D Enterococcus Assessment and Plan Plan: Assessment and plan #1 chronic atrial fibrillation #2 hypertension #3 COPD #4 congestive heart failure, LV function unknown #5 UTI #6 sepsis #7 acute renal insufficiency Plan We will continue with current dose of IV Lasix. Continue to monitor intake and output along with daily weights and daily lytes BUN and creatinine. Patient has also been initiated on antibiotics. She is on Eliquis for anticoagulation, we will increase her dose of metoprolol to 50 mg 3 times a day for more optimal heart rate control. DNP note has been reviewed, I agree with a documented findings and plan of care. Patient was seen and examined.
--- NOTE | 2018-06-11 15:49 | PN ---
PROGRESS NOTE SUBJECTIVE: White female admitted to the hospital with community-acquired pneumonia, urinary tract infection, sepsis, COPD, hypothyroidism, renal insufficiency. BNP was [address]25 and she has influenza A and B have been negative. Troponins are negative x3. She has history of atrial fibrillation. Heart rates in the 90s to low 100s. Blood pressure 154/90. She gives appropriate answers and kind of confused at times. Heart is S1, S2. Lungs are clear. Abdomen is soft. Extremities: No cyanosis or clubbing. She has 2+ to 3+ pitting edema. ASSESSMENT: 1. Chronic atrial fibrillation. 2. Urinary tract infection. 3. Community-acquired pneumonia. 4. Chronic obstructive pulmonary disease. 5. Hypertension. 6. Acute renal insufficiency. 7. Sepsis. 8. Possible heart failure. Await Cardiology, Infectious Disease. She is on Eliquis for anticoagulation. Metoprolol has been increased to 50 t.i.d. Await further cultures and IV antibiotics to be decided upon. MMODL / IJN: [id number] /
--- NOTE | 2018-06-11 16:28 | PN ---
PROGRESS NOTE DATE OF SERVICE: 06/11/2018 REASON FOR FOLLOWUP: Urinary tract infection. INTERVAL HISTORY: The patient is currently afebrile. She is breathing comfortably. Remains pleasantly confused, but no agitation has been noticed. No nausea, no vomiting. No abdominal pain or any diarrhea. PHYSICAL EXAMINATION: Her blood pressure 154/90 with a pulse of 99, temperature 97.3. She is 91% on room air. General description is an elderly female lying in bed in no distress. RESPIRATORY SYSTEM: Unlabored breathing. Clear to auscultation anteriorly. HEART: S1, S2. Regular rate and rhythm. ABDOMEN: Soft. No tenderness. LABS: Hemoglobin 12.2, white count 10.8, BUN of 62, creatinine 3.11. DIAGNOSTIC IMPRESSION AND PLAN: Patient admitted to hospital with mental status changes, likely multifactorial. This patient did have a component of UTI; urine now showing any ESBL E coli with small colony of Enterococcus faecalis. We will discontinue the Zosyn, start the patient on Invanz 500 mg daily to cover for the UTI, and watch her clinical course closely. Continue with supportive care. MMODL / IJN: [id number] /
[2018-06-11] MEDS: ERTAPENEM 0.5 GM in SODIUM CHLORIDE 0.9% 50 ML IVPB SCH (16:32)
--- NOTE | 2018-06-11 18:59 | ECHOF ---
Referral Reason:chf MEASUREMENTS -------- HEIGHT: 160.0 cm WEIGHT: 70.8 kg BP: RVIDd: 2.4 cm (< 3.3) IVSd: 1.3 cm (0.6 - 1.1) LVIDd: 3.8 cm (3.9 - 5.3) LVPWd: 1.2 cm (0.6 - 1.1) IVSs: 1.7 cm LVIDs: 2.4 cm LVPWs: 1.6 cm LA Diam: 3.3 cm (2.7 - 3.8) Ao Diam: 2.6 cm (2.0 - 3.7) LA Diam: 3.3 cm (2.7 - 3.8) FINDINGS -------- Sinus rhythm. Limited Study Pt. combative, test stopped. The left ventricular size is normal. There is mild concentric left ventricular hypertrophy. Overa ll left ventricular systolic function is normal with, an EF between 55 - 60 %. The right ventricle is normal in size. The left atrial size is normal. The right atrial size is normal. CONCLUSIONS -------- 1. Limited Study Pt. combative, test stopped. 2. The left ventricular size is normal. 3. There is mild concentric left ventricular hypertrophy. 4. Overall left ventricular systolic function is normal with, an EF between 55 - 60 %. 5. The right ventricle is normal in size. 6. The left atrial size is normal. 7. The right atrial size is normal. [employer]: Cuca Izquierdo RDCS
[2018-06-11] MEDS: MIRTAZAPINE 15 MG TAB PO SCH ×2 (21:22→22:46)
[2018-06-11] MEDS: ALPRAZolam 0.25 MG TAB PO SCH ×2 (21:22→22:46)
[2018-06-11] MEDS: prednisoLONE ACETATE 1% OPHTH DROPS 5 ML BTL BOTH EYES SCH (21:23)
[2018-06-11] MEDS: LATANOPROST 0.005% OPHTH DROPS 2.5 ML BTL LEFT EYE SCH (21:23)
[2018-06-12] MEDS: FUROSEMIDE 10 MG/ML 4 ML VIAL IV SCH ×3 (04:32→21:51)
[2018-06-12] MEDS: FERROUS SULFATE 325 MG TAB PO SCH ×2 (06:02→15:39)
[2018-06-12] MEDS: LEVOTHYROXINE 25 MCG TAB PO SCH (06:02)
[2018-06-12] MEDS: CINACALCET 30 MG TAB PO SCH (06:02)
--- NOTE | 2018-06-12 07:03 | P.PN ---
Subjective Progress Note Date: 06/11/18 (Late entry note) Principal diagnosis: Acute on chronic hypoxic respiratory failure, history of prior stroke, healthcare associated pneumonia, acute on chronic renal failure, 06/11/2018, patient seen eval examined during the rounds still have ongoing intermittent cough congestion patient remains on broad-spectrum antibiotics patient has issues with keeping the oxygen on, labs reviewed medications reviewed care plan discussed with the staff at length, the chest x-ray continue show by basilar infiltrate and small effusion with interstitial edema 82-year-old female with history of prior CVA with significant aphasia patient has some residual weakness in the extremity a patient is a resident of [facility] she was noted to be more short of breath as well as started having cough with thick purulent sputum production with those problem patient was brought into emergency department for further evaluation has been admitted into the hospital, her admitted chest x-ray suggestive of patchy bilateral infiltrate, both lungs and wall more so on the right side compared to the left side, urine culture and blood culture have been negative, patient is currently being treated with Zosyn, her labs are reviewed, labs white cell count is 14,000 , BUN/creatinine 60 and 3.48 slight worsening from previous renal functions have been noted, Objective - Vital Signs Vital signs: Vital Signs Temp 98.4 F 06/12/18 04:00 Pulse 87 06/12/18 04:00 Resp 19 06/12/18 04:00 BP 171/86 06/12/18 04:00 Pulse Ox 90 L 06/12/18 04:00 Intake & Output 06/11/18 06/11/18 06/12/18 06:59 18:59 06:59 Intake Total 622 Output Total 1300 1400 1150 Balance -6600 -013 -7740 Weight 71 kg 71 kg 72.5 kg Intake: Intake, IV Titration 100 Amount Piperacillin-Tazobactam 3 100 .375 gm In Sodium Chloride 0.9% 100 ml @ 25 mls/hr IVPB Q12H [facility] Rx# :[id number] Oral 522 Output: Urine 1300 1400 1150 Other: Voiding Method Indwelling Catheter Indwelling Catheter Indwelling Catheter # Voids 3 - Exam - Constitutional General appearance: average body habitus, cooperative, disheveled, mild distress - EENT Eyes: anicteric sclerae, EOMI, PERRLA, poor dentition ENT: hard of hearing, normal oropharynx Ears: bilateral: normal - Neck Carotids: bilateral: upstroke normal Thyroid: bilateral: normal size - Respiratory Respiratory: bilateral: CTA, wheezing, prolonged expiration, negative: dullness , rales, rhonchi - Cardiovascular Rhythm: regular Heart sounds: normal: S1, S2 - Gastrointestinal General gastrointestinal: decreased bowel sounds, normal bowel sounds, soft - Neurologic Neurologic: CNII-XII intact - Musculoskeletal Musculoskeletal: gait normal, generalized weakness, strength equal bilaterally - Psychiatric Due to stroke significant speech impairment noted Psychiatric: A&O x's one to 2, appropriate affect, - Labs CBC & Chem 7: 06/11/18 05:27 06/11/18 05:27 Labs: Abnormal Lab Results - Last 24 Hours (Table) 06/11/18 Range/Units 05:27 WBC 10.8 H (3.8-10.6) k/uL MCHC 30.8 L (31.0-37.0) g/dL RDW 16.8 H (11.5-15.5) % Neutrophils # 9.5 H (1.3-7.7) k/uL Lymphocytes # 0.7 L (1.0-4.8) k/uL Microbiology - Last 24 Hours (Table) 06/09/18 02:10 Blood Culture - Preliminary Blood No Growth after 72 hours 06/09/18 02:25 Urine Culture - Final Urine,Catheterized Escherichia coli Enterococcus faecalis Assessment and Plan Assessment: Acute hypoxic respiratory failure Bilateral pneumonia, aspiration related/healthcare associated pneumonia Acute on chronic renal failure, stage III History of CVA UTI, polymicrobial associated with the E. coli and enterococcus, E. coli appears to be ESBL, would recommend ID consultation Elevated troponins occurred MS non-ST segment elevated cannot be excluded given that the BNP is elevated associated congestive heart failure remains an issue Plan: Continue Zosyn Agree with cardiovascular evaluation and obtaining echocardiogram Reviewed sputum and influenza A and B reports, both negative Continue breathing treatments Continue IV steroids Reviewed chest x-ray Other recommendations pending plan of care as per clinical response of the patient Time with Patient: Greater than 30
--- NOTE | 2018-06-12 07:06 | P.PN ---
Subjective Progress Note Date: 06/12/18 Principal diagnosis: Acute on chronic hypoxic respiratory failure, history of prior stroke, healthcare associated pneumonia, acute on chronic renal failure, [place] 2018, patient seen eval reexamined during the rounds clinically patient has been out much change, continued to have a respiratory issues and pulling of secretion back of the throat, patient has been a no code, patient does not keep the oxygen on, care plan discussed with the staff at length would continue supportive care overall long-term prognosis poor 06/11/2018, patient seen eval examined during the rounds still have ongoing intermittent cough congestion patient remains on broad-spectrum antibiotics patient has issues with keeping the oxygen on, labs reviewed medications reviewed care plan discussed with the staff at length, the chest x-ray continue show by basilar infiltrate and small effusion with interstitial edema 82-year-old female with history of prior CVA with significant aphasia patient has some residual weakness in the extremity a patient is a resident of [facility] she was noted to be more short of breath as well as started having cough with thick purulent sputum production with those problem patient was brought into emergency department for further evaluation has been admitted into the hospital, her admitted chest x-ray suggestive of patchy bilateral infiltrate, both lungs and wall more so on the right side compared to the left side, urine culture and blood culture have been negative, patient is currently being treated with Zosyn, her labs are reviewed, labs white cell count is 14,000 , BUN/creatinine 60 and 3.48 slight worsening from previous renal functions have been noted, Objective - Vital Signs Vital signs: Vital Signs Temp 98.4 F 06/12/18 04:00 Pulse 87 06/12/18 04:00 Resp 19 06/12/18 04:00 BP 171/86 06/12/18 04:00 Pulse Ox 90 L 06/12/18 04:00 Intake & Output 06/11/18 06/12/18 06/12/18 18:59 06:59 18:59 Intake Total 622 Output Total 1400 1150 Balance -778 -1150 Weight 71 kg 72.5 kg Intake: Intake, IV Titration 100 Amount Piperacillin-Tazobactam 3 100 .375 gm In Sodium Chloride 0.9% 100 ml @ 25 mls/hr IVPB Q12H [facility] Rx# :[id number] Oral 522 Output: Urine 1400 1150 Other: Voiding Method Indwelling Catheter Indwelling Catheter - Exam - Constitutional General appearance: average body habitus, cooperative, disheveled, mild distress - EENT Eyes: anicteric sclerae, EOMI, PERRLA, poor dentition ENT: hard of hearing, normal oropharynx Ears: bilateral: normal - Neck Carotids: bilateral: upstroke normal Thyroid: bilateral: normal size - Respiratory Respiratory: bilateral: CTA, wheezing, prolonged expiration, negative: dullness , rales, rhonchi - Cardiovascular Rhythm: regular Heart sounds: normal: S1, S2 - Gastrointestinal General gastrointestinal: decreased bowel sounds, normal bowel sounds, soft - Neurologic Neurologic: CNII-XII intact - Musculoskeletal Musculoskeletal: gait normal, generalized weakness, strength equal bilaterally - Psychiatric Due to stroke significant speech impairment noted Psychiatric: A&O x's one to 2, appropriate affect, - Labs CBC & Chem 7: 06/11/18 05:27 06/11/18 05:27 Labs: Abnormal Lab Results - Last 24 Hours (Table) 06/11/18 Range/Units 05:27 WBC 10.8 H (3.8-10.6) k/uL MCHC 30.8 L (31.0-37.0) g/dL RDW 16.8 H (11.5-15.5) % Neutrophils # 9.5 H (1.3-7.7) k/uL Lymphocytes # 0.7 L (1.0-4.8) k/uL Microbiology - Last 24 Hours (Table) 06/09/18 02:10 Blood Culture - Preliminary Blood No Growth after 72 hours 06/09/18 02:25 Urine Culture - Final Urine,Catheterized Escherichia coli Enterococcus faecalis Assessment and Plan Assessment: Acute hypoxic respiratory failure Bilateral pneumonia, aspiration related/healthcare associated pneumonia Acute on chronic renal failure, stage III History of CVA UTI, polymicrobial associated with the E. coli and enterococcus, E. coli appears to be ESBL, you broad-spectrum antibiotics Elevated troponins occurred DE non-ST segment elevated cannot be excluded given that the BNP is elevated associated congestive heart failure remains an issue Plan: Continue Invanz, now patient is off of Zosyn Agree with cardiovascular evaluation and obtaining echocardiogram Reviewed sputum and influenza A and B reports, both negative Continue breathing treatments IV steroids Reviewed chest x-ray Other recommendations pending plan of care as per clinical response of the patient, overall long-term prognosis poor Time with Patient: Greater than 30
[2018-06-12] MEDS: IPRATROPIUM-ALBUTEROL 3 ML NEB INHALATION SCH ×4 (07:07→20:34)
[2018-06-12 07:32] LABS: Anisocytosis Slight; HCT 42.2 % (34.0-46.0); Hypochromasia Moderate; MCH 26.5 pg (25.0-35.0); MCHC 30.8 g/dL (31.0-37.0); MCV 86.2 fL (80.0-100.0); Mean Platelet Volume 7.1; Platelet Count 312 k/uL (150-450); RDW 16.9 % (11.5-15.5)
[2018-06-12] MEDS: methylPREDNISolone SOD SUCCI 40 MG/ML 1 ML VIAL IV SCH ×2 (09:16→21:52)
[2018-06-12] MEDS: APIXABAN 2.5 MG TABLET PO SCH ×3 (09:17→23:16)
[2018-06-12] MEDS: DILTIAZEM CD 240 MG CAP.ER.24H PO SCH (09:17)
[2018-06-12] MEDS: SODIUM BICARBONATE TAB 650 MG TAB PO SCH (09:17)
[2018-06-12] MEDS: LORATADINE 10 MG TAB PO SCH (09:17)
[2018-06-12] MEDS: METOPROLOL TARTRATE 50 MG TAB PO SCH ×3 (09:17→23:16)
[2018-06-12] MEDS ORDERED: FUROSEMIDE 10 MG/ML 4 ML VIAL IV STA (09:19)
[2018-06-12] MEDS: ERTAPENEM 0.5 GM in SODIUM CHLORIDE 0.9% 50 ML IVPB SCH (09:29)
[2018-06-12] MEDS: FLUTICASONE 50MCG/SPRAY NASAL 16GM EA NOSTRIL SCH ×2 (09:29→21:52)
--- NOTE | 2018-06-12 12:45 | P.PN ---
Subjective Progress Note Date: 06/12/18 This is an 82-year-old female with history of COPD, hypothyroidism, hypertension , renal insufficiency, hypothyroidism who presented to the hospital with symptoms of altered mental status changes. Cardiology consultation was requested because of abnormality in troponin. Patient was also noted to have a significantly elevated BNP level. BNP 24,800. Patient also noted to have a positive UTI, influenza A and B were negative. Troponin 0.03, 0.04, 0.03. Patient was seen and examined this morning, chest x-ray showed congestive heart failure. She is on IV Lasix and has been diuresing well through the night last night. Her weight today is down 4 kg, she continues to be in atrial fibrillation with a heart rate in the 90s to low 100s, blood pressure 154/88. 06/12/2018 Patient seen and examined this morning, continues to have a productive cough. Blood pressure 160/90 with a heart rate of 102, 87% on 5 L of oxygen. Blood cell count 14.0, hemoglobin 13, platelet count 312. We will increase dose of metoprolol to 100 mg twice a day for blood pressure and heart rate control. Objective - Vital Signs Vital signs: Vital Signs Temp 97.7 F 06/12/18 08:20 Pulse 102 H 06/12/18 10:49 Resp 18 06/12/18 10:28 BP 161/93 06/12/18 08:20 Pulse Ox 92 L 06/12/18 10:48 Intake & Output 06/11/18 06/12/18 06/12/18 18:59 06:59 18:59 Intake Total 622 Output Total 1400 1150 Balance -778 -1150 Weight 71 kg 72.5 kg Intake: Intake, IV Titration 100 Amount Piperacillin-Tazobactam 3 100 .375 gm In Sodium Chloride 0.9% 100 ml @ 25 mls/hr IVPB Q12H [facility] Rx# :[id number] Oral 522 Output: Urine 1400 1150 Other: Voiding Method Indwelling Catheter Indwelling Catheter - Exam PHYSICAL EXAMINATION: GENERAL: 82-year-old female in no acute distress at the time of my examination HEENT: Head is atraumatic, normocephalic. Pupils equal, round. Sclera anicteric. Conjunctiva are clear. Mucous membranes of the mouth are moist. Neck is supple. There is elevated jugular venous pressure. No carotid bruit is heard. HEART EXAMINATION: Heart S1 and S2 irregularly irregular a systolic murmur is heard. CHEST EXAMINATION: Revealed decreased air entry to bilateral bases with rales noted to the bases bilaterally. ABDOMEN: Soft, nontender. Bowel sounds are heard. No organomegaly noted. EXTREMITIES: 2+ peripheral pulses with evidence of peripheral edema and no calf tenderness noted. NEUROLOGIC patient is awake, alert and oriented 1 . . - Labs CBC & Chem 7: 06/12/18 07:02 06/11/18 05:27 Labs: Abnormal Lab Results - Last 24 Hours (Table) 06/12/18 Range/Units 07:02 WBC 14.0 H (3.8-10.6) k/uL MCHC 30.8 L (31.0-37.0) g/dL RDW 16.9 H (11.5-15.5) % Microbiology - Last 24 Hours (Table) 06/09/18 02:25 Urine Culture - Final Urine,Catheterized Escherichia coli Enterococcus faecalis 06/09/18 02:10 Blood Culture - Preliminary Blood No Growth after 72 hours Assessment and Plan Plan: Assessment and plan #1 chronic atrial fibrillation #2 hypertension #3 COPD #4 congestive heart failure, LV function unknown #5 UTI #6 sepsis #7 acute renal insufficiency Plan We will continue with current dose of IV Lasix. Continue to monitor intake and output along with daily weights and daily lytes BUN and creatinine. Patient has also been initiated on antibiotics. She is on Eliquis for anticoagulation, we will increase her dose of metoprolol to and 100 mg by mouth twice a day for more optimal heart rate control. DNP note has been reviewed, I agree with a documented findings and plan of care. Patient was seen and examined.
--- NOTE | 2018-06-12 14:13 | CONS ---
CONSULTATION REASON FOR CONSULT: Renal failure. HISTORY OF PRESENT ILLNESS: The patient is an 82-year-old female with history of chronic kidney disease, NKF stage IV with baseline creatinine about 1.862 mg/dL. Recently, her creatinine has been more elevated at about 2.9 in February of 2018 but did come down to 1.9 mg/dL on 02/09/2018. Patient also has underlying dementia. She is currently a NO CODE, NO INTUBATION Code status. She was admitted to the hospital with the complaints of weakness, not feeling well and worsening of mentation. Patient is currently being treated for CHF and volume overload and is maintained on IV Lasix. She also has an underlying urinary tract infection with E coli and enterococcus faecalis. The serum creatinine was 3.48 on 06/09 and it is down to 3.1 today. Patient has a chronic indwelling Urban catheter. She has had good urine output. PAST MEDICAL HISTORY: Significant for CKD, stage IV, dementia. Previous history of urinary tract infection, hypothyroidism, gastroesophageal reflux disease, hyperlipidemia, history of CHF, hearing loss, recurrent urinary tract infections. PAST SURGICAL HISTORY: Hysterectomy, bladder surgery, left knee arthroplasty, cyst in the left arm which is nonfunctional, hysterectomy. SOCIAL HISTORY: Negative for smoking, drug abuse or alcohol abuse. Patient is a former smoker. She resides at an extended care facility. MEDICATIONS: At home prior to admission included Flonase, Synthroid, Xanax, vitamin D, Claritin, iron, Eliquis, Sensipar, Lopressor, Cardizem, Lasix, sodium bicarb. Patient had been on prednisone at one time. ALLERGIES: None. REVIEW OF SYSTEMS: No evidence of ongoing diarrhea, nausea, or vomiting. The patient is refusing to wear oxygen. Mentation remains impaired. PHYSICAL EXAMINATION: Currently patient is comfortable. She is awake. She is not in any acute distress. She is pleasantly confused. Blood pressure was 161/93, heart rate 102 per minute, patient is afebrile. Examination of the heart, S1, S2. Examination of the lungs, bilateral breath sounds are heard. Abdomen is soft, nontender. Examination of the lower extremities shows chronic skin changes, chronic edema is noted, 1+ bilaterally seems to have decreased as there is significantly dimpling of the skin seen. RN CARDIAC REHAB exam, patient is moving all 4 extremities. LABS: Show sodium 141, potassium 3.8, chloride of 98, CO2 is 31, BUN 62, serum creatinine 3.1, hemoglobin 12.4 g/dL. UA showed WBCs more than 182, 2+ protein. Urine culture is growing E coli and enterococcus faecalis. ASSESSMENT: 1. Acute kidney injury secondary to cardiorenal syndrome, currently improving. Patient is being diuresed. No nephrotoxic agents on board at this time. 2. Chronic kidney disease, stage IV secondary to nephrosclerosis with baseline creatinine of about 2 mg/dL. 3. Congestive heart failure, acute on top of chronic, mainly diastolic, ejection fraction of 50%-55% on echocardiogram in February of 2018. 4. CKD mineral bone disorder with previous history of hypercalcemia, maintained on Sensipar, which we can continue. PLAN: Continue with IV Lasix. Repeat labs in a.m. Continue to avoid nephrotoxic agents. Thank you for the consultation. Will continue to follow the patient with you during her hospitalization. MMODL / IJN: [id number] /
[2018-06-12] MEDS: ALPRAZolam 0.25 MG TAB PO SCH ×2 (21:50→23:16)
[2018-06-12] MEDS: MIRTAZAPINE 15 MG TAB PO SCH ×2 (21:51→23:16)
[2018-06-12] MEDS: prednisoLONE ACETATE 1% OPHTH DROPS 5 ML BTL BOTH EYES SCH (21:52)
[2018-06-12] MEDS: LATANOPROST 0.005% OPHTH DROPS 2.5 ML BTL LEFT EYE SCH (21:52)
--- NOTE | 2018-06-12 23:37 | PN ---
PROGRESS NOTE DATE OF SERVICE: 06/12/2018. REASON FOR FOLLOWUP: ESBL E coli urinary tract infection. INTERVAL HISTORY: The patient is afebrile. The patient was noticed to be hypoxic this morning. The patient has been refusing the non-rebreather for supplemental oxygen. She has been fighting to take it off. No nausea or vomiting has been noticed. No diarrhea per the nursing staff. The patient is unable to provide reliable history. EXAMINATION: Blood pressure is 182/93 with a pulse of 104, temperature of 98.3, she is 89% on room air. GENERAL DESCRIPTION: An elderly female lying in bed in no distress. RESPIRATORY SYSTEM: Unlabored breathing with decreased breath sounds in the base. No wheeze. HEART: S1, S2. Regular rate and rhythm. ABDOMEN: Soft, no tenderness. LABS: Hemoglobin is 13, white count of 14,000. Urine with ESBL E coli and Enterococcus faecalis. DIAGNOSTIC IMPRESSION AND PLAN: Patient with ESBL E coli urinary tract infection for which the patient is currently covered with Invanz to continue for now, watching her clinical course closely. Overall prognosis is guarded. Continue supportive care. MMODL / IJN: [id number] /
[2018-06-13] MEDS: FUROSEMIDE 10 MG/ML 4 ML VIAL IV SCH ×3 (04:15→19:42)
[2018-06-13] MEDS: LEVOTHYROXINE 25 MCG TAB PO SCH (05:25)
[2018-06-13] MEDS: FERROUS SULFATE 325 MG TAB PO SCH ×2 (05:25→17:47)
[2018-06-13] MEDS: CINACALCET 30 MG TAB PO SCH (05:25)
[2018-06-13 05:43] LABS: Glucose,Whole Blood 128 mg/dL (75-99)
[2018-06-13] MEDS: IPRATROPIUM-ALBUTEROL 3 ML NEB INHALATION SCH ×4 (07:13→20:59)
[2018-06-13 07:18] LABS: Anisocytosis Slight; HCT 45.6 % (34.0-46.0); HGB 13.9 gm/dL (11.4-16.0); Hypochromasia Moderate; MCH 26.1 pg (25.0-35.0); MCHC 30.5 g/dL (31.0-37.0); MCV 85.5 fL (80.0-100.0); Mean Platelet Volume 6.7; Platelet Count 304 k/uL (150-450); RBC 5.34 m/uL (3.80-5.40); RDW 16.7 % (11.5-15.5); WBC 5.4 k/uL (3.8-10.6)
[2018-06-13 07:46] LABS: Calcium 9.3 mg/dL (8.4-10.2); Potassium 3.6 mmol/L (3.5-5.1)
[2018-06-13] MEDS: methylPREDNISolone SOD SUCCI 40 MG/ML 1 ML VIAL IV SCH ×2 (07:52→19:42)
[2018-06-13] MEDS: SODIUM BICARBONATE TAB 650 MG TAB PO SCH (07:53)
[2018-06-13] MEDS: DILTIAZEM CD 240 MG CAP.ER.24H PO SCH (07:53)
[2018-06-13] MEDS: FLUTICASONE 50MCG/SPRAY NASAL 16GM EA NOSTRIL SCH ×2 (07:53→19:42)
[2018-06-13] MEDS: ERTAPENEM 0.5 GM in SODIUM CHLORIDE 0.9% 50 ML IVPB SCH (07:53)
[2018-06-13] MEDS: METOPROLOL TARTRATE 50 MG TAB PO SCH ×2 (07:53→19:43)
[2018-06-13] MEDS: APIXABAN 2.5 MG TABLET PO SCH ×2 (07:53→19:42)
[2018-06-13] MEDS: LORATADINE 10 MG TAB PO SCH (07:54)
--- NOTE | 2018-06-13 09:19 | CDI ---
Documentation Clarification Form Date: 06/11/2018 10:11:00 AM From: Lisa AmosCLAIR, CCDS Admit Date: 06/09/2018 3:42:00 AM Patient Name: Franko Sawyer Visit Number: [id number] Discharge Date: ATTENTION: The Clinical Documentation Specialists (CDI) and [facility] Coding Staff appreciate your assistance in clarifying documentation. Please respond to the clarification below the line at the bottom and electronically sign. The CDI & [facility] Coding staff will review the response and follow-up if needed. Please note: Queries are made part of the Legal Health Record. If you have any questions, please contact the author of this message via ITS. Dr. Jazmyn Alejandre: Per the History & Physical, the patient is diagnosed with sepsis, healthcare acquired pneumonia & UTI. Per the floor nursing note: "pt came from [facility] with parmar catheter in place, may be chronic, history of ESBL in urine, contact precautions initiated." History/Risk Factors: ESBL Urine infection, CKD stage IV, Hypertension with Hypertensive CHF & CKD, Dementia, previous pneumonia, O2 dependent, glaucoma with blindness, previous CVA w/residual aphasia & weakness, from SNF. Clinical Indicators: From SNF with altered mental status, combative & agitated, not wearing O2, Incontinent. Urinalysis: Yellow, Turbid, 2+ protein, small blood, large esterase, RBC 17, WBC >182 Urine culture: Gm Neg Bacilli, Group D enterococcus. Blood culture: negative @ 48 hrs. Lab results: WBC 14.1^, Neut 12.9^, Na 135*, BUN 60^, Cr 3.48^, Elev trops 2/3. Treatment: IV Zosyn, IV Lasix, IV Ativan, Albuterol INH. In your professional opinion, can you please clarify the etiology of the UTI, if known? UTI related to Parmar catheter UTI not related to catheter Other condition, please specify Unable to determine If an infective organism is present, please specify cause and effect relationship if applicable. (Last Revision: September 2017) MTDD
--- NOTE | 2018-06-13 11:29 | PN ---
PROGRESS NOTE Franko is an 82-year-old lady with history of COPD, hypertension, renal insufficiency, who is admitted to hospital because of mental status changes, has elevated troponin and BNP for which Cardiology has been consulted. This morning she is still appears confused. PHYSICAL EXAMINATION: On exam, heart rate is 90 beats per minute. Blood pressure 148/80. Chest exam reveals diminished air entry at the bases. Heart exam reveals first and second heart sounds. No gallop. Examination of the extremities reveals 1+ edema. Peripheral pulses are felt. LABS: Labs show a hemoglobin of 13.9, BUN is 63, creatinine is 2.5. ASSESSMENT: 1. Chronic atrial fibrillation. 2. Hypertension. 3. Chronic obstructive pulmonary disease. 4. Sepsis. 5. Acute exacerbation of chronic diastolic heart failure. PLAN: Will continue with the Leonor Lundberg CD, IV Lasix that the patient is currently on. MMODL / IJN: [id number] /
[2018-06-13 11:41] LABS: Glucose,Whole Blood 185 mg/dL (75-99)
[2018-06-13 12:08] LABS: Hemoglobin A1C 5.8 % (4.0-6.0)
--- NOTE | 2018-06-13 15:39 | P.PN ---
Subjective Progress Note Date: 06/13/18 Principal diagnosis: Acute on chronic hypoxic respiratory failure, history of prior stroke, healthcare associated pneumonia, acute on chronic renal failure, 06/13/2018, patient seen eval examined during the rounds she has refused the utilization of oxygen, he still have intermittent congestion and pulling of secretions into the throat,, patient has been swallowing pills fairly okay, June 12 2018, patient seen eval reexamined during the rounds clinically patient has been out much change, continued to have a respiratory issues and pulling of secretion back of the throat, patient has been a no code, patient does not keep the oxygen on, care plan discussed with the staff at length would continue supportive care overall long-term prognosis poor 06/11/2018, patient seen eval examined during the rounds still have ongoing intermittent cough congestion patient remains on broad-spectrum antibiotics patient has issues with keeping the oxygen on, labs reviewed medications reviewed care plan discussed with the staff at length, the chest x-ray continue show by basilar infiltrate and small effusion with interstitial edema 82-year-old female with history of prior CVA with significant aphasia patient has some residual weakness in the extremity a patient is a resident of [facility] facility she was noted to be more short of breath as well as started having cough with thick purulent sputum production with those problem patient was brought into emergency department for further evaluation has been admitted into the hospital, her admitted chest x-ray suggestive of patchy bilateral infiltrate, both lungs and wall more so on the right side compared to the left side, urine culture and blood culture have been negative, patient is currently being treated with Zosyn, her labs are reviewed, labs white cell count is 14,000 , BUN/creatinine 60 and 3.48 slight worsening from previous renal functions have been noted, Objective - Vital Signs Vital signs: Vital Signs Temp 97.8 F 06/13/18 12:00 Pulse 83 06/13/18 12:00 Resp 18 06/13/18 12:00 BP 169/68 06/13/18 12:00 Pulse Ox 91 L 06/13/18 12:00 Intake & Output 06/12/18 06/13/18 06/13/18 18:59 06:59 18:59 Intake Total 170 50 Output Total 825 5860 900 Balance -021 -2289 -652 Weight 68 kg Intake: Intake, IV Titration 50 50 Amount Ertapenem 0.5 gm In 50 50 Sodium Chloride 0.9% 50 ml @ 100 mls/hr IVPB DAILY [facility] Rx#:[id number] Oral 120 Output: Urine 825 1350 900 Other: Voiding Method Indwelling Catheter Indwelling Catheter Indwelling Catheter # Voids 300 - Exam - Constitutional General appearance: average body habitus, cooperative, disheveled, mild distress - EENT Eyes: anicteric sclerae, EOMI, PERRLA, poor dentition ENT: hard of hearing, normal oropharynx Ears: bilateral: normal - Neck Carotids: bilateral: upstroke normal Thyroid: bilateral: normal size - Respiratory Respiratory: bilateral: CTA, wheezing, prolonged expiration, negative: dullness , rales, rhonchi - Cardiovascular Rhythm: regular Heart sounds: normal: S1, S2 - Gastrointestinal General gastrointestinal: decreased bowel sounds, normal bowel sounds, soft - Neurologic Neurologic: CNII-XII intact - Musculoskeletal Musculoskeletal: gait normal, generalized weakness, strength equal bilaterally - Psychiatric Due to stroke significant speech impairment noted Psychiatric: A&O x's one to 2, appropriate affect, - Labs CBC & Chem 7: 06/13/18 06:30 06/13/18 06:30 Labs: Abnormal Lab Results - Last 24 Hours (Table) 06/13/18 06/13/18 06/13/18 Range/Units 05:42 06:30 06:30 MCHC 30.5 L (31.0-37.0) g/dL RDW 16.7 H (11.5-15.5) % Carbon Dioxide 33 H (22-30) mmol/L BUN 63 H (7-17) mg/dL Creatinine 2.55 H (0.52-1.04) mg/dL Glucose 139 H (74-99) mg/dL POC Glucose (mg/dL) 128 H (75-99) mg/dL 06/13/18 Range/Units 11:14 MCHC (31.0-37.0) g/dL RDW (11.5-15.5) % Carbon Dioxide (22-30) mmol/L BUN (7-17) mg/dL Creatinine (0.52-1.04) mg/dL Glucose (74-99) mg/dL POC Glucose (mg/dL) 185 H (75-99) mg/dL Microbiology - Last 24 Hours (Table) 06/09/18 02:10 Blood Culture - Preliminary Blood No Growth after 96 hours Assessment and Plan Assessment: Acute hypoxic respiratory failure Bilateral pneumonia, aspiration related/healthcare associated pneumonia Acute on chronic renal failure, stage III History of CVA UTI, polymicrobial associated with the E. coli and enterococcus, E. coli appears to be ESBL, you broad-spectrum antibiotics Elevated troponins occurred MA non-ST segment elevated cannot be excluded given that the BNP is elevated associated congestive heart failure remains an issue Plan: Continue Invanz, now patient is off of Zosyn Agree with cardiovascular evaluation and obtaining echocardiogram Reviewed sputum and influenza A and B reports, both negative Continue breathing treatments IV steroids Reviewed chest x-ray Other recommendations pending plan of care as per clinical response of the patient, overall long-term prognosis poor Time with Patient: Greater than 30
--- NOTE | 2018-06-13 17:26 | PN ---
PROGRESS NOTE Patient is seen for followup for acute kidney injury on top of chronic kidney disease. She does have underlying dementia and has been confused. Currently patient is being treated for CHF and is being diuresed. Renal function has been improving. PHYSICAL EXAMINATION: On examination today, blood pressure is 144/85, heart rate 85 per minute. She is afebrile. EXAMINATION OF THE HEART: S1, S2. EXAMINATION OF LUNGS: Bilateral breath sounds are heard. ABDOMEN: Soft, non-tender. Examination of lower extremities shows chronic skin changes, chronic edema bilaterally. [employer] exam is grossly intact. LABS: Sodium of 142, potassium 3.6, BUN 63, serum creatinine 2.5, hemoglobin 13.9 g/dL. ASSESSMENT: 1. Acute kidney injury, mainly cardiorenal, currently improving. Patient is maintained on IV diuretics. Serum creatinine continues to decrease. 2. Chronic kidney disease, stage IV, secondary to nephrosclerosis with baseline creatinine about 2 mg/dL. 3. Congestive heart failure, mainly diastolic, acute on top of chronic with ejection fraction of 50% to 55% on echocardiogram in February of 2018. 4. Chronic kidney disease mineral bone disorder with previous history of hypercalcemia, maintained on Sensipar, which we will continue. 5. Urinary tract infection with urine culture growing Escherichia coli and Enterococcus faecalis. PLAN: Continue Lasix. Repeat labs in a.m. Encourage increased oral intake. MMODL / IJN: [id number] /
[2018-06-13 17:29] LABS: Glucose,Whole Blood 146 mg/dL (75-99)
[2018-06-13] MEDS: ALPRAZolam 0.25 MG TAB PO SCH (19:42)
[2018-06-13] MEDS: LATANOPROST 0.005% OPHTH DROPS 2.5 ML BTL LEFT EYE SCH (19:42)
[2018-06-13] MEDS: MIRTAZAPINE 15 MG TAB PO SCH (19:43)
[2018-06-13] MEDS: prednisoLONE ACETATE 1% OPHTH DROPS 5 ML BTL BOTH EYES SCH (19:55)
[2018-06-13 21:25] LABS: Glucose,Whole Blood 192 mg/dL (75-99)
--- NOTE | 2018-06-14 02:29 | PN ---
PROGRESS NOTE DATE OF SERVICE: 06/13/2018 REASON FOR FOLLOWUP: ESBL E coli, catheter associated urinary tract infection. INTERVAL HISTORY: The patient is afebrile. The patient remains to be pleasantly confused. No agitation has been noticed. No nausea, no vomiting. No abdominal pain or diarrhea. PHYSICAL EXAMINATION: Blood pressure is 156/92 with a pulse of 100, temperature 97.4. She is 90% on room air. GENERAL DESCRIPTION: An elderly female lying in bed in no distress. RESPIRATORY SYSTEM: Unlabored breathing, clear to auscultation anteriorly. HEART: S1, S2. Regular rate and rhythm. ABDOMEN: Soft, no tenderness. LABS: White count 5.4, BUN of 63, creatinine is 2.5. Blood culture has been negative. DIAGNOSTIC IMPRESSION AND PLAN: Patient with catheter associated urinary tract infection, urine culture positive for ESBL E coli, Enterococcus faecalis. Patient is currently covered with Invanz to continue for now and continue supportive care. MMODL / IJN: [id number] /
[2018-06-14] MEDS: FUROSEMIDE 10 MG/ML 4 ML VIAL IV SCH ×3 (03:41→20:58)
[2018-06-14 05:52] LABS: Glucose,Whole Blood 135 mg/dL (75-99)
[2018-06-14] MEDS: LEVOTHYROXINE 25 MCG TAB PO SCH (06:41)
[2018-06-14] MEDS: FERROUS SULFATE 325 MG TAB PO SCH ×2 (06:41→18:35)
[2018-06-14] MEDS: CINACALCET 30 MG TAB PO SCH (06:41)
[2018-06-14 07:36] LABS: Anisocytosis Slight; Basophils % (A) 0 %; Eosinophils % (A) 0 %; HCT 43.3 % (34.0-46.0); HGB 13.4 gm/dL (11.4-16.0); Hypochromasia Slight; Lymphocytes # (A) 0.4 k/uL (1.0-4.8); Lymphocytes % (A) 4 %; MCH 26.3 pg (25.0-35.0); MCHC 30.9 g/dL (31.0-37.0); MCV 85.1 fL (80.0-100.0); Monocytes # (A) 0.4 k/uL (0-1.0); Monocytes % (A) 4 %; Neutrophils # (A) 8.1 k/uL (1.3-7.7); Neutrophils % (A) 90 %; Platelet Count 317 k/uL (150-450); RBC 5.09 m/uL (3.80-5.40); RDW 16.7 % (11.5-15.5)
[2018-06-14 07:57] LABS: Calcium 9.4 mg/dL (8.4-10.2)
[2018-06-14 08:19] LABS: Potassium 4.1 mmol/L (3.5-5.1)
[2018-06-14] MEDS: IPRATROPIUM-ALBUTEROL 3 ML NEB INHALATION SCH ×4 (09:14→20:23)
[2018-06-14] MEDS: ERTAPENEM 0.5 GM in SODIUM CHLORIDE 0.9% 50 ML IVPB SCH (09:41)
[2018-06-14] MEDS: METOPROLOL TARTRATE 50 MG TAB PO SCH ×2 (09:42→20:58)
[2018-06-14] MEDS: methylPREDNISolone SOD SUCCI 40 MG/ML 1 ML VIAL IV SCH ×2 (09:42→20:57)
[2018-06-14] MEDS: FLUTICASONE 50MCG/SPRAY NASAL 16GM EA NOSTRIL SCH ×2 (09:43→22:25)
[2018-06-14] MEDS: APIXABAN 2.5 MG TABLET PO SCH ×2 (09:43→20:58)
[2018-06-14] MEDS: LORATADINE 10 MG TAB PO SCH (09:43)
[2018-06-14] MEDS: SODIUM BICARBONATE TAB 650 MG TAB PO SCH (09:43)
--- NOTE | 2018-06-14 11:14 | P.PN ---
Subjective Patient is seen in follow-up for acute kidney injury on chronic kidney disease. Patient has chronic kidney disease stage IV with baseline creatinine near 2 secondary to nephrosclerosis and cardiorenal syndrome. Patient has history of diastolic CHF. Currently maintained on Lasix 40 mg IV 3 times daily. She is nonoliguric. Weight trending down. She is also being treated for UTI. Urine cultures positive for E. coli and enterococcus. Patient is not a reliable historian. Vital signs are stable. General: The patient appeared well nourished and normally developed. HEENT: Head exam is unremarkable. Neck is without jugular venous distension. LUNGS: Breath sounds decreased. Scattered rhonchi. HEART: Rate and Rhythm are regular. First and second heart sounds normal. No murmurs, rubs or gallops. ABDOMEN: Abdominal exam reveals normal bowel sounds. Non-tender and non- distended. No evidence of peritonitis. EXTREMITITES: 1+ edema. Objective - Vital Signs Vital signs: Vital Signs Temp 97.9 F 06/14/18 08:02 Pulse 80 06/14/18 08:02 Resp 16 06/14/18 08:02 BP 170/93 06/14/18 08:02 Pulse Ox 96 06/14/18 08:02 Intake & Output 06/13/18 06/14/18 06/14/18 18:59 06:59 18:59 Intake Total 770 300 255 Output Total 1200 800 Balance -430 -500 255 Weight 67.5 kg Intake: IV 55 normal saline 55 Intake, IV Titration 50 Amount Ertapenem 0.5 gm In 50 Sodium Chloride 0.9% 50 ml @ 100 mls/hr IVPB DAILY [facility] Rx#:[id number] Oral 720 300 200 Output: Urine 1200 800 Other: Voiding Method Indwelling Catheter Indwelling Catheter # Bowel Movements 1 - Labs CBC & Chem 7: 06/14/18 06:53 06/14/18 06:53 Labs: Abnormal Lab Results - Last 24 Hours (Table) 06/13/18 06/13/18 06/13/18 Range/Units 11:14 17:08 21:24 MCHC (31.0-37.0) g/dL RDW (11.5-15.5) % Neutrophils # (1.3-7.7) k/uL Lymphocytes # (1.0-4.8) k/uL Carbon Dioxide (22-30) mmol/L BUN (7-17) mg/dL Creatinine (0.52-1.04) mg/dL Glucose (74-99) mg/dL POC Glucose (mg/dL) 185 H 146 H 192 H (75-99) mg/dL 06/14/18 06/14/18 06/14/18 Range/Units 05:50 06:53 06:53 MCHC 30.9 L (31.0-37.0) g/dL RDW 16.7 H (11.5-15.5) % Neutrophils # 8.1 H (1.3-7.7) k/uL Lymphocytes # 0.4 L (1.0-4.8) k/uL Carbon Dioxide 35 H (22-30) mmol/L BUN 78 H (7-17) mg/dL Creatinine 2.30 H (0.52-1.04) mg/dL Glucose 145 H (74-99) mg/dL POC Glucose (mg/dL) 135 H (75-99) mg/dL Microbiology - Last 24 Hours (Table) 06/09/18 02:10 Blood Culture - Preliminary Blood No Growth after 120 hours Assessment and Plan Plan: Assessment: 1. Nonoliguric acute kidney injury mostly prerenal secondary to cardiorenal syndrome. Creatinine down to 2.3 today. 2. Chronic kidney disease stage IV with basic creatinine near 2 secondary to nephrosclerosis and cardiorenal syndrome. 3. Diastolic CHF. 4. Volume overload. 5. UTI with urine culture positive for ESBL E. coli and enterococcus maintained on antibiotics. 6. History of hypercalcemia maintain on Sensipar. 7. Hypertension with chronic kidney disease. Blood pressures high. Partially due to IV steroids. Plan: Maintain Lasix 40 mg IV 3 times daily. Discontinue oral bicarb. Avoid nephrotoxins. Add hydralazine 10 mg IV every 4 hours as needed for systolic blood pressure greater than 160. Repeat electrolytes in the morning.
--- NOTE | 2018-06-14 11:26 | PN ---
PROGRESS NOTE SUBJECTIVE: An 82-year-old white female who appears to be improving from sepsis, UTI, CHF. Mentation slowly improving. She is sitting up in bed. CARDIOVASCULAR: S1, S2. LUNGS: Clear. NEUROLOGY: Alert and oriented x0. She is admitted with sepsis, UTI, CHF. Remains on broad-spectrum antibiotics with Ertapenem. White count is 9, BUN is 78, creatinine is 2.3, which is greatly improved. Her acute tubular necrosis, improving. UTI is improving. Her mentation is improving. Possible discharge home in the next couple days. MMODL / IJN: [id number] /
[2018-06-14] MEDS: DILTIAZEM CD 240 MG CAP.ER.24H PO SCH (12:17)
[2018-06-14 12:25] LABS: Glucose,Whole Blood 238 mg/dL (75-99)
[2018-06-14 16:58] LABS: Glucose,Whole Blood 214 mg/dL (75-99)
[2018-06-14 20:09] LABS: Glucose,Whole Blood 212 mg/dL (75-99)
[2018-06-14] MEDS: MIRTAZAPINE 15 MG TAB PO SCH (20:58)
[2018-06-14] MEDS: ALPRAZolam 0.25 MG TAB PO SCH (20:59)
--- NOTE | 2018-06-14 21:27 | PN ---
PROGRESS NOTE Admitted with sepsis, UTI, CHF, dementia, brain mass. She is has some compliance with her oxygen. She has been not wear oxygen level varies from mid 90s down to 80s into 70s. She is on broad-spectrum antibiotics for UTI. Her breathing appears to be fairly stable. Cardiovascular: S1, S2. Lungs scattered rhonchi and wheeze. Hematology 2+ edema. ASSESSMENT: 1. Urinary tract infection. 2. Metabolic encephalopathy. 3. Sepsis. 4. Dementia. 5. Brain mass. 6. Congestive heart failure. 7. Chronic obstructive pulmonary disease. 8. O2 dependent. Possible back to rehab center on Saturday or Saturday after cultures obtained for the UTI and antibiotics were arranged and her breathing improves. MMODL / IJN: [id number] /
[2018-06-14] MEDS: LATANOPROST 0.005% OPHTH DROPS 2.5 ML BTL LEFT EYE SCH (22:25)
[2018-06-14] MEDS: prednisoLONE ACETATE 1% OPHTH DROPS 5 ML BTL BOTH EYES SCH (22:25)
[2018-06-15] MEDS: hydrALAZINE HCL 20 MG/ML 1 ML VIAL IVP PRN (00:47)
[2018-06-15] MEDS: FUROSEMIDE 10 MG/ML 4 ML VIAL IV SCH ×3 (04:33→22:01)
[2018-06-15 07:29] LABS: Glucose,Whole Blood 140 mg/dL (75-99)
[2018-06-15] MEDS: methylPREDNISolone SOD SUCCI 40 MG/ML 1 ML VIAL IV SCH ×2 (07:32→22:00)
[2018-06-15] MEDS: FLUTICASONE 50MCG/SPRAY NASAL 16GM EA NOSTRIL SCH ×2 (07:32→22:01)
[2018-06-15] MEDS: LEVOTHYROXINE 25 MCG TAB PO SCH (07:33)
[2018-06-15] MEDS: APIXABAN 2.5 MG TABLET PO SCH ×2 (07:33→22:01)
[2018-06-15] MEDS: METOPROLOL TARTRATE 50 MG TAB PO SCH ×2 (07:33→22:00)
[2018-06-15] MEDS: FERROUS SULFATE 325 MG TAB PO SCH ×2 (07:33→15:40)
[2018-06-15] MEDS: CINACALCET 30 MG TAB PO SCH (07:33)
[2018-06-15] MEDS: LORATADINE 10 MG TAB PO SCH (07:33)
[2018-06-15] MEDS: DILTIAZEM CD 240 MG CAP.ER.24H PO SCH (07:33)
[2018-06-15] MEDS: ERTAPENEM 0.5 GM in SODIUM CHLORIDE 0.9% 50 ML IVPB SCH (08:00)
[2018-06-15 08:10] LABS: Calcium 9.6 mg/dL (8.4-10.2); Magnesium 2.1 mg/dL (1.6-2.3); Potassium 4.2 mmol/L (3.5-5.1)
[2018-06-15] MEDS: IPRATROPIUM-ALBUTEROL 3 ML NEB INHALATION SCH ×4 (08:17→21:06)
--- NOTE | 2018-06-15 09:56 | P.PN ---
Subjective Progress Note Date: 06/14/18 (late entry note) Principal diagnosis: Acute on chronic hypoxic respiratory failure, history of prior stroke, healthcare associated pneumonia, acute on chronic renal failure, 06/14/18, patient seen eval examined during the rounds clinically overall not much change patient has been intermittently using oxygen still have intermittent cough congestion severity is secretion slightly improved hemodynamic status stable care plan discussed with the staff at length given the current situation would recommend to continue current plan of care and follow clinical course closely 06/13/2018, patient seen eval examined during the rounds she has refused the utilization of oxygen, he still have intermittent congestion and pulling of secretions into the throat,, patient has been swallowing pills fairly okay, June 12 2018, patient seen eval reexamined during the rounds clinically patient has been out much change, continued to have a respiratory issues and pulling of secretion back of the throat, patient has been a no code, patient does not keep the oxygen on, care plan discussed with the staff at length would continue supportive care overall long-term prognosis poor 06/11/2018, patient seen eval examined during the rounds still have ongoing intermittent cough congestion patient remains on broad-spectrum antibiotics patient has issues with keeping the oxygen on, labs reviewed medications reviewed care plan discussed with the staff at length, the chest x-ray continue show by basilar infiltrate and small effusion with interstitial edema 82-year-old female with history of prior CVA with significant aphasia patient has some residual weakness in the extremity a patient is a resident of [facility] she was noted to be more short of breath as well as started having cough with thick purulent sputum production with those problem patient was brought into emergency department for further evaluation has been admitted into the hospital, her admitted chest x-ray suggestive of patchy bilateral infiltrate, both lungs and wall more so on the right side compared to the left side, urine culture and blood culture have been negative, patient is currently being treated with Zosyn, her labs are reviewed, labs white cell count is 14,000 , BUN/creatinine 60 and 3.48 slight worsening from previous renal functions have been noted, Objective - Vital Signs Vital signs: Vital Signs Temp 96.9 F L 06/15/18 07:20 Pulse 103 H 06/15/18 07:20 Resp 16 06/15/18 07:20 BP 194/97 06/15/18 07:20 Pulse Ox 95 06/15/18 07:20 Intake & Output 06/14/18 06/15/18 06/15/18 18:59 06:59 18:59 Intake Total 255 200 Output Total 575 875 Balance -320 -675 Intake: IV 55 normal saline 55 Oral 200 200 Output: Urine 575 875 Other: Voiding Method Indwelling Catheter Indwelling Catheter Indwelling Catheter - Exam - Constitutional General appearance: average body habitus, cooperative, disheveled, mild distress - EENT Eyes: anicteric sclerae, EOMI, PERRLA, poor dentition ENT: hard of hearing, normal oropharynx Ears: bilateral: normal - Neck Carotids: bilateral: upstroke normal Thyroid: bilateral: normal size - Respiratory Respiratory: bilateral: CTA, wheezing, prolonged expiration, negative: dullness , rales, rhonchi - Cardiovascular Rhythm: regular Heart sounds: normal: S1, S2 - Gastrointestinal General gastrointestinal: decreased bowel sounds, normal bowel sounds, soft - Neurologic Neurologic: CNII-XII intact - Musculoskeletal Musculoskeletal: gait normal, generalized weakness, strength equal bilaterally - Psychiatric Due to stroke significant speech impairment noted Psychiatric: A&O x's one to 2, appropriate affect, - Labs CBC & Chem 7: 06/14/18 06:53 06/15/18 06:41 Labs: Abnormal Lab Results - Last 24 Hours (Table) 06/14/18 06/14/18 06/14/18 Range/Units 12:13 16:47 19:58 Chloride (98-107) mmol/L Carbon Dioxide (22-30) mmol/L BUN (7-17) mg/dL Creatinine (0.52-1.04) mg/dL Glucose (74-99) mg/dL POC Glucose (mg/dL) 238 H 214 H 212 H (75-99) mg/dL 06/15/18 06/15/18 Range/Units 06:41 07:17 Chloride 95 L (98-107) mmol/L Carbon Dioxide 35 H (22-30) mmol/L BUN 76 H (7-17) mg/dL Creatinine 2.24 H (0.52-1.04) mg/dL Glucose 150 H (74-99) mg/dL POC Glucose (mg/dL) 140 H (75-99) mg/dL Microbiology - Last 24 Hours (Table) 06/09/18 02:10 Blood Culture - Final Blood No Growth after 144 hours Assessment and Plan Assessment: Acute hypoxic respiratory failure Bilateral pneumonia, aspiration related/healthcare associated pneumonia Acute on chronic renal failure, stage III History of CVA UTI, polymicrobial associated with the E. coli and enterococcus, E. coli appears to be ESBL, you broad-spectrum antibiotics Elevated troponins occurred [place] non-ST segment elevated cannot be excluded given that the BNP is elevated associated congestive heart failure remains an issue Plan: Continue antibiotics as recommended by infectious disease services Continue breathing treatments IV steroids Reviewed chest x-ray Other recommendations pending plan of care as per clinical response of the patient, overall long-term prognosis poor, once stable patient can be considerable placement in extended care facility Time with Patient: Greater than 30
--- NOTE | 2018-06-15 09:58 | P.PN ---
Subjective Progress Note Date: 06/15/18 Principal diagnosis: Acute on chronic hypoxic respiratory failure, history of prior stroke, healthcare associated pneumonia, acute on chronic renal failure, 06/15/2018, patient seen eval examined during the rounds clinically patient has been doing well increase in her responsiveness is lately noted, patient is scheduled for placement ECF in next 24 hours 06/14/18, patient seen eval examined during the rounds clinically overall not much change patient has been intermittently using oxygen still have intermittent cough congestion severity is secretion slightly improved hemodynamic status stable care plan discussed with the staff at length given the current situation would recommend to continue current plan of care and follow clinical course closely 06/13/2018, patient seen eval examined during the rounds she has refused the utilization of oxygen, he still have intermittent congestion and pulling of secretions into the throat,, patient has been swallowing pills fairly okay, June 12 2018, patient seen eval reexamined during the rounds clinically patient has been out much change, continued to have a respiratory issues and pulling of secretion back of the throat, patient has been a no code, patient does not keep the oxygen on, care plan discussed with the staff at length would continue supportive care overall long-term prognosis poor 06/11/2018, patient seen eval examined during the rounds still have ongoing intermittent cough congestion patient remains on broad-spectrum antibiotics patient has issues with keeping the oxygen on, labs reviewed medications reviewed care plan discussed with the staff at length, the chest x-ray continue show by basilar infiltrate and small effusion with interstitial edema 82-year-old female with history of prior CVA with significant aphasia patient has some residual weakness in the extremity a patient is a resident of extended care facility she was noted to be more short of breath as well as started having cough with thick purulent sputum production with those problem patient was brought into emergency department for further evaluation has been admitted into the hospital, her admitted chest x-ray suggestive of patchy bilateral infiltrate, both lungs and wall more so on the right side compared to the left side, urine culture and blood culture have been negative, patient is currently being treated with Zosyn, her labs are reviewed, labs white cell count is 14,000 , BUN/creatinine 60 and 3.48 slight worsening from previous renal functions have been noted, Objective - Vital Signs Vital signs: Vital Signs Temp 96.9 F L 06/15/18 07:20 Pulse 103 H 06/15/18 07:20 Resp 16 06/15/18 07:20 BP 194/97 06/15/18 07:20 Pulse Ox 95 06/15/18 07:20 Intake & Output 06/14/18 06/15/18 06/15/18 18:59 06:59 18:59 Intake Total 255 200 Output Total 575 875 Balance -320 -995 Intake: IV 55 normal saline 55 Oral 200 200 Output: Urine 575 875 Other: Voiding Method Indwelling Catheter Indwelling Catheter Indwelling Catheter - Exam - Constitutional General appearance: average body habitus, cooperative, disheveled, mild distress - EENT Eyes: anicteric sclerae, EOMI, PERRLA, poor dentition ENT: hard of hearing, normal oropharynx Ears: bilateral: normal - Neck Carotids: bilateral: upstroke normal Thyroid: bilateral: normal size - Respiratory Respiratory: bilateral: CTA, fine wheezing on forced expiration, prolonged expiration, negative: dullness, rales, rhonchi - Cardiovascular Rhythm: regular Heart sounds: normal: S1, S2 - Gastrointestinal General gastrointestinal: decreased bowel sounds, normal bowel sounds, soft - Neurologic Neurologic: CNII-XII intact - Musculoskeletal Musculoskeletal: gait normal, generalized weakness, strength equal bilaterally - Psychiatric Due to stroke significant speech impairment noted Psychiatric: A&O x's one to 2, appropriate affect, - Labs CBC & Chem 7: 06/14/18 06:53 06/15/18 06:41 Labs: Abnormal Lab Results - Last 24 Hours (Table) 06/14/18 06/14/18 06/14/18 Range/Units 12:13 16:47 19:58 Chloride (98-107) mmol/L Carbon Dioxide (22-30) mmol/L BUN (7-17) mg/dL Creatinine (0.52-1.04) mg/dL Glucose (74-99) mg/dL POC Glucose (mg/dL) 238 H 214 H 212 H (75-99) mg/dL 06/15/18 06/15/18 Range/Units 06:41 07:17 Chloride 95 L (98-107) mmol/L Carbon Dioxide 35 H (22-30) mmol/L BUN 76 H (7-17) mg/dL Creatinine 2.24 H (0.52-1.04) mg/dL Glucose 150 H (74-99) mg/dL POC Glucose (mg/dL) 140 H (75-99) mg/dL Microbiology - Last 24 Hours (Table) 06/09/18 02:10 Blood Culture - Final Blood No Growth after 144 hours Assessment and Plan Assessment: Acute hypoxic respiratory failure Bilateral pneumonia, aspiration related/healthcare associated pneumonia Acute on chronic renal failure, stage III History of CVA UTI, polymicrobial associated with the E. coli and enterococcus, E. coli appears to be ESBL, you broad-spectrum antibiotics Elevated troponins occurred CA non-ST segment elevated cannot be excluded given that the BNP is elevated associated congestive heart failure remains an issue Plan: Continue antibiotics as recommended by infectious disease services Continue breathing treatments IV steroids Reviewed chest x-ray Other recommendations pending plan of care as per clinical response of the patient, overall long-term prognosis poor, once stable patient can be considerable placement in extended care facility Time with Patient: Greater than 30
--- NOTE | 2018-06-15 10:52 | P.PN ---
Subjective Patient is seen in follow-up for acute kidney injury on chronic kidney disease. Patient has chronic kidney disease stage IV with baseline creatinine near 2 secondary to nephrosclerosis and cardiorenal syndrome. Patient has history of diastolic CHF. Currently maintained on Lasix 40 mg IV 3 times daily. She is nonoliguric. Weight trending down. She is also being treated for UTI. Urine cultures positive for E. coli and enterococcus. Patient is not a reliable historian. BP running high. Vital signs are stable. General: The patient appeared well nourished and normally developed. HEENT: Head exam is unremarkable. Neck is without jugular venous distension. LUNGS: Breath sounds decreased. Scattered rhonchi. HEART: Rate and Rhythm are regular. First and second heart sounds normal. No murmurs, rubs or gallops. ABDOMEN: Abdominal exam reveals normal bowel sounds. Non-tender and non- distended. No evidence of peritonitis. EXTREMITITES: 1+ edema. Objective - Vital Signs Vital signs: Vital Signs Temp 96.9 F L 06/15/18 07:20 Pulse 103 H 06/15/18 07:20 Resp 16 06/15/18 07:20 BP 194/97 06/15/18 07:20 Pulse Ox 95 06/15/18 07:20 Intake & Output 06/14/18 06/15/18 06/15/18 18:59 06:59 18:59 Intake Total 255 200 Output Total 575 875 Balance -320 -675 Intake: IV 55 normal saline 55 Oral 200 200 Output: Urine 575 875 Other: Voiding Method Indwelling Catheter Indwelling Catheter Indwelling Catheter - Labs CBC & Chem 7: 06/14/18 06:53 06/15/18 06:41 Labs: Abnormal Lab Results - Last 24 Hours (Table) 06/14/18 06/14/18 06/14/18 Range/Units 12: 16:47 19:58 Chloride (98-107) mmol/L Carbon Dioxide (22-30) mmol/L BUN (7-17) mg/dL Creatinine (0.52-1.04) mg/dL Glucose (74-99) mg/dL POC Glucose (mg/dL) 238 H 214 H 212 H (75-99) mg/dL 06/15/18 06/15/18 Range/Units 06:41 07:17 Chloride 95 L (98-107) mmol/L Carbon Dioxide 35 H (22-30) mmol/L BUN 76 H (7-17) mg/dL Creatinine 2.24 H (0.52-1.04) mg/dL Glucose 150 H (74-99) mg/dL POC Glucose (mg/dL) 140 H (75-99) mg/dL Microbiology - Last 24 Hours (Table) 06/09/18 02:10 Blood Culture - Final Blood No Growth after 144 hours Assessment and Plan Plan: Assessment: 1. Nonoliguric acute kidney injury mostly prerenal secondary to cardiorenal syndrome. Creatinine stable at 2.24 today. 2. Chronic kidney disease stage IV with basic creatinine near 2 secondary to nephrosclerosis and cardiorenal syndrome. 3. Diastolic CHF. 4. Volume overload. 5. UTI with urine culture positive for ESBL E. coli and enterococcus maintained on antibiotics. 6. History of hypercalcemia maintained on Sensipar. 7. Hypertension with chronic kidney disease. Blood pressures high. Partially due to IV steroids. Plan: Maintain Lasix 40 mg IV 3 times daily. Discontinued oral bicarb. Avoid nephrotoxins. Add hydralazine 25 mg tid. Repeat electrolytes in the morning.
[2018-06-15 12:06] LABS: Glucose,Whole Blood 160 mg/dL (75-99)
[2018-06-15] MEDS: hydrALAZINE HCL 25 MG TAB PO SCH ×2 (15:40→21:59)
--- NOTE | 2018-06-15 16:58 | PN ---
PROGRESS NOTE DATE OF SERVICE: 06/15/2018 She was seen on June2018. She has been hemodynamically stable. She does not complain of shortness of breath or pain. Her blood pressure is 161/87, respiratory rate of 14, pulse of 100, temperature 97.5, O2 saturation on 3 L by nasal cannula is 93%. HEENT is unremarkable. Chest is clear. Cardiovascular system revealed an S1, S2. Abdomen is soft. There is trace pedal edema. IMPRESSION: 1. Urinary tract infection. 2. Metabolic encephalopathy. 3. Sepsis. 4. Brain mass. 5. Dementia. 6. Congestive heart failure. Continue her on her current medications which were reviewed. Appreciate input by ID, cardiology, Pulmonary, and Nephrology. MMODL / IJN: [id number] /
[2018-06-15 20:09] LABS: Glucose,Whole Blood 218 mg/dL (75-99)
[2018-06-15] MEDS: ALPRAZolam 0.25 MG TAB PO SCH (21:59)
[2018-06-15] MEDS: MIRTAZAPINE 15 MG TAB PO SCH (22:00)
[2018-06-15] MEDS: LATANOPROST 0.005% OPHTH DROPS 2.5 ML BTL LEFT EYE SCH (22:01)
[2018-06-15] MEDS: prednisoLONE ACETATE 1% OPHTH DROPS 5 ML BTL BOTH EYES SCH (22:01)
--- NOTE | 2018-06-16 00:48 | PN ---
PROGRESS NOTE DATE OF SERVICE: 06/15/2018. REASON FOR FOLLOWUP VISIT: ESBL E. Coli urinary tract infection. INTERVAL HISTORY: The patient is currently afebrile. She is breathing comfortably. No nausea, vomiting, diarrhea reported by the nursing staff. She is unable to provide any reliable history today. EXAMINATION: Blood pressure 151/87, pulse of 100. Temperature 97.5. She is 93% on 3 L nasal cannula. General description is an elderly female lying in bed in no distress. Respiratory system: Unlabored breathing with decreased breath sounds in the bases. No wheeze. Heart S1, S2. Regular rate and rhythm. ABDOMEN: Soft, no tenderness. LABS: BUN of 27, creatinine is 2.24. DIAGNOSTIC IMPRESSION AND PLAN: Patient with an ESBL E coli urinary tract infection. The patient slowly clinically improving. The patient to continue on InVance at this point while watching clinical course closely. Continue supportive care. MMODL / IJN: [id number] /
[2018-06-16] MEDS: FUROSEMIDE 10 MG/ML 4 ML VIAL IV SCH ×3 (03:55→19:43)
[2018-06-16 06:52] LABS: Calcium 9.5 mg/dL (8.4-10.2); Magnesium 2.2 mg/dL (1.6-2.3); Potassium 4.2 mmol/L (3.5-5.1)
[2018-06-16 07:26] LABS: Glucose,Whole Blood 175 mg/dL (75-99)
[2018-06-16] MEDS: IPRATROPIUM-ALBUTEROL 3 ML NEB INHALATION SCH ×5 (07:28→20:44)
[2018-06-16] MEDS: ERTAPENEM 0.5 GM in SODIUM CHLORIDE 0.9% 50 ML IVPB SCH (10:47)
[2018-06-16] MEDS: FERROUS SULFATE 325 MG TAB PO SCH ×2 (10:51→17:13)
[2018-06-16] MEDS: APIXABAN 2.5 MG TABLET PO SCH ×2 (10:51→21:07)
[2018-06-16] MEDS: methylPREDNISolone SOD SUCCI 40 MG/ML 1 ML VIAL IV SCH ×2 (10:51→19:43)
[2018-06-16] MEDS: DILTIAZEM CD 240 MG CAP.ER.24H PO SCH (10:51)
[2018-06-16] MEDS: METOPROLOL TARTRATE 50 MG TAB PO SCH ×2 (10:51→19:46)
[2018-06-16] MEDS: hydrALAZINE HCL 25 MG TAB PO SCH ×3 (10:51→19:46)
[2018-06-16] MEDS: LORATADINE 10 MG TAB PO SCH (10:51)
[2018-06-16] MEDS: FLUTICASONE 50MCG/SPRAY NASAL 16GM EA NOSTRIL SCH ×2 (10:52→19:44)
[2018-06-16] MEDS: CINACALCET 30 MG TAB PO SCH (10:54)
[2018-06-16] MEDS: LEVOTHYROXINE 25 MCG TAB PO SCH (10:54)
--- NOTE | 2018-06-16 11:44 | P.PN ---
Subjective Progress Note Date: 06/16/18 Principal diagnosis: Acute on chronic hypoxic respiratory failure, history of prior stroke, healthcare associated pneumonia, acute on chronic renal failure, 06/16/2018, patient seen eval examined during the rounds clinically patient has been not much change from baseline breathing comfortably he is still using oxygen intermittently no obvious distress present labs reviewed medications reviewed 06/15/2018, patient seen eval examined during the rounds clinically patient has been doing well increase in her responsiveness is lately noted, patient is scheduled for placement ECF in next 24 hours 06/14/18, patient seen eval examined during the rounds clinically overall not much change patient has been intermittently using oxygen still have intermittent cough congestion severity is secretion slightly improved hemodynamic status stable care plan discussed with the staff at length given the current situation would recommend to continue current plan of care and follow clinical course closely 06/13/2018, patient seen eval examined during the rounds she has refused the utilization of oxygen, he still have intermittent congestion and pulling of secretions into the throat,, patient has been swallowing pills fairly okay, June 12 2018, patient seen eval reexamined during the rounds clinically patient has been out much change, continued to have a respiratory issues and pulling of secretion back of the throat, patient has been a no code, patient does not keep the oxygen on, care plan discussed with the staff at length would continue supportive care overall long-term prognosis poor 06/11/2018, patient seen eval examined during the rounds still have ongoing intermittent cough congestion patient remains on broad-spectrum antibiotics patient has issues with keeping the oxygen on, labs reviewed medications reviewed care plan discussed with the staff at length, the chest x-ray continue show by basilar infiltrate and small effusion with interstitial edema 82-year-old female with history of prior CVA with significant aphasia patient has some residual weakness in the extremity a patient is a resident of [facility] she was noted to be more short of breath as well as started having cough with thick purulent sputum production with those problem patient was brought into emergency department for further evaluation has been admitted into the hospital, her admitted chest x-ray suggestive of patchy bilateral infiltrate, both lungs and wall more so on the right side compared to the left side, urine culture and blood culture have been negative, patient is currently being treated with Zosyn, her labs are reviewed, labs white cell count is 14,000 , BUN/creatinine 60 and 3.48 slight worsening from previous renal functions have been noted, Objective - Vital Signs Vital signs: Vital Signs Temp 97.6 F 06/16/18 07:00 Pulse 84 06/16/18 07:00 Resp 18 06/16/18 07:00 BP 180/97 06/16/18 07:00 Pulse Ox 95 06/16/18 07:28 Intake & Output 06/15/18 06/16/18 06/16/18 18:59 06:59 18:59 Intake Total 240 780 Output Total 1100 1600 Balance -860 -820 Weight 65.5 kg Intake: Oral 240 780 Output: Urine 1100 1600 Uretheral (Urban) 1100 Other: Voiding Method Indwelling Catheter Indwelling Catheter # Voids 1 - Exam - Constitutional General appearance: average body habitus, cooperative, disheveled, mild distress - EENT Eyes: anicteric sclerae, EOMI, PERRLA, poor dentition ENT: hard of hearing, normal oropharynx Ears: bilateral: normal - Neck Carotids: bilateral: upstroke normal Thyroid: bilateral: normal size - Respiratory Respiratory: bilateral: CTA, fine wheezing on forced expiration, prolonged expiration, negative: dullness, rales, rhonchi - Cardiovascular Rhythm: regular Heart sounds: normal: S1, S2 - Gastrointestinal General gastrointestinal: decreased bowel sounds, normal bowel sounds, soft - Neurologic Neurologic: CNII-XII intact - Musculoskeletal Musculoskeletal: gait normal, generalized weakness, strength equal bilaterally - Psychiatric Due to stroke significant speech impairment noted Psychiatric: A&O x's one to 2, appropriate affect, - Labs CBC & Chem 7: 06/14/18 06:53 06/16/18 05:56 Labs: Abnormal Lab Results - Last 24 Hours (Table) 06/15/18 06/15/18 06/16/18 Range/Units 11:55 19:58 05:56 Chloride 96 L (98-107) mmol/L Carbon Dioxide 39 H (22-30) mmol/L BUN 76 H (7-17) mg/dL Creatinine 2.04 H (0.52-1.04) mg/dL Glucose 154 H (74-99) mg/dL POC Glucose (mg/dL) 160 H 218 H (75-99) mg/dL 06/16/18 Range/Units 07:25 Chloride (98-107) mmol/L Carbon Dioxide (22-30) mmol/L BUN (7-17) mg/dL Creatinine (0.52-1.04) mg/dL Glucose (74-99) mg/dL POC Glucose (mg/dL) 175 H (75-99) mg/dL Assessment and Plan Assessment: Acute hypoxic respiratory failure Bilateral pneumonia, aspiration related/healthcare associated pneumonia Acute on chronic renal failure, stage III History of CVA UTI, polymicrobial associated with the E. coli and enterococcus, E. coli appears to be ESBL, you broad-spectrum antibiotics Elevated troponins occurred PR non-ST segment elevated cannot be excluded given that the BNP is elevated associated congestive heart failure remains an issue Plan: Continue antibiotics as recommended by infectious disease services Continue breathing treatments IV steroids Reviewed chest x-ray Other recommendations pending plan of care as per clinical response of the patient, overall long-term prognosis poor, once stable patient can be considerable placement in extended care facility Time with Patient: Greater than 30
[2018-06-16 12:15] LABS: Glucose,Whole Blood 209 mg/dL (75-99)
--- NOTE | 2018-06-16 15:16 | PN ---
PROGRESS NOTE Patient is seen for followup for acute kidney injury. She is currently maintained on IV Lasix for volume overload. Renal function continues to improve. Serum creatinine is down to 2.0, currently from 3.4 on initial admission. PHYSICAL EXAMINATION: Blood pressure is 180/97, heart rate 84 per minute. She is afebrile. Examination of the heart, S1, S2. Examination of the lungs, bilateral breath sounds are heard. Abdomen is soft, nontender. Examination of the lower extremities shows chronic skin changes. Edema has improved significantly. [employer] exam shows patient moving all 4 extremities. She remains confused. LABS: Show sodium 143, potassium 4.2, chloride 96, CO2 is 39, BUN 76, serum creatinine 2.04. ASSESSMENT: 1. Acute kidney injury mainly cardiorenal, currently improving. 2. Congestive heart failure, volume overload mainly diastolic dysfunction. Continue to improve. Continue with the IV Lasix. 3. Hypertension remains uncontrolled. I will increase the hydralazine. 4. Metabolic alkalosis secondary to diuresis. I will decrease the Lasix to q.12 hours. PLAN: Decrease Lasix to q.12 hours and repeat labs in a.m. MMODL / IJN: [id number] /
[2018-06-16 17:10] LABS: Glucose,Whole Blood 179 mg/dL (75-99)
[2018-06-16] MEDS: INSULIN ASPART 100 UNIT/ML 1 ML 10 ML VIAL SQ SCH ×2 (17:14→21:07)
--- NOTE | 2018-06-16 17:29 | PN ---
PROGRESS NOTE SUBJECTIVE: 82-year-old white male remains on IV Lasix per Dr. Chacko, renal physician. Dr. Alejandre has her on IV Ancef for UTI. ESBL E. coli urinary tract infection, clinically improving. Possible PICC line placement for discharge planning over the next 24 to 48 hours. She appears to be maintaining, her mentation appears improved. Her lungs are clear. Cardiovascular S1, S2. ASSESSMENT: 1. ESBL urinary tract infection. 2. Sepsis secondary to above. 3. Dehydration secondary to above. 4. Metabolic encephalopathy. 5. Acute tubular necrosis. 6. Dementia. 7. Congestive heart failure, diastolic. 8. Metabolic alkalosis. Wean down the Lasix. Continue with IV Ancef. Await for plans on discharge this week, back to the rehab. CLAUDIA / MIRTA: [id number] /
[2018-06-16] MEDS: prednisoLONE ACETATE 1% OPHTH DROPS 5 ML BTL BOTH EYES SCH (19:43)
[2018-06-16] MEDS: LATANOPROST 0.005% OPHTH DROPS 2.5 ML BTL LEFT EYE SCH (19:43)
[2018-06-16] MEDS: MIRTAZAPINE 15 MG TAB PO SCH (19:46)
[2018-06-16] MEDS: ALPRAZolam 0.25 MG TAB PO SCH (19:46)
[2018-06-16 20:41] LABS: Glucose,Whole Blood 194 mg/dL (75-99)
--- NOTE | 2018-06-16 21:43 | PN ---
PROGRESS NOTE DATE OF SERVICE: 06/16/2018. REASON FOR FOLLOWUP: ESBL E coli urinary tract infection. INTERVAL HISTORY: The patient is currently afebrile. She is breathing comfortably. The patient remains to be sleepy, lethargic and unable to provide any history. No nausea, vomiting or diarrhea reported by the nursing staff. Oral intake remains to be poor. PHYSICAL EXAMINATION: Blood pressure 150/91 with a pulse of 78, temperature 97.8. She is 92% on 5 L nasal cannula. General description is an elderly female lying in bed in no distress. Respiratory system: Unlabored breathing. Clear to auscultation anteriorly. Heart S1, S2. Regular rate and rhythm. ABDOMEN: Soft, no tenderness. LABS: BUN of 76, creatinine 4.04. DIAGNOSTIC IMPRESSION AND PLAN: Patient with ESBL E coli tract infection. Also concern for possible pneumonia and the patient is currently covered with Invanz to continue for now to finish a 7 to 10 course of therapy. MMODL / IJN: [id number] /
[2018-06-17] MEDS: hydrALAZINE HCL 20 MG/ML 1 ML VIAL IVP PRN (00:32)
[2018-06-17 07:18] LABS: Glucose,Whole Blood 132 mg/dL (75-99)
[2018-06-17] MEDS: IPRATROPIUM-ALBUTEROL 3 ML NEB INHALATION SCH ×4 (08:55→21:06)
[2018-06-17] MEDS: hydrALAZINE HCL 25 MG TAB PO SCH ×3 (09:11→21:25)
[2018-06-17] MEDS: METOPROLOL TARTRATE 50 MG TAB PO SCH ×2 (09:11→21:29)
[2018-06-17] MEDS: APIXABAN 2.5 MG TABLET PO SCH ×2 (09:11→21:24)
[2018-06-17] MEDS: INSULIN ASPART 100 UNIT/ML 1 ML 10 ML VIAL SQ SCH ×4 (09:13→21:29)
[2018-06-17] MEDS: CINACALCET 30 MG TAB PO SCH (09:13)
[2018-06-17] MEDS: FERROUS SULFATE 325 MG TAB PO SCH ×2 (09:14→18:03)
[2018-06-17] MEDS: LEVOTHYROXINE 25 MCG TAB PO SCH (09:14)
[2018-06-17] MEDS: BUPRENORPHINE TRANSDERM SCH (09:14)
[2018-06-17] MEDS: LORATADINE 10 MG TAB PO SCH (09:15)
[2018-06-17] MEDS: FLUTICASONE 50MCG/SPRAY NASAL 16GM EA NOSTRIL SCH ×2 (09:15→21:25)
[2018-06-17] MEDS: methylPREDNISolone SOD SUCCI 40 MG/ML 1 ML VIAL IV SCH (09:15)
[2018-06-17] MEDS: FUROSEMIDE 10 MG/ML 4 ML VIAL IV SCH ×2 (09:15→21:24)
[2018-06-17] MEDS: ERTAPENEM 0.5 GM in SODIUM CHLORIDE 0.9% 50 ML IVPB SCH (11:47)
[2018-06-17] MEDS: DILTIAZEM CD 240 MG CAP.ER.24H PO SCH (11:48)
[2018-06-17] MEDS: acetaZOLAMIDE 250 MG TAB PO SCH (11:48)
[2018-06-17 12:07] LABS: Glucose,Whole Blood 167 mg/dL (75-99)
--- NOTE | 2018-06-17 13:42 | P.PN ---
Subjective Patient is seen in follow-up for acute kidney injury on chronic kidney disease. Patient has chronic kidney disease stage IV with baseline creatinine near 2 secondary to nephrosclerosis and cardiorenal syndrome. Patient has history of diastolic CHF. Currently maintained on Lasix 40 mg IV twice daily. She is nonoliguric. Weight trending down. She is also being treated for UTI. Urine cultures positive for E. coli and enterococcus. Currently having lunch. Edema improved. Vital signs are stable. General: The patient appeared well nourished and normally developed. HEENT: Head exam is unremarkable. Neck is without jugular venous distension. LUNGS: Breath sounds decreased. Scattered rhonchi. HEART: Rate and Rhythm are regular. First and second heart sounds normal. No murmurs, rubs or gallops. ABDOMEN: Abdominal exam reveals normal bowel sounds. Non-tender and non- distended. No evidence of peritonitis. EXTREMITITES: 1+ edema. Objective - Vital Signs Vital signs: Vital Signs Temp 97.5 F L 06/17/18 09:07 Pulse 75 06/17/18 09:07 Resp 20 06/17/18 09:07 BP 163/87 06/17/18 09:07 Pulse Ox 90 L 06/17/18 09:07 Intake & Output 06/16/18 06/17/18 06/17/18 18:59 06:59 18:59 Intake Total 50 500 296 Output Total 1775 Balance 50 -1275 296 Intake: Intake, IV Titration 50 Amount Ertapenem 0.5 gm In 50 Sodium Chloride 0.9% 50 ml @ 100 mls/hr IVPB DAILY [facility] Rx#:[id number] Oral 500 296 Output: Urine 1775 Other: Voiding Method Indwelling Catheter Indwelling Catheter - Labs CBC & Chem 7: 06/14/18 06:53 06/16/18 05:56 Labs: Abnormal Lab Results - Last 24 Hours (Table) 06/16/18 06/16/18 06/17/18 Range/Units 17:02 20:39 07:16 POC Glucose (mg/dL) 179 H 194 H 132 H (75-99) mg/dL 06/17/18 Range/Units 12:06 POC Glucose (mg/dL) 167 H (75-99) mg/dL Assessment and Plan Plan: Assessment: 1. Nonoliguric acute kidney injury mostly prerenal secondary to cardiorenal syndrome. Creatinine improved to 2.04 as of yesterday. 2. Chronic kidney disease stage IV with basic creatinine near 2 secondary to nephrosclerosis and cardiorenal syndrome. 3. Diastolic CHF. 4. Volume overload. Improved. 5. UTI with urine culture positive for ESBL E. coli and enterococcus maintained on antibiotics. 6. History of hypercalcemia maintained on Sensipar. Stable. 7. Hypertension with chronic kidney disease. Blood pressures high. Partially due to IV steroids. Plan: Maintain Lasix 40 mg IV 2 times daily. Avoid nephrotoxins. Maintain current vent hypertensives. Repeat electrolytes in the morning.
--- NOTE | 2018-06-17 14:09 | P.PN ---
Subjective Progress Note Date: 06/17/18 Principal diagnosis: Acute on chronic hypoxic respiratory failure, history of prior stroke, healthcare associated pneumonia, acute on chronic renal failure, 06/17/2018, patient seen eval examined during the rounds clinically patient has been doing relatively better, care plan discussed with the staff, we'll start tapering down the steroids, we'll change to oral prednisone hopefully in the next 10 days she can come off of it would recommend 40 mg daily for 5 days followed by 20 mg daily for another 5 days and then to come off of it 06/16/2018, patient seen eval examined during the rounds clinically patient has been not much change from baseline breathing comfortably he is still using oxygen intermittently no obvious distress present labs reviewed medications reviewed 06/15/2018, patient seen eval examined during the rounds clinically patient has been doing well increase in her responsiveness is lately noted, patient is scheduled for placement [facility]CF in next 24 hours 06/14/18, patient seen eval examined during the rounds clinically overall not much change patient has been intermittently using oxygen still have intermittent cough congestion severity is secretion slightly improved hemodynamic status stable care plan discussed with the staff at length given the current situation would recommend to continue current plan of care and follow clinical course closely 06/13/2018, patient seen eval examined during the rounds she has refused the utilization of oxygen, he still have intermittent congestion and pulling of secretions into the throat,, patient has been swallowing pills fairly okay, June 12 2018, patient seen eval reexamined during the rounds clinically patient has been out much change, continued to have a respiratory issues and pulling of secretion back of the throat, patient has been a no code, patient does not keep the oxygen on, care plan discussed with the staff at length would continue supportive care overall long-term prognosis poor 06/11/2018, patient seen eval examined during the rounds still have ongoing intermittent cough congestion patient remains on broad-spectrum antibiotics patient has issues with keeping the oxygen on, labs reviewed medications reviewed care plan discussed with the staff at length, the chest x-ray continue show by basilar infiltrate and small effusion with interstitial edema 82-year-old female with history of prior CVA with significant aphasia patient has some residual weakness in the extremity a patient is a resident of [facility] she was noted to be more short of breath as well as started having cough with thick purulent sputum production with those problem patient was brought into emergency department for further evaluation has been admitted into the hospital, her admitted chest x-ray suggestive of patchy bilateral infiltrate, both lungs and wall more so on the right side compared to the left side, urine culture and blood culture have been negative, patient is currently being treated with Zosyn, her labs are reviewed, labs white cell count is 14,000 , BUN/creatinine 60 and 3.48 slight worsening from previous renal functions have been noted, Objective - Vital Signs Vital signs: Vital Signs Temp 97.5 F L 06/17/18 09:07 Pulse 75 06/17/18 09:07 Resp 20 06/17/18 09:07 BP 163/87 06/17/18 09:07 Pulse Ox 90 L 06/17/18 09:07 Intake & Output 06/16/18 06/17/18 06/17/18 18:59 06:59 18:59 Intake Total 50 500 296 Output Total 1775 Balance 50 -1275 296 Intake: Intake, IV Titration 50 Amount Ertapenem 0.5 gm In 50 Sodium Chloride 0.9% 50 ml @ 100 mls/hr IVPB DAILY [facility] Rx#:[id number] Oral 500 296 Output: Urine 1775 Other: Voiding Method Indwelling Catheter Indwelling Catheter - Exam - Constitutional General appearance: average body habitus, cooperative, disheveled, mild distress - EENT Eyes: anicteric sclerae, EOMI, PERRLA, poor dentition ENT: hard of hearing, normal oropharynx Ears: bilateral: normal - Neck Carotids: bilateral: upstroke normal Thyroid: bilateral: normal size - Respiratory Respiratory: bilateral: CTA, fine wheezing on forced expiration, prolonged expiration, negative: dullness, rales, rhonchi - Cardiovascular Rhythm: regular Heart sounds: normal: S1, S2 - Gastrointestinal General gastrointestinal: decreased bowel sounds, normal bowel sounds, soft - Neurologic Neurologic: CNII-XII intact - Musculoskeletal Musculoskeletal: gait normal, generalized weakness, strength equal bilaterally - Psychiatric Due to stroke significant speech impairment noted Psychiatric: A&O x's one to 2, appropriate affect, - Labs CBC & Chem 7: 06/14/18 06:53 06/16/18 05:56 Labs: Abnormal Lab Results - Last 24 Hours (Table) 06/16/18 06/16/18 06/17/18 Range/Units 17:02 20:39 07:16 POC Glucose (mg/dL) 179 H 194 H 132 H (75-99) mg/dL 06/17/18 Range/Units 12:06 POC Glucose (mg/dL) 167 H (75-99) mg/dL Assessment and Plan Assessment: Acute hypoxic respiratory failure Bilateral pneumonia, aspiration related/healthcare associated pneumonia Acute on chronic renal failure, stage III History of CVA UTI, polymicrobial associated with the E. coli and enterococcus, E. coli appears to be ESBL, you broad-spectrum antibiotics Elevated troponins occurred CA non-ST segment elevated cannot be excluded given that the BNP is elevated associated congestive heart failure remains an issue Plan: Continue antibiotics as recommended by infectious disease services Continue breathing treatments IV steroids Reviewed chest x-ray Other recommendations pending plan of care as per clinical response of the patient, overall long-term prognosis poor, once stable patient can be considerable placement in extended care facility Time with Patient: Greater than 30
[2018-06-17] MEDS: predniSONE 20 MG TAB PO SCH (15:55)
[2018-06-17 20:26] LABS: Glucose,Whole Blood 237 mg/dL (75-99)
[2018-06-17] MEDS: ALPRAZolam 0.25 MG TAB PO SCH (21:24)
[2018-06-17] MEDS: prednisoLONE ACETATE 1% OPHTH DROPS 5 ML BTL BOTH EYES SCH (21:25)
[2018-06-17] MEDS: LATANOPROST 0.005% OPHTH DROPS 2.5 ML BTL LEFT EYE SCH (21:25)
[2018-06-17] MEDS: MIRTAZAPINE 15 MG TAB PO SCH (21:28)
--- NOTE | 2018-06-17 23:39 | PN ---
PROGRESS NOTE DATE OF SERVICE: 06/17/2018. REASON FOR FOLLOWUP: 1. ESBL E coli urinary tract infection. 2. Possible pneumonia. INTERVAL HISTORY: The patient is afebrile. The patient remains to be breathing comfortably on nasal cannula oxygen. No nausea, vomiting or diarrhea reported to the staff. She was unable to provide any history. EXAMINATION: Blood pressure 135/89, pulse of 86, temperature 97.9. She is 98% on room air. GENERAL DESCRIPTION: An elderly female lying in bed in no distress. RESPIRATORY SYSTEM: Unlabored breathing with decreased breath sounds in the bases. No wheeze. HEART: S1, S2. Regular rate and rhythm. ABDOMEN: Soft, no tenderness. LABS: Hemoglobin 13.4, white count 9.0. BUN of 76, creatinine 2.04. DIAGNOSTIC IMPRESSION AND PLAN: Patient with ESBL E coli urinary tract infection, also concern for possible pneumonia. Patient is currently covered with Invanz. She will get and continue with Invanz for another 5 to 7 days to finish a course of therapy. Continue supportive care. MMODL / IJN: [id number] /
[2018-06-18 07:21] LABS: Glucose,Whole Blood 120 mg/dL (75-99)
[2018-06-18] MEDS: IPRATROPIUM-ALBUTEROL 3 ML NEB INHALATION SCH ×3 (07:45→16:40)
[2018-06-18 07:56] LABS: Calcium 9.9 mg/dL (8.4-10.2); Magnesium 2.3 mg/dL (1.6-2.3); Potassium 4.4 mmol/L (3.5-5.1)
[2018-06-18] MEDS: FERROUS SULFATE 325 MG TAB PO SCH (08:43)
[2018-06-18] MEDS: APIXABAN 2.5 MG TABLET PO SCH (08:43)
[2018-06-18] MEDS: CINACALCET 30 MG TAB PO SCH (08:43)
[2018-06-18] MEDS: FUROSEMIDE 10 MG/ML 4 ML VIAL IV SCH (08:43)
[2018-06-18] MEDS: hydrALAZINE HCL 25 MG TAB PO SCH (08:43)
[2018-06-18] MEDS: ERTAPENEM 0.5 GM in SODIUM CHLORIDE 0.9% 50 ML IVPB SCH (08:43)
[2018-06-18] MEDS: LORATADINE 10 MG TAB PO SCH (08:44)
[2018-06-18] MEDS: predniSONE 20 MG TAB PO SCH (08:44)
[2018-06-18] MEDS: DILTIAZEM CD 240 MG CAP.ER.24H PO SCH (08:44)
[2018-06-18] MEDS: METOPROLOL TARTRATE 50 MG TAB PO SCH (08:44)
[2018-06-18] MEDS: LEVOTHYROXINE 25 MCG TAB PO SCH (08:45)
[2018-06-18] MEDS: INSULIN ASPART 100 UNIT/ML 1 ML 10 ML VIAL SQ SCH ×2 (08:45→12:15)
[2018-06-18] MEDS: FLUTICASONE 50MCG/SPRAY NASAL 16GM EA NOSTRIL SCH (09:19)
--- NOTE | 2018-06-18 10:39 | P.PN ---
Subjective Patient is seen in follow-up for acute kidney injury on chronic kidney disease. Patient has chronic kidney disease stage IV with baseline creatinine near 2 secondary to nephrosclerosis and cardiorenal syndrome. Patient has history of diastolic CHF. Currently maintained on Lasix 40 mg IV twice daily. She is nonoliguric. She is also being treated for UTI. Urine cultures positive for E. coli and enterococcus. Currently having a midline placed. Vital signs are stable. General: The patient appeared well nourished and normally developed. HEENT: Head exam is unremarkable. Neck is without jugular venous distension. LUNGS: Breath sounds decreased. Scattered rhonchi. HEART: Rate and Rhythm are regular. First and second heart sounds normal. No murmurs, rubs or gallops. ABDOMEN: Abdominal exam reveals normal bowel sounds. Non-tender and non- distended. No evidence of peritonitis. EXTREMITITES: 1+ edema. Objective - Vital Signs Vital signs: Vital Signs Temp 98 F 06/18/18 07:00 Pulse 108 H 06/18/18 08:00 Resp 14 06/18/18 07:00 BP 166/83 06/18/18 07:00 Pulse Ox 90 L 06/18/18 07:00 Intake & Output 06/17/18 06/18/18 06/18/18 18:59 06:59 18:59 Intake Total 594 470 240 Output Total 700 850 Balance -106 -380 240 Weight 65.5 kg Intake: Oral 594 470 240 Output: Urine 700 850 Other: Voiding Method Indwelling Catheter Indwelling Catheter - Labs CBC & Chem 7: 06/14/18 06:53 06/18/18 06:55 Labs: Abnormal Lab Results - Last 24 Hours (Table) 06/17/18 06/17/18 06/18/18 Range/Units 12:06 20:25 06:55 Chloride 95 L (98-107) mmol/L Carbon Dioxide 39 H (22-30) mmol/L BUN 86 H (7-17) mg/dL Creatinine 1.99 H (0.52-1.04) mg/dL Glucose 131 H (74-99) mg/dL POC Glucose (mg/dL) 167 H 237 H (75-99) mg/dL 06/18/18 Range/Units 07:19 Chloride (98-107) mmol/L Carbon Dioxide (22-30) mmol/L BUN (7-17) mg/dL Creatinine (0.52-1.04) mg/dL Glucose (74-99) mg/dL POC Glucose (mg/dL) 120 H (75-99) mg/dL Assessment and Plan Plan: Assessment: 1. Nonoliguric acute kidney injury mostly prerenal secondary to cardiorenal syndrome. Renal function improving. Creatinine 1.99 today. 2. Chronic kidney disease stage IV with basic creatinine near 2 secondary to nephrosclerosis and cardiorenal syndrome. 3. Diastolic CHF. 4. Volume overload. Improved. 5. UTI with urine culture positive for ESBL E. coli and enterococcus maintained on antibiotics. 6. History of hypercalcemia maintained on Sensipar. Stable. 7. Hypertension with chronic kidney disease. Blood pressures high. Partially due to steroids. Plan: Maintain Lasix 40 mg IV 2 times daily - will transition to oral tomorrow. Avoid nephrotoxins. Increase hydralazine to 75 mg 3 times daily. Repeat electrolytes in the morning.
[2018-06-18 10:42] VITALS: BMI 25.5
[2018-06-18 12:02] LABS: Glucose,Whole Blood 137 mg/dL (75-99)
--- NOTE | 2018-06-18 13:07 | PN ---
PROGRESS NOTE DATE OF SERVICE: 06/18/2018 REASON FOR FOLLOWUP: 1. ESBL E coli UTI. 2. Possible pneumonia. INTERVAL HISTORY: The patient is currently afebrile. She is breathing comfortably. Denies having any chest pain. No nausea, vomiting, or any diarrhea reported. PHYSICAL EXAMINATION: Blood pressure is 166/83, pulse of 108, temperature 98, she is 90% on room air. General description is an elderly female, lying in bed in no distress. RESPIRATORY SYSTEM: Unlabored breathing, clear to auscultation anteriorly. HEART: S1, S2. Regular rate and rhythm. ABDOMEN: Soft, no tenderness. LABS: Creatinine 1.99. DIAGNOSTIC IMPRESSION AND PLAN: Patient with ESBL Escherichia coli urinary tract infection, also with possible component of pneumonia. Patient is currently covered with Invanz to continue for about a week to finish a course of therapy. She to finish antibiotics at the long term. Continue supportive care. MMODL / IJN: [id number] /
[2018-06-18 14:48] VITALS: BP 159/85; PULSE 99; RESP 16; TEMP 98.1
--- NOTE | 2018-06-18 15:28 | DS ---
DISCHARGE SUMMARY DATE OF DISCHARGE: 06/18/2018 DISCHARGE MEDICINES: 1. Guaifenesin oral solution 200 mg p.o. q.4 hours p.r.n. for cough. 2. Claritin 10 mg daily. 3. Pred Forte 1% 2 drops both eyes q.h.s. 4. Vitamin D 34992 units every month. 5. Milk of magnesia 2400 mg p.r.n. for constipation. 6. Iron sulfate 325 mg p.o. b.i.d. 7. Xalatan 0.005% 1 drop left eye q.h.s. 8. Diamox 250 on Tuesdays. 9. Eliquis 2.5 b.i.d. 10.Sensipar 30 mg daily. 11.DuoNeb updraft q.i.d. 12.Cardizem CD 240 mg daily. 13.Ensure 1 can with meals t.i.d. 14.Lasix 40 mg daily. 15.Mirtazapine 7.5 mg q.h.s. 16.Sodium bicarb 650 p.o. b.i.d. 17.IV Invanz 1 g daily for another 7 days. DISCHARGE DIAGNOSES: 1. Acute kidney injury. 2. Atrial fibrillation, rapid ventricular response. 3. Congestive heart failure exacerbation. 4. Urinary tract infection. 5. Hypothyroidism. 6. Glaucoma. 7. Hypertension. 8. Anemia. 9. Chronic renal disease stage III. 10.Diabetes mellitus. CONDITION: Stable. PROGNOSIS: Guarded. An 82-year-old white female came in with acute tubular necrosis, acute renal insufficiency, prerenal renal failure, ESBL E coli UTI and possible pneumonia, was given IV antibiotics. She was found to have ESBL E coli UTI for which pneumonia Invanz was continued for another 7 [facility] the [facility] living. Continue on current medications. We are giving her no Bowler or no Butrans while in the hospital. She did not require any pain medicine. We are just giving her Xanax 0.25 q.h.s. The patient was stable. Please see further orders. MMODL / IJN: [id number] /
[2018-06-18] MEDS ORDERED: hydrALAZINE HCL 25 MG TAB PO SCH (16:00)
[2018-07-01] MEDS ORDERED: ERGOCALCIFEROL 50,000 UNIT CAP PO SCH (12:00)
== END 2018-06-18 17:00 | DRG 698 ==
LOC: EC 01:46 → 4SSUR 03:42 → 3SCARD 04:05 → 4SSUR 06-14 08:01
PROVIDERS: ADMIT Family Medicine; ATTEND Family Medicine
PROC: 05HC33Z Insertion of Infusion Device into Left Basilic Vein, Percutaneous Approach (ICD-10-PCS; principal; 2018-06-18 08:35)
DX: T83.518A Infection and inflammatory reaction due to other urinary catheter, initial encounter (principal); A41.51 Sepsis due to Escherichia coli [E. coli]; G93.41 Metabolic encephalopathy; I50.33 Acute on chronic diastolic (congestive) heart failure; J69.0 Pneumonitis due to inhalation of food and vomit; J96.21 Acute and chronic respiratory failure with hypoxia; N17.0 Acute kidney failure with tubular necrosis; A41.81 Sepsis due to Enterococcus; N39.0 Urinary tract infection, site not specified; E87.3 Alkalosis; F03.91 Unspecified dementia, unspecified severity, with behavioral disturbance; I13.0 Hypertensive heart and chronic kidney disease with heart failure and stage 1 through stage 4 chronic kidney disease, or unspecified chronic kidney disease; J44.0 Chronic obstructive pulmonary disease with (acute) lower respiratory infection; N18.4 Chronic kidney disease, stage 4 (severe); Z16.12 Extended spectrum beta lactamase (ESBL) resistance; Y84.6 Urinary catheterization as the cause of abnormal reaction of the patient, or of later complication, without mention of misadventure at the time of the procedure; Y95 Nosocomial condition; Z66 Do not resuscitate; D64.9 Anemia, unspecified; E03.9 Hypothyroidism, unspecified; E11.22 Type 2 diabetes mellitus with diabetic chronic kidney disease; E78.5 Hyperlipidemia, unspecified; E86.0 Dehydration; R45.1 Restlessness and agitation; H40.9 Unspecified glaucoma; H91.93 Unspecified hearing loss, bilateral; H54.61 Unqualified visual loss, right eye, normal vision left eye; I48.2 Chronic atrial fibrillation; K21.9 Gastro-esophageal reflux disease without esophagitis; M89.9 Disorder of bone, unspecified; T38.0X5A Adverse effect of glucocorticoids and synthetic analogues, initial encounter; T50.2X5A Adverse effect of carbonic-anhydrase inhibitors, benzothiadiazides and other diuretics, initial encounter; Z79.01 Long term (current) use of anticoagulants; Z79.890 Hormone replacement therapy; Z79.899 Other long term (current) drug therapy; Z80.0 Family history of malignant neoplasm of digestive organs; Z86.711 Personal history of pulmonary embolism; I69.320 Aphasia following cerebral infarction; Z87.440 Personal history of urinary (tract) infections; Z87.730 Personal history of (corrected) cleft lip and palate; Z87.891 Personal history of nicotine dependence; Z90.710 Acquired absence of both cervix and uterus; Z96.652 Presence of left artificial knee joint; Z99.81 Dependence on supplemental oxygen; G47.00 Insomnia, unspecified; M10.9 Gout, unspecified; Z91.81 History of falling; Z87.820 Personal history of traumatic brain injury; J84.10 Pulmonary fibrosis, unspecified; Z82.61 Family history of arthritis; Z84.1 Family history of disorders of kidney and ureter; E83.52 Hypercalcemia; Z87.01 Personal history of pneumonia (recurrent)
CPT/HCPCS: 36410; 36415; 51702; 71045; 76937; 80048; 80053; 81001; 82550; 82553; 83036; 83605; 83735; 83880; 84484; 85025; 85027; 85610; 85730; 87040; 87077; 87086; 87186; 87502; 93005; 93308; 94640; 94660; 94760; 96365; 96366; 96375; 99285

== ENCOUNTER 2018-06-24 08:47 | Inpatient (IN) | payer MEDICARE, OTHER ==
[2018-06-24] MEDS ORDERED: SODIUM CHLORIDE 0.9% 500 ML 500 ML IV ONE (08:54)
[2018-06-24 09:25] LABS: Anisocytosis Slight; Basophils % (A) 0 %; Eosinophils # (A) 0.1 k/uL (0-0.7); Eosinophils % (A) 1 %; HCT 43.7 % (34.0-46.0); HGB 13.7 gm/dL (11.4-16.0); Hypochromasia Slight; Lymphocytes # (A) 0.6 k/uL (1.0-4.8); Lymphocytes % (A) 6 %; MCH 26.5 pg (25.0-35.0); MCHC 31.3 g/dL (31.0-37.0); MCV 84.6 fL (80.0-100.0); Mean Platelet Volume 7.8; Monocytes # (A) 0.6 k/uL (0-1.0); Monocytes % (A) 6 %; Neutrophils # (A) 8.7 k/uL (1.3-7.7); Neutrophils % (A) 85 %; Platelet Count 260 k/uL (150-450); RBC 5.16 m/uL (3.80-5.40); RDW 16.9 % (11.5-15.5); WBC 10.2 k/uL (3.8-10.6)
--- NOTE | 2018-06-24 09:28 | ED ---
General Adult HPI - General Stated complaint: SEIZURE, DEMENTIA Time Seen by Provider: 06/24/18 08:47 Source: family, EMS, RN notes reviewed Mode of arrival: EMS Limitations: altered mental status, physical limitation - History of Present Illness Initial comments: This is a 82-year-old female who comes into the emergency department via EMS. EMS stated that the patient had 2 seizures at the [facility] and one in route. EMS gave the patient 5 of Versed and the seizure stopped. According to the [facility] the patient seizures lasted about 45 seconds apiece. According to the [facility] the patient had no history of seizures but she did have a stroke or possibly a mass in her brain they are not sure. Patient is unable to give any history at this time since she is only responsive to pain. Patient is a DO NOT RESUSCITATE. There is no history of any recent fever no history of any apical to breathing no history of any nausea vomiting diarrhea. - Related Data Home Medications Medication Instructions Recorded Confirmed Fluticasone Nasal [place] [Flonase 1 spray EA NOSTRIL BID@899,209902/16/1706/24 Nasal [place]] Levothyroxine Sodium [Synthroid] 25 mcg PO DAILY@59902/16/17 06/24/18 ALPRAZolam [Xanax] 0.25 mg PO HS@209904/12/17 06/24/18 Loratadine [Claritin] 10 mg PO DAILY@89904/12/17 06/24/18 guaiFENesin [guaiFENesin Oral 200 mg PO Q4HR PRN 04/12/17 06/24/18 Solution] prednisoLONE ACETATE [Pred Forte 2 drop BOTH EYES HS@209904/12/17 06/24/18 1%] Ferrous Sulfate [Feosol] 325 mg PO BID@899,209909/30/17 06/24/18 Latanoprost [Xalatan 0.005%] 1 drop LEFT EYE HS@209909/30/17 06/24/18 acetaZOLAMIDE [Diamox] 250 mg PO TU@89909/30/17 06/24/18 Apixaban [Eliquis] 2.5 mg PO BID@899,209902/24/18 06/24/18 Cinacalcet [Sensipar] 30 mg PO DAILY@59902/24/18 06/24/18 Diltiazem Cd [Cardizem CD] 240 mg PO DAILY@0900 06/09/18 06/24/18 Ensure Clear 1 can PO TID-W/MEALS 06/09/18 06/24/18 Mirtazapine 7.5 mg PO HS@2100 06/09/18 06/24/18 Anti-Fungal Powder 1 applic TOPICAL HS 06/24/18 06/24/18 Insulin Aspart [NovoLOG 2 unit SQ ACHS 06/24/18 06/24/18 (formulary)] Sodium Chloride 0.9% Irrigatio 10 ml IRRIGATION BID 06/24/18 06/24/18 [Saline 0.9% Irrigation] predniSONE See Taper PO DAILY 06/24/18 06/24/18 Previous Rx's Medication Instructions Recorded Acetaminophen Tab [Tylenol] 650 mg PO Q6HR PRN tab 02/20/17 Magnesium Hydroxide [Milk of 2,400 mg PO DAILY PRN ml 04/15/17 Magnesia Concentrate] Ipratropium-Albuterol Nebulize 3 ml INHALATION RT-QID ampul.neb 03/03/18 [Duoneb 0.5 mg-3 mg/3 ml Soln] Ertapenem [INVanz] 0.5 gm IVPB Q24H 7 Days #7 bag 06/18/18 Furosemide [Lasix] 40 mg PO BID #1 tablet 06/18/18 Metoprolol Tartrate [Lopressor] 100 mg PO BID tab 06/18/18 hydrALAZINE HCL [Apresoline] 75 mg PO TID tab 06/18/18 Allergies Allergy/AdvReac Type Severity Reaction Status Date / Time No Known Allergies Allergy Verified 06/24/18 09:11 Review of Systems ROS Statement: Those systems with pertinent positive or pertinent negative responses have been documented in the HPI. ROS Other: All systems not noted in ROS Statement are negative. 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 Yan states pt may have had a CVA or a brain mass but unable to have MRI d/t metal in ear. Last Myocardial Infarction Date:: unknown History of Any Multi-Drug Resistant Organisms: ESBL Date of last positivie culture/infection: 06/09/18 MDRO Source:: ESBL URINE Past Surgical History: Bladder Surgery, Hysterectomy, Joint Replacement, Orthopedic Surgery Additional Past Surgical History / Comment(s): Pt has had multiple surgeries for defects affecting mouth, nose and ears, total L knee arthroplasty, bladder sling, fistula L arm.PARTIAL HYSTERECTOMY, PICC LINE-SINCE REMOVED, L hip cemented hemiarthroplasty. Past Anesthesia/Blood Transfusion Reactions: No Reported Reaction Past Psychological History: No Psychological Hx Reported Smoking Status: Former smoker - Past Family History Father Family Medical History: Cancer Additional Family Medical History / Comment(s): Father prior to age 60 yrs with esophageal cancer. He was a smoker and a drinker. Mother Family Medical History: Osteoarthritis (OA), Renal Disease Additional Family Medical History / Comment(s): kidney problems, specific type unknown General Exam - General Exam Comments Initial Comments: GENERAL: Patient is well-developed and well-nourished. Patient is nontoxic and well- hydrated and is in no acute distress. patient is completely unresponsive except to painful stimuli ENT: Neck is soft and supple. No significant lymphadenopathy is noted. Oropharynx is clear. Moist mucous membranes. Neck has full range of motion without eliciting any pain. EYES: The sclera were anicteric and conjunctiva were pink and moist. Extraocular movements were intact and pupils were equal round and reactive to light. Eyelids were unremarkable. PULMONARY: Unlabored respirations. Good breath sounds bilaterally. No audible rales rhonchi or wheezing was noted. CARDIOVASCULAR: Patient is tachycardic ABDOMEN: Soft and nontender with normal bowel sounds. No palpable organomegaly was noted. There is no palpable pulsatile mass. SKIN: Skin is clear with no lesions or rashes and otherwise unremarkable. NEUROLOGIC: Patient is not alert she does move to painful stimuli. According to EMS this is how they found her with a also since given her Versed. Patient does withdraw to some painful stimuli MUSCULOSKELETAL: Unable to assess range of motion PSYCHIATRIC: Unable to assess Limitations: altered mental status, physical limitation Course Vital Signs 06/24/18 06/24/18 06/24/18 08:54 10:00 10:30 Temperature 98.4 F Pulse Rate 74 93 96 Respiratory 15 Rate Blood Pressure 169/101 164/83 176/89 O2 Sat by Pulse 98 100 100 Oximetry 06/24/18 06/24/18 11:00 11:30 Temperature Pulse Rate 115 H 108 H Respiratory Rate Blood Pressure 198/106 157/111 O2 Sat by Pulse 100 100 Oximetry Medical Decision Making - Medical Decision Making EKG shows atrial fibrillation at a rate of 103 bpm QRS is 94 QT interval 392 QTC is 513. Patient's CT of the brain shows no acute abnormality. I spoke with Dr. Dooley he was okay with accepting the patient. Family agreed the patient was a DO NOT RESUSCITATE. I will admit the patient and place her in a seizure per cautions. I also consult cardiology for the elevated troponin. Patient did receive a gram of Rocephin for urinary tract infection - Lab Data Result diagrams: 06/24/18 09:10 06/24/18 09:10 Lab Results 06/24/18 06/24/18 06/24/18 Range/Units 09:10 09:10 09:10 WBC 10.2 (3.8-10.6) k/uL RBC 5.16 (3.80-5.40) m/uL Hgb 13.7 (11.4-16.0) gm/dL Hct 43.7 (34.0-46.0) % MCV 84.6 (80.0-100.0) fL MCH 26.5 (25.0-35.0) pg MCHC 31.3 (31.0-37.0) g/dL RDW 16.9 H (11.5-15.5) % Plt Count 260 (150-450) k/uL Neutrophils % 85 % Lymphocytes % 6 % Monocytes % 6 % Eosinophils % 1 % Basophils % 0 % Neutrophils # 8.7 H (1.3-7.7) k/uL Lymphocytes # 0.6 L (1.0-4.8) k/uL Monocytes # 0.6 (0-1.0) k/uL Eosinophils # 0.1 (0-0.7) k/uL Basophils # 0.0 (0-0.2) k/uL Hypochromasia Slight Anisocytosis Slight PT (9.0-12.0) sec INR (<1.2) APTT (22.0-30.0) sec Sodium 140 (137-145) mmol/L Potassium 3.6 (3.5-5.1) mmol/L Chloride 103 (98-107) mmol/L Carbon Dioxide 30 (22-30) mmol/L Anion Gap 7 mmol/L BUN 53 H (7-17) mg/dL Creatinine 1.47 H (0.52-1.04) mg/dL Est GFR (CKD-EPI)AfAm 38 (>60 ml/min/1.73 sqM) Est GFR (CKD-EPI)NonAf 33 (>60 ml/min/1.73 sqM) Glucose 103 H (74-99) mg/dL Calcium 9.1 (8.4-10.2) mg/dL Total Bilirubin 1.2 (0.2-1.3) mg/dL AST 28 (14-36) U/L ALT 32 (9-52) U/L Alkaline Phosphatase 82 (38-126) U/L Total Creatine Kinase 23 L (30-135) U/L CK-MB (CK-2) 0.9 (0.0-2.4) ng/mL CK-MB (CK-2) Rel Index 3.9 Troponin I 0.175 H* (0.000-0.034) ng/mL Total Protein 5.6 L (6.3-8.2) g/dL Albumin 3.0 L (3.5-5.0) g/dL Urine Color Urine Appearance (Clear) Urine pH (5.0-8.0) Ur Specific [place] (1.001-1.035) Urine Protein (Negative) Urine Glucose (UA) (Negative) Urine Ketones (Negative) Urine Blood (Negative) Urine Nitrite (Negative) Urine Bilirubin (Negative) Urine Urobilinogen (<2.0) mg/dL Ur Leukocyte Esterase (Negative) Urine RBC (0-5) /hpf Urine WBC (0-5) /hpf Urine WBC Clumps (None) /hpf Urine Bacteria (None) /hpf Urine Mucus (None) /hpf Urine Opiates Screen (NotDetected) Ur Oxycodone Screen (NotDetected) Urine Methadone Screen (NotDetected) Ur Propoxyphene Screen (NotDetected) Ur Barbiturates Screen (NotDetected) U Tricyclic Antidepress (NotDetected) Ur Phencyclidine Scrn (NotDetected) Ur Amphetamines Screen (NotDetected) U Methamphetamines Scrn (NotDetected) U Benzodiazepines Scrn (NotDetected) Urine Cocaine Screen (NotDetected) U Marijuana (THC) Screen (NotDetected) 06/24/18 06/24/18 Range/Units 09:10 09:30 WBC (3.8-10.6) k/uL RBC (3.80-5.40) m/uL Hgb (11.4-16.0) gm/dL Hct (34.0-46.0) % MCV (80.0-100.0) fL MCH (25.0-35.0) pg MCHC (31.0-37.0) g/dL RDW (11.5-15.5) % Plt Count (150-450) k/uL Neutrophils % % Lymphocytes % % Monocytes % % Eosinophils % % Basophils % % Neutrophils # (1.3-7.7) k/uL Lymphocytes # (1.0-4.8) k/uL Monocytes # (0-1.0) k/uL Eosinophils # (0-0.7) k/uL Basophils # (0-0.2) k/uL Hypochromasia Anisocytosis PT 10.2 (9.0-12.0) sec INR 0.9 (<1.2) APTT 20.7 L (22.0-30.0) sec Sodium (137-145) mmol/L Potassium (3.5-5.1) mmol/L Chloride (98-107) mmol/L Carbon Dioxide (22-30) mmol/L Anion Gap mmol/L BUN (7-17) mg/dL Creatinine (0.52-1.04) mg/dL Est GFR (CKD-EPI)AfAm (>60 ml/min/1.73 sqM) Est GFR (CKD-EPI)NonAf (>60 ml/min/1.73 sqM) Glucose (74-99) mg/dL Calcium (8.4-10.2) mg/dL Total Bilirubin (0.2-1.3) mg/dL AST (14-36) U/L ALT (9-52) U/L Alkaline Phosphatase (38-126) U/L Total Creatine Kinase (30-135) U/L CK-MB (CK-2) (0.0-2.4) ng/mL CK-MB (CK-2) Rel Index Troponin I (0.000-0.034) ng/mL Total Protein (6.3-8.2) g/dL Albumin (3.5-5.0) g/dL Urine Color Yellow Urine Appearance Cloudy H (Clear) Urine pH 5.5 (5.0-8.0) Ur Specific [place] 1.013 (1.001-1.035) Urine Protein 2+ H (Negative) Urine Glucose (UA) Negative (Negative) Urine Ketones Negative (Negative) Urine Blood Small H (Negative) Urine Nitrite Negative (Negative) Urine Bilirubin Negative (Negative) Urine Urobilinogen 2.0 (<2.0) mg/dL Ur Leukocyte Esterase Large H (Negative) Urine RBC 34 H (0-5) /hpf Urine WBC 61 H (0-5) /hpf Urine WBC Clumps Few H (None) /hpf Urine Bacteria Moderate H (None) /hpf Urine Mucus Rare H (None) /hpf Urine Opiates Screen Not Detected (NotDetected) Ur Oxycodone Screen Not Detected (NotDetected) Urine Methadone Screen Not Detected (NotDetected) Ur Propoxyphene Screen Not Detected (NotDetected) Ur Barbiturates Screen Not Detected (NotDetected) U Tricyclic Antidepress Not Detected (NotDetected) Ur Phencyclidine Scrn Not Detected (NotDetected) Ur Amphetamines Screen Not Detected (NotDetected) U Methamphetamines Scrn Not Detected (NotDetected) U Benzodiazepines Scrn Not Detected (NotDetected) Urine Cocaine Screen Not Detected (NotDetected) U Marijuana (THC) Screen Not Detected (NotDetected) Disposition Clinical Impression: Urinary tract infection, New onset seizure, Altered mental status, Non-STEMI ( non-ST elevated myocardial infarction) Disposition: ADMITTED IP TO THIS HOSP Referrals: Pablo Dooley MD [Primary Care Provider] - 1-2 days Time of Disposition: 12:07
[2018-06-24 09:36] LABS: Calcium 9.1 mg/dL (8.4-10.2); Potassium 3.6 mmol/L (3.5-5.1); Total Bilirubin 1.2 mg/dL (0.2-1.3); Total Protein 5.6 g/dL (6.3-8.2)
[2018-06-24 09:44] LABS: INR 0.9 (<1.2); Prothrombin Time 10.2 sec (9.0-12.0)
[2018-06-24 09:55] LABS: Partial Thromboplastin Time 20.7 sec (22.0-30.0)
[2018-06-24 09:58] LABS: Creatine Kinase MB 0.9 ng/mL (0.0-2.4)
[2018-06-24 10:02] LABS: Amphetamine Screen,Urine Not Detected (NotDetected); Barbiturate Screen,Urine Not Detected (NotDetected); Benzodiazepines Screen,Urine Not Detected (NotDetected); Cocaine Screen,Urine Not Detected (NotDetected); Methadone Screen, Urine Not Detected (NotDetected); Opiate Screen,Urine Not Detected (NotDetected); Oxycodone Screen, Urine Not Detected (NotDetected); Phencyclidine Screen,Urine Not Detected (NotDetected); Tricyclic Antidepressant,Urine Not Detected (NotDetected); Urn Cannabinoid Scrn Not Detected (NotDetected)
[2018-06-24 10:08] LABS: Appearance,Urine Cloudy (Clear); Bacteria,Urine Moderate /hpf; Bilirubin,Urine Negative (Negative); Blood,Urine Small (Negative); Color,Urine Yellow; Glucose,Urine (UA) Negative (Negative); Ketones,Urine Negative (Negative); Leukocyte Esterase,Urine Large (Negative); Mucus,Urine Rare /hpf; Nitrite,Urine Negative (Negative); PH, Urine 5.5 (5.0-8.0); Protein,Urine 2+ (Negative); RBC,Urine 34 /hpf (0-5); Specific Gravity,Urine 1.013 (1.001-1.035); WBC,Urine 61 /hpf (0-5)
[2018-06-24 10:10] LABS: Troponin I 0.175 ng/mL (0.000-0.034)
--- NOTE | 2018-06-24 10:10 | CT ---
EXAMINATION TYPE: CT brain wo con DATE OF EXAM: 06/24/2018 HISTORY: Seizure, dementia CT DLP: 1043.4 mGycm. Automated Exposure Control for Dose Reduction was Utilized. TECHNIQUE: CT scan of the head is performed without contrast. COMPARISON: CT brain February 27, 2018 and older CTs FINDINGS: There is no acute intracranial hemorrhage or midline shift identified. There is diffuse v entricular and sulcal prominence consistent with diffuse age-related cerebral atrophy. There is low- attenuation in the periventricular white matter consistent with chronic small vessel ischemic change. Involving subacute on chronic infarct left parietal lobe with superior temporal extension posterior watershed region is noted. The globes are intact and the visualized sinuses are clear. IMPRESSION: No acute intracranial hemorrhage or midline shift. 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
[2018-06-24] MEDS ORDERED: SODIUM CHLORIDE 0.9% 1,000 ML IV ONE (12:07)
[2018-06-24] MEDS ORDERED: NITROGLYCERIN OINT 1 INCH/GM PACKET TOPICAL STA (12:09)
[2018-06-24] MEDS ORDERED: ASPIRIN 300 MG SUPP RECTAL STA (12:10)
--- NOTE | 2018-06-24 12:13 | XR ---
EXAMINATION TYPE: XR chest 2V DATE OF EXAM: 06/24/2018 COMPARISON: Chest x-ray June 11, 2018 HISTORY: Altered mental status and weakness. TECHNIQUE: Frontal and lateral views of the chest are obtained. FINDINGS: The cardiac silhouette size is stable and mildly enlarged. There is persistent small right greater than left pleural effusions with associated right greater than left bibasilar atelectasis an d/or infiltrate. There is background chronic reticular interstitial prominence redemonstrated. The os seous structures remain demineralized. Degenerative change right shoulder is again seen. IMPRESSION: Cannot exclude CHF exacerbation as there is persistent mild cardiomegaly with small righ t greater than left bilateral pleural effusions and associated bibasilar atelectasis and/or infiltrat e all redemonstrated. Correlate clinically.
[2018-06-24] MEDS ORDERED: METOPROLOL TARTRATE 5 MG/5 ML VIAL IVP PRN (17:12)
[2018-06-24] MEDS ORDERED: MAGNESIUM HYDROXIDE 2,400 MG/10 ML CUP PO PRN (19:05)
[2018-06-24] MEDS: IPRATROPIUM-ALBUTEROL 3 ML NEB INHALATION SCH (21:11)
[2018-06-24] MEDS: NITROGLYCERIN OINT 1 INCH/GM PACKET TOPICAL SCH (22:27)
[2018-06-24] MEDS: hydrALAZINE HCL 20 MG/ML 1 ML VIAL IVP PRN (22:28)
[2018-06-24 22:39] LABS: Glucose,Whole Blood 78 mg/dL (75-99)
--- NOTE | 2018-06-24 22:54 | HP ---
HISTORY AND PHYSICAL CHIEF COMPLAINT: 82-year-old white female comes to the ER for 2 [facility], 1 [facility] route. She is given 5 mg of Versed for seizures. Stopped the seizure, 45 seconds a piece. She is DNR per family. Do not resuscitate. At which time ER doctor admitted her to the hospital. CT scan of her head was negative for any mass or any bleed. She is admitted to the hospital, started on home medications, hypertension acceleration was treated with home medications. ALLERGIES: Negative. REVIEW OF SYMPTOMS: 14 point review of systems negative except for mentioned in HPI. She does respond to talk and does open her eyes and focus on you. She cannot hear, she has no hearing aid. PAST MEDICAL HISTORY: Atrial fibrillation, heart failure, COPD, dementia, GERD, dyslipidemia, hypertension, pneumonia, renal disease, hypothyroidism, glaucoma, hearing aid, pulmonary fistula, hypothyroidism, gout, insomnia, history of ESBL in the urine. SURGICAL HISTORY: Bladder surgery, hysterectomy, joint replacement, orthopedic surgery. FAMILY HISTORY: Father with esophageal cancer. Mother with osteoarthritis, renal disease. PHYSICAL EXAM: Well nourished, well developed female, responding appropriately. LUNGS: Clear. Cardiovascular slightly tachycardic. ABDOMEN: Soft. Skin is with no rash, excoriations or bruising. OPHTHALMOLOGIC: Pupils equal, round, react to light and accommodation. NEUROLOGIC: She responds to loud talk as she cannot hear. PSYCH: Unable to assess. VITAL SIGNS: Temp 98.4, pulse 70s to 90s, blood pressure is 160s to 170s over 80s to 100s. O2 98-100 percent on room air. EKG shows atrial fibrillation. BUN is 53, creatinine 1.47. Troponin 0.175. CPKs are negative. ASSESSMENT/PLAN: 1. New onset seizure. CT scan of brain is negative. 2. Possible urinary tract infection, not treated. Urine culture. 3. She will continue with IV medications that she was on at the prison and continue current treatment. 4. Await possible starts empiric seizure medicines like Depakote and monitor for seizures. No clear etiology for seizures. 5. She has been on Invanz for a drug-resistant urinary tract infection for which we will consult Dr. Alejandre. MMODL / IJN: [id number] /
[2018-06-25] MEDS: METOPROLOL TARTRATE 50 MG TAB PO SCH ×3 (00:41→21:13)
[2018-06-25] MEDS: FUROSEMIDE 40 MG TAB PO SCH ×4 (00:41→16:07)
[2018-06-25] MEDS: LATANOPROST 0.005% OPHTH DROPS 2.5 ML BTL LEFT EYE SCH ×2 (00:41→21:13)
[2018-06-25] MEDS: FLUTICASONE 50MCG/SPRAY NASAL 16GM EA NOSTRIL SCH ×3 (00:41→21:13)
[2018-06-25] MEDS: ALPRAZolam 0.25 MG TAB PO SCH ×2 (00:41→21:13)
[2018-06-25] MEDS: APIXABAN 2.5 MG TABLET PO SCH ×4 (00:41→21:13)
[2018-06-25] MEDS: INSULIN ASPART 100 UNIT/ML 1 ML 10 ML VIAL SQ SCH ×5 (00:41→21:13)
[2018-06-25] MEDS: MIRTAZAPINE 15 MG TAB PO SCH ×2 (00:42→21:13)
[2018-06-25] MEDS: NYSTATIN 100,000 UNIT/GM POWD 15 GM TOPICAL SCH ×2 (00:42→21:13)
[2018-06-25] MEDS: hydrALAZINE HCL 25 MG TAB PO SCH ×5 (00:42→21:14)
[2018-06-25] MEDS: prednisoLONE ACETATE 1% OPHTH DROPS 5 ML BTL BOTH EYES SCH ×2 (00:42→21:13)
[2018-06-25] MEDS: NITROGLYCERIN OINT 1 INCH/GM PACKET TOPICAL SCH ×5 (00:43→23:52)
[2018-06-25] MEDS: CINACALCET 30 MG TAB PO SCH (07:23)
[2018-06-25] MEDS: LEVOTHYROXINE 25 MCG TAB PO SCH (07:23)
[2018-06-25] MEDS ORDERED: NON-FORMULARY DRUG (Ensure Clear 1 CAN) PO SCH (07:30)
[2018-06-25] MEDS: IPRATROPIUM-ALBUTEROL 3 ML NEB INHALATION SCH ×4 (07:50→21:12)
[2018-06-25] MEDS ORDERED: ASPIRIN 300 MG SUPP RECTAL SCH (09:00)
[2018-06-25] MEDS ORDERED: DILTIAZEM CD 240 MG CAP.ER.24H PO SCH (09:00)
[2018-06-25] MEDS: LORATADINE 10 MG TAB PO SCH (09:34)
[2018-06-25] MEDS: FERROUS SULFATE 325 MG TAB PO SCH ×3 (09:34→21:13)
[2018-06-25] MEDS: DIVALPROEX 250 MG TABLET.DR PO SCH ×3 (09:34→21:13)
--- NOTE | 2018-06-25 09:55 | P.CRDCN ---
History of Present Illness Consult date: 06/25/18 Chief complaint: Change in mental status History of present illness: This is an 82-year-old female patient who is known to our service before with a past medical history significant for chronic persistent atrial fibrillation on oral anticoagulation as well as history of congestive heart failure secondary to diastolic dysfunction was brought from an extended-care facility today emergency room after she had a seizure. The patient did have to episodes of seizure. The first episode was at the [facility] and the second one was in route to the hospital. The patient is known to have seizure disorder and she is on medications for that. When I came in to interview the patient, the patient was lethargic and confused. She is overall very poor historian. No indication of any chest pain or chest discomfort. The patient was laying flat in bed. She does not seems to be in any acute respiratory distress. The EKG showed atrial fibrillation without any ischemic ST or T-wave abnormalities. 3 sets of enzymes came in to be slightly abnormal but are below 1 and likely related to the tachycardia and the patient presented to the hospital. The chest x-ray showed findings consistent with CHF but the patient does not seems to be in congestive heart failure exacerbation at this point. Patient underwent an echocardiogram in March 2018 and that revealed normal LV function without any significant valvular abnormalities. Currently the patient is on aspirin as well as she is on oral anticoagulation with Eliquis. Past Medical History Past Medical History: Atrial Fibrillation, Heart Failure, COPD, Dementia, GERD/ Reflux, Hyperlipidemia, Hypertension, Pneumonia, Renal Disease, Respiratory Disorder, Thyroid Disorder Additional Past Medical History / Comment(s): Pt recently admitted to [facility] on 06/09/18 with acute tubular necresis/acute renal insufficiency/prerenal real failure , WSBL-Ecoli UTI. Other hx: Pt was born with cleft palate and other physical problems with facial structures including nasal passages and ear canals (has metal ) and yan at bedside states that the ear canals are collapsing. 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 Yan states pt may have had a CVA or a brain mass but unable to have MRI d/t metal in ear, currently has skin tears L hand and forearm. Last Myocardial Infarction Date:: unknown History of Any Multi-Drug Resistant Organisms: ESBL Date of last positivie culture/infection: 06/09/18 MDRO Source:: ESBL URINE Past Surgical History: Bladder Surgery, Hysterectomy, Joint Replacement, Orthopedic Surgery Additional Past Surgical History / Comment(s): Pt has had multiple surgeries for defects affecting mouth, nose and ears, total L knee arthroplasty, bladder sling, fistula L arm.PARTIAL HYSTERECTOMY, PICC LINE-SINCE REMOVED, L hip cemented hemiarthroplasty. Past Anesthesia/Blood Transfusion Reactions: No Reported Reaction Smoking Status: Former smoker - Past Family History Father Family Medical History: Cancer Additional Family Medical History / Comment(s): Father prior to age 60 yrs with esophageal cancer. He was a smoker and a drinker. Mother Family Medical History: Osteoarthritis (OA), Renal Disease Additional Family Medical History / Comment(s): kidney problems, specific type unknown Medications and Allergies Home Medications Medication Instructions Recorded Confirmed Type Fluticasone Nasal [place] [Flonase 1 spray EA NOSTRIL BID@0900,209902/16/1706/24 History Nasal [place]] Levothyroxine Sodium [Synthroid] 25 mcg PO DAILY@0600 02/16/17 06/24/18 History Acetaminophen Tab [Tylenol] 650 mg PO Q6HR PRN tab 02/20/17 06/24/18 Rx ALPRAZolam [Xanax] 0.25 mg PO HS@209904/12/17 06/24/18 History Loratadine [Claritin] 10 mg PO DAILY@89904/12/17 06/24/18 History guaiFENesin [guaiFENesin Oral 200 mg PO Q4HR PRN 04/12/17 06/24/18 History Solution] prednisoLONE ACETATE [Pred Forte 2 drop BOTH EYES HS@209904/12/17 06/24/18 History 1%] Magnesium Hydroxide [Milk of 2,400 mg PO DAILY PRN ml 04/15/17 06/24/18 Rx Magnesia Concentrate] Ferrous Sulfate [Feosol] 325 mg PO BID@0900,209909/30/17 06/24/18 History Latanoprost [Xalatan 0.005%] 1 drop LEFT EYE HS@2100 09/30/17 06/24/18 History acetaZOLAMIDE [Diamox] 250 mg PO TU@0900 09/30/17 06/24/18 History Apixaban [Eliquis] 2.5 mg PO BID@0900,2100 02/24/18 06/24/18 History Cinacalcet [Sensipar] 30 mg PO DAILY@0600 02/24/18 06/24/18 History Ipratropium-Albuterol Nebulize 3 ml INHALATION RT-QID ampul.neb 03/03/18 Rx [Duoneb 0.5 mg-3 mg/3 ml Soln] Diltiazem Cd [Cardizem CD] 240 mg PO DAILY@0900 06/09/18 06/24/18 History Ensure Clear 1 can PO TID-W/MEALS 06/09/18 06/24/18 History Mirtazapine 7.5 mg PO HS@209906/09/18 06/24/18 History Ertapenem [INVanz] 0.5 gm IVPB Q24H 7 Days #7 bag 06/18/18 06/24/18 Rx Furosemide [Lasix] 40 mg PO BID #1 tablet 06/18/18 06/24/18 Rx Metoprolol Tartrate [Lopressor] 100 mg PO BID tab 06/18/18 06/24/18 Rx hydrALAZINE HCL [Apresoline] 75 mg PO TID tab 06/18/18 06/24/18 Rx Anti-Fungal Powder 1 applic TOPICAL HS 06/24/18 06/24/18 History Insulin Aspart [NovoLOG 2 unit SQ ACHS 06/24/18 06/24/18 History (formulary)] Sodium Chloride 0.9% Irrigatio 10 ml IRRIGATION BID 06/24/18 06/24/18 History [Saline 0.9% Irrigation] predniSONE See Taper PO DAILY 06/24/18 06/24/18 History Allergies Allergy/AdvReac Type Severity Reaction Status Date / Time No Known Allergies Allergy Verified 06/24/18 09:11 Physical Exam Vitals: Vital Signs Temp Pulse Pulse Resp BP BP Pulse Ox 06/25/18 04:00 97.7 F 120 H 20 135/59 91 L 06/25/18 00:00 97.6 F 109 H 20 187/80 95 06/24/18 22:40 187/80 06/24/18 22:35 165/85 06/24/18 22:30 191/102 06/24/18 21:20 96 06/24/18 21:12 100 06/24/18 20:00 97.4 F L 86 20 195/99 96 06/24/18 17:47 98.4 F 99 18 152/98 93 L 06/24/18 17:00 105 H 18 173/110 92 L 06/24/18 16:30 96 18 172/116 100 06/24/18 16:00 97.6 F 101 H 95 20 158/95 183/85 90 L 06/24/18 15:30 104 H 18 200/112 100 06/24/18 15:00 89 153/97 94 L 06/24/18 14:00 98 16 157/90 96 06/24/18 13:30 94 18 168/83 98 06/24/18 13:00 98 16 157/102 96 06/24/18 12:30 102 H 16 170/90 96 06/24/18 11:30 108 H 157/111 100 06/24/18 11:00 115 H 198/106 100 06/24/18 10:30 96 176/89 100 06/24/18 10:00 93 164/83 100 Intake and Output 06/24/18 06/25/18 06/25/18 22:59 06:59 14:59 Intake Total 675 Output Total 1999 -1999 675 Intake: IV 675 Sodium Chloride 0.9% 1, 675 000 ml @ 75 mls/hr IV . [id number] ONE Rx#:[id number] Output: Urine 1999 Other: Voiding Method Indwelling Catheter Indwelling Catheter Weight 70 kg - Constitutional General appearance: no acute distress - Respiratory Respiratory: left: diminished - Cardiovascular Rhythm: irregularly irregular Heart sounds: normal: S1, S2 Results 06/24/18 09:10 06/24/18 09:10 Cardiac Enzymes 06/24/18 06/24/18 06/24/18 Range/Units 09:10 14:24 21:13 CK-MB (CK-2) 0.9 (0.0-2.4) ng/mL Troponin I 0.175 H* 0.154 H* 0.127 H* (0.000-0.034) ng/mL Coagulation 06/24/18 Range/Units 09:10 PT 10.2 (9.0-12.0) sec APTT 20.7 L (22.0-30.0) sec Current Medications Generic Name Dose Route Start Last Admin Trade Name Freq PRN Reason Stop Dose Admin Acetaminophen 650 mg 06/24/18 19:05 Tylenol Tab PO Q6HR PRN Mild Pain or Fever > 100.5 Acetazolamide 250 mg 07/01/18 09:00 Diamox PO TU@0900 [facility] Albuterol/Ipratropium 3 ml 06/24/18 20:00 06/25/18 07:50 Duoneb 0.5 Mg-3 Mg/3 Ml Soln INHALATION Not Given RT-QID [facility] Alprazolam 0.25 mg 06/24/18 21:00 06/25/18 00:41 Xanax PO Not Given HS@2100 [facility] Apixaban 2.5 mg 06/24/18 21:00 06/25/18 09:34 Eliquis PO 2.5 mg BID@0900,2100 [facility] Administration Cinacalcet 30 mg 06/25/18 06:00 06/25/18 07:23 Sensipar PO Not Given DAILY@0600 [facility] Diltiazem HCl 240 mg 06/25/18 09:00 06/25/18 09:34 Cardizem Cd PO 240 mg DAILY@0900 [facility] Administration Divalproex Sodium 250 mg 06/25/18 09:00 06/25/18 09:34 Depakote PO 250 mg BID [facility] Administration Ferrous Sulfate 325 mg 06/25/18 09:00 06/25/18 09:34 Feosol PO 325 mg BID@0900,2100 [facility] Administration Fluticasone Propionate 1 spray 06/24/18 21:00 06/25/18 09:31 Flonase Nasal [place] EA NOSTRIL Not Given BID@0900,2100 [facility] Furosemide 40 mg 06/24/18 21:00 06/25/18 09:34 Lasix PO 40 mg 0900,1700 [facility] Administration Hydralazine HCl 75 mg 06/24/18 22:00 06/25/18 09:34 Apresoline PO 75 mg TID [facility] Administration Hydralazine HCl 10 mg 06/24/18 22:19 06/24/18 22:28 Apresoline IVP 10 mg Q6HR PRN Administration Blood Pressure - High Ceftriaxone Sodium 1,000 mg/ 50 mls @ 100 mls/hr 06/25/18 09:00 06/25/18 09: 35 Sodium Chloride IVPB 100 mls/hr Q24HR DEEPTI Administration Insulin Aspart 2 unit 06/24/18 21:00 06/25/18 07:23 Novolog SQ Not Given ACHS [facility] Latanoprost 1 drops 06/24/18 21:00 06/25/18 00:41 Xalatan 0.005% LEFT EYE Not Given HS@2100 [facility] Levothyroxine Sodium 25 mcg 06/25/18 06:00 06/25/18 07:23 Synthroid PO Not Given DAILY@0600 [facility] Loratadine 10 mg 06/25/18 09:00 06/25/18 09:34 Claritin PO 10 mg DAILY@0900 [facility] Administration Magnesium Hydroxide 2,400 mg 06/24/18 19:05 Milk Of Magnesia PO DAILY PRN Constipation Metoprolol Tartrate 2.5 mg 06/24/18 17:12 06/24/18 17:24 Lopressor IVP 2.5 mg Q6HR PRN Administration Blood Pressure - High Metoprolol Tartrate 100 mg 06/24/18 21:00 06/25/18 09:34 Lopressor PO 100 mg BID [facility] Administration Mirtazapine 7.5 mg 06/24/18 21:00 06/25/18 00:42 Remeron PO Not Given HS@2100 [facility] Nitroglycerin 1 inch 06/24/18 18:00 06/25/18 07:45 Nitro-Bid Oint TOPICAL Not Given Q6HR [facility] Nystatin 1 applic 06/24/18 21:00 06/25/18 00:42 Mycostatin Powder TOPICAL Not Given [facility] Prednisolone Acetate 2 drops 06/24/18 21:00 06/25/18 00:42 Pred Forte 1% BOTH EYES Not Given HS@2100 [facility] Intake and Output 06/24/18 06/25/18 06/25/18 22:59 06:59 14:59 Intake Total 675 Output Total 1999 Balance -1999 Intake: IV 675 Sodium Chloride 0.9% 1, 675 000 ml @ 75 mls/hr IV . [id number] ONE Rx#:[id number] Output: Urine 1999 Other: Voiding Method Indwelling Catheter Indwelling Catheter Weight 70 kg 06/24/18 09:10 06/24/18 09:10 Assessment and Plan Assessment: Assessment #1 recurrent seizure. The patient is known to have seizure #2 chronic persistent atrial fibrillation. The heart rate seems to be not well- controlled #3 CHF secondary to diastolic dysfunction, chronic. Plan #1 conservative medical approach for the abnormal cardiac enzymes #2 the patient does not seems to be in any overt congestive heart failure #3 I would increase the dose of Cardizem CD for better heart rate control #4 no need to repeat the echocardiogram in view of recent echo was performed a few months ago #5 follow-up with the patient. Thank you for allowing us participate in her care and we'll continue following up with
[2018-06-25] MEDS: DILTIAZEM 50 MG in SODIUM CHLORIDE 0.9% 40 ML IV SCH (18:49)
[2018-06-25 21:06] LABS: Glucose,Whole Blood 85 mg/dL (75-99)
--- NOTE | 2018-06-26 01:14 | PN ---
PROGRESS NOTE SUBJECTIVE: 82-year-old white female with new onset seizure and metabolic encephalopathy. She is refusing medications, refusing blood pressure checks. Shouting at all nurses and family members. Discussed case with her daughter who is power of district attorney. We started Depakote for seizures. Family is in agreement with sending the [facility] the [facility] with treatment for UTI and possible comfort care versus just letting her do what she wants [facility] in the [facility]. She is DNR and she is not getting better from a confusion standpoint which she has had for many weeks now. Possible hosp[facility] care at the [facility]. MMODL / IJN: [id number] /
[2018-06-26 05:43] LABS: Glucose,Whole Blood 89 mg/dL (75-99)
[2018-06-26] MEDS: DILTIAZEM 50 MG in SODIUM CHLORIDE 0.9% 40 ML IV SCH ×3 (06:39→20:26)
[2018-06-26] MEDS: LEVOTHYROXINE 25 MCG TAB PO SCH (06:40)
[2018-06-26] MEDS: INSULIN ASPART 100 UNIT/ML 1 ML 10 ML VIAL SQ SCH ×4 (06:40→20:56)
[2018-06-26] MEDS: CINACALCET 30 MG TAB PO SCH (06:40)
[2018-06-26] MEDS: NITROGLYCERIN OINT 1 INCH/GM PACKET TOPICAL SCH ×4 (06:40→23:23)
[2018-06-26] MEDS: IPRATROPIUM-ALBUTEROL 3 ML NEB INHALATION SCH ×4 (07:41→19:25)
--- NOTE | 2018-06-26 08:36 | CONS ---
CONSULTATION DATE OF SERVICE: 06/25/2018 REASON FOR CONSULTATION: 1. Urinary tract infection. 2. Sacral wound. HISTORY OF PRESENT ILLNESS: Patient is an 82-year-old female, who was recently admitted to this institution. Patient did have a urinary tract infection and was positive for ESBL E coli. There was also concern for possible pneumonia. Patient subsequently did get to [facility] and was discharged to the group home on 1 week course of IV Invanz 500 mg daily. Patient has now been brought to the [facility]. The patient did have 2 seizures at the group home and 1 on route to the ER. Patient subsequently has been evaluated by the ER physician. She did have CT of the brain. It did not show any infarct or structural lesion. Patient's chest x-ray has been suggestive of possible congestive heart failure with cardiomegaly and bilateral pleural effusion and as well as bibasilar atelectasis. She did have a positive UA. Patient was started on Rocephin and admitted to the hospital. ID was consulted for further recommendation for antibiotic therapy. Patient not a very good historian and would not provide any history. She also noticed to have wound on the sacral area. Patient refused to be examined today. REVIEW OF SYSTEMS: Could not be reliably obtained. Positive points have been mentioned in HPI. PAST MEDICAL HISTORY: Recurrent urinary tract infection with recent urine positive for ESBL E coli, COPD, dementia, hypertension, hyperlipidemia, pneumonia, hypothyroidism. PAST SURGICAL HISTORY: Hysterectomy, bladder surgery, left knee arthroplasty. SOCIAL HISTORY: Remote history of smoking, no drug use. Currently a group home resident. FAMILY HISTORY: Father of esophageal cancer. Mother with history of prior arthritis on osteoarthritis. ALLERGIES: No known drug allergies. MEDICATION: Include the patient is currently on Tylenol, Diamox, Xanax, Eliquis, Rocephin 1 g daily, Sensipar, diltiazem, iron sulfate, Flonase, Lasix, hydralazine, NovoLog, Synthroid, Claritin, Lopressor, Remeron. PHYSICAL EXAMINATION: blood pressure is 150/70 with a pulse of 125, temperature of 98, she is 90% on room air. General description is an elderly female, lying in bed in no distress. No tachypnea or accessory muscle for respiration use. HEENT: Shows no pallor or scleral icterus. Oral mucosa is dry. No further erythema or thrush. NECK: Trachea central, no thyromegaly. LUNGS: Unlabored breathing, decreased breath sounds in the bases, no wheeze. HEART: S1, S2. Regular sound. ABDOMEN: Soft, no tenderness, no guarding or rigidity. EXTREMITIES: No edema of the feet. SKIN EXAMINATION: No rash or mass palpable. NEUROLOGICAL: Patient is lethargic, though responds, but no . LABS: Hemoglobin is 13.7, white count 10.2, BUN of 53, creatinine 1.47. Troponin were positive. Urine is positive with large . Urine drug screen was negative. Chest x-ray possible CHF. DIAGNOSTIC IMPRESSION/PLAN: 1. Patient admitted to the hospital with seizure activities. This patient currently who was undergoing treatment for an ESBL Escherichia coli urinary tract infection infection with Invanz and could be related to carbapenems that has been discontinued. 2. Patient who did have a positive UA that has been obtained from the Urban catheter, question of possible folic colonization versus a urinary tract infection. 3. Patient with sacral pressure ulcer where the patient has refused to be examined. PLAN: 1. Will change her Urban catheter and obtain a urine culture from the new Urban. 2. Rocephin to continue for now. 3. sacral wound and keep the area off the pressure. 4. Follow up on clinical condition and culture to further adjust medication if needed. Thank you for this consultation. Will follow this patient along with you. MMODL / IJN: [id number] /
--- NOTE | 2018-06-26 08:37 | P.PN ---
Subjective Progress Note Date: 06/26/18 Principal diagnosis: Atrial fibrillation This is an 82-year-old female patient who is known to our service before with a past medical history significant for chronic persistent atrial fibrillation on oral anticoagulation as well as history of congestive heart failure secondary to diastolic dysfunction was brought from an extended-care facility today emergency room after she had a seizure. The patient did have to episodes of seizure. [facility] and the second one was in route to the hospital. The patient is known to have seizure disorder and she is on medications for that. When I came in to interview the patient, the patient was lethargic and confused. She is overall very poor historian. No indication of any chest pain or chest discomfort. The patient was laying flat in bed. She does not seems to be in any acute respiratory distress. The EKG showed atrial fibrillation without any ischemic ST or T-wave abnormalities. 3 sets of enzymes came in to be slightly abnormal but are below 1 and likely related to the tachycardia and the patient presented to the hospital. The chest x-ray showed findings consistent with CHF but the patient does not seems to be in congestive heart failure exacerbation at this point. Patient underwent an echocardiogram in March 2018 and that revealed normal LV function without any significant valvular abnormalities. On follow-up with the patient today, June 262018, the patient is very confused. She is combative as well. She is refusing to take her by mouth medications. Because of that last night she was started on Cardizem IV. She continues to be in atrial fibrillation with uncontrolled heart rates. I am going to increase the dose of Cardizem IV for better heart rate control. I do feel that the patient's need to be assessed for possible hospice. Objective - Vital Signs Vital signs: Vital Signs Temp 97.9 F 06/25/18 09:52 Pulse 110 H 06/26/18 04:00 Resp 18 06/26/18 04:00 BP 172/84 06/26/18 04:00 Pulse Ox 87 L 06/26/18 04:00 Intake & Output 06/25/18 06/26/18 06/26/18 18:59 06:59 18:59 Intake Total 50 153.417 Output Total 1999 Balance 50 -2506.583 Weight 70 kg 76 kg Intake: Intake, IV Titration 50 33.417 Amount Diltiazem 50 mg In Sodium 33.417 Chloride 0.9% 40 ml @ 5 MG/HR 5 mls/hr IV .Q10H DEEPTI Rx#:[id number] cefTRIAXone 1,000 mg In 50 Sodium Chloride 0.9% 50 ml @ 100 mls/hr IVPB Q24HR DEEPTI Rx#:[id number] Oral 120 Output: Urine 2000 Other: Voiding Method Indwelling Catheter Indwelling Catheter # Voids 1 - Constitutional General appearance: Present: no acute distress - Respiratory Respiratory: bilateral: diminished - Cardiovascular Rhythm: irregularly irregular Heart sounds: normal: S1, S2 - Labs CBC & Chem 7: 06/24/18 09:10 06/24/18 09:10 Assessment and Plan Assessment: Assessment #1 recurrent seizure. The patient is known to have seizure #2 chronic persistent atrial fibrillation. The heart rate seems to be not well- controlled #3 CHF secondary to diastolic dysfunction, chronic. Plan #1 conservative medical approach for the abnormal cardiac enzymes #2 the patient does not seems to be in any overt congestive heart failure #3 increase the dose of Cardizem IV to control the heart rate #4 no need to repeat the echocardiogram in view of recent echo was performed a few months ago #5 the patient's need to be assessed for possible hospice Thank you for allowing us participate in her care and we'll continue following up with
[2018-06-26] MEDS ORDERED: DILTIAZEM CD 180 MG CAP.ER.24H PO SCH (09:00)
[2018-06-26] MEDS: APIXABAN 2.5 MG TABLET PO SCH ×2 (10:42→20:46)
[2018-06-26] MEDS: LORATADINE 10 MG TAB PO SCH (10:43)
[2018-06-26] MEDS: hydrALAZINE HCL 25 MG TAB PO SCH ×3 (10:43→20:46)
[2018-06-26] MEDS: DIVALPROEX 250 MG TABLET.DR PO SCH ×2 (10:43→20:46)
[2018-06-26] MEDS: METOPROLOL TARTRATE 50 MG TAB PO SCH ×2 (10:43→20:46)
[2018-06-26] MEDS: FUROSEMIDE 40 MG TAB PO SCH ×2 (10:43→15:40)
[2018-06-26] MEDS: FERROUS SULFATE 325 MG TAB PO SCH ×2 (10:43→20:46)
[2018-06-26] MEDS: FLUTICASONE 50MCG/SPRAY NASAL 16GM EA NOSTRIL SCH ×2 (10:44→20:47)
[2018-06-26] MEDS: hydrALAZINE HCL 20 MG/ML 1 ML VIAL IVP PRN (12:45)
[2018-06-26 14:50] VITALS: BMI 30.6
[2018-06-26 20:42] LABS: Glucose,Whole Blood 133 mg/dL (75-99)
[2018-06-26 20:46] LABS: Amorphous Sediment,Urine Occasional /hpf; Appearance,Urine Cloudy (Clear); Bacteria,Urine Rare /hpf; Bilirubin,Urine Negative (Negative); Blood,Urine Small (Negative); Color,Urine Yellow; Glucose,Urine (UA) Negative (Negative); Hyaline Casts,Urine 12 /lpf (0-2); Ketones,Urine 1+ (Negative); Leukocyte Esterase,Urine Large (Negative); Mucus,Urine Few /hpf; Nitrite,Urine Negative (Negative); PH, Urine 5.5 (5.0-8.0); Protein,Urine 2+ (Negative); RBC,Urine 9 /hpf (0-5); Specific Gravity,Urine 1.015 (1.001-1.035); Squamous Epithelial Cell,Urine <1 /hpf (0-4); Urobilinogen,Urine <2.0 mg/dL (<2.0)
[2018-06-26] MEDS: ALPRAZolam 0.25 MG TAB PO SCH (20:46)
[2018-06-26] MEDS: MIRTAZAPINE 15 MG TAB PO SCH (20:46)
[2018-06-26] MEDS: LATANOPROST 0.005% OPHTH DROPS 2.5 ML BTL LEFT EYE SCH (20:47)
[2018-06-26] MEDS: prednisoLONE ACETATE 1% OPHTH DROPS 5 ML BTL BOTH EYES SCH (20:47)
[2018-06-26] MEDS: NYSTATIN 100,000 UNIT/GM POWD 15 GM TOPICAL SCH (20:47)
--- NOTE | 2018-06-26 22:51 | PN ---
PROGRESS NOTE DATE OF SERVICE: 06/26/2018 REASON FOR FOLLOWUP: 1. Urinary tract infection. 2. Sacral wound. INTERVAL HISTORY: The patient was more awake this afternoon when she was seen on rounds. However, the patient has been more angry and agitated and has been refusing nasal cannula oxygen. No nausea, no vomiting or any further seizure activity has been noted by the nursing staff or any diarrhea. PHYSICAL EXAMINATION: Blood pressure is 182/88 with a pulse of 97, temperature 97.7. She is 99% on room air. General description is an elderly female up in the bed in no distress. Respiratory system: Unlabored breathing. Clear to auscultation anteriorly. HEART: S1, S2. Regular rate and rhythm. ABDOMEN: Soft. No tenderness. LABS: Repeat UA has been positive after changing the Urban catheter. Cultures are currently pending. DIAGNOSTIC IMPRESSION AND PLAN: Patient admitted to hospital with seizure activity; could have been related to Invanz that the patient has been on for extended-spectrum beta-lactamase Escherichia coli urinary tract infection. The patient's Urban catheter has been changed. Urinary significantly positive. Currently on Rocephin; to continue while waiting for the culture to finalize. Continue with supportive care. MMODL / IJN: [id number] /
--- NOTE | 2018-06-27 00:39 | PN ---
PROGRESS NOTE SUBJECTIVE: 82-year-old white female with urinary tract infection, sacral wound, refusing oxygen. No seizure activity. No diarrhea. Blood pressure 160 to 180s, over 88, temp 97, O2 99% on room air. Cardiovascular: S1, S2. Lungs: Transmitted upper airway sounds. GI: Soft. Hematology: Negative Homans. Psych: Fair mood and affect. IV Ancef she was on at the half-way could have been causing seizure disorder. That was stopped. Depakote was given. Atrial fibrillation medicines will be given. COPD/CHF medicines given. Concerning Rocephin, wait for the final cultures. Possible discharge home in the morning. MMODL / IJN: [id number] /
[2018-06-27] MEDS: DILTIAZEM 50 MG in SODIUM CHLORIDE 0.9% 40 ML IV SCH ×5 (00:50→20:57)
[2018-06-27 06:00] LABS: Glucose,Whole Blood 94 mg/dL (75-99)
[2018-06-27] MEDS: NITROGLYCERIN OINT 1 INCH/GM PACKET TOPICAL SCH ×4 (06:15→23:28)
[2018-06-27] MEDS: LEVOTHYROXINE 25 MCG TAB PO SCH (06:15)
[2018-06-27] MEDS: CINACALCET 30 MG TAB PO SCH (06:15)
[2018-06-27] MEDS: INSULIN ASPART 100 UNIT/ML 1 ML 10 ML VIAL SQ SCH ×4 (06:15→20:57)
[2018-06-27] MEDS: IPRATROPIUM-ALBUTEROL 3 ML NEB INHALATION SCH ×4 (07:33→19:50)
--- NOTE | 2018-06-27 09:09 | P.PN ---
Subjective Progress Note Date: 06/27/18 Principal diagnosis: Atrial fibrillation This is an 82-year-old female patient who is known to our service before with a past medical history significant for chronic persistent atrial fibrillation on oral anticoagulation as well as history of congestive heart failure secondary to diastolic dysfunction was brought from an extended-care facility today emergency room after she had a seizure. The patient did have to episodes of seizure. The first episode was at the senior care and the second one was in route to the hospital. The patient is known to have seizure disorder and she is on medications for that. When I came in to interview the patient, the patient was lethargic and confused. She is overall very poor historian. No indication of any chest pain or chest discomfort. The patient was laying flat in bed. She does not seems to be in any acute respiratory distress. The EKG showed atrial fibrillation without any ischemic ST or T-wave abnormalities. 3 sets of enzymes came in to be slightly abnormal but are below 1 and likely related to the tachycardia and the patient presented to the hospital. The chest x-ray showed findings consistent with CHF but the patient does not seems to be in congestive heart failure exacerbation at this point. Patient underwent an echocardiogram in March 2018 and that revealed normal LV function without any significant valvular abnormalities. On follow-up with the patient today, June 272018, the patient is very confused. She is refusing to take her by mouth medications. Because of that last night she was started on Cardizem IV. She continues to be in atrial fibrillation with controlled heart rates. I do feel that the patient's need to be assessed for possible hospice. Objective - Vital Signs Vital signs: Vital Signs Temp 98.1 F 06/27/18 08:00 Pulse 93 06/27/18 08:00 Resp 20 06/27/18 08:00 BP 144/76 06/27/18 08:00 Pulse Ox 88 L 06/27/18 08:00 Intake & Output 06/26/18 06/27/18 06/27/18 18:59 06:59 18:59 Intake Total 610.583 50 2.917 Output Total 20 350 Balance 590.583 -300 2.917 Weight 76 kg 76 kg Intake: Intake, IV Titration 30.583 50 2.917 Amount Diltiazem 50 mg In Sodium 30.583 50 2.917 Chloride 0.9% 40 ml @ 10 MG/HR 10 mls/hr IV .Q5H [facility] Rx#:[id number] Oral 580 Output: Urine 20 350 Other: Voiding Method Indwelling Catheter Indwelling Catheter - Constitutional General appearance: Present: no acute distress - Respiratory Respiratory: bilateral: diminished - Cardiovascular Rhythm: irregularly irregular Heart sounds: normal: S1, S2 - Labs CBC & Chem 7: 06/24/18 09:10 06/24/18 09:10 Labs: Abnormal Lab Results - Last 24 Hours (Table) 06/26/18 06/26/18 Range/Units 14:45 20:35 POC Glucose (mg/dL) 133 H (75-99) mg/dL Urine Appearance Cloudy H (Clear) Urine Protein 2+ H (Negative) Urine Ketones 1+ H (Negative) Urine Blood Small H (Negative) Ur Leukocyte Esterase Large H (Negative) Urine RBC 9 H (0-5) /hpf Urine WBC >182 H (0-5) /hpf Urine WBC Clumps Many H (None) /hpf Amorphous Sediment Occasional H (None) /hpf Urine Bacteria Rare H (None) /hpf Hyaline Casts 12 H (0-2) /lpf Urine Mucus Few H (None) /hpf Microbiology - Last 24 Hours (Table) 06/26/18 14:45 Urine Culture - Preliminary Urine,Catheterized Assessment and Plan Assessment: Assessment #1 recurrent seizure. The patient is known to have seizure #2 chronic persistent atrial fibrillation. The heart rate seems to be not well- controlled #3 CHF secondary to diastolic dysfunction, chronic. Plan #1 continue the Cardizem IV in view of the patient refusing to take her medications by mouth #2 the patient's need to be evaluated for possible hospice. Thank you for allowing us participate in her care and we'll continue following up with
[2018-06-27] MEDS: METOPROLOL TARTRATE 50 MG TAB PO SCH ×2 (10:06→19:33)
[2018-06-27] MEDS: APIXABAN 2.5 MG TABLET PO SCH ×2 (10:06→19:33)
[2018-06-27] MEDS: DIVALPROEX 250 MG TABLET.DR PO SCH ×2 (10:06→19:33)
[2018-06-27] MEDS: FUROSEMIDE 40 MG TAB PO SCH ×2 (10:11→15:52)
[2018-06-27] MEDS: FERROUS SULFATE 325 MG TAB PO SCH ×2 (10:12→19:33)
[2018-06-27] MEDS: LORATADINE 10 MG TAB PO SCH (10:13)
[2018-06-27] MEDS: hydrALAZINE HCL 25 MG TAB PO SCH ×3 (10:14→21:47)
[2018-06-27] MEDS: FLUTICASONE 50MCG/SPRAY NASAL 16GM EA NOSTRIL SCH ×2 (10:17→19:34)
--- NOTE | 2018-06-27 15:07 | EEG ---
ELECTROENCEPHALOGRAM REPORT DATE OF PROCEDURE: 06/27/2018. ELECTROENCEPHALOGRAM (EEG) REPORT: TECHNIQUE: A routine 18-channel EEG was performed with video using the 10-20 international placement system. HISTORY: Patient presented from a group home with a seizure. Other medical history includes atrial fibrillation, congestive heart failure. STUDY DURATION: 27 minutes. FINDINGS: Please note that quality of the study was limited due to the presence of muscle artifact. BACKGROUND: The background activity consisted of unsustained 7-8 Hz rhythmic waveforms with some intermixed theta range slowing. ACTIVATION: Hyperventilation not performed. PHOTIC STIMULATION: No driving seen. SLEEP: Stages I and II sleep noted. ABNORMALITIES: Intermittent diffuse 4-6 Hz polymorphic theta range slowing was seen. IMPRESSION: Limited study, abnormal EEG. The intermittent polymorphic theta range slowing mentioned above is not epileptiform in nature. In combination with the slow background, these findings indicate mild diffuse cerebral dysfunction. No seizures were recorded. No epileptiform activity was present. The ordering physician was contacted at 2:15 p.m. on 06/27/2018. MMODL / IJN: [id number] /
[2018-06-27 17:04] LABS: Glucose,Whole Blood 153 mg/dL (75-99)
[2018-06-27] MEDS: LATANOPROST 0.005% OPHTH DROPS 2.5 ML BTL LEFT EYE SCH (19:33)
[2018-06-27] MEDS: prednisoLONE ACETATE 1% OPHTH DROPS 5 ML BTL BOTH EYES SCH (19:33)
[2018-06-27] MEDS: ALPRAZolam 0.25 MG TAB PO SCH (19:33)
[2018-06-27] MEDS: MIRTAZAPINE 15 MG TAB PO SCH (19:34)
[2018-06-27] MEDS: NYSTATIN 100,000 UNIT/GM POWD 15 GM TOPICAL SCH (19:34)
[2018-06-27 20:56] LABS: Glucose,Whole Blood 113 mg/dL (75-99)
--- NOTE | 2018-06-27 22:10 | PN ---
PROGRESS NOTE DATE OF SERVICE: 06/27/2018. REASON FOR FOLLOWUP: UTI and a sacral pressure ulcer. INTERVAL HISTORY: The patient is currently afebrile. She is breathing comfortably. The patient was not as agitated today. No nausea or vomiting has been reported or any diarrhea by the nursing staff. PHYSICAL EXAMINATION: Blood pressure 166/76, pulse of 98, temperature 98.2. She is 93% on room air. General description is an elderly female up in the bed in no distress. RESPIRATORY SYSTEM: Unlabored breathing. Clear to auscultation anteriorly. HEART: S1, S2. Regular rate and rhythm. ABDOMEN: Soft. No tenderness. LABS: No new labs today. Urine culture currently pending. DIAGNOSTIC IMPRESSION AND PLAN: 1. Patient admitted to hospital with a seizure in this patient who did have treatment with Invanz for extended-spectrum beta-lactamase Escherichia coli, questionably related. That has been discontinued. Repeat urine was positive. Cultures pending after change of Urban catheter. Currently on Rocephin. Continue for now. 2. Patient with a stage II sacral pressure ulcer, for which the patient has been refusing dressing changes the wound today. Will attempt tomorrow. Keep the area off pressure and dry. Continue supportive care. MMODL / IJN: [id number] /
--- NOTE | 2018-06-27 22:49 | PN ---
PROGRESS NOTE SUBJECTIVE: An 82-year-old white female, status post atrial fibrillation, started taking medicine now. Off Cardizem drip. Being treated for UTI with IV Rocephin. OBJECTIVE: Cardiovascular S1, S2. Lungs are clear. Psych, she is responding. GI soft. ASSESSMENT: 1. New onset seizure secondary to Invanz. 2. Chronic obstructive pulmonary disease. 3. Urinary tract infection. 4. Congestive heart failure. 5. Possible brain mass. 6. Chronic dementia. PLAN: Continue current treatments with Depakote and current medications. Possible discharge home within 24 to 48 hours. Will get her medicines switched to oral and give some antibiotics for the UTI. MMODL / IJN: [id number] /
[2018-06-28] MEDS: DILTIAZEM 50 MG in SODIUM CHLORIDE 0.9% 40 ML IV SCH ×4 (02:40→23:42)
[2018-06-28] MEDS: CINACALCET 30 MG TAB PO SCH (06:18)
[2018-06-28] MEDS: INSULIN ASPART 100 UNIT/ML 1 ML 10 ML VIAL SQ SCH ×4 (06:18→21:17)
[2018-06-28] MEDS: LEVOTHYROXINE 25 MCG TAB PO SCH (06:18)
[2018-06-28] MEDS: NITROGLYCERIN OINT 1 INCH/GM PACKET TOPICAL SCH ×4 (06:18→23:36)
[2018-06-28 06:19] LABS: Glucose,Whole Blood 115 mg/dL (75-99)
[2018-06-28] MEDS: IPRATROPIUM-ALBUTEROL 3 ML NEB INHALATION SCH ×4 (08:32→21:41)
[2018-06-28] MEDS: APIXABAN 2.5 MG TABLET PO SCH ×2 (09:06→21:15)
[2018-06-28] MEDS: FERROUS SULFATE 325 MG TAB PO SCH ×2 (09:06→21:15)
[2018-06-28] MEDS: METOPROLOL TARTRATE 50 MG TAB PO SCH ×2 (09:06→22:41)
[2018-06-28] MEDS: LORATADINE 10 MG TAB PO SCH (09:06)
[2018-06-28] MEDS: FUROSEMIDE 40 MG TAB PO SCH ×2 (09:06→18:51)
[2018-06-28] MEDS: hydrALAZINE HCL 25 MG TAB PO SCH ×3 (09:06→21:16)
[2018-06-28] MEDS: DIVALPROEX 250 MG TABLET.DR PO SCH ×2 (09:07→21:15)
[2018-06-28] MEDS: FLUTICASONE 50MCG/SPRAY NASAL 16GM EA NOSTRIL SCH ×2 (09:07→22:45)
[2018-06-28 11:24] LABS: Glucose,Whole Blood 96 mg/dL (75-99)
--- NOTE | 2018-06-28 18:45 | PN ---
PROGRESS NOTE DATE OF SERVICE: June 28, 2018 INTERVAL HISTORY: This is a pleasant 82-year-old female patient with chronic atrial fibrillation as well as change in mental status. I did follow up on the patient today, unfortunately we do not have computer access because the system is down. The patient continues to be confused. She continues to be in atrial fibrillation with controlled heart rate. She continues refusing all her p.o. medication at this point. There was some discussion that the patient might go into hospice. We will continue following up with the patient unless she goes hospice. CLAUDIA / IJN: [id number] /
[2018-06-28 18:47] LABS: Glucose,Whole Blood 85 mg/dL (75-99)
[2018-06-28 20:32] LABS: Glucose,Whole Blood 79 mg/dL (75-99)
[2018-06-28] MEDS: ALPRAZolam 0.25 MG TAB PO SCH (21:15)
[2018-06-28] MEDS: MIRTAZAPINE 15 MG TAB PO SCH (21:15)
[2018-06-28] MEDS: NYSTATIN 100,000 UNIT/GM POWD 15 GM TOPICAL SCH (22:41)
[2018-06-28] MEDS: LATANOPROST 0.005% OPHTH DROPS 2.5 ML BTL LEFT EYE SCH (22:41)
[2018-06-28] MEDS: prednisoLONE ACETATE 1% OPHTH DROPS 5 ML BTL BOTH EYES SCH (22:42)
[2018-06-28] MEDS: AMPICILLIN-SULBACTAM 1.5 GM in SODIUM CHLORIDE 0.9% 50 ML IVPB SCH (23:35)
--- NOTE | 2018-06-29 03:03 | PN ---
PROGRESS NOTE DATE OF SERVICE: 06/28/2018 REASON FOR FOLLOW UP: 1. UTI. 2. Sacral pressure ulcer. INTERVAL HISTORY: The patient is currently afebrile. Per nursing staff the patient has been refusing treatment on oral pills and at times will not allow nasal oxygen. The patient is very hard of hearing and only says I'm okay when asked questions. Did not provide any history. No nausea, vomiting or diarrhea per the nursing staff. On examination, blood pressure is 174/76, pulse of 106, temperature 98.1, she is 94% on room air. GENERAL DESCRIPTION: An elderly female up in the bed in no distress. RESPIRATORY SYSTEM: Unlabored breathing. Decreased breath sounds in the bases. No wheeze. HEART: S1, S2. Regular rate and rhythm. ABDOMEN: Soft, no tenderness. EXTREMITIES: No edema of the feet. LABS: No new labs have been obtained today. DIAGNOSTIC IMPRESSION/PLAN: 1. Patient in hospital with seizures, could have been related to the Invanz that the patient was on. Repeat urine culture did not show any Enterococcus. We will switch her over to Unasyn 1.5 q8h. Repeat CBC and BMP tomorrow as well. 2. Sacral wound infection. The patient did not know anybody to look at that wound ( ) treated. Continue supportive care. MMODL / IJN: [id number] /
[2018-06-29 05:51] LABS: Glucose,Whole Blood 72 mg/dL (75-99)
[2018-06-29] MEDS: DILTIAZEM 50 MG in SODIUM CHLORIDE 0.9% 40 ML IV SCH ×4 (06:04→23:12)
[2018-06-29] MEDS: INSULIN ASPART 100 UNIT/ML 1 ML 10 ML VIAL SQ SCH ×4 (06:04→21:17)
[2018-06-29 06:13] LABS: Anisocytosis Slight; Basophils % (A) 0 %; Eosinophils # (A) 0.1 k/uL (0-0.7); Eosinophils % (A) 1 %; HCT 40.1 % (34.0-46.0); HGB 12.2 gm/dL (11.4-16.0); Hypochromasia Moderate; Lymphocytes # (A) 0.5 k/uL (1.0-4.8); Lymphocytes % (A) 4 %; MCH 26.5 pg (25.0-35.0); MCHC 30.4 g/dL (31.0-37.0); MCV 87.3 fL (80.0-100.0); Monocytes # (A) 0.5 k/uL (0-1.0); Monocytes % (A) 4 %; Neutrophils # (A) 10.9 k/uL (1.3-7.7); Neutrophils % (A) 89 %; Platelet Count 201 k/uL (150-450); RBC 4.59 m/uL (3.80-5.40); RDW 17.4 % (11.5-15.5); WBC 12.2 k/uL (3.8-10.6)
[2018-06-29 06:29] LABS: Calcium 9.3 mg/dL (8.4-10.2); Potassium 3.8 mmol/L (3.5-5.1)
[2018-06-29] MEDS: NITROGLYCERIN OINT 1 INCH/GM PACKET TOPICAL SCH ×4 (06:47→23:12)
[2018-06-29] MEDS: CINACALCET 30 MG TAB PO SCH (06:47)
[2018-06-29] MEDS: LEVOTHYROXINE 25 MCG TAB PO SCH (06:47)
[2018-06-29] MEDS: IPRATROPIUM-ALBUTEROL 3 ML NEB INHALATION SCH ×4 (08:43→19:33)
[2018-06-29] MEDS: AMPICILLIN-SULBACTAM 1.5 GM in SODIUM CHLORIDE 0.9% 50 ML IVPB SCH ×2 (10:02→16:36)
[2018-06-29] MEDS: FERROUS SULFATE 325 MG TAB PO SCH ×2 (10:03→21:15)
[2018-06-29] MEDS: METOPROLOL TARTRATE 50 MG TAB PO SCH ×2 (10:03→21:15)
[2018-06-29] MEDS: APIXABAN 2.5 MG TABLET PO SCH ×2 (10:03→21:15)
[2018-06-29] MEDS: FUROSEMIDE 40 MG TAB PO SCH ×2 (10:03→16:36)
[2018-06-29] MEDS: hydrALAZINE HCL 25 MG TAB PO SCH ×3 (10:03→21:16)
[2018-06-29] MEDS: LORATADINE 10 MG TAB PO SCH (10:03)
[2018-06-29] MEDS: FLUTICASONE 50MCG/SPRAY NASAL 16GM EA NOSTRIL SCH ×2 (10:04→21:16)
[2018-06-29] MEDS: DIVALPROEX 250 MG TABLET.DR PO SCH ×2 (10:04→21:16)
--- NOTE | 2018-06-29 10:53 | P.PN ---
Subjective Progress Note Date: 06/29/18 Principal diagnosis: Atrial fibrillation This is an 82-year-old female patient who is known to our service before with a past medical history significant for chronic persistent atrial fibrillation on oral anticoagulation as well as history of congestive heart failure secondary to diastolic dysfunction was brought from an extended-care facility today emergency room after she had a seizure. The patient did have to episodes of seizure. The first episode was at the long term and the second one was in route to the hospital. The patient is known to have seizure disorder and she is on medications for that. When I came in to interview the patient, the patient was lethargic and confused. She is overall very poor historian. No indication of any chest pain or chest discomfort. The patient was laying flat in bed. She does not seems to be in any acute respiratory distress. The EKG showed atrial fibrillation without any ischemic ST or T-wave abnormalities. 3 sets of enzymes came in to be slightly abnormal but are below 1 and likely related to the tachycardia and the patient presented to the hospital. The chest x-ray showed findings consistent with CHF but the patient does not seems to be in congestive heart failure exacerbation at this point. Patient underwent an echocardiogram in March 2018 and that revealed normal LV function without any significant valvular abnormalities. On follow-up with the patient today, 06/29/2018, the patient continues to be confused as well as agitated and with difficulties giving her her by mouth medications. She continues to be in atrial fibrillation was controlled heart rate. She continues to be on oral anticoagulation as well. I am quite concerned about oral anticoagulation giving her status of being confused as well as of high risk of falling and bleeding. Objective - Vital Signs Vital signs: Vital Signs Temp 98.2 F 06/29/18 04:00 Pulse 106 H 06/29/18 08:00 Resp 16 06/29/18 08:00 BP 144/69 06/29/18 08:00 Pulse Ox 93 L 06/29/18 08:00 Intake & Output 06/28/18 06/29/18 06/29/18 18:59 06:59 18:59 Intake Total 10 Output Total 600 Balance -590 Weight 75.3 kg Intake: IV 10 Invasive Line 3 10 Output: Urine 600 Other: Voiding Method Indwelling Catheter - Constitutional General appearance: Present: no acute distress - Respiratory Respiratory: bilateral: diminished - Cardiovascular Rhythm: irregularly irregular Heart sounds: normal: S1, S2 - Labs CBC & Chem 7: 06/29/18 05:46 06/29/18 05:46 Labs: Abnormal Lab Results - Last 24 Hours (Table) 06/29/18 06/29/18 06/29/18 Range/Units 05:46 05:46 05:50 WBC 12.2 H (3.8-10.6) k/uL MCHC 30.4 L (31.0-37.0) g/dL RDW 17.4 H (11.5-15.5) % Neutrophils # 10.9 H (1.3-7.7) k/uL Lymphocytes # 0.5 L (1.0-4.8) k/uL Chloride 111 H (98-107) mmol/L BUN 22 H (7-17) mg/dL Creatinine 1.17 H (0.52-1.04) mg/dL POC Glucose (mg/dL) 72 L (75-99) mg/dL Microbiology - Last 24 Hours (Table) 06/26/18 14:45 Urine Culture - Final Urine,Catheterized Enterococcus faecium Assessment and Plan Assessment: Assessment #1 recurrent seizure. The patient is known to have seizure #2 chronic persistent atrial fibrillation. The heart rate seems to be not well- controlled #3 CHF secondary to diastolic dysfunction, chronic. Plan #1 continue the current medical regimen #2 address oral anticoagulation and possible DC them Thank you for allowing us participate in her care and we'll continue following up with
[2018-06-29 11:40] LABS: Glucose,Whole Blood 212 mg/dL (75-99)
--- NOTE | 2018-06-29 11:57 | P.PN ---
Subjective Progress Note Date: 06/29/18 Interval history: 06/29/18- patient is being seen examined and evaluated today while covering for Dr. Pablo Dooley. Patient is being treated for a UTI is being treated with IV antibiotics, infectious disease is on consult as well. Patient did have a seizure at home. She did have A. fib and cardiology is following with her closely. The patient intermittently is refusing her medications. Discharge planning is underway the patient may potentially go to [facility] tomorrow. Upon examination the patient's resting up in bed on room air. She denies any shortness of breath cough or congestion. She has been afebrile no further complaints. Case is discussed with her bedside nurse. Objective - Vital Signs Vital signs: Vital Signs Temp 98.2 F 06/29/18 04:00 Pulse 106 H 06/29/18 08:00 Resp 16 06/29/18 11:26 BP 144/69 06/29/18 08:00 Pulse Ox 93 L 06/29/18 08:00 Intake & Output 06/28/18 06/29/18 06/29/18 18:59 06:59 18:59 Intake Total 10 20 Output Total 600 Balance -590 20 Weight 75.3 kg Intake: IV 10 20 Invasive Line 3 10 20 Output: Urine 600 Other: Voiding Method Indwelling Catheter Indwelling Catheter - Exam GENERAL EXAM: Alert, underlying dementia, comfortable in no apparent distress. HEAD: Normocephalic. EYES: Normal reaction of pupils, equal size. NOSE: Clear with pink turbinates. THROAT: No erythema or exudates. NECK: No masses, no JVD. CHEST: No chest wall deformity. LUNGS: Equal air entry with no crackles, wheeze, rhonchi or dullness. CVS: S1 and S2 normal with no audible mumurs, regular rhythm. ABDOMEN: No hepatosplenomegaly, normal bowel sounds, no guarding or rigidity. EXTREMITIES: No edema noted, pedal pulses palpable. CENTRAL NERVOUS SYSTEM: No focal deficits, tone is normal in all 4 extremities. - Labs CBC & Chem 7: 06/29/18 05:46 06/29/18 05:46 Labs: Abnormal Lab Results - Last 24 Hours (Table) 06/29/18 06/29/18 06/29/18 Range/Units 05:46 05:46 05:50 WBC 12.2 H (3.8-10.6) k/uL MCHC 30.4 L (31.0-37.0) g/dL RDW 17.4 H (11.5-15.5) % Neutrophils # 10.9 H (1.3-7.7) k/uL Lymphocytes # 0.5 L (1.0-4.8) k/uL Chloride 111 H (98-107) mmol/L BUN 22 H (7-17) mg/dL Creatinine 1.17 H (0.52-1.04) mg/dL POC Glucose (mg/dL) 72 L (75-99) mg/dL 06/29/18 Range/Units 11:13 WBC (3.8-10.6) k/uL MCHC (31.0-37.0) g/dL RDW (11.5-15.5) % Neutrophils # (1.3-7.7) k/uL Lymphocytes # (1.0-4.8) k/uL Chloride (98-107) mmol/L BUN (7-17) mg/dL Creatinine (0.52-1.04) mg/dL POC Glucose (mg/dL) 212 H (75-99) mg/dL Microbiology - Last 24 Hours (Table) 06/26/18 14:45 Urine Culture - Final Urine,Catheterized Enterococcus faecium Assessment and Plan Assessment: Assessment New-onset seizures COPD UTI CHF Possible brain mass Chronic dementia Plan Agree with discharge planning to [facility] Infectious disease on consult, antibiotics per ID Medications have been reviewed and will be continued as ordered. Continue with pulmonary hygiene, coughing and deep breathing exercises, and supportive care. Supplemental oxygen to maintain oxygen saturations of 92% or better. . GI and DVT prophylaxis. We will continue to monitor labs/results and adjust treatment as necessary. Further recommendations pending. I, the signing physician performed an examination of the patient, discussed and directed their management with the nurse practitioner. I have reviewed the nurse practitioner's note and agree with the documented findings, orders and plan of care. Nurse practitioner acting as a scribe for the signing physician Please note we are covering for Dr. Pablo Dooley
[2018-06-29] MEDS: ACETAMINOPHEN TAB 325 MG TAB PO PRN ×2 (13:01→23:59)
[2018-06-29 16:40] LABS: Glucose,Whole Blood 56 mg/dL (75-99)
[2018-06-29 16:57] LABS: Glucose,Whole Blood 74 mg/dL (75-99)
--- NOTE | 2018-06-29 17:31 | PN ---
PROGRESS NOTE DATE OF SERVICE: 06/28/2018. SUBJECTIVE: 82-year-old white female, new onset seizure, having no chest pain or shortness of breath. She is awake. She is eating and taking her pills. She is off the Cardizem drip. Possibly discharge to skilled nursing when cleared by Cardiology and as long she stays awake and we treat her for infections for the UTI. Continue with current treatment. Follow up in next 24-48 hours for possible discharge. MMBRYSONL / IJN: [id number] /
[2018-06-29 21:07] LABS: Glucose,Whole Blood 120 mg/dL (75-99)
[2018-06-29] MEDS: ALPRAZolam 0.25 MG TAB PO SCH (21:15)
[2018-06-29] MEDS: MIRTAZAPINE 15 MG TAB PO SCH (21:15)
[2018-06-29] MEDS: NYSTATIN 100,000 UNIT/GM POWD 15 GM TOPICAL SCH (21:16)
[2018-06-29] MEDS: LATANOPROST 0.005% OPHTH DROPS 2.5 ML BTL LEFT EYE SCH (21:16)
[2018-06-29] MEDS: prednisoLONE ACETATE 1% OPHTH DROPS 5 ML BTL BOTH EYES SCH (21:17)
[2018-06-29] MEDS ORDERED: VANCOMYCIN IV PER PHARMACY 1 EACH MISC MISCELLANE PRN (22:43)
[2018-06-30] MEDS ORDERED: VANCOMYCIN 1,250 MG in SODIUM CHLORIDE 0.9% 250 ML IVPB SCH ×2
--- NOTE | 2018-06-30 00:13 | PN ---
PROGRESS NOTE DATE OF SERVICE: 06/29/2018. REASON FOR FOLLOWUP: Urinary tract infection. INTERVAL HISTORY: The patient is currently afebrile. The patient remains to be pleasantly confused. Denies having any chest pain. No cough. No abdominal pain. No diarrhea. PHYSICAL EXAMINATION: Blood pressure 123/60 with a pulse of 91, temperature 97.3. GENERAL DESCRIPTION: An elderly female, lying in bed in no distress. RESPIRATORY SYSTEM: Unlabored breathing. Clear to auscultation anteriorly. HEART: S1, S2. Regular rate and rhythm. ABDOMEN: Soft, no tenderness. LABS: White count elevated 12.2, creatinine is 1.17. Urine is showing Enterococcus faecium that is resistant to ampicillin. DIAGNOSTIC IMPRESSION AND PLAN: Patient with Enterococcus faecium urinary tract infection. has already been changed. He will discontinue Unasyn and give short course of vancomycin or based on clinical course and culture. He cannot use the Zyvox because of the patient being on Remeron. Continue supportive care. MMODL / IJN: [id number] /
[2018-06-30] MEDS: LEVOTHYROXINE 25 MCG TAB PO SCH (06:04)
[2018-06-30] MEDS: CINACALCET 30 MG TAB PO SCH (06:04)
[2018-06-30] MEDS: NITROGLYCERIN OINT 1 INCH/GM PACKET TOPICAL SCH ×3 (06:06→19:25)
[2018-06-30 06:34] LABS: Glucose,Whole Blood 83 mg/dL (75-99)
[2018-06-30] MEDS: INSULIN ASPART 100 UNIT/ML 1 ML 10 ML VIAL SQ SCH ×3 (06:44→19:25)
[2018-06-30] MEDS ORDERED: NA PHOS,M-B/NA PHOS,DI-BA 133 ML ENEMA RECTAL STA (08:35)
[2018-06-30] MEDS: IPRATROPIUM-ALBUTEROL 3 ML NEB INHALATION SCH ×3 (08:39→16:31)
[2018-06-30] MEDS ORDERED: NITROFURANTOIN MONOHYD/M-CRYST 100 MG CAP PO SCH (09:00)
[2018-06-30] MEDS: DIVALPROEX 250 MG TABLET.DR PO SCH (09:25)
[2018-06-30] MEDS: METOPROLOL TARTRATE 50 MG TAB PO SCH (09:25)
[2018-06-30] MEDS: FUROSEMIDE 40 MG TAB PO SCH (09:25)
[2018-06-30] MEDS: APIXABAN 2.5 MG TABLET PO SCH (09:26)
--- NOTE | 2018-06-30 09:27 | P.PN ---
Subjective Progress Note Date: 06/30/18 Principal diagnosis: Atrial fibrillation This is an 82-year-old female patient who is known to our service before with a past medical history significant for chronic persistent atrial fibrillation on oral anticoagulation as well as history of congestive heart failure secondary to diastolic dysfunction was brought from an extended-care facility today emergency room after she had a seizure. The patient did have to episodes of seizure. The first episode was at the detention and the second one was in route to the hospital. The patient is known to have seizure disorder and she is on medications for that. When I came in to interview the patient, the patient was lethargic and confused. She is overall very poor historian. No indication of any chest pain or chest discomfort. The patient was laying flat in bed. She does not seems to be in any acute respiratory distress. The EKG showed atrial fibrillation without any ischemic ST or T-wave abnormalities. 3 sets of enzymes came in to be slightly abnormal but are below 1 and likely related to the tachycardia and the patient presented to the hospital. The chest x-ray showed findings consistent with CHF but the patient does not seems to be in congestive heart failure exacerbation at this point. Patient underwent an echocardiogram in March 2018 and that revealed normal LV function without any significant valvular abnormalities. On follow-up with the patient today, 06/30/2018, the patient continues to be confused as well as agitated and with difficulties giving her her by mouth medications. She continues to be in atrial fibrillation was slightly uncontrolled heart rate. We will follow-up with the patient on when necessary case. Objective - Vital Signs Vital signs: Vital Signs Temp 96.9 F L 06/30/18 08:00 Pulse 106 H 06/30/18 08:00 Resp 16 06/30/18 08:00 BP 141/67 06/30/18 08:00 Pulse Ox 91 L 06/30/18 08:00 Intake & Output 06/29/18 06/30/18 06/30/18 18:59 06:59 18:59 Intake Total 70 400 Output Total 1275 Balance 70 -875 Weight 65.5 kg Intake: IV 30 30 Invasive Line 3 30 30 Intake, IV Titration 250 Amount Vancomycin 1,250 mg In 250 Sodium Chloride 0.9% 250 ml @ 125 mls/hr IVPB Q24H [facility] Rx#:[id number] Oral 40 120 Output: Urine 1275 Uretheral (Urban) 900 Other: Voiding Method Indwelling Catheter Indwelling Catheter # Voids 1 # Bowel Movements 1 - Constitutional General appearance: Present: no acute distress - Labs CBC & Chem 7: 06/29/18 05:46 06/29/18 05:46 Labs: Abnormal Lab Results - Last 24 Hours (Table) 06/29/18 06/29/18 06/29/18 Range/Units 11:13 16:18 16:55 POC Glucose (mg/dL) 212 H 56 L 74 L (75-99) mg/dL 06/29/18 Range/Units 21:02 POC Glucose (mg/dL) 120 H (75-99) mg/dL Assessment and Plan Assessment: Assessment #1 recurrent seizure. The patient is known to have seizure #2 chronic persistent atrial fibrillation. The heart rate seems to be not well- controlled #3 CHF secondary to diastolic dysfunction, chronic. Plan #1 continue the current medical regimen #2 we'll follow-up with the patient on when necessary case per
[2018-06-30] MEDS: FERROUS SULFATE 325 MG TAB PO SCH (09:33)
[2018-06-30] MEDS: FLUTICASONE 50MCG/SPRAY NASAL 16GM EA NOSTRIL SCH (09:34)
[2018-06-30] MEDS: LORATADINE 10 MG TAB PO SCH (09:34)
[2018-06-30] MEDS: hydrALAZINE HCL 25 MG TAB PO SCH ×2 (10:01→16:19)
[2018-06-30 11:47] VITALS: TEMP 97.5
[2018-06-30 11:57] LABS: Glucose,Whole Blood 97 mg/dL (75-99)
--- NOTE | 2018-06-30 12:47 | PN ---
PROGRESS NOTE DATE OF SERVICE: 06/30/2018 REASON FOR FOLLOWUP: Enterococcus faecium UTI. INTERVAL HISTORY: The patient is currently afebrile. She is breathing comfortably. Denies having any chest pain. No cough. No abdominal pain or diarrhea. PHYSICAL EXAMINATION: On examination, blood pressure 153/69 with a pulse of 80, temperature 97.5. General description is an elderly female lying in bed in no distress. RESPIRATORY SYSTEM: Unlabored breathing. Decreased breath sounds in the bases. No wheeze. HEART: S1, S2. Regular rate and rhythm. ABDOMEN: Soft, no tenderness. Examination of the sacral area did have minimal excoriation, but no open wound. DIAGNOSTIC IMPRESSION AND PLAN: 1. Patient with Enterococcus faecium urinary tract infection. She will finish therapy with oral nitrofurantoin. She is high risk of nephrotoxicity from vancomycin in outpatient setting. 2. Calmoseptine lotion to the sacral area. Keep the area off the pressure and dry. MMODL / IJN: [id number] /
[2018-06-30] MEDS ORDERED: MENTHOL-ZINC OXIDE OINT 113 GM TUBE TOPICAL PRN (16:00)
[2018-06-30 16:18] VITALS: BP 175/84; PULSE 88; RESP 20
[2018-06-30 16:51] LABS: Glucose,Whole Blood 99 mg/dL (75-99)
--- NOTE | 2018-06-30 16:53 | DS ---
DISCHARGE SUMMARY DATE OF DISCHARGE: 06/30/2018 DISCHARGE MEDICATIONS: 1. Depakote 250 b.i.d. 2. Macrobid 100 mg b.i.d. for 10 days. 3. Levothyroxine 25 mcg daily. 4. Fluticasone nasal spray 1 spray each nostril b.i.d. 5. Acetaminophen 650 q.6 hours p.r.n. 6. Alprazolam 0.25 at bedtime. 7. Claritin 10 mg daily. 8. Prednisolone acetate (Pred Forte 1%) 2 drops both eyes at bedtime. 9. Milk of Magnesia 2400 mg p.o. daily. 10.Ferrous sulfate 325 mg b.i.d. 11.Xalatan 1 drop left eye at bedtime. 12.Diamox 250 mg p.o. on Tuesdays. 13.Eliquis 2.5 mg b.i.d. 14.Sensipar 30 mg daily. 15.DuoNeb updraft q.i.d. 16.Diltiazem CD 240 mg p.o. daily. 17.Ensure 1 can t.i.d. with meals. 18.Mirtazapine 7.5 mg at bedtime. 19.Apresoline 75 mg t.i.d. 20.Lopressor 100 mg b.i.d. 21.Lasix 40 mg b.i.d. 22.NovoLog regular insulin 2 units subcutaneously before meals and at bedtime. 23.Prednisone taper: 40 mg daily for 3 days; 20 mg daily for 3 days; 10 mg daily for 3 days; then 5 mg daily after that. 24.Mycostatin powder topically at bedtime. CONDITION: Stable. PROGNOSIS: Guarded. Ambulate as tolerated. DISCHARGE DIAGNOSES: 1. Metabolic encephalopathy secondary to urinary tract infection. 2. Atrial fibrillation with rapid ventricular response. 3. New-onset seizures secondary to Invanz or acute drug reaction. 4. Znu-IE-yhsxpwf-elevation myocardial infarction. 5. Hypothyroidism. 6. Diabetes mellitus. 7. Chronic renal disease, stage III. This is a white male who came to the hospital with metabolic encephalopathy with chronic kidney disease, stage III, and a seizure secondary to Invanz for a drug- resistant UTI. Repeat urine culture showed positive treatment with Macrobid for ESBL after receiving different IV antibiotics in the hospital, including vancomycin. The patient's mentation cleared up and her atrial fibrillation with rapid ventricular response was good with Cardizem drip and was okay as long as she takes her oral medications. Oral medications taken as patient clearly improved once her mentation improved from treatment for the UTI. Patient's mentation improved and her atrial fibrillation was able to be better controlled with her oral medications. She is back to her baseline status. She will be sent to the custodial at this time. MMBRYSONL / IJN: [id number] /
--- NOTE | 2018-06-30 16:53 | DS ---
DISCHARGE SUMMARY ADDENDUM TO DISCHARGE SUMMARY: 1. Macrobid 100 mg b.i.d. for 10 days. 2. Prednisone 10 mg 1 daily indefinitely. MMODL / IJN: [id number] /
[2018-06-30] MEDS: DILTIAZEM 50 MG in SODIUM CHLORIDE 0.9% 40 ML IV SCH (19:26)
[2018-07-01] MEDS ORDERED: acetaZOLAMIDE 250 MG TAB PO SCH (09:00)
== END 2018-06-30 19:34 | DRG 100 ==
LOC: EC 08:47 → 3SCARD 12:07
PROVIDERS: ADMIT Family Medicine; ATTEND Family Medicine
DX: G40.909 Epilepsy, unspecified, not intractable, without status epilepticus (principal); G93.41 Metabolic encephalopathy; I21.4 Non-ST elevation (NSTEMI) myocardial infarction; N18.4 Chronic kidney disease, stage 4 (severe); N39.0 Urinary tract infection, site not specified; I48.1 Persistent atrial fibrillation; I50.32 Chronic diastolic (congestive) heart failure; I13.0 Hypertensive heart and chronic kidney disease with heart failure and stage 1 through stage 4 chronic kidney disease, or unspecified chronic kidney disease; Z66 Do not resuscitate; L89.152 Pressure ulcer of sacral region, stage 2; J84.10 Pulmonary fibrosis, unspecified; E11.22 Type 2 diabetes mellitus with diabetic chronic kidney disease; J44.9 Chronic obstructive pulmonary disease, unspecified; F03.90 Unspecified dementia, unspecified severity, without behavioral disturbance, psychotic disturbance, mood disturbance, and anxiety; T36.1X5A Adverse effect of cephalosporins and other beta-lactam antibiotics, initial encounter; B95.2 Enterococcus as the cause of diseases classified elsewhere; Z16.11 Resistance to penicillins; K21.9 Gastro-esophageal reflux disease without esophagitis; E78.5 Hyperlipidemia, unspecified; H54.7 Unspecified visual loss; E03.9 Hypothyroidism, unspecified; G47.00 Insomnia, unspecified; H40.9 Unspecified glaucoma; H91.92 Unspecified hearing loss, left ear; Z79.01 Long term (current) use of anticoagulants; Z79.4 Long term (current) use of insulin; Z79.890 Hormone replacement therapy; Z79.899 Other long term (current) drug therapy; Z87.730 Personal history of (corrected) cleft lip and palate; Z87.721 Personal history of (corrected) congenital malformations of ear; Z87.75 Personal history of (corrected) congenital malformations of respiratory system; Z97.4 Presence of external hearing-aid; Z87.440 Personal history of urinary (tract) infections; Z87.39 Personal history of other diseases of the musculoskeletal system and connective tissue; Z87.81 Personal history of (healed) traumatic fracture; Z87.820 Personal history of traumatic brain injury; Z90.710 Acquired absence of both cervix and uterus; Z96.652 Presence of left artificial knee joint; Z87.891 Personal history of nicotine dependence; Z86.19 Personal history of other infectious and parasitic diseases; Z87.01 Personal history of pneumonia (recurrent); Z80.0 Family history of malignant neoplasm of digestive organs; Z82.61 Family history of arthritis; Z84.1 Family history of disorders of kidney and ureter; Y92.129 Unspecified place in nursing home as the place of occurrence of the external cause
CPT/HCPCS: 36415; 70450; 71046; 80048; 80053; 80306; 81001; 82550; 82553; 84484; 85025; 85610; 85730; 87077; 87086; 87186; 93005; 94640; 95819; 96361; 96365; 96375; 99285